=== PATIENT | female | born 1955 | race Hispanic/Latino ===

== ENCOUNTER 2018-02-06 03:59 | Inpatient (IN) | payer BC ==
[2018-02-06 04:06] VITALS: BMI 43.8
[2018-02-06] MEDS ORDERED: Cefepime IV 2 gm in NS 2 GM/100 ML BAG IVPB STA (04:41)
[2018-02-06] MEDS ORDERED: Vancomycin 1gm in NS 250ml 1 GM/250 ML BAG IVPB STA (04:41)
--- NOTE | 2018-02-06 04:41 | ED PDOC ---
Arrival/HPI - General Chief Complaint: Altered Mental Status Time Seen by Provider: 02/06/18 04:02 Historian: Patient, Shelter - History of Present Illness Narrative History of Present Illness (Text): 02/06/18 04:41 Smiley Caldera is a 62 year old female, whose past medical history includes hypertension, degenerative arthritis, kidney stones, and uterine cancer, who presents to the Emergency department transferred from [facility] for fever. Relative reports patient was recently transferred to [facility] for rehabilitation following treatment for sepsis at [facility]. As per [facility] documentation, patient developed a fever tonight, max temperature at 103F, with associated confusion. Patient received Tylenol at [facility] earlier tonight. Patient denies any abdominal pain, chest pain, back pain, nausea, vomiting, diarrhea, or any other complaints. Symptom Onset: Gradual Symptom Course: Unchanged Activities at Onset: Light Context: Home (custodial) Past Medical History - Provider Review Nursing Documentation Reviewed: Yes - Cardiac Hx Hypertension: Yes - Hematological/Oncological Hx Cancer: Yes - Musculoskeletal/Rheumatological Hx Falls: No - Genitourinary/Gynecological Hx Uterine Cancer: Yes - Psychiatric Hx Depression: No Hx Emotional Abuse: No Hx Physical Abuse: No Hx Substance Use: No - Surgical History Hx Hysterectomy: Yes - Suicidal Assessment Feels Threatened In Home Enviroment: No Family/Social History - Physician Review Nursing Documentation Reviewed: Yes Family/Social History: Unknown Family HX Smoking Status: Never Smoked Hx Alcohol Use: No Hx Substance Use: No Hx Substance Use Treatment: No Allergies/Home Meds Allergies/Adverse Reactions: Allergies No Known Allergies Allergy (Verified 02/06/18 11:59) Home Medications: Home Meds Medication Instructions Recorded Confirmed Acetaminophen [Tylenol] 650 mg PO PRN PRN 02/06/18 02/06/18 Albuterol HFA [Ventolin HFA 90 2 puff IH [id number] PRN 02/06/18 02/06/18 mcg/actuation (8 g)] Apixaban [Eliquis] 5 mg PO BID 02/06/18 02/06/18 Ascorbic Acid [Vitamin C] 500 mg PO DAILY 02/06/18 02/06/18 Atropine/Diphenoxylate [Lonox 1 tab PO Q6 PRN 02/06/18 02/06/18 0.025 MG-2.5 MG] Doxazosin [Cardura] 4 mg PO DAILY 02/06/18 02/06/18 Ferrous Sulfate 325 mg PO DAILY 02/06/18 02/06/18 Metoprolol Tartrate [Lopressor] 200 mg PO Q12 02/06/18 02/06/18 Multivitamin [Multi-Vitamin Daily] 1 each PO DAILY 02/06/18 02/06/18 NIFEdipine ER [Procardia XL] 90 mg PO DAILY 02/06/18 02/06/18 Ondansetron [Zuplenz] 4 mg PO Q6 PRN 02/06/18 02/06/18 Ranitidine HCl [Sunmark Acid 150 mg PO Q12 02/06/18 02/06/18 Aircraft Ordnance Technician] Silver Sulfadiazine 1% [Silvadene 1 appl TD DAILY 02/06/18 02/06/18 1%] Simvastatin [Zocor] 20 mg PO DAILY 02/06/18 02/06/18 Zinc Sulfate [Zinc Sulfate] 220 mg PO DAILY 02/06/18 02/06/18 cloNIDine [clonidine HCl] 0.1 mg PO DAILY 02/06/18 02/06/18 hydrALAZINE [hydralazine 10 mg PO Q8 02/06/18 02/06/18 Hydrochloride] Review of Systems - Physician Review All systems were reviewed & negative as marked: Yes - Review of Systems Constitutional: Fevers Eyes: Normal ENT: Normal Respiratory: Normal Cardiovascular: absent: Chest Pain Gastrointestinal: absent: Abdominal Pain, Diarrhea, Nausea, Vomiting Musculoskeletal: absent: Back Pain Physical Exam Vital Signs Reviewed: Yes Vital Signs Temp Pulse Resp BP Pulse Ox 02/06/18 10:00 101.7 F H 76 18 161/77 H 99 02/06/18 09:08 146/70 02/06/18 09:05 102.1 F H 02/06/18 08:53 102.1 F H 95 H 18 96 02/06/18 07:35 102.7 F H 02/06/18 06:03 103.9 F H 91 H 20 165/69 H 95 02/06/18 05:00 130/82 02/06/18 04:41 80 18 158/76 H 95 02/06/18 04:18 103.5 F H 110 H 20 98 Temperature: Febrile Pulse: Tachycardic Respiratory Rate: Normal Appearance: Positive for: Non-Toxic Pain Distress: None Mental Status: Positive for: Lethargic - Systems Exam Head: Present: Atraumatic, Normocephalic Pupils: Present: PERRL Extroacular Muscles: Present: EOMI Conjunctiva: Present: Normal Mouth: Present: Moist Mucous Membranes Neck: Present: Normal Range of Motion Respiratory/Chest: Present: Clear to Auscultation, Good Air Exchange. No: Respiratory Distress, Accessory Muscle Use Cardiovascular: Present: Regular Rate and Rhythm, Normal S1, S2. No: Murmurs Abdomen: No: Tenderness, Distention, Peritoneal Signs Upper Extremity: Present: Normal Inspection. No: Cyanosis, Edema Lower Extremity: Present: Normal Inspection. No: Edema Neurological: Present: GCS=15, CN II-XII Intact Skin: Present: Warm, Dry, Normal Color. No: Rashes Psychiatric: Present: Lethargic Medical Decision Making ED Course and Treatment: 02/06/18 04:41 Impression: 62 year old female brought in from [facility] for fever and confusion. Plan: -- EKG -- Chest X-ray -- Labs, VBG, troponin, blood cultures -- Urinalysis, urine cultures -- IV fluids -- Vancomycin -- Cefepime -- Reassess and disposition Progress Notes: 02/06/18 05:06 Reviewed EKG, sinus rhythm at 98 bpm. RBBB. LAFB. Non-specific ST/T wave changes. 02/06/18 05:34 Chest X-ray reviewed, shows no acute processes. case d/w dr woods will admit - Lab Interpretations Microbiology Results: Microbiology Results 02/06/18 04:40 Blood Blood Culture - Preliminary NO GROWTH AFTER 48 HOURS 02/06/18 04:20 Blood Blood Culture - Preliminary NO GROWTH AFTER 48 HOURS Lab Results: 02/06/18 04:20 02/06/18 04:20 Lab Results 02/06/18 04:20: Blood Type A POSITIVE, Antibody Screen Negative, Crossmatch See Detail, BBK History Checked No verified bt 02/06/18 04:20: Sodium 135, Chloride 101, Potassium 4.4, Carbon Dioxide 19 L, Anion Gap 19, BUN 32 H, Creatinine 2.7 H, Est GFR ( Amer) 21, Est GFR ( Non-Af Amer) 18, Random Glucose 135 H, Calcium 8.7, Phosphorus 3.3, Magnesium 2.1, Total Bilirubin 0.6, AST 70 H, ALT 83 H, Alkaline Phosphatase 130 H, Troponin I 0.02, Total Protein 8.4 H, Albumin 3.6, Globulin 4.8, Albumin/ Globulin Ratio 0.8 L 02/06/18 04:20: pO2 16 L, VBG pH 7.36, VBG pCO2 38.0 L, VBG HCO3 21.5, VBG Total CO2 22.7, VBG O2 Sat (Calc) 31.2 L, VBG Base Excess -3.6 L, VBG Potassium 4.5, Sodium 132.0, Chloride 103.0, Glucose 140 H, Lactate 1.2, FiO2 21.0, Venous Blood Potassium 4.5 02/06/18 04:20: PT 19.6 H, INR 1.70 H, APTT 33.0 02/06/18 04:20: WBC 9.7, RBC 3.17 L, Hgb 9.7 L, Hct 30.6 L, MCV 96.5, MCH 30.6, MCHC 31.7, RDW 17.3 H, Plt Count 368, MPV 8.7, Gran % 77.1 H, Lymph % (Auto) 13.3 L, [place] % (Auto) 9.1 H, Eos % (Auto) 0.4 L, Baso % (Auto) 0.1, Gran # 7.45 H, Lymph # (Auto) 1.3, [place] # (Auto) 0.9 H, Eos # (Auto) 0.0, Baso # (Auto) 0.01 - RAD Interpretation Radiology Orders: 02/06/18 04:41 CHEST PORTABLE [RAD] Stat 02/06/18 04:55 HEAD W/O CONTRAST [CT] Stat [employer] Car Cleaner: ED Physician - EKG Interpretation Interpreted by ED Physician: Yes Type: 12 lead EKG - Medication Orders Current Medication Orders: Acetaminophen (Tylenol 325mg Tab) 650 mg PO Q4H PRN PRN Reason: Fever >100.5 F Last Admin: 02/08/18 18:05 Dose: 650 mg MAR Pain/Vitals Document 02/08/18 18:05 AE (Rec: 02/08/18 18:06 AE [id number]) Pain Reassessment Is This A Pain ReAssessment? Yes Sleep Is patient sleeping during reassessment? No Presence of Pain Presence of Pain Yes Pain Scale Used Pain Scale Used Numeric Location Left, Right or Bilateral Bilateral Pain Location Body Site Ankle Description Constant Intensity 8 Pain Behavior Guarding Re-Assess: MAR Pain/Vitals Document 02/08/18 19:05 FDE (Rec: 02/08/18 19:50 FDE [id number]) Pain Reassessment Is This A Pain ReAssessment? Yes Sleep Is patient sleeping during reassessment? No Presence of Pain Presence of Pain No Apixaban (Eliquis) 5 mg PO BID [facility] PRN Reason: Protocol Last Admin: 02/08/18 19:42 Dose: Atorvastatin Calcium (Lipitor) 10 mg PO DIN [facility] Last Admin: 02/08/18 18:00 Dose: 10 mg Clonidine HCl (Catapres) 0.1 mg PO DAILY [facility] Last Admin: 02/08/18 10:14 Dose: 0.1 mg MAR Pulse and Blood Pressure Document 02/08/18 10:14 AE (Rec: 02/08/18 10:14 AE [id number]) Pulse Pulse Rate (60-90) 80 Blood Pressure Blood Pressure (100/60-150/90) 152/76 Doxazosin Mesylate (Cardura) 4 mg PO HS [facility] Last Admin: 02/08/18 21:31 Dose: 4 mg Famotidine (Pepcid) 20 mg PO 2200 [facility] Last Admin: 02/08/18 21:32 Dose: 20 mg Ferrous Sulfate (Feosol) 324 mg PO DAILY [facility] Last Admin: 02/08/18 10:15 Dose: 324 mg Hydralazine HCl (Apresoline) 10 mg PO TID [facility] Last Admin: 02/08/18 18:00 Dose: 10 mg MAR Pulse and Blood Pressure Document 02/08/18 18:00 AE (Rec: 02/08/18 18:00 AE [id number]) Pulse Pulse Rate (60-90) 82 Blood Pressure Blood Pressure (100/60-150/90) 126/64 Sodium Chloride (Sodium Chloride 0.9%) 1,000 mls @ 50 mls/hr IV .Q20H [facility] Last Admin: 02/08/18 18:06 Dose: 50 mls/hr eMAR Start Stop Document 02/08/18 18:06 AE (Rec: 02/08/18 18:06 AE [id number]) Intravenous Solution Start Date 02/08/18 Start Time 18:06 End Date 02/09/18 End time 18:00 Total Infusion Time 1434 Ceftriaxone Sodium (Rocephin 1 Gram Ivpb) 1 gm in 100 mls @ 100 mls/hr IVPB DAILY [facility]I PRN Reason: Protocol Stop: 02/16/18 11:01 Last Admin: 02/08/18 11:00 Dose: 100 mls/hr eMAR Start Stop Document 02/08/18 11:00 AE (Rec: 02/08/18 14:33 AE [id number]) Intravenous Solution Start Date 02/08/18 Start Time 11:00 End Date 02/08/18 End time 11:30 Total Infusion Time 30 Levalbuterol HCl (Xopenex) 0.63 mg IH [id number] PRN PRN Reason: Shortness of Breath Metoprolol Tartrate (Lopressor) 200 mg PO BID [facility] Last Admin: 02/08/18 18:00 Dose: 200 mg MAR Pulse and Blood Pressure Document 02/08/18 18:00 AE (Rec: 02/08/18 18:01 AE [id number]) Pulse Pulse Rate (60-90) 80 Blood Pressure Blood Pressure (100/60-150/90) 126/64 Multivitamins/Minerals (Therapeutic-M Tab) 1 tab PO 0800 [facility] Last Admin: 02/08/18 10:19 Dose: 1 tab Nifedipine (Procardia Xl) 90 mg PO DAILY [facility] Last Admin: 02/08/18 10:14 Dose: 90 mg Ondansetron HCl (Zofran Inj) 4 mg IVP Q6H PRN PRN Reason: Nausea/Vomiting Silver Sulfadiazine (Silvadene 1% 25 Gm) 0 gm TP DAILY [facility] Last Admin: 02/08/18 10:19 Dose: 25 gm Discontinued Medications Acetaminophen (Tylenol 325mg Tab) 650 mg PO STAT STA Stop: 02/06/18 06:14 Last Admin: 02/06/18 06:41 Dose: 650 mg MAR Pain/Vitals Document 02/06/18 06:41 SH (Rec: 02/06/18 06:41 [id number]) Pain Reassessment Is This A Pain ReAssessment? No Sleep Is patient sleeping during reassessment? No Presence of Pain Presence of Pain No Furosemide (Lasix) 20 mg IVP STAT STA Stop: 02/07/18 09:00 Last Admin: 02/07/18 09:47 Dose: 20 mg MAR Blood Pressure Document 02/07/18 09:47 SG (Rec: 02/07/18 09:47 SG [id number]) Blood Pressure Blood Pressure (100/60-150/90) 127/52 IVP Administration Document 02/07/18 09:47 SG (Rec: 02/07/18 09:47 SG [id number]) Charges for Administration # of IVP Administrations 1 Cefepime HCl (Maxipime 2gm) 2 gm in 100 mls @ 100 mls/hr IVPB STAT STA PRN Reason: Protocol Stop: 02/06/18 05:40 Last Admin: 02/06/18 05:09 Dose: 100 mls/hr eMAR Start Stop Document 02/06/18 05:09 SH (Rec: 02/06/18 05:09 SH [id number]) Intravenous Solution Start Date 02/06/18 Start Time 05:09 Sodium Chloride (Sodium Chloride 0.9%) 1,000 mls @ 1,000 mls/hr IV .Q1H [facility] Last Admin: 02/06/18 06:43 Dose: 1,000 mls/hr eMAR Start Stop Document 02/06/18 06:43 SH (Rec: 02/06/18 06:44 SH [id number]) Intravenous Solution Start Date 02/06/18 Start Time 06:43 Vancomycin HCl (Vancomycin 1gm) 1 gm in 250 mls @ 167 mls/hr IVPB STAT STA PRN Reason: Protocol Stop: 02/06/18 06:10 Last Admin: 02/06/18 05:09 Dose: 167 mls/hr eMAR Start Stop Document 02/06/18 05:09 (Rec: 02/06/18 05:10 [id number]) Intravenous Solution Start Date 02/06/18 Start Time 06:10 Cefepime HCl (Maxipime 2gm) 2 gm in 100 mls @ 100 mls/hr IVPB Q12 [facility]I PRN Reason: Protocol Stop: 02/11/18 10:01 Last Admin: 02/06/18 12:22 Dose: Dextrose (Dextrose 5% In Water 1000 Ml) 1,000 mls @ 125 mls/hr IV .Q8H [facility] Last Admin: 02/07/18 07:50 Dose: 125 mls/hr eMAR Start Stop Document 02/07/18 07:50 SG (Rec: 02/07/18 07:50 SG [id number]) Intravenous Solution Start Date 02/07/18 Start Time 07:50 Vancomycin HCl (Vancomycin 500mg In Ns) 500 mg in 100 mls @ 200 mls/hr IVPB Q12H [facility] Last Admin: 02/07/18 10:57 Dose: 200 mls/hr eMAR Start Stop Document 02/07/18 10:57 SG (Rec: 02/07/18 10:58 SG [id number]) Intravenous Solution Start Date 02/07/18 Start Time 10:57 End Date 02/07/18 End time 11:27 Total Infusion Time 30 Meropenem 500 mg/ Sodium (Chloride) 50 mls @ 100 mls/hr IVPB Q12 [facility] PRN Reason: Protocol Last Admin: 02/08/18 10:15 Dose: 100 mls/hr eMAR Start Stop Document 02/08/18 10:15 AE (Rec: 02/08/18 10:15 AE [id number]) Intravenous Solution Start Date 02/08/18 Start Time 10:15 End Date 02/08/18 End time 11:15 Total Infusion Time 60 Pneumococcal Polyvalent Vaccine (Pneumovax 23 Vaccine) 0.5 ml IM .ONCE ONE Stop: 02/06/18 15:02 Last Admin: 02/06/18 22:38 Dose: Immunization Registry Document 02/06/18 22:38 CDE (Rec: 02/06/18 22:39 CDE [id number]) Immunization Registry Consent Date 02/06/18 Potassium Chloride (K-Dur 20 Meq Er Tab) 20 meq PO ONCE ONE Stop: 02/07/18 09:00 Last Admin: 02/07/18 09:48 Dose: 20 meq - Scribe Statement The provider has reviewed the documentation as recorded by the Arian Reyes Provider Scribe Attestation: All medical record entries made by the Scribe were at my direction and personally dictated by me. I have reviewed the chart and agree that the record accurately reflects my personal performance of the history, physical exam, medical decision making, and the department course for this patient. I have also personally directed, reviewed, and agree with the discharge instructions and disposition. Disposition/Present on Arrival - Present on Arrival Any Indicators Present on Arrival: No History of DVT/PE: No History of Uncontrolled Diabetes: No Urinary Catheter: No History of Decub. Ulcer: No History Surgical Site Infection Following: None - Disposition Have Diagnosis and Disposition been Completed?: Yes Diagnosis: Sepsis Disposition: HOSPITALIZED Disposition Time: 06:40 Condition: FAIR
[2018-02-06 05:05] LABS: ALB/GLOB RATIO 0.8 (1.1-1.8); ALBUMIN 3.6 g/dL (3.0-4.8); CALCIUM 8.7 mg/dL (8.4-10.5)
[2018-02-06 05:06] LABS: VENOUS BLOOD GAS BASE EXCESS -3.6 mmol/L (0.0-2.0); VENOUS BLOOD GAS PO2 16 mm/Hg (30-55); VENOUS BLOOD PH 7.36 (7.32-7.43)
[2018-02-06 05:16] LABS: INR 1.7 (0.93-1.08); PROTHROMBIN TIME 19.6 SECONDS (9.4-12.5); TROPONIN I 0.02 ng/mL
[2018-02-06 05:19] LABS: EOS % 0.4 % (1.5-5.0); GRAN % 77.1 % (50.0-68.0); HEMOGLOBIN 9.7 g/dL (12.0-16.0); LYMPH % 13.3 % (22.0-35.0); MEAN CELL VOLUME 96.5 fl (80.0-105.0); MEAN CORPUSCULAR HEMOGLOBIN 30.6 pg (25.0-35.0); MEAN CORPUSCULAR HGB CONC 31.7 g/dl (31.0-37.0); MEAN PLATELET VOLUME 8.7 fl (7.0-11.0); MONO % 9.1 % (1.0-6.0); RBC 3.17 10^6/uL (3.5-6.1); RED CELL DISTRIBUTION WIDTH 17.3 % (11.5-14.5); WHITE BLOOD COUNT 9.7 10^3/ul (4.5-11.0)
[2018-02-06 05:20] LABS: BASO # 0.01 K/mm3 (0.0-2.0); BASO % 0.1 % (0.0-3.0); GRAN # 7.45 (1.4-6.5); LYMPH # 1.3 (1.2-3.4); MONO # 0.9 (0.1-0.6)
[2018-02-06] MEDS: Sodium Chloride 0.9% 1,000 ML IV SCH ×2 (05:46→06:43)
[2018-02-06] MEDS ORDERED: Sodium Chloride 0.9% 1,000 ML IV STA (06:42)
[2018-02-06 09:22] LABS: PH,URINE 6.5 (4.7-8.0); URINE BILIRUBIN SMALL (NEGATIVE); URINE BLOOD LARGE (NEGATIVE); URINE GLUCOSE (UA) NEGATIVE (NEGATIVE); URINE LEUKOCYTE ESTERASE LARGE Leu/uL (NEGATIVE); URINE PROTEIN >=300 mg/dL (<30 mg/dL); URINE UROBILINOGEN 0.2 E.U./dL (<1 E.U./dL)
[2018-02-06 09:25] LABS: URINE APPEARANCE TURBID (CLEAR); URINE COLOR LIGHT BROWN (YELLOW)
[2018-02-06 09:34] LABS: URINE BACTERIA MOD (NEG); URINE EPITHELIAL CELLS 0 - 2 /hpf (0-5); URINE RBC TNTC /hpf (0-2); URINE WBC TNTC /hpf (0-6)
[2018-02-06] MEDS ORDERED: Cefepime IV 2 gm in NS 2 GM/100 ML BAG IVPB SCH (10:00)
--- NOTE | 2018-02-06 10:00 | CT ---
PROCEDURE: CT HEAD WITHOUT CONTRAST. HISTORY: ams COMPARISON: None available. TECHNIQUE: Axial computed tomography images were obtained through the head/brain without intravenous contrast. Radiation dose: Total exam DLP = mGy-cm. This CT exam was performed using one or more of the following dose reduction techniques: Automated exposure control, adjustment of the mA and/or kV according to patient size, and/or use of iterative reconstruction technique. FINDINGS: HEMORRHAGE: No intracranial hemorrhage. BRAIN: No mass effect or edema. Oblique coned in the left periventricular white matter. VENTRICLES: Unremarkable. No hydrocephalus. CALVARIUM: Unremarkable. PARANASAL SINUSES: Unremarkable as visualized. No significant inflammatory changes. MASTOID AIR CELLS: Unremarkable as visualized. No inflammatory changes. OTHER FINDINGS: None. IMPRESSION: No acute hemorrhage.
--- NOTE | 2018-02-06 10:26 | RAD ---
HISTORY: Sepsis Patient COMPARISON: 01/26/2012. FINDINGS: LUNGS: The lungs are well inflated. There is mild pulmonary venous congestion. No focal consolidation. PLEURA: No significant pleural effusion identified, no pneumothorax apparent. CARDIOVASCULAR: Normal. OSSEOUS STRUCTURES: No significant abnormalities. VISUALIZED UPPER ABDOMEN: Normal. OTHER FINDINGS: None. IMPRESSION: No active pulmonary disease.
[2018-02-06] MEDS ORDERED: Levalbuterol 0.63 MG/3 ML Inhal Soln UD IH PRN (10:49)
[2018-02-06] MEDS ORDERED: Barium Sulfate Susp 2.1% w/v, 2.0% w/w 450 mL Bottle PO ONE (10:59)
[2018-02-06] MEDS ORDERED: Vancomycin 1 g Inj IVPB SCH (11:00)
[2018-02-06] MEDS: NIFEdipine 90 mg ER Tab PO SCH (12:16)
[2018-02-06] MEDS: Vancomycin 500mg in NS 500 MG/100 ML BAG IVPB SCH ×2 (12:22→22:37)
[2018-02-06] MEDS: Silver Sulfadiazine 1% Cream (25 gm) TP SCH (13:37)
[2018-02-06] MEDS: Meropenem 500 MG in Sodium Chloride 0.9% 50 ML IVPB SCH ×2 (13:37→22:38)
[2018-02-06] MEDS ORDERED: Pneumococcal 23-Valent Vaccine IM ONE (15:01)
--- NOTE | 2018-02-06 15:01 | CT ---
PROCEDURE: CT Abdomen and Pelvis without intravenous contrast HISTORY: fuo COMPARISON: None. TECHNIQUE: Technique. Contrast dose: Radiation dose: Total exam DLP = mGy-cm. This CT exam was performed using one or more of the following dose reduction techniques: Automated exposure control, adjustment of the mA and/or kV according to patient size, and/or use of iterative reconstruction technique. FINDINGS: LOWER THORAX: Unremarkable. LIVER: Unremarkable. No gross lesion or ductal dilatation. GALLBLADDER AND BILE DUCTS: Unremarkable. PANCREAS: Unremarkable. No gross lesion or ductal dilatation. SPLEEN: Unremarkable. ADRENALS: Unremarkable. No mass. KIDNEYS AND URETERS: Bilateral ureteral stents in place with bilateral renal pelvic dilatation and proximal ureteral distention. VASCULATURE: Unremarkable. No aortic aneurysm. BOWEL: Unremarkable. No obstruction. No gross mural thickening. APPENDIX: Unremarkable. Normal appendix. PERITONEUM: Unremarkable. No free fluid. No free air. LYMPH NODES: Unremarkable. No enlarged lymph nodes. BLADDER: Minimal air within the urinary bladder. Correlate for previous instrumentation. REPRODUCTIVE: Status post prostatectomy. BONES: No acute fracture. OTHER FINDINGS: None. IMPRESSION: Bilateral ureteral stents in place with bilateral renal pelvic dilatation and proximal ureteral distention. Status post prostatectomy.
--- NOTE | 2018-02-06 15:53 | HP ---
DATE OF EXAM: 02/06/2018 HISTORY OF PRESENT ILLNESS: This 62-year-old female was examined at her bedside in the presence of her daughter and . She was admitted to [facility] with a fever in excess of 102 for the past 12 hours. She was recently admitted to the [facility] rehabilitation center for reconditioning and gait training and has a significant past medical history of recurrent uterine cancer, most recently with bilateral hydronephrosis and renal failure that required bilateral ureteral stents and the patient now has acute on chronic renal failure stage III to IV. The patient also was receiving outpatient chemotherapy and radiation; however, that is on hold now that the patient is deconditioned and was admitted for rehabilitation for ambulation and reconditioning. PAST MEDICAL HISTORY: Also significant for anemia of chronic disease, chronic hypertension, morbid obesity, history of blood clot in her upper extremity status post placement of a Port-A-Cath, for which she is now receiving Eliquis; also with history of degenerative arthritis and hyperlipidemia. REVIEW OF SYSTEMS: HEAD: There were no headache or seizures. EYES: No change in visual acuity. EARS: No hearing loss. THROAT: No swallowing difficulty. NECK: No stiffness. CARDIAC: No chest pain, no palpitation. PULMONARY: Denies cough. No hemoptysis. GI: Denied vomiting or diarrhea. : Has bilateral ureteral stents and a chronic St catheter for history of obstructive uropathy and chronic renal failure stage IV. HEMATOLOGICAL: Anemia of chronic disease. VASCULAR: No claudication. ENDOCRINOLOGICAL: Hyperlipidemia. MUSCULOSKELETAL: Degenerative arthritis. SKIN: She has a healed sacral ulcer. FAMILY HISTORY: Noncontributory. SOCIAL HISTORY: She is nondrinker, nonsmoker, non IV drug misuser. She is a retired homemaker. PHYSICAL EXAMINATION VITAL SIGNS: At present shows temperature of 102.1, respiratory rate 18, pulse 95 and blood pressure 146/70 with a pulse ox of 96% on room air. HEENT: Head was normocephalic, atraumatic. Eyes: No icterus. Ears: Clear. Throat: Noninjected. NECK: Supple. HEART: Regular S1, S2. No pathological rubs, murmurs or gallops. LUNGS: Clear to auscultation. ABDOMEN: Obese, nontender. No palpable organomegaly. EXTREMITIES: Show no clubbing, no cyanosis, no edema. SKIN: Showed a healed sacral ulcer with a small skin tear near her buttocks. VASCULAR: Legs warm to touch. PSYCHOLOGICAL: Alert and oriented x3. NEUROLOGICAL: Markedly deconditioned. IMAGING: Chest x-ray was reviewed. It showed no focal consolidation, no pleural effusions, no active pulmonary disease. EKG showed sinus rhythm with nonspecific ST-T wave changes. Head CT was reviewed, it showed no acute hemorrhage, no stroke, no hydrocephalous. LABORATORY DATA: Influenza A and B negative. White count 9700, hemoglobin 9.7, hematocrit 30.6, platelets 368,000. PT/INR 1.7, PTT 33. Sodium 135, K 4.4, chloride 101, bicarb 19, BUN 32, creatinine 2.7. Estimated GFR 18 mL per minute, glucose 135, calcium 8.7, phosphorous 3.3, bilirubin 0.6, AST 70, ALT 83, alkaline phosphatase 130. Troponin 0.02. Urinalysis showed moderate bacteria. IMPRESSION: A 62-year-old female with history of recurrent uterine cancer, status post hysterectomy and history of obstructive uropathy, for which the patient has bilateral ureteral stents and a St catheter chronically, also with deconditioning, anemia of chronic disease, elevated LFTs, chronic hypertension, morbid obesity and history of upper extremity deep venous thrombosis status post Port-A-Cath placement, as well as hyperlipidemia and degenerative arthritis, now with fever and probable sepsis. PLAN: My plans are to continue medication including Maxipime 2 g IV every 12 hours and vancomycin 500 mg IV every 12 hours. Pending is Infectious Disease consultation. She is scheduled for hepatitis panel, comprehensive metabolic panel. Repeat CBC in a.m. and blood and urine cultures have been requested. St catheter will be changed. She will continue on hydralazine 10 mg p.o. t.i.d., Cardura 4 mg p.o. at bedtime, clonidine 0.1 mg p.o. daily, D5W at 125 mL per hour, Eliquis 5 mg p.o. b.i.d., Feosol 324 mg p.o. daily, Lopressor 200 mg p.o. b.i.d., holding for any pulse less than 50; Maxipime 2 g IV every 12 hours, Pepcid 20 mg p.o. b.i.d., Procardia XL 90 mg p.o. daily, Silvadene to her sacral wound topically daily while rotating the patient frequently to prevent further skin breakdown, multivitamin 1 tablet daily, Tylenol 650 p.o. every 4 hours p.r.n. temperature greater than 101, Xopenex 0.63 mg inhalational every 6 hours p.r.n. shortness of breath. I have requested an abdominopelvic CT with p.o. contrast only for fever of unknown origin. She is ordered to have a moderate carbohydrate diet. She remains at bedrest and additional workup and adjustment of medication will be based on clinical progress. Greater than 75 minutes was spent in the care management, review of labs, orders, x-rays and outlining of orders and medications for the patient and discussion with the patient and family at bedside as well as with nursing. All questions were answered. Luisa Pa MD MTDD
--- NOTE | 2018-02-06 16:48 | CP.PCM.CON ---
History of Present Illness - History of Present Illness History of Present Illness: 62 year old female with PMH of HTN, degenerative arthritis, history of nephrolithiasis S/P ureteral stent placement, uterine cancer was brought in to [facility] from the [facility] because of fevers with rigors and shaking chills. The patient has some nausea but denies vomiting, no abdominal pain, no headache, no cough, no chest pain, does not know if she has hematuria. She also has an indwelling St catheter and as per the family, the catheter has not been changed for about 6 weeks now. When I saw the patient, she was having fevers with teeth-chattering. Infectious Diseases consult is requested to further evaluate and manage. Review of Systems - Review of Systems All systems: reviewed and no additional remarkable complaints except (as per HPI ) Past Patient History - Past Social History Smoking Status: Never Smoked - CARDIAC Hx Hypertension: Yes - HEMATOLOGICAL/ONCOLOGICAL Hx Cancer: Yes - MUSCULOSKELETAL/RHEUMATOLOGICAL Hx Falls: No - GENITOURINARY/GYNECOLOGICAL Hx Uterine Cancer: Yes - PSYCHIATRIC Hx Depression: No Hx Emotional Abuse: No Hx Physical Abuse: No Hx Substance Use: No - SURGICAL HISTORY Hx Hysterectomy: Yes Meds Allergies/Adverse Reactions: Allergies Allergy/AdvReac Type Severity Reaction Status Date / Time No Known Allergies Allergy Verified 02/06/18 11:59 - Medications Medications: Current Medications Acetaminophen (Tylenol 325mg Tab) 650 mg PO Q4H PRN PRN Reason: Fever >100.5 F Sodium Chloride (Sodium Chloride 0.9%) 1,000 mls @ 1,000 mls/hr IV .Q1H JAMARI Last Admin: 02/06/18 06:43 Dose: 1,000 mls/hr Sodium Chloride (Sodium Chloride 0.9%) 1,000 mls @ 100 mls/hr IV .Q10H STA Stop: 02/06/18 16:41 Physical Exam - Constitutional Appears: Chronically Ill, Other (rigors present and teeth-chattering) - Head Exam Head Exam: NORMAL INSPECTION - ENT Exam ENT Exam: Mucous Membranes Moist - Neck Exam Neck exam: Negative for: Meningismus - Respiratory Exam Respiratory Exam: Decreased Breath Sounds - Cardiovascular Exam Cardiovascular Exam: +S1, +S2 - GI/Abdominal Exam GI & Abdominal Exam: Soft. absent: Tenderness Results - Vital Signs Recent Vital Signs: Last Vital Signs Temp 103.9 F H 02/06/18 06:03 Pulse 91 H 02/06/18 06:03 Resp 20 02/06/18 06:03 BP 165/69 H 02/06/18 06:03 Pulse Ox 95 02/06/18 06:03 - Labs Result Diagrams: 02/06/18 04:20 02/06/18 04:20 Assessment & Plan - Assessment and Plan (Free Text) Plan: Assessment Severe sepsis with acute on chronic renal failure due to probable pyelonephritis in this patient with history of nephrolithiasis S/P ureteral stent placement bilaterally and indwelling St catheter HTN degenerative arthritis history of nephrolithiasis S/P ureteral stent placement uterine cancer morbid obesity with BMI 44 Plan Patient was started on Cefepime but we have started Merrem instead and will follow up blood cx, urine cx; reviewed CT A/P - recommend to change St catheter would recommend Urology evaluation will monitor clinically
[2018-02-06 16:52] LABS: HEPATITIS B SURFACE AG Negative (NEGATIVE)
[2018-02-06 16:58] LABS: HEPATITIS A IGM NEGATIVE (NEGATIVE); HEPATITIS B CORE AB NEGATIVE (NEGATIVE)
[2018-02-06 17:09] LABS: HEPATITIS C ANTIBODY NEGATIVE (NEGATIVE)
--- NOTE | 2018-02-06 22:46 | CARD ---
APPROVED REPORT EKG Measurement Heart [id number] <Conclusion> Sinus rhythm Right bundle branch block Left anterior fascicular block Bifascicular block Abnormal ECG
[2018-02-07 06:25] LABS: HEMOGLOBIN 7.9 g/dL (12.0-16.0); MEAN CORPUSCULAR HEMOGLOBIN 29.7 pg (25.0-35.0); MEAN CORPUSCULAR HGB CONC 32.5 g/dl (31.0-37.0); MEAN PLATELET VOLUME 8.3 fl (7.0-11.0); RBC 2.66 10^6/uL (3.5-6.1); RED CELL DISTRIBUTION WIDTH 16.6 % (11.5-14.5); WHITE BLOOD COUNT 7.9 10^3/ul (4.5-11.0)
[2018-02-07 06:49] LABS: ALB/GLOB RATIO 0.7 (1.1-1.8); ALBUMIN 2.9 g/dL (3.0-4.8)
[2018-02-07 06:53] LABS: MEAN CELL VOLUME 91.4 fl (80.0-105.0)
[2018-02-07] MEDS ORDERED: Potassium Chloride 20 mEq ER Tab PO ONE (08:59)
[2018-02-07] MEDS: Multivitamin With Minerals Tab PO SCH (09:48)
[2018-02-07] MEDS: NIFEdipine 90 mg ER Tab PO SCH (09:49)
[2018-02-07] MEDS: Meropenem 500 MG in Sodium Chloride 0.9% 50 ML IVPB SCH ×2 (09:50→21:25)
[2018-02-07] MEDS: Sodium Chloride 0.9% 1,000 ML IV SCH (09:53)
[2018-02-07] MEDS: Silver Sulfadiazine 1% Cream (25 gm) TP SCH (10:14)
[2018-02-07] MEDS: Vancomycin 500mg in NS 500 MG/100 ML BAG IVPB SCH (10:57)
--- NOTE | 2018-02-07 19:00 | CON ---
DATE: 02/07/2018 GENITOURINARY CONSULTATION CHIEF COMPLAINT: Fever. HISTORY OF PRESENT ILLNESS: This is a 62-year-old female who is seen in [facility]. The patient was admitted with a fever yesterday in excess of 102 degrees. She has a significant medical history of recurrent uterine cancer. The patient's reports that she recently had bilateral hydronephrosis and renal failure. She had cystoscopy with insertion of bilateral ureteral stents and has been receiving radiation and chemotherapy for her uterine cancer. Yesterday, when the patient was admitted, a St catheter change was ordered. Initially, nurses were unable to place the St catheter. House physician was called who was able to successfully place the St catheter and reportedly about 300 mL of urine were drained. consultation is requested regarding the above. PAST MEDICAL HISTORY: Significant for recurrent uterine cancer, hydronephrosis, chronic kidney disease, anemia, obesity, DVT, arthritis and hyperlipidemia. MEDICATIONS: Currently include hydralazine, Cardura, Catapres, Eliquis, Feosol, Lipitor, Lopressor, meropenem, Pepcid, Procardia, Silvadene ointment, vitamins, Tylenol, vancomycin, Xopenex and Zofran. ALLERGIES: NO KNOWN DRUG ALLERGIES. FAMILY HISTORY: Noncontributory for this admission. SOCIAL HISTORY: Denies any current smoking or EtOH use. REVIEW OF SYSTEMS: A 12-point review of systems was obtained. They are positives for fever and chills, positives for weakness and lethargy, positives for vague abdominal pain and low back pain, positive for difficulty ambulating, positives for urinary retention, unable to void. Other systems are negative. PHYSICAL EXAMINATION GENERAL: The patient is awake, alert, in no acute distress. She is answering questions, although she is a poor historian. Most of the history is provided by her who was at bedside. VITAL SIGNS: She is currently at a low grade fever of 100.4, pulse of 74, BP 134/64, respirations are 20. NECK: Supple. There is no obvious mass or adenopathy noted. CHEST: Revealed slightly decreased inspiratory effort. CARDIAC: Shows positive S1, S2. There is [id number] peripheral edema noted. ABDOMEN: Obese, soft, nontender, nondistended. There is no CVA tenderness noted. There is no obvious mass noted. GENITOURINARY: There is a St catheter in place draining clear colored urine. EXTREMITY: There is no cyanosis. There is [id number] peripheral edema noted. LABORATORY DATA: WBC count normal at 7.9. GFR 24. Urinalysis: Too numerous to count rbc's, too numerous to count wbc's, positive nitrites. Blood cultures preliminarily no growth after 24 hours. On radiologic exam, the patient had a CT scan of the abdomen and pelvis done yesterday, which showed bilateral ureteral stents were in place. There is dilated renal pelvis, bilateral renal pelvic dilatation and proximal ureteral distention. There is minimal air within the bladder. IMPRESSION AND PLAN: This is a 62-year-old female admitted with a fever, possible urinary origin; chronic kidney disease. Urologically, St catheter has been changed. I would continue her on IV antibiotics until the source of her fever is known. As for the indwelling ureteral stents, I discussed with her that these should be changed every 6 months. He reports they were placed about 2 months ago, so it is not time for this to occur. Obviously, the patient should continue to follow up with her oncologist for further treatment of the recurrent uterine carcinoma. As for the St catheter, this should be changed monthly at this point as it appears she has had chronic urinary retention. If the patient's condition improves and she is able to get out of bed and ambulate, we can consider a voiding trial, but I would recommend the patient to follow up with her prior urologists who placed the stents to see if they have any further information regarding her bladder function. If the patient is going to be following up here, I would plan on a cystoscopy and stent change in about 4 months and we can change her St monthly as needed. Thank you for allowing me to participate in the care of this patient. Jaiden Trinidad MD
--- NOTE | 2018-02-07 22:44 | PN ---
DATE: 02/07/2018 SUBJECTIVE: Patient was seen in bed, in no acute distress, nontoxic. Patient was seen earlier this morning in 266. PHYSICAL EXAMINATION: VITAL SIGNS: Temperature of 100.9, T max is 101.5, respiratory rate 19, heart rate of 88. HEENT: Unremarkable. NECK: Supple. LUNGS: Decreased breath sounds. HEART: Normal S1, S2. ABDOMEN: Soft, nontender. LABORATORY DATA: Laboratory examination reveals the patient's white count is 7.9, hemoglobin of 7.9, platelet of 263. Chemistry reveals BUN of 26, creatinine of 2.1, procalcitonin 0.26. Urinalysis is noted, too numerous to count wbc's. Stool occult blood is positive. Serology: Influenza is negative. Hepatitis serology is negative. Microbiology: Blood cultures are negative. Urine cultures have two different gram-negative rods. ALLERGIES: PATIENT HAS NO KNOWN ALLERGIES. MEDICATIONS: Reveals the patient to be on meropenem and vancomycin. LFTs are elevated. Patient had a CAT scan of the abdomen and pelvis; bilateral ureteral stents with bilateral renal pelvic dilatation and ureteral distention. Dr. Jaiden Trinidad's consultation is reviewed. His impression is a 62-year-old female with fever of urinary origin, kidney disease, catheter. Review of orders reveals the patient 's meropenem is active. Patient also had a chest x-ray which was negative. Dr. Pa's history and physical examination is reviewed. ASSESSMENT AND PLAN: This is a 62-year-old with severe sepsis, with acute on chronic renal failure and gram-negative nick with possible stent infection and distention. identified a gram-negative nick in the urine with negative blood cultures. We discontinue the vancomycin. Continue the meropenem and we will follow closely with you. Km Tavera MD
[2018-02-08 06:53] LABS: HEMOGLOBIN 8.4 g/dL (12.0-16.0); MEAN CORPUSCULAR HEMOGLOBIN 29.7 pg (25.0-35.0); MEAN CORPUSCULAR HGB CONC 33.3 g/dl (31.0-37.0); MEAN PLATELET VOLUME 8.4 fl (7.0-11.0); RBC 2.83 10^6/uL (3.5-6.1); RED CELL DISTRIBUTION WIDTH 17.3 % (11.5-14.5); WHITE BLOOD COUNT 5.1 10^3/ul (4.5-11.0)
[2018-02-08 09:27] LABS: ALB/GLOB RATIO 0.7 (1.1-1.8); ALBUMIN 2.4 g/dL (3.0-4.8); BILIRUBIN,DIRECT 0.2 mg/dL (0.0-0.4)
[2018-02-08] MEDS: NIFEdipine 90 mg ER Tab PO SCH (10:14)
[2018-02-08] MEDS: Meropenem 500 MG in Sodium Chloride 0.9% 50 ML IVPB SCH (10:15)
[2018-02-08] MEDS: Multivitamin With Minerals Tab PO SCH (10:19)
[2018-02-08] MEDS: Silver Sulfadiazine 1% Cream (25 gm) TP SCH (10:19)
[2018-02-08 10:21] LABS: IRON 26 ug/dL (45-180)
--- NOTE | 2018-02-08 10:28 | CP.PCM.CON ---
<Domenica Haines - Last Filed: 02/08/18 18:32> History of Present Illness - History of Present Illness History of Present Illness: Seen and examined at this morning at bedside, chart reviewed. Patient present. Request for GI consult is for anemia. HPI: This is a 62-year-old male with a past medical history recurrent uterine cancer, chronic kidney disease came to [facility] emergency department, patient's temperature reported 102. The patient was recently admitted to [facility]. According to the patient patient found to have a blood clot from , no melena or bright red blood per rectum. Her hemoglobin was 7.9 yesterday and found to be guaiac positive. She does admit heartburn and takes Zantac prn and not on a regular basis. No complaints of weight loss or loss of appetite or dysphagia. Patient did have a formed BM today no report of melena. Patient reported feeling weak yesterday as per patient , she appears more awake alert, she is status post 1 unit of PRBC. Denies ever having EGD or colonoscopy. Yesterday patient had CT scan with oral contrast no acute findings in bowel. She has a ureteral stents in place w/ bilateral renal pelvic dilation and proximal ureteral distension, (+) UTI. Patient has H/O Uterine cancer s/p radiation and had last chemo a few months ago, as per it is on hold till patient is stronger. PMH: CKD, stage II/IV, HTN, Uterine cancer, blood clot upper ext s/p Port-A- Cath placement on Eliquis, HLD, Degenerative arthitits PSH: chelecystectomy,bilateral ureteral stents, Family HX: mother: Lung cancer (non-smoker) Allergies: NKDA MEDS: reviewed was per OCT Social HX: no etoh,smoking, or illicit drugs ROS: systems reviewed w/ positive findings, see HPI. Past Patient History - Past Social History Smoking Status: Never Smoked - CARDIAC Hx Hypertension: Yes - RENAL Hx Chronic Kidney Disease: Yes (had kidney stents as per ?) Hx Kidney Stones: Yes - HEMATOLOGICAL/ONCOLOGICAL Hx Cancer: Yes - INTEGUMENTARY Hx Dermatological Problems: Yes Other/Comment: 02-06-18 SACRAL PRESSURE ULCER STAGE 2 measures 1 x 0.5 cm. gluteal cleft with darkened skin discoloration. moist .has a mild serous skin discoloration.Silvadene cream applied at the senior living. healed scarred area to right hip. - MUSCULOSKELETAL/RHEUMATOLOGICAL Hx Arthritis: Yes - GASTROINTESTINAL Hx Gastrointestinal Disorders: Yes Hx Gall Bladder Disease: Yes (choleycstectomy) - GENITOURINARY/GYNECOLOGICAL Hx Uterine Cancer: Yes - PSYCHIATRIC Hx Depression: No Hx Emotional Abuse: No Hx Physical Abuse: No Hx Substance Use: No - SURGICAL HISTORY Hx Hysterectomy: Yes Meds Allergies/Adverse Reactions: Allergies Allergy/AdvReac Type Severity Reaction Status Date / Time No Known Allergies Allergy Verified 02/06/18 11:59 - Medications Medications: Current Medications Acetaminophen (Tylenol 325mg Tab) 650 mg PO Q4H PRN PRN Reason: Fever >100.5 F Last Admin: 02/08/18 02:12 Dose: 650 mg Apixaban (Eliquis) 5 mg PO BID [facility] PRN Reason: Protocol Last Admin: 02/07/18 17:53 Dose: 5 mg Atorvastatin Calcium (Lipitor) 10 mg PO DIN [facility] Last Admin: 02/07/18 17:52 Dose: 10 mg Clonidine HCl (Catapres) 0.1 mg PO DAILY [facility] Last Admin: 02/07/18 13:27 Dose: 0.1 mg Doxazosin Mesylate (Cardura) 4 mg PO HS [facility] Last Admin: 02/07/18 22:40 Dose: 4 mg Famotidine (Pepcid) 20 mg PO 2200 [facility] Last Admin: 02/07/18 22:40 Dose: 20 mg Ferrous Sulfate (Feosol) 324 mg PO DAILY [facility] Last Admin: 02/07/18 09:48 Dose: 324 mg Hydralazine HCl (Apresoline) 10 mg PO TID [facility] Last Admin: 02/07/18 17:55 Dose: 10 mg Meropenem 500 mg/ Sodium (Chloride) 50 mls @ 100 mls/hr IVPB Q12 JAMARI PRN Reason: Protocol Last Admin: 02/07/18 21:25 Dose: 100 mls/hr Sodium Chloride (Sodium Chloride 0.9%) 1,000 mls @ 50 mls/hr IV .Q20H [facility] Last Admin: 02/07/18 09:53 Dose: 50 mls/hr Levalbuterol HCl (Xopenex) 0.63 mg IH [id number] PRN PRN Reason: Shortness of Breath Metoprolol Tartrate (Lopressor) 200 mg PO BID [facility] Last Admin: 02/07/18 17:52 Dose: 200 mg Multivitamins/Minerals (Therapeutic-M Tab) 1 tab PO 0800 [facility] Last Admin: 02/07/18 09:48 Dose: 1 tab Nifedipine (Procardia Xl) 90 mg PO DAILY [facility] Last Admin: 02/07/18 09:49 Dose: 90 mg Ondansetron HCl (Zofran Inj) 4 mg IVP Q6H PRN PRN Reason: Nausea/Vomiting Silver Sulfadiazine (Silvadene 1% 25 Gm) 0 gm TP DAILY [facility] Last Admin: 02/07/18 10:14 Dose: 25 gm Physical Exam - Constitutional Appears: No Acute Distress - Head Exam Head Exam: NORMOCEPHALIC - Eye Exam Eye Exam: Normal appearance. absent: Scleral icterus - ENT Exam ENT Exam: Mucous Membranes Moist - Neck Exam Neck exam: Positive for: Normal Inspection - Respiratory Exam Respiratory Exam: NORMAL BREATHING PATTERN. absent: Rales, Wheezes, Respiratory Distress - Cardiovascular Exam Cardiovascular Exam: +S1, +S2 - GI/Abdominal Exam GI & Abdominal Exam: Normal Bowel Sounds, Soft. absent: Distended, Organomegaly , Rebound, Tenderness Additional comments: castellanos, slight cloudy and mild pink tinge - Extremities Exam Extremities exam: Positive for: pedal pulses present. Negative for: calf tenderness, pedal edema - Neurological Exam Neurological exam: Alert, Oriented x3 - Skin Skin Exam: Dry, Warm Results - Vital Signs Recent Vital Signs: Last Vital Signs Temp 98.0 F 02/08/18 06:00 Pulse 64 02/08/18 06:00 Resp 19 02/08/18 06:00 BP 107/46 L 02/08/18 06:00 Pulse Ox 94 L 02/08/18 06:00 - Labs Result Diagrams: 02/08/18 06:30 02/08/18 06:30 Labs: Laboratory Results - last 24 hr 02/07/18 02/08/18 02/08/18 12:00 06:30 06:30 WBC 5.1 D RBC 2.83 L Hgb 8.4 L Hct 25.2 L MCV 89.0 MCH 29.7 MCHC 33.3 RDW 17.3 H Plt Count 253 MPV 8.4 Sodium 135 Potassium 3.8 Chloride 105 Carbon Dioxide 20 L Anion Gap 15 BUN 27 H Creatinine 2.1 H Est GFR ( Amer) 29 Est GFR (Non-Af Amer) 24 Random Glucose 103 Calcium 8.0 L Total Bilirubin Direct Bilirubin AST ALT Alkaline Phosphatase Total Protein Albumin Globulin Albumin/Globulin Ratio Stool Occult Blood Positive H 02/08/18 06:30 WBC RBC Hgb Hct MCV MCH MCHC RDW Plt Count MPV Sodium Potassium Chloride Carbon Dioxide Anion Gap BUN Creatinine Est GFR ( Amer) Est GFR (Non-Af Amer) Random Glucose Calcium Total Bilirubin 0.4 Direct Bilirubin 0.2 AST 110 H D ALT 94 H Alkaline Phosphatase 94 Total Protein 6.0 Albumin 2.4 L Globulin 3.6 Albumin/Globulin Ratio 0.7 L Stool Occult Blood Assessment & Plan - Assessment and Plan (Free Text) Assessment: ASSESSMENT: Fever , maybe secondary to UTI, ureteral stents Anemia, (+) occult , r/o PUD, angiodysplasia, Upper ARM DVT,on Eliquis UTI Elevated LFT, hepatitis panel negative, differential to consider is medication induced, hepatic congestion H/O cholecystectomy Uterine cancer, s/p radiation, last chemo a few months ago CKD PLAN: will check iron studies, Vit B12, Folate trend H/H and monitor for overt GI bleeding diet as tolerated on Eliquis on IV antibiotics as per ID Continue Pepcid on Iron supplements Consider EGD when optimal, discussed with patient and at bedside. Thank you for this consult and for allowing us to participate in your patient care, further recommendation based upon clinical course. Seen and discussed w/ Dr. Jo. <Silvino Jo V - Last Filed: 02/08/18 23:11> Meds - Medications Medications: Current Medications Acetaminophen (Tylenol 325mg Tab) 650 mg PO Q4H PRN PRN Reason: Fever >100.5 F Last Admin: 02/08/18 18:05 Dose: 650 mg Apixaban (Eliquis) 5 mg PO BID [facility] PRN Reason: Protocol Last Admin: 02/08/18 19:42 Dose: Not Given Atorvastatin Calcium (Lipitor) 10 mg PO DIN [facility] Last Admin: 02/08/18 18:00 Dose: 10 mg Clonidine HCl (Catapres) 0.1 mg PO DAILY [facility] Last Admin: 02/08/18 10:14 Dose: 0.1 mg Doxazosin Mesylate (Cardura) 4 mg PO HS [facility] Last Admin: 02/08/18 21:31 Dose: 4 mg Famotidine (Pepcid) 20 mg PO 2200 [facility] Last Admin: 02/08/18 21:32 Dose: 20 mg Ferrous Sulfate (Feosol) 324 mg PO DAILY [facility] Last Admin: 02/08/18 10:15 Dose: 324 mg Hydralazine HCl (Apresoline) 10 mg PO TID [facility] Last Admin: 02/08/18 18:00 Dose: 10 mg Sodium Chloride (Sodium Chloride 0.9%) 1,000 mls @ 50 mls/hr IV .Q20H [facility] Last Admin: 02/08/18 18:06 Dose: 50 mls/hr Ceftriaxone Sodium (Rocephin 1 Gram Ivpb) 1 gm in 100 mls @ 100 mls/hr IVPB DAILY [facility] PRN Reason: Protocol Stop: 02/16/18 11:01 Last Admin: 02/08/18 11:00 Dose: 100 mls/hr Levalbuterol HCl (Xopenex) 0.63 mg IH [id number] PRN PRN Reason: Shortness of Breath Metoprolol Tartrate (Lopressor) 200 mg PO BID [facility] Last Admin: 02/08/18 18:00 Dose: 200 mg Multivitamins/Minerals (Therapeutic-M Tab) 1 tab PO 0800 [facility] Last Admin: 02/08/18 10:19 Dose: 1 tab Nifedipine (Procardia Xl) 90 mg PO DAILY [facility] Last Admin: 02/08/18 10:14 Dose: 90 mg Ondansetron HCl (Zofran Inj) 4 mg IVP Q6H PRN PRN Reason: Nausea/Vomiting Silver Sulfadiazine (Silvadene 1% 25 Gm) 0 gm TP DAILY [facility] Last Admin: 02/08/18 10:19 Dose: 25 gm Results - Vital Signs Recent Vital Signs: Last Vital Signs Temp 99.2 F 02/08/18 17:50 Pulse 51 L 02/08/18 21:46 Resp 18 02/08/18 17:50 BP 126/64 02/08/18 18:00 Pulse Ox 94 L 02/08/18 06:00 - Labs Result Diagrams: 02/08/18 18:40 02/08/18 06:30 Labs: Laboratory Results - last 24 hr 02/08/18 02/08/18 02/08/18 06:30 06:30 06:30 WBC 5.1 D RBC 2.83 L Hgb 8.4 L Hct 25.2 L MCV 89.0 MCH 29.7 MCHC 33.3 RDW 17.3 H Plt Count 253 MPV 8.4 Sodium 135 Potassium 3.8 Chloride 105 Carbon Dioxide 20 L Anion Gap 15 BUN 27 H Creatinine 2.1 H Est GFR ( Amer) 29 Est GFR (Non-Af Amer) 24 Random Glucose 103 Calcium 8.0 L Iron TIBC % Saturation Ferritin Total Bilirubin 0.4 Direct Bilirubin 0.2 AST 110 H D ALT 94 H Alkaline Phosphatase 94 Total Protein 6.0 Albumin 2.4 L Globulin 3.6 Albumin/Globulin Ratio 0.7 L Vitamin B12 Folate 02/08/18 02/08/18 02/08/18 06:30 06:30 18:40 WBC 4.9 RBC 3.07 L Hgb 9.3 L Hct 27.3 L MCV 88.9 MCH 30.3 MCHC 34.1 RDW 17.5 H Plt Count 282 MPV 8.5 Sodium Potassium Chloride Carbon Dioxide Anion Gap BUN Creatinine Est GFR ( Amer) Est GFR (Non-Af Amer) Random Glucose Calcium Iron 26 L TIBC 157 L % Saturation 17 L Ferritin 1130.0 Total Bilirubin Direct Bilirubin AST ALT Alkaline Phosphatase Total Protein Albumin Globulin Albumin/Globulin Ratio Vitamin B12 385 Folate 13.9 Attending/Attestation - Attestation I have personally seen and examined this patient.: Yes I have fully participated in the care of the patient.: Yes I have reviewed all pertinent clinical information: Yes Notes (Text): This is an addendum to GI consult report dictated by Domenica Haines NP. .The patient was seen and examined earlier. Medical records, lab studies, imagings were reviewed. Last 24 hours events reviewed. Agreed with the above treatment plan as outlined in Domenica Haines' notes the with the addition of the following 02/08/18 23:08
[2018-02-08 10:31] LABS: % IRON SATURATION 17 % (20-55); TOTAL IRON BINDING CAPACITY 157 ug/dL (265-497)
--- NOTE | 2018-02-08 10:48 | PN ---
DATE OF EXAM: 02/07/2018 SUBJECTIVE: This 62-year-old female was examined at her bedside in the presence of her , Joe and nurse, Bina Lyles, registered nurse. The patient remains bedridden, weak and deconditioned. She is still running low-grade fevers and is treated being treated for probable urosepsis with parenteral antibiotics. The patient appears markedly deconditioned and was transferred from a local long-term to the [facility] for acute onset of fever and dehydration. At present, she is receiving IV fluids, IV meropenem and is also receiving treatment for chronic hypertension, anemia of chronic disease, hyperlipidemia and chronic renal failure stage IV. She denies any chills, chest pain or shortness of breath and is in a normal sinus rhythm on the rn cardiac rehab. PHYSICAL EXAMINATION: VITAL SIGNS: At the time of her physical exam, she had a temperature of 99.8, respirations 20, pulse 74 and blood pressure 145/70. HEENT: Head: Normocephalic, atraumatic. Eyes: No icterus. Ears: Clear. Throat: Noninjected. NECK: Supple. HEART: With regular S1, S2. LUNGS: With no wheezing, no rhonchi. ABDOMEN: Obese, nontender, no palpable organomegaly. EXTREMITIES: No clubbing, no cyanosis, no edema. SKIN: No rash. Her buttock sacral skin tear unchanged. VASCULAR: Legs warm to touch. PSYCHOLOGICAL: Alert and oriented x3. NEURO: Grossly intact, but markedly deconditioned. LABORATORY DATA: Her labs showed a white count is 7900, hemoglobin 7.9, hematocrit 24.3, platelets 263,000. Sodium 131, K 3.7, chloride 101, bicarb 20, BUN 26, creatinine 2.1. Estimated GFR 24 mL/minute. Random blood sugar 153. Bilirubin 0.4, AST 52, ALT 60 and alk phos 97. Albumin 2.9. Procalcitonin level 2.6. Urinalysis showed moderate bacteria. Stool for occult blood positive. Serology for hepatitis A, B and C serology negative. Influenza A and B serologies are negative. Abdominopelvic CT was reviewed. Gallbladder and common bile ducts were unremarkable. Her liver was unremarkable. There were no gross lesions or ductal dilatation. On review of her kidney and ureters, there were bilateral ureteral stents in place, bilateral renal pelvic dilatation and proximal ureteral dilatation. The patient is status post hysterectomy. IMPRESSION: A 62-year-old female with jnkjn-jq-oortrhl renal failure stage 4, chronic hypertension, morbid obesity, history of recurrent uterine cancer, status post a Port-A-Cath removal and history of an upper extremity deep venous thrombosis, for which she is currently taking Eliquis, now with guaiac-positive stools. Ozank-tq-cjvtllr anemia, anemia of gastrointestinal bleeding, anemia of chronic disease, hyperlipidemia, chronic hypertension, sacral skin tear, degenerative arthritis and marked deconditioning, now with probable urosepsis. PLAN: The plan as outlined with the patient's at bedside and nurse, Bina Lyles will be to transfuse this patient 2 units of packed red blood cells and I have placed a consultation with Dr. Silvino Jo from . Also, the patient is awaiting consultation by Dr. Jaiden Trinidad regarding her chronic urological issues including bilateral renal stents, probable urosepsis, need for chronic indwelling St, all in the setting of chronic renal failure stage 4. She is being followed by Infectious Disease, who are recommending meropenem 500 mg IV every 12 while awaiting the identification and sensitivity studies of her urine and blood culture. She will continue on hydralazine 10 mg p.o. t.i.d., Cardura 4 mg p.o. at bedtime, clonidine 0.1 mg p.o. daily, Eliquis 5 mg p.o. b.i.d., Feosol 324 mg p.o. daily, Lipitor 10 mg p.o. at dinner time, Lopressor 200 mg p.o. b.i.d., meropenem 500 mg IV every 12. Her IV fluids have been changed to 0.9 saline at 50 mL/hour. She will be given one dose of Lasix 20 mg IV, K-Dur 20 mEq p.o. x1 dose, Pepcid 20 mg p.o. at bedtime, Procardia-XL 90 mg p.o. daily. Her buttock wound is being treated with Silvadene and a dry sterile dressing daily and the patient was encouraged to be out of bed to chair with physical therapy for ambulation as able. She will continue on multivitamin 1 tablet daily, Xopenex inhalational therapy 0.63 mg inhalational every 6 hours p.r.n. shortness of breath, Tylenol 650 p.o. every 4 hours p.r.n. pain or temperature greater than 101 and Zofran 4 mg IV every 6 hours p.r.n. nausea and vomiting. She is ordered to have basic metabolic panel, CBC for a.m., physical therapy for ambulation safety. Diet will be adjusted by GI in probable anticipation of endoscopy. Incentive spirometry is encouraged to every 1 hour and she remains on fall precautions. Greater than sixty minutes were spent in the care and management, review of labs, orders, x-rays and discussion of this patient's care with nursing, family and herself, family members at bedside. All questions were answered. Luisa Pa MD MTDD
[2018-02-08] MEDS: cefTRIAXone 1 gm 1 GM/100 ML BAG IVPB SCH (11:00)
--- NOTE | 2018-02-08 11:37 | PN ---
DATE OF EXAM: 02/08/2018 SUBJECTIVE: This 62-year-old female was examined at bedside in the presence of her daughter April and case was reviewed in detail with nurse, Sung. The patient is being readied for endoscopy testing for guaiac-positive stools by Dr. Silvino Jo this morning. She was downgraded to clear liquid diet and is n.p.o. at present. She denies any fever, chills, chest pain or shortness of breath and is a normal sinus rhythm on the equipment monitor phototypesetting. PHYSICAL EXAMINATION: VITAL SIGNS: Physical exam shows temperature 98, respirations 19, pulse 80, blood pressure 152/76 and pulse ox 94% on room air. HEENT: Head is normocephalic, atraumatic. Eyes: No icterus. Ears: Clear. Throat: Noninjected. NECK: Supple. HEART: Regular S1, S2. LUNGS: Clear. ABDOMEN: Soft, obese. No rebound. No guarding. No tenderness. EXTREMITIES: No clubbing, no cyanosis, no edema. SKIN: Without rash, sacral skin tear, clean and dry. VASCULAR: Legs warm to touch. PSYCHOLOGICAL: Alert and oriented x3. NEURO: Grossly intact. Marked deconditioning. LABORATORY DATA: White count 5100, hemoglobin 8.4, hematocrit 25.2, platelets 253,000. Sodium 135, K 3.8, chloride 105, bicarb 20, BUN 27, creatinine 2.1. Estimated GFR 24 mL per minute. Calcium 8; iron 26; TIBC 157; percent saturation 17%, low. Bilirubin 0.4, direct bilirubin 0.2, AST 110, ALT 94, alk phos 94. Urinalysis showed moderate bacteria. Stool for occult blood positive. Hepatitis A, B, C serology negative. Influenza A and B serology negative. IMPRESSION: A 62-year-old female, now with Escherichia coli urosepsis on microbiology reporting with sensitivities showing Escherichia coli sensitive to ampicillin, Ancef, Maxipime and meropenem. Blood cultures are showing no growth at 48 hours. She has comorbidities of chronic hypertension; history of right upper extremity deep venous thrombosis, on Eliquis; status post Port-A-Cath removal; history of anemia of chronic disease; seqyq-ew-apgmivu anemia; anemia of gastrointestinal bleeding; hyperlipidemia; chronic hypertension; obesity; sacral skin tear; degenerative arthritis and deconditioning. PLAN: Plan as discussed with the patient, family, nursing and co-consultants from Infectious Disease, Gastroenterology will be to continue hydralazine 10 mg p.o. t.i.d., Cardura 4 mg p.o. at bedtime, Catapres 0.1 mg p.o. daily, Eliquis 5 mg p.o. b.i.d., Feosol 324 mg p.o. daily, Lipitor 10 mg p.o. daily, Lopressor 200 mg p.o. b.i.d., Pepcid 20 mg p.o. at bedtime, Procardia XL 90 mg p.o. daily. Infectious Diseases has adjusted antibiotics to Rocephin 1 g IV every 24, Silvadene topical to sacral skin tear daily with dry sterile dressing, 0.9 saline at 50 mL/hour, multivitamin 1 tablet daily, Tylenol 650 p.o. every 4 hours p.r.n. pain or temperature greater than 101, Xopenex inhalational therapy 0.63 mg every 6 hours p.r.n. shortness of breath and Zofran 4 mg IV every 6 hours p.r.n. nausea and vomiting. The patient is due for 1 unit of packed red blood cells today. She will have a repeat hemoglobin and hematocrit in the a.m. as well as a basic metabolic panel, ferritin, folic acid and B12 levels have been requested. She will be ordered to have physical and occupational therapy for reconditioning and gait training. She is ordered to have fall precautions and incentive spirometry and to be out of bed to chair as able. She will have diet readjusted from clear liquids to full diet as per Dr. Jo from GI and ultimate plan will be for the patient to be return to [facility] and family is making appointments with oncologists and oncologists at the [facility] for further management of her metastatic uterine recurrent carcinoma. I did discuss with the patient, Dr. Jaiden Trinidad, Urology's recommendation that St catheter be changed monthly and that her ureteral stents will need to be replaced in approximately four more months. Greater than 60 minutes was spent in the care and management, review of labs, orders, x-rays and outlining of treatment plan for this patient with nursing and family at bedside. All questions were answered. Luisa Pa MD [facility] # [id number] KEO
[2018-02-08 16:47] LABS: FOLATE 13.9 ng/mL
[2018-02-08] MEDS: Sodium Chloride 0.9% 1,000 ML IV SCH (18:06)
[2018-02-08 19:19] LABS: HEMOGLOBIN 9.3 g/dL (12.0-16.0); MEAN CELL VOLUME 88.9 fl (80.0-105.0); MEAN CORPUSCULAR HEMOGLOBIN 30.3 pg (25.0-35.0); MEAN CORPUSCULAR HGB CONC 34.1 g/dl (31.0-37.0); MEAN PLATELET VOLUME 8.5 fl (7.0-11.0); RBC 3.07 10^6/uL (3.5-6.1); RED CELL DISTRIBUTION WIDTH 17.5 % (11.5-14.5); WHITE BLOOD COUNT 4.9 10^3/ul (4.5-11.0)
[2018-02-09] MEDS: Sodium Chloride 0.9% 1,000 ML IV SCH ×3 (02:25→21:33)
--- NOTE | 2018-02-09 06:23 | PN ---
DATE: 02/08/2018 SUBJECTIVE: Patient is in bed, in no acute distress, nontoxic. The patient was seen earlier this morning in room 266, bed 1 and the patient did have a low-grade fever earlier she states. PHYSICAL EXAMINATION: VITAL SIGNS: Temperature is 102, blood pressure is 150/70, respiratory rate of 18, heart rate of 61. HEENT: Examination is unremarkable. NECK: Supple. LUNGS: Have decreased breath sounds. HEART: Normal S1 and S2. ABDOMEN: Soft and nontender. No rebound. No guarding. LABORATORY EXAMINATION: Reveals the urine culture is positive for E. coli. The E. coli is sensitive to ampicillin, sensitive to ertapenem, sensitive to cefazolin. It is resistant to Bactrim and Cipro. Otherwise, sensitive to E. coli and the blood cultures are reported to be with no growth at 48 hours. Review of the white count reveals the patient's white count to be 5.1, hemoglobin of 8.4. Chemistries reveal the BUN of 27, creatinine is down to 2.1 and procalcitonin 0.26. Urinalysis is noted. CAT scan of the abdomen and pelvis is reviewed. consultation is also noted. Dr. Jaiden Trinidad's consultation is reviewed. ASSESSMENT AND PLAN: This is a 62-year-old female seen earlier today in 266, bed 1 with vsoex-iu-zaskxej renal failure with Escherichia coli with sepsis with Escherichia coli. Urine is the source for severe sepsis with roalx-ck-xbhlzgl renal failure with Escherichia coli as source in genitourinary tract with stents in. Recommend reconsulting the urologist, Dr. Jaiden Trinidad, regarding reviewing the CAT scan and the stent with persistence of fever, it is not an antibiotic issue, the Escherichia coli is pansensitive, may be able to discontinue the meropenem and new ceftriaxone. Pending Urology reevaluation regarding persistent fevers in a patient with stent and Escherichia coli in the urine. Again, this is not an antibiotic issue, the Escherichia coli is pansensitive. The patient needs urological intervention. We will discontinue meropenem, need ceftriaxone 1 g one daily adjusted for renal disease. Km Tavera MD
[2018-02-09 06:34] LABS: HEMOGLOBIN 9.2 g/dL (12.0-16.0)
[2018-02-09 07:08] LABS: CALCIUM 8.3 mg/dL (8.4-10.5)
--- NOTE | 2018-02-09 08:16 | PN ---
DATE: 02/09/2018 SUBJECTIVE: The patient was seen earlier this morning. She states she is doing well. She is awake and alert. Nursing staff caring for the patient states over night, no issues. She has not had any fevers and she has been afebrile, doing well. PHYSICAL EXAMINATION: VITAL SIGNS: Temperature is 97, blood pressure is 128/57. HEENT: Unremarkable. NECK: Supple. LUNGS: Have decreased breath sounds. HEART: Normal S1, S2. ABDOMEN: Soft, nontender. LABORATORY DATA: Reveals a white count of 4.9, hemoglobin of 9, platelets of 283. BUN of 27, creatinine of 2.1. AST is 110, ALT is 94, procalcitonin of 0.26. Urinalysis is noted. Microbiology reveals E. coli. It is sensitive to ampicillin. The urine and blood cultures are negative. Dr. Pa's note is reviewed. ASSESSMENT AND PLAN: This is a 62-year-old female with severe sepsis with xbbxj-lb-[id number] renal failure with Escherichia coli in the urine with a possible stent infection and Escherichia coli is identified as sensitive to ceftriaxone. Upon discharge, may change the ceftriaxone to p.o. ampicillin to complete a total of 10-14 days of antibiotics. Microbiology reveals the blood cultures are negative. Maybe able to switch to p.o. ampicillin to complete a total of 10-14 days of antibiotics. Km Tavera MD
--- NOTE | 2018-02-09 09:24 | US ---
PROCEDURE: Right upper extremity venous US CLINICAL HISTORY: Arm pain and swelling Evaluate for deep venous thrombosis. PHYSICIAN(S): Harsh Washburn M.D FINDINGS: The visualized rightinternal jugular vein is small and patent. This may be a collateral The visualized segments of the right subclavian vein are patent with normal waveforms. No sonographic evidence of obstruction or thrombosis is seen. The visualized deep venous system of the proximal right upper extremity is sonographically normal and compressible. IMPRESSION: 1. No sonographic evidence for acute deep venous thrombosis in the visualized segments of the right upper extremity.
[2018-02-09] MEDS: Silver Sulfadiazine 1% Cream (25 gm) TP SCH (09:42)
[2018-02-09] MEDS: cefTRIAXone 1 gm 1 GM/100 ML BAG IVPB SCH (09:42)
[2018-02-09] MEDS: NIFEdipine 90 mg ER Tab PO SCH (09:42)
[2018-02-09] MEDS: Multivitamin With Minerals Tab PO SCH (09:42)
[2018-02-09] MEDS ORDERED: TraMADol/Apap 37.5/325 mg Tab PO ONE (10:29)
[2018-02-09] MEDS ORDERED: TraMADol/Apap 37.5/325 mg Tab PO PRN (11:34)
--- NOTE | 2018-02-09 11:41 | CP.PCM.PN ---
<Domenica Haines - Last Filed: 02/09/18 11:39> Subjective - Date & Time of Evaluation Date of Evaluation: 02/09/18 Time of Evaluation: 09:45 - Subjective Subjective: S&E at bedside, chart reviewed, no N/V or abdominal pain, castellanos with gross hematuria, Eliquis on hold, had fomed Bm, no melena or BRBPR. Had doppler of RUE no DVT noted. No c/o SOB or chest pain. No acute overnight event as per nursing staff. Objective - Vital Signs/Intake and Output Vital Signs (last 24 hours): Temp Pulse Resp BP Pulse Ox 98.8 F 68 20 141/72 99 02/09/18 06:00 02/09/18 09:42 02/09/18 06:00 02/09/18 09:42 02/09/18 06:00 Intake and Output: 02/09/18 02/09/18 06:59 18:59 Intake Total 240 Output Total 1700 Balance -1460 - Medications Medications: Current Medications Acetaminophen (Tylenol 325mg Tab) 650 mg PO Q4H PRN PRN Reason: Fever >100.5 F Last Admin: 02/08/18 18:05 Dose: 650 mg Apixaban (Eliquis) 5 mg PO BID [facility] PRN Reason: Protocol Last Admin: 02/09/18 09:43 Dose: Not Given Atorvastatin Calcium (Lipitor) 10 mg PO DIN [facility] Last Admin: 02/08/18 18:00 Dose: 10 mg Clonidine HCl (Catapres) 0.1 mg PO DAILY [facility] Last Admin: 02/09/18 09:42 Dose: 0.1 mg Doxazosin Mesylate (Cardura) 4 mg PO HS [facility] Last Admin: 02/08/18 21:31 Dose: 4 mg Famotidine (Pepcid) 20 mg PO 2200 [facility] Last Admin: 02/08/18 21:32 Dose: 20 mg Ferrous Sulfate (Feosol) 324 mg PO DAILY [facility] Last Admin: 02/09/18 09:41 Dose: 324 mg Hydralazine HCl (Apresoline) 10 mg PO TID [facility] Last Admin: 02/09/18 09:42 Dose: 10 mg Sodium Chloride (Sodium Chloride 0.9%) 1,000 mls @ 50 mls/hr IV .Q20H [facility] Last Admin: 02/09/18 02:25 Dose: Not Given Ceftriaxone Sodium (Rocephin 1 Gram Ivpb) 1 gm in 100 mls @ 100 mls/hr IVPB DAILY [facility] PRN Reason: Protocol Stop: 02/16/18 11:01 Last Admin: 02/09/18 09:42 Dose: 100 mls/hr Levalbuterol HCl (Xopenex) 0.63 mg IH [id number] PRN PRN Reason: Shortness of Breath Metoprolol Tartrate (Lopressor) 200 mg PO BID [facility] Last Admin: 02/09/18 09:41 Dose: 200 mg Multivitamins/Minerals (Therapeutic-M Tab) 1 tab PO 0800 [facility] Last Admin: 02/09/18 09:42 Dose: 1 tab Nifedipine (Procardia Xl) 90 mg PO DAILY [facility] Last Admin: 02/09/18 09:42 Dose: 90 mg Ondansetron HCl (Zofran Inj) 4 mg IVP Q6H PRN PRN Reason: Nausea/Vomiting Silver Sulfadiazine (Silvadene 1% 25 Gm) 0 gm TP DAILY [facility] Last Admin: 02/09/18 09:42 Dose: 25 gm - Labs Labs: 02/09/18 06:00 02/09/18 06:00 PT 19.6 SECONDS (9.4-12.5) H 02/06/18 04:20 INR 1.70 (0.93-1.08) H 02/06/18 04:20 APTT 33.0 Seconds (25.1-36.5) 02/06/18 04:20 - Constitutional Appears: No Acute Distress - Head Exam Head Exam: NORMOCEPHALIC - Eye Exam Eye Exam: Normal appearance. absent: Scleral icterus - ENT Exam ENT Exam: Mucous Membranes Moist - Neck Exam Neck Exam: Normal Inspection - Respiratory Exam Respiratory Exam: NORMAL BREATHING PATTERN. absent: Respiratory Distress - Cardiovascular Exam Cardiovascular Exam: +S1, +S2 - GI/Abdominal Exam GI & Abdominal Exam: Soft, Normal Bowel Sounds. absent: Guarding, Tenderness, Rebound - Extremities Exam Extremities Exam: absent: Calf Tenderness, Pedal Edema - Neurological Exam Neurological Exam: Alert, Awake, Oriented x3 - Skin Skin Exam: Dry, Warm Assessment and Plan - Assessment and Plan (Free Text) Assessment: ASSESSMENT: Fever , maybe secondary to UTI, ureteral stents Anemia, (+) occult , r/o PUD, angiodysplasia, hematuria Iron def Anemia Upper ARM DVT,on Eliquis UTI Elevated LFT, hepatitis panel negative, differential to consider is medication induced, hepatic congestion H/O cholecystectomy Uterine cancer, s/p radiation, last chemo a few months ago CKD PLAN: trend H/H and monitor for overt GI bleeding diet as tolerated Eliquis on hold on IV antibiotics as per ID Continue Pepcid on Iron supplements plan for EGD 02/10/18, discuss w/ Dr. Salgado and spoke to patient NPO 12 midnight can have clear liquid breakfast Seen and discussed w/ Dr. Jo. <Silvino Jo V - Last Filed: 02/09/18 22:59> Objective - Vital Signs/Intake and Output Vital Signs (last 24 hours): Temp Pulse Resp BP Pulse Ox 97.3 F L 54 L 18 142/70 99 02/09/18 17:52 02/09/18 22:00 02/09/18 17:52 02/09/18 18:45 02/09/18 06:00 Intake and Output: 02/09/18 02/10/18 18:59 06:59 Intake Total 600 1010 Output Total 1000 300 Balance -400 710 - Medications Medications: Current Medications Acetaminophen (Tylenol 325mg Tab) 650 mg PO Q4H PRN PRN Reason: Fever >100.4 F Apixaban (Eliquis) 5 mg PO BID [facility] PRN Reason: Protocol Last Admin: 02/09/18 09:43 Dose: Not Given Atorvastatin Calcium (Lipitor) 10 mg PO DIN [facility] Last Admin: 02/09/18 18:45 Dose: 10 mg Clonidine HCl (Catapres) 0.1 mg PO DAILY [facility] Last Admin: 02/09/18 09:42 Dose: 0.1 mg Doxazosin Mesylate (Cardura) 4 mg PO HS [facility] Last Admin: 02/09/18 21:31 Dose: Not Given Famotidine (Pepcid) 20 mg PO 2200 [facility] Last Admin: 02/09/18 21:32 Dose: 20 mg Ferrous Sulfate (Feosol) 324 mg PO DAILY [facility] Last Admin: 02/09/18 09:41 Dose: 324 mg Hydralazine HCl (Apresoline) 10 mg PO TID [facility] Last Admin: 02/09/18 18:45 Dose: 10 mg Sodium Chloride (Sodium Chloride 0.9%) 1,000 mls @ 50 mls/hr IV .Q20H [facility] Last Admin: 02/09/18 21:33 Dose: 50 mls/hr Ceftriaxone Sodium (Rocephin 1 Gram Ivpb) 1 gm in 100 mls @ 100 mls/hr IVPB DAILY [facility] PRN Reason: Protocol Stop: 02/16/18 11:01 Last Admin: 02/09/18 09:42 Dose: 100 mls/hr Levalbuterol HCl (Xopenex) 0.63 mg IH [id number] PRN PRN Reason: Shortness of Breath Metoprolol Tartrate (Lopressor) 200 mg PO BID [facility] Last Admin: 02/09/18 18:45 Dose: Not Given Multivitamins/Minerals (Therapeutic-M Tab) 1 tab PO 0800 [facility] Last Admin: 02/09/18 09:42 Dose: 1 tab Nifedipine (Procardia Xl) 90 mg PO DAILY [facility] Last Admin: 02/09/18 09:42 Dose: 90 mg Ondansetron HCl (Zofran Inj) 4 mg IVP Q6H PRN PRN Reason: Nausea/Vomiting Silver Sulfadiazine (Silvadene 1% 25 Gm) 0 gm TP DAILY [facility] Last Admin: 02/09/18 09:42 Dose: 25 gm Tramadol/Acetaminophen (Ultracet 37.5/325 Mg) 1 tab PO Q12 PRN PRN Reason: Pain, moderate (4-7) - Labs Labs: 02/09/18 06:00 02/09/18 06:00 PT 19.6 SECONDS (9.4-12.5) H 02/06/18 04:20 INR 1.70 (0.93-1.08) H 02/06/18 04:20 APTT 33.0 Seconds (25.1-36.5) 02/06/18 04:20 Attending/Attestation - Attestation I have personally seen and examined this patient.: Yes I have fully participated in the care of the patient.: Yes I have reviewed all pertinent clinical information, including history, physical exam and plan: Yes Notes (Text): p 02/09/18 22:59
[2018-02-10] MEDS: cefTRIAXone 1 gm 1 GM/100 ML BAG IVPB SCH (09:04)
[2018-02-10] MEDS: Multivitamin With Minerals Tab PO SCH (09:04)
[2018-02-10] MEDS: NIFEdipine 90 mg ER Tab PO SCH (09:04)
[2018-02-10] MEDS: Silver Sulfadiazine 1% Cream (25 gm) TP SCH (09:28)
[2018-02-10] MEDS: Sodium Chloride 0.9% 1,000 ML IV SCH ×2 (10:09→17:33)
--- NOTE | 2018-02-10 13:55 | PN ---
DATE OF EXAM: 02/09/2018 SUBJECTIVE: This 62-year-old female was examined at the bedside in the presence of her nurse, Isabelle Melgar, registered nurse. The patient remains weak and deconditioned. She is being treated for urosepsis. She is receiving parenteral antibiotics and gentle IV fluids for multiple medical problems including qsfzx-yv-cjyxbzq renal failure, dehydration and urosepsis. At present, she denies any fever, chills, chest pain or shortness of breath and is awaiting GI evaluation by Dr. Silvino Jo. She was recently found to have guaiac-positive stools in the setting of dmkmf-ev-wiascne anemia. At present, she remains in a normal sinus rhythm on the cardiac nurse. She denies any active fever, chills, chest pain or shortness of breath and is cooperating with the nursing staff. PHYSICAL EXAMINATION: VITAL SIGNS: Temperature was 97.9, respirations 18, pulse 63, blood pressure 136/61. HEENT: Head: Normocephalic, atraumatic. Eyes: No icterus. Ears: Clear. Throat: Noninjected. NECK: Supple. HEART: Regular S1, S2. LUNGS: Clear. ABDOMEN: Obese, nontender. No palpable organomegaly. No rebound, no guarding. No tenderness. EXTREMITIES: No edema. SKIN: Without rash. NEUROLOGIC: Intact. PSYCHOLOGICAL: Alert. VASCULAR: Legs, warm to touch. Sacral wound is clean and dry. LABORATORY DATA: Urine culture shows E-coli sensitive to Ancef. Blood culture show no growth at 4 days. White count 4900, hemoglobin 9.2, hematocrit 27.8, platelets 282,000. Sodium 140, K 3.9, chloride 108, bicarb 21, BUN 22, creatinine 1.6. Estimated GFR 32 mL per minute. Iron 26, TIBC 157, percent saturation 17. Bilirubin 0.4, AST 110, ALT 94, alkaline phosphatase 94. Vitamin B12 level 385. Folic acid 13.9. Stool for occult blood positive. Hepatitis A, B, C serology negative. Influenza A and B serology negative. IMPRESSION: A 62-year-old female admitted with urosepsis; comorbidities of GI bleeding; emlpw-on-jcazdrv anemia; kqhir-rv-uclotdm renal insufficiency, improving; chronic hypertension; morbid obesity; history of recurrent uterine cancer, history of obstructive uropathy with internal ureteral stents in place and neurogenic bladder with urinary retention requiring chronic indwelling St, also with history of a right upper extremity deep venous thrombosis that is now resolved on current venous Doppler studies prompting the discontinuation of Eliquis given GI bleeding and worsening anemia requiring blood cell transfusion, also with iron-deficiency anemia, hyperlipidemia, sacral ulcer and recent dehydration, now improved. The plan as discussed with patient with Nursing present will be to continue hydralazine 10 mg p.o. t.i.d., Cardura 4 mg p.o. at bedtime, clonidine 0.1 mg p.o. daily. Discontinue Eliquis. She continues on Feosol 324 mg p.o. daily, Lipitor 10 mg p.o. daily, Lopressor 200 mg p.o. b.i.d., Pepcid 20 mg p.o. daily, Procardia XL 90 mg p.o. daily, Rocephin 1 g IV every 24 hours as outlined by Infectious Disease, Silvadene to her sacral skin tear daily with dry sterile dressings, 0.9 saline at 50 mL/hour, multivitamin 1 tablet daily, Tylenol 650 p.o. every 6 hours p.r.n. puwn-ov-eggqujiv pain or fever, Ultracet 1 tablet p.o. every 12 hours p.r.n. severe pain, Xopenex inhalational therapy 0.63 mg every 6 hours p.r.n. shortness of breath and Zofran 4 mg IV every 6 hours p.r.n. nausea and vomiting. The patient is ordered out of bed to chair and to ambulate with physical therapy as able. She is being readied for endoscopy. She is encouraged to do incentive spirometry every 1 hour and physical therapy with ambulation as able. Ultimate plan will be to return this patient to subacute rehab for reconditioning, gait training and family is in the process of scheduling oncological evaluation for this patient at the [facility] as per her family request. Greater than 1 hour were spent in the care management, review of labs, orders, x-rays, outlining of medication and dosaging and discussion of her case with Infectious Disease, Gastroenterology and Nursing as well as Urology. All questions were answered. Luisa Pa MD [facility] # [id number] MTDAlex
[2018-02-10] MEDS ORDERED: Propofol 10 mg/ml Inj (20 ML) ONE (14:37)
[2018-02-10] MEDS ORDERED: Sodium Chloride 0.9% 1,000 ML IV SCH (15:00)
--- NOTE | 2018-02-10 18:25 | PN ---
DATE: 02/10/2018 SUBJECTIVE: The patient is in bed, in no acute distress, was seen earlier today in 266, bed 1, nontoxic. PHYSICAL EXAMINATION: VITAL SIGNS: Temperature is 97, blood pressure is 130/50, respiratory rate of 16. HEENT: Unremarkable. NECK: Supple. LUNGS: Have decreased breath sounds. HEART: Normal S1, S2. ABDOMEN: Soft, nontender. LABORATORY DATA: Reveals the patient's white count of 4.9, hemoglobin of 9. Chemistries are noted. Creatinine is 1.6. Microbiology reveals E. coli in the urine. The blood cultures are no growth at 4 days and E. coli in the urine culture is relatively sensitive to ampicillin, ertapenem, cefazolin, cefepime. ASSESSMENT AND PLAN: This is a 62-year-old with severe sepsis with iyzri-yq-unbtnkm renal failure with Escherichia coli in the urine with possible stent infection and Escherichia coli is sensitive and may be able to use p.o. ampicillin upon discharge, total of 10 to 14 days of antibiotics with ampicillin upon discharge. Km Tavera MD
--- NOTE | 2018-02-11 08:05 | PN ---
DATE: 02/11/2018 SUBJECTIVE: The patient is in bed, seen earlier this morning, doing well. Awake and alert. No nausea, no vomiting. No fevers. OBJECTIVE: VITAL SIGNS: On exam, temperature is 98, blood pressure is 160/70, respiratory rate of 18, heart rate of 56. HEENT: Examination is unremarkable. NECK: Supple. LUNGS: Have decreased breath sounds. HEART: Normal S1, S2. ABDOMEN: Soft, nontender. DATA: Laboratory examination reveals the patient's urine cultures, the E. coli that is pansensitive, sensitive to ampicillin and the blood cultures are negative. White count is 4.9, BUN is 22, creatinine of 1.6. Urinalysis is noted and stool for occult blood is positive. Serology for influenza and hepatitis profile is negative. Review of orders reveal the patient to be on ceftriaxone.. Dr. Pa's note is reviewed. ASSESSMENT AND PLAN: This is a 62-year-old female seen earlier this morning in room 266, bed 1 who was admitted with severe sepsis with pbdsq-ks-xdbgegl renal failure with Escherichia coli in the urine as the source with stent, currently on ceftriaxone, may be able to switch to p.o. ampicillin upon discharge to complete 10-14 days of total therapy. The patient was given antibiotics in the Emergency Room on 02/06/2018, today is day #6 of 10-14 days and may switch to p.o. ampicillin to complete therapy upon discharge. Km Tavera MD
--- NOTE | 2018-02-11 08:12 | PN ---
DATE OF EXAM: 02/11/2018 SUBJECTIVE: This 62-year-old female was examined at her bedside and this case was reviewed in detail with herself, her 2 daughters at the bedside and nurse, Summer Slater, registered nurse. The patient is being prepped for endoscopy. She was found to have guaiac-positive stools, khssh-uf-zsvxgso anemia that required blood cell transfusion and has multiple comorbidities as previously listed. At present, she remains on parenteral antibiotics for E. coli urosepsis. The patient is cooperating with nursing staff. Denies any fever, chills, chest pain or shortness of breath. 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 PHYSICAL EXAMINATION: VITAL SIGNS: Her temperature was 97.7, respirations 18, pulse 50 and blood pressure 144/71. Pulse ox is 99% on room air. HEENT: Head normocephalic, atraumatic. Eyes: No icterus. Ears: Clear. Throat: Noninjected. NECK: Supple. HEART: Regular S1, S2. LUNGS: Clear. ABDOMEN: Obese, nontender. No palpable organomegaly. No rebound. No tenderness. No CVA discomfort. VASCULAR: Legs warm to touch. SKIN: Without rash. NEUROLOGICAL: Deconditioned. VASCULAR: Legs warm to touch. SKIN: Healing sacral skin tear. PSYCHOLOGICAL: Calm and cooperative. NEURO: Deconditioned. LABORATORY DATA: Labs show hemoglobin 9.2, hematocrit 27.8. Pretransfusion,7.9 with hematocrit 24.3. PT/INR 1.7, PTT 33. Sodium 140, K 3.9, chloride 108, bicarb 21, BUN 22, creatinine 1.6. Estimated GFR 32 mL per minute. Stool for occult blood positive. Hepatitis A, B, C serologies were negative and influenza A and B serology was negative as well. IMPRESSION: A 62-year-old female, admitted with Escherichia coli urosepsis and comorbidities of acute on chronic anemia in the setting of recently noted gastrointestinal bleeding with history of chronic hypertension, morbid obesity, recurrent uterine cancer, resolved right upper extremity deep venous thrombosis, previously treated with Eliquis, now discontinued given advanced anemia and guaiac-positive stools, hyperlipidemia, sacral skin tear, degenerative arthritis and deconditioning. The plan as discussed with the patient, daughters, nursing and GI and Infectious Disease consultants will be the following. #1 is we will continue hydralazine 10 mg p.o. t.i.d., Cardura 4 mg p.o. at bedtime, clonidine 0.1 mg p.o. daily and Eliquis has been discontinued, Feosol 324 mg p.o. daily, Lipitor 10 mg p.o. daily, Lopressor has been decreased to 150 mg p.o. b.i.d. while monitoring blood pressure and pulse rate. The patient and family were informed of this adjustment, Pepcid 20 mg p.o. at bedtime, Procardia XL 90 mg p.o. daily, Rocephin 1 g IV every 24, Silvadene topically to the sacral skin tear daily with a dry sterile dressing, 0.9 saline at 50 mL/hour, multivitamin 1 tablet daily, Tylenol 650 p.o. every 6 hours p.r.n. pain or temperature greater than 101 and Ultracet 1 tablet p.o. every 12 hours p.r.n. for severe pain, Xopenex inhalational therapy every 6 hours p.r.n. shortness of breath and Zofran 4 mg IV every 6 hours p.r.n. nausea and vomiting. The patient remains on wound care, out of bed to chair with ambulation as able. Nasal O2, heart healthy soft bland diet. She is encouraged to perform incentive spirometry every 1 hour. She is ordered to have physical therapy for reconditioning and gait training. Will complete a 14-day course of antibiotics for her Escherichia coli urinary tract sepsis and is undergoing gastrointestinal workup for gastrointestinal bleeding. She will continue to have electrolytes and CBC monitored. I did discuss with the family to pursue, they are scheduling of an oncological evaluation at the [facility] as per their request, which can be completed upon discharge from the [facility]. Greater than 45 minutes was spent in the care and management, review of labs, orders, x-rays, discussion of this patient's case with herself, family, nursing and co-consultants. All questions were answered. Luisa Pa MD [facility] # [id number] MTDD
[2018-02-11] MEDS: NIFEdipine 90 mg ER Tab PO SCH (09:00)
[2018-02-11] MEDS: cefTRIAXone 1 gm 1 GM/100 ML BAG IVPB SCH (09:00)
[2018-02-11] MEDS: Sodium Chloride 0.9% 1,000 ML IV SCH (09:01)
[2018-02-11] MEDS: Multivitamin With Minerals Tab PO SCH (09:07)
[2018-02-11] MEDS: Silver Sulfadiazine 1% Cream (25 gm) TP SCH (09:21)
--- NOTE | 2018-02-11 13:36 | PN ---
DATE: 02/11/2018 SUBJECTIVE: This 62-year-old female was examined at the bedside in the presence of her daughter, April and this case was reviewed in detail with herself, daughter and nurse, Alicja Aguilar. The patient remains hospitalized with multiple medical problems and is currently receiving IV antibiotics for E. coli urinary tract sepsis. She underwent an endoscopy yesterday that was positive for hiatal hernia, gastritis and Vinson's esophagus. She is in need of a colonoscopy because of guaiac positive stools and severe anemia that required blood cell transfusion. 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 According to her, she is ambulating with family and physical therapy. PHYSICAL EXAMINATION: VITAL SIGNS: Temperature was 97.8, respirations 19, pulse 84 and blood pressure 124/78. Pulse ox 99% on room air. HEENT: Head: Normocephalic, atraumatic. Eyes: No icterus. Ears: Clear. Throat: Noninjected. NECK: Supple. HEART: Regular S1, S2. LUNGS: Clear. ABDOMEN: Soft. EXTREMITIES: No edema. SKIN: Without rash. NEUROLOGICAL: Intact. Deconditioned. PSYCHOLOGICAL: Alert. VASCULAR: Legs warm to touch. LABORATORY DATA: Hemoglobin 9.2, hematocrit 27.8. Sodium 140, K 3.9, chloride 108, bicarb 21, BUN 22, creatinine 1.6. Estimated GFR 32 mL per minute. Iron 26, TIBC 157, percent saturation 17, ferritin 1130. B12 of 385. Folic acid 13.9. Hepatitis A, B, C serology negative. Influenza A and B serology negative. Stool for occult blood positive. IMPRESSION: A 62-year-old female admitted with urosepsis and comorbidities of metastatic recurrent uterine cancer, chronic hypertension, resolved right upper extremity deep venous thrombosis with Eliquis discontinued in the setting of gastrointestinal bleeding requiring blood cell transfusion, also iron-deficiency anemia component with hyperlipidemia, peptic ulcer disease with gastroesophageal reflux disease, degenerative arthritis and chronic obstructive pulmonary disease. PLAN: The plan as outlined will be to continue hydralazine, Cardura, Catapres, Feosol, Lipitor, Lopressor, Pepcid, Procardia-XL, IV Rocephin, Silvadene to sacral wound, 0.9 saline will be discontinued now that the patient is drinking adequately. She continues on multivitamin, Tylenol, Ultracet, Xopenex and Zofran. She is ordered out of bed to chair to ambulate for physical therapy and will be scheduled for colonoscopy as per Dr. Jo from GI. Wound care will be continued with ultimate plan for return to subacute rehab for reconditioning, gait training and the patient will be following up with oncologist at [facility] on 02/24/2018. Greater than 35 minutes was spent in the care and management, review of labs, orders, x-rays and discussion of this patient's care with herself, daughter and nursing. All questions were answered. Luisa Pa MD MTDD
[2018-02-12 07:12] LABS: CALCIUM 8.5 mg/dL (8.4-10.5)
[2018-02-12 07:25] LABS: HEMOGLOBIN 9.4 g/dL (12.0-16.0)
[2018-02-12] MEDS: cefTRIAXone 1 gm 1 GM/100 ML BAG IVPB SCH (10:11)
[2018-02-12] MEDS: Multivitamin With Minerals Tab PO SCH (10:17)
[2018-02-12] MEDS: Silver Sulfadiazine 1% Cream (25 gm) TP SCH (10:20)
[2018-02-12] MEDS: NIFEdipine 90 mg ER Tab PO SCH (10:24)
--- NOTE | 2018-02-12 11:53 | PN ---
DATE: 02/12/2018 SUBJECTIVE: Patient is in bed, in no acute distress. Nontoxic. PHYSICAL EXAMINATION: VITAL SIGNS: Temperature is 98, blood pressure is 160/60, respiratory rate of 20, heart rate of 64. HEENT: Examination is unremarkable. NECK: Supple. LUNGS: Have decreased breath sounds. HEART: Normal S1 and S2. ABDOMEN: Soft. DATA: Laboratory examination reveals a white count of 4.9. Chemistries reveals a BUN of 15, creatinine of 1.4. Procalcitonin 0.26. Urinalysis is noted and Microbiology reveals urine culture with E. coli. The blood cultures are negative. Dr. Pa's note from yesterday is reviewed. ASSESSMENT AND PLAN: This is a 62-year-old female who was seen earlier this morning in room 266, bed 1, was initially admitted with severe sepsis and awmbh-ru-qysxeku renal failure with Escherichia coli in the urine as a source and with stent placement and currently on ceftriaxone, may be able to switch to p.o. ampicillin upon discharge to complete 10 to 14 days. Today is day #7 of antibiotics and may switch at this point upon discharge to p.o. ampicillin. We will follow closely. Km Tavera MD
--- NOTE | 2018-02-12 16:12 | PN ---
DATE: 02/12/2018 SUBJECTIVE: This 62-year-old female remains hospitalized with multiple problems including E-coli urinary tract sepsis and gastrointestinal bleeding of unclear etiology. The patient is awaiting the scheduling of colonoscopy by Dr. Silvino Jo from . This is important to accomplish because the anemia required blood cell transfusion and the patient is to be readied for chemo and radiation therapy for her recurrent uterine cancer that is metastatic. The patient and family are aware of this issue and in agreement with colonoscopy at this time. She is tolerating IV antibiotics, oral medication and is ambulating with physical therapy. She denies any active chest pain, fever, chills or shortness of breath. PHYSICAL EXAMINATION: VITAL SIGNS: Today, temperature was 98.5, respirations 17, pulse 76 and blood pressure 137/74. Pulse ox 97%. HEENT: Head is normocephalic, atraumatic. Eyes: No icterus. Ears: Clear. Throat: Noninjected. NECK: Supple. HEART: Regular S1, S2. LUNGS: Clear. ABDOMEN: Obese. EXTREMITIES: No edema. SKIN: Without rash. NEUROLOGIC: Intact. PSYCHOLOGIC: Alert. VASCULAR: Legs warm to touch. LABORATORY DATA: Hemoglobin 9.4, hematocrit 29.3, status post blood cell transfusion. Sodium 142, K 4.2, chloride 109, bicarb 23, BUN 15, creatinine 1.4. Estimated GFR 38 mL per minute. Random blood sugar 113. Stool for occult blood positive. Hepatitis A, B, C serology negative. Influenza A and B antibodies negative as well. IMPRESSION: A 62-year-old female with urosepsis, on parenteral antibiotics with comorbidities of metastatic uterine cancer, chronic hypertension, morbid obesity, resolved right upper extremity blood clot, now with Port-A-Cath removed, anemia of chronic disease, anemia of iron deficiency, hyperlipidemia, peptic ulcer disease with gastroesophageal reflux disease, sacral skin tear healing, degenerative arthritis and chronic obstructive pulmonary disease. PLAN: The patient will continue on the cardiac gibson and she does continue on hydralazine 10 mg p.o. t.i.d., Cardura 4 mg p.o. at bedtime, clonidine 0.1 mg p.o. daily, Feosol 324 mg p.o. daily, Lipitor 10 mg p.o. daily, Lopressor 150 mg p.o. b.i.d., Pepcid 20 mg p.o. at bedtime, Procardia XL 90 mg p.o. daily, Rocephin 1 g IV every 24 hours, Silvadene topically to her sacral skin tear with a dry sterile dressing daily, multivitamin 1 tablet daily, Tylenol 650 p.o. every 6 hours p.r.n. pain or yzlj-nn-kmnrveri pain and also fever, Ultracet 1 tablet p.o. every 12 hours p.r.n. severe pain, Xopenex inhalational therapy every 6 hours p.r.n. shortness of breath and Zofran 4 mg IV every 6 hours p.r.n. nausea and vomiting. The patient is encouraged to be out of bed to chair. She is encouraged to drink fluids. She continues on nasal O2 p.r.n., heart healthy soft bland renal diabetic diet. She is encouraged to do incentive spirometry. She is receiving physical and occupational therapy and once she completes her colonoscopy, she will be readied for return to subacute rehab and she does have a appointment with a cancer specialist at the [facility] on 02/24/2018. Greater than 35 minutes was spent in the care management, review of labs, orders, x-rays and discussion of this patient with herself, family and nursing. All questions were answered. Luisa Pa MD MTDAlex
--- NOTE | 2018-02-13 05:57 | PN ---
DATE: 02/12/2018 SUBJECTIVE: This patient was seen and evaluated earlier today. The patient is tolerating the diet. No episodes of bleeding. PHYSICAL EXAMINATION: VITAL SIGNS: Temperature is 98.3, pulse 52, blood pressure is 115/76. HEENT: Atraumatic, anicteric. NECK: Supple. HEART: S1 and S2 heard. LUNGS: Bilateral air entry present, reduced at the base. ABDOMEN: Soft. LABORATORY DATA: Hemoglobin 9.4, hematocrit 29.3. Chemistry: Transferrin saturation 17%, low. BUN 15, creatinine 1.4. IMPRESSION AND PLAN: This 62-year-old patient with recurrence of the uterine cancer, had a urosepsis. The patient also has iron-deficiency anemia with stool for occult blood positive. The patient had an endoscopy done, which showed to consider colonoscopic evaluation of severe iron-deficiency anemia, status post transfusion and occult blood positive and negative upper gastrointestinal endoscopy for active bleeding source. We will discuss with the patient also. We will discuss with Dr. Pa regarding the time of the colonoscopic evaluation. Thank you very much for allowing us to participate in the care of the patient. Silvino Jo MD
[2018-02-13] MEDS: NIFEdipine 90 mg ER Tab PO SCH (09:30)
[2018-02-13] MEDS: Multivitamin With Minerals Tab PO SCH (09:30)
[2018-02-13] MEDS: Silver Sulfadiazine 1% Cream (25 gm) TP SCH (09:31)
[2018-02-13] MEDS: cefTRIAXone 1 gm 1 GM/100 ML BAG IVPB SCH ×2 (09:31→18:06)
[2018-02-13] MEDS ORDERED: Peg-Electrolyte Oral Soln 4L (Golytely) PO ONE (11:17)
--- NOTE | 2018-02-13 11:26 | CP.PCM.PN ---
<LienloryParulclint - Last Filed: 02/13/18 11:36> Subjective - Date & Time of Evaluation Date of Evaluation: 02/13/18 Time of Evaluation: 09:00 - Subjective Subjective: PGY-4 GI Fellow Progress Note Pt seen and examined this AM. States she feels a little better than day prior as far as strength goes. Denies any hematemesis, melena, hematochezia. 12 system ROS completed other than stated above Objective - Vital Signs/Intake and Output Vital Signs (last 24 hours): Temp Pulse Resp BP Pulse Ox 98 F 74 20 145/74 99 02/13/18 07:35 02/13/18 09:28 02/13/18 07:35 02/13/18 09:28 02/13/18 07:35 Intake and Output: 02/13/18 02/13/18 06:59 18:59 Intake Total 620 Output Total 950 Balance -330 - Medications Medications: Current Medications Acetaminophen (Tylenol 325mg Tab) 650 mg PO Q4H PRN PRN Reason: Fever >100.4 F Last Admin: 02/12/18 17:10 Dose: 650 mg Apixaban (Eliquis) 5 mg PO BID [facility] PRN Reason: Protocol Last Admin: 02/09/18 09:43 Dose: Not Given Atorvastatin Calcium (Lipitor) 10 mg PO DIN [facility] Last Admin: 02/12/18 17:09 Dose: 10 mg Bisacodyl (Dulcolax) 10 mg PO ONCE ONE Stop: 02/13/18 12:01 Clonidine HCl (Catapres) 0.1 mg PO DAILY [facility] Last Admin: 02/13/18 09:29 Dose: 0.1 mg Doxazosin Mesylate (Cardura) 4 mg PO HS [facility] Last Admin: 02/12/18 22:39 Dose: Not Given Famotidine (Pepcid) 20 mg PO 2200 [facility] Last Admin: 02/12/18 21:56 Dose: 20 mg Ferrous Sulfate (Feosol) 324 mg PO DAILY [facility] Last Admin: 02/13/18 09:28 Dose: 324 mg Hydralazine HCl (Apresoline) 10 mg PO TID [facility] Last Admin: 02/13/18 09:28 Dose: 10 mg Levalbuterol HCl (Xopenex) 0.63 mg IH [id number] PRN PRN Reason: Shortness of Breath Metoprolol Tartrate (Lopressor) 150 mg PO BID [facility] Last Admin: 02/13/18 09:29 Dose: 150 mg Multivitamins/Minerals (Therapeutic-M Tab) 1 tab PO 0800 [facility] Last Admin: 02/13/18 09:30 Dose: 1 tab Nifedipine (Procardia Xl) 90 mg PO DAILY [facility] Last Admin: 02/13/18 09:30 Dose: 90 mg Ondansetron HCl (Zofran Inj) 4 mg IVP Q6H PRN PRN Reason: Nausea/Vomiting Silver Sulfadiazine (Silvadene 1% 25 Gm) 0 gm TP DAILY [facility] Last Admin: 02/13/18 09:31 Dose: 25 gm Tramadol/Acetaminophen (Ultracet 37.5/325 Mg) 1 tab PO Q12 PRN PRN Reason: Pain, moderate (4-7) - Labs Labs: 02/12/18 06:00 02/12/18 06:00 PT 19.6 SECONDS (9.4-12.5) H 02/06/18 04:20 INR 1.70 (0.93-1.08) H 02/06/18 04:20 APTT 33.0 Seconds (25.1-36.5) 02/06/18 04:20 - Constitutional Appears: Well, No Acute Distress - Eye Exam Eye Exam: absent: Conjunctival injection, Scleral icterus Pupil Exam: absent: Irregular, Unequal - Respiratory Exam Respiratory Exam: Clear to Ausculation Bilateral. absent: Accessory Muscle Use - Cardiovascular Exam Cardiovascular Exam: absent: Bradycardia, Tachycardia - GI/Abdominal Exam GI & Abdominal Exam: Soft. absent: Guarding, Tenderness - Rectal Exam Rectal Exam: Deferred Assessment and Plan - Assessment and Plan (Free Text) Assessment: ASSESSMENT: Anemia, (+) occult (no obvious signs of bleeding per pt), EGD w/o source of GI bleed Iron def Anemia Upper ARM DVT,on Eliquis UTI, with fever, with ureteral stents Elevated LFTs, hepatitis panel negative, DDx medication induced, hepatic congestion H/O cholecystectomy Uterine cancer, s/p radiation, last chemo a few months ago CKD Plan: PLAN: Cont to trend H/H CLD today GOlytely Prep tonight for CSPY tomorrow NPO except meds after MN Eliquis on hold IV antibiotics as per ID Cont Pepcid Cont Iron supplements Seen and discussed w/ Dr. Jo. <Silvino Jo V - Last Filed: 02/13/18 23:29> Objective - Vital Signs/Intake and Output Vital Signs (last 24 hours): Temp Pulse Resp BP Pulse Ox 98.1 F 65 16 171/67 H 98 02/13/18 22:15 02/13/18 22:15 02/13/18 22:15 02/13/18 22:15 02/13/18 22:15 Intake and Output: 02/13/18 02/14/18 18:59 06:59 Intake Total 360 725 Output Total 700 Balance -340 725 - Medications Medications: Current Medications Acetaminophen (Tylenol 325mg Tab) 650 mg PO Q4H PRN PRN Reason: Fever >100.4 F Last Admin: 02/13/18 20:04 Dose: 650 mg Apixaban (Eliquis) 5 mg PO BID [facility] PRN Reason: Protocol Last Admin: 02/09/18 09:43 Dose: Not Given Atorvastatin Calcium (Lipitor) 10 mg PO DIN [facility] Last Admin: 02/13/18 18:05 Dose: 10 mg Clonidine HCl (Catapres) 0.1 mg PO DAILY [facility] Last Admin: 02/13/18 09:29 Dose: 0.1 mg Doxazosin Mesylate (Cardura) 4 mg PO HS [facility] Last Admin: 02/13/18 21:26 Dose: 4 mg Famotidine (Pepcid) 20 mg PO 2200 [facility] Last Admin: 02/13/18 21:26 Dose: 20 mg Ferrous Sulfate (Feosol) 324 mg PO DAILY [facility] Last Admin: 02/13/18 09:28 Dose: 324 mg Hydralazine HCl (Apresoline) 10 mg PO TID [facility] Last Admin: 02/13/18 18:05 Dose: 10 mg Ceftriaxone Sodium (Rocephin 1 Gram Ivpb) 1 gm in 100 mls @ 100 mls/hr IVPB DAILY [facility] PRN Reason: Protocol Last Admin: 02/13/18 18:06 Dose: Not Given Levalbuterol HCl (Xopenex) 0.63 mg IH [id number] PRN PRN Reason: Shortness of Breath Metoprolol Tartrate (Lopressor) 150 mg PO BID [facility] Last Admin: 07/02/18 18:03 Dose: 150 mg Multivitamins/Minerals (Therapeutic-M Tab) 1 tab PO 0800 [facility] Last Admin: 02/13/18 09:30 Dose: 1 tab Nifedipine (Procardia Xl) 90 mg PO DAILY [facility] Last Admin: 02/13/18 09:30 Dose: 90 mg Ondansetron HCl (Zofran Inj) 4 mg IVP Q6H PRN PRN Reason: Nausea/Vomiting Silver Sulfadiazine (Silvadene 1% 25 Gm) 0 gm TP DAILY [facility] Last Admin: 02/13/18 09:31 Dose: 25 gm Tramadol/Acetaminophen (Ultracet 37.5/325 Mg) 1 tab PO Q12 PRN PRN Reason: Pain, moderate (4-7) - Labs Labs: 02/12/18 06:00 02/12/18 06:00 PT 19.6 SECONDS (9.4-12.5) H 02/06/18 04:20 INR 1.70 (0.93-1.08) H 02/06/18 04:20 APTT 33.0 Seconds (25.1-36.5) 02/06/18 04:20 Attending/Attestation - Attestation I have personally seen and examined this patient.: Yes I have fully participated in the care of the patient.: Yes I have reviewed all pertinent clinical information, including history, physical exam and plan: Yes Notes (Text): This is an addendum to GI progress report dictated by the GI fellow The patient was seen and examined earlier. Medical records, lab studies, imagings were reviewed. Last 24 hours events reviewed. Agreed with the above treatment plan as outlined in GI fellow 's notes the with the addition of the following no melena or bleeding per rectum History of anemia and stool for occult blood positive status post transfusion on examination abdomen soft no tenderness EGD negative Scheduled for colonoscopy in am 02/13/18 23:26
[2018-02-13] MEDS ORDERED: Bisacodyl 5mg EC Tab PO ONE (12:00)
--- NOTE | 2018-02-13 17:44 | PN ---
DATE: 02/13/2018 SUBJECTIVE: The patient is in bed. She was seen early this morning in room 569, bed 1. No fevers and no chills. PHYSICAL EXAMINATION: VITAL SIGNS: Temperature is 98, blood pressure is 145/70, respiratory rate 20. HEENT: Unremarkable. NECK: Supple. LUNGS: Have decreased breath sounds. HEART: Normal S1, S2. ABDOMEN: Soft, nontender. LABORATORY EXAMINATION: Reveals a white count of 4.9, hemoglobin of 9, platelets of 283. Coagulation is noted. Chemistries reveals BUN of 15, creatinine of 1.4. Urinalysis is noted and serology is negative. Microbiology reveals E. coli in urine. The sensitivity is noted and the blood cultures are no growth. E. coli is sensitive to ampicillin. ASSESSMENT AND PLAN: A 62-year-old female. She was seen early this morning. She was initially admitted with severe sepsis with ceymx-gy-xsiyplh renal failure with E. coli in the urine as the source of the sepsis with stent placement. Currently on ceftriaxone. Today is day #8 of antibiotics. May switch to p.o. ampicillin to complete a total of 10-[address] Pa's note from yesterday is reviewed. Km Tavera MD
--- NOTE | 2018-02-13 18:09 | PN ---
DATE: 02/13/2018 SUBJECTIVE: This 62-year-old female was examined at the bedside in the presence of nurse Kisha Paredes and her daughter April. The patient is awaiting followup by Dr. Jo regarding diet and bowel prep for colonoscopy, hopefully tomorrow afternoon. At present, she denies any fever, chills, chest pain or shortness of breath and continues to do well on IV antibiotics for E-coli urinary tract sepsis. PHYSICAL EXAMINATION: VITAL SIGNS: Temperature is 98, respirations 20, pulse 60, blood pressure 150/82 with a pulse ox of 99% room air. HEENT: Head normocephalic, atraumatic. Eyes: No icterus. Ears: Clear. Throat: Noninjected. NECK: Supple. HEART: Irregular, S1, S2. LUNGS: Clear. ABDOMEN: Soft. extremities: No edema. SKIN: Without rash. Sacral skin tear is clean and dry. VASCULAR: Legs warm to touch. PSYCHOLOGIC: Alert and oriented x3. LABORATORY DATA: Current labs show hemoglobin 9.4, hematocrit 29.3. Sodium 142, K 4.3, chloride 109, bicarb 23, BUN 15, creatinine 1.4, random blood sugar 113. Stool for occult blood was positive. Hepatitis A, B, C serologies were negative and influenza A and B serologies were negative as well. IMPRESSION: This is a 62-year-old female with Escherichia coli urinary tract infection. Comorbidities of obesity, metastatic uterine cancer, hypertension, resolved right upper extremity deep venous thrombosis, now with guaiac-positive stools and anemia of chronic disease and iron-deficiency anemia with upper endoscopy revealing gastritis and hiatal hernia and patient in need of colonoscopy, also with hyperlipidemia, sacral skin tear and degenerative arthritis and to Escherichia coli urinary tract sepsis. PLAN: At present is to continue hydralazine 10 mg p.o. t.i.d., Cardura 4 mg p.o. at bedtime, clonidine 0.1 mg p.o. daily, Feosol 324 mg p.o. daily, Lipitor 10 mg p.o. daily, Lopressor 150 mg p.o. b.i.d., Pepcid 20 mg p.o. daily, Procardia XL 90 mg p.o. daily, Silvadene to her sacral skin tear daily with dry sterile dressing, multivitamin 1 tablet daily, Tylenol 650 p.o. every 4 hours p.r.n. temperature or pain that is mild to moderate, Ultracet 1 tablet p.o. every 12 hours p.r.n. severe pain, Xopenex inhalational therapy 0.63 mg inhalational every 6 hours p.r.n. shortness of breath and Zofran 4 mg IV every 6 hours p.r.n. nausea, vomiting. The patient will have her diet adjusted by Dr. Jo in preparation of her colonoscopy to clear liquids. She remains on nasal O2 p.r.n. She is encouraged to do incentive spirometry and is also encouraged to ambulate with family and physical therapy. Ultimate plan will be to return this patient to subacute rehab when medically stable and she will be following up with Oncology on 02/24/2018 for further recommendations for treatment of her metastatic recurrent uterine cancer. Greater than 35 minutes was spent in the care management, review of labs, orders, x-rays and outlining of medication, diet and colonoscopy prep plans with this patient today with family at bedside and nursing present. All questions were answered. Luisa Pa MD MTDAlex
[2018-02-14] MEDS ORDERED: Bisacodyl 5mg EC Tab PO ONE (06:49)
[2018-02-14] MEDS: Multivitamin With Minerals Tab PO SCH (08:00)
[2018-02-14] MEDS: cefTRIAXone 1 gm 1 GM/100 ML BAG IVPB SCH (09:46)
[2018-02-14] MEDS: NIFEdipine 90 mg ER Tab PO SCH (09:46)
--- NOTE | 2018-02-14 13:12 | PN ---
DATE: 02/14/2018 SUBJECTIVE: This 62-year-old female was examined at her bedside in the presence of her , Joe and this case was reviewed in detail with her nurse, Sera Child, registered nurse. The patient is continuing to drink GoLYTELY for a preparation for colonoscopy, hopefully this afternoon. The patient according to the nurse is still not having clear bowel movement evacuations and was encouraged to finish her bowel prep by myself at bedside. The patient was also given Dulcolax 2 tablets slightly earlier and had a tap water enema as well. She denies any fever, chills, chest pain or shortness of breath. PHYSICAL EXAMINATION: VITAL SIGNS: Temperature was 99, respirations 20, pulse 77 and blood pressure 166/83 with a pulse ox of 98% on room air. HEENT: Head normocephalic, atraumatic. Eyes: No icterus. Ears: Clear. Throat: Noninjected. NECK: Supple. HEART: Regular S1, S2. LUNGS: Clear. ABDOMEN: Soft. EXTREMITIES: No edema. SKIN: Without rash. NEUROLOGICAL: Intact. PSYCHOLOGICAL: Alert and oriented x3. VASCULAR: Legs warm to touch. Sacral skin tear reportedly clean and dry. LABORATORY DATA: Initial urine culture growing E. coli, now on repeat dated 02/12/2018 shows no growth. IMPRESSION: A 62-year-old female admitted with Escherichia coli urosepsis and comorbidities of metastatic uterine cancer; chronic hypertension; morbid obesity; history of right upper extremity deep venous thrombosis, now resolved; status post removal of Port-A-Cath with anemia of chronic disease; iron-deficiency anemia; guaiac-positive stools; hyperlipidemia; peptic ulcer disease with gastroesophageal reflux disease; degenerative arthritis and the patient being prepped for colonoscopy for completeness sake. At present, she remains n.p.o., but is continuing bowel prep. She will continue on medication including hydralazine 10 mg p.o. t.i.d., Cardura 4 mg p.o. at bedtime, clonidine 0.1 mg p.o. daily, Feosol 324 mg p.o. daily, Lipitor 10 mg p.o. daily, Lopressor 150 mg p.o. b.i.d., Pepcid 20 mg p.o. at bedtime, Procardia-XL 90 mg p.o. daily, Rocephin 1 g IV every 24, Silvadene to her sacral skin tear daily with a dry sterile dressing, multivitamin 1 tablet daily, Tylenol 650 p.o. every 4 hours p.r.n. pain or temperature greater than 101 and Ultracet 1 tablet p.o. every 12 hours p.r.n. severe pain, Xopenex inhalational therapy 0.63 mg every 6 hours p.r.n. shortness of breath and Zofran 4 mg IV every 6 hours p.r.n. nausea and vomiting. She will be scheduled for a repeat hemoglobin and hematocrit in a.m., basic metabolic panel in a.m. and pending the results of colonoscopy, she will be readied for return to subacute [facility] care and then ultimate discharge to home with followup with Oncology at [facility] for her ongoing treatment of metastatic uterine cancer. All of the above was discussed in detail with the patient, nursing, at bedside. Greater than 35 minutes was spent in the care and management, review of labs, orders, x-rays and outlining of treatment plan for this patient today. All questions were answered. Luisa Pa MD MTDD
[2018-02-14] MEDS ORDERED: Propofol 10 mg/ml Inj (20 ML) ONE (14:54)
[2018-02-14] MEDS ORDERED: Sodium Chloride 0.9% 1,000 ML IV SCH (15:45)
--- NOTE | 2018-02-14 23:55 | PN ---
DATE: 02/14/2018 LOCATION: The patient is seen early this morning in room 569, bed 1. SUBJECTIVE: No fevers, no chills. No nausea, no vomiting. PHYSICAL EXAMINATION VITAL SIGNS: Temperature is 98, blood pressure is 140/50 and respiratory rate of 20. HEENT: Examination of HEENT is unremarkable. NECK: Supple. LUNGS: Have decreased breath sounds. HEART: Normal S1, S2. ABDOMEN: Soft, nontender. LABORATORY DATA: Reveals the patient's white count is 4.9, hemoglobin is 9, BUN of 15, creatinine of 1.4. Review of patient's procalcitonin is 0.26. Urinalysis is noted. Serology is reviewed. Microbiology is reviewed. The patient is scheduled for a colonoscopy today and was diagnosed with hemorrhoid and colitis. ASSESSMENT AND PLAN: This is a 62-year-old female who was admitted with severe sepsis, tmnne-[id number]-ayrcpij renal failure with Escherichia coli in the urine, is the source for sepsis, and stent placement. Today is day #9 of therapy of ceftriaxone, may switch to p.o. ampicillin to complete 10-[address] Pa's note from today is reviewed. The patient is status post colonoscopy. Km Tavera MD
[2018-02-15 07:08] LABS: HEMOGLOBIN 9.6 g/dL (12.0-16.0); MEAN CELL VOLUME 91.6 fl (80.0-105.0); MEAN CORPUSCULAR HEMOGLOBIN 29.9 pg (25.0-35.0); MEAN CORPUSCULAR HGB CONC 32.7 g/dl (31.0-37.0); MEAN PLATELET VOLUME 7.9 fl (7.0-11.0); RBC 3.21 10^6/uL (3.5-6.1); RED CELL DISTRIBUTION WIDTH 16.4 % (11.5-14.5); WHITE BLOOD COUNT 6.3 10^3/ul (4.5-11.0)
[2018-02-15 07:41] LABS: BLOOD UREA NITROGEN 10 mg/dL (7-21); CALCIUM 8.6 mg/dL (8.4-10.5); GFR AFRICAN-AMERICAN > 60; GFR NON-AFRICAN AMERICAN 50
[2018-02-15] MEDS: Silver Sulfadiazine 1% Cream (25 gm) TP SCH (09:59)
[2018-02-15] MEDS: Multivitamin With Minerals Tab PO SCH (10:02)
[2018-02-15] MEDS: NIFEdipine 90 mg ER Tab PO SCH (10:02)
[2018-02-15] MEDS: cefTRIAXone 1 gm 1 GM/100 ML BAG IVPB SCH (10:04)
--- NOTE | 2018-02-15 14:28 | RAD ---
PROCEDURE: Left Ankle Radiographs. HISTORY: left ankle swollen COMPARISON: None FINDINGS: BONES: Plantar and Achilles Tendon insertion calcaneal spurs. JOINTS: Normal. No osteoarthritis. Ankle mortise maintained. Talar dome intact SOFT TISSUES: Circumferential soft tissue swelling about the ankle OTHER FINDINGS: None. IMPRESSION: Soft tissue swelling without acute articular or osseous abnormality.
--- NOTE | 2018-02-15 15:31 | PN ---
DATE: 02/15/2018 SUBJECTIVE: The patient is in bed, in no acute distress, nontoxic, was seen early this morning. PHYSICAL EXAMINATION VITAL SIGNS: Temperature is 99, blood pressure is 150/70, respiratory rate of 20, heart rate of 63. HEENT: Unremarkable. NECK: Supple. LUNGS: Have decreased breath sounds. HEART: Normal S1 and S2. ABDOMEN: Soft, nontender. LABORATORY DATA: Reveals a white count of 6.3, hemoglobin of 9, platelets of 323. Chemistries reveals a BUN of 10, creatinine of 1.1 and urinalysis is noted. Serology is negative. Microbiology reveals E. coli in the urine and a repeat urine culture from 02/12 is no growth. Review of orders reveals the patients is on ceftriaxone. ASSESSMENT AND PLAN: A 62-year-old female admitted with severe sepsis, vczcn-ja-tclslnn renal failure and Escherichia coli in the urinesource with sepsis with stent placement. Today is day #10 of antibiotics and the patient has already received this morning's antibiotics and repeat cultures are no growth. We will discontinue the antibiotics after today's dose, no further antibiotics necessary. Km Tavera MD
--- NOTE | 2018-02-15 17:28 | PN ---
DATE: 02/15/2018 SUBJECTIVE: This 62-year-old female was examined at her bedside. This case was reviewed in detail with herself, her nurse, Sera Walker, registered nurse and Dr. Silvino Jo from GI. The patient completed colonoscopy yesterday that was remarkable for diverticulosis, but no evidence of any diverticulitis or colonic lesions. Today, the patient complains of left ankle pain. She denies any trauma to the left ankle, but noticed that it is acutely swollen. The patient does have a previous history of gouty arthritis as well as degenerative arthritis and was recently hydrated for luxgz-rv-[id number] renal failure stage III in the setting of obstructive uropathy and urinary retention. The patient is out of bed to chair, denying any fever, chills, chest pain or shortness of breath. PHYSICAL EXAMINATION: VITAL SIGNS: Temperature was 99.9, respirations 20, pulse 68 and blood pressure 138/63 with a pulse ox of 96% on room air. HEENT: Head: Normocephalic, atraumatic. Eyes: No icterus. Ears: Clear. Throat: Noninjected. NECK: Supple. HEART: Regular S1, S2. LUNGS: Clear. ABDOMEN: Soft. EXTREMITIES: 1+ edema of both lower extremities from her feet to her pretibial [place] surfaces. There was no open skin noted on her legs. No cellulitis and she has full range of motion of both ankles. VASCULAR: Legs warm to touch. PSYCHOLOGIC: Alert and oriented x3. NEUROLOGIC: Grossly intact. LABORATORY DATA: Sodium 142, K 3.8, chloride 108, bicarb 24, BUN 10, creatinine 1.1, random blood sugar 108, calcium 8.6. White count 6300, hemoglobin 9.6, hematocrit 29.4, platelets 323,000. IMPRESSION: A 62-year-old female now with left ankle discomfort, rule out gout, rule out degenerative arthritis, rule out fracture with comorbidities of recent gastrointestinal bleeding with gastritis and gastroesophageal reflux and hiatal hernia noted on upper endoscopy and diverticulosis on colonoscopy with comorbidities of recent gross hematuria in the setting of Eliquis anticoagulation, now discontinued and history of Escherichia coli urinary tract sepsis, chronic hypertension, obesity, metastatic uterine cancer, anemia of chronic disease, iron-deficiency anemia, hyperlipidemia, chronic obstructive pulmonary disease, stable. PLAN: As discussed with the patient will be to obtain a left ankle x-ray, uric acid level and I have asked her nurse, Sera Walker to administer Lasix 40 mg IV x1 dose. She will continue on medication including Apresoline, Cardura, Catapres, Feosol, Lipitor, Lopressor, Pepcid, Procardia, IV Rocephin, Silvadene to sacral skin tear, multivitamin, Tylenol, Xopenex and p.r.n. Zofran. Her IV fluids ordered post colonoscopy will be discontinued. Based on her x-ray and lab results of today, additional testing and workup will be entertained as needed. Her diet will be advanced. She will continue on physical therapy and if the patient is clinically stable, will be readied for transfer to subacute rehab in the a.m. All of the above was discussed in detail with the patient and nursing at bedside. Greater than 35 minutes was spent in the care management, review of labs, orders and x-rays for this patient. All questions were answered. Luisa Pa MD
[2018-02-16 08:19] VITALS: PULSE 73; RESP 18; TEMP 98.8; O2SAT 95
[2018-02-16] MEDS: Multivitamin With Minerals Tab PO SCH (08:57)
[2018-02-16] MEDS: NIFEdipine 90 mg ER Tab PO SCH (08:59)
[2018-02-16] MEDS: cefTRIAXone 1 gm 1 GM/100 ML BAG IVPB SCH (08:59)
[2018-02-16 16:17] VITALS: BP 99/51
--- NOTE | 2018-02-16 23:24 | PN ---
DATE: 02/16/2018 SUBJECTIVE: Patient is in bed, in no acute distress. Patient was seen early this morning in room 569, bed 1. She is doing well. PHYSICAL EXAMINATION: VITAL SIGNS: Temperature 98, blood pressure is 150/80, respiratory rate 20. HEENT: Unremarkable. NECK: Supple. LUNGS: Have decreased breath sounds. HEART: Normal S1 and S2. ABDOMEN: Soft, nontender. LABORATORY EXAMINATION: Reviewed. ASSESSMENT AND PLAN: This is a 62-year-old female, who was seen earlier this morning in 569, bed 1; awake and alert, doing well, tolerated her procedures well, with severe sepsis, [id number]-[id number] renal failure, and Escherichia coli with urine as the source of sepsis with stent placement. Has completed 10 days of antibiotics and off of antibiotics. Patient is for discharge today. Km Tavera MD
--- NOTE | 2018-02-17 07:44 | DS ---
\ DATE OF EXAM: , 02/16/2018 FINAL DIAGNOSES: Escherichia coli urinary tract infection, resolved; metastatic uterine cancer; chronic obesity; chronic hypertension; anemia of chronic disease; iron-deficiency anemia; hyperlipidemia; gastritis; peptic ulcer disease with gastroesophageal reflux disease; diverticulosis; degenerative arthritis; deconditioning. DISPOSITION: [facility]. Dr. Alex Hudson will monitor the patient [facility]. The patient will follow up with her oncologist at the [facility] on 02/24/2018. DISCHARGE DIET: 2 g sodium, heart-healthy. DISCHARGE MEDICATIONS: Hydralazine 10 mg p.o. t.i.d., Cardura 4 mg p.o. at bedtime, clonidine 0.1 mg p.o. daily, Feosol 324 mg p.o. daily, Lipitor 10 mg p.o. at dinner time, Lopressor 150 mg p.o. b.i.d., Pepcid 20 mg p.o. daily, Procardia XL 90 mg p.o. daily, Silvadene to her sacral skin tear daily with dry sterile dressing until heal, multivitamin 1 tablet daily, Tylenol 650 p.o. every 4 hours p.r.n. pain or temperature greater than 101 with Ultracet 1 tablet p.o. every 12 hours p.r.n. severe pain, Xopenex 0.63 mg inhalational every 6 hours p.r.n. shortness of breath and Zofran 4 mg IV every 6 hours p.r.n. nausea and vomiting. SUMMARY: This is a 62-year-old female was admitted to [facility] with fever, chills and was noted to have E. coli urinary tract infection and urosepsis on laboratory testing and clinical exam. She was treated with parenteral antibiotics successfully under the direction of Dr. Km Tavera from Infectious Disease and a repeat urine culture prior to discharge showed no growth. Blood cultures were negative. The patient's hospital course was complicated by comorbidities as listed above that required medical treatment. At the time of discharge; temperature was 98.8, respirations 18, pulse 73, blood pressure 155/81 with a pulse ox of 96% on room air. Because of guaiac-positive stools, the patient underwent an endoscopy and colonoscopy that were remarkable for peptic ulcer disease with GERD as well as diverticulosis, for which the patient will be treated with chronic Pepcid therapy given her chronic renal failure. Of note, the patient has bilateral ureteral stents and a chronic indwelling St for obstructive hydronephrosis and urinary retention in the setting of metastatic uterine recurrent cancer. The patient was seen by Dr. Jaiden Trinidad from Urology, who advises continuing indwelling St catheter with monthly changes as well as replacement of her ureteral stents at the end of May. The patient's labs at discharge show white count 4900, hemoglobin 9.4, hematocrit 29.3 and platelets 282,000. Sodium 142, K 3.8, chloride 108, bicarb 24, BUN 10, creatinine 1.1, random blood sugar 106. Uric acid level 4.1. Iron 26, TIBC 157, percent saturation 17% low, ferritin 1130 high. B12 of 385 and folic acid 13.9, normal. Procalcitonin level 0.26, low. Hepatitis A, B, C serologies were negative as well as influenza A and B serologies were negative. The patient will continue her physical therapy for reconditioning and gait training at the [facility] and upon completion of her successful course of rehab, will be discharged to home and monitored closely as an outpatient. Greater than 35 minutes was spent in the care management, review of labs, orders, x-rays in preparation of this patient's discharge today. Her case was reviewed with herself, at bedside, and nurse, Sera Walker and Dr. Alex Hudson. Luisa Pa MD MTDD
== END 2018-02-16 15:35 | DRG 872 ==
LOC: ED 03:59 → ERH 06:37 → 2RNO 09:56 → 5RNO 02-12 14:55
PROVIDERS: ADMIT Internal Medicine; ATTEND Internal Medicine
PROC: 30233N1 Transfusion of Nonautologous Red Blood Cells into Peripheral Vein, Percutaneous Approach (ICD-10-PCS; 2018-02-07)
PROC: 0DJ08ZZ Inspection of Upper Intestinal Tract, Via Natural or Artificial Opening Endoscopic (ICD-10-PCS; 2018-02-10)
PROC: 0DJD8ZZ Inspection of Lower Intestinal Tract, Via Natural or Artificial Opening Endoscopic (ICD-10-PCS; principal; 2018-02-14 12:45)
DX: A41.9 Sepsis, unspecified organism (principal); N39.0 Urinary tract infection, site not specified; N18.4 Chronic kidney disease, stage 4 (severe); N17.9 Acute kidney failure, unspecified; Z68.41 Body mass index [BMI] 40.0-44.9, adult; K62.6 Ulcer of anus and rectum; E66.01 Morbid (severe) obesity due to excess calories; E78.5 Hyperlipidemia, unspecified; C55 Malignant neoplasm of uterus, part unspecified; R65.20 Severe sepsis without septic shock; E86.0 Dehydration; B96.20 Unspecified Escherichia coli [E. coli] as the cause of diseases classified elsewhere; I12.9 Hypertensive chronic kidney disease with stage 1 through stage 4 chronic kidney disease, or unspecified chronic kidney disease; K29.70 Gastritis, unspecified, without bleeding; K22.70 Barrett's esophagus without dysplasia; K21.9 Gastro-esophageal reflux disease without esophagitis; J44.9 Chronic obstructive pulmonary disease, unspecified; D63.8 Anemia in other chronic diseases classified elsewhere; K57.30 Diverticulosis of large intestine without perforation or abscess without bleeding; D50.9 Iron deficiency anemia, unspecified; K27.9 Peptic ulcer, site unspecified, unspecified as acute or chronic, without hemorrhage or perforation; K44.9 Diaphragmatic hernia without obstruction or gangrene; Z86.718 Personal history of other venous thrombosis and embolism; Z74.01 Bed confinement status; Z92.3 Personal history of irradiation; Z90.710 Acquired absence of both cervix and uterus

== ENCOUNTER 2018-03-27 22:00 | Inpatient (IN) | payer BC ==
--- NOTE | 2018-03-27 22:19 | ED PDOC ---
Arrival/HPI <Phan Romero - Last Filed: 03/28/18 01:49> - General Historian: Patient, Family <Jose Montalvo - Last Filed: 03/28/18 01:58> - General Time Seen by Provider: 03/27/18 22:09 - History of Present Illness Narrative History of Present Illness (Text): 03/27/18 22:11 62 y/o female, pmh including htn/hld/anemia/uterine cancer/uti with urosepsis, nkda, biba c/o fever and fatigue x 2 days. Pt. has mestatic uterine cancer, under oral chemotherapy, been having fever/fatigue x 2 days at custodial, bed bound and on diaper, history of UTI/Urosepsis, no night sweat, no numbness or tingling, no diarrhea, no recent traveling, no other medical or psychological complaints. (Jose Montalvo) Past Medical History - Provider Review Nursing Documentation Reviewed: Yes - Cardiac Hx Hypertension: Yes - Renal Hx Renal Failure: Yes - Hematological/Oncological Hx Blood Transfusions: Yes Hx Blood Transfusion Reaction: No - Integumentary Hx Dermatological Disorder: Yes Other/Comment: 02-06-18 SACRAL PRESSURE ULCER STAGE 2 measures 1 x 0.5 cm. gluteal cleft with darkened skin discoloration. moist .has a mild serous skin discoloration.Silvadene cream applied at the custodial. healed scarred area to right hip. - Musculoskeletal/Rheumatological Hx Arthritis: Yes (Degenerative Arthritis) - Gastrointestinal Hx Gastrointestinal Disorders: Yes Hx Gall Bladder Disease: Yes (choleycstectomy) - Genitourinary/Gynecological Hx Uterine Cancer: Yes - Psychiatric Hx Depression: No Hx Emotional Abuse: No Hx Physical Abuse: No Hx Substance Use: No - Surgical History Hx Hysterectomy: Yes - Anesthesia Hx Anesthesia Reactions: No Hx Malignant Hyperthermia: No - Suicidal Assessment Feels Threatened In Home Enviroment: No <Jose Montalvo - Last Filed: 03/28/18 01:58> Family/Social History - Physician Review Nursing Documentation Reviewed: Yes Family/Social History: Unknown Family HX Smoking Status: Never Smoked Hx Alcohol Use: No Hx Substance Use: No Hx Substance Use Treatment: No <Jose Montalvo - Last Filed: 03/28/18 01:58> Allergies/Home Meds <Phan Romero - Last Filed: 03/28/18 01:49> <MontalvoJose Live - Last Filed: 03/28/18 01:58> Allergies/Adverse Reactions: Allergies No Known Allergies Allergy (Verified 03/27/18 22:07) Home Medications: Home Meds Medication Instructions Recorded Confirmed Acetaminophen [Tylenol] 650 mg PO PRN PRN 02/06/18 03/27/18 Albuterol HFA [Ventolin HFA 90 2 puff IH [id number] PRN 02/06/18 03/27/18 mcg/actuation (8 g)] Apixaban [Eliquis] 5 mg PO BID 02/06/18 03/27/18 Ascorbic Acid [Vitamin C] 500 mg PO DAILY 02/06/18 03/27/18 Atropine/Diphenoxylate [Lomotil 1 tab PO Q6 PRN 02/06/18 03/27/18 0.025-2.5 mg tablet] Doxazosin [Cardura] 4 mg PO DAILY 02/06/18 03/27/18 Ferrous Sulfate 325 mg PO DAILY 02/06/18 03/27/18 Metoprolol Tartrate [Lopressor] 200 mg PO Q12 02/06/18 03/27/18 Multivitamin [Multi-Vitamin Daily] 1 each PO DAILY 02/06/18 03/27/18 NIFEdipine ER [Procardia XL] 90 mg PO DAILY 02/06/18 03/27/18 Ondansetron [Zuplenz] 4 mg PO Q6 PRN 02/06/18 03/27/18 Ranitidine HCl [Acid Sales Operations Associate] 150 mg PO Q12 02/06/18 03/27/18 Silver Sulfadiazine 1% [Silvadene 1 appl TD DAILY 02/06/18 03/27/18 1%] Simvastatin [Zocor] 20 mg PO DAILY 02/06/18 03/27/18 Zinc Sulfate 220 mg PO DAILY 02/06/18 03/27/18 cloNIDine [Catapres] 0.1 mg PO DAILY 02/06/18 03/27/18 hydrALAZINE [Apresoline] 10 mg PO Q8 02/06/18 03/27/18 Review of Systems - Review of Systems Constitutional: Fatigue, Fevers Eyes: absent: Vision Changes ENT: absent: Hearing Changes Respiratory: absent: SOB, Cough Cardiovascular: absent: Chest Pain Gastrointestinal: absent: Abdominal Pain, Nausea, Vomiting Musculoskeletal: absent: Arthralgias, Back Pain Skin: absent: Rash, Pruritis Neurological: absent: Headache, Dizziness Psychiatric: absent: Anxiety, Depression, Suicidal Ideation <Jose Montalvo Q - Last Filed: 03/28/18 01:58> Physical Exam Vital Signs Reviewed: Yes Temperature: Febrile Pulse: Regular Respiratory Rate: Normal Appearance: Positive for: Well-Appearing, Non-Toxic, Comfortable Pain Distress: None Mental Status: Positive for: Alert and Oriented X 3 - Systems Exam Head: Present: Atraumatic, Normocephalic Pupils: Present: PERRL Extroacular Muscles: Present: EOMI Conjunctiva: Present: Normal Ears: Present: NORMAL TM, Normal Canal. No: Erythema Mouth: Present: Moist Mucous Membranes Pharnyx: Present: Normal. No: ERYTHEMA, EXUDATE, TONSILS ENLARGED Nose (External): Present: Atraumatic. No: Abrasion, Contusion, Laceration Nose (Internal): Present: Normal Inspection, No Active Bleeding. No: Rhinorrhea , Septal Hematoma, Epistaxis Neck: Present: Normal Range of Motion. No: MIDLINE TENDERNESS, Paraspinal Tenderness, Lymphadenopathy, Trachea Midline Respiratory/Chest: Present: Clear to Auscultation, Good Air Exchange. No: Respiratory Distress, Accessory Muscle Use Cardiovascular: Present: Regular Rate and Rhythm, Normal S1, S2. No: Murmurs Abdomen: No: Tenderness, Distention, Peritoneal Signs, Rebound, Guarding Back: Present: Normal Inspection. No: CVA Tenderness, Midline Tenderness, Paraspinal Tenderness Upper Extremity: Present: Normal Inspection. No: Cyanosis, Edema Lower Extremity: Present: Normal Inspection, NORMAL PULSES, Neurovascularly Intact. No: Edema, Tenderness, Swelling, Deformity Neurological: Present: GCS=15, CN II-XII Intact, Speech Normal, Memory Normal Skin: Present: Warm, Dry, Rashes (1st degree debuitus ulcer noted to have aprox. [id number] noted bilateral gluteal regions), Normal Color Psychiatric: Present: Alert, Oriented x 3, Normal Insight, Normal Concentration <Jose Montalvo Q - Last Filed: 03/28/18 01:58> Vital Signs Temp Pulse Resp BP Pulse Ox 03/28/18 01:26 100.1 F H 03/28/18 00:47 75 16 162/65 H 95 03/27/18 23:03 101.8 F H 03/27/18 22:00 102.4 F H 79 16 135/51 L 96 Medical Decision Making <Phan Romero - Last Filed: 03/28/18 01:49> - RAD Interpretation Canvas Cutter: Radiologist - EKG Interpretation Interpreted by ED Physician: Yes Type: 12 lead EKG Comparison: Com.w/previous EKG <Jose Montalvo - Last Filed: 03/28/18 01:58> ED Course and Treatment: 03/27/18 22:21 Differential: Pneumonia vs. UTI vs. Sepsis -labs/ua/uc/blood culture -cxr -ekg -IVF/tylenol 650mg po -Observe and reassess 03/28/18 01:45 -EKG: NSR @ 77 BPM, RBBB, no acute ST or T waves change compared with previous ekgs. -Chest xray: No consolidation. -Labs show no acute findings except bun 25/creatine 1.6 (fluid ordered) -Lactic acid 0.7 -UA show +leukocyte and +nitrite with TNTC wbc, significant for UTI, -Pt. has history of urosepsis, fever/fatigue, under chemotherapy and weak immune system, will need IV antibiotic for close observation as she is bed bound and high risk for urosepsis. Pt. and the family prefer to be admitted to Dr. Pa. -I discussed with Dr. Pa, discussed about the case/labs/radiology result, agreed on the admission to her service. -Dr. Romero awared of the case and agreed on the admission. He will put in the admission. (Jose Montalvo) - Lab Interpretations Lab Results: 03/27/18 22:49 03/27/18 22:49 Lab Results 03/28/18 01:06: Urine Color Yellow, Urine Appearance Cloudy, Urine pH 6.5, Ur Specific [place] 1.010, Urine Protein 30 H, Urine Glucose (UA) Negative, Urine Ketones Negative, Urine Blood Large H, Urine Nitrate Positive H, Urine Bilirubin Negative, Urine Urobilinogen 0.2, Ur Leukocyte Esterase Large H, Urine RBC 2 - 5, Urine WBC Tntc, Ur Epithelial Cells 1 - 3, Urine Bacteria Many 03/27/18 22:49: Sodium 137, Chloride 102, Potassium 4.2, Carbon Dioxide 25, Anion Gap 14, BUN 25 H, Creatinine 1.6 H, Est GFR ( Amer) 39, Est GFR ( Non-Af Amer) 32, Random Glucose 120 H, Calcium 8.8, Magnesium 2.2, Total Bilirubin 0.7, AST 26, ALT 26, Alkaline Phosphatase 53, Total Protein 7.5, Albumin 3.4, Globulin 4.1, Albumin/Globulin Ratio 0.8 L 03/27/18 22:49: pO2 38, VBG pH 7.38, VBG pCO2 44.0, VBG HCO3 26.0, VBG Total CO2 27.4, VBG O2 Sat (Calc) 77.1 H, VBG Base Excess 0.5, VBG Potassium 4.3, Sodium 135.0, Chloride 105.0, Glucose 125 H, Lactate 0.7, FiO2 21.0, Venous Blood Potassium 4.3 03/27/18 22:49: WBC 6.9, RBC 3.25 L, Hgb 9.8 L, Hct 30.6 L, MCV 94.2, MCH 30.2, MCHC 32.0, RDW 15.6 H, Plt Count 285, MPV 8.1, Gran % 75.7 H, Lymph % (Auto) 12.6 L, [place] % (Auto) 11.2 H, Eos % (Auto) 0.4 L, Baso % (Auto) 0.1, Gran # 5.20 , Lymph # (Auto) 0.9 L, [place] # (Auto) 0.8 H, Eos # (Auto) 0.0, Baso # (Auto) 0.01 - RAD Interpretation Radiology Orders: 03/27/18 22:23 CHEST PORTABLE [RAD] Stat FINDINGS: Lungs: Lungs are hyperinflated. No consolidation. Pleural space: Unremarkable. No pneumothorax. Heart: Unremarkable. No cardiomegaly. Mediastinum: Unremarkable. Bones/joints: Spondylosis. IMPRESSION: No consolidation. Thank you for allowing us to participate in the care of your patient. Dictated and Authenticated by: Emma Felix MD 03/27/2018 11:36 PM Eastern Time ([place] & [place]) (Jose Montalvo) - EKG Interpretation EKG Interpretation (Text): 03/27/18 22:30 -EKG: NSR @ 77 BPM, RBBB, no acute ST or T waves change compared with previous ekgs. (Jose Montalvo) - Medication Orders Current Medication Orders: Ceftriaxone Sodium (Rocephin 1 Gram Ivpb) 1 gm in 100 mls @ 200 mls/hr IVPB STAT STA PRN Reason: Protocol Stop: 03/28/18 02:10 Sodium Chloride (Sodium Chloride 0.9%) 1,000 mls @ 100 mls/hr IV .Q10H STA Stop: 03/28/18 11:50 Discontinued Medications Acetaminophen (Tylenol 325mg Tab) 650 mg PO STAT STA Stop: 03/27/18 22:38 Last Admin: 03/27/18 23:03 Dose: 650 mg MAR Pain/Vitals Document 03/27/18 23:03 SS (Rec: 03/27/18 23:04 SS [id number]) Pain Reassessment Is This A Pain ReAssessment? No Sleep Is patient sleeping during reassessment? No Presence of Pain Presence of Pain No Vitals Temperature (97.6 F-99.6 F) 101.8 F Temperature Source Oral Sodium Chloride (Sodium Chloride 0.9%) 1,000 mls @ 999 mls/hr IV .Q1H1M STA Stop: 03/27/18 23:23 Last Admin: 03/27/18 23:04 Dose: 999 mls/hr eMAR Start Stop Document 03/27/18 23:04 SS (Rec: 03/27/18 23:04 SS [id number]) Intravenous Solution Start Date 03/27/18 Start Time 22:50 End Date 03/27/18 End time 23:50 Total Infusion Time 60 - PA / PRISON GUARD / Resident Statement ALTAGRACIA has reviewed & agrees with the documentation as recorded. ALTAGRACIA has examined the patient and agrees with the treatment plan. <Phan Romero - Last Filed: 03/28/18 01:49> - PA / PRISON GUARD / Resident Statement ALTAGRACIA has reviewed & agrees with the documentation as recorded. ALTAGRACIA has examined the patient and agrees with the treatment plan. <Jose Montalvo - Last Filed: 03/28/18 01:58> Disposition/Present on Arrival <Phan Romero - Last Filed: 03/28/18 01:49> - Present on Arrival Any Indicators Present on Arrival: No History of DVT/PE: No History of Uncontrolled Diabetes: No Urinary Catheter: No History of Decub. Ulcer: No History Surgical Site Infection Following: None - Disposition Have Diagnosis and Disposition been Completed?: Yes Disposition Time: 23:18 Patient Plan: Admission <Jose Montalvo - Last Filed: 03/28/18 01:58> - Disposition Diagnosis: Dehydration, UTI (urinary tract infection), Fever, Fatigue Disposition: HOSPITALIZED Patient Problems: Current Active Problems Problem Status Onset Dehydration Acute Fatigue Acute Fever Acute UTI (urinary tract infection) Acute Condition: STABLE
[2018-03-27 22:21] VITALS: BMI 40.5
[2018-03-27] MEDS ORDERED: Sodium Chloride 0.9% 1,000 ML IV STA (22:23)
[2018-03-27 23:00] LABS: VENOUS BLOOD GAS BASE EXCESS 0.5 mmol/L (0.0-2.0); VENOUS BLOOD GAS PO2 38 mm/Hg (30-55); VENOUS BLOOD PH 7.38 (7.32-7.43)
[2018-03-27 23:09] LABS: BASO # 0.01 K/mm3 (0.0-2.0); BASO % 0.1 % (0.0-3.0); EOS % 0.4 % (1.5-5.0); GRAN # 5.2 (1.4-6.5); GRAN % 75.7 % (50.0-68.0); HEMOGLOBIN 9.8 g/dL (12.0-16.0); LYMPH # 0.9 (1.2-3.4); LYMPH % 12.6 % (22.0-35.0); MEAN CELL VOLUME 94.2 fl (80.0-105.0); MEAN CORPUSCULAR HEMOGLOBIN 30.2 pg (25.0-35.0); MEAN PLATELET VOLUME 8.1 fl (7.0-11.0); MONO # 0.8 (0.1-0.6); MONO % 11.2 % (1.0-6.0); RBC 3.25 10^6/uL (3.5-6.1); RED CELL DISTRIBUTION WIDTH 15.6 % (11.5-14.5); WHITE BLOOD COUNT 6.9 10^3/ul (4.5-11.0)
[2018-03-27 23:11] LABS: ALB/GLOB RATIO 0.8 (1.1-1.8); ALBUMIN 3.4 g/dL (3.0-4.8); CALCIUM 8.8 mg/dL (8.4-10.5)
[2018-03-28 01:38] LABS: PH,URINE 6.5 (4.7-8.0); URINE BILIRUBIN NEGATIVE (NEGATIVE); URINE BLOOD LARGE (NEGATIVE); URINE GLUCOSE (UA) NEGATIVE (NEGATIVE); URINE LEUKOCYTE ESTERASE LARGE Leu/uL (NEGATIVE); URINE PROTEIN 30 mg/dL (<30 mg/dL); URINE UROBILINOGEN 0.2 E.U./dL (<1 E.U./dL)
[2018-03-28 01:40] LABS: URINE APPEARANCE CLOUDY (CLEAR); URINE COLOR YELLOW (YELLOW)
[2018-03-28] MEDS ORDERED: cefTRIAXone 1 gm 1 GM/100 ML BAG IVPB STA (01:41)
[2018-03-28 01:44] LABS: URINE WBC TNTC /hpf (0-6)
[2018-03-28 01:45] LABS: URINE BACTERIA MANY (NEG)
[2018-03-28] MEDS ORDERED: Sodium Chloride 0.9% 1,000 ML IV STA (01:51)
[2018-03-28] MEDS ORDERED: ACETAMINOPHEN 650 MG PO PRN (09:00)
[2018-03-28] MEDS ORDERED: Levalbuterol 0.63 MG/3 ML Inhal Soln UD IH PRN (09:09)
--- NOTE | 2018-03-28 09:12 | CARD ---
APPROVED REPORT Date of service: 03/27/2018 EKG Measurement Heart [id number] <Conclusion> Normal sinus rhythm Left axis deviation Right bundle branch block Abnormal ECG
--- NOTE | 2018-03-28 09:20 | RAD ---
Date of service: 03/27/2018 HISTORY: fever COMPARISON: 02/06/2018 FINDINGS: LUNGS: No active pulmonary disease. PLEURA: No significant pleural effusion identified, no pneumothorax apparent. CARDIOVASCULAR: Normal. OSSEOUS STRUCTURES: No significant abnormalities. VISUALIZED UPPER ABDOMEN: Normal. OTHER FINDINGS: None. IMPRESSION: No active disease.
[2018-03-28] MEDS ORDERED: MULTIVITAMIN PO SCH (10:00)
[2018-03-28] MEDS ORDERED: SILVER SULFADIAZINE 1% TD SCH (10:00)
[2018-03-28] MEDS ORDERED: METOPROLOL TARTRATE 150 MG PO SCH (10:00)
[2018-03-28] MEDS ORDERED: APPL TD SCH (10:00)
[2018-03-28] MEDS ORDERED: DOXAZOSIN 4 MG PO SCH (10:00)
[2018-03-28] MEDS ORDERED: ASCORBIC ACID 500 MG PO SCH (10:00)
[2018-03-28] MEDS ORDERED: FERROUS SULFATE 325 MG PO SCH (10:00)
[2018-03-28] MEDS: Multivitamin Therapeutic Tab PO SCH (11:17)
[2018-03-28] MEDS: NIFEdipine 90 mg ER Tab PO SCH (11:17)
[2018-03-28] MEDS: cefTRIAXone 1 gm 1 GM/100 ML BAG IVPB SCH (11:18)
[2018-03-28] MEDS: Silver Sulfadiazine 1% Cream (25 gm) TP SCH (17:20)
--- NOTE | 2018-03-29 05:32 | HP ---
Copied To: Luisa Pa MD Attending MD: Luisa Pa MD DATE OF EXAM: 03/28/2018 HISTORY OF PRESENT ILLNESS: This 62-year-old female was examined at her bedside in the presence of her , Joe and this case was reviewed in detail with Joan Harding, registered nurse. The patient presented to the [facility] ER last evening. I reviewed this case with Dr. Phan Romero from the emergency room. PAST MEDICAL HISTORY: The patient has a past medical history of metastatic uterine cancer and is under the oncological followup of Dr. Umana, oncologist at [facility]. She is weak and deconditioned and is receiving physical therapy daily at the [facility] in [place], [place]. Last evening, she experienced onset of a fever and was sent to ER for evaluation of the above. Apparently, the patient complained of fatigue and worsening fever with chills, which prompted her admission for further evaluation of the above. She does have a history of urinary tract infection and urosepsis in the past and according to the patient, had her St catheter recently removed that had been placed for urinary retention. She does have a history of ureteral stents for obstructive uropathy in the setting of metastatic recurrent uterine cancer and past medical history is also significant for chronic hypertension, hyperlipidemia, now resolved sacral sore, degenerative arthritis, history of [id number] anemia, iron-deficiency anemia and a previous deep vein thrombosis now resolved secondary to a venous access, now resolved. CURRENT MEDICATIONS: Include hydralazine, Cardura, clonidine, Femara, Feosol, Lipitor, Lopressor, Pepcid, Procardia XL, Pyridium, Rocephin, therapeutic multivitamin, vitamin C and Xopenex inhalational therapy. SOCIAL HISTORY: The patient is a nondrinker, nonsmoker, non-IV drug misuser. She is a retired homemaker. ALLERGIES: SHE HAS NO KNOWN ALLERGIES TO MEDICATION. FAMILY HISTORY: Noncontributory. REVIEW OF SYSTEMS: CONSTITUTIONAL REVIEW: She admitted to new onset fever and chills. HEAD REVIEW: No knowledge of headache or seizure. EYE REVIEW: No change in visual acuity. EAR REVIEW: No hearing loss. THROAT REVIEW: No swallowing difficulty. NECK REVIEW: No stiffness. CARDIAC REVIEW: She denies chest pain or palpitation. Has chronic hypertension. PULMONARY: No cough. No hemoptysis. GI: No hematemesis. No melena. No diarrhea. : Has history of urosepsis. VASCULAR: No claudication. PSYCHOLOGICAL: Denies depression. NEUROLOGICAL: Denies knowledge of stroke. ENDOCRINOLOGICAL: Hyperlipidemia but no knowledge of insulin-dependent diabetes mellitus. PHYSICAL EXAMINATION: VITAL SIGNS: Sinus rhythm on the cardiac specialist with temperature 98.5, respirations 20, pulse 67, blood pressure 142/61 with a pulse ox 97% on room air. HEENT: Head is normocephalic, atraumatic. Eyes: No icterus. Ears: Clear. Throat: Noninjected. NECK: Supple. HEART: Regular S1, S2. LUNGS: Clear. ABDOMEN: Obese, nontender. No palpable organomegaly. No rebound, no guarding. No tenderness. EXTREMITIES: No clubbing, no cyanosis, no edema. SKIN: No rash. VASCULAR: Legs warm to touch. PSYCHOLOGICAL: Alert and oriented x3. NEUROLOGIC: Deconditioned. LABORATORY DATA: White count 6900, hemoglobin 9.8, hematocrit 30.6, platelets 285,000. Sodium 137, K 4.2, chloride 102, bicarb 25, BUN 25, creatinine 1.6, random blood sugar 120, magnesium 2.2, calcium 8.8. Bilirubin 0.7, AST 26, ALT 26, alk phos 53. Urinalysis showed many bacteria. Chest x-ray was reviewed, it showed no active pulmonary disease, no effusion, no infiltrate, no obvious congestive heart failure. EKG was reviewed, it showed normal sinus rhythm with nonspecific ST-T wave changes. IMPRESSION: A 62-year-old female with metastatic endometrial cancer, recurrent with comorbidities of history of urosepsis, ureteral stents, urinary tract infection, renal insufficiency, now with chronic renal failure stage III, anemia of chronic disease, iron-deficiency anemia, chronic hypertension, hyperlipidemia, degenerative arthritis, sacral sore resolved. PLAN: As discussed with the patient, nursing, will be to continue hydralazine 25 mg p.o. every 8 hours, Cardura 4 mg p.o. daily, clonidine 0.1 mg p.o. daily, Femara 2.5 mg p.o. daily as directed by her oncologist, Feosol 324 mg p.o. daily, Lipitor 10 mg p.o. at bedtime, Lopressor 150 mg p.o. every 12 hours, Pepcid 20 mg p.o. at bedtime, Procardia XL 90 mg p.o. daily, Pyridium 200 mg p.o. every 12 hours, Rocephin 1 g IV every 24 hours, multivitamin 1 tablet daily, Tylenol 650 p.o. every 6 hours p.r.n. pain or temperature greater than 101, vitamin C 500 mg p.o. daily and Xopenex inhalational therapy 0.63 mg inhalational every 6 hours. The patient will have blood and urine cultures resulted with medication adjusted accordingly. She is scheduled to have a heart-healthy soft bland diet. She is ordered to have physical therapy for reconditioning and gait training and has an order for urinary straight catheterization p.r.n. for any evidence of urine retention. I will order a repeat basic metabolic panel and CBC in the a.m. and based on her clinical progress, additional diagnostic testing and workup will be entertained. All of the above was discussed in detail with the patient, nursing and family. All questions were answered. Greater than 75 minutes was spent in the care management, review of labs, orders, x-rays and discussion of this patient with her present. All questions were answered. Luisa Pa MD MTDD
[2018-03-29 06:19] LABS: HEMOGLOBIN 9.2 g/dL (12.0-16.0); MEAN CELL VOLUME 94.2 fl (80.0-105.0); MEAN CORPUSCULAR HEMOGLOBIN 29.7 pg (25.0-35.0); MEAN CORPUSCULAR HGB CONC 31.5 g/dl (31.0-37.0); MEAN PLATELET VOLUME 8.4 fl (7.0-11.0); RBC 3.1 10^6/uL (3.5-6.1); RED CELL DISTRIBUTION WIDTH 15.3 % (11.5-14.5); WHITE BLOOD COUNT 4.9 10^3/ul (4.5-11.0)
[2018-03-29 06:35] LABS: CALCIUM 8.5 mg/dL (8.4-10.5)
[2018-03-29] MEDS: Silver Sulfadiazine 1% Cream (25 gm) TP SCH (11:01)
[2018-03-29] MEDS: NIFEdipine 90 mg ER Tab PO SCH (11:02)
[2018-03-29] MEDS: Multivitamin Therapeutic Tab PO SCH (11:02)
[2018-03-29] MEDS: cefTRIAXone 1 gm 1 GM/100 ML BAG IVPB SCH (11:05)
[2018-03-30] MEDS: NIFEdipine 90 mg ER Tab PO SCH (09:22)
[2018-03-30] MEDS: Multivitamin Therapeutic Tab PO SCH (09:22)
[2018-03-30] MEDS ORDERED: Meropenem 500 MG in Sodium Chloride 0.9% 50 ML IVPB SCH (10:00)
--- NOTE | 2018-03-30 10:09 | PN ---
Copied To: Luisa Pa MD Attending MD: Luisa Pa MD DATE: 03/29/2018 SUBJECTIVE: This 62-year-old female was seen at her bedside and her sister was present for the interview. I did review this case in detail with Joan Harding, registered nurse. The patient remains in her normal sinus rhythm on the monitor technician. She is deconditioned, still in bed and had a fever of 100.3 earlier this morning. She denied any chills, chest pain or shortness of breath and is in sinus rhythm on monitor technician. OBJECTIVE: VITAL SIGNS: Her pulse is 90, her blood pressure was 150/76, respirations were 20 and pulse ox 93% on room air. HEENT: Head normocephalic, atraumatic. Eyes, no icterus. Ears, clear. Throat, noninjected. NECK: Supple. HEART: S1, S2. No pathological rubs, murmurs or gallops. LUNGS: Clear. ABDOMEN: Obese, nontender without rebound, guarding or tenderness. EXTREMITIES: No edema. SKIN: No rash. VASCULAR: Legs warm to touch. PSYCHOLOGICAL: Alert and oriented x3. NEUROLOGICAL: Consistent with deconditioning. DATA: White count 4900, hemoglobin 9.2, hematocrit 29.2, platelets 242,000. Sodium 137, K 3.9, chloride 105, bicarb 21, BUN 21, creatinine 1.5. Estimated GFR 35 mL per minute. Random blood sugar 149. All liver function testing was normal including bilirubin 0.7, AST 26, ALT 26, alkaline phosphatase 53. Urinalysis showed many bacteria. Blood cultures show no growth at 48 hours and urine culture is pending at present. IMPRESSION: This is a 62-year-old female with probable urosepsis, history of urinary tract infections in the past, history of urine retention, history of bilateral hydronephrosis requiring ureteral stent secondary to recurrent uterine cancer causing obstructive uropathy, comorbidities of obesity, hypertension, iron-deficiency anemia, hyperlipidemia, peptic ulcer disease with gastroesophageal reflux disease, anemia of chronic disease and chronic obstructive pulmonary disease, degenerative arthritis. PLAN: At present is to continue hydralazine, Cardura, clonidine, Femara, Feosol, Lipitor, Lopressor, IV Rocephin pending the results of urine culture. She continues use on Pepcid, Procardia XL, Pyridium, multivitamin, vitamin C and Xopenex inhalational therapy. I have requested the patient to receive physical and occupational therapy for reconditioning and gait training and to be encouraged to be out of bed to chair and ambulated in her room with assistance. The patient is awaiting consultation with Dr. Yadiel Weinberg from Urology regarding scheduling of repeat cystoscopy and possible ureteral stent replacement. She continues on heart-healthy, soft bland diet, fall protocol and has an order for straight catheterization of her urinary bladder, should any evidence of urine retention be noted. Greater than 35 minutes were spent in the care management, review of labs, orders, x-rays, outlining of orders and treatment plan for this patient today and discussion of her case with family, nursing and co-consultants. All questions were answered. Luisa Pa MD
[2018-03-30] MEDS: [UNRECOGNIZED DRUG - OTHER] PO SCH (11:19)
[2018-03-30] MEDS: [UNRECOGNIZED DRUG - OTHER] PO SCH (11:20)
[2018-03-30] MEDS: VIT D3 PO SCH (11:20)
[2018-03-30] MEDS: [UNRECOGNIZED DRUG - OTHER] PO SCH ×2 (11:20→17:14)
[2018-03-30] MEDS: [UNRECOGNIZED DRUG - OTHER] PO SCH (11:20)
[2018-03-30] MEDS: DHA PO SCH ×2 (11:20→17:14)
[2018-03-30] MEDS: [UNRECOGNIZED DRUG - OTHER] PO SCH (11:20)
[2018-03-30] MEDS: METHYL B12 SL SCH ×2 (11:20→17:14)
[2018-03-30] MEDS: Meropenem IV 1 gm in NS 50 ML IVPB SCH ×2 (15:50→21:39)
[2018-03-31] MEDS ORDERED: Iohexol 240 (50 ml) ONE (07:22)
[2018-03-31] MEDS ORDERED: cefTRIAXone (Rocephin) 1 gm Inj ONE (07:31)
[2018-03-31] MEDS ORDERED: Propofol 10 mg/ml Inj (20 ML) ONE (07:40)
[2018-03-31] MEDS ORDERED: Lidocaine PF 2% (5 ml) Inj (For Cardiac Arrhy) ONE (07:41)
--- NOTE | 2018-03-31 08:19 | CON ---
Copied To: Km Tavera MD Attending MD: Km Tavera MD DATE: 03/30/2018 LOCATION: The patient is in bed, in no acute distress. CHIEF COMPLAINT: Fever x2 days' duration. HISTORY OF PRESENT ILLNESS: This is a 62-year-old female with past medical history of hypertension, osteoarthritis, anemia, uterine cancer with metastases, urinary tract infection in the past in January. The patient had E. coli urinary tract infection. The E. coli was pansensitive, was given antibiotics. The patient also with nephrolithiasis, morbid obesity, BMI of 44, recent hospitalization and renal disease. The patient has ureteral stents and also a history of cholecystectomy. Admitted with a fever of 102. Infectious Disease consultation requested. The patient states that she was having frequency. She was having fevers and chills, but no dysuria. No chest pain, shortness of breath or cough. No new back pain. No headaches or blurred vision. REVIEW OF SYSTEMS: Twelve-point review of systems is performed. PAST MEDICAL HISTORY: Significant for hypertension, arthritis, osteoarthritis, anemia, uterine cancer with metastases and E. coli urinary tract infection on 02/06/2018, nephrolithiasis, morbid obesity, BMI of 44 and recent hospitalization, renal disease. PAST SURGICAL HISTORY: Significant for cholecystectomy and status post ureteral stent placement. ALLERGIES: THE PATIENT HAS NO KNOWN ALLERGIES. PHYSICAL EXAMINATION: VITAL SIGNS: On exam, the patient's temperature is 99; T-max is 102.4; blood pressure is 120/80; respiratory rate is 20; heart rate was 58, it was up to 92. HEENT: Examination of HEENT is unremarkable. NECK: Supple. LUNGS: Have decreased breath sounds. HEART: Normal S1, S2. ABDOMEN: Soft, nontender. No organomegaly. No rebound or guarding. There is no CVA tenderness. LABORATORY DATA: Laboratory examination reveals a white count of 6.9, hemoglobin of 9, platelets of 258. Coagulation is noted. Chemistries are noted. BUN of 25, creatinine of 1.6. Urinalysis shows too numerous to count wbc's and many bacteria. Urine culture reveals the Klebsiella ESBL. ASSESSMENT AND PLAN: This is a 62-year-old female with history of uterine cancer, hypertension, osteoarthritis, nephrolithiasis and morbid obesity, body mass index of 44 and renal disease. #1 is sepsis with Klebsiella extended-spectrum beta-lactamase in the urine as the source with must rule out the ureteral stent infection and I will start the patient on meropenem, place the patient on isolation for extended-spectrum beta-lactamase. Urology evaluation. We ordered for possible evaluation of the stents and we will make further recommendations. Km Tavera MD
[2018-03-31] MEDS ORDERED: Iohexol 240 (50 ml) IVP ONE (08:32)
--- NOTE | 2018-03-31 08:54 | PCM.URO ---
Urology Progress Note - Objective Lab Studies: Reviewed (dx:retention, bilateral hydro, [employer] malignancy, uti, gu plans : new stents inserted see op note no castellanos for now antibiotics continue will follow along see dictated notes today number #[id number]) Intake & Output: Intake & Output 03/30/18 03/31/18 03/31/18 18:59 06:59 18:59 Intake Total 750 1370 Output Total 700 Balance 750 670 Intake: IV 200 50 Left Antecubital 200 50 Oral 550 1320 Output: Urine 700 Urine, Voided 700 Other: # Voids Urine, Voided 3 # Bowel Movements 2 Vital Signs: Vital Signs - 24 hr 03/30/18 03/31/18 03/31/18 17:05 06:17 07:00 Temperature 97.9 F 98.1 F Pulse Rate 62 77 77 Respiratory 18 20 Rate Blood Pressure 119/65 157/72 H 136/67 O2 Sat by Pulse 98 98 Oximetry 03/31/18 08:12 Temperature 98.3 F Pulse Rate 75 Respiratory 20 Rate Blood Pressure 152/77 H O2 Sat by Pulse 93 L Oximetry
[2018-03-31] MEDS ORDERED: HYDROmorphone 0.5 mg/0.5 ml ISec IVP PRN (08:56)
[2018-03-31] MEDS ORDERED: Lactated Ringer's 1,000 ML IV SCH (09:00)
[2018-03-31] MEDS: Meropenem IV 1 gm in NS 50 ML IVPB SCH (10:26)
[2018-03-31] MEDS: NIFEdipine 90 mg ER Tab PO SCH (10:27)
[2018-03-31] MEDS: Multivitamin Therapeutic Tab PO SCH (10:27)
[2018-03-31] MEDS: [UNRECOGNIZED DRUG - OTHER] PO SCH (10:28)
[2018-03-31] MEDS: [UNRECOGNIZED DRUG - OTHER] PO SCH (10:28)
[2018-03-31] MEDS: [UNRECOGNIZED DRUG - OTHER] PO SCH (10:28)
[2018-03-31] MEDS: DHA PO SCH ×2 (10:29→17:08)
[2018-03-31] MEDS: [UNRECOGNIZED DRUG - OTHER] PO SCH ×2 (10:29→17:08)
[2018-03-31] MEDS: VIT D3 PO SCH (10:29)
[2018-03-31] MEDS: METHYL B12 SL SCH ×2 (10:29→17:08)
[2018-03-31] MEDS: [UNRECOGNIZED DRUG - OTHER] PO SCH (10:29)
--- NOTE | 2018-03-31 13:27 | PN ---
Copied To: Luisa Pa MD Attending MD: Luisa Pa MD DATE: 03/30/2018 SUBJECTIVE: This 62-year-old female was examined at her bedside. Her , Joe, was present for the interview. I did discuss this case in detail with Dr. Yadiel Weinberg from Urology and Dr. Tavera from Infectious Disease. The patient will be scheduled in the morning for cystoscopy and retrograde pyelogram for replacement of ureteral stents and of note, has a urine culture positive for Klebsiella pneumonia with extended-spectrum beta-lactamase positivity, for which she is sensitive to meropenem. Blood culture showed no growth at this time and the patient remains weak and deconditioned. PHYSICAL EXAMINATION: VITAL SIGNS: She is in a normal sinus rhythm on the laboratory monitor with temperature 98.1, respirations 20, pulse 58, blood pressure 129/58 and pulse ox of 96% on room air. HEENT: Head is normocephalic, atraumatic. Eyes, no icterus. Ears, clear. Throat, noninjected. NECK: Supple. HEART: Regular S1, S2. No pathological rubs, murmurs or gallops. LUNGS: Clear. ABDOMEN: Obese. No rebound, no guarding. No CVA tenderness. EXTREMITIES: No edema. SKIN: Without rash. NEUROLOGICAL: Deconditioned. VASCULAR: Legs warm to touch. PSYCHOLOGICAL: Alert and oriented x3. DATA: White count 4900, hemoglobin 9.2, hematocrit 29.2, platelets 249,000. Sodium 137, potassium 3.9, chloride 105, bicarb 21, BUN 21, creatinine 1.5, random blood sugar 149. IMPRESSION: This is an 82-year-old female with recurrent urinary tract infection in the setting of history of urinary retention, now improved; bilateral hydronephrosis secondary to recurrent metastatic endometrial carcinoma and comorbidities of obesity, anemia of chronic disease, iron-deficiency anemia, hyperlipidemia, chronic hypertension, peptic ulcer disease with gastroesophageal reflux disease, gastroparesis, chronic obstructive pulmonary disease, degenerative arthritis and deconditioning. PLAN: As discussed with the patient, family, nursing and co-consultants will be to continue medications including hydralazine, Cardura, clonidine, Femara, Feosol, IV fluid, lactated Ringer's at 75 mL/hour, Lipitor, Lopressor, IV meropenem 1 g IV every 12 hours, Pepcid, Procardia XL p.r.n., Reglan, multivitamin and Xopenex inhalational therapy. The patient is encouraged to be out of bed to chair with ambulation with assistance. While maintaining fall precautions, a heart-healthy soft bland diet and orders for urinary straight catheterization p.r.n., urinary retention by bladder ultrasonography. Based on the patient's clinical progress, additional diagnostic testing and workup will be entertained. The ultimate plan will be to return this patient to the [facility] for subacute rehab when medically stable. Greater than 35 minutes were spent in the care management, review of labs, orders and x-rays and discussion of this patient with herself, family, nursing and co-consultants from Infectious Disease and Urology. All questions were answered. Luisa Pa MD KEO
--- NOTE | 2018-03-31 13:37 | RAD ---
Date of service: 03/31/2018 PROCEDURE: Retrograde pyelogram HISTORY: BILATERAL HYDRONEPHROSIS COMPARISON: None TECHNIQUE: Standard protocol for this study/examination. FINDINGS: Total fluoroscopic time (continuous mode) utilized during the procedure 17.4 (seconds). Total exam DLP: 6.73 (mGy). IMPRESSION: Less than 1 hr fluoroscopic time utilized during performance of the procedure.
--- NOTE | 2018-03-31 15:47 | CP.PCM.PN ---
Subjective - Date & Time of Evaluation Date of Evaluation: 03/31/18 Time of Evaluation: 11:35 - Subjective Subjective: No fevers, not in distress, had ureteral stents replaced this morning. Objective - Vital Signs/Intake and Output Vital Signs (last 24 hours): Temp Pulse Resp BP Pulse Ox 98.3 F 68 16 144/62 98 03/31/18 09:38 03/31/18 09:38 03/31/18 09:38 03/31/18 09:38 03/31/18 09:38 Intake and Output: 03/31/18 03/31/18 06:59 18:59 Intake Total 1370 75 Output Total 700 Balance 670 75 - Medications Medications: Current Medications Acetaminophen (Tylenol 325mg Tab) 650 mg PO Q6H PRN PRN Reason: Fever >100.4 F Last Admin: 03/29/18 11:03 Dose: 650 mg Ascorbic Acid (Vitamin C 500 Mg Tab) 500 mg PO DAILY [facility] Last Admin: 03/30/18 09:22 Dose: 500 mg Atorvastatin Calcium (Lipitor) 10 mg PO [facility] Last Admin: 03/30/18 21:38 Dose: 10 mg Clonidine HCl (Catapres) 0.1 mg PO DAILY [facility] Last Admin: 03/30/18 11:25 Dose: 0.1 mg Doxazosin Mesylate (Cardura) 4 mg PO DAILY [facility] Last Admin: 03/30/18 09:22 Dose: 4 mg Famotidine (Pepcid) 20 mg PO [facility] Last Admin: 03/30/18 21:37 Dose: 20 mg Ferrous Sulfate (Feosol) 324 mg PO DAILY [facility] Last Admin: 03/30/18 09:22 Dose: 324 mg Home Med (Home Med) 1 unit PO DAILY [facility] Last Admin: 03/30/18 11:20 Dose: Not Given Home Med (Home Med) 1 unit SL BID [facility] Last Admin: 03/30/18 17:14 Dose: Not Given Home Med (Home Med) 1 unit PO DAILY [facility] Last Admin: 03/30/18 11:19 Dose: Not Given Home Med (Home Med) 1 unit PO DAILY [facility] Last Admin: 03/30/18 11:20 Dose: Not Given Home Med (Home Med) 1 unit PO DAILY [facility] Last Admin: 03/30/18 11:20 Dose: Not Given Home Med (Home Med) 1 unit PO DAILY [facility] Last Admin: 03/30/18 11:20 Dose: Not Given Home Med (Home Med) 1 unit PO BID [facility] Last Admin: 03/30/18 17:14 Dose: Not Given Hydralazine HCl (Apresoline) 25 mg PO Q8 [facility] Last Admin: 03/31/18 06:17 Dose: 25 mg Hydromorphone HCl (Dilaudid) 0.5 mg IVP Q15M PRN PRN Reason: Pain, moderate (4-7) Stop: 03/31/18 10:56 Meropenem (Merrem Iv 1 Gm Premix) 50 mls @ 100 mls/hr IVPB Q12 JAMARI PRN Reason: Protocol Stop: 04/06/18 15:13 Last Admin: 03/30/18 21:39 Dose: 100 mls/hr Lactated Ringer's (Lactated Ringer's) 1,000 mls @ 75 mls/hr IV .[id number] [facility] Stop: 03/31/18 11:01 Letrozole (Femara) 2.5 mg PO 0800 [facility] Last Admin: 03/30/18 09:21 Dose: 2.5 mg Levalbuterol HCl (Xopenex) 0.63 mg IH [id number] PRN PRN Reason: Shortness of Breath Metoclopramide HCl (Reglan) 10 mg IV ONCE PRN PRN Reason: Nausea/Vomiting Metoprolol Tartrate (Lopressor) 150 mg PO Q12H [facility] Last Admin: 03/30/18 21:43 Dose: 150 mg Multivitamins (Thera Tab) 1 tab PO DAILY [facility] Last Admin: 03/30/18 09:22 Dose: 1 tab Nifedipine (Procardia Xl) 90 mg PO DAILY [facility] Last Admin: 03/30/18 09:22 Dose: 90 mg Phenazopyridine HCl (Pyridium) 200 mg PO Q12 [facility] Last Admin: 03/30/18 21:38 Dose: 200 mg - Labs Labs: 03/29/18 06:00 03/29/18 06:00 - Constitutional Appears: Chronically Ill - Head Exam Head Exam: NORMAL INSPECTION - ENT Exam ENT Exam: Mucous Membranes Moist - Neck Exam Neck Exam: absent: Lymphadenopathy, Meningismus - Respiratory Exam Respiratory Exam: Decreased Breath Sounds - Cardiovascular Exam Cardiovascular Exam: +S1, +S2 - GI/Abdominal Exam GI & Abdominal Exam: Soft. absent: Tenderness Assessment and Plan - Assessment and Plan (Free Text) Plan: Assessment Severe sepsis with acute on chronic renal failure due to probable pyelonephritis in this patient with history of nephrolithiasis S/P ureteral stent replacement bilaterally and indwelling St catheter, growing ESBL Klebsiella HTN degenerative arthritis history of nephrolithiasis S/P ureteral stent placement uterine cancer morbid obesity with BMI 44 Plan continue Merrem and should complete 10-14 days of therapy - can replace Merrem with Ertapenem once a day will monitor clinically
[2018-03-31 16:43] VITALS: BP 127/68; PULSE 70; RESP 18; TEMP 98.6; O2SAT 94
--- NOTE | 2018-04-01 23:19 | DS ---
DATE OF EXAM: 03/31/2018 Copied To: Luisa Pa MD Attending MD: Luisa Pa MD DISPOSITION: Transitional Care Rehab. DISCHARGE DIAGNOSES: Urosepsis, Klebsiella pneumoniae isolate on urine culture, comorbidities of metastatic endometrial carcinoma with history of bilateral hydronephrosis, chronic internal bilateral ureteral stents, chronic hypertension, morbid obesity, iron-deficiency anemia, anemia of chronic disease, hyperlipidemia, chronic hypertension, peptic ulcer disease with gastroesophageal reflux disease, chronic obstructive pulmonary disease and spinal arthritis. DISCHARGE MEDICATIONS: Cardura 4 mg p.o. at bedtime, clonidine 0.1 mg p.o. daily, Femara 2.5 mg p.o. daily, Feosol 324 mg p.o. t.i.d., Lipitor 10 mg p.o. at bedtime, Lopressor 150 mg p.o. b.i.d., meropenem 1 g IV every 12, Pepcid 40 mg p.o. at bedtime, Procardia XL 90 mg p.o. daily, Pyridium 200 mg p.o. every 12, multivitamin 1 tablet daily, Tylenol 650 p.o. every 6 hours p.r.n. pain or temperature greater than 101, vitamin C 500 mg p.o. daily, Xopenex inhalational therapy every 6 hours p.r.n. SUMMARY: This 62-year-old female was admitted to the [facility] with clinical dehydration, urinary tract infection and fever with microbiology report showing no growth in blood, but Klebsiella pneumoniae with ESBL positivity and resistance to multiple antibiotics, but sensitivity to meropenem. The patient was seen in consultation by Dr. Yadiel Weinberg from Urology, who performed a cystoscopy, retrograde pyelogram and replaced bilateral ureteral stents and the patient was empirically placed on meropenem for Klebsiella pneumoniae eradication. At the time of her transfer to Transitional Care Rehab, temperature was 98.3, respirations 20, pulse 92 and blood pressure 150/76 with pulse ox 94% on room air. White count 4900, hemoglobin 9.2, hematocrit 29.2, platelets 249,000 with sodium 137, K 3.9, chloride 105, bicarb 21, BUN 21, creatinine 1.5, random blood sugar 149. The patient is desirous of physical and occupational rehab with hope to be discharged to home. Hopefully, this can be accomplished with additional time course and rehab while continuing IV antibiotics for eradication of urinary tract infection. Greater than 35 minutes was spent in the care and management, review of labs, orders, x-rays and outlining of care with this patient today. All questions were answered. Luisa Pa MD MTDD
--- NOTE | 2018-04-03 08:11 | OP ---
Copied To: Yadiel Weinberg MD Attending MD: Yadiel Weinberg MD PROCEDURE DATE: 03/31/2018 UROLOGY OPERATIVE NOTE PREOPERATIVE DIAGNOSES: Bilateral hydronephrosis secondary to gynecological malignancy, hematuria, urinary tract infection, incomplete bladder and possible urinary retention. POSTOPERATIVE DIAGNOSES: Bilateral hydronephrosis secondary to gynecological malignancy, hematuria, urinary tract infection, incomplete bladder and possible urinary retention. PROCEDURES: Exam under anesthesia, cystoscopy, removal of left double-J stent, left retrograde pyelogram, insertion of left double-J stent, removal of right double-J stent, right retrograde pyelogram, insertion of right double-J stent. COMPLICATIONS: There were no complications. INDICATIONS: See history and physical, consultation. The patient is a very pleasant 62-year-old lady who has complicated history. She initially was living at [facility] where she had bilateral stents inserted. Again, see the consult notes for further details. And now, we are here for the above. She had a recent CAT scan and we are here to do the above-listed procedure. Regarding previously, she had a St catheter, and in fact, I met the patient a while ago, where we changed the St, now we have been measuring post void residual, which is about 200 to 300 mL. She is here now to change her stent and we are now reinserting St catheter. UROLOGY OPERATIVE FINDINGS: 1. There is orange colored urine (presumably secondary to Pyridium). 2. The amount that we noted when we inserted the cystoscope was probably about 300 mL, it is an approximation. 3. We did not do it as a post void. . At the end of that, flow of urine initially was clear and orange, the end is purulent sort of urine. (See the further findings below). So the bladder mucosa is within normal limits. Ureteral orifice, stents, all that is within normal limits, a bit erythematous. There is tremendous amount of debris floating down the bladder; whether this represents sometimes a possible yeast infection, whether it represents just debris of material that is collecting remains to be determined. The other Urology operative findings, the stents are removed. They are fairly large-bore stones. The stent is removed without difficulty. They are not encrusted, but they definitely . They are in good location. At the end of the procedure, we had then replaced easily with bilateral new stents. The remainder of the procedure was uncomplicated. Blood loss is less than 10 mL. After obtaining informed consent from the patient and discussing options with the daughter and now with the and with Dr. Pa, she is here for the above listed procedure as is listed. The patient was on the table. Routine monitor was placed. Time-out was called to confirm the patient's positioning. The patient is already on meropenem. Antibiotic treatments. Cystoscope via the urethra. What we noted at that time is initially orange urine. I was interested for residual, so I guessed despite collecting in the bucket before putting it to the suction container, about 300 mL give or take. It is rather post void. We noticed orange urine, clear urine and then at the end, it is like a little purulent. Now inspecting the bladder carefully, we can identify the stents. They are removed without difficulty. I worked on the left side first, wire was passed up to the kidney. Left retrograde pyelogram confirmed the positioning. With of note, I did core cleaner films also to get in an adjustment where we are. Of note, there is a significant amount of left hydronephrosis despite presence of what looks like an indwelling stent. We removed it and put a wire up to the kidney, we confirmed about positioning, we put left double-J stent in. We then did the same thing on the right side. So, at the termination of the procedure bilateral stents in place. The bladder was emptied. Cystoscope removed and then, the remainder of the exam is otherwise as listed. We will discuss options with the patient and we will make further plans. Yadiel Weinberg MD
== END 2018-03-31 18:16 | DRG 690 ==
LOC: ED 22:00 → ERH 03-28 01:49 → 3RNO 03-28 03:31
PROVIDERS: ADMIT Internal Medicine; ATTEND Internal Medicine
PROC: 0TP98DZ Removal of Intraluminal Device from Ureter, Via Natural or Artificial Opening Endoscopic (ICD-10-PCS; 2018-03-31)
PROC: 0T788DZ Dilation of Bilateral Ureters with Intraluminal Device, Via Natural or Artificial Opening Endoscopic (ICD-10-PCS; principal; 2018-03-31 07:30)
PROC: BT141ZZ Fluoroscopy of Kidneys, Ureters and Bladder using Low Osmolar Contrast (ICD-10-PCS; 2018-03-31 07:30)
DX: N39.0 Urinary tract infection, site not specified (principal); N17.9 Acute kidney failure, unspecified; Z68.41 Body mass index [BMI] 40.0-44.9, adult; N13.30 Unspecified hydronephrosis; C54.1 Malignant neoplasm of endometrium; B96.1 Klebsiella pneumoniae [K. pneumoniae] as the cause of diseases classified elsewhere; E86.0 Dehydration; I12.9 Hypertensive chronic kidney disease with stage 1 through stage 4 chronic kidney disease, or unspecified chronic kidney disease; N18.3 Chronic kidney disease, stage 3 (moderate); D50.9 Iron deficiency anemia, unspecified; R33.9 Retention of urine, unspecified; R31.9 Hematuria, unspecified; J44.9 Chronic obstructive pulmonary disease, unspecified; D63.8 Anemia in other chronic diseases classified elsewhere; E78.5 Hyperlipidemia, unspecified; E66.01 Morbid (severe) obesity due to excess calories; I45.10 Unspecified right bundle-branch block; K21.9 Gastro-esophageal reflux disease without esophagitis; K27.9 Peptic ulcer, site unspecified, unspecified as acute or chronic, without hemorrhage or perforation; K31.84 Gastroparesis; N13.9 Obstructive and reflux uropathy, unspecified; Z16.12 Extended spectrum beta lactamase (ESBL) resistance; M46.90 Unspecified inflammatory spondylopathy, site unspecified; Z86.718 Personal history of other venous thrombosis and embolism; Z79.01 Long term (current) use of anticoagulants

== ENCOUNTER 2018-03-31 18:16 | Inpatient (IN) | payer BC ==
[2018-03-31 19:40] VITALS: BMI 36.1
[2018-03-31] MEDS ORDERED: Levalbuterol 0.63 MG/3 ML Inhal Soln UD IH PRN (19:40)
[2018-03-31] MEDS ORDERED: Meropenem IV 1 gm in NS 50 ML IVPB SCH (22:00)
[2018-04-01] MEDS: Meropenem IV 1 gm in NS 50 ML IVPB SCH ×2 (05:51→17:35)
[2018-04-01] MEDS: Multivitamin Therapeutic Tab PO SCH (09:59)
[2018-04-01] MEDS: NIFEdipine 90 mg ER Tab PO SCH (10:00)
[2018-04-01] MEDS: [UNRECOGNIZED DRUG - OTHER] PO SCH (10:01)
[2018-04-01] MEDS: [UNRECOGNIZED DRUG - OTHER] PO SCH (10:01)
[2018-04-01] MEDS: [UNRECOGNIZED DRUG - OTHER] PO SCH ×2 (10:02→17:37)
[2018-04-01] MEDS: DHA PO SCH ×2 (10:02→17:37)
[2018-04-01] MEDS: VIT D3 PO SCH (10:02)
[2018-04-01] MEDS: [UNRECOGNIZED DRUG - OTHER] PO SCH (10:02)
[2018-04-01] MEDS: [UNRECOGNIZED DRUG - OTHER] PO SCH (10:03)
[2018-04-01] MEDS: METHYL B12 SL SCH ×2 (10:03→17:38)
--- NOTE | 2018-04-01 15:39 | CON ---
Copied To: Km Tavera MD Attending MD: Km Tavera MD DATE: 04/01/2018 LOCATION: The patient seen in room 302. CHIEF COMPLAINT: Weakness times several days. HISTORY OF PRESENT ILLNESS: This is a 62-year-old female with past medical history significant for hypertension, osteoarthritis, anemia, uterine cancer with metastases, urinary tract infections with E. coli, nephrolithiasis, morbid obesity with a BMI of 44, recent hospitalization, the patient with ureteral stents and renal disease, who is admitted to the acute care and found to have urinary tract infection and replaced ureteral stents yesterday, was started on meropenem, today is day #3 of 10 to 14 days, now transferred to Transitional Care. REVIEW OV SYSTEMS: A 12-point review of systems is performed. She is doing better. No fevers and chills. No nausea or vomiting. Urinary symptoms are improving. PAST MEDICAL HISTORY: Significant for uterine cancer with metastases, hypertension, osteoarthritis, E. coli urinary tract infection, nephrolithiasis, morbid obesity, BMI of 44, and renal disease. PAST SURGICAL HISTORY: Significant for ureteral stents which was changed yesterday, and cholecystectomy. ALLERGIES: THE PATIENT HAS NO KNOWN ALLERGIES. MEDICATIONS AT HOME: Are reviewed include Zocor, multivitamins, metoprolol, Xopenex. PHYSICAL EXAMINATION: GENERAL: On exam, the patient is in bed, in no acute distress. VITAL SIGNS: Temperature of 98, blood pressure is 130/60, respiratory of 18, heart rate of 76. HEENT: Unremarkable. NECK: Supple. LUNGS: Have decreased breath sounds. HEART: Normal S1 and S2. ABDOMEN: Soft, nontender. No organomegaly. No rebound, no guarding, no masses. LABORATORY DATA: Reveals the creatinine is elevated at 1.5, and patient's white count of 4.9, hemoglobin of 9, platelets of 249. ASSESSMENT AND PLAN: This is a 62-year-old female with hypertension, osteoarthritis, anemia, uterine cancer with metastases, urinary tract infection with Escherichia coli, nephrolithiasis, morbid obesity, body mass index of 44, renal disease, admitted with severe sepsis with extended-spectrum beta-lactamase Klebsiella pneumonia, pyelonephritis and with infected ureteral stent, status post replacement. Today is day #3 of meropenem, would complete 10 to 14 days of meropenem. We will follow closely with you. Km Tavera MD [facility] # [id number]
[2018-04-01] MEDS: TraMADol/Apap 37.5/325 mg Tab PO PRN (15:49)
[2018-04-02] MEDS: Meropenem IV 1 gm in NS 50 ML IVPB SCH ×2 (05:12→17:11)
[2018-04-02] MEDS: Multivitamin Therapeutic Tab PO SCH (07:52)
[2018-04-02] MEDS: TraMADol/Apap 37.5/325 mg Tab PO PRN (09:28)
[2018-04-02] MEDS: [UNRECOGNIZED DRUG - OTHER] PO SCH (09:32)
[2018-04-02] MEDS: [UNRECOGNIZED DRUG - OTHER] PO SCH (09:33)
[2018-04-02] MEDS: [UNRECOGNIZED DRUG - OTHER] PO SCH (09:34)
[2018-04-02] MEDS: METHYL B12 SL SCH ×2 (09:34→17:13)
[2018-04-02] MEDS: [UNRECOGNIZED DRUG - OTHER] PO SCH (09:35)
[2018-04-02] MEDS: [UNRECOGNIZED DRUG - OTHER] PO SCH ×2 (09:35→17:12)
[2018-04-02] MEDS: DHA PO SCH ×2 (09:35→17:12)
[2018-04-02] MEDS: NIFEdipine 90 mg ER Tab PO SCH (09:36)
[2018-04-02] MEDS: VIT D3 PO SCH (09:36)
--- NOTE | 2018-04-02 12:48 | PN ---
Copied To: Km Tavera MD Attending MD: Km Tavera MD DATE: 04/02/2018 SUBJECTIVE: The patient is in bed, in no acute distress, nontoxic. PHYSICAL EXAMINATION: VITAL SIGNS: Temperature is 97, blood pressure is 130/60, respiratory of 18. HEENT: Unremarkable. NECKL Supple. LUNGS: Have decreased breath sounds. HEART: Normal S1, S2. ABDOMEN: Soft, nontender. LABORATORY DATA: Laboratory examination is reviewed. Reviewed medications are noted. The patient is on meropenem. ASSESSMENT AND PLAN: This is a 62-year-old female seen earlier today in room 302 with hypertension, osteoarthritis, anemia, uterine cancer with metastases, urinary tract infection with Escherichia coli and nephrolithiasis, morbid obesity with body mass index of 44, renal disease, who is admitted in acute care with severe sepsis with extended-spectrum beta-lactamase Klebsiella pneumonia, pyelonephritis, possible infected ureteral stent, status post stent removal. Today is day #4 of meropenem, would complete 10-14 days of meropenem. We will follow with you. Km Tavera MD
--- NOTE | 2018-04-02 14:35 | PN ---
Copied To: Luisa Pa MD Attending MD: Luisa Pa MD DATE: 04/02/2018 SUBJECTIVE: This 62-year-old female remains hospitalized, receiving parenteral meropenem 1 g IV every 12 hours for Klebsiella pneumoniae urosepsis. This case was reviewed in detail with the patient and her nurse, Nena Ingram, registered nurse. The patient denies any fever, chills, chest pain, or shortness of breath. PHYSICAL EXAMINATION: GENERAL: She was out of bed to chair, with no active complaints. VITAL SIGNS: Temperature 97.9, respirations 18, pulse 69, blood pressure 156/77, and pulse ox 96% room air. HEENT: Head normocephalic, atraumatic. Eyes: No icterus. Ears: Clear. Throat: Noninjected. NECK: Supple. HEART: Regular S1, S2. No pathological rubs, murmurs, or gallops. LUNGS: Clear. ABDOMEN: Obese. No rebound, no guarding. No palpable organomegaly. No CVA tenderness. EXTREMITIES: No clubbing, no cyanosis, no edema. SKIN: Without rash. NEUROLOGICAL: Intact, but deconditioned. VASCULAR: Legs warm to touch. PSYCHOLOGICAL: Alert and oriented x3. IMPRESSION: A 62-year-old female with recurrent metastatic uterine cancer under the direction of Oncology for which she is receiving Femara 2.5 mg p.o. daily, comorbidities of Klebsiella pneumoniae urosepsis, on IV meropenem, chronic hypertension, anemia of chronic disease, iron-deficiency anemia, hyperlipidemia, peptic ulcer disease with gastroesophageal reflux disease, chronic obstructive pulmonary disease, deconditioning. PLAN: To continue Cardura, clonidine, Femara, Feosol, Lipitor, Lopressor, meropenem, Pepcid, Procardia XL, Pyridium, multivitamin, Tylenol, Ultracet p.r.n. severe pain, vitamin C, and Xopenex. The patient is scheduled for reconditioning and gait training. We will ready her for staircase safety when appropriate. She continues on nasal O2 p.r.n. and soft bland diet, high fall risk protocol, and isolation for her urinary infection. She is ordered to have urinary straight catheterization p.r.n. urinary retention should this become a clinical issue and all of the above was discussed for over 35 minutes with the patient and nursing. All questions were answered. Luisa Pa MD KEO
--- NOTE | 2018-04-02 20:45 | HP ---
Copied To: Luisa Pa MD Attending MD: Luisa Pa MD DATE OF EXAM: 04/01/2018 HISTORY OF PRESENT ILLNESS: This 62-year-old female is admitted to transitional care rehab at the [facility] for reconditioning and gait training. She is now receiving IV meropenem for a newly noted Klebsiella pneumoniae urinary tract infection for which she was admitted with fever and chills. The patient has comorbidities of metastatic recurrent uterine carcinoma, obesity, chronic hypertension, anemia of chronic disease, iron-deficiency anemia, hyperlipidemia, peptic ulcer disease with GERD, history of bilateral hydronephrosis with recent replacement of bilateral ureteral stents, history of chronic renal failure stage III, degenerative arthritis, chronic obstructive pulmonary disease. ALLERGIES: NO KNOWN ALLERGIES TO MEDICATION. CURRENT MEDICATIONS: Include Cardura, clonidine, Femara, Feosol, Lipitor, Lopressor, IV meropenem, Pepcid, Procardia XL, Pyridium, therapeutic multivitamin, Tylenol, p.r.n. Ultracet, vitamin C, and Xopenex inhalational therapy. SOCIAL HISTORY: The patient is a nondrinker, nonsmoker, non IV drug misuser. She is a retired homemaker. FAMILY HISTORY: Noncontributory. REVIEW OF SYSTEMS: CONSTITUTIONAL: At present, no fever, no chills. HEAD: No headache or seizure. EYES: No change in visual acuity. EARS: No hearing loss. THROAT: No swallowing difficulty. NECK: No stiffness. CARDIAC: No knowledge of myocardial infarction, no palpitation, chronic hypertension is present. PULMONARY: Chronic obstructive pulmonary disease. No hemoptysis. GI: GERD. : As per HPI, chronic renal failure stage III. HEMATOLOGIC: Anemia of chronic disease and iron-deficiency anemia with negative GI workup in the recent past. [employer]: Recurrent metastatic endometrial carcinoma under the care of Dr. Kathy Coffman, oncologist at the [facility]. MUSCULOSKELETAL: Degenerative arthritis. ENDOCRINOLOGIC: Hyperlipidemia. PHYSICAL EXAMINATION: GENERAL: The patient is out of bed to chair. VITAL SIGNS: Temperature 98.1, respirations 20, pulse 65, and blood pressure 140/70 with a pulse ox of 94% on room air. HEENT: Head: Normocephalic, atraumatic. Eyes: No icterus. Ears: Clear. Throat: Noninjected. NECK: Supple. HEART: Regular, S1 and S2. No pathological rubs, murmurs, or gallops. LUNGS: Clear. ABDOMEN: Obese, nontender. No palpable organomegaly. EXTREMITIES: No clubbing, no cyanosis, no edema. SKIN: Without rash. NEUROLOGIC: Intact, but deconditioned. VASCULAR: Legs warm to touch. PSYCHOLOGIC: Alert and oriented x3. LABORATORY DATA: White count 4900, hemoglobin 9.2, hematocrit 29.2, and platelets 242,000. Sodium 137, K 3.9, chloride 105, bicarb 21. BUN 21, creatinine 1.5. Estimated GFR 35 mL per minute. All liver function testing was normal including bilirubin 0.7, AST 26, ALT 26, alk phos 53. Urine cultures dated 03/28, of reveal Klebsiella pneumoniae sensitive to meropenem. IMPRESSION: A 62-year-old female with Klebsiella pneumoniae urosepsis, chronic renal failure stage III, bilateral hydronephrosis with recent replacement of ureteral stents under the direction of Dr. Yadiel Weinberg from Urology with comorbidities of hypertension, anemia of chronic disease, iron-deficiency anemia, deconditioning, hyperlipidemia, peptic ulcer disease with gastroesophageal reflux disease, degenerative arthritis, and chronic obstructive pulmonary disease. As discussed with the patient and Nursing, the patient will continue on Xopenex, vitamin C, Ultracet p.r.n., Tylenol, multivitamin, Pyridium, Procardia, Pepcid, IV meropenem a full 10-day parenteral course, Lopressor, Lipitor, Femara, clonidine, and Cardura. The patient is anxious for discharge to home as opposed to return to subacute rehab as discussed with her in detail at bedside. If she can accomplish the rehab protocol here in the transitional care unit, she will be readied for discharge to home. She seems encouraged by this discussion and hopefully will be able to achieve this process. Greater than 35 minutes was spent in the care management, review of labs, orders, x-rays, and discussion of this patient with her nurse, Sera Walker, registered nurse. All questions were answered. Luisa Pa MD [facility] # [id number]
[2018-04-03] MEDS: Meropenem IV 1 gm in NS 50 ML IVPB SCH (06:16)
[2018-04-03 06:30] LABS: HEMOGLOBIN 9.9 g/dL (12.0-16.0); MEAN CELL VOLUME 95.8 fl (80.0-105.0); MEAN CORPUSCULAR HEMOGLOBIN 29.6 pg (25.0-35.0); MEAN CORPUSCULAR HGB CONC 30.9 g/dl (31.0-37.0); RBC 3.34 10^6/uL (3.5-6.1); RED CELL DISTRIBUTION WIDTH 15.3 % (11.5-14.5)
[2018-04-03 06:52] LABS: WHITE BLOOD COUNT 6.6 10^3/ul (4.5-11.0)
[2018-04-03] MEDS: Multivitamin Therapeutic Tab PO SCH (08:03)
[2018-04-03] MEDS: TraMADol/Apap 37.5/325 mg Tab PO PRN (08:44)
[2018-04-03] MEDS: [UNRECOGNIZED DRUG - OTHER] PO SCH (11:22)
[2018-04-03] MEDS: [UNRECOGNIZED DRUG - OTHER] PO SCH (11:22)
[2018-04-03] MEDS: [UNRECOGNIZED DRUG - OTHER] PO SCH (11:22)
[2018-04-03] MEDS: [UNRECOGNIZED DRUG - OTHER] PO SCH (11:22)
[2018-04-03] MEDS: [UNRECOGNIZED DRUG - OTHER] PO SCH ×2 (11:22→17:28)
[2018-04-03] MEDS: DHA PO SCH ×2 (11:22→17:28)
[2018-04-03] MEDS: VIT D3 PO SCH (11:23)
[2018-04-03] MEDS: METHYL B12 SL SCH ×2 (11:27→17:28)
[2018-04-03] MEDS: NIFEdipine 90 mg ER Tab PO SCH (11:28)
--- NOTE | 2018-04-03 18:53 | CP.PCM.PN ---
Subjective - Date & Time of Evaluation Date of Evaluation: 04/03/18 Time of Evaluation: 11:50 - Subjective Subjective: Comfortable on a chair, no fevers, not in distress. Objective - Vital Signs/Intake and Output Vital Signs (last 24 hours): Temp Pulse Resp BP Pulse Ox 98.3 F 72 18 143/74 95 04/02/18 10:00 04/02/18 21:27 04/02/18 10:00 04/02/18 21:27 04/02/18 10:00 - Medications Medications: Current Medications Acetaminophen (Tylenol 325mg Tab) 650 mg PO Q6H PRN; Protocol PRN Reason: Fever >100.4 F Last Admin: 04/02/18 05:19 Dose: 650 mg Ascorbic Acid (Vitamin C 500 Mg Tab) 500 mg PO DAILY JAMARI PRN Reason: Protocol Last Admin: 04/02/18 09:36 Dose: 500 mg Atorvastatin Calcium (Lipitor) 10 mg PO HS JAMARI PRN Reason: Protocol Last Admin: 04/02/18 21:27 Dose: 10 mg Clonidine HCl (Catapres) 0.1 mg PO DAILY JAMARI PRN Reason: Protocol Last Admin: 04/02/18 09:31 Dose: 0.1 mg Doxazosin Mesylate (Cardura) 4 mg PO 2200 JAMARI PRN Reason: Protocol Last Admin: 04/02/18 21:27 Dose: 4 mg Famotidine (Pepcid) 40 mg PO HS JAMARI PRN Reason: Protocol Last Admin: 04/02/18 21:27 Dose: 40 mg Ferrous Sulfate (Feosol) 324 mg PO TID JAMARI PRN Reason: Protocol Last Admin: 04/02/18 17:12 Dose: 324 mg Home Med (Home Med) 1 unit PO DAILY JAMARI PRN Reason: Protocol Last Admin: 04/02/18 09:34 Dose: 1 unit Home Med (Home Med) 0 unit PO BID JAMARI PRN Reason: Protocol Last Admin: 04/02/18 17:12 Dose: 1 unit Home Med (Home Med) 1 unit PO DAILY JAMARI PRN Reason: Protocol Last Admin: 04/02/18 09:32 Dose: 1 unit Home Med (Home Med) 1 unit PO DAILY JAMARI PRN Reason: Protocol Last Admin: 04/02/18 09:33 Dose: 1 unit Home Med (Home Med) 1 unit SL BID JAMARI PRN Reason: Protocol Last Admin: 04/02/18 17:13 Dose: 1 unit Home Med (Home Med) 1 unit PO DAILY JAMARI PRN Reason: Protocol Last Admin: 04/02/18 09:36 Dose: 1 unit Home Med (Home Med) 1 unit PO DAILY JAMARI PRN Reason: Protocol Last Admin: 04/02/18 09:35 Dose: 1 unit Letrozole (Femara) 2.5 mg PO 0800 JAMARI PRN Reason: Protocol Last Admin: 04/03/18 08:03 Dose: 2.5 mg Levalbuterol HCl (Xopenex) 0.63 mg IH [id number] PRN; Protocol PRN Reason: Shortness of Breath Metoprolol Tartrate (Lopressor) 150 mg PO 1000,2200 JAMARI PRN Reason: Protocol Last Admin: 04/02/18 21:27 Dose: 150 mg Multivitamins (Thera Tab) 1 tab PO 0800 JAMARI PRN Reason: Protocol Last Admin: 04/03/18 08:03 Dose: 1 tab Nifedipine (Procardia Xl) 90 mg PO DAILY JAMARI PRN Reason: Protocol Last Admin: 04/02/18 09:36 Dose: 90 mg Phenazopyridine HCl (Pyridium) 200 mg PO Q12 JAMARI PRN Reason: Protocol Last Admin: 04/02/18 21:27 Dose: 200 mg Tramadol/Acetaminophen (Ultracet 37.5/325 Mg) 1 tab PO Q8H PRN PRN Reason: Pain, moderate (4-7) Last Admin: 04/03/18 08:44 Dose: 1 tab - Labs Labs: 04/03/18 06:00 04/03/18 06:00 - Constitutional Appears: Chronically Ill - Head Exam Head Exam: NORMAL INSPECTION - Respiratory Exam Respiratory Exam: Decreased Breath Sounds - Cardiovascular Exam Cardiovascular Exam: +S1, +S2 - GI/Abdominal Exam GI & Abdominal Exam: Soft. absent: Tenderness Assessment and Plan - Assessment and Plan (Free Text) Plan: Assessment Severe sepsis with acute on chronic renal failure due to probable pyelonephritis in this patient with history of nephrolithiasis S/P ureteral stent replacement bilaterally and indwelling St catheter, growing ESBL Klebsiella HTN degenerative arthritis history of nephrolithiasis S/P ureteral stent placement uterine cancer morbid obesity with BMI 44 Plan continue Merrem day 5 to complete 10-14 days of therapy follow up further recommendations of Urology will continue to monitor clinically
--- NOTE | 2018-04-03 22:48 | PN ---
Copied To: Luisa Pa MD Attending MD: Luisa Pa MD DATE: 04/03/2018 SUBJECTIVE: This 62-year-old female was examined in the presence of nurse, Nena Ingram and her physical therapist William Rangel. The patient is cooperating with physical therapy and reportedly is becoming more independent and able to ambulate greater than 50 feet with contact guard and rolling walker. She does have a slow silvino with her gait, leaning forward with mild right knee flexion; however, according to physical therapy she is improving daily she was able to walk up the staircase at the rehabilitation laboratory with slow steps and was practiced on transfer from sitting to standing and chair transfers with proper hand and feet placement. PHYSICAL EXAMINATION GENERAL: She denies any fever, chills, chest pain or shortness of breath VITAL SIGNS: Her temperature was 97 with a respiratory rate of 20, pulse 60 and blood pressure 121/69 and pulse ox 97%. HEENT: Head: Normocephalic, atraumatic. Eyes: No icterus. Ears: Clear. Throat: Noninjected. NECK: Supple. HEART: Regular S1, S2. LUNGS: Clear. ABDOMEN: Obese. EXTREMITIES: No edema. SKIN: No rash. VASCULAR: No claudication. PSYCHOLOGICAL: Alert and oriented x3. NEURO: Deconditioned. LABORATORY DATA: White count 6600, hemoglobin 9.9, hematocrit 32.0, platelets 391,000. Sodium 145, K 4.2, chloride 109, bicarb 22, BUN 23, creatinine 1.9, random blood sugar 113. Estimated GFR 27 mL per minute. IMPRESSION: A 62-year-old female receiving IV meropenem for Klebsiella pneumoniae urosepsis with comorbidities of obesity, hypertension, anemia of chronic disease, iron-deficiency anemia, recurrent metastatic uterine cancer, hyperlipidemia, hypertension, chronic renal failure stage III, peptic ulcer disease with gastroesophageal reflux disease, degenerative arthritis and chronic obstructive pulmonary disease. PLAN: The patient will continue Cardura, clonidine, Feosol, Lipitor, Lopressor, IV meropenem for full 10-14 days course, Pepcid, Procardia, peridium, therapeutic multivitamin p.r.n., Tylenol p.r.n., Ultracet, vitamin C and Xopenex. She continues on nasal O2 p.r.n., a soft regular diet, high fall risk protocol, bacterial isolation and has an order for urinary straight catheterization p.r.n. urinary retention. Hopefully this patient will be readied for discharge to home at the end of this hospital stay and all of the above was reviewed for over 35 minutes with herself, physical therapy, nursing and social service. All questions were answered. Luisa Pa MD MTDD
[2018-04-04] MEDS: LETROZOLE 2.5 MG PO SCH (08:19)
[2018-04-04] MEDS: Multivitamin Therapeutic Tab PO SCH (08:19)
[2018-04-04] MEDS: TraMADol/Apap 37.5/325 mg Tab PO PRN (08:27)
[2018-04-04] MEDS: [UNRECOGNIZED DRUG - OTHER] PO SCH (09:43)
[2018-04-04] MEDS: [UNRECOGNIZED DRUG - OTHER] PO SCH (09:44)
[2018-04-04] MEDS: [UNRECOGNIZED DRUG - OTHER] PO SCH (09:45)
[2018-04-04] MEDS: DHA PO SCH ×2 (09:45→17:27)
[2018-04-04] MEDS: [UNRECOGNIZED DRUG - OTHER] PO SCH ×2 (09:45→17:27)
[2018-04-04] MEDS: METHYL B12 SL SCH ×2 (09:45→17:28)
[2018-04-04] MEDS: [UNRECOGNIZED DRUG - OTHER] PO SCH (09:46)
[2018-04-04] MEDS: VIT D3 PO SCH (09:47)
[2018-04-04] MEDS: NIFEdipine 90 mg ER Tab PO SCH (09:52)
--- NOTE | 2018-04-04 14:58 | CP.PCM.PN ---
Subjective - Date & Time of Evaluation Date of Evaluation: 04/04/18 Time of Evaluation: 11:00 - Subjective Subjective: Afebrile, no fevers, not in distress. Objective - Vital Signs/Intake and Output Vital Signs (last 24 hours): Temp Pulse Resp BP Pulse Ox 97 F L 63 20 169/64 H 97 04/03/18 16:00 04/03/18 21:09 04/03/18 16:00 04/03/18 21:09 04/03/18 16:00 - Medications Medications: Current Medications Acetaminophen (Tylenol 325mg Tab) 650 mg PO Q6H PRN; Protocol PRN Reason: Fever >100.4 F Last Admin: 04/03/18 13:29 Dose: 650 mg Ascorbic Acid (Vitamin C 500 Mg Tab) 500 mg PO DAILY JAMARI PRN Reason: Protocol Last Admin: 04/03/18 11:23 Dose: 500 mg Atorvastatin Calcium (Lipitor) 10 mg PO HS JAMARI PRN Reason: Protocol Last Admin: 04/03/18 21:09 Dose: 10 mg Clonidine HCl (Catapres) 0.1 mg PO DAILY JAMARI PRN Reason: Protocol Last Admin: 04/03/18 11:28 Dose: 0.1 mg Doxazosin Mesylate (Cardura) 4 mg PO 2200 JAMARI PRN Reason: Protocol Last Admin: 04/03/18 21:09 Dose: 4 mg Famotidine (Pepcid) 40 mg PO HS JAMARI PRN Reason: Protocol Last Admin: 04/03/18 21:09 Dose: 40 mg Ferrous Sulfate (Feosol) 324 mg PO TID JAMARI PRN Reason: Protocol Last Admin: 04/03/18 17:27 Dose: 324 mg Home Med (Home Med) 1 unit PO DAILY JAMARI PRN Reason: Protocol Last Admin: 04/03/18 11:22 Dose: 1 unit Home Med (Home Med) 0 unit PO BID JAMARI PRN Reason: Protocol Last Admin: 04/03/18 17:28 Dose: 1 unit Home Med (Home Med) 1 unit PO DAILY JAMARI PRN Reason: Protocol Last Admin: 04/03/18 11:22 Dose: 1 unit Home Med (Home Med) 1 unit PO DAILY JAMARI PRN Reason: Protocol Last Admin: 04/03/18 11:22 Dose: 1 unit Home Med (Home Med) 1 unit SL BID JAMARI PRN Reason: Protocol Last Admin: 04/03/18 17:28 Dose: 1 unit Home Med (Home Med) 1 unit PO DAILY JAMARI PRN Reason: Protocol Last Admin: 04/03/18 11:23 Dose: 1 unit Home Med (Home Med) 1 unit PO DAILY JAMARI PRN Reason: Protocol Last Admin: 04/03/18 11:22 Dose: 1 unit Home Med (Home Med) 1 unit PO 0900 JAMARI Meropenem 1,000 mg/ Sodium (Chloride) 50 mls @ 100 mls/hr IVPB 0600,1800 JAMARI PRN Reason: Protocol Stop: 04/07/18 06:29 Last Admin: 04/04/18 06:01 Dose: 100 mls/hr Levalbuterol HCl (Xopenex) 0.63 mg IH [id number] PRN; Protocol PRN Reason: Shortness of Breath Metoprolol Tartrate (Lopressor) 150 mg PO 1000,2200 JAMARI PRN Reason: Protocol Last Admin: 04/03/18 21:09 Dose: 150 mg Multivitamins (Thera Tab) 1 tab PO 0800 JAMARI PRN Reason: Protocol Last Admin: 04/03/18 08:03 Dose: 1 tab Nifedipine (Procardia Xl) 90 mg PO DAILY [facility] PRN Reason: Protocol Last Admin: 04/03/18 11:28 Dose: 90 mg Phenazopyridine HCl (Pyridium) 200 mg PO Q12 JAMARI PRN Reason: Protocol Last Admin: 04/03/18 21:09 Dose: 200 mg Tramadol/Acetaminophen (Ultracet 37.5/325 Mg) 1 tab PO Q8H PRN PRN Reason: Pain, moderate (4-7) Last Admin: 04/03/18 08:44 Dose: 1 tab - Labs Labs: 04/03/18 06:00 04/03/18 06:00 - Constitutional Appears: Chronically Ill - Head Exam Head Exam: NORMAL INSPECTION - Respiratory Exam Respiratory Exam: Decreased Breath Sounds - Cardiovascular Exam Cardiovascular Exam: +S1, +S2 - GI/Abdominal Exam GI & Abdominal Exam: Soft. absent: Tenderness Assessment and Plan - Assessment and Plan (Free Text) Plan: Assessment Severe sepsis with acute on chronic renal failure due to probable pyelonephritis in this patient with history of nephrolithiasis S/P ureteral stent replacement bilaterally and indwelling St catheter, growing ESBL Klebsiella, clinically improving HTN degenerative arthritis history of nephrolithiasis S/P ureteral stent placement uterine cancer morbid obesity with BMI 44 Plan continue Merrem day 6 to complete 10-14 days of therapy follow up further recommendations of Urology will continue to monitor clinically
--- NOTE | 2018-04-05 07:44 | PN ---
Copied To: Luisa Pa MD Attending MD: Luisa Pa MD DATE: 04/04/2018 SUBJECTIVE: This 62-year-old female was examined in the presence of her physical therapist and in the physical therapy exercise unit. The patient is currently receiving parenteral IV meropenem for Klebsiella urinary tract infection as well as urosepsis. She continues to improve daily and is starting to ambulate with minimal assistance and is regaining muscular strength. She denies any fever, chills, chest pain or shortness of breath and on physical exam, was out of bed to wheelchair. She denies any somatic complaints. OBJECTIVE: VITAL SIGNS: Her temperature was 98, respirations 18, pulse 68 and blood pressure 138/78 with a pulse ox of 100% on room air. HEENT: Head: Normocephalic, atraumatic. Eyes: No icterus. Ears: Clear. Throat: Noninjected. NECK: Supple. HEART: Regular S1, S2. No pathological rubs, murmurs or gallops. LUNGS: Clear. ABDOMEN: Obese. No rebound, no guarding. EXTREMITIES: No edema. SKIN: No rash. VASCULAR: Legs warm to touch. PSYCHOLOGICAL: Alert and oriented x3. NEUROLOGICAL: Deconditioned. DATA: White count 6600, hemoglobin 9.9, hematocrit 32, platelets 391,000. Sodium 145, K 4.2, chloride 109, bicarb 22, BUN 23, creatinine 1.9. Estimated GFR 27 mL per minute with a random blood sugar of 113. IMPRESSION: This is a 62-year-old female on IV meropenem for recent Klebsiella urosepsis with comorbidities of chronic renal failure stage III; history of obstructive uropathy with newly replaced bilateral renal stents and history of anemia of chronic disease; metastatic recurrent uterine cancer, under current therapy with Femara directed by Oncology with comorbidities of obesity, hypertension, anemia of chronic disease, iron-deficiency anemia, hyperlipidemia, peptic ulcer disease with gastroesophageal reflux disease, degenerative arthritis and chronic obstructive pulmonary disease. PLAN: Will be to continue aggressive physical therapy to regain motor strength conditioning and ambulation safety. She continues on Cardura, clonidine, Feosol, Lipitor, Femara, Lopressor, IV meropenem, Pepcid, Procardia, Pyridium, multivitamin, Tylenol p.r.n., Ultracet p.r.n. severe pain, vitamin C and Xopenex. As discussed with the patient and at bedside, she will continue with a heart-healthy soft bland diet, nasal O2 p.r.n. She continues on a high fall risk protocol daily. She remains on isolation for her Klebsiella pneumoniae urinary infection and is ordered to have daily occupational as well as physical therapy. The plan is if the patient is stable for discharge to home where she will continue with home PT as I discussed with her visiting nurse brand coordinator and greater than 35 minutes was spent in the care management, review of labs, orders, x-rays and discussion of this patient with herself, , Social Service, Physical Therapy and nursing. All questions were answered. Luisa Pa MD MTDAlex
[2018-04-05] MEDS: Multivitamin Therapeutic Tab PO SCH (08:14)
[2018-04-05] MEDS: LETROZOLE 2.5 MG PO SCH (08:15)
[2018-04-05] MEDS: TraMADol/Apap 37.5/325 mg Tab PO PRN (09:28)
[2018-04-05] MEDS: NIFEdipine 90 mg ER Tab PO SCH (10:06)
[2018-04-05] MEDS: [UNRECOGNIZED DRUG - OTHER] PO SCH (10:07)
[2018-04-05] MEDS: [UNRECOGNIZED DRUG - OTHER] PO SCH (10:08)
[2018-04-05] MEDS: DHA PO SCH ×2 (10:08→17:42)
[2018-04-05] MEDS: [UNRECOGNIZED DRUG - OTHER] PO SCH ×2 (10:08→17:42)
[2018-04-05] MEDS: [UNRECOGNIZED DRUG - OTHER] PO SCH (10:08)
[2018-04-05] MEDS: VIT D3 PO SCH (10:09)
[2018-04-05] MEDS: [UNRECOGNIZED DRUG - OTHER] PO SCH (10:09)
[2018-04-05] MEDS: METHYL B12 SL SCH ×2 (10:09→17:42)
--- NOTE | 2018-04-05 11:49 | CP.PCM.PN ---
Subjective - Date & Time of Evaluation Date of Evaluation: 04/05/18 Time of Evaluation: 10:40 - Subjective Subjective: Will be undergoing physical therapy this morning, no fevers, no nausea, no diarrhea. Objective - Vital Signs/Intake and Output Vital Signs (last 24 hours): Temp Pulse Resp BP Pulse Ox 97.7 F 60 18 145/66 98 04/04/18 16:00 04/04/18 21:52 04/04/18 16:00 04/04/18 21:52 04/04/18 16:00 Intake and Output: 04/05/18 04/05/18 06:59 18:59 Intake Total 540 Balance 540 - Medications Medications: Current Medications Acetaminophen (Tylenol 325mg Tab) 650 mg PO Q6H PRN; Protocol PRN Reason: Fever >100.4 F Last Admin: 04/04/18 15:59 Dose: 650 mg Ascorbic Acid (Vitamin C 500 Mg Tab) 500 mg PO DAILY JAMARI PRN Reason: Protocol Last Admin: 04/04/18 09:48 Dose: 500 mg Atorvastatin Calcium (Lipitor) 10 mg PO HS JAMARI PRN Reason: Protocol Last Admin: 04/04/18 21:49 Dose: 10 mg Clonidine HCl (Catapres) 0.1 mg PO BID JAMARI PRN Reason: Protocol Last Admin: 04/04/18 17:07 Dose: Not Given Doxazosin Mesylate (Cardura) 4 mg PO 2200 JAMRAI PRN Reason: Protocol Last Admin: 04/04/18 21:49 Dose: 4 mg Famotidine (Pepcid) 40 mg PO HS JAMARI PRN Reason: Protocol Last Admin: 04/04/18 21:49 Dose: 40 mg Ferrous Sulfate (Feosol) 324 mg PO TID JAMARI PRN Reason: Protocol Last Admin: 04/04/18 17:27 Dose: 324 mg Home Med (Home Med) 1 unit PO DAILY JAMARI PRN Reason: Protocol Last Admin: 04/04/18 09:45 Dose: 1 unit Home Med (Home Med) 0 unit PO BID JAMARI PRN Reason: Protocol Last Admin: 04/04/18 17:27 Dose: 1 unit Home Med (Home Med) 1 unit PO DAILY JAMARI PRN Reason: Protocol Last Admin: 04/04/18 09:44 Dose: 1 unit Home Med (Home Med) 1 unit PO DAILY JAMARI PRN Reason: Protocol Last Admin: 04/04/18 09:46 Dose: 1 unit Home Med (Home Med) 1 unit SL BID JAMARI PRN Reason: Protocol Last Admin: 04/04/18 17:28 Dose: 1 unit Home Med (Home Med) 1 unit PO DAILY JAMARI PRN Reason: Protocol Last Admin: 04/04/18 09:47 Dose: 1 unit Home Med (Home Med) 1 unit PO DAILY JAMARI PRN Reason: Protocol Last Admin: 04/04/18 09:43 Dose: 1 unit Home Med (Home Med) 1 unit PO 0900 [facility] Last Admin: 04/05/18 08:15 Dose: 1 unit Meropenem 1,000 mg/ Sodium (Chloride) 50 mls @ 100 mls/hr IVPB 0600,1800 JAMARI PRN Reason: Protocol Stop: 04/07/18 06:29 Last Admin: 04/05/18 05:12 Dose: 100 mls/hr Levalbuterol HCl (Xopenex) 0.63 mg IH [id number] PRN; Protocol PRN Reason: Shortness of Breath Metoprolol Tartrate (Lopressor) 150 mg PO 1000,2200 JAMARI PRN Reason: Protocol Last Admin: 04/04/18 21:52 Dose: 150 mg Multivitamins (Thera Tab) 1 tab PO 0800 JAMARI PRN Reason: Protocol Last Admin: 04/05/18 08:14 Dose: 1 tab Nifedipine (Procardia Xl) 90 mg PO DAILY JAMARI PRN Reason: Protocol Last Admin: 04/04/18 09:52 Dose: 90 mg Phenazopyridine HCl (Pyridium) 200 mg PO Q12 JAMARI PRN Reason: Protocol Last Admin: 04/04/18 21:49 Dose: 200 mg Tramadol/Acetaminophen (Ultracet 37.5/325 Mg) 1 tab PO Q8H PRN PRN Reason: Pain, moderate (4-7) Last Admin: 04/04/18 08:27 Dose: 1 tab - Labs Labs: 04/03/18 06:00 04/03/18 06:00 - Constitutional Appears: Non-toxic, Chronically Ill - Head Exam Head Exam: NORMAL INSPECTION - Respiratory Exam Respiratory Exam: Decreased Breath Sounds - Cardiovascular Exam Cardiovascular Exam: +S1, +S2 - GI/Abdominal Exam GI & Abdominal Exam: Soft. absent: Tenderness Assessment and Plan - Assessment and Plan (Free Text) Plan: Assessment Severe sepsis with acute on chronic renal failure due to probable pyelonephritis in this patient with history of nephrolithiasis S/P ureteral stent replacement bilaterally and indwelling St catheter, growing ESBL Klebsiella, clinically improving HTN degenerative arthritis history of nephrolithiasis S/P ureteral stent placement uterine cancer morbid obesity with BMI 44 Plan continue Merrem day 7 to complete 10-14 days of therapy follow up further recommendations of Urology will continue to follow clinically
--- NOTE | 2018-04-05 12:00 | PN ---
Copied To: Luisa Pa MD Attending MD: Luisa Pa MD DATE: 04/05/2018 SUBJECTIVE: This 62-year-old female was examined at her bedside. This case was reviewed in detail with herself, her present for the interview, her nurse, Nena Ingram, and physical therapist, Nilesh Chung. The patient was out of bed to chair. She is getting stronger every day. She is cooperating with physical and occupational therapy and is becoming more independent in ambulation and staircase safety. According to the patient, she was able to navigate seven stairs up and down yesterday in physical therapy without incident. She is desirous of being conditioned to handle 14 so that she will be able to get to her upstairs bedroom once discharged to home. She is denying any fever, chills, chest pain, or shortness of breath and is receiving IV meropenem for Klebsiella pneumoniae urinary tract urosepsis. PHYSICAL EXAMINATION: VITAL SIGNS: Temperature is 97.7, respirations 18, pulse 65, and blood pressure 190/78, previously 145/66 with pulse ox 98% on room air. HEENT: Head: Normocephalic, atraumatic. Eyes: No icterus. Ears: Clear. Throat: Noninjected. NECK: Supple. HEART: Regular S1, S2. LUNGS: Clear. ABDOMEN: Obese. No rebound, no guarding, no tenderness. EXTREMITIES: No edema. SKIN: Without rash. NEUROLOGICAL: Intact, but deconditioned. PSYCHOLOGICAL: Alert and oriented x3. VASCULAR: Legs warm to touch. LABORATORY DATA: White count 6600, hemoglobin 9.9, hematocrit 32, platelets 391,000. Sodium 145, K 4.2, chloride 109, bicarb 22, BUN 23, creatinine 1.9, random blood sugar 113, calcium 9. IMPRESSION: A 62-year-old female with Klebsiella urosepsis, comorbidities of chronic renal failure stage 3, status post obstructive uropathy with bilateral ureteral stents replaced within the past week and history of recurrent metastatic uterine cancer, chronic hypertension, obesity, anemia of chronic disease, iron-deficiency anemia, hyperlipidemia, chronic hypertension, peptic ulcer disease with gastroesophageal reflux disease, deconditioning, chronic obstructive pulmonary disease. PLAN: To continue medication including Cardura, clonidine, Feosol, Lipitor, Lopressor, IV meropenem, Pepcid, Procardia XL, Pyridium, multivitamin, Tylenol and Ultracet p.r.n., vitamin C, and Xopenex inhalational therapy. As discussed with nurse, Nena Ingram, the patient will require IV meropenem through 04/08/2018. I will ask Social Service to ensure that this is authorized through her insurance coverage. She will continue with nasal O2, soft bland diet, isolation protocol, and high-risk fall protocol. She is cooperating with physical and occupational therapy and desirous of discharge to home. Based on her clinical progress, hopefully this can be accomplished and all of the above was discussed with herself, her , nursing, physical therapy, social service, and case management. All questions were answered. Luisa Pa MD MTDAlex
--- NOTE | 2018-04-05 17:55 | PCM.URO ---
Urology Progress Note - Objective Lab Studies: Reviewed (no gu changes) Intake & Output: Intake & Output 04/04/18 04/05/18 04/05/18 18:59 06:59 18:59 Intake Total 300 540 Balance 300 540 Intake: Oral 300 540 Other: # Voids Urine, Voided 2 2 # Bowel Movements 1 Vital Signs: Vital Signs - 24 hr 04/04/18 04/05/18 04/05/18 21:52 10:00 10:05 Temperature 98.7 F Pulse Rate 60 65 65 Respiratory 20 Rate Blood Pressure 145/66 190/78 H 190/78 H O2 Sat by Pulse 98 Oximetry 04/05/18 04/05/18 04/05/18 10:06 16:00 17:41 Temperature 97.8 F Pulse Rate 65 60 60 Respiratory 20 Rate Blood Pressure 190/78 H 164/74 H 164/74 H O2 Sat by Pulse 97 Oximetry
[2018-04-06] MEDS: TraMADol/Apap 37.5/325 mg Tab PO PRN (08:59)
[2018-04-06] MEDS: Multivitamin Therapeutic Tab PO SCH (09:00)
[2018-04-06] MEDS: DHA PO SCH ×2 (09:01→17:56)
[2018-04-06] MEDS: [UNRECOGNIZED DRUG - OTHER] PO SCH ×2 (09:01→17:56)
[2018-04-06] MEDS: [UNRECOGNIZED DRUG - OTHER] PO SCH (09:01)
[2018-04-06] MEDS: [UNRECOGNIZED DRUG - OTHER] PO SCH (09:01)
[2018-04-06] MEDS: [UNRECOGNIZED DRUG - OTHER] PO SCH (09:02)
[2018-04-06] MEDS: METHYL B12 SL SCH ×2 (09:02→17:56)
[2018-04-06] MEDS: VIT D3 PO SCH (09:03)
[2018-04-06] MEDS: LETROZOLE 2.5 MG PO SCH (09:03)
[2018-04-06] MEDS: [UNRECOGNIZED DRUG - OTHER] PO SCH (09:04)
[2018-04-06] MEDS: NIFEdipine 90 mg ER Tab PO SCH (09:05)
--- NOTE | 2018-04-06 13:03 | PN ---
Copied To: Luisa Pa MD Attending MD: Luisa Pa MD DATE: 04/06/2018 SUBJECTIVE: This 62-year-old female was examined in the Physical Therapy Unit attempting to ambulate with her therapist and present. This case was reviewed in detail with her nurse, Denise Retana, registered nurse. The patient denies fever, chills, chest pain or shortness of breath and is receiving IV meropenem daily for Klebsiella pneumoniae urosepsis. VITAL SIGNS: Temperature 97.8, respirations 18, pulse 61 and blood pressure 135/81. Pulse ox 96% room air. Physical exam is stable. DATA: White count 6600, hemoglobin 9.9, hematocrit 32, platelets 391,000. Sodium 145, K 4.2, chloride 109, bicarb 22, BUN 23, creatinine 1.9 and random blood sugar 113 with calcium of 9. IMPRESSION AND PLAN: This is a 62-year-old female with recurrent metastatic uterine cancer, anemia of chronic disease, iron-deficiency anemia, deconditioning, chronic hypertension, obesity, anemia of chronic disease, iron-deficiency anemia, hyperlipidemia, chronic hypertension, chronic renal failure stage III, urosepsis, history of bilateral hydronephrosis with chronic ureteral stent recently changed, degenerative arthritis and chronic obstructive pulmonary disease. The patient will continue on Cardura, clonidine, Feosol, Lipitor, Lopressor, meropenem, Pepcid, Procardia, Pyridium, multivitamin, Tylenol, Ultracet, vitamin C, Xopenex. She is to receive physical and occupational therapy for reconditioning, gait training. She is receiving staircase safety training. She is wearing nasal O2 p.r.n. on a soft bland diet, high fall risk protocol and infection isolation. Ultimate plan will be for discharge to home when completion of IV antibiotics with home PT and medical followup as an outpatient in my office. Greater than 35 minutes were spent in the care management, review of labs, orders, x-rays and discussion of this patient with herself, her , Physical Therapy and Nursing. All questions were answered. Luisa Pa MD [facility] # [id number] MTDD
--- NOTE | 2018-04-06 15:26 | CP.PCM.PN ---
Subjective - Date & Time of Evaluation Date of Evaluation: 04/06/18 Time of Evaluation: 11:15 - Subjective Subjective: Comfortable, no fevers, no flank pain, no nausea, not in distress. Objective - Vital Signs/Intake and Output Vital Signs (last 24 hours): Temp Pulse Resp BP Pulse Ox 97.8 F 71 20 140/75 97 04/05/18 16:00 04/06/18 09:04 04/05/18 16:00 04/06/18 09:04 04/05/18 16:00 - Medications Medications: Current Medications Acetaminophen (Tylenol 325mg Tab) 650 mg PO Q6H PRN; Protocol PRN Reason: Fever >100.4 F Last Admin: 04/05/18 17:44 Dose: 650 mg Ascorbic Acid (Vitamin C 500 Mg Tab) 500 mg PO DAILY JAMARI PRN Reason: Protocol Last Admin: 04/06/18 09:05 Dose: 500 mg Atorvastatin Calcium (Lipitor) 10 mg PO HS JAMARI PRN Reason: Protocol Last Admin: 04/05/18 21:40 Dose: 10 mg Clonidine HCl (Catapres) 0.1 mg PO BID JAMARI PRN Reason: Protocol Last Admin: 04/06/18 09:00 Dose: 0.1 mg Doxazosin Mesylate (Cardura) 4 mg PO 2200 JAMARI PRN Reason: Protocol Last Admin: 04/05/18 21:40 Dose: 4 mg Famotidine (Pepcid) 40 mg PO HS JAMARI PRN Reason: Protocol Last Admin: 04/05/18 21:40 Dose: 40 mg Ferrous Sulfate (Feosol) 324 mg PO TID JAMARI PRN Reason: Protocol Last Admin: 04/06/18 09:00 Dose: 324 mg Home Med (Home Med) 1 unit PO DAILY JAMARI PRN Reason: Protocol Last Admin: 04/06/18 09:04 Dose: 1 unit Home Med (Home Med) 0 unit PO BID JAMARI PRN Reason: Protocol Last Admin: 04/06/18 09:01 Dose: 1 unit Home Med (Home Med) 1 unit PO DAILY JAMARI PRN Reason: Protocol Last Admin: 04/06/18 09:01 Dose: 1 unit Home Med (Home Med) 1 unit PO DAILY JAMARI PRN Reason: Protocol Last Admin: 04/06/18 09:02 Dose: 1 unit Home Med (Home Med) 1 unit SL BID JAMARI PRN Reason: Protocol Last Admin: 04/06/18 09:02 Dose: 1 unit Home Med (Home Med) 1 unit PO DAILY JAMARI PRN Reason: Protocol Last Admin: 04/06/18 09:03 Dose: 1 unit Home Med (Home Med) 1 unit PO DAILY JAMARI PRN Reason: Protocol Last Admin: 04/06/18 09:01 Dose: 1 unit Home Med (Home Med) 1 unit PO 0900 [facility] Last Admin: 04/06/18 09:03 Dose: 1 unit Meropenem 250 mg/ Sodium (Chloride) 100 mls @ 100 mls/hr IVPB Q12H JAMARI PRN Reason: Protocol Stop: 04/12/18 10:01 Levalbuterol HCl (Xopenex) 0.63 mg IH [id number] PRN; Protocol PRN Reason: Shortness of Breath Metoprolol Tartrate (Lopressor) 150 mg PO 1000,2200 JAMARI PRN Reason: Protocol Last Admin: 04/06/18 09:04 Dose: 150 mg Multivitamins (Thera Tab) 1 tab PO 0800 JAMARI PRN Reason: Protocol Last Admin: 04/06/18 09:00 Dose: 1 tab Nifedipine (Procardia Xl) 90 mg PO DAILY JAMARI PRN Reason: Protocol Last Admin: 04/06/18 09:05 Dose: 90 mg Phenazopyridine HCl (Pyridium) 200 mg PO Q12 JAMARI PRN Reason: Protocol Last Admin: 04/06/18 09:05 Dose: 200 mg Tramadol/Acetaminophen (Ultracet 37.5/325 Mg) 1 tab PO Q8H PRN PRN Reason: Pain, moderate (4-7) Last Admin: 04/06/18 08:59 Dose: 1 tab - Labs Labs: 04/03/18 06:00 04/03/18 06:00 - Constitutional Appears: Chronically Ill - Head Exam Head Exam: NORMAL INSPECTION - ENT Exam ENT Exam: Mucous Membranes Moist - Neck Exam Neck Exam: absent: Meningismus - Respiratory Exam Respiratory Exam: Decreased Breath Sounds - Cardiovascular Exam Cardiovascular Exam: +S1, +S2 - GI/Abdominal Exam GI & Abdominal Exam: Soft. absent: Tenderness Assessment and Plan - Assessment and Plan (Free Text) Plan: Assessment Severe sepsis with acute on chronic renal failure due to probable pyelonephritis in this patient with history of nephrolithiasis S/P ureteral stent replacement bilaterally and indwelling St catheter, growing ESBL Klebsiella, clinically improving HTN degenerative arthritis history of nephrolithiasis S/P ureteral stent placement uterine cancer morbid obesity with BMI 44 Plan continue Merrem day 9 to complete 10-14 days of therapy follow up further recommendations of Urology will continue to follow clinically
[2018-04-06 16:12] VITALS: RESP 20
[2018-04-07] MEDS: Multivitamin Therapeutic Tab PO SCH (08:18)
[2018-04-07] MEDS: LETROZOLE 2.5 MG PO SCH (08:19)
[2018-04-07] MEDS: TraMADol/Apap 37.5/325 mg Tab PO PRN (08:26)
[2018-04-07] MEDS: [UNRECOGNIZED DRUG - OTHER] PO SCH (11:39)
[2018-04-07] MEDS: [UNRECOGNIZED DRUG - OTHER] PO SCH (11:39)
[2018-04-07] MEDS: [UNRECOGNIZED DRUG - OTHER] PO SCH (11:40)
[2018-04-07] MEDS: [UNRECOGNIZED DRUG - OTHER] PO SCH ×2 (11:41→18:15)
[2018-04-07] MEDS: DHA PO SCH ×2 (11:41→18:15)
[2018-04-07] MEDS: [UNRECOGNIZED DRUG - OTHER] PO SCH (11:42)
[2018-04-07] MEDS: METHYL B12 SL SCH ×2 (11:42→18:16)
[2018-04-07] MEDS: VIT D3 PO SCH (11:44)
[2018-04-07] MEDS: NIFEdipine 90 mg ER Tab PO SCH (11:46)
[2018-04-07 16:36] VITALS: O2SAT 95
--- NOTE | 2018-04-07 21:55 | CP.PCM.PN ---
Subjective - Date & Time of Evaluation Date of Evaluation: 04/06/18 Time of Evaluation: 12:55 - Subjective Subjective: Comfortable on a chair, no fevers, no flank pain, no nausea, no diarrhea. Objective - Vital Signs/Intake and Output Vital Signs (last 24 hours): Temp Pulse Resp BP Pulse Ox 97.8 F 61 18 135/81 96 04/06/18 10:00 04/06/18 10:00 04/06/18 10:00 04/06/18 10:00 04/06/18 10:00 - Medications Medications: Current Medications Acetaminophen (Tylenol 325mg Tab) 650 mg PO Q6H PRN; Protocol PRN Reason: Fever >100.4 F Last Admin: 04/05/18 17:44 Dose: 650 mg Ascorbic Acid (Vitamin C 500 Mg Tab) 500 mg PO DAILY JAMARI PRN Reason: Protocol Last Admin: 04/06/18 09:05 Dose: 500 mg Atorvastatin Calcium (Lipitor) 10 mg PO HS JAMARI PRN Reason: Protocol Last Admin: 04/05/18 21:40 Dose: 10 mg Clonidine HCl (Catapres) 0.1 mg PO BID JAMARI PRN Reason: Protocol Last Admin: 04/06/18 09:00 Dose: 0.1 mg Doxazosin Mesylate (Cardura) 4 mg PO 2200 JAMARI PRN Reason: Protocol Last Admin: 04/05/18 21:40 Dose: 4 mg Famotidine (Pepcid) 40 mg PO HS JAMARI PRN Reason: Protocol Last Admin: 04/05/18 21:40 Dose: 40 mg Ferrous Sulfate (Feosol) 324 mg PO TID JAMARI PRN Reason: Protocol Last Admin: 04/06/18 14:00 Dose: 324 mg Home Med (Home Med) 1 unit PO DAILY JAMARI PRN Reason: Protocol Last Admin: 04/06/18 09:04 Dose: 1 unit Home Med (Home Med) 0 unit PO BID JAMARI PRN Reason: Protocol Last Admin: 04/06/18 09:01 Dose: 1 unit Home Med (Home Med) 1 unit PO DAILY JAMARI PRN Reason: Protocol Last Admin: 04/06/18 09:01 Dose: 1 unit Home Med (Home Med) 1 unit PO DAILY JAMARI PRN Reason: Protocol Last Admin: 04/06/18 09:02 Dose: 1 unit Home Med (Home Med) 1 unit SL BID JAMARI PRN Reason: Protocol Last Admin: 04/06/18 09:02 Dose: 1 unit Home Med (Home Med) 1 unit PO DAILY JAMARI PRN Reason: Protocol Last Admin: 04/06/18 09:03 Dose: 1 unit Home Med (Home Med) 1 unit PO DAILY JAMARI PRN Reason: Protocol Last Admin: 04/06/18 09:01 Dose: 1 unit Home Med (Home Med) 1 unit PO 0900 [facility] Last Admin: 04/06/18 09:03 Dose: 1 unit Meropenem 250 mg/ Sodium (Chloride) 100 mls @ 100 mls/hr IVPB Q12H JAMARI PRN Reason: Protocol Stop: 04/12/18 10:01 Last Admin: 04/06/18 11:05 Dose: 100 mls/hr Levalbuterol HCl (Xopenex) 0.63 mg IH [id number] PRN; Protocol PRN Reason: Shortness of Breath Metoprolol Tartrate (Lopressor) 150 mg PO 1000,2200 JAMARI PRN Reason: Protocol Last Admin: 04/06/18 09:04 Dose: 150 mg Multivitamins (Thera Tab) 1 tab PO 0800 JAMARI PRN Reason: Protocol Last Admin: 04/06/18 09:00 Dose: 1 tab Nifedipine (Procardia Xl) 90 mg PO DAILY JAMARI PRN Reason: Protocol Last Admin: 04/06/18 09:05 Dose: 90 mg Phenazopyridine HCl (Pyridium) 200 mg PO Q12 JAMARI PRN Reason: Protocol Last Admin: 04/06/18 09:05 Dose: 200 mg Tramadol/Acetaminophen (Ultracet 37.5/325 Mg) 1 tab PO Q8H PRN PRN Reason: Pain, moderate (4-7) Last Admin: 04/06/18 08:59 Dose: 1 tab - Labs Labs: 04/03/18 06:00 04/03/18 06:00 - Constitutional Appears: Non-toxic, Chronically Ill - Head Exam Head Exam: NORMAL INSPECTION - ENT Exam ENT Exam: Mucous Membranes Moist - Respiratory Exam Respiratory Exam: Decreased Breath Sounds. absent: Rales - Cardiovascular Exam Cardiovascular Exam: +S1, +S2 - GI/Abdominal Exam GI & Abdominal Exam: Soft. absent: Tenderness Assessment and Plan - Assessment and Plan (Free Text) Plan: Assessment Severe sepsis with acute on chronic renal failure due to probable pyelonephritis in this patient with history of nephrolithiasis S/P ureteral stent replacement bilaterally and indwelling St catheter, growing ESBL Klebsiella, clinically improving HTN degenerative arthritis history of nephrolithiasis S/P ureteral stent placement uterine cancer morbid obesity with BMI 44 Plan continue Merrem day 10 to complete 10-14 days of therapy follow up further recommendations of Urology will continue to follow clinically
[2018-04-08] MEDS: Multivitamin Therapeutic Tab PO SCH (09:00)
[2018-04-08] MEDS: NIFEdipine 90 mg ER Tab PO SCH (09:11)
[2018-04-08] MEDS: [UNRECOGNIZED DRUG - OTHER] PO SCH (09:12)
[2018-04-08] MEDS: LETROZOLE 2.5 MG PO SCH (09:12)
[2018-04-08] MEDS: [UNRECOGNIZED DRUG - OTHER] PO SCH ×2 (09:13→17:18)
[2018-04-08] MEDS: DHA PO SCH ×2 (09:13→17:18)
[2018-04-08] MEDS: [UNRECOGNIZED DRUG - OTHER] PO SCH (09:14)
[2018-04-08] MEDS: METHYL B12 SL SCH ×2 (09:14→17:18)
[2018-04-08] MEDS: [UNRECOGNIZED DRUG - OTHER] PO SCH (09:15)
[2018-04-08] MEDS: [UNRECOGNIZED DRUG - OTHER] PO SCH (09:15)
[2018-04-08] MEDS: VIT D3 PO SCH (09:16)
[2018-04-08] MEDS: TraMADol/Apap 37.5/325 mg Tab PO PRN (09:19)
--- NOTE | 2018-04-08 13:11 | PN ---
Copied To: Km Tavera MD Attending MD: Km Tavera MD DATE: 04/08/2018 SUBJECTIVE: The patient is in bed, in no acute distress, nontoxic. PHYSICAL EXAMINATION: VITAL SIGNS: On exam, temperature is 98, blood pressure is 160/80, respiratory rate of 18. HEENT: Examination of HEENT is unremarkable. NECK: Supple. LUNGS: Have decreased breath sounds. HEART: Normal S1, S2. ABDOMEN: Soft, nontender. LABORATORY DATA: Laboratory examination reveals a white count of 6, hemoglobin of 9, BUN of 23, creatinine of 1.9. ASSESSMENT AND PLAN: A 62-year-old with severe sepsis with [id number] renal failure due to probable pyelonephritis. This patient with a history of nephrolithiasis, status post ureteral stent placement, bilateral indwelling catheter, growing extended-spectrum beta-lactamase Klebsiella. Today is day #11, would complete 10-14 days of therapy. The patient is scheduled for discharge tomorrow and meropenem is active on the orders. Km Tavera MD
--- NOTE | 2018-04-08 13:35 | PN ---
Copied To: Luisa Pa MD Attending MD: Luisa Pa MD DATE: 04/08/2018 SUBJECTIVE: This patient is completing her final day of IV meropenem for Klebsiella urosepsis. She is ambulating with physical therapy and has been cleared for discharge to home by the physical therapy section. PHYSICAL EXAMINATION: VITAL SIGNS: Her temperature is 98, respirations 20, pulse 62 and blood pressure 120/69. Pulse ox 95% on room air. Physical exam unchanged. IMPRESSION: A 62-year-old female with Klebsiella urosepsis, completing IV meropenem today with comorbidities of obesity, chronic hypertension, anemia of chronic disease, iron-deficiency anemia, hyperlipidemia, peptic ulcer disease with gastroesophageal reflux disease, degenerative arthritis and metastatic recurrent uterine cancer. PLAN: Continue Cardura, clonidine, Feosol, Lipitor, Lopressor, IV meropenem, Pepcid, Procardia, Pyridium, multivitamin, vitamin C and Xopenex. She will complete physical therapy, be ready for discharge to home with outpatient physical therapy to be arranged by Social Service. All of the above was discussed in detail with the patient and nursing. All questions were answered. Luisa Pa MD MTDD
--- NOTE | 2018-04-08 13:56 | PN ---
Copied To: Luisa Pa MD Attending MD: Luisa Pa MD DATE: 04/07/2018 SUBJECTIVE: This 62-year-old female was examined at bedside. Case was reviewed in detail with nurse, Gabriella Moody. The patient is cooperating and receiving IV meropenem for Klebsiella pneumoniae urosepsis and is tolerating physical therapy for reconditioning and gait training. PHYSICAL EXAMINATION: VITAL SIGNS: Temperature 98, respirations 20, pulse 59, blood pressure 121/69, pulse ox 95% on room air. Physical exam unchanged. LABORATORY DATA: White count 6600, hemoglobin 9.9, hematocrit 32, platelets 391,000. Sodium 145, K 4.2, chloride 109, bicarb 22, BUN 23, creatinine 1.9. Estimated GFR 27 mL per minute. Calcium 9, glucose 113. IMPRESSION: A 62-year-old female with anemia of chronic disease, chronic renal failure stage 3, diet-controlled type 2 diabetes mellitus, obesity, chronic hypertension, anemia of chronic disease, iron-deficiency anemia, metastatic recurrent uterine cancer, hyperlipidemia, Klebsiella pneumoniae urinary tract sepsis, peptic ulcer disease with gastroesophageal reflux disease, degenerative arthritis, chronic obstructive pulmonary disease. PLAN: To continue Cardura, clonidine, Feosol, Lipitor, Lopressor, IV meropenem, Pepcid, Procardia, Pyridium, multivitamin, vitamin C, and Xopenex. Physical therapy for reconditioning, gait training, staircase safety and plan will be for discharge to home this 04/09/2018, upon completion of IV antibiotics. All of the above was discussed in detail with the patient at bedside. All questions were answered. Luisa Pa MD [facility]
[2018-04-08 16:12] VITALS: TEMP 97.4
[2018-04-09] MEDS: Multivitamin Therapeutic Tab PO SCH (09:00)
[2018-04-09] MEDS: TraMADol/Apap 37.5/325 mg Tab PO PRN (09:02)
[2018-04-09] MEDS: NIFEdipine 90 mg ER Tab PO SCH (09:02)
[2018-04-09] MEDS: LETROZOLE 2.5 MG PO SCH (09:03)
[2018-04-09] MEDS: METHYL B12 SL SCH (09:04)
[2018-04-09] MEDS: [UNRECOGNIZED DRUG - OTHER] PO SCH (09:04)
[2018-04-09] MEDS: [UNRECOGNIZED DRUG - OTHER] PO SCH (09:04)
[2018-04-09] MEDS: [UNRECOGNIZED DRUG - OTHER] PO SCH (09:04)
[2018-04-09] MEDS: DHA PO SCH (09:04)
[2018-04-09] MEDS: [UNRECOGNIZED DRUG - OTHER] PO SCH (09:05)
[2018-04-09] MEDS: [UNRECOGNIZED DRUG - OTHER] PO SCH (09:06)
[2018-04-09] MEDS: VIT D3 PO SCH (09:07)
[2018-04-09 09:11] VITALS: BP 172/80; PULSE 65
--- NOTE | 2018-04-09 12:40 | PN ---
Copied To: Km Tavera MD Attending MD: Km Tavera MD DATE: 04/09/2018 SUBJECTIVE: The patient is seen earlier this morning. No fevers, no chills. No nausea. PHYSICAL EXAMINATION: VITAL SIGNS: On exam, temperature is 98, blood pressure is 120/70, respiratory rate of 20. HEENT: Examination of HEENT is unremarkable. NECK: Supple. LUNGS: Have decreased breath sounds. HEART: Normal S1, S2. ABDOMEN: Soft, nontender. LABORATORY DATA: Laboratory examination reviewed. ASSESSMENT AND PLAN: A 62-year-old female, who was seen earlier today in room 302 with the patient's at the bedside who is eager to be discharged today with severe sepsis, acute on chronic renal failure and probable pyelonephritis in a patient with a history of nephrolithiasis, ureteral stent placement, bilateral indwelling catheter, an extended-spectrum beta-lactamase Klebsiella, today is day #12. Dr. Pa's note is reviewed. No further antibiotics upon discharge. Km Tavera MD
--- NOTE | 2018-04-10 10:15 | DS ---
Copied To: Luisa Pa MD Attending MD: Luisa Pa MD DATE OF EXAM: 04/10/2018 FINAL DIAGNOSES: Klebsiella pneumoniae; urosepsis, resolved; obesity; hypertension; metastatic recurrent uterine cancer; anemia of chronic disease; iron-deficiency anemia; hyperlipidemia; degenerative arthritis; gastroesophageal reflux disease; chronic obstructive pulmonary disease; deconditioning, improved. DISPOSITION: Home with 24 hours supervision by family. Visiting nurse association and home therapy to be set up. The patient will follow with her oncologist regarding her oncological issues. DISCHARGE MEDICATIONS: Include Feosol 324 mg p.o. daily, Cardura 4 mg daily, Lipitor 10 mg p.o. at bedtime, vitamin C 500 mg p.o. daily; Ventolin 2 puffs inhalational every 6 hours p.r.n. shortness of breath, hydralazine 10 mg p.o. every 8 hours, ranitidine 150 mg p.o. every 12 hours, Lopressor 200 mg p.o. every 12 hours, Xopenex inhalational therapy every 6 hours p.r.n., Femara 2.5 mg p.o. daily, clonidine 0.1 mg p.o. daily, Procardia XL 90 mg p.o. daily. SUMMARY: This 62-year-old female was admitted for reconditioning, gait training, physical therapy and IV antibiotics with meropenem for Klebsiella urosepsis. She was cooperative with physical therapy, nursing staff and at the time of discharge was independent in ambulation with a temperature of 97.4, respirations 18, pulse 65 and blood pressure of 172/80. Laboratory showed white count 6600, hemoglobin 9.9, hematocrit 32, platelets 391,000. Sodium of 145, K 4.2. chloride 109, bicarb 22. BUN 23, creatinine 1.9. Estimated GFR 27 mL per minute, blood sugar 113, calcium 9. The patient is discharged to home, will be monitored as an outpatient. All of the above was reviewed in detail with the patient, Nursing and family. All questions were answered. Luisa Pa MD
== END 2018-04-09 11:52 | disposition home or self-care (01) | DRG 690 ==
LOC: TRCU 18:16
PROVIDERS: ADMIT Internal Medicine; ATTEND Internal Medicine
PROC: F07Z9FZ Gait Training/Functional Ambulation Treatment using Assistive, Adaptive, Supportive or Protective Equipment (ICD-10-PCS; principal; 2018-04-01)
PROC: F08Z4ZZ Home Management Treatment (ICD-10-PCS; 2018-04-01)
DX: N39.0 Urinary tract infection, site not specified (principal); Z68.41 Body mass index [BMI] 40.0-44.9, adult; B96.1 Klebsiella pneumoniae [K. pneumoniae] as the cause of diseases classified elsewhere; Z79.2 Long term (current) use of antibiotics; N18.3 Chronic kidney disease, stage 3 (moderate); I12.9 Hypertensive chronic kidney disease with stage 1 through stage 4 chronic kidney disease, or unspecified chronic kidney disease; C55 Malignant neoplasm of uterus, part unspecified; E11.22 Type 2 diabetes mellitus with diabetic chronic kidney disease; E66.01 Morbid (severe) obesity due to excess calories; D50.9 Iron deficiency anemia, unspecified; D63.8 Anemia in other chronic diseases classified elsewhere; J44.9 Chronic obstructive pulmonary disease, unspecified; K21.9 Gastro-esophageal reflux disease without esophagitis; E78.5 Hyperlipidemia, unspecified; K27.9 Peptic ulcer, site unspecified, unspecified as acute or chronic, without hemorrhage or perforation; M19.90 Unspecified osteoarthritis, unspecified site; Z87.442 Personal history of urinary calculi

== ENCOUNTER 2018-04-20 00:42 | Inpatient (IN) | payer BC ==
[2018-04-20 00:58] VITALS: BMI 39.0
--- NOTE | 2018-04-20 01:34 | ED PDOC ---
Arrival/HPI - General Chief Complaint: Fever Time Seen by Provider: 04/20/18 01:08 Historian: Patient, Family - History of Present Illness Narrative History of Present Illness (Text): 04/20/18 01:34 Smiley Caldera is a 62 year old female, whose past medical history includes metastatic recurrent uterine carcinoma on oral chemotherapy, chronic hypertension, anemia, hyperlipidemia, pepcid ulcer disease, GERD, bilateral hydronephrosis with bilateral ureteral stents, chronic stage III renal failure, degenerative arthritis, and COPD, who presents to the emergency department brought in by family complaining of fever. Daughter states patient has been experiencing intermittent low-grade fevers since yesterday, max temperature of 100.8. Per the patient's daughter, the patient is at baseline mental status and denies any other complaints. She notes patient was recently discharged from the hospital on 04/10/2018 following treatment of urosepsis and Klebsiella PNA. Patient denies any nausea, vomiting, chest pain, shortness of breath, abdominal pain, nausea, vomiting, or any other complaints. PMD: Dr. Pa Oncologist: Dr. Kadeem Umana Urologist: Dr. Georgia Weinberg 04/20/18 05:42 Symptom Onset: Gradual Symptom Course: Unchanged Activities at Onset: Light Context: Home Past Medical History - Provider Review Nursing Documentation Reviewed: Yes - Cardiac Hx Hypertension: Yes - Renal Hx Renal Failure: Yes - Hematological/Oncological Hx Blood Transfusions: Yes Hx Blood Transfusion Reaction: No - Integumentary Hx Dermatological Disorder: Yes Other/Comment: 02-06-18 SACRAL PRESSURE ULCER STAGE 2 measures 1 x 0.5 cm. gluteal cleft with darkened skin discoloration. moist .has a mild serous skin discoloration.Silvadene cream applied at the long-term. healed scarred area to right hip. - Musculoskeletal/Rheumatological Hx Falls: Yes - Gastrointestinal Hx Gastrointestinal Disorders: Yes - Genitourinary/Gynecological Hx Genitourinary Disorders: Yes (c section x1) Hx Uterine Cancer: Yes (mets to liver) Hx Urinary Tract Infection: Yes Other/Comment: Hx sepsis - Psychiatric Hx Depression: No Hx Emotional Abuse: No Hx Physical Abuse: No Hx Substance Use: No - Surgical History Other/Comment: kidney stent - Anesthesia Hx Anesthesia: Yes Hx Anesthesia Reactions: No Hx Malignant Hyperthermia: No - Suicidal Assessment Feels Threatened In Home Enviroment: No Family/Social History - Physician Review Nursing Documentation Reviewed: Yes Family/Social History: Unknown Family HX Smoking Status: Never Smoked Hx Alcohol Use: No Hx Substance Use: No Hx Substance Use Treatment: No Allergies/Home Meds Allergies/Adverse Reactions: Allergies No Known Allergies Allergy (Verified 04/05/18 06:13) Home Medications: Home Meds Medication Instructions Recorded Confirmed Acetaminophen [Tylenol] 650 mg PO PRN PRN 02/06/18 04/20/18 Albuterol HFA [Ventolin HFA 90 2 puff IH [id number] PRN 02/06/18 04/20/18 mcg/actuation (8 g)] Ascorbic Acid [Vitamin C] 500 mg PO DAILY 02/06/18 04/20/18 Doxazosin [Cardura] 4 mg PO DAILY 02/06/18 04/20/18 Metoprolol Tartrate [Lopressor] 200 mg PO Q12 02/06/18 04/20/18 Ranitidine HCl [Acid Erp Consultant] 150 mg PO Q12 02/06/18 04/20/18 Silver Sulfadiazine 1% [Silvadene 1 appl TD DAILY 02/06/18 04/20/18 1%] Simvastatin [Zocor] 20 mg PO DAILY 02/06/18 04/20/18 Review of Systems - Physician Review All systems were reviewed & negative as marked: Yes - Review of Systems Constitutional: Fevers Eyes: Normal ENT: Normal Respiratory: Normal. absent: SOB, Cough Cardiovascular: Normal. absent: Chest Pain Gastrointestinal: Normal. absent: Abdominal Pain, Diarrhea, Nausea, Vomiting Genitourinary Female: Normal. absent: Dysuria, Frequency, Hematuria, Urine Output Changes Musculoskeletal: Normal. absent: Back Pain, Neck Pain Skin: Normal. absent: Rash Neurological: Normal. absent: Headache, Dizziness Endocrine: Normal Hemo/Lymphatic: Normal Psychiatric: Normal Physical Exam Vital Signs Reviewed: Yes Vital Signs Temp Pulse Resp BP Pulse Ox 04/20/18 05:17 98.7 F 55 L 18 112/68 100 04/20/18 03:42 100.2 F H 04/20/18 03:28 100.2 F H 04/20/18 02:28 100.9 F H 04/20/18 01:52 100.9 F H 04/20/18 00:56 98.6 F 60 18 132/67 98 Temperature: Afebrile Blood Pressure: Normal Pulse: Regular Respiratory Rate: Normal Appearance: Positive for: Well-Appearing, Non-Toxic, Comfortable, Other ( Pleasant elderly female) Pain Distress: None Mental Status: Positive for: Alert and Oriented X 3 - Systems Exam Head: Present: Atraumatic, Normocephalic Pupils: Present: PERRL Extroacular Muscles: Present: EOMI Conjunctiva: Present: Normal Mouth: Present: Moist Mucous Membranes Neck: Present: Normal Range of Motion Respiratory/Chest: Present: Clear to Auscultation, Good Air Exchange. No: Respiratory Distress, Accessory Muscle Use Cardiovascular: Present: Regular Rate and Rhythm, Normal S1, S2. No: Murmurs Abdomen: No: Tenderness, Distention, Peritoneal Signs Back: Present: Normal Inspection Upper Extremity: Present: Normal Inspection. No: Cyanosis, Edema Lower Extremity: Present: Normal Inspection. No: Edema Neurological: Present: GCS=15, CN II-XII Intact, Speech Normal Skin: Present: Warm, Dry, Normal Color. No: Rashes Psychiatric: Present: Alert, Oriented x 3, Normal Insight, Normal Concentration Medical Decision Making ED Course and Treatment: 04/20/18 01:34 Impression: 62 year old female brought in for fever tonight. Differential Diagnosis included but are not limited to: neutropenic fever vs. sepsis vs. pneumonia vs. UTI Plan: -- Labs, VBG -- UA -- CXR -- Reassess and disposition Prior Visits: Notes and results from previous visits were reviewed. Progress Notes: CXR reviewed, shows: patchy infiltrate near left lower lobe, pulmonary congestion, no cardiomegaly. 04/20/18 03:56 UA positive for many bacteria & leukocyte esterase most consistent with UTI. Patient informed of results and denies any symptoms at this time. Case discussed with Dr. Pa regarding patient's clinical status, who is aware and agrees with plan. Accepts patient onto her service. Requests Dr. Lloyd(infectious disease) on consult. Of note, the patient was recently hospitalized with +klebsiella pneumonia during last admission to the hospital, sensitive to Meropenem, and would like the pt started on that medication to be initiated in the emergency department. - Lab Interpretations Lab Results: 04/20/18 02:00 04/20/18 02:00 Lab Results 04/20/18 02:00: Sodium 142, Chloride 108 H, Potassium 4.2, Carbon Dioxide 23, Anion Gap 16, BUN 26 H, Creatinine 2.1 H, Est GFR ( Amer) 29, Est GFR ( Non-Af Amer) 24, Random Glucose 138 H, Calcium 10.8 H, Phosphorus 5.1 H, Magnesium 2.3 H, Total Bilirubin 0.3, AST 30, ALT 16, Alkaline Phosphatase 56, Total Protein 7.2, Albumin 3.3, Globulin 3.9, Albumin/Globulin Ratio 0.9 L 04/20/18 02:00: pO2 30, VBG pH 7.38, VBG pCO2 40.0, VBG HCO3 23.7, VBG Total CO2 24.9, VBG O2 Sat (Calc) 54.0, VBG Base Excess -1.3 L, VBG Potassium 4.1, Sodium 139.0, Chloride 109.0 H, Glucose 143 H, Lactate 1.1, FiO2 21.0, Venous Blood Potassium 4.1 04/20/18 02:00: Urine Color Yellow, Urine Appearance Cloudy, Urine pH 6.5, Ur Specific [place] 1.020, Urine Protein 100 H, Urine Glucose (UA) Negative, Urine Ketones Negative, Urine Blood Large H, Urine Nitrate Positive H, Urine Bilirubin Negative, Urine Urobilinogen 0.2, Ur Leukocyte Esterase Large H, Urine RBC 1 - 3, Urine WBC Tntc, Ur Epithelial Cells 0 - 2, Urine Bacteria Small 04/20/18 02:00: PT 13.0 H, INR 1.14, APTT 28.2 04/20/18 02:00: WBC 4.9 D, RBC 2.90 L, Hgb 8.9 L, Hct 27.5 L, MCV 94.8, MCH 30.7, MCHC 32.4, RDW 15.7 H, Plt Count 269, MPV 8.5, Gran % 62.8, Lymph % (Auto ) 21.8 L, [place] % (Auto) 10.3 H, Eos % (Auto) 4.9, Baso % (Auto) 0.2, Gran # 3.05 , Lymph # (Auto) 1.1 L, [place] # (Auto) 0.5, Eos # (Auto) 0.2, Baso # (Auto) 0.01 I have reviewed the lab results: Yes - RAD Interpretation Radiology Orders: 04/20/18 01:41 CHEST PORTABLE [RAD] Stat Local Announcer: ED Physician - Medication Orders Current Medication Orders: Discontinued Medications Acetaminophen (Tylenol 325mg Tab) 650 mg PO STAT STA Stop: 04/20/18 01:53 Last Admin: 04/20/18 02:28 Dose: 650 mg MAR Pain/Vitals Document 04/20/18 02:28 AD (Rec: 04/20/18 02:30 AD [id number]) Pain Reassessment Is This A Pain ReAssessment? No Presence of Pain Presence of Pain No Vitals Temperature (97.6 F-99.6 F) 100.9 F Temperature Source Rectal Ceftriaxone Sodium (Rocephin 1 Gram Ivpb) 1 gm in 100 mls @ 100 mls/hr IVPB STAT STA PRN Reason: Protocol Stop: 04/20/18 04:05 Last Admin: 04/20/18 03:16 Dose: 100 mls/hr eMAR Start Stop Document 04/20/18 03:16 AD (Rec: 04/20/18 03:18 AD [id number]) Intravenous Solution Start Date 04/20/18 Start Time 03:17 Meropenem 500 mg/ Sodium (Chloride) 50 mls @ 100 mls/hr IVPB Q12 STA PRN Reason: Protocol Stop: 04/20/18 04:31 Last Admin: 04/20/18 05:17 Dose: 100 mls/hr eMAR Start Stop Document 04/20/18 05:17 AD (Rec: 04/20/18 05:17 AD [id number]) Intravenous Solution Start Date 04/20/18 Start Time 05:17 Ibuprofen (Motrin Tab) 600 mg PO STAT STA Stop: 04/20/18 03:29 Last Admin: 04/20/18 03:42 Dose: 600 mg MAR Pain/Vitals Document 04/20/18 03:42 AD (Rec: 04/20/18 03:42 AD [id number]) Vitals Temperature (97.6 F-99.6 F) 100.2 F Temperature Source Rectal - Scribe Statement The provider has reviewed the documentation as recorded by the Scribpepper Reyes Provider Scribe Attestation: All medical record entries made by the Scribe were at my direction and personally dictated by me. I have reviewed the chart and agree that the record accurately reflects my personal performance of the history, physical exam, medical decision making, and the department course for this patient. I have also personally directed, reviewed, and agree with the discharge instructions and disposition. Disposition/Present on Arrival - Present on Arrival Any Indicators Present on Arrival: No History of DVT/PE: No History of Uncontrolled Diabetes: No Urinary Catheter: No History of Decub. Ulcer: No History Surgical Site Infection Following: None - Disposition Have Diagnosis and Disposition been Completed?: Yes Diagnosis: UTI (urinary tract infection) Disposition: HOSPITALIZED Disposition Time: 17:00 Patient Plan: Admission Condition: STABLE
[2018-04-20 02:34] LABS: BASO # 0.01 K/mm3 (0.0-2.0); BASO % 0.2 % (0.0-3.0); EOS # 0.2 (0.0-0.7); EOS % 4.9 % (1.5-5.0); GRAN # 3.05 (1.4-6.5); GRAN % 62.8 % (50.0-68.0); HEMOGLOBIN 8.9 g/dL (12.0-16.0); LYMPH # 1.1 (1.2-3.4); LYMPH % 21.8 % (22.0-35.0); MEAN CELL VOLUME 94.8 fl (80.0-105.0); MEAN CORPUSCULAR HEMOGLOBIN 30.7 pg (25.0-35.0); MEAN CORPUSCULAR HGB CONC 32.4 g/dl (31.0-37.0); MEAN PLATELET VOLUME 8.5 fl (7.0-11.0); MONO # 0.5 (0.1-0.6); MONO % 10.3 % (1.0-6.0); RBC 2.9 10^6/uL (3.5-6.1); RED CELL DISTRIBUTION WIDTH 15.7 % (11.5-14.5); WHITE BLOOD COUNT 4.9 10^3/ul (4.5-11.0)
[2018-04-20 02:35] LABS: PH,URINE 6.5 (4.7-8.0); URINE BILIRUBIN NEGATIVE (NEGATIVE); URINE BLOOD LARGE (NEGATIVE); URINE GLUCOSE (UA) NEGATIVE (NEGATIVE); URINE LEUKOCYTE ESTERASE LARGE Leu/uL (NEGATIVE); URINE PROTEIN 100 mg/dL (<30 mg/dL); URINE UROBILINOGEN 0.2 E.U./dL (<1 E.U./dL)
[2018-04-20 02:36] LABS: URINE APPEARANCE CLOUDY (CLEAR); URINE COLOR YELLOW (YELLOW)
[2018-04-20 02:41] LABS: VENOUS BLOOD GAS BASE EXCESS -1.3 mmol/L (0.0-2.0); VENOUS BLOOD GAS PO2 30 mm/Hg (30-55); VENOUS BLOOD PH 7.38 (7.32-7.43)
[2018-04-20 02:43] LABS: ALB/GLOB RATIO 0.9 (1.1-1.8); ALBUMIN 3.3 g/dL (3.0-4.8); CALCIUM 10.8 mg/dL (8.4-10.5)
[2018-04-20 02:45] LABS: INR 1.14; PARTIAL THROMBOPLASTIN TIME 28.2 Seconds (25.1-36.5)
[2018-04-20 02:51] LABS: URINE BACTERIA SMALL (NEG); URINE EPITHELIAL CELLS 0 - 2 /hpf (0-5); URINE WBC TNTC /hpf (0-6)
[2018-04-20] MEDS ORDERED: cefTRIAXone 1 gm 1 GM/100 ML BAG IVPB STA (03:06)
[2018-04-20] MEDS ORDERED: Meropenem 500 MG in Sodium Chloride 0.9% 50 ML IVPB STA (04:02)
--- NOTE | 2018-04-20 09:27 | RAD ---
Date of service: 04/20/2018 HISTORY: fever COMPARISON: 03/27/2018 FINDINGS: LUNGS: No active pulmonary disease. PLEURA: No significant pleural effusion identified, no pneumothorax apparent. CARDIOVASCULAR: Normal. OSSEOUS STRUCTURES: No significant abnormalities. VISUALIZED UPPER ABDOMEN: Normal. OTHER FINDINGS: None. IMPRESSION: No active disease.
[2018-04-20] MEDS: Sodium Chloride 0.45% 1,000 ML IV SCH ×2 (12:28→23:35)
--- NOTE | 2018-04-20 12:56 | HP ---
DATE OF EXAM: 04/20/2018 HISTORY OF PRESENT ILLNESS: This 62-year-old female was examined at bedside. This case was reviewed in detail with herself, her family present for the interview, emergency room physicians and Dr. Nilesh Lloyd from Infectious Disease. She is 62 years old. She has a significant past medical history of recurrent metastatic uterine carcinoma. At present, she presented to the [facility] ER earlier this morning with a chief complaint of fever and chills for the past 48 hours. She was recently hospitalized with Klebsiella pneumoniae urosepsis and has had her bilateral ureteral stents for obstructive uropathy recently replaced by Dr. Yadiel Weinberg during her last hospital stay. She was treated with a full course of IV meropenem, dose reduced for her chronic renal failure and at present is being readmitted for further evaluation of the above. Past medical history is also significant for obesity, chronic hypertension, anemia, hyperlipidemia, peptic ulcer disease with GERD, bilateral hydronephrosis with replaced bilateral ureteral stents, chronic renal failure stage 3, degenerative arthritis, chronic obstructive pulmonary disease and anemia of chronic disease. The patient's oncologist is Dr. Kathy Oquendo, medical doctor at the [facility]. She follows with Dr. Yadiel Weinberg, Urology and myself. OUTPATIENT MEDICATIONS: Include p.r.n. Ultracet, hydralazine, clonidine, Zocor, Pepcid, Procardia, multivitamin, Lopressor, Xopenex, Femara, Feosol, Cardura, Lipitor and vitamin C. ALLERGIES: THE PATIENT HAS NO KNOWN ALLERGIES TO MEDICATION. SOCIAL HISTORY: She is a nondrinker, nonsmoker, non IV drug misuser. She is a retired homemaker. FAMILY HISTORY: Noncontributory. REVIEW OF SYSTEMS: Constitutional review: She had intermittent fever and chills for the past 48 hours. Head review: No headache or seizure. Eye review: No change in visual acuity. Ear review: No hearing loss. Throat review: No swallowing difficulty. Neck review: No stiffness. Cardiac review: She has a history of chronic hypertension. Pulmonary: Chronic obstructive pulmonary disease. GI: Peptic ulcer disease with GERD. : As per HPI. Vascular: No claudication. Psychological: No anxiety. No depression. Neurological: No knowledge of seizure or stroke. Endocrinological: She has hyperlipidemia. No knowledge of insulin-dependent diabetes mellitus. PHYSICAL EXAMINATION: VITAL SIGNS: Earlier temperature 100.2, presently 98.7; respirations 20; pulse 54 and blood pressure 120/54 with a pulse ox of 100%. HEENT: Head: Normocephalic, atraumatic. Eyes: No icterus. Ears: Clear. Throat: Noninjected. NECK: Supple. HEART: Regular S1, S2. No pathological rubs, murmurs or gallops. LUNGS: Without wheezing. ABDOMEN: Obese, nontender. No palpable organomegaly. No rebound. No guarding. No tenderness. No CVA tenderness elicited. EXTREMITIES: No clubbing, no cyanosis, no edema. SKIN: No rash. VASCULAR: Legs warm to touch. PSYCHOLOGICAL: Alert and oriented x3. NEURO: Intact with deconditioning. LABORATORY DATA: White count 4900, hemoglobin 8.9, hematocrit 27.5, MCV 94.8, platelets 269. PT/INR 1.14, PTT 28.2. Sodium 142, K 4.2, chloride 108, bicarb 23, BUN 26, creatinine 2.1, estimated GFR 24 mL per minute, random blood sugar 138, calcium 10.8, phosphorous 5.1, magnesium 2.3, bilirubin 0.3, AST 30, ALT 16, alk phos 56. Urinalysis showed large leukocyte esterase, positive urine bacteria, 1-3 rbc's, too numerous to count wbc's. Chest x-ray was reviewed. It shows no active pulmonary disease. No significant pleural effusions. No pneumothorax. No obvious infiltrate. No CHF. IMPRESSION: A 62-year-old female with history as listed above, now with sepsis, rule out recurrent urosepsis with blood and urine cultures received by lab. The patient did receive one dose of Rocephin in the emergency room and as discussed with the emergency room physicians will be placed on meropenem 500 mg IV every 12, pending ID approval and adjustment by Dr. Nilesh Lloyd from Infectious Disease. The patient will be started on a heart-healthy renal diet. I will order IV fluids. She will have serial CBCs, electrolytes and a procalcitonin level ordered and based on clinical progress, additional diagnostic workup and testing and intervention will be entertained. Greater than 75 minutes was spent in the care and management, review of labs, orders and x-rays for this patient. All questions were answered. This was discussed with nursing and family. Luisa Pa MD KEO
--- NOTE | 2018-04-20 15:12 | CARD ---
APPROVED REPORT Date of service: 04/20/2018 EKG Measurement Heart [id number] <Conclusion> Sinus bradycardia Right bundle branch block Abnormal ECG
--- NOTE | 2018-04-20 20:13 | CP.PCM.CON ---
History of Present Illness - History of Present Illness History of Present Illness: Infectious Disease Consultation: April 20, 2018 62 yo female with known history of metastatic uterine carcinoma. [place] [facility] [place] with ESBL Klebsiella. The patient is complaining of fevers and chills for the past 48 hours. Extensive past medical history of Obesity, hypertension, anemia, hyperlipidemia, GERDs, bilateral hydronephrosis with replaced bilateral urethral stents, chronic renal disease stage III, degenerative arthritis, and COPD. PMHx: Obesity, hypertension, anemia, hyperlipidemia, GERDs, bilateral hydronephrosis with replaced bilateral urethral stents, chronic renal disease stage III, degenerative arthritis, and COPD PSHx: Bilateral urethral stents Allergies: NKDA Social Hx: No tobacco, no EtOH, or illicit drug use Active Medications Acetaminophen (Tylenol 325mg Tab) 650 mg PO Q6H PRN PRN Reason: Fever >100.4 F Atorvastatin Calcium (Lipitor) 10 mg PO DIN [facility] Last Admin: 04/20/18 18:02 Dose: 10 mg Calcium Acetate (Phoslo) 667 mg PO WM [facility] Last Admin: 04/20/18 18:00 Dose: 667 mg Clonidine HCl (Catapres) 0.1 mg PO DAILY [facility] Doxazosin Mesylate (Cardura) 1 mg PO DAILY [facility] Ferrous Sulfate (Feosol) 324 mg PO DAILY [facility] Hydralazine HCl (Apresoline) 10 mg PO Q8 [facility] Sodium Chloride (Sodium Chloride 0.45%) 1,000 mls @ 100 mls/hr IV .Q10H [facility] Stop: 04/22/18 10:00 Last Admin: 04/20/18 12:28 Dose: 100 mls/hr Letrozole (Femara) 2.5 mg PO DAILY [facility] Metoprolol Tartrate (Lopressor) 150 mg PO BID [facility] Last Admin: 04/20/18 18:01 Dose: 150 mg Miconazole Nitrate (Miconazole 2% Cream) 1 ea TOP BID [facility] Family Hx: None given ROS: Patient stating fever and chills for the past 2 days. No headaches, dizziness, chest pain, abdominal pain, melena, hematuria, hematemesis, hematochezia, depression, anxiety Past Patient History - Past Social History Smoking Status: Never Smoked - CARDIAC Hx Cardiac Disorders: Yes Hx Hypercholesterolemia: Yes Hx Hypertension: Yes - PULMONARY Hx Respiratory Disorders: Yes Hx Chronic Obstructive Pulmonary Disease (COPD): Yes - NEUROLOGICAL Hx Neurological Disorder: No - HEENT Hx HEENT Problems: No - RENAL Hx Chronic Kidney Disease: Yes Hx Kidney Stones: Yes Hx Renal Failure: Yes - ENDOCRINE/METABOLIC Hx Endocrine Disorders: No - HEMATOLOGICAL/ONCOLOGICAL Hx Blood Disorders: Yes Hx Cancer: Yes Hx Chemotherapy: Yes (uterine) - INTEGUMENTARY Other/Comment: skin break down in fold of skin groin, breasts, thigh, - MUSCULOSKELETAL/RHEUMATOLOGICAL Hx Falls: Yes - GASTROINTESTINAL Hx Gastrointestinal Disorders: Yes - GENITOURINARY/GYNECOLOGICAL Hx Genitourinary Disorders: No Hx Urinary Tract Infection: Yes - PSYCHIATRIC Hx Depression: No Hx Emotional Abuse: No Hx Physical Abuse: No Hx Substance Use: No - SURGICAL HISTORY Other/Comment: kidney stent - ANESTHESIA Hx Anesthesia: Yes Hx Anesthesia Reactions: No Hx Malignant Hyperthermia: No Meds Allergies/Adverse Reactions: Allergies Allergy/AdvReac Type Severity Reaction Status Date / Time No Known Allergies Allergy Verified 04/05/18 06:13 - Medications Medications: Current Medications Acetaminophen (Tylenol 325mg Tab) 650 mg PO Q6H PRN PRN Reason: Fever >100.4 F Atorvastatin Calcium (Lipitor) 10 mg PO DIN [facility] Last Admin: 04/20/18 18:02 Dose: 10 mg Calcium Acetate (Phoslo) 667 mg PO WM [facility] Last Admin: 04/20/18 18:00 Dose: 667 mg Clonidine HCl (Catapres) 0.1 mg PO DAILY [facility] Doxazosin Mesylate (Cardura) 1 mg PO DAILY [facility] Ferrous Sulfate (Feosol) 324 mg PO DAILY [facility] Hydralazine HCl (Apresoline) 10 mg PO Q8 [facility] Sodium Chloride (Sodium Chloride 0.45%) 1,000 mls @ 100 mls/hr IV .Q10H [facility] Stop: 04/22/18 10:00 Last Admin: 04/20/18 12:28 Dose: 100 mls/hr Letrozole (Femara) 2.5 mg PO DAILY [facility] Metoprolol Tartrate (Lopressor) 150 mg PO BID [facility] Last Admin: 04/20/18 18:01 Dose: 150 mg Physical Exam - Constitutional Appears: Non-toxic, No Acute Distress, Chronically Ill Additional comments: Obese - Head Exam Head Exam: ATRAUMATIC, NORMOCEPHALIC - Eye Exam Eye Exam: EOMI, PERRL Pupil Exam: NORMAL ACCOMODATION, PERRL - ENT Exam ENT Exam: Mucous Membranes Moist, Normal External Ear Exam, TM's Normal Bilaterally - Neck Exam Neck exam: Positive for: Full Rom, Normal Inspection - Respiratory Exam Respiratory Exam: Clear to Auscultation Bilateral, NORMAL BREATHING PATTERN. absent: Rales, Rhonchi, Wheezes - Cardiovascular Exam Cardiovascular Exam: REGULAR RHYTHM, RRR, +S1, +S2 - GI/Abdominal Exam GI & Abdominal Exam: Normal Bowel Sounds, Soft. absent: Distended, Tenderness - Extremities Exam Extremities exam: Positive for: full ROM, normal inspection. Negative for: joint swelling, pedal edema - Neurological Exam Neurological exam: Alert, CN II-XII Intact, Oriented x3 - Psychiatric Exam Psychiatric exam: Normal Affect, Normal Mood - Skin Skin Exam: Intact, Normal Color Results - Vital Signs Recent Vital Signs: Last Vital Signs Temp 97.4 F L 04/20/18 18:32 Pulse 62 04/20/18 18:49 Resp 18 04/20/18 18:32 BP 165/70 H 04/20/18 18:32 Pulse Ox 98 04/20/18 18:32 - Labs Result Diagrams: 04/20/18 02:00 04/20/18 02:00 Labs: Laboratory Results - last 24 hr 04/20/18 12:00 Procalcitonin 0.07 L Assessment & Plan - Assessment and Plan (Free Text) Assessment: 62 yo female with fevers and chills who was in [facility] about 3-4 weeks ago for UTI with ESBL+ Klebsiella. Again presenting with fevers and chills. Patient with multiple medical issues including recurrent metastatic uterine carcinoma. Will start Meropenem until cultures return. Supportive care. Thank you for allowing me to participate in the care of the patient, we will follow with you.
[2018-04-20] MEDS: Meropenem 500 MG in Sodium Chloride 0.9% 50 ML IVPB SCH (21:31)
[2018-04-20] MEDS: Miconazole 2% Cream(30 gm) TOP SCH (21:32)
[2018-04-21] MEDS ORDERED: Levalbuterol 1.25 MG/3 ML Inhal Soln UD IH PRN (06:59)
[2018-04-21] MEDS ORDERED: Nitroglycerin 2% Ointment Foilpak UD TOP PRN (07:00)
[2018-04-21 07:10] LABS: HEMOGLOBIN 9.6 g/dL (12.0-16.0); MEAN CELL VOLUME 95.5 fl (80.0-105.0); MEAN CORPUSCULAR HEMOGLOBIN 30.7 pg (25.0-35.0); MEAN CORPUSCULAR HGB CONC 32.1 g/dl (31.0-37.0); MEAN PLATELET VOLUME 8.7 fl (7.0-11.0); RBC 3.13 10^6/uL (3.5-6.1); RED CELL DISTRIBUTION WIDTH 15.3 % (11.5-14.5); WHITE BLOOD COUNT 5.8 10^3/ul (4.5-11.0)
[2018-04-21 07:41] LABS: ALB/GLOB RATIO 0.8 (1.1-1.8); ALBUMIN 3.2 g/dL (3.0-4.8); CALCIUM 8.8 mg/dL (8.4-10.5)
[2018-04-21] MEDS: Meropenem 500 MG in Sodium Chloride 0.9% 50 ML IVPB SCH ×2 (09:25→21:58)
[2018-04-21] MEDS: NIFEdipine 90 mg ER Tab PO SCH (09:27)
[2018-04-21] MEDS: Miconazole 2% Cream(30 gm) TOP SCH ×2 (09:29→17:13)
[2018-04-21] MEDS: Sodium Chloride 0.45% 1,000 ML IV SCH ×2 (09:29→17:15)
--- NOTE | 2018-04-21 15:53 | CP.PCM.PN ---
Subjective - Date & Time of Evaluation Date of Evaluation: 04/21/18 Time of Evaluation: 14:40 - Subjective Subjective: Infectious Disease Follow Up: April 21, 2018 62 yo female with known history of metastatic uterine carcinoma. [place] [facility] [place] with ESBL Klebsiella. The patient is complaining of fevers and chills for the past 48 hours. Extensive past medical history of Obesity, hypertension, anemia, hyperlipidemia, GERDs, bilateral hydronephrosis with replaced bilateral urethral stents, chronic renal disease stage III, degenerative arthritis, and COPD. The patient is growing gram negative rods of 50,000-100,000 CFU/ml. Maintaining meropenem until culture results return. Objective - Vital Signs/Intake and Output Vital Signs (last 24 hours): Temp Pulse Resp BP Pulse Ox 98.6 F 62 20 110/60 95 04/21/18 06:00 04/21/18 13:13 04/21/18 06:00 04/21/18 13:13 04/21/18 06:00 Intake and Output: 04/21/18 04/21/18 06:59 18:59 Intake Total 1460 Output Total 1400 Balance 60 - Medications Medications: Current Medications Acetaminophen (Tylenol 325mg Tab) 650 mg PO Q6H PRN PRN Reason: Fever >100.4 F Atorvastatin Calcium (Lipitor) 10 mg PO DIN [facility] Last Admin: 04/20/18 18:02 Dose: 10 mg Calcium Acetate (Phoslo) 667 mg PO WM [facility] Last Admin: 04/21/18 12:17 Dose: 667 mg Clonidine HCl (Catapres) 0.1 mg PO DAILY [facility] Last Admin: 04/21/18 09:27 Dose: 0.1 mg Doxazosin Mesylate (Cardura) 2 mg PO DAILY [facility] Last Admin: 04/21/18 09:29 Dose: 2 mg Ferrous Sulfate (Feosol) 324 mg PO DAILY [facility] Last Admin: 04/21/18 09:27 Dose: 324 mg Hydralazine HCl (Apresoline) 10 mg PO Q8 [facility] Last Admin: 04/21/18 13:13 Dose: 10 mg Sodium Chloride (Sodium Chloride 0.45%) 1,000 mls @ 100 mls/hr IV .Q10H [facility] Stop: 04/22/18 10:00 Last Admin: 04/21/18 09:29 Dose: 100 mls/hr Meropenem 500 mg/ Sodium (Chloride) 50 mls @ 100 mls/hr IVPB Q12 [facility]I PRN Reason: Protocol Last Admin: 04/21/18 09:25 Dose: 100 mls/hr Letrozole (Femara) 2.5 mg PO DAILY [facility] Last Admin: 04/21/18 09:26 Dose: 2.5 mg Levalbuterol HCl (Xopenex) 1.25 mg IH [id number] PRN PRN Reason: Shortness of Breath Metoprolol Tartrate (Lopressor) 150 mg PO BID [facility] Last Admin: 04/21/18 09:28 Dose: 150 mg Miconazole Nitrate (Miconazole 2% Cream) 1 ea TOP BID [facility] Last Admin: 04/21/18 09:29 Dose: 1 applic Nifedipine (Procardia Xl) 90 mg PO DAILY [facility] Last Admin: 04/21/18 09:27 Dose: 90 mg Nitroglycerin (Nitro-Bid 2% Oint) 1 ea TOP Q4H PRN PRN Reason: accelerated hypertension Tramadol/Acetaminophen (Ultracet 37.5/325 Mg) 1 tab PO Q6H PRN PRN Reason: severe pain - Labs Labs: 04/21/18 06:30 04/21/18 06:30 PT 13.0 SECONDS (9.4-12.5) H 04/20/18 02:00 INR 1.14 04/20/18 02:00 APTT 28.2 Seconds (25.1-36.5) 04/20/18 02:00 - Constitutional Appears: Non-toxic, No Acute Distress, Chronically Ill - Head Exam Head Exam: ATRAUMATIC, NORMOCEPHALIC - Eye Exam Eye Exam: EOMI, PERRL Pupil Exam: NORMAL ACCOMODATION, PERRL - ENT Exam ENT Exam: Mucous Membranes Moist, Normal External Ear Exam, TM's Normal Bilaterally - Neck Exam Neck Exam: Full ROM, Normal Inspection - Respiratory Exam Respiratory Exam: Clear to Ausculation Bilateral, NORMAL BREATHING PATTERN. absent: Rales, Rhonchi, Wheezes - Cardiovascular Exam Cardiovascular Exam: REGULAR RHYTHM, RRR, +S1, +S2 - GI/Abdominal Exam GI & Abdominal Exam: Soft, Normal Bowel Sounds. absent: Distended, Tenderness - Extremities Exam Extremities Exam: Full ROM, Normal Inspection - Neurological Exam Neurological Exam: Alert, Awake, CN II-XII Intact, Oriented x3 - Psychiatric Exam Psychiatric exam: Normal Affect, Normal Mood - Skin Skin Exam: Intact, Normal Color Assessment and Plan - Assessment and Plan (Free Text) Assessment: 62 yo female with fevers and chills who was in [facility] about 3-4 weeks ago for UTI with ESBL+ Klebsiella. Again presenting with fevers and chills. Patient with multiple medical issues including recurrent metastatic uterine carcinoma. Will start Meropenem until cultures return. Supportive care. Urine cultures showing gram negative rods 50,000-100,000 CFU/ml. Awaiting identification and sensitivities. Thank you for allowing me to participate in the care of the patient, we will follow with you.
[2018-04-22] MEDS: TraMADol/Apap 37.5/325 mg Tab PO PRN ×2 (03:02→10:24)
[2018-04-22] MEDS: Sodium Chloride 0.45% 1,000 ML IV SCH (05:05)
[2018-04-22 06:45] LABS: ALB/GLOB RATIO 0.9 (1.1-1.8); ALBUMIN 3.2 g/dL (3.0-4.8); CALCIUM 8.8 mg/dL (8.4-10.5)
[2018-04-22] MEDS: Meropenem 500 MG in Sodium Chloride 0.9% 50 ML IVPB SCH ×2 (09:24→21:52)
[2018-04-22] MEDS: NIFEdipine 90 mg ER Tab PO SCH (09:27)
[2018-04-22] MEDS: Miconazole 2% Cream(30 gm) TOP SCH ×2 (14:19→17:32)
--- NOTE | 2018-04-22 16:43 | CP.PCM.PN ---
Subjective - Date & Time of Evaluation Date of Evaluation: 04/22/18 Time of Evaluation: 15:30 - Subjective Subjective: Infectious Disease Follow Up: April 22, 2018 62 yo female with known history of metastatic uterine carcinoma. [place] [facility] [place] ESBL Klebsiella. The patient is complaining of fevers and chills for the past 48 hours. Extensive past medical history of Obesity, hypertension, anemia, hyperlipidemia, GERDs, bilateral hydronephrosis with replaced bilateral urethral stents, chronic renal disease stage III, degenerative arthritis, and COPD. The patient is growing gram negative rods of 50,000-100,000 CFU/ml. Maintaining meropenem until culture results return. Patient feeling better. Objective - Vital Signs/Intake and Output Vital Signs (last 24 hours): Temp Pulse Resp BP Pulse Ox 98.2 F 65 18 168/70 H 96 04/22/18 08:13 04/22/18 08:13 04/22/18 08:13 04/22/18 08:13 04/22/18 08:13 Intake and Output: 04/22/18 04/22/18 06:59 18:59 Intake Total 2740 Balance 2740 - Medications Medications: Current Medications Acetaminophen (Tylenol 325mg Tab) 650 mg PO Q6H PRN PRN Reason: Fever >100.4 F Atorvastatin Calcium (Lipitor) 10 mg PO DIN [facility] Last Admin: 04/21/18 17:11 Dose: 10 mg Calcium Acetate (Phoslo) 667 mg PO WM [facility] Last Admin: 04/22/18 14:23 Dose: Not Given Clonidine HCl (Catapres) 0.1 mg PO DAILY [facility] Last Admin: 04/22/18 09:26 Dose: 0.1 mg Doxazosin Mesylate (Cardura) 2 mg PO DAILY [facility] Last Admin: 04/22/18 09:24 Dose: 2 mg Ferrous Sulfate (Feosol) 324 mg PO DAILY [facility] Last Admin: 04/22/18 09:26 Dose: 324 mg Hydralazine HCl (Apresoline) 10 mg PO Q8 [facility] Last Admin: 04/22/18 05:06 Dose: 10 mg Meropenem 500 mg/ Sodium (Chloride) 50 mls @ 100 mls/hr IVPB Q12 [facility] PRN Reason: Protocol Last Admin: 04/22/18 09:24 Dose: 100 mls/hr Letrozole (Femara) 2.5 mg PO DAILY [facility] Last Admin: 04/22/18 09:26 Dose: 2.5 mg Levalbuterol HCl (Xopenex) 1.25 mg IH [id number] PRN PRN Reason: Shortness of Breath Metoprolol Tartrate (Lopressor) 150 mg PO BID [facility] Last Admin: 04/22/18 09:26 Dose: 150 mg Miconazole Nitrate (Miconazole 2% Cream) 1 ea TOP BID [facility] Last Admin: 04/22/18 14:19 Dose: Not Given Nifedipine (Procardia Xl) 90 mg PO DAILY [facility] Last Admin: 04/22/18 09:27 Dose: 90 mg Nitroglycerin (Nitro-Bid 2% Oint) 1 ea TOP Q4H PRN PRN Reason: accelerated hypertension Tramadol/Acetaminophen (Ultracet 37.5/325 Mg) 1 tab PO Q6H PRN PRN Reason: severe pain Last Admin: 04/22/18 10:24 Dose: 1 tab Zolpidem Tartrate (Ambien) 5 mg PO HS PRN; Protocol PRN Reason: Insomnia - Labs Labs: 04/21/18 06:30 04/22/18 05:00 PT 13.0 SECONDS (9.4-12.5) H 04/20/18 02:00 INR 1.14 04/20/18 02:00 APTT 28.2 Seconds (25.1-36.5) 04/20/18 02:00 - Constitutional Appears: Non-toxic, No Acute Distress, Chronically Ill - Head Exam Head Exam: ATRAUMATIC, NORMOCEPHALIC - Eye Exam Eye Exam: EOMI, PERRL Pupil Exam: NORMAL ACCOMODATION, PERRL - ENT Exam ENT Exam: Mucous Membranes Moist, Normal External Ear Exam, TM's Normal Bilaterally - Neck Exam Neck Exam: Full ROM, Normal Inspection - Respiratory Exam Respiratory Exam: Clear to Ausculation Bilateral, NORMAL BREATHING PATTERN. absent: Rales, Rhonchi, Wheezes - Cardiovascular Exam Cardiovascular Exam: REGULAR RHYTHM, RRR, +S1, +S2 - GI/Abdominal Exam GI & Abdominal Exam: Soft, Normal Bowel Sounds. absent: Distended, Tenderness - Extremities Exam Extremities Exam: Full ROM, Normal Inspection - Neurological Exam Neurological Exam: Alert, Awake, Oriented x3. absent: CN II-XII Intact - Psychiatric Exam Psychiatric exam: Normal Affect, Normal Mood - Skin Skin Exam: Intact, Normal Color Assessment and Plan - Assessment and Plan (Free Text) Assessment: 62 yo female with fevers and chills who [place] [facility] [place] for U[place] with ESBL+ Klebsiella. Again presenting with fevers and chills. Patient with multiple medical issues including recurrent metastatic uterine carcinoma. Will start Meropenem until cultures return. Supportive care. Urine cultures showing gram negative rods 50,000-100,000 CFU/ml. Awaiting identification and sensitivities. Patient feeling better. Fungal rash in intertriginous areas. Topical treatment. Thank you for allowing me to participate in the care of the patient, we will follow with you.
[2018-04-22 16:57] VITALS: RESP 20
[2018-04-23 06:55] LABS: ALB/GLOB RATIO 0.9 (1.1-1.8); ALBUMIN 3.3 g/dL (3.0-4.8); CALCIUM 8.9 mg/dL (8.4-10.5)
[2018-04-23] MEDS: Meropenem 500 MG in Sodium Chloride 0.9% 50 ML IVPB SCH ×2 (09:17→21:31)
[2018-04-23] MEDS: NIFEdipine 90 mg ER Tab PO SCH (09:18)
[2018-04-23] MEDS: Miconazole 2% Cream(30 gm) TOP SCH ×2 (09:19→18:35)
[2018-04-23] MEDS: TraMADol/Apap 37.5/325 mg Tab PO PRN (09:26)
--- NOTE | 2018-04-23 19:05 | CP.PCM.PN ---
Subjective - Date & Time of Evaluation Date of Evaluation: 04/23/18 Time of Evaluation: 16:30 - Subjective Subjective: Infectious Disease Follow Up: April 23, 2018 62 yo female with known history of metastatic uterine carcinoma. [place] [facility] [place] ESBL Klebsiella. The patient is complaining of fevers and chills for the past 48 hours. Extensive past medical history of Obesity, hypertension, anemia, hyperlipidemia, GERDs, bilateral hydronephrosis with replaced bilateral urethral stents, chronic renal disease stage III, degenerative arthritis, and COPD. The patient is growing gram negative rods of 50,000-100,000 CFU/ml. Maintaining meropenem until culture results return. Patient feeling better. Culture results showing ESBL+ Pseudomonas. The patient is showing sensitivity to Meropenem and Cipro. ON Meropenem currently. Objective - Vital Signs/Intake and Output Vital Signs (last 24 hours): Temp Pulse Resp BP Pulse Ox 97.5 F L 61 20 109/58 L 99 04/23/18 18:04 04/23/18 18:04 04/23/18 18:04 04/23/18 18:04 04/23/18 18:04 - Medications Medications: Current Medications Acetaminophen (Tylenol 325mg Tab) 650 mg PO Q6H PRN PRN Reason: Fever >100.4 F Atorvastatin Calcium (Lipitor) 10 mg PO DIN [facility] Last Admin: 04/23/18 18:35 Dose: 10 mg Calcium Acetate (Phoslo) 667 mg PO WM [facility] Last Admin: 04/23/18 18:35 Dose: 667 mg Clonidine HCl (Catapres) 0.1 mg PO DAILY [facility] Last Admin: 04/23/18 09:18 Dose: 0.1 mg Doxazosin Mesylate (Cardura) 2 mg PO DAILY [facility] Last Admin: 04/23/18 09:18 Dose: 2 mg Ferrous Sulfate (Feosol) 324 mg PO DAILY [facility] Last Admin: 04/23/18 09:18 Dose: 324 mg Home Med (Home Med) 1 unit PO DAILY [facility] Home Med (Home Med) 1 unit PO DAILY [facility] Home Med (Home Med) 2 unit PO 1000 [facility] Home Med (Home Med) 1 unit PO 1800 [facility] Home Med (Home Med) 1 unit PO DAILY [facility] Hydralazine HCl (Apresoline) 10 mg PO Q8 [facility] Last Admin: 04/23/18 14:31 Dose: 10 mg Meropenem 500 mg/ Sodium (Chloride) 50 mls @ 100 mls/hr IVPB Q12 [facility] PRN Reason: Protocol Last Admin: 04/23/18 09:17 Dose: 100 mls/hr Letrozole (Femara) 2.5 mg PO DAILY [facility] Last Admin: 04/23/18 09:19 Dose: 2.5 mg Levalbuterol HCl (Xopenex) 1.25 mg IH [id number] PRN PRN Reason: Shortness of Breath Metoprolol Tartrate (Lopressor) 150 mg PO BID [facility] Last Admin: 04/23/18 18:35 Dose: 150 mg Miconazole Nitrate (Miconazole 2% Cream) 1 ea TOP BID [facility] Last Admin: 04/23/18 18:35 Dose: Not Given Nifedipine (Procardia Xl) 90 mg PO DAILY [facility] Last Admin: 04/23/18 09:18 Dose: 90 mg Nitroglycerin (Nitro-Bid 2% Oint) 1 ea TOP Q4H PRN PRN Reason: accelerated hypertension Tramadol/Acetaminophen (Ultracet 37.5/325 Mg) 1 tab PO Q6H PRN PRN Reason: severe pain Last Admin: 04/23/18 09:26 Dose: 1 tab Zolpidem Tartrate (Ambien) 5 mg PO HS PRN; Protocol PRN Reason: Insomnia Last Admin: 04/22/18 21:51 Dose: 5 mg - Labs Labs: 04/21/18 06:30 04/23/18 05:00 PT 13.0 SECONDS (9.4-12.5) H 04/20/18 02:00 INR 1.14 04/20/18 02:00 APTT 28.2 Seconds (25.1-36.5) 04/20/18 02:00 - Constitutional Appears: Non-toxic, No Acute Distress, Chronically Ill - Head Exam Head Exam: ATRAUMATIC, NORMOCEPHALIC - Eye Exam Eye Exam: EOMI, PERRL Pupil Exam: NORMAL ACCOMODATION, PERRL - ENT Exam ENT Exam: Mucous Membranes Moist, Normal External Ear Exam, TM's Normal Bilaterally - Neck Exam Neck Exam: Full ROM, Normal Inspection - Respiratory Exam Respiratory Exam: Clear to Ausculation Bilateral, NORMAL BREATHING PATTERN. absent: Decreased Breath Sounds, Rhonchi, Wheezes - Cardiovascular Exam Cardiovascular Exam: REGULAR RHYTHM, RRR, +S1, +S2 - GI/Abdominal Exam GI & Abdominal Exam: Soft, Tenderness, Normal Bowel Sounds. absent: Distended - Extremities Exam Extremities Exam: Full ROM, Normal Inspection - Neurological Exam Neurological Exam: Alert, Awake, CN II-XII Intact, Oriented x3 - Psychiatric Exam Psychiatric exam: Normal Affect, Normal Mood - Skin Skin Exam: Intact, Normal Color Assessment and Plan - Assessment and Plan (Free Text) Assessment: 62 yo female with fevers and chills who was in [facility] about 3-4 weeks ago for UTI with ESBL+ Klebsiella. Again presenting with fevers and chills. Patient with multiple medical issues including recurrent metastatic uterine carcinoma. Will start Meropenem until cultures return. Supportive care. Urine cultures showing gram negative rods 50,000-100,000 CFU/ml. Awaiting identification and sensitivities. Patient feeling better. ESBL+ Pseudomonas growth with sensitivities to Meropenem and Cipro. Fungal rash in intertriginous areas. Topical treatment. Thank you for allowing me to participate in the care of the patient, we will follow with you.
[2018-04-24] MEDS: TraMADol/Apap 37.5/325 mg Tab PO PRN (05:06)
--- NOTE | 2018-04-24 08:23 | PN ---
DATE: 04/23/2018 SUBJECTIVE: This 62-year-old female remains hospitalized for recurrent urosepsis. I reviewed her Microbiology studies and her urine culture is growing Pseudomonas aeruginosa, sensitive to ciprofloxacin, gentamicin and meropenem. I am awaiting reevaluation by Dr. Nilesh Lloyd to define duration and choice of antibiotic for this recurrent urinary tract infection. PHYSICAL EXAMINATION: VITAL SIGNS: Her temperature is 99, respirations 20, pulse 84 and blood pressure 161/77 with pulse ox 98% on room air. HEENT: Head normocephalic, atraumatic. Eyes: No icterus. Ears: Clear. Throat noninjected. NECK: Supple. HEART: Regular S1, S2. LUNGS: Clear. ABDOMEN: Obese. No CVA tenderness. No suprapubic tenderness. EXTREMITIES: No edema. SKIN: Without rash. NEUROLOGICAL: Deconditioned. VASCULAR: Legs are warm to touch. PSYCHOLOGICAL: Alert. LABORATORY DATA: Sodium 138, K 4.6, chloride 106, bicarb 23, BUN 27, creatinine 2.2. Estimated GFR 22 mL/minute. All liver function testing is normal including bilirubin 0.4, AST 22, ALT 17, alkaline phosphatase 63. White count 5800, hemoglobin 9.6, hematocrit 29.9, platelets 308,000. IMPRESSION: A 62-year-old female with urosepsis, now with urinary tract infection with Pseudomonas aeruginosa, sensitive to meropenem, previous history of Klebsiella pneumoniae, urosepsis with comorbidities of obesity, recurrent uterine metastatic cancer, chronic insomnia, hypertension, anemia of chronic disease, iron-deficiency anemia, hyperlipidemia, hyperphosphatemia, chronic obstructive pulmonary disease. PLAN: At present is to continue Ambien, hydralazine, Cardura, clonidine, Femara, Feosol, Lipitor, Lopressor, IV meropenem. with further evaluation by Dr. Nilesh Lloyd, with whom I will discuss duration of therapy and choice of antibiotic, Miconazole topical cream, Nitro-Bid topical ointment for accelerated hypertension, PhosLo, Procardia, Tylenol, Ultracet and Xopenex. The patient remains on heart-healthy diet, isolation. Dietary supplement with Nepro 1 can daily and I have instructed the patient and Nursing to allow food from home. She continues on physical therapy for ambulation safety. She requires cardiac monitoring due to her deconditioned and debilitated status and greater than 35 minutes was spent in the care management, review of labs, orders, x-rays and discussion of this patient's case with herself, family and Nursing. All questions were answered. Luisa Pa MD MTDAlex
--- NOTE | 2018-04-24 08:23 | PN ---
DATE: 04/22/2018 SUBJECTIVE: This 62-year-old female was examined at the bedside and this case was reviewed in detail with her nurse. The patient remains weak and deconditioned. She remains on respiratory and contact precautions and is receiving parenteral meropenem in the setting of urosepsis. To date, Microbiology studies are showing gram-negative nick, but no ID and sensitivity is yet available. The patient is receiving IV fluids to ensure adequate urinary output and remains weak and deconditioned, but cooperating with physical therapy. PHYSICAL EXAMINATION: VITAL SIGNS: She is in a normal sinus rhythm on the monitoring and evaluation advisor and her temperature was 98.2, respirations 18, pulse 65 and blood pressure 168/70 with a pulse ox of 96% on room air. HEENT: Head: Normocephalic, atraumatic. Eyes: No icterus. Ears: Clear. Throat: Noninjected. NECK: Supple. HEART: Regular S1, S2. LUNGS: Clear. ABDOMEN: Obese. EXTREMITIES: No edema. SKIN: Without rash. NEUROLOGICAL: Deconditioned. VASCULAR: Legs warm to touch. PSYCHOLOGICAL: Alert and oriented x3. DATA: White count 5800, hemoglobin 9.6, hematocrit 29.9, platelets 308,000. Sodium 140, K 4.6, chloride 106, bicarb 23, BUN 22, creatinine 2, random blood sugar 114. Bilirubin 0.3, AST 19, ALT 20 and alk phos 56. Urine culture showing gram-negative nick, ID and sensitivity pending with blood culture showing no growth at two days. IMPRESSION: A 62-year-old female with recurrent urinary tract infection, urosepsis, history of chronic renal failure stage III in the setting of obstructive hydronephrosis with chronic bilateral ureteral stent, recently change by Dr. Yadiel Weinberg from Urology with comorbidities of recurrent metastatic uterine cancer, morbid obesity, chronic insomnia, chronic hypertension, anemia of chronic disease, iron-deficiency anemia, hyperlipidemia, degenerative arthritis and chronic obstructive pulmonary disease. As discussed with Nursing, the patient will be scheduled for Ambien 5 mg p.o. at bedtime p.r.n. insomnia and continues on hydralazine, Cardura, clonidine, Femara, Feosol, Lipitor, Lopressor and meropenem 500 mg IV every 12 hours, dose reduced for chronic renal failure. She continues on Miconazole antifungal cream, nitroglycerin ointment to chest wall p.r.n. accelerated hypertension, PhosLo, Procardia, Tylenol, Ultracet and Xopenex. She remains on contact precautions, heart-healthy diet and is receiving physical therapy for reconditioning and gait training. Pending results of urinary cultures. Antibiotics will be adjusted and disposition will be decided. The patient has requested that I call her oncologist, Dr. Kathy Oquendo regarding her current hospitalization and status and the patient was advised based on Oncology's recommendation, she will be readied for flu and pneumonia vaccines. Greater than 35 minutes was spent in the care management, review of labs, orders and x-rays and discussion of this patient's case with herself, family and Nursing. All questions were answered. Luisa Pa MD MTDD
--- NOTE | 2018-04-24 08:25 | PN ---
DATE: 04/21/2018 SUBJECTIVE: This 62-year-old female was examined on the cardiac gibson at the [facility]. This case was reviewed in detail with nurse, Paris Tejeda, registered nurse. The patient remains weak and deconditioned, but is out of bed to chair. She remains in contact isolation and is tolerating parenteral antibiotic therapy. I have ordered physical therapy for reconditioning and gait training and the patient has requested food from home. She denies any fever, chills, chest pain or shortness of breath and review of her EMR shows low-grade temperature since admission. OBJECTIVE: VITAL SIGNS: At present, she is in a normal sinus rhythm on the sommelier with a temperature of 98, respirations 20, pulse 80 and blood pressure 150/70 and pulse ox 95% room air. HEENT: Head: Normocephalic, atraumatic. Eyes: No icterus. Ears: Clear. Throat noninjected. NECK: Supple. HEART: Regular S1, S2. No pathological rubs, murmurs or gallops. LUNGS: Had occasional rhonchi that cleared with coughing. ABDOMEN: Obese, nontender. No palpable organomegaly. No rebound, no guarding, no tenderness. EXTREMITIES: No edema. SKIN: No rash. VASCULAR: Legs warm to touch. PSYCHOLOGICAL: Alert. NEUROLOGICAL: Deconditioned. DATA: White count 5800, hemoglobin 9.6, hematocrit 29.9, platelets 308,000. PT/INR 1.14, PTT 28.2. Sodium 140, K 4.5, chloride 107, bicarb 22, BUN 23, creatinine 1.9. Estimated GFR 27 mL per minute. Random blood sugar 121, calcium 8.8. Bilirubin 0.3, AST 20, ALT 15, alk phos 55. Procalcitonin level 0.07. Urinalysis showed large leukocyte esterase and bacteruria. Blood cultures show no growth at present and there is a gram-negative nick noted in her urine culture, ID and sensitivity pending. IMPRESSION: This is a 62-year-old female with history of recurrent urosepsis, most recently Klebsiella pneumoniae, for which she was treated with meropenem parenterally and comorbidities of recurrent metastatic uterine cancer, obesity, chronic hypertension, anemia of chronic disease, iron-deficiency anemia, hyperlipidemia, degenerative arthritis, hyperphosphatemia and chronic obstructive pulmonary disease. As discussed with the patient and nurse, Paris Tejeda, the patient will be treated with hydralazine 10 mg p.o. every 8 hours, Cardura 2 mg p.o. daily, clonidine 0.1 mg p.o. daily, Femara 2.5 mg p.o. daily, Feosol 324 mg p.o. daily, Lipitor 10 mg p.o. at dinner time, Lopressor 150 mg p.o. b.i.d. and meropenem 500 mg IV every 12 hours under the ID approval of Dr. Nilesh Lloyd from Infectious Disease. She continues on nystatin to affected skin areas b.i.d., nitroglycerin 1 inch to chest wall every 4 hours for accelerated hypertension if systolic blood pressure is greater than 160 or diastolic blood pressure is greater than 100, PhosLo 667 mg p.o. after meals t.i.d., Procardia XL 90 mg p.o. daily, 0.9 saline at 100 mL/hour, Tylenol 650 p.o. every 6 hours p.r.n. temperature or [id number] pain, Ultracet 1 tablet p.o. every 6 hours p.r.n. severe pain and Xopenex 1.25 mg inhalational therapy every 6 hours p.r.n. shortness of breath. The patient is scheduled for comprehensive metabolic panel in the morning and I will check the results of her urine culture when available. She continues on a heart-healthy, soft bland, renal restricted diet; will remain in contact isolation and is ordered to have physical therapy for reconditioning and gait training. Based on her clinical progress, additional diagnostic testing and workup will be entertained. It is this patient's desire to be discharged to home when medically cleared and this will be discussed with Dr. Nilesh Lloyd from Infectious Disease. Greater than 35 minutes were spent in the care management, review of labs, orders and x-rays and discussion of this patient with herself, family, co-consultants and nursing. All questions were answered. Luisa Pa MD KEO
[2018-04-24] MEDS: Meropenem 500 MG in Sodium Chloride 0.9% 50 ML IVPB SCH ×2 (10:06→21:51)
[2018-04-24] MEDS: Miconazole 2% Cream(30 gm) TOP SCH ×2 (10:07→17:24)
[2018-04-24] MEDS: NIFEdipine 90 mg ER Tab PO SCH (10:07)
[2018-04-24] MEDS: [UNRECOGNIZED DRUG - OTHER] PO SCH (10:08)
[2018-04-24] MEDS: [UNRECOGNIZED DRUG - OTHER] PO SCH (10:09)
[2018-04-24] MEDS: DHA PO SCH ×2 (10:09→17:23)
[2018-04-24] MEDS: [UNRECOGNIZED DRUG - OTHER] PO SCH (10:10)
[2018-04-24] MEDS: METHYL B12 SL SCH ×2 (10:10→17:23)
--- NOTE | 2018-04-24 16:15 | PN ---
DATE: 04/24/2018 SUBJECTIVE: This 62-year-old female remains hospitalized with Pseudomonas urosepsis and low-grade fever was noted earlier this morning. She remains weak and deconditioned and is being evaluated for Transitional Care Rehab for reconditioning, gait training, physical therapy, occupational therapy as well as parenteral antibiotics. At present, she is out of bed to chair. She denies any chest pain or shortness of breath. PHYSICAL EXAMINATION VITAL SIGNS: Her temperature is 99.4, respirations 20, pulse 79 and pulse ox 97% with a blood pressure of 143/75 and a normal sinus rhythm on the geotechnical field technician. HEENT: Head: Normocephalic, atraumatic. Eyes: No icterus. Ears: Clear. Throat: Noninjected. NECK: Supple. HEART: Regular S1 and S2. LUNGS: Clear. ABDOMEN: Obese. EXTREMITIES: No edema. SKIN: No rash. VASCULAR: Legs warm to touch. PSYCHOLOGICAL: Alert. NEUROLOGICAL: Deconditioned. LABORATORY DATA: White count 5800, hemoglobin 9.6, hematocrit 29.9, platelets 308,000. Sodium 138, K 4.6, chloride 106, bicarb 23, BUN 27, creatinine 2.2. Estimated GFR 22 mL per minute. Random blood sugar of 114. Phosphorous 8.9. Bilirubin 0.4, AST 22, ALT 17 and alkaline phosphatase 63. Urine culture showing Pseudomonas aeruginosa, sensitive to meropenem and Cipro. IMPRESSION: A 62-year-old female with Pseudomonas aeruginosa urosepsis and comorbidities of metastatic recurrent uterine cancer, obesity, chronic insomnia, anxiety neurosis, hypertension, iron-deficiency anemia, anemia of chronic disease, hyperlipidemia, fungal skin infection, hyperphosphatemia, degenerative arthritis and chronic obstructive pulmonary disease. PLAN: The plan at present is to continue Xopenex, Ultracet, Tylenol, Procardia, PhosLo, nitroglycerin ointment p.r.n. accelerated hypertension and miconazole topical skin cream. She continues on meropenem, dose reduced for renal failure at 500 mg IV every 12 hours; Lopressor, Lipitor, Feosol, Femara, Catapres, Cardura, Apresoline and Ambien p.r.n. insomnia. She remains on a heart-healthy renal restricted diet. She remains on contact and isolation precaution. She is ordered to have Nepro supplementation and physical therapy for reconditioning and gait training. Based on her clinical progress, she will be readied for discharge to home upon completion of parenteral antibiotics for recurrent urosepsis. Greater than 35 minutes was spent in the care management, review of labs, orders, x-rays and discussion of this patient with her nurse, Dinorah Ramirez and social media marketing specialist, Ravinder Li. Luisa Pa MD MTDD
[2018-04-24] MEDS: [UNRECOGNIZED DRUG - OTHER] PO SCH (17:23)
--- NOTE | 2018-04-24 19:23 | CP.PCM.PN ---
Subjective - Date & Time of Evaluation Date of Evaluation: 04/24/18 Time of Evaluation: 18:00 - Subjective Subjective: Infectious Disease Follow Up: April 24, 2018 62 yo female with known history of metastatic uterine carcinoma. Recent [place] [facility] [place] with ESBL Klebsiella. The patient is complaining of fevers and chills for the past 48 hours. Extensive past medical history of Obesity, hypertension, anemia, hyperlipidemia, GERDs, bilateral hydronephrosis with replaced bilateral urethral stents, chronic renal disease stage III, degenerative arthritis, and COPD. The patient is growing gram negative rods of 50,000-100,000 CFU/ml. Maintaining meropenem until culture results return. Patient feeling better. Culture results showing ESBL+ Pseudomonas. The patient is showing sensitivity to Meropenem and Cipro. ON Meropenem currently. Objective - Vital Signs/Intake and Output Vital Signs (last 24 hours): Temp Pulse Resp BP Pulse Ox 98.5 F 74 20 124/66 100 04/24/18 16:37 04/24/18 18:00 04/24/18 16:37 04/24/18 17:24 04/24/18 16:37 Intake and Output: 04/24/18 04/25/18 18:59 06:59 Intake Total 950 Output Total 700 Balance 250 - Medications Medications: Current Medications Acetaminophen (Tylenol 325mg Tab) 650 mg PO Q6H PRN PRN Reason: Fever >100.4 F Atorvastatin Calcium (Lipitor) 10 mg PO DIN [facility] Last Admin: 04/24/18 17:23 Dose: 10 mg Calcium Acetate (Phoslo) 667 mg PO WM [facility] Last Admin: 04/24/18 17:24 Dose: 667 mg Clonidine HCl (Catapres) 0.1 mg PO DAILY [facility] Last Admin: 04/24/18 10:04 Dose: 0.1 mg Doxazosin Mesylate (Cardura) 2 mg PO DAILY [facility] Last Admin: 04/24/18 10:03 Dose: 2 mg Ferrous Sulfate (Feosol) 324 mg PO DAILY [facility] Last Admin: 04/24/18 10:05 Dose: 324 mg Home Med (Home Med) 1 unit PO DAILY [facility] Last Admin: 04/24/18 10:08 Dose: 1 unit Home Med (Home Med) 1 unit PO DAILY [facility] Last Admin: 04/24/18 10:10 Dose: 1 unit Home Med (Home Med) 2 unit PO 1000 [facility] Last Admin: 04/24/18 10:09 Dose: 2 unit Home Med (Home Med) 1 unit PO 1800 [facility] Last Admin: 04/24/18 17:23 Dose: 1 unit Home Med (Home Med) 1 unit PO DAILY [facility] Last Admin: 04/24/18 10:08 Dose: 1 unit Home Med (Home Med) 0 unit SL BID [facility] Last Admin: 04/24/18 17:23 Dose: 1 unit Hydralazine HCl (Apresoline) 10 mg PO Q8 [facility] Last Admin: 04/24/18 13:26 Dose: Not Given Meropenem 500 mg/ Sodium (Chloride) 50 mls @ 100 mls/hr IVPB Q12 [facility] PRN Reason: Protocol Last Admin: 04/24/18 10:06 Dose: 100 mls/hr Letrozole (Femara) 2.5 mg PO DAILY [facility] Last Admin: 04/24/18 10:04 Dose: 2.5 mg Levalbuterol HCl (Xopenex) 1.25 mg I[facility] [id number] PRN PRN Reason: Shortness of Breath Metoprolol Tartrate (Lopressor) 150 mg PO BID [facility] Last Admin: 04/24/18 17:24 Dose: 150 mg Miconazole Nitrate (Miconazole 2% Cream) 1 ea TOP BID [facility] Last Admin: 04/24/18 17:24 Dose: Not Given Nifedipine (Procardia Xl) 90 mg PO DAILY [facility] Last Admin: 04/24/18 10:07 Dose: 90 mg Nitroglycerin (Nitro-Bid 2% Oint) 1 ea TOP Q4H PRN PRN Reason: accelerated hypertension Tramadol/Acetaminophen (Ultracet 37.5/325 Mg) 1 tab PO Q6H PRN PRN Reason: severe pain Last Admin: 04/24/18 05:06 Dose: 1 tab Zolpidem Tartrate (Ambien) 5 mg PO HS PRN; Protocol PRN Reason: Insomnia Last Admin: 04/23/18 21:30 Dose: 5 mg - Labs Labs: 04/21/18 06:30 04/23/18 05:00 PT 13.0 SECONDS (9.4-12.5) H 04/20/18 02:00 INR 1.14 04/20/18 02:00 APTT 28.2 Seconds (25.1-36.5) 04/20/18 02:00 - Constitutional Appears: Non-toxic, No Acute Distress, Chronically Ill - Head Exam Head Exam: ATRAUMATIC, NORMOCEPHALIC - Eye Exam Eye Exam: EOMI, PERRL Pupil Exam: NORMAL ACCOMODATION, PERRL - ENT Exam ENT Exam: Mucous Membranes Moist, Normal External Ear Exam, TM's Normal Bilaterally - Neck Exam Neck Exam: Full ROM, Normal Inspection - Respiratory Exam Respiratory Exam: Clear to Ausculation Bilateral, NORMAL BREATHING PATTERN. absent: Rales, Rhonchi, Wheezes - Cardiovascular Exam Cardiovascular Exam: REGULAR RHYTHM, RRR, +S1, +S2 - GI/Abdominal Exam GI & Abdominal Exam: Soft, Normal Bowel Sounds. absent: Distended, Tenderness - Extremities Exam Extremities Exam: Full ROM, Normal Inspection - Neurological Exam Neurological Exam: Alert, Awake, CN II-XII Intact, Oriented x3 - Psychiatric Exam Psychiatric exam: Normal Affect, Normal Mood - Skin Skin Exam: Intact, Normal Color Assessment and Plan - Assessment and Plan (Free Text) Assessment: 62 yo female with fevers and chills who was in [facility] about 3-4 weeks ago for UTI with ESBL+ Klebsiella. Again presenting with fevers and chills. Patient with multiple medical issues including recurrent metastatic uterine carcinoma. Will start Meropenem until cultures return. Supportive care. Urine cultures showing gram negative rods 50,000-100,000 CFU/ml. Awaiting identification and sensitivities. Patient feeling better. ESBL+ Pseudomonas growth with sensitivities to Meropenem and Cipro. Consider up to 5-7 days of Meropenem then switch to oral Cipro for additional 10 days of therapy. Cipro for 500mg PO BID. Fungal rash in intertriginous areas. Topical treatment. Thank you for allowing me to participate in the care of the patient, we will follow with you.
[2018-04-25] MEDS: TraMADol/Apap 37.5/325 mg Tab PO PRN (08:24)
[2018-04-25] MEDS: Miconazole 2% Cream(30 gm) TOP SCH ×2 (09:02→17:42)
[2018-04-25] MEDS: Meropenem 500 MG in Sodium Chloride 0.9% 50 ML IVPB SCH ×2 (09:02→21:39)
[2018-04-25] MEDS: NIFEdipine 90 mg ER Tab PO SCH (09:03)
[2018-04-25] MEDS: DHA PO SCH ×2 (09:04→17:34)
[2018-04-25] MEDS: [UNRECOGNIZED DRUG - OTHER] PO SCH (09:04)
[2018-04-25] MEDS: [UNRECOGNIZED DRUG - OTHER] PO SCH (09:04)
[2018-04-25] MEDS: [UNRECOGNIZED DRUG - OTHER] PO SCH (09:05)
[2018-04-25] MEDS: METHYL B12 SL SCH ×2 (09:05→17:33)
[2018-04-25] MEDS: [UNRECOGNIZED DRUG - OTHER] PO SCH (17:34)
--- NOTE | 2018-04-25 17:45 | CP.PCM.PN ---
Subjective - Date & Time of Evaluation Date of Evaluation: 04/25/18 Time of Evaluation: 16:30 - Subjective Subjective: Infectious Disease Follow Up: April 25, 2018 62 yo female with known history of metastatic uterine carcinoma. [place] [facility] [place] with ESBL Klebsiella. The patient is complaining of fevers and chills for the past 48 hours. Extensive past medical history of Obesity, hypertension, anemia, hyperlipidemia, GERDs, bilateral hydronephrosis with replaced bilateral urethral stents, chronic renal disease stage III, degenerative arthritis, and COPD. The patient is growing gram negative rods of 50,000-100,000 CFU/ml. Maintaining meropenem until culture results return. Patient feeling better. Culture results showing ESBL+ Pseudomonas. The patient is showing sensitivity to Meropenem and Cipro. ON Meropenem currently. Day 6 of meropenem. Objective - Vital Signs/Intake and Output Vital Signs (last 24 hours): Temp Pulse Resp BP Pulse Ox 98.5 F 66 20 122/64 96 04/25/18 08:29 04/25/18 14:00 04/25/18 08:29 04/25/18 13:41 04/25/18 08:29 Intake and Output: 04/25/18 04/25/18 06:59 18:59 Intake Total 490 Output Total 600 Balance -110 - Medications Medications: Current Medications Acetaminophen (Tylenol 325mg Tab) 650 mg PO Q6H PRN PRN Reason: Fever >100.4 F Atorvastatin Calcium (Lipitor) 10 mg PO DIN [facility] Last Admin: 04/24/18 17:23 Dose: 10 mg Calcium Acetate (Phoslo) 667 mg PO WM [facility] Last Admin: 04/25/18 12:01 Dose: 667 mg Clonidine HCl (Catapres) 0.1 mg PO DAILY [facility] Last Admin: 04/25/18 09:04 Dose: 0.1 mg Doxazosin Mesylate (Cardura) 2 mg PO DAILY [facility] Last Admin: 04/25/18 09:03 Dose: 2 mg Ferrous Sulfate (Feosol) 324 mg PO DAILY [facility] Last Admin: 04/25/18 09:04 Dose: 324 mg Home Med (Home Med) 1 unit PO DAILY [facility] Last Admin: 04/25/18 09:04 Dose: 1 unit Home Med (Home Med) 1 unit PO DAILY [facility] Last Admin: 04/25/18 09:05 Dose: 1 unit Home Med (Home Med) 2 unit PO 1000 [facility] Last Admin: 04/25/18 09:04 Dose: 2 unit Home Med (Home Med) 1 unit PO 1800 [facility] Last Admin: 04/24/18 17:23 Dose: 1 unit Home Med (Home Med) 1 unit PO DAILY [facility] Last Admin: 04/25/18 09:04 Dose: 1 unit Home Med (Home Med) 0 unit SL BID [facility] Last Admin: 04/25/18 09:05 Dose: 1 unit Hydralazine HCl (Apresoline) 10 mg PO Q8 [facility] Last Admin: 04/25/18 13:41 Dose: 10 mg Meropenem 500 mg/ Sodium (Chloride) 50 mls @ 100 mls/hr IVPB Q12 [facility] PRN Reason: Protocol Last Admin: 04/25/18 09:02 Dose: 100 mls/hr Letrozole (Femara) 2.5 mg PO DAILY [facility] Last Admin: 04/25/18 09:03 Dose: 2.5 mg Levalbuterol HCl (Xopenex) 1.25 mg IH [id number] PRN PRN Reason: Shortness of Breath Metoprolol Tartrate (Lopressor) 150 mg PO BID [facility] Last Admin: 04/25/18 09:03 Dose: 150 mg Miconazole Nitrate (Miconazole 2% Cream) 1 ea TOP BID [facility] Last Admin: 04/25/18 09:02 Dose: Not Given Nifedipine (Procardia Xl) 90 mg PO DAILY [facility] Last Admin: 04/25/18 09:03 Dose: 90 mg Nitroglycerin (Nitro-Bid 2% Oint) 1 ea TOP Q4H PRN PRN Reason: accelerated hypertension Tramadol/Acetaminophen (Ultracet 37.5/325 Mg) 1 tab PO Q6H PRN PRN Reason: severe pain Last Admin: 04/25/18 08:24 Dose: 1 tab Zolpidem Tartrate (Ambien) 5 mg PO HS PRN; Protocol PRN Reason: Insomnia Last Admin: 04/23/18 21:30 Dose: 5 mg - Labs Labs: 04/21/18 06:30 04/23/18 05:00 PT 13.0 SECONDS (9.4-12.5) H 04/20/18 02:00 INR 1.14 04/20/18 02:00 APTT 28.2 Seconds (25.1-36.5) 04/20/18 02:00 - Constitutional Appears: Non-toxic, No Acute Distress, Chronically Ill - Head Exam Head Exam: ATRAUMATIC, NORMOCEPHALIC - Eye Exam Eye Exam: EOMI, PERRL Pupil Exam: NORMAL ACCOMODATION, PERRL - ENT Exam ENT Exam: Mucous Membranes Moist, Normal External Ear Exam, TM's Normal Bilaterally - Neck Exam Neck Exam: Full ROM, Normal Inspection - Respiratory Exam Respiratory Exam: Clear to Ausculation Bilateral, NORMAL BREATHING PATTERN. absent: Rales, Rhonchi, Wheezes - Cardiovascular Exam Cardiovascular Exam: REGULAR RHYTHM, RRR, +S1, +S2 - GI/Abdominal Exam GI & Abdominal Exam: Soft, Normal Bowel Sounds. absent: Distended, Tenderness - Extremities Exam Extremities Exam: Full ROM, Normal Inspection - Neurological Exam Neurological Exam: Alert, Awake, CN II-XII Intact, Oriented x3 - Psychiatric Exam Psychiatric exam: Normal Affect, Normal Mood - Skin Skin Exam: Intact, Normal Color Assessment and Plan - Assessment and Plan (Free Text) Assessment: 62 yo female with fevers and chills who was [place] [facility] [place] ago for UTI with ESBL+ Klebsiella. Again presenting with fevers and chills. Patient with multiple medical issues including recurrent metastatic uterine carcinoma. Will start Meropenem until cultures return. Supportive care. Urine cultures showing gram negative rods 50,000-100,000 CFU/ml. Awaiting identification and sensitivities. Patient feeling better. ESBL+ Pseudomonas growth with sensitivities to Meropenem and Cipro. Consider up to 5-7 days of Meropenem then switch to oral Cipro for additional 10 days of therapy. Cipro for 500mg PO BID. On day 6 of meropenem therapy. Can complete doses tomorrow and discharge with Cipro PO. Fungal rash in intertriginous areas. Topical treatment. Thank you for allowing me to participate in the care of the patient, we will follow with you.
--- NOTE | 2018-04-26 07:38 | PN ---
DATE OF EXAM: 04/25/2018 SUBJECTIVE: This 62-year-old female was examined at her bedside. This case was reviewed in detail with nurse, Sejal Daniels, registered nurse; social media manager, Ravinder Li and Dr. Nilesh Lloyd from Infectious Disease. The patient's is now admitted with recurrent urosepsis with newly identified Pseudomonas aeruginosa in urine culture sensitive to meropenem and ciprofloxacin. As discussed with Dr. Nilesh Lloyd, the patient will complete a minimum of 5 days of parenteral meropenem, then be switched to oral ciprofloxacin 500 mg p.o. b.i.d. to complete an additional 10-day course. As discussed with Ravinder Li, social media manager, the patient did not qualify for transitional care rehab at this point in time and the patient is desirous of discharge to home. She declines any consideration of subacute rehab. She is out of bed to chair. She denies fever, chills, chest pain or shortness of breath. PHYSICAL EXAMINATION: VITAL SIGNS: Temperature was 98.5, respirations 16, pulse 63 and blood pressure 122/64. Pulse ox 96% on room air. HEENT: Head normocephalic, atraumatic. Eyes: No icterus. Ears: Clear. Throat: Noninjected. NECK: Supple. HEART: Regular S1, S2. LUNGS: Clear. ABDOMEN: Obese. No CVA tenderness. No suprapubic tenderness. EXTREMITIES: No clubbing, no cyanosis, no edema. SKIN: No rash. VASCULAR: Legs warm to touch. PSYCHOLOGICAL: Alert. NEURO: Deconditioned, but intact. LABORATORY DATA: White count 5800, hemoglobin 9.6, hematocrit 29.9, platelets 308,000. PT/INR 1.14, PTT 28.2. Sodium 138, K 4.6, chloride 106, bicarb 23, BUN 27, creatinine 2.2, estimated GFR 22 mL per minute, random blood sugar 114, calcium 8.9, bilirubin 0.4, AST 22, ALT 17, alk phos 63. Blood culture: No growth. Urine culture: Pseudomonas aeruginosa sensitive to meropenem and oral ciprofloxacin. IMPRESSION: A 62-year-old female with recurrent urosepsis, now with urinary tract infection showing Pseudomonas aeruginosa and comorbidities of chronic renal failure stage IV, history of obstructive uropathy with recently changed bilateral ureteral stents in the setting of recurrent metastatic uterine cancer and comorbidities of obesity, insomnia, chronic hypertension, anemia of chronic disease, iron-deficiency anemia, hyperlipidemia, hyperphosphatemia, degenerative arthritis and chronic obstructive pulmonary disease. PLAN: The plan is discussed with the patient, nursing, social media manager and case management will be to complete 5 days of parenteral IV meropenem and then ready the patient for discharge to home to complete her 10-day course of oral ciprofloxacin. At present, she continues on p.r.n. Ambien, oral hydralazine, Cardura, clonidine, Femara, Feosol, Lipitor, Lopressor, nitro paste p.r.n. accelerated hypertension, miconazole topical cream for fungal dermatitis, oral PhosLo, Procardia XL, Tylenol, Ultracet and Xopenex inhalational therapy. She continues on a heart-healthy renal bland diet. She is ordered to have physical therapy for ambulation safety. All of the above was discussed with the patient and staff for greater than 35 minutes. All questions were answered. Luisa Pa MD MTDD
[2018-04-26] MEDS: TraMADol/Apap 37.5/325 mg Tab PO PRN (08:58)
[2018-04-26] MEDS: [UNRECOGNIZED DRUG - OTHER] PO SCH (09:03)
[2018-04-26] MEDS: [UNRECOGNIZED DRUG - OTHER] PO SCH (09:04)
[2018-04-26] MEDS: DHA PO SCH (09:04)
[2018-04-26] MEDS: [UNRECOGNIZED DRUG - OTHER] PO SCH (09:05)
[2018-04-26] MEDS: NIFEdipine 90 mg ER Tab PO SCH (09:06)
[2018-04-26] MEDS: Meropenem 500 MG in Sodium Chloride 0.9% 50 ML IVPB SCH (09:06)
[2018-04-26] MEDS: METHYL B12 SL SCH (09:08)
[2018-04-26] MEDS: Miconazole 2% Cream(30 gm) TOP SCH (09:08)
[2018-04-26 09:17] VITALS: BP 148/68
[2018-04-26 09:34] VITALS: TEMP 98.3; O2SAT 97
[2018-04-26 12:21] VITALS: PULSE 68
--- NOTE | 2018-04-26 15:07 | CP.PCM.PN ---
Subjective - Date & Time of Evaluation Date of Evaluation: 04/26/18 Time of Evaluation: 12:00 - Subjective Subjective: Infectious Disease Follow Up: April 26, 2018 62 yo female with known history of metastatic uterine carcinoma. [place] [facility] [place] with ESBL Klebsiella. The patient is complaining of fevers and chills for the past 48 hours. Extensive past medical history of Obesity, hypertension, anemia, hyperlipidemia, GERDs, bilateral hydronephrosis with replaced bilateral urethral stents, chronic renal disease stage III, degenerative arthritis, and COPD. The patient is growing gram negative rods of 50,000-100,000 CFU/ml. Maintaining meropenem until culture results return. Patient feeling better. Culture results showing ESBL+ Pseudomonas. The patient is showing sensitivity to Meropenem and Cipro. On Meropenem currently. Day 7 of meropenem. Objective - Vital Signs/Intake and Output Vital Signs (last 24 hours): Temp Pulse Resp BP Pulse Ox 98.3 F 68 20 148/68 97 04/26/18 06:00 04/26/18 10:00 04/26/18 06:00 04/26/18 09:07 04/26/18 06:00 Intake and Output: 04/26/18 04/26/18 06:59 18:59 Intake Total 300 Output Total 400 Balance -100 - Labs Labs: 04/21/18 06:30 04/23/18 05:00 PT 13.0 SECONDS (9.4-12.5) H 04/20/18 02:00 INR 1.14 04/20/18 02:00 APTT 28.2 Seconds (25.1-36.5) 04/20/18 02:00 - Constitutional Appears: Non-toxic, No Acute Distress, Chronically Ill - Head Exam Head Exam: ATRAUMATIC, NORMOCEPHALIC - Eye Exam Eye Exam: EOMI, PERRL Pupil Exam: NORMAL ACCOMODATION, PERRL - ENT Exam ENT Exam: Mucous Membranes Moist, Normal External Ear Exam, TM's Normal Bilaterally - Neck Exam Neck Exam: Full ROM, Normal Inspection - Respiratory Exam Respiratory Exam: Clear to Ausculation Bilateral, NORMAL BREATHING PATTERN. absent: Rales, Rhonchi, Wheezes - Cardiovascular Exam Cardiovascular Exam: REGULAR RHYTHM, RRR, +S1, +S2 - GI/Abdominal Exam GI & Abdominal Exam: Soft, Normal Bowel Sounds. absent: Distended, Tenderness - Extremities Exam Extremities Exam: Full ROM, Normal Inspection - Neurological Exam Neurological Exam: Alert, Awake, CN II-XII Intact, Oriented x3 - Psychiatric Exam Psychiatric exam: Normal Affect, Normal Mood - Skin Skin Exam: Intact, Normal Color Assessment and Plan - Assessment and Plan (Free Text) Assessment: 62 yo female with fevers and chills who was in [facility] about 3-4 weeks ago for UTI with ESBL+ Klebsiella. Again presenting with fevers and chills. Patient with multiple medical issues including recurrent metastatic uterine carcinoma. Will start Meropenem until cultures return. Supportive care. Urine cultures showing gram negative rods 50,000-100,000 CFU/ml. Awaiting identification and sensitivities. Patient feeling better. ESBL+ Pseudomonas growth with sensitivities to Meropenem and Cipro. Consider up to 5-7 days of Meropenem then switch to oral Cipro for additional 10 days of therapy. Cipro for 500mg PO BID. On day 7 of meropenem therapy. Can complete doses today and discharge with Cipro PO. Fungal rash in intertriginous areas. Topical treatment. Thank you for allowing me to participate in the care of the patient, we will follow with you.
--- NOTE | 2018-04-27 00:39 | DS ---
DATE OF EXAM; 04/26/2018 FINAL DIAGNOSES: Pseudomonas aeruginosa urinary tract infection with urosepsis, history of metastatic recurrent uterine cancer, history of chronic renal failure stage 3, bilateral ureteral stents, anemia of chronic disease, chronic hypertension, obesity, hyperlipidemia, peptic ulcer disease with gastroesophageal reflux disease, degenerative arthritis, chronic obstructive pulmonary disease. DISPOSITION: Home. The patient is discharged on a 2 g sodium, heart-healthy diet. I have made contact with her oncologist, Dr. Kathy Coffman, oncologist at [facility] in [place], [place]. The patient will have a followup with this clinician within the next 7-10 days. CONSULTANTS: Dr. Nilesh Lloyd from Infectious Disease. DISCHARGE MEDICATIONS: Hydralazine 10 mg p.o. every 8 hours, clonidine 0.1 mg p.o. daily, Zocor 20 mg p.o. daily, Zantac 150 mg p.o. every 12 hours p.r.n. dyspepsia, Procardia XL 90 mg p.o. daily, multivitamin 1 tablet daily, Lopressor 200 mg p.o. every 12 hours, Xopenex inhalational therapy every 6 hours, Femara 2.5 mg p.o. daily, Feosol 324 mg p.o. daily, Cardura 4 mg p.o. at bedtime, ProAir 2 puffs every 6 hours p.r.n. shortness of breath, and ciprofloxacin 500 mg p.o. b.i.d. #20, no refills. SUMMARY: This 62-year-old female was admitted to [facility] with fever, chills, was found to have Pseudomonas aeruginosa urosepsis, which was treated with six full days of IV meropenem, dose reduced for renal failure and then the patient was switched to oral ciprofloxacin to complete an additional 10-day course of 500 mg p.o. b.i.d. At the time of discharge, the patient was out of bed to chair, able to ambulate with assistance and denying any fever, chills, chest pain, or shortness of breath. Temperature was 98.3, respirations 20, pulse 67, and blood pressure 148/68 with a pulse ox of 97% on room air. White count 5800, hemoglobin 9.6, hematocrit 29.9, platelets 308,000. PT/INR 1.14, PTT 28.2. Sodium 138, K 4.6, chloride 106, bicarb 23, BUN 27, creatinine 2.2. Estimated GFR 22 mL per minute, sugar 114, calcium 8.9. Bilirubin 0.4, AST 22, ALT 17, alk phos 63. Microbiology studies showed blood culture with no growth but urine with Pseudomonas aeruginosa, sensitive to meropenem and ciprofloxacin. The patient will have visiting nurse and home physical therapy and be monitored by her oncologist as an outpatient. Greater than 35 minutes was spent in the care management, review of labs, orders, x-rays, and discussion of this patient with herself, nursing, her at bedside, Dr. Nilesh Lloyd, and Dr. Kathy Coffman. All questions were answered. Luisa Pa MD MTDD
== END 2018-04-26 13:48 | disposition home health service (06) | DRG 690 ==
LOC: ED 00:42 → ERH 03:59 → OBSVTOIN 11:03 → ERH 12:20 → 3RSO 13:25
PROVIDERS: ADMIT Internal Medicine; ATTEND Internal Medicine
DX: N39.0 Urinary tract infection, site not specified (principal); N18.4 Chronic kidney disease, stage 4 (severe); C78.7 Secondary malignant neoplasm of liver and intrahepatic bile duct; C55 Malignant neoplasm of uterus, part unspecified; B96.5 Pseudomonas (aeruginosa) (mallei) (pseudomallei) as the cause of diseases classified elsewhere; I12.9 Hypertensive chronic kidney disease with stage 1 through stage 4 chronic kidney disease, or unspecified chronic kidney disease; K21.9 Gastro-esophageal reflux disease without esophagitis; J44.9 Chronic obstructive pulmonary disease, unspecified; M19.90 Unspecified osteoarthritis, unspecified site; B36.9 Superficial mycosis, unspecified; D63.8 Anemia in other chronic diseases classified elsewhere; D50.9 Iron deficiency anemia, unspecified; E78.00 Pure hypercholesterolemia, unspecified; E78.5 Hyperlipidemia, unspecified; F41.1 Generalized anxiety disorder; E83.39 Other disorders of phosphorus metabolism; F51.04 Psychophysiologic insomnia; E66.9 Obesity, unspecified; Z68.39 Body mass index [BMI] 39.0-39.9, adult; Z87.442 Personal history of urinary calculi; Z87.11 Personal history of peptic ulcer disease

== ENCOUNTER 2018-05-13 21:37 | Inpatient (IN) | payer BC ==
[2018-05-13 21:57] VITALS: BMI 39.9
--- NOTE | 2018-05-13 21:57 | ED PDOC ---
Arrival/HPI - General Historian: Patient - History of Present Illness Narrative History of Present Illness (Text): 05/13/18 21:49 62 y/o female, pmh including htn/hld/anemia with CKD3/copd/metastatic uterine carcinoma under chemotherapy/PUD/urosepsis, nkda, biba c/o fever and chills x 1 day. Pt. has been having chills/fever/fatigue at home started today, Tmax 101F, no runny nose/cough or URI symptoms, no abdominal pain, no rash, no dizziness, no recent traveling, no palpitation, recently completed the course of the cipro 500mg po bid x 10 days today, no other medical or psychological complaints. <Jose Montalvo - Last Filed: 05/14/18 01:36> <Emmanuel Steele - Last Filed: 05/14/18 19:40> - General Time Seen by Provider: 05/13/18 21:45 Past Medical History - Provider Review Nursing Documentation Reviewed: Yes - Cardiac Hx Cardiac Disorders: Yes Hx Hypertension: Yes - Pulmonary Hx Chronic Obstructive Pulmonary Disease (COPD): Yes - Neurological Hx Neurological Disorder: No - HEENT Hx HEENT Disorder: No - Renal Hx Renal Failure: Yes - Endocrine/Metabolic Hx Endocrine Disorders: No - Hematological/Oncological Hx Blood Disorders: Yes Hx Cancer: Yes Hx Chemotherapy: Yes (uterine) - Integumentary Other/Comment: skin break down in fold of skin groin, breasts, thigh, - Musculoskeletal/Rheumatological Hx Arthritis: Yes - Gastrointestinal Hx Gastrointestinal Disorders: Yes - Genitourinary/Gynecological Hx Genitourinary Disorders: No Hx Urinary Tract Infection: Yes - Psychiatric Hx Depression: No Hx Emotional Abuse: No Hx Physical Abuse: No Hx Substance Use: No - Surgical History Other/Comment: kidney stent - Anesthesia Hx Anesthesia: Yes Hx Anesthesia Reactions: No Hx Malignant Hyperthermia: No - Suicidal Assessment Feels Threatened In Home Enviroment: No <Jose Montalvo - Last Filed: 05/14/18 01:36> Family/Social History - Physician Review Nursing Documentation Reviewed: Yes Family/Social History: Unknown Family HX Smoking Status: Never Smoked Hx Alcohol Use: No Hx Substance Use: No Hx Substance Use Treatment: No <Jose Montalvo - Last Filed: 05/14/18 01:36> Allergies/Home Meds <Jose Montalvo - Last Filed: 05/14/18 01:36> <Abimael Steeleont - Last Filed: 05/14/18 19:40> Allergies/Adverse Reactions: Allergies No Known Allergies Allergy (Verified 05/13/18 21:57) Home Medications: Home Meds Medication Instructions Recorded Confirmed NIFEdipine ER [Procardia XL] 90 mg PO DAILY 05/13/18 05/13/18 RX: Atorvastatin [Lipitor] 10 mg PO DAILY 05/13/18 05/13/18 RX: Metoprolol Tartrate [Lopressor] 150 mg PO BID 05/13/18 05/13/18 RX: Letrozole [Fem[place]] 2[place] [address]/14/18 05/13/18 Review of Systems - Review of Systems Constitutional: Fatigue, Fevers Eyes: absent: Vision Changes ENT: absent: Hearing Changes Respiratory: absent: SOB, Cough Cardiovascular: absent: Chest Pain Gastrointestinal: absent: Abdominal Pain, Nausea, Vomiting Musculoskeletal: absent: Arthralgias, Back Pain, Neck Pain, Joint Swelling, Myalgias Skin: absent: Rash, Pruritis Psychiatric: absent: Anxiety, Depression, Suicidal Ideation <Jose Montalvo - Last Filed: 05/14/18 01:36> Physical Exam - Systems Exam Head: Present: Atraumatic, Normocephalic Pupils: Present: PERRL Extroacular Muscles: Present: EOMI Conjunctiva: Present: Normal Ears: Present: NORMAL TM, Normal Canal. No: Erythema Mouth: Present: Moist Mucous Membranes Pharnyx: No: ERYTHEMA, EXUDATE, TONSILS ENLARGED Nose (External): Present: Atraumatic. No: Abrasion, Contusion, Laceration Nose (Internal): Present: Normal Inspection, No Active Bleeding. No: Rhinorrhea, Septal Hematoma, Epistaxis Neck: Present: Normal Range of Motion, Trachea Midline. No: Meningeal Signs, MIDLINE TENDERNESS, Paraspinal Tenderness, Lymphadenopathy Respiratory/Chest: Present: Clear to Auscultation, Good Air Exchange. No: Respiratory Distress, Accessory Muscle Use, Wheezes, Decreased Breath Sounds, Rales, Retracting, Rhonchi, Tachypneic Cardiovascular: Present: Regular Rate and Rhythm, Normal S1, S2. No: Murmurs Abdomen: No: Tenderness, Distention, Peritoneal Signs, Rebound, Guarding Back: Present: Normal Inspection Upper Extremity: Present: Normal Inspection, Neurovascularly Intact. No: Cyanosis, Edema, Tenderness, Swelling Lower Extremity: Present: Normal Inspection, Neurovascularly Intact. No: Edema, Tenderness, Swelling Neurological: Present: GCS=15, CN II-XII Intact, Speech Normal, Motor Func Grossly Intact, Gait Normal, Memory Normal Skin: Present: Warm, Dry, Normal Color. No: Rashes Psychiatric: Present: Alert, Oriented x 3, Normal Insight, Normal Concentration <Jose Montalvo - Last Filed: 05/14/18 01:36> Vital Signs Temp Pulse Resp BP Pulse Ox 05/14/18 01:15 100.1 F H 60 18 132/76 100 05/14/18 00:14 100.0 F H 05/14/18 00:00 59 L 18 110/57 L 96 05/13/18 22:10 100.7 F H 05/13/18 22:04 100.7 F H 71 18 150/60 96 <Emmanuel Steele - Last Filed: 05/14/18 19:40> Medical Decision Making ED Course and Treatment: 05/13/18 21:58 -Labs/vbg/ua/rapid flu/blood and urine culture -CXR -IVF/tylenol 650mg po -Observe and reassess 05/13/18 23:40 -Chest xray show no active disease or acute changes compared with previous chest xray. -Labs show no acute findings with chronic anemia hgb 9.3 from 9.6, Bun 32 from 27, Creatinine 3.0 from 2.2, GFR 16 from 22 -VBG lactic acid is within normal limit -Rapid flu is negative -UA show +leukocyte/nitrite and wbc, IV meropenem renal dose ordered (last urine culture show +pseudomonas aeroginosa and sensitive to meropenem) -All labs/radiology results discussed with the patient and daughter, agreed to be admitted -Pt. is dehydrated with acute on chronic renal injury, worsening anemia but no black stool or GI discomfort, failure of outpatient UTI. -Paging Dr. aP for admission. 05/13/18 23:51 -I spoke to DR. Pa, discussed about the case/labs/radiology result and vital signs, agreed on the renal dose IV meropenem 500mg IV and keep the fluid at 100cc/hr and tylenol 650mg po qid prn (ordered), request Go on the routine consult which I ordered. She would follow up on the any pending labs/radiology result and the consult. 05/14/18 01:36 -EKG: NSR @ 63 BPM, RBBB, no ST elevation or depression, T wave inversion on the lead III (no cardiopulmonary complaints). - Lab Interpretations I have reviewed the lab results: Yes - RAD Interpretation Radiology Orders: Chest xray: Wallpaper Scraper: Radiologist - EKG Interpretation EKG Interpretation (Text): 05/14/18 01:36 NSR @ 63 BPM, RBBB, no ST elevation or depression, T wave inversion on the lead III. Interpreted by ED Physician: Yes Type: 12 lead EKG <Jose Montalvo - Last Filed: 05/14/18 01:36> - Lab Interpretations Lab Results: 05/13/18 22:15 05/13/18 22:15 Lab Results 05/14/18 07:00: Blood Type A POSITIVE, Antibody Screen Negative, BBK History Checked Patient has bt 05/13/18 23:12: Urine Color Yellow, Urine Appearance Cloudy, Urine pH 6.0, Ur Specific [place] 1.020, Urine Protein 100 H, Urine Glucose (UA) Negative, Urine Ketones Negative, Urine Blood Large H, Urine Nitrate Positive H, Urine Bilirubin Negative, Urine Urobilinogen 0.2, Ur Leukocyte Esterase Large H, Urine RBC 25 - 30, Urine WBC 20 - 25, Ur Epithelial Cells Many, Amorphous Sediment Moderate 05/13/18 22:21: Influenza Typ A,B (EIA) Negative for flu a/b 05/13/18 22:15: PT 13.8 H, INR 1.21, APTT 30.1 05/13/18 22:15: WBC 6.5, RBC 3.11 L, Hgb 9.3 L, Hct 29.0 L, MCV 93.2, MCH 29.9, MCHC 32.1, RDW 14.2, Plt Count 381, MPV 8.3, Gran % 73.8 H, Lymph % (Auto) 14.0 L, [place] % (Auto) 8.4 H, Eos % (Auto) 3.5, Baso % (Auto) 0.3, Gran # 4.81, Lymph # (Auto) 0.9 L, [place] # (Auto) 0.6, Eos # (Auto) 0.2, Baso # (Auto) 0.02 05/13/18 22:15: Sodium 137, Chloride 105, Potassium 4.4, Carbon Dioxide 22, Anion Gap 14, BUN 32 H, Creatinine 3.0 H, Est GFR ( Amer) 19, Est GFR (Non-Af Amer) 16, Random Glucose 154 H, Calcium 8.5, Total Bilirubin 0.3, AST 25, ALT 27, Alkaline Phosphatase 71, Total Protein 7.9, Albumin 3.6, Globulin 4.3, Albumin/Globulin Ratio 0.8 L 05/13/18 22:15: pO2 28 L, VBG pH 7.34, VBG pCO2 44.0, VBG HCO3 23.7, VBG Total CO2 25.1, VBG O2 Sat (Calc) 50.1, VBG Base Excess -2.2 L, VBG Potassium 4.3, Sodium 138.0, Chloride 108.0 H, Glucose 158 H, Lactate 1.3, FiO2 21.0, Venous Blood Potassium 4.3 - RAD Interpretation Radiology Orders: 05/13/18 22:05 CHEST PORTABLE [RAD] Stat - Medication Orders Current Medication Orders: Acetaminophen (Tylenol 325mg Tab) 650 mg PO Q6H PRN PRN Reason: Fever >100.4 F Atorvastatin Calcium (Lipitor) 10 mg PO DIN [facility] Last Admin: 05/14/18 17:55 Dose: 10 mg Clonidine HCl (Catapres) 0.1 mg PO BID [facility] Last Admin: 05/14/18 17:55 Dose: 0.1 mg Doxazosin Mesylate (Cardura) 4 mg PO HS [facility] Famotidine (Pepcid) 40 mg PO HS [facility] Ferrous Gluconate (Fergon) 324 mg PO TID [facility] Last Admin: 05/14/18 17:56 Dose: 324 mg Sodium Chloride (Sodium Chloride 0.9%) 1,000 mls @ 100 mls/hr IV .Q10H [facility] Last Admin: 05/14/18 19:31 Dose: Not Given Non-Admin Reason: previous running Comments: previous bag still running Meropenem 500 mg/ Sodium (Chloride) 50 mls @ 100 mls/hr IVPB Q12 [facility]; Protocol Stop: 05/24/18 22:01 Letrozole (Femara) 2.5 mg PO DAILY [facility] Last Admin: 05/14/18 10:39 Dose: 2.5 mg Metoprolol Tartrate (Lopressor) 150 mg PO BRKDIN [facility] Last Admin: 05/14/18 17:56 Dose: 150 mg Nifedipine (Procardia Xl) 90 mg PO DAILY [facility] Last Admin: 05/14/18 10:47 Dose: 90 mg Nitroglycerin (Nitro-Bid 2% Oint) 1 ea TOP Q4H PRN PRN Reason: hypertension Ondansetron HCl (Zofran Inj) 4 mg IVP Q6H PRN PRN Reason: Nausea/Vomiting Discontinued Medications Acetaminophen (Tylenol 325mg Tab) 650 mg PO STAT STA Stop: 05/13/18 22:06 Last Admin: 05/13/18 22:10 Dose: 650 mg MAR Pain/Vitals Document 05/13/18 22:10 (Rec: 05/13/18 23:05 [id number] Vitals Temperature (97.6 F-99.6 F) 100.7 F Temperature Source Rectal Re-Assess: MAR Pain/Vitals Document 05/13/18 23:10 FDE (Rec: 05/14/18 04:48 FDE [id number]) Pain Reassessment Is This A Pain ReAssessment? Yes Sleep Is patient sleeping during reassessment? Yes Meropenem 500 mg/ Sodium (Chloride) 50 mls @ 100 mls/hr IVPB STAT STA; Protocol Stop: 05/14/18 00:09 Last Admin: 05/13/18 23:50 Dose: 100 mls/hr eMAR Start Stop Document 05/13/18 23:50 (Rec: 05/14/18 00:30 [id number]) Intravenous Solution Start Date 05/14/18 Start Time 00:27 <Emmanuel Steele - Last Filed: 05/14/18 19:40> - PA / [employer] / Resident Statement /DO has reviewed & agrees with the documentation as recorded. <Jose Montalvo - Last Filed: 05/14/18 01:36> Disposition/Present on Arrival - Present on Arrival Any Indicators Present on Arrival: No History of DVT/PE: No History of Uncontrolled Diabetes: No Urinary Catheter: No History of Decub. Ulcer: No History Surgical Site Infection Following: None - Disposition Disposition Time: 23:46 Patient Plan: Admission, Telemetry <Jose Montalvo - Last Filed: 05/14/18 01:36> - Disposition Have Diagnosis and Disposition been Completed?: Yes <Emmanuel Steele - Last Filed: 05/14/18 19:40> - Disposition Diagnosis: Acute kidney injury superimposed on CKD, Anemia, Fever, UTI (urinary tract infection), Failure of outpatient treatment Disposition: HOSPITALIZED Patient Problems: Current Active Problems Problem Status Onset Acute kidney injury superimposed on CKD Acute Anemia Acute Failure of outpatient treatment Acute Fever Acute UTI (urinary tract infection) Acute Condition: STABLE
[2018-05-13] MEDS: Sodium Chloride 0.9% 1,000 ML IV SCH (22:20)
[2018-05-13 22:35] LABS: BASO # 0.02 K/mm3 (0.0-2.0); BASO % 0.3 % (0.0-3.0); EOS # 0.2 (0.0-0.7); EOS % 3.5 % (1.5-5.0); GRAN # 4.81 (1.4-6.5); GRAN % 73.8 % (50.0-68.0); HEMOGLOBIN 9.3 g/dL (12.0-16.0); LYMPH # 0.9 (1.2-3.4); MEAN CELL VOLUME 93.2 fl (80.0-105.0); MEAN CORPUSCULAR HEMOGLOBIN 29.9 pg (25.0-35.0); MEAN CORPUSCULAR HGB CONC 32.1 g/dl (31.0-37.0); MEAN PLATELET VOLUME 8.3 fl (7.0-11.0); MONO # 0.6 (0.1-0.6); MONO % 8.4 % (1.0-6.0); RBC 3.11 10^6/uL (3.5-6.1); RED CELL DISTRIBUTION WIDTH 14.2 % (11.5-14.5); WHITE BLOOD COUNT 6.5 10^3/ul (4.5-11.0)
[2018-05-13 22:39] LABS: VENOUS BLOOD GAS BASE EXCESS -2.2 mmol/L (0.0-2.0); VENOUS BLOOD GAS PO2 28 mm/Hg (30-55); VENOUS BLOOD PH 7.34 (7.32-7.43)
[2018-05-13 22:47] LABS: INR 1.21; PARTIAL THROMBOPLASTIN TIME 30.1 Seconds (25.1-36.5); PROTHROMBIN TIME 13.8 SECONDS (9.4-12.5)
[2018-05-13 22:58] LABS: ALB/GLOB RATIO 0.8 (1.1-1.8); ALBUMIN 3.6 g/dL (3.0-4.8); CALCIUM 8.5 mg/dL (8.4-10.5)
[2018-05-13 23:33] LABS: URINE BILIRUBIN NEGATIVE (NEGATIVE); URINE BLOOD LARGE (NEGATIVE); URINE GLUCOSE (UA) NEGATIVE (NEGATIVE); URINE LEUKOCYTE ESTERASE LARGE Leu/uL (NEGATIVE); URINE PROTEIN 100 mg/dL (<30 mg/dL); URINE UROBILINOGEN 0.2 E.U./dL (<1 E.U./dL)
[2018-05-13 23:39] LABS: URINE APPEARANCE CLOUDY (CLEAR); URINE COLOR YELLOW (YELLOW)
[2018-05-13 23:40] LABS: URINE AMORPHOUS SEDIMENT MODERATE; URINE EPITHELIAL CELLS MANY /hpf (0-5); URINE RBC 25 - 30 /hpf (0-2); URINE WBC 20 - 25 /hpf (0-6)
[2018-05-13] MEDS ORDERED: Meropenem 500 MG in Sodium Chloride 0.9% 50 ML IVPB STA (23:40)
--- NOTE | 2018-05-14 09:31 | CARD ---
APPROVED REPORT Date of service: 05/14/2018 EKG Measurement Heart [id number] <Conclusion> Normal sinus rhythm Right bundle branch block LAD NSSTW changes
[2018-05-14] MEDS ORDERED: Nitroglycerin 2% Ointment Foilpak UD TOP PRN (10:13)
[2018-05-14] MEDS ORDERED: NIFEdipine 30 mg ER Tab PO SCH (10:15)
--- NOTE | 2018-05-14 10:15 | RAD ---
Date of service: 05/13/2018 HISTORY: Fever. COMPARISON: 04/20/2018. FINDINGS: LUNGS: No active pulmonary disease. PLEURA: No significant pleural effusion identified, no pneumothorax apparent. CARDIOVASCULAR: No radiographic findings to suggest acute or significant cardiovascular disease. OSSEOUS STRUCTURES: No significant abnormalities. VISUALIZED UPPER ABDOMEN: Normal. OTHER FINDINGS: None. IMPRESSION: No active disease. No significant interval change compared to the prior examination(s).
[2018-05-14] MEDS: NIFEdipine 90 mg ER Tab PO SCH (10:47)
[2018-05-14] MEDS: Sodium Chloride 0.9% 1,000 ML IV SCH ×2 (15:10→19:31)
--- NOTE | 2018-05-14 16:19 | CP.PCM.CON ---
History of Present Illness - History of Present Illness History of Present Illness: Infectious Disease Consultation: May 14, 2018 62 yo female with known history of metastatic uterine carcinoma. The patient is complaining of fevers and chills for the past 24 hours prior to admission. Extensive past medical history of Obesity, hypertension, anemia, hyperlipidemia, GERDs, bilateral hydronephrosis with replaced bilateral urethral stents, chronic renal disease stage III, degenerative arthritis, and COPD. The patient had ESBL+ Pseudomonas with 7 days of IV meropenem then 10 days of oral Cipro on discharge from her last hospitalization earlier this month (discharged 04/26/2018). Patient with history of recurrent UTIs. Patient with fevers up to 100.7 F. PMHx: Uterine Carcinoma with metastatic disease, Obesity, hypertension, anemia, hyperlipidemia, GERDs, bilateral hydronephrosis with replaced bilateral urethral stents, chronic renal disease stage III, degenerative arthritis, and COPD PSHx: Bilateral urethral stents Allergies: NKDA Social Hx: No tobacco, no EtOH, or illicit drug use Active Medications Acetaminophen (Tylenol 325mg Tab) 650 mg PO Q6H PRN PRN Reason: Fever >100.4 F Atorvastatin Calcium (Lipitor) 10 mg PO DIN [facility] Clonidine HCl (Catapres) 0.1 mg PO BID [facility] Last Admin: 05/14/18 10:38 Dose: 0.1 mg Doxazosin Mesylate (Cardura) 4 mg PO HS [facility] Famotidine (Pepcid) 40 mg PO HS [facility] Ferrous Gluconate (Fergon) 324 mg PO TID [facility] Last Admin: 05/14/18 15:23 Dose: 324 mg Sodium Chloride (Sodium Chloride 0.9%) 1,000 mls @ 100 mls/hr IV .Q10H [facility] Last Admin: 05/13/18 22:20 Dose: 100 mls/hr Letrozole (Femara) 2.5 mg PO DAILY [facility] Last Admin: 05/14/18 10:39 Dose: 2.5 mg Metoprolol Tartrate (Lopressor) 150 mg PO BRKDIN [facility] Nifedipine (Procardia Xl) 90 mg PO DAILY [facility] Last Admin: 05/14/18 10:47 Dose: 90 mg Nitroglycerin (Nitro-Bid 2% Oint) 1 ea TOP Q4H PRN PRN Reason: hypertension Ondansetron HCl (Zofran Inj) 4 mg IVP Q6H PRN PRN Reason: Nausea/Vomiting Family Hx: None given ROS: Patient stating fever and chills for the past 2 days. No headaches, dizziness, chest pain, abdominal pain, melena, hematuria, hematemesis, hematochezia, depression, anxiety Past Patient History - Past Social History Smoking Status: Never Smoked - CARDIAC Hx Cardiac Disorders: Yes Hx Hypercholesterolemia: Yes Hx Hypertension: Yes - PULMONARY Hx Respiratory Disorders: Yes Hx Chronic Obstructive Pulmonary Disease (COPD): Yes - NEUROLOGICAL Hx Neurological Disorder: No - HEENT Hx HEENT Problems: Yes (uses reading glasses) - RENAL Hx Chronic Kidney Disease: Yes (ureteral stent) Hx Kidney Stones: Yes Hx Renal Failure: Yes - ENDOCRINE/METABOLIC Hx Endocrine Disorders: No - HEMATOLOGICAL/ONCOLOGICAL Hx Blood Disorders: Yes Hx Cancer: Yes Hx Chemotherapy: Yes (uterine) - INTEGUMENTARY Hx Dermatological Problems: No - MUSCULOSKELETAL/RHEUMATOLOGICAL Hx Falls: Yes - GASTROINTESTINAL Hx Gastrointestinal Disorders: Yes Hx Gastroesophageal Reflux: Yes - GENITOURINARY/GYNECOLOGICAL Hx Genitourinary Disorders: Yes Hx Urinary Tract Infection: Yes - PSYCHIATRIC Hx Substance Use: No - SURGICAL HISTORY Hx Surgeries: Yes (ureteral stent) Hx Cholecystectomy: Yes - ANESTHESIA Hx Anesthesia: Yes Hx Anesthesia Reactions: No Hx Malignant Hyperthermia: No Meds Allergies/Adverse Reactions: Allergies Allergy/AdvReac Type Severity Reaction Status Date / Time No Known Allergies Allergy Verified 05/13/18 21:57 - Medications Medications: Current Medications Acetaminophen (Tylenol 325mg Tab) 650 mg PO Q6H PRN PRN Reason: Fever >100.4 F Atorvastatin Calcium (Lipitor) 10 mg PO DIN [facility] Clonidine HCl (Catapres) 0.1 mg PO BID [facility] Last Admin: 05/14/18 10:38 Dose: 0.1 mg Doxazosin Mesylate (Cardura) 4 mg PO HS [facility] Famotidine (Pepcid) 40 mg PO HS [facility] Ferrous Gluconate (Fergon) 324 mg PO TID [facility] Last Admin: 05/14/18 15:23 Dose: 324 mg Sodium Chloride (Sodium Chloride 0.9%) 1,000 mls @ 100 mls/hr IV .Q10H [facility] Last Admin: 05/13/18 22:20 Dose: 100 mls/hr Letrozole (Femara) 2.5 mg PO DAILY [facility] Last Admin: 05/14/18 10:39 Dose: 2.5 mg Metoprolol Tartrate (Lopressor) 150 mg PO BRKDIN [facility] Nifedipine (Procardia Xl) 90 mg PO DAILY [facility] Last Admin: 05/14/18 10:47 Dose: 90 mg Nitroglycerin (Nitro-Bid 2% Oint) 1 ea TOP Q4H PRN PRN Reason: hypertension Ondansetron HCl (Zofran Inj) 4 mg IVP Q6H PRN PRN Reason: Nausea/Vomiting Physical Exam - Constitutional Appears: Non-toxic, No Acute Distress, Chronically Ill - Head Exam Head Exam: ATRAUMATIC, NORMOCEPHALIC - Eye Exam Eye Exam: EOMI, PERRL Pupil Exam: NORMAL ACCOMODATION, PERRL - ENT Exam ENT Exam: Mucous Membranes Moist, Normal External Ear Exam, TM's Normal Bilaterally - Neck Exam Neck exam: Positive for: Full Rom, Normal Inspection - Respiratory Exam Respiratory Exam: Clear to Auscultation Bilateral, NORMAL BREATHING PATTERN. absent: Rales, Rhonchi, Wheezes - Cardiovascular Exam Cardiovascular Exam: REGULAR RHYTHM, RRR, +S1, +S2 - GI/Abdominal Exam GI & Abdominal Exam: Normal Bowel Sounds, Soft. absent: Distended, Tenderness - Extremities Exam Extremities exam: Positive for: full ROM, normal inspection - Neurological Exam Neurological exam: Alert, CN II-XII Intact, Oriented x3 - Psychiatric Exam Psychiatric exam: Normal Affect, Normal Mood - Skin Skin Exam: Intact, Normal Color Results - Vital Signs Recent Vital Signs: Last Vital Signs Temp 99.9 F H 05/14/18 12:00 Pulse 80 05/14/18 12:00 Resp 18 05/14/18 12:00 BP 169/88 H 05/14/18 12:00 Pulse Ox 99 05/14/18 05:15 - Labs Result Diagrams: 05/13/18 22:15 05/13/18 22:15 Labs: Laboratory Results - last 24 hr 05/13/18 05/13/18 05/13/18 22:15 22:15 22:15 WBC 6.5 RBC 3.11 L Hgb 9.3 L Hct 29.0 L MCV 93.2 MCH 29.9 MCHC 32.1 RDW 14.2 Plt Count 381 MPV 8.3 Gran % 73.8 H Lymph % (Auto) 14.0 L [place] % (Auto) 8.4 H Eos % (Auto) 3.5 Baso % (Auto) 0.3 Gran # 4.81 Lymph # (Auto) 0.9 L [place] # (Auto) 0.6 Eos # (Auto) 0.2 Baso # (Auto) 0.02 PT INR APTT pO2 28 L VBG pH 7.34 VBG pCO2 44.0 VBG HCO3 23.7 VBG Total CO2 25.1 VBG O2 Sat (Calc) 50.1 VBG Base Excess -2.2 L VBG Potassium 4.3 Sodium 138.0 137 Chloride 108.0 H 105 Glucose 158 H Lactate 1.3 FiO2 21.0 Potassium 4.4 Carbon Dioxide 22 Anion Gap 14 BUN 32 H Creatinine 3.0 H Est GFR ( Amer) 19 Est GFR (Non-Af Amer) 16 Random Glucose 154 H Calcium 8.5 Total Bilirubin 0.3 AST 25 ALT 27 Alkaline Phosphatase 71 Total Protein 7.9 Albumin 3.6 Globulin 4.3 Albumin/Globulin Ratio 0.8 L Venous Blood Potassium 4.3 Urine Color Urine Appearance Urine pH Ur Specific [place] Urine Protein Urine Glucose (UA) Urine Ketones Urine Blood Urine Nitrate Urine Bilirubin Urine Urobilinogen Ur Leukocyte Esterase Urine RBC Urine WBC Ur Epithelial Cells Amorphous Sediment Influenza Typ A,B (EIA) Blood Type Antibody Screen BBK History Checked 05/13/18 05/13/18 05/13/18 22:15 22:21 23:12 WBC RBC Hgb Hct MCV MCH MCHC RDW Plt Count MPV Gran % Lymph % (Auto) [place] % (Auto) Eos % (Auto) Baso % (Auto) Gran # Lymph # (Auto) Glenn # (Auto) Eos # (Auto) Baso # (Auto) PT 13.8 H INR 1.21 APTT 30.1 pO2 VBG pH VBG pCO2 VBG HCO3 VBG Total CO2 VBG O2 Sat (Calc) VBG Base Excess VBG Potassium Sodium Chloride Glucose Lactate FiO2 Potassium Carbon Dioxide Anion Gap BUN Creatinine Est GFR ( Amer) Est GFR (Non-Af Amer) Random Glucose Calcium Total Bilirubin AST ALT Alkaline Phosphatase Total Protein Albumin Globulin Albumin/Globulin Ratio Venous Blood Potassium Urine Color Yellow Urine Appearance Cloudy Urine pH 6.0 Ur Specific [place] 1.020 Urine Protein 100 H Urine Glucose (UA) Negative Urine Ketones Negative Urine Blood Large H Urine Nitrate Positive H Urine Bilirubin Negative Urine Urobilinogen 0.2 Ur Leukocyte Esterase Large H Urine RBC 25 - 30 Urine WBC 20 - 25 Ur Epithelial Cells Many Amorphous Sediment Moderate Influenza Typ A,B (EIA) Negative for flu a/b Blood Type Antibody Screen BBK History Checked 05/14/18 07:00 WBC RBC Hgb Hct MCV MCH MCHC RDW Plt Count MPV Gran % Lymph % (Auto) [place] % (Auto) Eos % (Auto) Baso % (Auto) Gran # Lymph # (Auto) Glenn # (Auto) Eos # (Auto) Baso # (Auto) PT INR APTT pO2 VBG pH VBG pCO2 VBG HCO3 VBG Total CO2 VBG O2 Sat (Calc) VBG Base Excess VBG Potassium Sodium Chloride Glucose Lactate FiO2 Potassium Carbon Dioxide Anion Gap BUN Creatinine Est GFR ( Amer) Est GFR (Non-Af Amer) Random Glucose Calcium Total Bilirubin AST ALT Alkaline Phosphatase Total Protein Albumin Globulin Albumin/Globulin Ratio Venous Blood Potassium Urine Color Urine Appearance Urine pH Ur Specific [place] Urine Protein Urine Glucose (UA) Urine Ketones Urine Blood Urine Nitrate Urine Bilirubin Urine Urobilinogen Ur Leukocyte Esterase Urine RBC Urine WBC Ur Epithelial Cells Amorphous Sediment Influenza Typ A,B (EIA) Blood Type A POSITIVE Antibody Screen Negative BBK History Checked Patient has bt Assessment & Plan - Assessment and Plan (Free Text) Assessment: 62 yo female with fevers and chills for 1 day who was [facility] [place] for UTI with ESBL+ Pseudomonas. Patient with multiple medical issues including recurrent metastatic uterine carcinoma. Will start Meropenem until c ultures return. Supportive care. Fungal rash in intertriginous areas. Topical treatment. Thank you for allowing me to participate in the care of the patient, we will follow with you.
[2018-05-14] MEDS: Meropenem 500 MG in Sodium Chloride 0.9% 50 ML IVPB SCH (21:05)
[2018-05-15] MEDS: Sodium Chloride 0.9% 1,000 ML IV SCH ×4 (00:46→23:52)
[2018-05-15] MEDS: Meropenem 500 MG in Sodium Chloride 0.9% 50 ML IVPB SCH ×2 (09:10→21:46)
[2018-05-15] MEDS: NIFEdipine 90 mg ER Tab PO SCH (09:11)
[2018-05-15] MEDS ORDERED: Vancomycin 1gm in NS 250ml 1 GM/250 ML BAG IVPB STA (16:40)
--- NOTE | 2018-05-15 18:36 | CP.PCM.PN ---
Subjective - Date & Time of Evaluation Date of Evaluation: 05/15/18 Time of Evaluation: 17:15 - Subjective Subjective: Infectious Disease Follow Up: May 15, 2018 62 yo female with known history of metastatic uterine carcinoma. The patient is complaining of fevers and chills for the past 24 hours prior to admission. Extensive past medical history of Obesity, hypertension, anemia, hyperlipidemia, GERDs, bilateral hydronephrosis with replaced bilateral urethral stents, chronic renal disease stage III, degenerative arthritis, and COPD. The patient had ESBL+ Pseudomonas with 7 days of IV meropenem then 10 days of oral Cipro on discharge from her last hospitalization earlier this month (discharged 04/26/2018). Patient with history of recurrent UTIs. Patient with fevers up to 100.7 F. Afebrile so far today. Noted temperature down to 97.1 F. Objective - Vital Signs/Intake and Output Vital Signs (last 24 hours): Temp Pulse Resp BP Pulse Ox 97.1 F L 76 19 156/80 H 96 05/15/18 18:00 05/15/18 18:00 05/15/18 18:00 05/15/18 18:00 05/15/18 06:00 Intake and Output: 05/15/18 05/15/18 06:59 18:59 Intake Total 3200 1200 Output Total 1450 Balance 1750 1200 - Medications Medications: Current Medications Acetaminophen (Tylenol 325mg Tab) 650 mg PO Q6H PRN PRN Reason: Fever >100.4 F Last Admin: 05/14/18 21:06 Dose: 650 mg Atorvastatin Calcium (Lipitor) 10 mg PO DIN [facility] Last Admin: 05/15/18 17:23 Dose: 10 mg Clonidine HCl (Catapres) 0.1 mg PO BID [facility] Last Admin: 05/15/18 17:23 Dose: 0.1 mg Doxazosin Mesylate (Cardura) 4 mg PO HS [facility] Last Admin: 05/14/18 21:06 Dose: 4 mg Famotidine (Pepcid) 40 mg PO HS [facility] Last Admin: 05/14/18 21:06 Dose: 40 mg Ferrous Gluconate (Fergon) 324 mg PO TID [facility] Last Admin: 05/15/18 17:23 Dose: 324 mg Sodium Chloride (Sodium Chloride 0.9%) 1,000 mls @ 100 mls/hr IV .Q10H [facility] Last Admin: 05/15/18 09:18 Dose: 100 mls/hr Meropenem 500 mg/ Sodium (Chloride) 50 mls @ 100 mls/hr IVPB Q12 [facility]; Protocol Stop: 05/24/18 22:01 Last Admin: 05/15/18 09:10 Dose: 100 mls/hr Vancomycin HCl (Vancomycin 1gm) 1 gm in 250 mls @ 167 mls/hr IVPB Q12H [facility]; Protocol Letrozole (Femara) 2.5 mg PO DAILY [facility] Last Admin: 05/15/18 09:42 Dose: 2.5 mg Metoprolol Tartrate (Lopressor) 150 mg PO BRKDIN [facility] Last Admin: 05/15/18 17:23 Dose: 150 mg Nifedipine (Procardia Xl) 90 mg PO DAILY [facility] Last Admin: 05/15/18 09:11 Dose: 90 mg Nitroglycerin (Nitro-Bid 2% Oint) 1 ea TOP Q4H PRN PRN Reason: hypertension Ondansetron HCl (Zofran Inj) 4 mg IVP Q6H PRN PRN Reason: Nausea/Vomiting - Labs Labs: 05/13/18 22:15 05/13/18 22:15 PT 13.8 SECONDS (9.4-12.5) H 05/13/18 22:15 INR 1.21 05/13/18 22:15 APTT 30.1 Seconds (25.1-36.5) 05/13/18 22:15 - Constitutional Appears: Non-toxic, No Acute Distress, Chronically Ill - Head Exam Head Exam: ATRAUMATIC, NORMOCEPHALIC - Eye Exam Eye Exam: EOMI, PERRL Pupil Exam: NORMAL ACCOMODATION, PERRL - ENT Exam ENT Exam: Mucous Membranes Moist, Normal External Ear Exam, TM's Normal Bilaterally - Neck Exam Neck Exam: Full ROM, Normal Inspection - Respiratory Exam Respiratory Exam: Clear to Ausculation Bilateral, NORMAL BREATHING PATTERN. absent: Rales, Rhonchi, Wheezes - Cardiovascular Exam Cardiovascular Exam: REGULAR RHYTHM, RRR, +S1, +S2 - GI/Abdominal Exam GI & Abdominal Exam: Soft, Normal Bowel Sounds. absent: Distended, Tenderness - Extremities Exam Extremities Exam: Full ROM, Normal Inspection - Neurological Exam Neurological Exam: Alert, Awake, CN II-XII Intact, Oriented x3 - Psychiatric Exam Psychiatric exam: Normal Affect, Normal Mood - Skin Skin Exam: Intact, Normal Color Assessment and Plan - Assessment and Plan (Free Text) Assessment: 62 yo female with fevers and chills for 1 day who was [place] [facility] [place] for UTI with ESBL+ Pseudomonas. Patient with multiple medical issues including recurrent metastatic uterine carcinoma. Will start Meropenem until cultures return. Supportive care. Fungal rash in intertriginous areas. Topical treatment. UTI with gram negative rods. Thank you for allowing me to participate in the care of the patient, we will follow with you.
[2018-05-15] MEDS ORDERED: Morphine 2 mg/ml ISec IVP STA (20:39)
[2018-05-16] MEDS: Meropenem 500 MG in Sodium Chloride 0.9% 50 ML IVPB SCH ×2 (09:54→23:31)
--- NOTE | 2018-05-16 10:13 | PN ---
DATE: 05/16/2018 SUBJECTIVE: This 62-year-old female was examined at her bedside on 05/15/2018. She remains on the Cardiac Unit. There have been no reports of fever, chills, chest pain or shortness of breath and she is markedly deconditioned and remains on contact precautions. Of note, her blood culture is growing gram-positive cocci and a urine culture is growing E. coli. The patient is being treated at present with IV meropenem and IV vancomycin pending her ID and sensitivity reports and she remains markedly weak and deconditioned. She is in a normal sinus rhythm on the personnel monitor. PHYSICAL EXAMINATION: VITAL SIGNS: On physical exam was noted to have a temperature of 97.1, respirations 19, pulse 54 and blood pressure 160/65, previously 143/68. Pulse ox 98% on room air. HEENT: Head normocephalic, atraumatic. Eyes: No icterus. Ears: Clear. Throat: Noninjected. NECK: Supple. HEART: Regular S1, S2. No pathological rubs, murmurs or gallops. LUNGS: Clear to auscultation. ABDOMEN: Soft. EXTREMITIES: No edema. SKIN: Without rash. NEUROLOGICAL: Intact. PSYCHOLOGICAL: Alert. VASCULAR: Legs warm to touch. NEURO: Deconditioned. LABORATORY DATA: Her microbiology report show urine culture with E. coli. Sensitive to ampicillin, resistant to ciprofloxacin and sensitive to IV meropenem. Her blood culture is showing gram-positive cocci. Identification and sensitivity to follow. IMPRESSION: A 62-year-old female, admitted with urosepsis, history of chronic renal failure stage 3, history of obstructive uropathy with bilateral ureteral stent secondary to metastatic recurrent uterine cancer and comorbidities of obesity, hypertension, iron-deficiency anemia, anemia of chronic disease, hyperlipidemia, peptic ulcer disease with gastroesophageal reflux disease and deconditioning. At present, she continues on IV meropenem, IV vancomycin, Cardura, clonidine, Femara, Fergon, Lipitor, Lopressor, nitroglycerin ointment p.r.n. accelerated hypertension, Pepcid, Procardia XL, gentle IV fluids, Tylenol and Zofran. The patient will be monitored daily. She will have her antibiotics adjusted by Dr. Nilesh Lloyd from Infectious Disease and once all of her microbiology reports are finalized, I will discuss with him the next step regarding her bilateral ureteral stents. Of note, this is her third urinary tract infection, but each time was a different organism including Proteus, Pseudomonas and now Escherichia coli in the urinary tract. Bladder hygeine was discussed with the patient at bedside. Greater than 35 minutes was spent in the care and management, review of labs, orders and x-rays and counseling of this patient today. I did review all of the above in detail with her nurse, Lizbeth Smiley, registered nurse. Luisa Pa MD MTDD
[2018-05-16] MEDS: NIFEdipine 90 mg ER Tab PO SCH (10:58)
[2018-05-16] MEDS: Nystatin 100,000 Units/gm Cream(15 gm) TOP SCH ×2 (10:59→18:01)
[2018-05-16] MEDS: Sodium Chloride 0.9% 1,000 ML IV SCH (11:02)
--- NOTE | 2018-05-16 11:16 | HP ---
DATE OF EXAM: 05/14/2018 HISTORY OF PRESENT ILLNESS: This 62-year-old female was examined at her bedside on the cardiac gibson at [facility] on the morning of 05/14/2018. This case was reviewed in detail with her nurse, Gisele Kwon, registered nurse. The patient was admitted earlier this morning via the [facility] ER. She presented with a fever, chills and significant past medical history of metastatic uterine cancer, recurrent urinary tract infection, history of urosepsis, history of chronic renal failure stage 3, bilateral ureteral stents secondary to obstructive uropathy from her metastatic uterine cancer with history of obesity, hypertension, iron-deficiency anemia, anemia of chronic disease, hyperlipidemia, degenerative arthritis, peptic ulcer disease with GERD and anemia of chronic illness. The patient on the day of admission was experiencing fevers as an outpatient and given her past medical history was advised to come to the [facility] for further evaluation of the above. She follows with oncologist, Dr. Kathy Oquendo, integrated marketing intern oncologist at [facility]. MEDICATIONS: Her outpatient medications include Lipitor, Procardia XL, Femara, ferrous sulfate, Pepcid, Cardura, clonidine and Lopressor. ALLERGIES: SHE HAS NO KNOWN ALLERGIES TO MEDICATION. SOCIAL HISTORY: She is a retired homemaker. She is a nondrinker, nonsmoker, non IV drug misuser. FAMILY HISTORY: Noncontributory. REVIEW OF SYSTEMS: Constitutional review: She had fever and chills for the past 24 hours. On head review, no headache or seizure. Eyes review, no change in visual acuity. Ears review, no hearing loss. Throat review, no swallowing difficulty. Neck review, no stiffness. Cardiac review has chronic hypertension. Pulmonary: No cough. No hemoptysis. GI: No hematemesis. No melena. : No dysuria. Skin: No rash. Vascular: No claudication. Psychological: No knowledge of depression. Endocrinological: She has hyperlipidemia. PHYSICAL EXAMINATION: VITAL SIGNS: She was in a normal sinus rhythm with a temperature of 99.9, respirations 18, pulse 80 and blood pressure 169/88. Her pulse ox was 99% on room air. In the emergency room, she was noted to have a fever of 100.1. HEENT: Head normocephalic, atraumatic. Eyes: No icterus. Ears: Clear. Throat: Noninjected. NECK: Supple. HEART: Regular S1, S2. No pathological rubs, murmurs or gallops. LUNGS: Clear. ABDOMEN: Obese. No palpable organomegaly. No rebound. No guarding. No tenderness. No CVA tenderness. EXTREMITIES: No edema. SKIN: Without rash. NEUROLOGICAL: Deconditioned. VASCULAR: Legs warm to touch. PSYCHOLOGICAL: Alert. SKIN: No active ulcers. LABORATORY DATA: White count 6500, hemoglobin 9.3, hematocrit 29, platelets 381,000. PT/INR 1.21, PTT 30.1. Sodium 137, K 4.4, chloride 105, bicarb 22, BUN 32, creatinine 3, random blood sugar 154, calcium 8.5, bilirubin 0.3, AST 25, ALT 27, alk phos 71. Urinalysis showed 20-25 white blood cells per high-power field, positive nitrites. Influenza A and B serologies were negative. Chest x-ray was reviewed, it showed no pulmonary infiltrates, no congestive heart failure, no pleural effusions, no pneumothorax. EKG was reviewed. It shows a normal sinus rhythm with nonspecific ST-T wave changes. IMPRESSION: A 62-year-old female with recurrent fever, rule out urosepsis, history of metastatic uterine cancer with comorbidities of obesity, hypertension, hyperlipidemia, anemia of chronic disease, iron-deficiency anemia, peptic ulcer disease with gastroesophageal reflux disease, degenerative arthritis and history of chronic renal failure stage 3, bilateral hydronephrosis, chronic urinary ureteral stents that were recently changed by Dr. Yadiel Weinberg from Urology. PLAN: The plan at present is to admit this patient to the cardiac unit. She will be continued on Cardura, Clonidine, Femara, Fergon, Lipitor, Lopressor, nitroglycerin p.r.n. accelerated hypertension, Pepcid, Procardia XL, IV fluid, Tylenol, IV meropenem, Zofran p.r.n. nausea and vomiting. She is ordered to have blood and urine cultures, a consultation with Dr. Nilesh Lloyd, a renal heart-healthy diet and physical therapy for ambulation safety. Greater than 75 minutes was spent in the care and management, review of labs, orders and x-rays and discussion of this patient with herself, family, nursing and co-consultants and emergency room physician, Dr. Cedric Benitez. All questions were answered. Luisa Pa MD KEO
[2018-05-16] MEDS: Vancomycin 1gm in NS 250ml 1 GM/250 ML BAG IVPB SCH ×2 (12:00→21:44)
[2018-05-16] MEDS: TraMADol/Apap 37.5/325 mg Tab PO PRN ×2 (14:33→23:31)
--- NOTE | 2018-05-16 17:16 | CP.PCM.PN ---
Subjective - Date & Time of Evaluation Date of Evaluation: 05/16/18 Time of Evaluation: 16:15 - Subjective Subjective: Infectious Disease Follow Up: May 16, 2018 62 yo female with known history of metastatic uterine carcinoma. The patient is complaining of fevers and chills for the past 24 hours prior to admission. Extensive past medical history of Obesity, hypertension, anemia, hyperlipidemia, GERDs, bilateral hydronephrosis with replaced bilateral urethral stents, chronic renal disease stage III, degenerative arthritis, and COPD. The patient had ESBL+ Pseudomonas with 7 days of IV meropenem then 10 days of oral Cipro on discharge from her last hospitalization earlier this month (discharged 04/26/2018). Patient with history of recurrent UTIs. Patient with fevers up to 100.7 F. Afebrile so far today. E. coli that was highly sensitive to antibiotics noted in cultures. Objective - Vital Signs/Intake and Output Vital Signs (last 24 hours): Temp Pulse Resp BP Pulse Ox 98 F 65 18 148/71 96 05/16/18 12:00 05/16/18 14:00 05/16/18 12:00 05/16/18 12:00 05/15/18 06:00 Intake and Output: 05/16/18 05/16/18 06:59 18:59 Intake Total 300 Output Total 1600 Balance -1300 - Medications Medications: Current Medications Acetaminophen (Tylenol 325mg Tab) 650 mg PO Q6H PRN PRN Reason: Fever >100.4 F Last Admin: 05/14/18 21:06 Dose: 650 mg Atorvastatin Calcium (Lipitor) 10 mg PO DIN [facility] Last Admin: 05/15/18 17:23 Dose: 10 mg Clonidine HCl (Catapres) 0.1 mg PO BID [facility] Last Admin: 05/16/18 10:52 Dose: 0.1 mg Docusate Sodium (Colace) 100 mg PO BID [facility] Doxazosin Mesylate (Cardura) 4 mg PO HS [facility] Last Admin: 05/15/18 21:28 Dose: 4 mg Famotidine (Pepcid) 40 mg PO HS [facility] Last Admin: 05/15/18 21:29 Dose: 40 mg Ferrous Gluconate (Fergon) 324 mg PO TID [facility] Last Admin: 05/16/18 14:00 Dose: 324 mg Sodium Chloride (Sodium Chloride 0.9%) 1,000 mls @ 100 mls/hr IV .Q10H [facility] Last Admin: 05/16/18 11:02 Dose: 100 mls/hr Meropenem 500 mg/ Sodium (Chloride) 50 mls @ 100 mls/hr IVPB Q12 [facility]; Protocol Stop: 05/24/18 22:01 Last Admin: 05/16/18 09:54 Dose: 100 mls/hr Vancomycin HCl (Vancomycin 1gm) 1 gm in 250 mls @ 167 mls/hr IVPB Q12H [facility]; Protocol Last Admin: 05/16/18 12:00 Dose: 167 mls/hr Letrozole (Femara) 2.5 mg PO DAILY [facility] Last Admin: 05/16/18 10:53 Dose: 2.5 mg Metoprolol Tartrate (Lopressor) 150 mg PO BRKDIN [facility] Last Admin: 05/16/18 07:52 Dose: 150 mg Nifedipine (Procardia Xl) 90 mg PO DAILY [facility] Last Admin: 05/16/18 10:58 Dose: 90 mg Nitroglycerin (Nitro-Bid 2% Oint) 1 ea TOP Q4H PRN PRN Reason: hypertension Nystatin (Mycostatin Cream) 0 ea TOP BID [facility] Last Admin: 05/16/18 10:59 Dose: 1 applic Ondansetron HCl (Zofran Inj) 4 mg IVP Q6H PRN PRN Reason: Nausea/Vomiting Tramadol/Acetaminophen (Ultracet 37.5/325 Mg) 1 tab PO Q8 PRN PRN Reason: Pain, severe (8-10) Last Admin: 05/16/18 14:33 Dose: 1 tab - Labs Labs: 05/13/18 22:15 05/13/18 22:15 PT 13.8 SECONDS (9.4-12.5) H 05/13/18 22:15 INR 1.21 05/13/18 22:15 APTT 30.1 Seconds (25.1-36.5) 05/13/18 22:15 - Constitutional Appears: Non-toxic, No Acute Distress, Chronically Ill - Head Exam Head Exam: ATRAUMATIC, NORMOCEPHALIC - Eye Exam Eye Exam: EOMI, PERRL Pupil Exam: NORMAL ACCOMODATION, PERRL - ENT Exam ENT Exam: Mucous Membranes Moist, Normal External Ear Exam, TM's Normal Bilaterally - Neck Exam Neck Exam: Full ROM, Normal Inspection - Respiratory Exam Respiratory Exam: Clear to Ausculation Bilateral, NORMAL BREATHING PATTERN. absent: Rales, Rhonchi, Wheezes - Cardiovascular Exam Cardiovascular Exam: REGULAR RHYTHM, RRR, +S1, +S2 - GI/Abdominal Exam GI & Abdominal Exam: Soft, Normal Bowel Sounds. absent: Distended, Tenderness - Extremities Exam Extremities Exam: Full ROM, Normal Inspection - Neurological Exam Neurological Exam: Alert, Awake, CN II-XII Intact, Oriented x3 - Psychiatric Exam Psychiatric exam: Normal Affect, Normal Mood - Skin Skin Exam: Intact, Normal Color Assessment and Plan - Assessment and Plan (Free Text) Assessment: 62 yo female with fevers and chills for 1 day who was [place] [facility] [place] for UTI with ESBL+ Pseudomonas. Patient with multiple medical issues including recurrent metastatic uterine carcinoma. Will start Meropenem until cultures return. Supportive care. Fungal rash in intertriginous areas. Topical treatment. UTI with gram negative rods. Growth of sensitive E. coli. Can consider deescalation of antibiotics to Ancef or Rocephin. Thank you for allowing me to participate in the care of the patient, we will follow with you.
[2018-05-17 07:17] LABS: MEAN CELL VOLUME 93.2 fl (80.0-105.0); MEAN CORPUSCULAR HEMOGLOBIN 29.3 pg (25.0-35.0); MEAN CORPUSCULAR HGB CONC 31.5 g/dl (31.0-37.0); MEAN PLATELET VOLUME 8.4 fl (7.0-11.0); RBC 3.07 10^6/uL (3.5-6.1); RED CELL DISTRIBUTION WIDTH 13.8 % (11.5-14.5)
[2018-05-17 07:32] LABS: CALCIUM 8.6 mg/dL (8.4-10.5)
--- NOTE | 2018-05-17 07:50 | PN ---
DATE: 05/16/2018 SUBJECTIVE: This 82-year-old female was examined at her bedside on the morning of 05/16/2018. She remains on the cardiac gibson. She is weak and deconditioned. However, she denies any fever, chills, chest pain or shortness of breath. Her urine culture is growing E. coli sensitive to meropenem. A blood culture is showing gram-positive cocci. Identification and sensitivity to follow. She remains on IV meropenem and IV vancomycin pending final culture results and at present is receiving IV fluids and tolerating diet and medication without incident. She remains weak and deconditioned and remains on contact precautions. PHYSICAL EXAMINATION: VITAL SIGNS: Her temperature was 98.9, respirations 16, pulse 70 and blood pressure 156/74. She is in a normal sinus rhythm on the marketing operations manager, pulse ox is 96% on room air. HEENT: Head: Normocephalic, atraumatic. Eyes: No icterus. Ears: Clear. Throat: Noninjected. NECK: Supple. HEART: Regular S1, S2. No pathological rubs, murmurs or gallops. LUNGS: Clear to auscultation. ABDOMEN: Obese, nontender. No palpable organomegaly. No rebound. No guarding. No tenderness. EXTREMITIES: Showed no clubbing, no cyanosis, no edema. SKIN: Without rash. NEUROLOGICAL: Deconditioned, but moves all 4 extremities. PSYCHOLOGICAL: Alert and oriented x3. VASCULAR: Legs warm to touch. ASSESSMENT: Blood culture showing gram-positive cocci. ID and sensitivity pending. Urine culture showing E. coli sensitive to meropenem and oral amoxicillin. With comorbidities of obesity, hypertension, metastatic recurrent uterine cancer causing obstructive uropathy and requiring the patient to maintain bilateral ureteral stents in the setting of chronic renal failure stage 3, anemia of chronic disease, hyperlipidemia, degenerative arthritis and deconditioning. PLAN: The plan as discussed with the patient and nursing will be to continue Cardura 4 mg p.o. at bedtime, clonidine 0.1 mg p.o. b.i.d. She will be started on Colace 100 mg p.o. b.i.d. for obstipation, Femara 2.5 mg p.o. daily, Fergon or ferrous gluconate 324 mg p.o. t.i.d., Lipitor 10 mg p.o. daily, Lopressor 150 mg p.o. b.i.d., meropenem 500 mg IV every 12, nystatin cream to intertriginous fungal rash b.i.d. till healed, nitroglycerin 1 inch to chest wall every 4 hours p.r.n. accelerated hypertension if systolic blood pressure greater than 160 or diastolic blood pressure greater than 100, Pepcid 40 mg p.o. at bedtime, Procardia XL 90 mg p.o. daily, 0.9 saline at 100 mL/hour, Tylenol 650 p.o. every 6 hours p.r.n. mild pain or temperature greater than 101, Ultracet 1 tablet p.o. every 8 hours p.r.n. severe pain, vancomycin 1 g IV every 12 and Zofran 4 mg IV every 6 hours p.r.n. nausea and vomiting. She is ordered to have a basic metabolic panel and CBC in the a.m. I did request that the patient continue on a renal heart-healthy diabetic diet and she is ordered to have physical therapy for ambulation safety. Once all of her cultures are identified and sensitivities are reported, I will discuss the timing of oral antibiotics with Dr. Nilesh Lloyd from infectious disease duration at home, The patient will continue with home physical therapy and oncology followup with her oncologist, Dr. Kathy Oquendo at the [facility]. Greater than 35 minutes was spent in the care and management, review of labs, orders and x-rays and discussion of this patient with her nurse, Bina Lyles, registered nurse. Luisa Pa MD KEO
[2018-05-17] MEDS: Nystatin 100,000 Units/gm Cream(15 gm) TOP SCH ×2 (10:03→18:08)
[2018-05-17] MEDS: Meropenem 500 MG in Sodium Chloride 0.9% 50 ML IVPB SCH (10:03)
[2018-05-17] MEDS: NIFEdipine 90 mg ER Tab PO SCH (10:03)
[2018-05-17] MEDS: Sodium Chloride 0.9% 1,000 ML IV SCH ×3 (10:04→18:06)
[2018-05-17] MEDS: Vancomycin 1gm in NS 250ml 1 GM/250 ML BAG IVPB SCH (10:04)
--- NOTE | 2018-05-17 14:45 | CP.PCM.PN ---
Subjective - Date & Time of Evaluation Date of Evaluation: 05/17/18 Time of Evaluation: 13:00 - Subjective Subjective: Infectious Disease Follow Up: May 17, 2018 62 yo female with known history of metastatic uterine carcinoma. The patient is complaining of fevers and chills for the past 24 hours prior to admission. Extensive past medical history of Obesity, hypertension, anemia, hyperlipidemia, GERDs, bilateral hydronephrosis with replaced bilateral urethral stents, chronic renal disease stage III, degenerative arthritis, and COPD. The patient had ESBL+ Pseudomonas with 7 days of IV meropenem then 10 days of oral Cipro on discharge from her last hospitalization earlier this month (discharged 04/26/20). Patient with history of recurrent UTIs. Patient with fevers up to 100.7 F. Afebrile so far today. E. coli that was highly sensitive to antibiotics noted in cultures. The patient is still having multiple UTI in a short period of time. Objective - Vital Signs/Intake and Output Vital Signs (last 24 hours): Temp Pulse Resp BP Pulse Ox 97.1 F L 67 19 133/57 L 97 05/17/18 12:00 05/17/18 12:10 05/17/18 12:00 05/17/18 12:00 05/17/18 06:00 Intake and Output: 05/17/18 05/17/18 06:59 18:59 Intake Total 2400 Output Total 1200 Balance 1200 - Medications Medications: Current Medications Acetaminophen (Tylenol 325mg Tab) 650 mg PO Q6H PRN PRN Reason: Fever >100.4 F Last Admin: 05/14/18 21:06 Dose: 650 mg Atorvastatin Calcium (Lipitor) 10 mg PO DIN [facility] Last Admin: 05/16/18 17:55 Dose: 10 mg Clonidine HCl (Catapres) 0.1 mg PO BID [facility] Last Admin: 05/17/18 10:02 Dose: 0.1 mg Docusate Sodium (Colace) 100 mg PO BID [facility] Last Admin: 05/17/18 10:02 Dose: 100 mg Doxazosin Mesylate (Cardura) 4 mg PO HS [facility] Last Admin: 05/16/18 21:44 Dose: 4 mg Famotidine (Pepcid) 40 mg PO HS [facility] Last Admin: 05/16/18 21:44 Dose: 40 mg Ferrous Gluconate (Fergon) 324 mg PO TID [facility] Last Admin: 05/17/18 13:31 Dose: 324 mg Sodium Chloride (Sodium Chloride 0.9%) 1,000 mls @ 100 mls/hr IV .Q10H [facility] Last Admin: 05/17/18 10:08 Dose: 100 mls/hr Meropenem 500 mg/ Sodium (Chloride) 50 mls @ 100 mls/hr IVPB Q12 [facility]; Protocol Stop: 05/24/18 22:01 Last Admin: 05/17/18 10:03 Dose: 100 mls/hr Vancomycin HCl (Vancomycin 1gm) 1 gm in 250 mls @ 167 mls/hr IVPB Q12H [facility]; Protocol Last Admin: 05/17/18 10:04 Dose: 167 mls/hr Letrozole (Femara) 2.5 mg PO DAILY [facility] Last Admin: 05/17/18 10:06 Dose: 2.5 mg Metoprolol Tartrate (Lopressor) 150 mg PO BRKDIN [facility] Last Admin: 05/17/18 08:00 Dose: 150 mg Nifedipine (Procardia Xl) 90 mg PO DAILY [facility] Last Admin: 05/17/18 10:03 Dose: 90 mg Nitroglycerin (Nitro-Bid 2% Oint) 1 ea TOP Q4H PRN PRN Reason: hypertension Nystatin (Mycostatin Cream) 0 ea TOP BID [facility] Last Admin: 05/17/18 10:03 Dose: 1 applic Ondansetron HCl (Zofran Inj) 4 mg IVP Q6H PRN PRN Reason: Nausea/Vomiting Tramadol/Acetaminophen (Ultracet 37.5/325 Mg) 1 tab PO Q8 PRN PRN Reason: Pain, severe (8-10) Last Admin: 05/16/18 23:31 Dose: 1 tab - Labs Labs: 05/17/18 06:30 05/17/18 06:30 PT 13.8 SECONDS (9.4-12.5) H 05/13/18 22:15 INR 1.21 05/13/18 22:15 APTT 30.1 Seconds (25.1-36.5) 05/13/18 22:15 - Constitutional Appears: Non-toxic, No Acute Distress, Chronically Ill - Head Exam Head Exam: ATRAUMATIC, NORMOCEPHALIC - Eye Exam Eye Exam: EOMI, PERRL Pupil Exam: NORMAL ACCOMODATION, PERRL - ENT Exam ENT Exam: Mucous Membranes Moist, Normal External Ear Exam, TM's Normal Bilaterally - Respiratory Exam Respiratory Exam: Clear to Ausculation Bilateral, NORMAL BREATHING PATTERN. absent: Rales, Rhonchi, Wheezes - Cardiovascular Exam Cardiovascular Exam: REGULAR RHYTHM, RRR, +S1, +S2 - GI/Abdominal Exam GI & Abdominal Exam: Soft, Normal Bowel Sounds. absent: Distended, Tenderness - Extremities Exam Extremities Exam: Full ROM, Normal Inspection - Neurological Exam Neurological Exam: Alert, Awake, CN II-XII Intact, Oriented x3 - Psychiatric Exam Psychiatric exam: Normal Affect, Normal Mood - Skin Skin Exam: Intact, Normal Color Assessment and Plan - Assessment and Plan (Free Text) Assessment: 62 yo female with fevers and chills for 1 day who was discharged from [facility] [place] for UTI with ESBL+ Pseudomonas. Patient with multiple medical issues including recurrent metastatic uterine carcinoma. Will start Meropenem until cultures return. Supportive care. Fungal rash in intertriginous areas. Topical treatment. UTI with gram negative rods. Growth of sensitive E. coli. Complete 7 days of IV antibiotic therapy with continuation of 14 days more of oral antibiotics with cephalosporin base. Thank you for allowing me to participate in the care of the patient, we will follow with you.
[2018-05-17 18:06] VITALS: RESP 20
[2018-05-18 00:06] VITALS: O2SAT 98
[2018-05-18 05:58] VITALS: TEMP 98.7
--- NOTE | 2018-05-18 08:06 | PN ---
DATE: 05/17/2018 SUBJECTIVE: This 62-year-old female was examined at her bedside on 05/17/2018. Her case was reviewed in detail with herself; nurse, Mayi Coronel, registered nurse and Dr. Nilesh Lloyd from Infectious Disease. The patient's blood culture is growing coagulation negative staph. Her urine culture is growing E-coli sensitive to Ancef. As discussed with Dr. Nilesh Lloyd antibiotics will be changed to oral Keflex, dose reduced for renal insufficiency and I have discussed with this patient that he feels it is in her best interest to take these antibiotics for approximately 3 weeks. At present, she is alert, oriented, cooperating with nursing staff. She has ambulated with physical therapy and denies any fever, chills, chest pain or shortness of breath PHYSICAL EXAMINATION: GENERAL: She was in a normal sinus rhythm on the monitoring tech. VITAL SIGNS: Her temperature was 98, respirations 18, pulse 65 and blood pressure 148/71. HEENT: Head, normocephalic, atraumatic. Eyes: No icterus. Ears: Clear. Throat: Noninjected. NECK: Supple. HEART: S1, S2 regular. LUNGS: Clear. ABDOMEN: Obese, nontender. No rebound, no guarding. No tenderness. EXTREMITES: No edema. SKIN: Without rash. NEUROLOGIC: Intact, but deconditioned. VASCULAR: Legs warm to touch. PSYCHOLOGICAL: Alert and oriented x3. LABORATORY DATA: White count 4000, hemoglobin 9, hematocrit 28.6, platelets 340,000. Sodium 139, K 4.1, chloride 112, bicarb 18, BUN 26, creatinine 2.1. Estimated GFR 24 mL per minute. Calcium 8.6. Influenza A and B serologies were negative. Urine culture showed E-coli. Blood culture showed coagulation negative staph aureus. IMPRESSION: A 62-year-old female with recurrent urosepsis, now with Escherichia coli urinary tract infection and comorbidities of obesity, metastatic recurrent uterine cancer, chronic hypertension, anemia of iron deficiency, hyperlipidemia, degenerative arthritis, peptic ulcer disease with gastroesophageal reflux disease with plans to continue Keflex 500 mg p.o. every 12 hours for a 21-day course, Cardura 4 mg p.o. at bedtime, clonidine 0.1 mg p.o. b.i.d., Colace 100 mg p.o. b.i.d., Femara 2.5 mg p.o. daily, Lipitor 10 mg p.o. daily, Lopressor 150 mg p.o. b.i.d., nystatin cream to affected intertriginous fungal skin areas b.i.d., Pepcid 40 mg p.o. at bedtime, Procardia XL 90 mg p.o. daily, Ultracet one p.o. every 8 hour p.r.n. severe pain, Tylenol 650 p.o. every 6 hours p.r.n. fever or mild pain and Zofran 4 mg IV every 6 hours p.r.n. nausea, vomiting. Based on the patient's clinical progress, we will attempt to discharge her in the a.m. She continues on a renal heart-healthy diet. She remains on isolation precautions and was counseled regarding all of the above and need for close outpatient compliance and followup regarding her recurrent urinary tract infections, bladder hygiene was once again reviewed and as per Dr. Lloyd, who did discuss this case with Dr. Yadiel Weinberg, there are no plans for changing her bilateral ureteral stents at this time. Luisa Pa MD MTDD
[2018-05-18] MEDS: NIFEdipine 90 mg ER Tab PO SCH (09:39)
[2018-05-18] MEDS: Nystatin 100,000 Units/gm Cream(15 gm) TOP SCH ×2 (09:41→16:06)
[2018-05-18 09:46] VITALS: BP 151/75
[2018-05-18] MEDS ORDERED: Influenza Vaccine 60 mcg/0.5 mL SYR (4YR UP) IM ONE (15:02)
[2018-05-18] MEDS ORDERED: Pneumococcal 23-Valent Vaccine IM ONE (15:02)
[2018-05-18 15:21] VITALS: PULSE 57
--- NOTE | 2018-05-18 17:14 | CP.PCM.PN ---
Subjective - Date & Time of Evaluation Date of Evaluation: 05/18/18 Time of Evaluation: 16:00 - Subjective Subjective: Infectious Disease Follow Up: May 18, 2018 62 yo female with known history of metastatic uterine carcinoma. The patient is complaining of fevers and chills for the past 24 hours prior to admission. Extensive past medical history of Obesity, hypertension, anemia, hyperlipidemia, GERDs, bilateral hydronephrosis with replaced bilateral urethral stents, chronic renal disease stage III, degenerative arthritis, and COPD. The patient had ESBL+ Pseudomonas with 7 days of IV meropenem then 10 days of oral Cipro on discharge from her last hospitalization earlier this month (discharged 04/26/2018). Patient with history of recurrent UTIs. Patient with fevers up to 100.7 F. Afebrile so far today. E. coli that was highly sensitive to antibiotics noted in cultures. The patient is still having multiple UTI in a short period of time. Switched to oral Keflex for treatment. Objective - Vital Signs/Intake and Output Vital Signs (last 24 hours): Temp Pulse Resp BP Pulse Ox 98.7 F 57 L 20 151/75 H 98 05/18/18 05:57 05/18/18 14:00 05/18/18 05:57 05/18/18 09:39 05/18/18 05:57 Intake and Output: 05/18/18 05/18/18 06:59 18:59 Intake Total 180 Output Total 700 Balance -520 - Medications Medications: Current Medications Acetaminophen (Tylenol 325mg Tab) 650 mg PO Q6H PRN PRN Reason: Fever >100.4 F Last Admin: 05/14/18 21:06 Dose: 650 mg Atorvastatin Calcium (Lipitor) 10 mg PO DIN [facility] Last Admin: 05/17/18 18:05 Dose: 10 mg Cephalexin Monohydrate (Keflex) 500 mg PO Q12 [facility]; Protocol Last Admin: 05/18/18 09:39 Dose: 500 mg Clonidine HCl (Catapres) 0.1 mg PO BID [facility] Last Admin: 05/18/18 09:39 Dose: 0.1 mg Docusate Sodium (Colace) 100 mg PO BID [facility] Last Admin: 05/18/18 09:38 Dose: 100 mg Doxazosin Mesylate (Cardura) 4 mg PO HS [facility] Last Admin: 05/17/18 21:57 Dose: 4 mg Famotidine (Pepcid) 40 mg PO HS [facility] Last Admin: 05/17/18 21:57 Dose: 40 mg Ferrous Gluconate (Fergon) 324 mg PO TID [facility] Last Admin: 05/18/18 14:23 Dose: 324 mg Letrozole (Femara) 2.5 mg PO DAILY [facility] Last Admin: 05/18/18 09:52 Dose: 2.5 mg Metoprolol Tartrate (Lopressor) 150 mg PO BRKDIN [facility] Last Admin: 05/18/18 09:38 Dose: 150 mg Nifedipine (Procardia Xl) 90 mg PO DAILY [facility] Last Admin: 05/18/18 09:39 Dose: 90 mg Nitroglycerin (Nitro-Bid 2% Oint) 1 ea TOP Q4H PRN PRN Reason: hypertension Nystatin (Mycostatin Cream) 0 ea TOP BID [facility] Last Admin: 05/18/18 16:06 Dose: Not Given Ondansetron HCl (Zofran Inj) 4 mg IVP Q6H PRN PRN Reason: Nausea/Vomiting Tramadol/Acetaminophen (Ultracet 37.5/325 Mg) 1 tab PO Q8 PRN PRN Reason: Pain, severe (8-10) Last Admin: 05/16/18 23:31 Dose: 1 tab - Labs Labs: 05/17/18 06:30 05/17/18 06:30 PT 13.8 SECONDS (9.4-12.5) H 05/13/18 22:15 INR 1.21 05/13/18 22:15 APTT 30.1 Seconds (25.1-36.5) 05/13/18 22:15 - Constitutional Appears: Non-toxic, No Acute Distress, Chronically Ill - Head Exam Head Exam: ATRAUMATIC, NORMOCEPHALIC - Eye Exam Eye Exam: EOMI, PERRL Pupil Exam: NORMAL ACCOMODATION, PERRL - ENT Exam ENT Exam: Mucous Membranes Moist, Normal External Ear Exam, TM's Normal Bilaterally - Neck Exam Neck Exam: Full ROM, Normal Inspection - Respiratory Exam Respiratory Exam: Clear to Ausculation Bilateral, NORMAL BREATHING PATTERN. absent: Rales, Rhonchi, Wheezes - Cardiovascular Exam Cardiovascular Exam: REGULAR RHYTHM, RRR, +S1, +S2 - GI/Abdominal Exam GI & Abdominal Exam: Soft, Normal Bowel Sounds. absent: Distended, Tenderness - Extremities Exam Extremities Exam: Full ROM, Normal Inspection - Neurological Exam Neurological Exam: Alert, Awake, CN II-XII Intact, Oriented x3 - Psychiatric Exam Psychiatric exam: Normal Affect, Normal Mood - Skin Skin Exam: Intact, Normal Color Assessment and Plan - Assessment and Plan (Free Text) Assessment: 62 yo female with fevers and chills for 1 day who was discharged from [facility] [place] on 04/26/2018 for UTI with ESBL+ Pseudomonas. Patient with multiple medical issues including recurrent metastatic uterine carcinoma. Will start Meropenem until cultures return. Supportive care. Fungal rash in intertriginous areas. Topical treatment. UTI with gram negative rods. Growth of sensitive E. coli. Switched to oral Keflex 500mg PO BID for additional 21 day course. Patient currently comfortable. Thank you for allowing me to participate in the care of the patient, we will follow with you.
== END 2018-05-18 17:05 | disposition home or self-care (01) | DRG 690 ==
LOC: ED 21:37 → ERH 23:52 → 2RNO 05-14 02:43 → OBSVTOIN 05-14 10:12
PROVIDERS: ADMIT Internal Medicine; ATTEND Internal Medicine
PROC: 3E02340 Introduction of Influenza Vaccine into Muscle, Percutaneous Approach (ICD-10-PCS; principal; 2018-05-18)
PROC: 3E0234Z Introduction of Serum, Toxoid and Vaccine into Muscle, Percutaneous Approach (ICD-10-PCS; 2018-05-18)
DX: N39.0 Urinary tract infection, site not specified (principal); N17.9 Acute kidney failure, unspecified; C79.9 Secondary malignant neoplasm of unspecified site; C55 Malignant neoplasm of uterus, part unspecified; B96.20 Unspecified Escherichia coli [E. coli] as the cause of diseases classified elsewhere; I12.9 Hypertensive chronic kidney disease with stage 1 through stage 4 chronic kidney disease, or unspecified chronic kidney disease; N18.3 Chronic kidney disease, stage 3 (moderate); B36.9 Superficial mycosis, unspecified; D50.9 Iron deficiency anemia, unspecified; D63.8 Anemia in other chronic diseases classified elsewhere; J44.9 Chronic obstructive pulmonary disease, unspecified; K21.9 Gastro-esophageal reflux disease without esophagitis; N13.9 Obstructive and reflux uropathy, unspecified; M19.90 Unspecified osteoarthritis, unspecified site; K27.9 Peptic ulcer, site unspecified, unspecified as acute or chronic, without hemorrhage or perforation; E78.00 Pure hypercholesterolemia, unspecified; E66.9 Obesity, unspecified; E78.5 Hyperlipidemia, unspecified; Z68.37 Body mass index [BMI] 37.0-37.9, adult; Z23 Encounter for immunization

== ENCOUNTER 2018-05-29 23:34 | Inpatient (IN) | payer BC ==
--- NOTE | 2018-05-30 00:32 | ED PDOC ---
Arrival/HPI - General Chief Complaint: Fever Time Seen by Provider: 05/29/18 23:57 Historian: Patient - History of Present Illness Narrative History of Present Illness (Text): 05/30/18 00:29 62 year old female, whose past medical history includes metastatic recurrent uterine carcinoma on oral chemotherapy, chronic hypertension, anemia, hyperlipidemia, pepcid ulcer disease, GERD, bilateral hydronephrosis with bilateral ureteral stents, chronic stage III renal failure, degenerative arthritis, and COPD, presents to the emergency department by EMS with a fever since 6 hours ago. Patient states she was told by PMD if the fever goes over 100 degrees, to come to the emergency department. Patient informs this is because she was septic during her last visit. Patient states her fever was 100.2. Patient also informs of left ankle pain. Patient informs she has gout, but has not had any recent flareups. Patient denies any headache, dizziness, chest pain, shortness of breath, cough, sore throat, runny nose, abdominal pain, nausea, vomiting, diarrhea, back pain, neck pain, urinary/bowel changes, or any other complaint. Time/Duration: 4-6 hours Symptom Onset: Gradual Symptom Course: Unchanged Activities at Onset: Light Past Medical History - Provider Review Nursing Documentation Reviewed: Yes - Infectious Disease Hx of Infectious Diseases: None - Cardiac Hx Cardiac Disorders: Yes Hx Hypertension: Yes - Pulmonary Hx Chronic Obstructive Pulmonary Disease (COPD): Yes - Neurological Hx Neurological Disorder: No - HEENT Hx HEENT Disorder: Yes (uses reading glasses) - Renal Hx Renal Failure: Yes - Endocrine/Metabolic Hx Endocrine Disorders: No - Hematological/Oncological Hx Blood Disorders: Yes Hx Cancer: Yes Hx Chemotherapy: Yes (uterine) - Integumentary Hx Dermatological Disorder: No - Musculoskeletal/Rheumatological Hx Falls: Yes - Gastrointestinal Hx Gastrointestinal Disorders: Yes Hx Gastroesophageal Reflux: Yes - Genitourinary/Gynecological Hx Genitourinary Disorders: Yes Hx Urinary Tract Infection: Yes - Psychiatric Hx Psychophysiologic Disorder: No Hx Substance Use: No - Surgical History Hx Cholecystectomy: Yes - Anesthesia Hx Anesthesia: Yes Hx Anesthesia Reactions: No Hx Malignant Hyperthermia: No - Suicidal Assessment Feels Threatened In Home Enviroment: No Family/Social History - Physician Review Nursing Documentation Reviewed: Yes Family/Social History: No Known Family HX Smoking Status: Never Smoked Hx Alcohol Use: No Hx Substance Use: No Hx Substance Use Treatment: No Allergies/Home Meds Allergies/Adverse Reactions: Allergies No Known Allergies Allergy (Verified 05/13/18 21:57) Home Medications: Home Meds Medication Instructions Recorded Confirmed Atorvastatin [Lipitor] 10 mg PO DAILY 05/13/18 05/29/18 Metoprolol Tartrate [Lopressor] 150 mg PO BID 05/13/18 05/29/18 NIFEdipine ER [Procardia XL] 90 mg PO DAILY 05/13/18 05/29/18 Letrozole [Femara] 2.5 mg PO 0905/14/18 05/29/18 Review of Systems - Physician Review All systems were reviewed & negative as marked: Yes - Review of Systems Constitutional: Fevers ENT: absent: Sore Throat, Rhinorrhea Respiratory: absent: SOB, Cough Cardiovascular: absent: Chest Pain Gastrointestinal: absent: Abdominal Pain, Diarrhea, Nausea, Vomiting Genitourinary Female: absent: Urine Output Changes Musculoskeletal: absent: Back Pain, Neck Pain Neurological: absent: Headache, Dizziness Physical Exam - Physical Exam Narrative Physical Exam (Text): 05/30/18 00:33 Gen: VS reviewed, alert, well developed, well nourished, nontoxic, mild distress. ENT: normal pharynx. Eye: EOMI, PERRL. Neck: no JVD, supple, no adenopathy. CV: regular rate, regular rhythm, no rubs, no murmur, no gallops, S1, S2, pulses equal and strong. Pulm: no distress, clear to auscultation, no wheeze, no rhonchi, breath sounds equal, no rales. Abd: soft, nontender, no guarding, no rebound, no rigidity, normal bowel sounds. Ext: Limited ROM of left ankle. Skin: good color, no rash, no cyanosis. Psych: responds appropriately to questions, normal affect. Neuro: oriented x 3, CN2-12 intact grossly, motor intact, sensation intact. Vital Signs Reviewed: Yes Vital Signs Temp Pulse Resp BP Pulse Ox 05/30/18 00:04 98.8 F 60 18 106/64 98 Temperature: Afebrile Blood Pressure: Normal Pulse: Regular Respiratory Rate: Normal Appearance: Positive for: Well-Appearing, Non-Toxic, Comfortable Pain Distress: None Mental Status: Positive for: Alert and Oriented X 3 Medical Decision Making ED Course and Treatment: 05/30/18 00:34 Impression: 62 year old female presents with fever Plan: -- Labs -- Chest X-ray -- X-ray of left ankle -- Urinalysis -- Reassess and disposition Prior Visits: Notes and results from previous visits were reviewed. Progress Notes: 05/30/18 06:[address] woods, patient to be admitted for complicated uti. patient will require empiric broad spectrum antibiotics and meropenem in the ED as per dr. woods. consults to dr. zhang and emanuel. patient remained stable throughout ED course. 05/30/18 06:59 - RAD Interpretation Radiology Orders: 05/30/18 00:25 CXR [CHEST TWO VIEWS (PA/LAT)] [RAD] Stat 05/30/18 00:27 ANKLE LEFT 3 VIEWS ROUTINE [RAD] Stat - Scribe Statement The provider has reviewed the documentation as recorded by the Scribe [place] Provider Scribe Attestation: All medical record entries made by the Scribe were at my direction and personally dictated by me. I have reviewed the chart and agree that the record accurately reflects my personal performance of the history, physical exam, medical decision making, and the department course for this patient. I have also personally directed, reviewed, and agree with the discharge instructions and disposition. Disposition/Present on Arrival - Present on Arrival Any Indicators Present on Arrival: No History of DVT/PE: No History of Uncontrolled Diabetes: No Urinary Catheter: No History of Decub. Ulcer: No History Surgical Site Infection Following: None - Disposition Have Diagnosis and Disposition been Completed?: Yes Diagnosis: UTI (urinary tract infection) Disposition: HOSPITALIZED Disposition Time: 06:35 Patient Plan: Admission Patient Problems: Current Active Problems Problem Status Onset UTI (urinary tract infection) Acute Condition: STABLE
[2018-05-30 01:39] LABS: BASO # 0.01 K/mm3 (0.0-2.0); BASO % 0.2 % (0.0-3.0); EOS # 0.2 (0.0-0.7); EOS % 3.7 % (1.5-5.0); GRAN # 4.2 (1.4-6.5); GRAN % 64.9 % (50.0-68.0); HEMOGLOBIN 9.1 g/dL (12.0-16.0); LYMPH # 1.3 (1.2-3.4); LYMPH % 19.3 % (22.0-35.0); MEAN CELL VOLUME 93.7 fl (80.0-105.0); MEAN CORPUSCULAR HEMOGLOBIN 30.3 pg (25.0-35.0); MEAN CORPUSCULAR HGB CONC 32.4 g/dl (31.0-37.0); MEAN PLATELET VOLUME 8.7 fl (7.0-11.0); MONO # 0.8 (0.1-0.6); MONO % 11.9 % (1.0-6.0); RED CELL DISTRIBUTION WIDTH 14.7 % (11.5-14.5); WHITE BLOOD COUNT 6.5 10^3/ul (4.5-11.0)
[2018-05-30 02:03] LABS: VENOUS BLOOD GAS BASE EXCESS -4.8 mmol/L (0.0-2.0); VENOUS BLOOD GAS PO2 41 mm/Hg (30-55)
[2018-05-30 02:26] LABS: ALB/GLOB RATIO 0.8 (1.1-1.8); ALBUMIN 3.3 g/dL (3.0-4.8); CALCIUM 8.8 mg/dL (8.4-10.5); URIC ACID 7.9 mg/dL (2.5-6.2)
[2018-05-30 04:39] LABS: URINE BILIRUBIN NEGATIVE (NEGATIVE); URINE BLOOD LARGE (NEGATIVE); URINE GLUCOSE (UA) NEGATIVE (NEGATIVE); URINE LEUKOCYTE ESTERASE LARGE Leu/uL (NEGATIVE); URINE PROTEIN 100 mg/dL (<30 mg/dL); URINE UROBILINOGEN 0.2 E.U./dL (<1 E.U./dL)
[2018-05-30 04:42] LABS: URINE APPEARANCE CLOUDY (CLEAR); URINE COLOR YELLOW (YELLOW)
[2018-05-30] MEDS ORDERED: Piperacillin/Tazobact 3.375 gm 100 ML IVPB STA (04:57)
[2018-05-30 05:02] LABS: URINE EPITHELIAL CELLS 0 - 2 /hpf (0-5); URINE WBC TNTC /hpf (0-6)
[2018-05-30 05:03] LABS: URINE BACTERIA SMALL (NEG)
[2018-05-30] MEDS: MEROPENEM 500 MG in NS 500 MG/50 ML BAG IVPB SCH ×2 (07:46→19:10)
[2018-05-30] MEDS ORDERED: TraMADol/Apap 37.5/325 mg Tab PO PRN (08:30)
--- NOTE | 2018-05-30 09:01 | RAD ---
HISTORY: Fever COMPARISON: 05/13/2018. TECHNIQUE: Chest PA and lateral FINDINGS: LINES AND TUBES: None. LUNG AND PLEURA: The lungs are well inflated and clear. No pleural effusion or pneumothorax. HEART AND MEDIASTINUM: The heart is not enlarged. The hilar and mediastinal contours are within normal limits. SKELETAL STRUCTURES: The bony structures are within normal limits for the patient's age. VISUALIZED UPPER ABDOMEN: Normal. OTHER FINDINGS: None. IMPRESSION: No active pulmonary disease.
--- NOTE | 2018-05-30 09:37 | RAD ---
Date of service: 05/30/2018 PROCEDURE: Left Ankle Radiographs. HISTORY: Pain COMPARISON: None FINDINGS: BONES: There is diffuse bone demineralization. There is no acute fracture or bone destruction. Bone alignment is normal. There is an os trigonum. JOINTS: There is mild degenerative osteoarthrosis in the tibiotalar and talocalcaneal joints. Ankle mortise maintained. Talar dome intact SOFT TISSUES: There is moderate periarticular soft tissue swelling. OTHER FINDINGS: None. IMPRESSION: No acute displaced fracture or dislocation. Moderate periarticular soft tissue swelling. Mild degenerative osteoarthrosis in the tibiotalar and talocalcaneal joints.
[2018-05-30] MEDS: NIFEdipine 90 mg ER Tab PO SCH (10:29)
[2018-05-30 16:57] VITALS: BMI 46.0
[2018-05-30] MEDS ORDERED: Pneumococcal 23-Valent Vaccine IM ONE (16:58)
[2018-05-30] MEDS ORDERED: Influenza Vaccine 60 mcg/0.5 mL SYR (4YR UP) IM ONE (16:58)
--- NOTE | 2018-05-30 18:05 | CP.PCM.CON ---
History of Present Illness - History of Present Illness History of Present Illness: Infectious Disease Consultation: May 30, 2018 62 yo female with known history of metastatic uterine carcinoma. The patient is complaining of fevers over 100.0 F for the past 24 hours prior to admission. Extensive past medical history of Obesity, hypertension, anemia, hyperlipidemia, GERDs, bilateral hydronephrosis with replaced bilateral urethral stents, chronic renal disease stage III, degenerative arthritis, and COPD. The patient has required Meropenem treatment on her last two hospitalizations. PMHx: Uterine Carcinoma with metastatic disease, Obesity, hypertension, anemia, hyperlipidemia, GERDs, bilateral hydronephrosis with replaced bilateral urethral stents, chronic renal disease stage III, degenerative arthritis, and COPD PSHx: Bilateral urethral stents Allergies: NKDA Social Hx: No tobacco, no EtOH, or illicit drug use Active Medications Acetaminophen (Tylenol 325mg Tab) 650 mg PO Q6H PRN PRN Reason: Fever >100.4 F Atorvastatin Calcium (Lipitor) 10 mg PO DIN [facility] Last Admin: 05/30/18 17:28 Dose: 10 mg Clonidine HCl (Catapres) 0.1 mg PO DAILY [facility] Last Admin: 05/30/18 10:30 Dose: 0.1 mg Docusate Sodium (Colace) 100 mg PO DAILY [facility] Last Admin: 05/30/18 10:29 Dose: 100 mg Doxazosin Mesylate (Cardura) 4 mg PO HS JAMARI Famotidine (Pepcid) 20 mg PO HS [facility] Ferrous Gluconate (Fergon) 324 mg PO TID [facility] Last Admin: 05/30/18 17:28 Dose: 324 mg Meropenem/Sodium Chloride (Merrem Iv 500 Mg/Ns 50 Ml) 500 mg in 50 mls @ 100 mls/hr IVPB Q12H [facility]; Protocol Last Admin: 05/30/18 07:46 Dose: 100 mls/hr Indomethacin (Indocin) 25 mg PO TID [facility] Stop: 06/01/18 10:00 Letrozole (Femara) 2.5 mg PO DAILY [facility] Last Admin: 05/30/18 10:25 Dose: 2.5 mg Metoprolol Tartrate (Lopressor) 150 mg PO BID [facility] Last Admin: 05/30/18 17:28 Dose: 150 mg Nifedipine (Procardia Xl) 90 mg PO DAILY [facility] Last Admin: 05/30/18 10:29 Dose: 90 mg Ondansetron HCl (Zofran Inj) 4 mg IVP Q6H PRN PRN Reason: Nausea/Vomiting Tramadol/Acetaminophen (Ultracet 37.5/325 Mg) 1 tab PO TID PRN PRN Reason: severe pain Family Hx: None given ROS: Patient stating fever. No headaches, dizziness, chest pain, abdominal pain, melena, hematuria, hematemesis, hematochezia, depression, anxiety Past Patient History - Infectious Disease Hx of Infectious Diseases: None - Past Social History Smoking Status: Never Smoked - CARDIAC Hx Cardiac Disorders: Yes Hx Hypercholesterolemia: Yes Hx Hypertension: Yes Hx Peripheral Edema: Yes (rle +1 lle +2) Other/Comment: r ankle +1 edema left ankle +2 edema, malignant htn - PULMONARY Hx Respiratory Disorders: Yes Hx Chronic Obstructive Pulmonary Disease (COPD): Yes - NEUROLOGICAL Hx Neurological Disorder: No - HEENT Hx HEENT Problems: Yes (uses reading glasses) - RENAL Hx Chronic Kidney Disease: Yes Hx Kidney Stones: Yes Hx Renal Failure: Yes (chronic stg 3) Other/Comment: ureteral stent b/l, obstruction uropathy from metastatic ca - ENDOCRINE/METABOLIC Hx Endocrine Disorders: No - HEMATOLOGICAL/ONCOLOGICAL Hx Blood Disorders: Yes (sepsis from uti, hx of code sepsis) Hx Anemia: Yes (iron deficiency) Hx Cancer: Yes (uterine) Hx Chemotherapy: Yes Hx Metastesis: Yes (liver) Other/Comment: dx 2010 had chemo and radiation, dr elise butler [facility] floor tiling professional, oncologist - INTEGUMENTARY Hx Dermatological Problems: Yes - MUSCULOSKELETAL/RHEUMATOLOGICAL Hx Falls: Yes (past) - GASTROINTESTINAL Hx Gastrointestinal Disorders: Yes (obese) Hx Gastroesophageal Reflux: Yes Hx Ulcer: Yes (peptic) - GENITOURINARY/GYNECOLOGICAL Hx Genitourinary Disorders: Yes Hx Hematuria: Yes Hx Incontinence: Yes (started yesterday 05/29/18 as per pt) Hx Urinary Tract Infection: Yes [place] [facility] [place] Other/Comment: hx vre ad esbl as per past records but when pt asked she is not sure, pubic/suprapubic swelling and redness, red raised rash right buttock, redness to left buttock, redness travels from buttocks, perianal, b/l groin pubic, suprapubic, abd fold, right thigh 2cm x 1.5 cm pink pigmented slin, thick toenails - PSYCHIATRIC Hx Substance Use: No - SURGICAL HISTORY Hx Surgeries: Yes Hx Cholecystectomy: Yes Hx Hysterectomy: Yes Other/Comment: cysto with stent 03/31/18 - ANESTHESIA Hx Anesthesia: Yes Hx Anesthesia Reactions: No Hx Malignant Hyperthermia: No Meds Allergies/Adverse Reactions: Allergies Allergy/AdvReac Type Severity Reaction Status Date / Time No Known Allergies Allergy Verified 05/13/18 21:57 - Medications Medications: Current Medications Acetaminophen (Tylenol 325mg Tab) 650 mg PO Q6H PRN PRN Reason: Fever >100.4 F Atorvastatin Calcium (Lipitor) 10 mg PO DIN [facility] Last Admin: 05/30/18 17:28 Dose: 10 mg Clonidine HCl (Catapres) 0.1 mg PO DAILY [facility] Last Admin: 05/30/18 10:30 Dose: 0.1 mg Docusate Sodium (Colace) 100 mg PO DAILY [facility] Last Admin: 05/30/18 10:29 Dose: 100 mg Doxazosin Mesylate (Cardura) 4 mg PO HS J[facility]I Famotidine (Pepcid) 20 mg PO HS [facility] Ferrous Gluconate (Fergon) 324 mg PO TID [facility] Last Admin: 05/30/18 17:28 Dose: 324 mg Meropenem/Sodium Chloride (Merrem Iv 500 Mg/Ns 50 Ml) 500 mg in 50 mls @ 100 mls/hr IVPB Q12H [facility]; Protocol Last Admin: 05/30/18 07:46 Dose: 100 mls/hr Indomethacin (Indocin) 25 mg PO TID [facility] Stop: 06/01/18 10:00 Letrozole (Femara) 2.5 mg PO DAILY [facility] Last Admin: 05/30/18 10:25 Dose: 2.5 mg Metoprolol Tartrate (Lopressor) 150 mg PO BID [facility] Last Admin: 05/30/18 17:28 Dose: 150 mg Nifedipine (Procardia Xl) 90 mg PO DAILY [facility] Last Admin: 05/30/18 10:29 Dose: 90 mg Ondansetron HCl (Zofran Inj) 4 mg IVP Q6H PRN PRN Reason: Nausea/Vomiting Tramadol/Acetaminophen (Ultracet 37.5/325 Mg) 1 tab PO TID PRN PRN Reason: severe pain Physical Exam - Constitutional Appears: Non-toxic, No Acute Distress, Chronically Ill - Head Exam Head Exam: ATRAUMATIC, NORMOCEPHALIC - Eye Exam Eye Exam: EOMI, PERRL Pupil Exam: NORMAL ACCOMODATION, PERRL - ENT Exam ENT Exam: Mucous Membranes Moist, Normal External Ear Exam, TM's Normal Bilaterally - Neck Exam Neck exam: Positive for: Full Rom, Normal Inspection - Respiratory Exam Respiratory Exam: Clear to Auscultation Bilateral, NORMAL BREATHING PATTERN. absent: Rales, Rhonchi, Wheezes - Cardiovascular Exam Cardiovascular Exam: REGULAR RHYTHM, RRR, +S1, +S2 - GI/Abdominal Exam GI & Abdominal Exam: Normal Bowel Sounds, Soft. absent: Distended, Tenderness - Extremities Exam Extremities exam: Positive for: full ROM, normal inspection - Neurological Exam Neurological exam: Alert, CN II-XII Intact, Oriented x3 - Psychiatric Exam Psychiatric exam: Normal Affect, Normal Mood - Skin Skin Exam: Intact, Normal Color Results - Vital Signs Recent Vital Signs: Last Vital Signs Temp 99.0 F 05/30/18 09:50 Pulse 78 05/30/18 17:28 Resp 19 05/30/18 16:26 BP 134/64 05/30/18 17:28 Pulse Ox 98 05/30/18 09:50 - Labs Result Diagrams: 05/30/18 01:12 05/30/18 01:12 Labs: Laboratory Results - last 24 hr 05/30/18 05/30/18 05/30/18 01:12 01:12 01:12 WBC 6.5 D RBC 3.00 L Hgb 9.1 L Hct 28.1 L MCV 93.7 MCH 30.3 MCHC 32.4 RDW 14.7 H Plt Count 305 MPV 8.7 Gran % 64.9 Lymph % (Auto) 19.3 L Wilkinson % (Auto) 11.9 H Eos % (Auto) 3.7 Baso % (Auto) 0.2 Gran # 4.20 Lymph # (Auto) 1.3 Wilkinson # (Auto) 0.8 H Eos # (Auto) 0.2 Baso # (Auto) 0.01 ESR 130 H pO2 41 VBG pH 7.30 L VBG pCO2 44.0 VBG HCO3 21.6 VBG Total CO2 23.0 VBG O2 Sat (Calc) 73.6 H VBG Base Excess -4.8 L VBG Potassium 4.7 Sodium 138.0 140 Chloride 111.0 H 109 H Glucose 138 H Lactate 0.8 FiO2 21.0 Potassium 4.4 Carbon Dioxide 23 Anion Gap 13 BUN 41 H Creatinine 2.4 H Est GFR ( Amer) 25 Est GFR (Non-Af Amer) 20 POC Glucose (mg/dL) Random Glucose 134 H Uric Acid 7.9 H Calcium 8.8 Total Bilirubin 0.3 AST 36 D ALT 27 Alkaline Phosphatase 63 Total Protein 7.6 Albumin 3.3 Globulin 4.2 Albumin/Globulin Ratio 0.8 L Venous Blood Potassium 4.7 Urine Color Urine Appearance Urine pH Ur Specific [place] Urine Protein Urine Glucose (UA) Urine Ketones Urine Blood Urine Nitrate Urine Bilirubin Urine Urobilinogen Ur Leukocyte Esterase Urine RBC Urine WBC Ur Epithelial Cells Urine Bacteria 05/30/18 05/30/18 04:25 16:04 WBC RBC Hgb Hct MCV MCH MCHC RDW Plt Count MPV Gran % Lymph % (Auto) Wilkinson % (Auto) Eos % (Auto) Baso % (Auto) Gran # Lymph # (Auto) Wilkinson # (Auto) Eos # (Auto) Baso # (Auto) ESR pO2 VBG pH VBG pCO2 VBG HCO3 VBG Total CO2 VBG O2 Sat (Calc) VBG Base Excess VBG Potassium Sodium Chloride Glucose Lactate FiO2 Potassium Carbon Dioxide Anion Gap BUN Creatinine Est GFR ( Amer) Est GFR (Non-Af Amer) POC Glucose (mg/dL) 162 H Random Glucose Uric Acid Calcium Total Bilirubin AST ALT Alkaline Phosphatase Total Protein Albumin Globulin Albumin/Globulin Ratio Venous Blood Potassium Urine Color Yellow Urine Appearance Cloudy Urine pH 6.0 Ur Specific [place] 1.020 Urine Protein 100 H Urine Glucose (UA) Negative Urine Ketones Negative Urine Blood Large H Urine Nitrate Negative Urine Bilirubin Negative Urine Urobilinogen 0.2 Ur Leukocyte Esterase Large H Urine RBC 1 - 3 Urine WBC Tntc Ur Epithelial Cells 0 - 2 Urine Bacteria Small Assessment & Plan - Assessment and Plan (Free Text) Assessment: 62 yo female with fevers for 1 day who has had several hospitalization to [facility] [place] with UTI with ESBL+ Pseudomonas and E. coli. Patient with multiple medical issues including recurrent metastatic uterine carcinoma. Will start Meropenem until cultures return based on the previous recent hospitalizations. Supportive care. Slowly resolving Fungal rash in intertriginous areas. Topical treatment. Thank you for allowing me to participate in the care of the patient, we will follow with you.
--- NOTE | 2018-05-30 22:51 | HP ---
DATE OF EXAM: 05/30/2018 HISTORY OF PRESENT ILLNESS: This 62-year-old female was examined at her bedside in the presence of her and nurse, Torin Elliott, registered nurse. The patient was admitted earlier today with concerns of urosepsis. This will be her fourth episode of recurrent urosepsis. The past three times each with a different organism including Proteus, Pseudomonas, and E. coli. When the patient was discharged on 05/18/2018, she was given a 3-week prescription of Keflex which she said she is still in the process of taking. It is now approximately 2 weeks since her discharge and she started to experience recurrent low-grade fevers. Given her previous history, she is admitted to [facility] to rule out urosepsis. PAST MEDICAL HISTORY: Also, significant for recurrent metastatic uterine cancer, which has caused obstructive uropathy requiring ureteral stents. She also has chronic renal failure stage 3, hypertension, obesity, iron-deficiency anemia, hyperlipidemia, degenerative arthritis, and history of gout. OUTPATIENT MEDICATIONS: Included clonidine, Procardia XL, Lopressor, Femara, ferrous sulfate, Pepcid, Cardura, Keflex, and Lipitor. ALLERGIES: SHE HAS NO KNOWN ALLERGIES TO MEDICATION. SOCIAL HISTORY: She is a nondrinker, nonsmoker. Retired homemaker. FAMILY HISTORY: Noncontributory. The patient was also complaining of mild new-onset left ankle lateral malleolar swelling and pain which occurred this morning. REVIEW OF SYSTEMS: CONSTITUTIONAL: Recurrent fever. HEAD: No headache or seizure. EYES: No change in visual acuity. EARS: No hearing loss. THROAT: No swallowing difficulty. NECK: No stiffness. CARDIAC: Chronic hypertension. PULMONARY: No hemoptysis. GASTROINTESTINAL: GERD. GENITOURINARY: As per HPI. VASCULAR: No claudication. PSYCHOLOGIC: Denied anxiety. NEUROLOGIC: No stroke. ENDOCRINOLOGIC: She has hyperlipidemia. MUSCULOSKELETAL: History of DJD and gout. PHYSICAL EXAMINATION: VITAL SIGNS: Showed a temperature of 99, respirations 19, pulse 71, and blood pressure 154/68 with a pulse ox of 98% on room air. HEENT: Head normocephalic, atraumatic. Eyes: No icterus. Ears: Clear. Throat: Noninjected. NECK: Supple. HEART: Regular S1, S2. No pathological rubs, murmurs, or gallops. LUNGS: Clear. ABDOMEN: Obese, nontender. No palpable organomegaly. No rebound, no guarding. No CVA tenderness. No suprapubic tenderness. EXTREMITIES: She had mild left ankle lateral swelling. No erythema, no warmth. VASCULAR: Legs warm to touch. PSYCHOLOGIC: Alert and oriented x3. NEUROLOGIC: Mild deconditioning. LABORATORY DATA: Sodium 140, K 4.4, chloride 109, bicarb 23, BUN 41, creatinine 2.4, estimated GFR 20 mL per minute, sugar 134. Uric acid 7.9, calcium 8.8. Bilirubin 0.3, AST 36, ALT 27, alk phos 63. White count 6500, hemoglobin 9.1, hematocrit 28.1, MCV 93.7, platelets 305,000. Urinalysis showed large leukocyte esterase, positive bacteria, 100 mg/dL of protein. Chest x-ray was reviewed and it shows well expanded lungs that are clear of infiltrate. There was no pleural effusion, no pneumothorax, cardiac silhouette was normal, no congestive heart failure, no active pulmonary disease was noted. A left ankle x-ray was reviewed and it showed diffuse bony demineralization, no acute fracture or bone destruction, mild degenerate to osteoarthritis was noted in her tibiotalar and talocalcaneal joints. Her ankle mortise was maintained. Her talar dome was intact. There was some periarticular soft swelling noted in the ankle region on x-ray, no evidence of osteomyelitis was noted. IMPRESSION: A 62-year-old female with recurrent urosepsis and comorbidities of metastatic recurrent uterine cancer causing obstructive uropathy requiring bilateral ureteral stents in a patient with stage 3 chronic renal failure as well as hypertensive nephrosclerosis, anemia of chronic disease, hyperlipidemia, peptic ulcer disease with gastroesophageal reflux disease, degenerative arthritis, acute gouty arthritis, obesity, and deconditioning. PLAN: As discussed with the patient, nursing, and family at bedside will be to continue Cardura 4 mg p.o. at bedtime, clonidine 0.1 mg p.o. daily, Colace 100 mg p.o. daily, Femara 2.5 mg p.o. daily, ferrous gluconate 324 mg p.o. t.i.d., Lipitor 10 mg p.o. at dinner time, Lopressor 150 mg p.o. b.i.d., meropenem 500 mg IV every 12 hours, Pepcid 20 mg p.o. at bedtime, Procardia XL 90 mg p.o. daily, Tylenol 650 p.o. every 6 hours p.r.n. pain or temperature greater than 101 and Ultracet 1 tablet p.o. t.i.d. p.r.n. severe pain and Zofran 4 mg IV every 6 hours p.r.n. nausea and vomiting. I have placed a consultation with Dr. Yadiel Weinberg from Urology and Dr. Nilesh Lloyd from Infectious Disease. Blood and urine cultures have been sent. She is ordered to have a heart-healthy diabetic diet and she will have physical and occupational therapy for reconditioning and gait training. I will order Indocin for her newly noted hyperuricemia and acute gout and a surgical shoe has been recommended as well. All of the above was discussed in detail with the patient, , nursing, and co-consultants. Greater than 75 minutes was spent in the care management, review of labs, orders, x-rays, and outlining of orders and treatment plan for this patient today. All questions were answered. Luisa Pa MD MTDD
[2018-05-31] MEDS: MEROPENEM 500 MG in NS 500 MG/50 ML BAG IVPB SCH ×2 (06:10→18:07)
[2018-05-31] MEDS: NIFEdipine 90 mg ER Tab PO SCH (10:35)
[2018-05-31] MEDS: Nystatin 100,000 Units/gm Topical Pow(15 gm) TOP SCH (10:44)
--- NOTE | 2018-05-31 16:28 | CP.PCM.PN ---
Subjective - Date & Time of Evaluation Date of Evaluation: 05/31/18 Time of Evaluation: 15:30 - Subjective Subjective: Infectious Disease Follow Up: May 31, 2018 62 yo female with known history of metastatic uterine carcinoma. The patient is complaining of fevers over 100.0 F for the past 24 hours prior to admission. Ex tensive past medical history of Obesity, hypertension, anemia, hyperlipidemia, GERDs, bilateral hydronephrosis with replaced bilateral urethral stents, chronic renal disease stage III, degenerative arthritis, and COPD. The patient has required Meropenem treatment on her last two hospitalizations. Gram negative rods in urine again. ESR of 130. Noted creatinine up to 2.4 at this time. Patient did have a normal creatinine on 02/15/2018. Objective - Vital Signs/Intake and Output Vital Signs (last 24 hours): Temp Pulse Resp BP Pulse Ox 98.3 F 56 L 20 124/54 L 96 05/31/18 14:00 05/31/18 14:00 05/31/18 14:00 05/31/18 14:00 05/31/18 14:00 Intake and Output: 05/31/18 05/31/18 06:59 18:59 Intake Total 540 480 Output Total 600 600 Balance -60 -120 - Medications Medications: Current Medications Acetaminophen (Tylenol 325mg Tab) 650 mg PO Q6H PRN PRN Reason: Fever >100.4 F Last Admin: 05/30/18 21:24 Dose: 650 mg Atorvastatin Calcium (Lipitor) 10 mg PO DIN [facility] Last Admin: 05/30/18 17:28 Dose: 10 mg Clonidine HCl (Catapres) 0.1 mg PO DAILY [facility] Last Admin: 05/31/18 10:35 Dose: 0.1 mg Docusate Sodium (Colace) 100 mg PO DAILY [facility] Last Admin: 05/31/18 10:35 Dose: 100 mg Doxazosin Mesylate (Cardura) 4 mg PO HS [facility] Last Admin: 05/30/18 21:24 Dose: 4 mg Famotidine (Pepcid) 20 mg PO HS [facility] Last Admin: 05/30/18 21:24 Dose: 20 mg Ferrous Gluconate (Fergon) 324 mg PO TID [facility] Last Admin: 05/31/18 13:26 Dose: 324 mg Meropenem/Sodium Chloride (Merrem Iv 500 Mg/Ns 50 Ml) 500 mg in 50 mls @ 100 mls/hr IVPB Q12H [facility]; Protocol Last Admin: 05/31/18 06:10 Dose: 100 mls/hr Indomethacin (Indocin) 25 mg PO TID [facility] Stop: 06/01/18 10:00 Last Admin: 05/31/18 13:26 Dose: 25 mg Letrozole (Femara) 2.5 mg PO DAILY [facility] Last Admin: 05/31/18 10:34 Dose: 2.5 mg Metoprolol Tartrate (Lopressor) 150 mg PO BID [facility] Last Admin: 05/31/18 10:40 Dose: 150 mg Nifedipine (Procardia Xl) 90 mg PO DAILY [facility] Last Admin: 05/31/18 10:35 Dose: 90 mg Nystatin (Nystop Topical Powder) 0 gm TOP DAILY [facility] Last Admin: 05/31/18 10:44 Dose: 1 appl Ondansetron HCl (Zofran Inj) 4 mg IVP Q6H PRN PRN Reason: Nausea/Vomiting Tramadol/Acetaminophen (Ultracet 37.5/325 Mg) 1 tab PO TID PRN PRN Reason: severe pain - Labs Labs: 05/30/18 01:12 05/30/18 01:12 - Constitutional Appears: Non-toxic, No Acute Distress, Chronically Ill - Head Exam Head Exam: ATRAUMATIC, NORMOCEPHALIC - Eye Exam Eye Exam: EOMI, PERRL Pupil Exam: NORMAL ACCOMODATION, PERRL - ENT Exam ENT Exam: Mucous Membranes Moist, Normal External Ear Exam, TM's Normal Bilaterally - Neck Exam Neck Exam: Full ROM, Normal Inspection - Respiratory Exam Respiratory Exam: Clear to Ausculation Bilateral, NORMAL BREATHING PATTERN. absent: Rales, Rhonchi, Wheezes - Cardiovascular Exam Cardiovascular Exam: REGULAR RHYTHM, RRR, +S1, +S2 - GI/Abdominal Exam GI & Abdominal Exam: Soft, Normal Bowel Sounds. absent: Distended, Tenderness - Extremities Exam Extremities Exam: Full ROM, Normal Inspection - Neurological Exam Neurological Exam: Alert, Awake, CN II-XII Intact, Oriented x3 - Psychiatric Exam Psychiatric exam: Normal Affect, Normal Mood - Skin Skin Exam: Intact, Normal Color Assessment and Plan - Assessment and Plan (Free Text) Assessment: 62 yo female with fevers for 1 day who has had several hospitalization to [facility] [place] with UTI with ESBL+ Pseudomonas and E. coli. Patient with multiple medical issues including recurrent metastatic uterine carcinoma. Will start Meropenem until cultures return based on the previous recent hospitalizations. Supportive care. Gram negative rods on urine culture. Concerns that the patient's creatinine has remained high for the last few weeks even though the creatinine was normal on 02/15/2018. Slowly resolving Fungal rash in intertriginous areas. Topical treatment. Thank you for allowing me to participate in the care of the patient, we will follow with you.
[2018-06-01] MEDS: MEROPENEM 500 MG in NS 500 MG/50 ML BAG IVPB SCH (06:22)
--- NOTE | 2018-06-01 07:08 | PN ---
DATE: 05/31/2018 SUBJECTIVE: This 62-year-old female was examined at her bedside on the morning of 05/31/2018 in the presence of her daughter, Corinna and with nurse, Torin Elliott present. The patient was admitted with urosepsis. She is having low-grade fevers. She denies any chest pain and complains yesterday of left lateral malleolar ankle pain that was reviewed on x-ray showed no fractures, soft tissue swelling was noted as well as an elevated uric acid level. Given her history of intermittent gout, she was giving dosing of oral Indocin and is having marked improvement in ankle pain symptomatology. Her temperature last night was 100, at present is 97.3 and she denies any shaking chills or cough. PHYSICAL EXAMINATION: VITAL SIGNS: Temperature 97.3, respirations 18, pulse 53 and blood pressure 147/67 with a pulse ox of 98% on room air. HEAD: Normocephalic, atraumatic. EYES: No icterus. EARS: Clear. THROAT: Noninjected. NECK: Supple. HEART: Regular S1, S2. LUNGS: Clear. ABDOMEN: Obese. EXTREMITIES: No edema. SKIN: Without rash. NEUROLOGICAL: Intact, but deconditioned. VASCULAR: Legs warm to touch. PSYCHOLOGICAL: Alert and oriented. NEUROLOGIC: Deconditioned. LABORATORY DATA: White count 6500, hemoglobin 9.1, hematocrit 28.1, MCV 93.7, platelets 305,000. Sodium 140, K 4.4, chloride 109, bicarb 23, BUN 41, creatinine 2.4, random blood sugar was 134, uric acid 7.9, calcium 8.8, bilirubin 0.3, AST 36, ALT 27, alk phos 63. Urinalysis showed bacteria. Microbiology; blood culture show no growth at 48 hours and her urine is growing a gram-negative nick, ID and sensitivity to follow. IMPRESSION: A 62-year-old female with recurrent urosepsis and comorbidities of recurrent metastatic uterine cancer, obesity, hypertension, iron-deficiency anemia, hyperlipidemia, fungal perineal rash, peptic ulcer disease with gastroesophageal reflux disease, degenerative arthritis and deconditioning. PLAN: Discussed with the patient, family, nursing at bedside will be to continue Cardura, clonidine, Colace, Femara, Fergon, Indocin for an additional 24 hours and then discontinue this medication. She will continue on Lipitor, Lopressor, IV meropenem 500 mg IV every 12 under the direction of Dr. Nilesh Lloyd from Infectious Disease. She is receiving nystatin topical powder to her fungal dermatitis, oral Pepcid, Procardia, Tylenol, p.r.n. Ultracet and IV Zofran p.r.n. nausea and vomiting. She continues to await the sensitivity and identification of her urine culture. She continues on a heart-healthy renal diabetic diet. She is ordered to have physical therapy for reconditioning and gait training and once cleared by and Infectious Disease, will be discharged to home to the care of her family. It should be noted I have had repeated discussions with the patient's oncologist, Dr. Kathy Coffman, oncologist from [facility] regarding this patient as well. All of the above was discussed with the patient and family at bedside as well as nurse, Earl. All questions were answered. Greater than 35 minutes was spent in the care management, review of labs, orders and outlining of treatment plan and adjustment of medication for this patient today. Luisa Pa MD
[2018-06-01 07:46] LABS: HEMOGLOBIN 8.9 g/dL (12.0-16.0); MEAN CORPUSCULAR HEMOGLOBIN 29.8 pg (25.0-35.0); MEAN CORPUSCULAR HGB CONC 31.7 g/dl (31.0-37.0); MEAN PLATELET VOLUME 8.5 fl (7.0-11.0); RBC 2.99 10^6/uL (3.5-6.1); RED CELL DISTRIBUTION WIDTH 14.3 % (11.5-14.5); WHITE BLOOD COUNT 5.4 10^3/ul (4.5-11.0)
[2018-06-01 08:09] LABS: CALCIUM 8.8 mg/dL (8.4-10.5)
[2018-06-01] MEDS: Nystatin 100,000 Units/gm Topical Pow(15 gm) TOP SCH (10:19)
[2018-06-01] MEDS: NIFEdipine 90 mg ER Tab PO SCH (10:30)
[2018-06-01 14:55] VITALS: BP 133/64; PULSE 61; RESP 20; TEMP 97.6; O2SAT 100
--- NOTE | 2018-06-01 17:47 | CP.PCM.PN ---
Subjective - Date & Time of Evaluation Date of Evaluation: 06/01/18 Time of Evaluation: 15:00 - Subjective Subjective: Infectious Disease Follow Up: June 01, 2018 62 yo female with known history of metastatic uterine carcinoma. The patient is complaining of fevers over 100.0 F for the past 24 hours prior to admission. Ex tensive past medical history of Obesity, hypertension, anemia, hyperlipidemia, GERDs, bilateral hydronephrosis with replaced bilateral urethral stents, chronic renal disease stage III, degenerative arthritis, and COPD. The patient has required Meropenem treatment on her last two hospitalizations. Gram negative rods in urine again. ESR of 130. Noted creatinine up to 2.4 at this time. Patient did have a normal creatinine on 02/15/2018 but the rest of the creatinines taken at [facility] [place] in the past 4 months have been elevated. UTI with Pseudomonas growth. Sensitive to Cipro. Objective - Vital Signs/Intake and Output Vital Signs (last 24 hours): Temp Pulse Resp BP Pulse Ox 97.6 F 61 20 133/64 100 06/01/18 14:00 06/01/18 14:00 06/01/18 14:00 06/01/18 14:00 06/01/18 14:00 Intake and Output: 06/01/18 06/01/18 06:59 18:59 Intake Total 480 480 Output Total 1000 Balance -520 480 - Labs Labs: 06/01/18 07:20 06/01/18 07:20 - Constitutional Appears: Non-toxic, No Acute Distress, Chronically Ill - Head Exam Head Exam: ATRAUMATIC, NORMOCEPHALIC - Eye Exam Eye Exam: EOMI, PERRL Pupil Exam: NORMAL ACCOMODATION, PERRL - ENT Exam ENT Exam: Mucous Membranes Moist, Normal External Ear Exam, TM's Normal Bilaterally - Neck Exam Neck Exam: Full ROM, Normal Inspection - Respiratory Exam Respiratory Exam: Clear to Ausculation Bilateral, NORMAL BREATHING PATTERN. absent: Rales, Rhonchi, Wheezes - Cardiovascular Exam Cardiovascular Exam: REGULAR RHYTHM, RRR, +S1, +S2 - GI/Abdominal Exam GI & Abdominal Exam: Soft, Normal Bowel Sounds. absent: Distended, Tenderness - Extremities Exam Extremities Exam: Full ROM, Normal Inspection - Neurological Exam Neurological Exam: Alert, Awake, CN II-XII Intact, Oriented x3 - Psychiatric Exam Psychiatric exam: Normal Affect, Normal Mood - Skin Skin Exam: Intact, Normal Color Assessment and Plan - Assessment and Plan (Free Text) Assessment: 62 yo female with fevers for 1 day who has had several hospitalization to [facility] [facility] with UTI with ESBL+ Pseudomonas and E. coli. Patient with multiple medical issues including recurrent metastatic uterine carcinoma. Will start Meropenem until cultures return based on the previous recent hospitalizations. Supportive care. Gram negative rods on urine culture. Identification of Pseudomonas. Sensitive to Cipro. Can give Cipro 500mg PO BID for treatment for 14 days as outpatient. I am concerned on whether the concentration of antibiotics reaching the bladder via oral administration has been enough to eradicate the Pseudomonas that has grown in several hospitalizations. Concerns that the patient's creatinine has remained high for the last few weeks even though the creatinine was normal on 02/15/2018. Slowly resolving Fungal rash in intertriginous areas. Topical treatment. Thank you for allowing me to participate in the care of the patient, we will follow with you.
--- NOTE | 2018-06-02 22:48 | DS ---
HISTORY OF PRESENT ILLNESS: This 62-year-old female was examined at her bedside on the afternoon of , 06/01/2018. She is discharged with diagnosis of urinary tract infection, Pseudomonas aeruginosa, and after discussion with Dr. Nilesh Lloyd, will be discharged on a prescription of Cipro 500 mg p.o. b.i.d. #28 tablets or treatment for 14 days. FINAL DIAGNOSES: Urinary tract infection; Pseudomonas aeruginosa; chronic hypertension; obesity; recurrent uterine cancer, metastatic; iron-deficiency anemia; chronic hypertension; chronic renal failure, stage III; hyperlipidemia; peptic ulcer disease with gastroesophageal reflux disease. DISPOSITION: Home. Follow up with her oncologist, Dr. Kathy Oquendo, medical doctor at [facility]. Laboratory Phlebotomist is Dr. Nilesh Lloyd. DISCHARGE DIET: 2 g sodium, heart-healthy, no added sweets. DISCHARGE MEDICATIONS: Cardura 4 mg at bedtime, clonidine 0.1 mg p.o. daily, Colace 100 mg p.o. daily, Femara 2.5 mg p.o. daily, ferrous gluconate 324 mg p.o. t.i.d., Lipitor 10 mg p.o. daily, Lopressor 150 mg b.i.d., Pepcid 20 mg p.o. at bedtime, Procardia XL 90 mg daily and Cipro 500 mg p.o. b.i.d. #28, no refill. SUMMARY: This 62-year-old female was admitted to [facility] with dysuria and fever and found to have a Pseudomonas aeruginosa urinary tract infection with blood cultures no growth at 48 hours and sensitivity to ciprofloxacin. This was discussed with Dr. Nilesh Lloyd who concurred with the need for ciprofloxacin 500 mg p.o. b.i.d. #28 tablets. At the time of discharge, temperature was 98.4, respirations 18, pulse 62 and blood pressure 138/54. Pulse ox 99% on room air. White count 5400, hemoglobin 8.9, hematocrit 28.1, MCV 94, and platelets 296. Sodium 141, K 4.3, chloride 112, bicarb is 21, BUN 38, creatinine 2.6, random blood sugar of 114. Calcium 8.8. Bilirubin 0.3, AST 36, ALT 27, alk phos 63. The patient is discharged to home to the care of her family. She knows to follow up with Dr. Oquendo, medical doctor oncology as per her recommendation. She was given Dr. Yadiel Weinberg's phone number for urological followup in his office regarding the timing of changing her ureteral stents and greater than 35 minutes was spent in the discharge management of this patient today, questions were reviewed with herself and her nurse at bedside. All questions were answered. Luisa Pa MD [facility]
== END 2018-06-01 17:20 | disposition home health service (06) | DRG 690 ==
LOC: ED 23:34 → ERH 05-30 06:32 → 5RSO 05-30 09:59
PROVIDERS: ADMIT Internal Medicine; ATTEND Internal Medicine
DX: N39.0 Urinary tract infection, site not specified (principal); B96.5 Pseudomonas (aeruginosa) (mallei) (pseudomallei) as the cause of diseases classified elsewhere; I12.9 Hypertensive chronic kidney disease with stage 1 through stage 4 chronic kidney disease, or unspecified chronic kidney disease; N18.3 Chronic kidney disease, stage 3 (moderate); D50.9 Iron deficiency anemia, unspecified; D63.8 Anemia in other chronic diseases classified elsewhere; J44.9 Chronic obstructive pulmonary disease, unspecified; B36.9 Superficial mycosis, unspecified; K21.9 Gastro-esophageal reflux disease without esophagitis; C55 Malignant neoplasm of uterus, part unspecified; E78.00 Pure hypercholesterolemia, unspecified; E78.5 Hyperlipidemia, unspecified; M10.9 Gout, unspecified; K27.9 Peptic ulcer, site unspecified, unspecified as acute or chronic, without hemorrhage or perforation; N13.9 Obstructive and reflux uropathy, unspecified; M19.90 Unspecified osteoarthritis, unspecified site

== ENCOUNTER 2018-06-04 20:58 | Inpatient (IN) | payer BC ==
[2018-06-04 21:08] VITALS: BMI 36.3
[2018-06-04] MEDS ORDERED: Sodium Chloride 0.9% 1,000 ML IV ONE (21:12)
--- NOTE | 2018-06-04 21:28 | ED PDOC ---
Arrival/HPI - General Chief Complaint: Fever Time Seen by Provider: 06/04/18 21:05 Historian: Patient, Spouse - History of Present Illness Narrative History of Present Illness (Text): 06/04/18 21:16 Temi Caldera is a 62 year old female, whose past medical history includes recurrent metastatic uterine cancer, obstructive uropathy s/p ureteral stents, chronic renal failure, hypertension, hyperlipidemia, anemia, and COPD, who pr esents to the Emergency department brought in by EMS accompanied by complaining of fever. Patient states she developed a fever at home on 06/01/2018 following discharge from the hospital. Patient took Tylenol at home with relief but the fever returned tonight, max temperature of 101.5. Patient denies any chest pain, shortness of breath, nausea, vomiting, neck pain, headache, dizziness, or any other complaints. PMD: Dr. Pa Infectious Disease: Dr. Lloyd Symptom Onset: Gradual Symptom Course: Unchanged Activities at Onset: Light Context: Home Past Medical History - Provider Review Nursing Documentation Reviewed: Yes - Infectious Disease Hx of Infectious Diseases: None - Cardiac Hx Cardiac Disorders: Yes Hx Hypertension: Yes - Pulmonary Hx Chronic Obstructive Pulmonary Disease (COPD): Yes - Neurological Hx Neurological Disorder: No - HEENT Hx HEENT Disorder: Yes (uses reading glasses) - Renal Hx Renal Failure: Yes (chronic stg 3) - Endocrine/Metabolic Hx Endocrine Disorders: No - Hematological/Oncological Hx Blood Disorders: Yes (sepsis from uti, hx of code sepsis) Hx Anemia: Yes (iron deficiency) Hx Cancer: Yes (uterine) Hx Chemotherapy: Yes Hx Metastasis: Yes (liver) Other/Comment: dx 2010 had chemo and radiation, dr elise butler [facility] tie carrier, oncologist - Integumentary Hx Dermatological Disorder: Yes - Musculoskeletal/Rheumatological Hx Falls: Yes (past) - Gastrointestinal Hx Gastrointestinal Disorders: Yes (obese) Hx Gastroesophageal Reflux: Yes - Genitourinary/Gynecological Hx Genitourinary Disorders: Yes Hx Hematuria: Yes Hx Incontinence: Yes (started yesterday 05/29/18 as per pt) Hx Urinary Tract Infection: Yes (mutiple tx at [place] and [facility] [place]) Other/Comment: hx vre ad esbl as per past records but when pt asked she is not sure, pubic/suprapubic swelling and redness, red raised rash right buttock, redness to left buttock, redness travels from buttocks, perianal, b/l groin pubic, suprapubic, abd fold, right thigh 2cm x 1.5 cm pink pigmented slin, thick toenails - Psychiatric Hx Psychophysiologic Disorder: No Hx Substance Use: No - Surgical History Hx Cholecystectomy: Yes Hx Hysterectomy: Yes Other/Comment: cysto with stent 03/31/18 - Anesthesia Hx Anesthesia: Yes Hx Anesthesia Reactions: No Hx Malignant Hyperthermia: No - Suicidal Assessment Feels Threatened In Home Enviroment: No Family/Social History - Physician Review Nursing Documentation Reviewed: Yes Family/Social History: Unknown Family HX Smoking Status: Never Smoked Hx Alcohol Use: No Hx Substance Use: No Hx Substance Use Treatment: No Allergies/Home Meds Allergies/Adverse Reactions: Allergies No Known Allergies Allergy (Verified 06/04/18 22:34) Home Medications: Home Meds Medication Instructions Recorded Confirmed Atorvastatin [Lipitor] 10 mg PO DAILY 05/13/18 06/04/18 Metoprolol Tartrate [Lopressor] 150 mg PO BID 05/13/18 06/04/18 NIFEdipine ER [Procardia XL] 90 mg PO DAILY 05/13/18 06/04/18 Letrozole [Femara] 2.5 mg PO 0900 05/14/18 06/04/18 Review of Systems - Physician Review All systems were reviewed & negative as marked: Yes - Review of Systems Constitutional: Fevers Eyes: Normal ENT: Normal Respiratory: Normal. absent: SOB, Cough Cardiovascular: Normal. absent: Chest Pain Gastrointestinal: Normal. absent: Abdominal Pain, Diarrhea, Nausea, Vomiting Musculoskeletal: Normal. absent: Back Pain, Neck Pain Skin: Normal. absent: Rash Neurological: Normal. absent: Headache, Dizziness Endocrine: Normal Hemo/Lymphatic: Normal Psychiatric: Normal Physical Exam Vital Signs Reviewed: Yes Vital Signs Temp Pulse Resp BP Pulse Ox 06/04/18 21:14 98.9 F 63 18 155/68 H 96 Temperature: Afebrile Blood Pressure: Hypertensive Pulse: Regular Respiratory Rate: Normal Appearance: Positive for: Well-Appearing, Non-Toxic, Comfortable Pain Distress: None Mental Status: Positive for: Alert and Oriented X 3 - Systems Exam Head: Present: Atraumatic, Normocephalic Pupils: Present: PERRL Extroacular Muscles: Present: EOMI Conjunctiva: Present: Normal Mouth: Present: Moist Mucous Membranes Neck: Present: Normal Range of Motion. No: Meningeal Signs, MIDLINE TENDERNESS, Paraspinal Tenderness Respiratory/Chest: Present: Clear to Auscultation, Good Air Exchange. No: Respiratory Distress, Accessory Muscle Use Cardiovascular: Present: Regular Rate and Rhythm, Normal S1, S2. No: Murmurs Abdomen: No: Tenderness, Distention, Peritoneal Signs Back: Present: Normal Inspection. No: CVA Tenderness, Midline Tenderness, Paraspinal Tenderness Upper Extremity: Present: Normal Inspection. No: Cyanosis, Edema Lower Extremity: Present: Normal Inspection. No: Edema Neurological: Present: GCS=15, CN II-XII Intact, Speech Normal Skin: Present: Warm, Dry, Normal Color. No: Rashes Psychiatric: Present: Alert, Oriented x 3, Normal Insight, Normal Concentration Medical Decision Making ED Course and Treatment: 06/04/18 21:16 Impression: 62 year old female complaining of fever tonight. Plan: -- EKG -- Chest X-ray -- Labs, VBG, blood cultures -- Urinalysis, urine cultures -- IV fluids -- Reassess and disposition Prior Visits: Notes and results from previous visits were reviewed. On 05/30/2018, patient was seen in the Emergency department for fever. Pt was admitted to the hospital for further evaluation. Progress Notes: Reviewed EKG, NSR at 67 bpm. LAD. RBBB. Inferior infarct. 06/04/18 21:58 Chest X-ray reviewed, shows no acute processes. 06/04/18 23:[address] Pa, who is aware and agrees with plan. Accepts pt in to her service. Pt will go to [facility] for fever of unknown origin. Requests Go on consult. - Lab Interpretations I have reviewed the lab results: Yes - RAD Interpretation Radiology Orders: 06/04/18 21:12 CHEST PORTABLE [RAD] Stat Social Work Supervisor: ED Physician - EKG Interpretation Interpreted by ED Physician: Yes Type: 12 lead EKG - Medication Orders Current Medication Orders: Sodium Chloride (Sodium Chloride 0.9%) 1,000 mls @ 2,000 mls/hr IV .Q30M ONE Stop: 06/04/18 21:41 - Scribe Statement The provider has reviewed the documentation as recorded by the Scribe Kenzie Amy Provider Scribe Attestation: All medical record entries made by the Scribe were at my direction and personally dictated by me. I have reviewed the chart and agree that the record accurately reflects my personal performance of the history, physical exam, medical decision making, and the department course for this patient. I have also personally directed, reviewed, and agree with the discharge instructions and d isposition. Disposition/Present on Arrival - Present on Arrival Any Indicators Present on Arrival: No History of DVT/PE: No History of Uncontrolled Diabetes: No Urinary Catheter: No History of Decub. Ulcer: No History Surgical Site Infection Following: None - Disposition Have Diagnosis and Disposition been Completed?: Yes Diagnosis: Fever of unknown origin (FUO) Disposition: HOSPITALIZED Disposition Time: 23:22 Condition: STABLE Referrals: Luisa Pa MD [Primary Care Provider] - Follow up with primary Forms: [email or web address] (Kazakh)
[2018-06-04 22:02] LABS: VENOUS BLOOD GAS PO2 34 mm/Hg (30-55); VENOUS BLOOD PH 7.29 (7.32-7.43)
[2018-06-04 22:04] LABS: BASO # 0.01 K/mm3 (0.0-2.0); BASO % 0.1 % (0.0-3.0); EOS # 0.2 (0.0-0.7); EOS % 2.2 % (1.5-5.0); GRAN # 6.86 (1.4-6.5); HEMOGLOBIN 9.5 g/dL (12.0-16.0); LYMPH # 0.7 (1.2-3.4); LYMPH % 8.3 % (22.0-35.0); MEAN CELL VOLUME 94.6 fl (80.0-105.0); MEAN CORPUSCULAR HEMOGLOBIN 30.2 pg (25.0-35.0); MEAN CORPUSCULAR HGB CONC 31.9 g/dl (31.0-37.0); MEAN PLATELET VOLUME 8.4 fl (7.0-11.0); MONO # 0.7 (0.1-0.6); MONO % 8.4 % (1.0-6.0); RBC 3.15 10^6/uL (3.5-6.1); RED CELL DISTRIBUTION WIDTH 14.6 % (11.5-14.5); WHITE BLOOD COUNT 8.5 10^3/ul (4.5-11.0)
[2018-06-04 22:12] LABS: INR 1.27; PARTIAL THROMBOPLASTIN TIME 31.2 Seconds (25.1-36.5); PROTHROMBIN TIME 14.5 SECONDS (9.4-12.5)
[2018-06-04 22:32] LABS: ALB/GLOB RATIO 0.8 (1.1-1.8); ALBUMIN 3.5 g/dL (3.0-4.8); CALCIUM 8.8 mg/dL (8.4-10.5)
[2018-06-04] MEDS ORDERED: Sodium Chloride 0.9% 1,000 ML IV STA (23:27)
[2018-06-04] MEDS ORDERED: MEROPENEM 500 MG in NS 500 MG/50 ML BAG IVPB ONE (23:29)
[2018-06-05 00:23] LABS: URINE BILIRUBIN NEGATIVE (NEGATIVE); URINE BLOOD LARGE (NEGATIVE); URINE GLUCOSE (UA) NEGATIVE (NEGATIVE); URINE LEUKOCYTE ESTERASE LARGE Leu/uL (NEGATIVE); URINE PROTEIN >=300 mg/dL (<30 mg/dL); URINE UROBILINOGEN 0.2 E.U./dL (<1 E.U./dL)
[2018-06-05 00:24] LABS: URINE APPEARANCE CLOUDY (CLEAR); URINE COLOR LIGHT RED (YELLOW)
[2018-06-05 00:36] LABS: URINE BACTERIA MOD (NEG); URINE EPITHELIAL CELLS 0 - 2 /hpf (0-5); URINE RBC 15 - 20 /hpf (0-2); URINE WBC 15 - 20 /hpf (0-6)
--- NOTE | 2018-06-05 09:32 | RAD ---
Date of service: 06/04/2018 HISTORY: Sepsis Patient COMPARISON: 05/30/2018 FINDINGS: LUNGS: No active pulmonary disease. PLEURA: No significant pleural effusion identified, no pneumothorax apparent. CARDIOVASCULAR: No atherosclerotic calcification present No radiographic findings to suggest acute or significant cardiovascular disease. OSSEOUS STRUCTURES: No significant abnormalities. VISUALIZED UPPER ABDOMEN: Normal. OTHER FINDINGS: None. IMPRESSION: No active disease. No significant interval change compared to the prior examination(s).
[2018-06-05] MEDS: NIFEdipine 90 mg ER Tab PO SCH (15:34)
--- NOTE | 2018-06-05 16:36 | CARD ---
APPROVED REPORT Date of service: 06/04/2018 EKG Measurement Heart [id number] P14 [id number] <Conclusion> Normal sinus rhythm Left axis deviation Right bundle branch block Abnormal ECG
[2018-06-05] MEDS: Silver Sulfadiazine 1% Cream (25 gm) TP SCH (17:46)
[2018-06-05] MEDS: Sodium Chloride 0.9% 1,000 ML IV SCH (17:48)
--- NOTE | 2018-06-05 17:50 | CP.PCM.CON ---
History of Present Illness - History of Present Illness History of Present Illness: Infectious Disease Consultation: June 05, 2018 62 yo female with known history of metastatic uterine carcinoma. The patient is complaining of fevers up to 101.6 F for the past 24 hours prior to admission. The patient developed borderline fevers within a day from discharge from [facility] even while on Cipro PO BID. Spoke with the patient and her daughter over the phone and suggested initially to continue Cipro and utilize Tylenol. Patient was afebrile the next day but then developed fevers up to 101.6 F last night. Spoke with family over the phone again and suggested that they return to [facility] for IV antibiotic care. Extensive past medical history of Obesity, hypertension, anemia, hyperlipidemia, GERDs, bilateral hydronephrosis with replaced bilateral urethral stents, chronic renal disease stage III, degenerative arthritis, and COPD. The patient has required Meropenem treatment on her last three hospitalizations. PMHx: Uterine Carcinoma with metastatic disease, Obesity, hypertension, anemia, hyperlipidemia, GERDs, bilateral hydronephrosis with replaced bilateral urethral stents, chronic renal disease stage III, degenerative arthritis, and COPD PSHx: Bilateral urethral stents Allergies: NKDA Social Hx: No tobacco, no EtOH, or illicit drug use Active Medications Acetaminophen (Tylenol 325mg Tab) 650 mg PO Q6H PRN PRN Reason: Fever >100.4 F Last Admin: 06/05/18 15:34 Dose: 650 mg Atorvastatin Calcium (Lipitor) 10 mg PO DIN [facility] Clonidine HCl (Catapres) 0.1 mg PO DAILY [facility] Last Admin: 06/05/18 15:30 Dose: 0.1 mg Docusate Sodium (Colace) 100 mg PO DAILY [facility] Doxazosin Mesylate (Cardura) 4 mg PO HS [facility] Famotidine (Pepcid) 20 mg PO HS [facility] Ferrous Gluconate (Fergon) 324 mg PO TID [facility] Sodium Chloride (Sodium Chloride 0.9%) 1,000 mls @ 100 mls/hr IV .Q10H [facility] Stop: 06/08/18 10:00 Letrozole (Femara) 2.5 mg PO DAILY [facility] Metoprolol Tartrate (Lopressor) 150 mg PO BID [facility] Nifedipine (Procardia Xl) 90 mg PO DAILY [facility] Last Admin: 06/05/18 15:34 Dose: 90 mg Ondansetron HCl (Zofran Inj) 4 mg IVP Q6H PRN PRN Reason: Nausea/Vomiting Silver Sulfadiazine (Silvadene 1% 25 Gm) 0 gm TP TID [facility] Tramadol/Acetaminophen (Ultracet 37.5/325 Mg) 1 tab PO Q6H PRN PRN Reason: severe pain Family Hx: None given ROS: Patient stating fever. No headaches, dizziness, chest pain, abdominal pain, melena, hematuria, hematemesis, hematochezia, depression, anxiety Past Patient History - Infectious Disease Hx of Infectious Diseases: None - Past Social History Smoking Status: Never Smoked - CARDIAC Hx Cardiac Disorders: Yes Hx Hypercholesterolemia: Yes Hx Hypertension: Yes Hx Peripheral Edema: Yes - PULMONARY Hx Chronic Obstructive Pulmonary Disease (COPD): Yes - NEUROLOGICAL Hx Neurological Disorder: No - HEENT Hx HEENT Problems: Yes (uses reading glasses) - RENAL Hx Renal Failure: Yes (chronic stg 3) - ENDOCRINE/METABOLIC Hx Endocrine Disorders: No - HEMATOLOGICAL/ONCOLOGICAL Hx Blood Disorders: Yes (sepsis from uti, hx of code sepsis) Hx Anemia: Yes (iron deficiency) Hx Cancer: Yes (uterine) Hx Chemotherapy: Yes Hx Metastesis: Yes (liver) Other/Comment: dx 2010 had chemo and radiation, dr elise butler [facility] [place], oncologist - INTEGUMENTARY Hx Dermatological Problems: Yes - MUSCULOSKELETAL/RHEUMATOLOGICAL Hx Musculoskeletal Disorders: Yes Hx Falls: Yes (past) - GASTROINTESTINAL Hx Gastrointestinal Disorders: Yes (obese) Hx Gastroesophageal Reflux: Yes - GENITOURINARY/GYNECOLOGICAL Hx Genitourinary Disorders: Yes Hx Hematuria: Yes Hx Incontinence: Yes Hx Urinary Tract Infection: Yes ([place] [facility] [place] Other/Comment: hx VRE and ESBL as per past records but when pt asked she is not sure, pubic/suprapubic swelling and redness, red raised rash right buttock, redness to left buttock, redness travels from buttocks, perianal, b/l groin pubic, suprapubic, abd fold, right thigh 2cm x 1.5 cm pink pigmented slin, thick toenails - PSYCHIATRIC Hx Psychophysiologic Disorder: No - SURGICAL HISTORY Hx Surgeries: Yes Hx Cholecystectomy: Yes Hx Hysterectomy: Yes Other/Comment: cysto with stent 03/31/18 - ANESTHESIA Hx Anesthesia: Yes Hx Anesthesia Reactions: No Hx Malignant Hyperthermia: No Meds Allergies/Adverse Reactions: Allergies Allergy/AdvReac Type Severity Reaction Status Date / Time No Known Allergies Allergy Verified 06/04/18 22:34 - Medications Medications: Current Medications Acetaminophen (Tylenol 325mg Tab) 650 mg PO Q6H PRN PRN Reason: Fever >100.4 F Last Admin: 06/05/18 15:34 Dose: 650 mg Atorvastatin Calcium (Lipitor) 10 mg PO DIN [facility] Clonidine HCl (Catapres) 0.1 mg PO DAILY [facility] Last Admin: 06/05/18 15:30 Dose: 0.1 mg Docusate Sodium (Colace) 100 mg PO DAILY [facility] Doxazosin Mesylate (Cardura) 4 mg PO HS [facility] Famotidine (Pepcid) 20 mg PO HS [facility] Ferrous Gluconate (Fergon) 324 mg PO TID [facility] Sodium Chloride (Sodium Chloride 0.9%) 1,000 mls @ 100 mls/hr IV .Q10H [facility] Stop: 06/08/18 10:00 Letrozole (Femara) 2.5 mg PO DAILY [facility] Metoprolol Tartrate (Lopressor) 150 mg PO BID [facility] Nifedipine (Procardia Xl) 90 mg PO DAILY [facility] Last Admin: 06/05/18 15:34 Dose: 90 mg Ondansetron HCl (Zofran Inj) 4 mg IVP Q6H PRN PRN Reason: Nausea/Vomiting Silver Sulfadiazine (Silvadene 1% 25 Gm) 0 gm TP TID [facility] Tramadol/Acetaminophen (Ultracet 37.5/325 Mg) 1 tab PO Q6H PRN PRN Reason: severe pain Physical Exam - Constitutional Appears: Non-toxic, No Acute Distress, Chronically Ill - Head Exam Head Exam: ATRAUMATIC, NORMOCEPHALIC - Eye Exam Eye Exam: EOMI, PERRL Pupil Exam: NORMAL ACCOMODATION, PERRL - ENT Exam ENT Exam: Mucous Membranes Moist, Normal External Ear Exam, TM's Normal Bilaterally - Neck Exam Neck exam: Positive for: Full Rom, Normal Inspection - Respiratory Exam Respiratory Exam: Clear to Auscultation Bilateral, NORMAL BREATHING PATTERN. absent: Rales, Rhonchi, Wheezes - Cardiovascular Exam Cardiovascular Exam: REGULAR RHYTHM, RRR, +S1, +S2 - GI/Abdominal Exam GI & Abdominal Exam: Normal Bowel Sounds, Soft. absent: Distended, Tenderness - Extremities Exam Extremities exam: Positive for: full ROM, normal inspection - Neurological Exam Neurological exam: Alert, CN II-XII Intact, Oriented x3 - Psychiatric Exam Psychiatric exam: Normal Affect, Normal Mood - Skin Skin Exam: Intact, Normal Color Results - Vital Signs Recent Vital Signs: Last Vital Signs Temp 101.1 F H 06/05/18 16:19 Pulse 90 06/05/18 16:19 Resp 20 06/05/18 16:19 BP 177/75 H 06/05/18 16:19 Pulse Ox 97 06/05/18 16:19 - Labs Result Diagrams: 06/04/18 21:40 06/04/18 21:40 Labs: Laboratory Results - last 24 hr 06/04/18 06/04/18 06/04/18 21:40 21:40 21:40 WBC 8.5 D RBC 3.15 L Hgb 9.5 L Hct 29.8 L MCV 94.6 MCH 30.2 MCHC 31.9 RDW 14.6 H Plt Count 334 MPV 8.4 Gran % 81.0 H Lymph % (Auto) 8.3 L [place] % (Auto) 8.4 H Eos % (Auto) 2.2 Baso % (Auto) 0.1 Gran # 6.86 H Lymph # (Auto) 0.7 L [place] # (Auto) 0.7 H Eos # (Auto) 0.2 Baso # (Auto) 0.01 PT 14.5 H INR 1.27 APTT 31.2 pO2 34 VBG pH 7.29 L VBG pCO2 40.0 VBG HCO3 19.2 L VBG Total CO2 20.4 L VBG O2 Sat (Calc) 60.1 VBG Base Excess -7.0 L VBG Potassium 5.0 Sodium 139.0 Chloride 107.0 Glucose 165 H Lactate 1.1 FiO2 21.0 Potassium Carbon Dioxide Anion Gap BUN Creatinine Est GFR ( Amer) Est GFR (Non-Af Amer) Random Glucose Calcium Phosphorus Magnesium Total Bilirubin AST ALT Alkaline Phosphatase Total Protein Albumin Globulin Albumin/Globulin Ratio Venous Blood Potassium 5.0 Urine Color Urine Appearance Urine pH Ur Specific Wilson Urine Protein Urine Glucose (UA) Urine Ketones Urine Blood Urine Nitrate Urine Bilirubin Urine Urobilinogen Ur Leukocyte Esterase Urine RBC Urine WBC Ur Epithelial Cells Urine Bacteria 06/04/18 06/05/18 21:40 00:15 WBC RBC Hgb Hct MCV MCH MCHC RDW Plt Count MPV Gran % Lymph % (Auto) [place] % (Auto) Eos % (Auto) Baso % (Auto) Gran # Lymph # (Auto) [place] # (Auto) Eos # (Auto) Baso # (Auto) PT INR APTT pO2 VBG pH VBG pCO2 VBG HCO3 VBG Total CO2 VBG O2 Sat (Calc) VBG Base Excess VBG Potassium Sodium 138 Chloride 109 H Glucose Lactate FiO2 Potassium 5.1 H Carbon Dioxide 19 L Anion Gap 15 BUN 47 H Creatinine 3.2 H Est GFR ( Amer) 18 Est GFR (Non-Af Amer) 15 Random Glucose 162 H Calcium 8.8 Phosphorus 5.7 H Magnesium 2.1 Total Bilirubin 0.4 AST 32 ALT 33 Alkaline Phosphatase 74 Total Protein 8.0 Albumin 3.5 Globulin 4.4 Albumin/Globulin Ratio 0.8 L Venous Blood Potassium Urine Color Light red Urine Appearance Cloudy Urine pH 6.0 Ur Specific Wilson 1.020 Urine Protein >=300 H Urine Glucose (UA) Negative Urine Ketones Negative Urine Blood Large H Urine Nitrate Positive H Urine Bilirubin Negative Urine Urobilinogen 0.2 Ur Leukocyte Esterase Large H Urine RBC 15 - 20 Urine WBC 15 - 20 Ur Epithelial Cells 0 - 2 Urine Bacteria Mod Assessment & Plan - Assessment and Plan (Free Text) Assessment: 62 yo female with fevers for 1 day who has had several hospitalization to [facility] with UTI with ESBL+ Pseudomonas and E. coli. Patient with multiple medical issu es including recurrent metastatic uterine carcinoma. Was on Cipro PO but developed fevers within three days of her last discharge from [facility]. Will start Meropenem until cultures return based on the previous recent hospitalizations. Supportive care. The patient will need at least 10 days of IV meropenem especially if the cultures return with the same organism as in the past hospitalizations. Med ications can be given in hospital or via home IV infusion. Thank you for allowing me to participate in the care of the patient, we will follow with you.
[2018-06-05] MEDS: MEROPENEM 500 MG in NS 500 MG/50 ML BAG IVPB SCH (22:26)
[2018-06-06 07:15] LABS: HEMOGLOBIN 8.9 g/dL (12.0-16.0); MEAN CELL VOLUME 92.6 fl (80.0-105.0); MEAN CORPUSCULAR HEMOGLOBIN 29.8 pg (25.0-35.0); MEAN CORPUSCULAR HGB CONC 32.1 g/dl (31.0-37.0); MEAN PLATELET VOLUME 8.5 fl (7.0-11.0); RBC 2.99 10^6/uL (3.5-6.1); RED CELL DISTRIBUTION WIDTH 14.5 % (11.5-14.5); WHITE BLOOD COUNT 6.6 10^3/ul (4.5-11.0)
[2018-06-06 07:24] LABS: CALCIUM 8.4 mg/dL (8.4-10.5)
--- NOTE | 2018-06-06 08:42 | HP ---
DATE OF EXAM: 06/05/2018 HISTORY OF PRESENT ILLNESS: This 62-year-old female was examined at her bedside on the cardiac unit of the [facility] on the afternoon of 06/05/2018. She presented to the [facility] ER late last evening with fever, chills and was noted to have a T-max of 100.9 on admission. The patient has a significant past medical history of recurrent metastatic uterine cancer with complications including bilateral ureteral obstruction with chronic renal failure stage III and comorbidities of obesity, chronic hypertension, iron-deficiency anemia, anemia of chronic disease, hyperlipidemia, recurrent urinary tract infections, peptic ulcer disease with gastroesophageal reflux disease and degenerative arthritis. It should be noted that the patient has been admitted numerous times for recurrent urinary tract infections and has had isolates including E-coli, Pseudomonas, Proteus and most recently was discharged with a urinary tract infection consistent with Pseudomonas aeruginosa for which she was sent home on ciprofloxacin 500 mg b.i.d. She states she was taking her Cipro, however, did experience fever and chills and came to the [facility] for further evaluation of the above. At present, she is in a normal sinus rhythm on the site monitor and denies any chest pain but did have a temperature of 100.4 earlier today. PHYSICAL EXAMINATION: GENERAL: Patient is alert and oriented x3. HEAD: Normocephalic, atraumatic. EYES: No icterus. EARS: Clear. THROAT: Noninjected. NECK: Supple. HEART: Was regular S1, S2. LUNGS: Clear. ABDOMEN: Obese, nontender. No palpable organomegaly. EXTREMITIES: No edema. SKIN: Without rash. NEUROLOGICAL: Deconditioned but intact. VASCULAR: Legs warm to touch. PSYCHOLOGICAL: Alert and oriented x3. VITAL SIGNS: Showed temperature 101.1, respirations 20, pulse 90, blood pressure 170/75. LABORATORY DATA: Labs show white count 8500, hemoglobin 9.5, hematocrit 29.8, platelets 334,000. PT/INR 1.27, PTT 31.2. Sodium 138, K 5.1, chloride 109, bicarb 19, BUN 47, creatinine 3.2. Estimated GFR 15 mL per minute, glucose 162, calcium 8.8, phosphorous 5.7, magnesium 2.1, bilirubin 0.4, AST 32, ALT 33, alk phos 74. Urinalysis showed moderate bacteria with large leukocyte esterase. Chest x-ray was reviewed. It showed no active pulmonary disease, no pleural effusions, no pneumothorax, no obvious infiltrates. EKG was reviewed. It showed normal sinus rhythm with nonspecific ST-T wave changes. IMPRESSION: A 62-year-old female with sepsis, rule out recurrent urosepsis and comorbidities of recurrent metastatic uterine cancer, obesity, hypertension, anemia of chronic disease, iron-deficiency anemia, hyperlipidemia, degenerative arthritis, deconditioning. PLAN: To continue Cardura, clonidine, Colace, Femara, Fergon, Lipitor, Lopressor, IV meropenem, Pepcid, Procardia XL, Silvadene to skin sores, 0.9 saline at 100 mL/hour, Tylenol, Ultracet p.r.n. and Zofran. She is ordered to have a renal heart-healthy diet. T4 has been requested. Blood and urine cultures have been sent. She will have fall precautions, out of bed to chair ordered with assistance and physical therapy for ambulation safety while continuing cardiac monitoring. A consultation with Dr. Nilesh Lloyd from Infectious Disease has been ordered and greater than 75 minutes was spent in the care, review of labs, x-rays, EKGs, outlining of orders, treatment plans and discussion of this patient with herself and nurse, Leticia Maynard, registered nurse. All questions were answered. Luisa Pa MD MTDD
[2018-06-06] MEDS: MEROPENEM 500 MG in NS 500 MG/50 ML BAG IVPB SCH ×2 (09:51→21:36)
[2018-06-06] MEDS: NIFEdipine 90 mg ER Tab PO SCH (09:52)
--- NOTE | 2018-06-06 20:16 | CP.PCM.PN ---
Subjective - Date & Time of Evaluation Date of Evaluation: 06/06/18 Time of Evaluation: 19:00 - Subjective Subjective: Infectious Disease Follow Up: June 06, 2018 62 yo female with known history of metastatic uterine carcinoma. The patient is complaining of fevers up to 101.6 F for the past 24 hours prior to admission. T he patient developed borderline fevers within a day from discharge from [facility] even while on Cipro PO BID. Spoke with the patient and her daughter over the phone and suggested initially to continue Cipro and utilize Tylenol. Patient was afebrile the next day but then developed fevers up to 101.6 F last night. Spoke with family over the phone again and suggested that they return to [facility] for IV antibiotic care. Extensive past medical history of Obesity, hypertension, anemia, hyperlipidemia, GERDs, bilateral hydronephrosis with replaced bilateral urethral stents, chronic renal disease stage III, degenerative arthritis, and COPD. The patient has required Meropenem treatment on her last three h ospitalizations. Awaiting repeat urine cultures. Cannot rule out whether fever episodes are secondary to the metastatic uterine carcinoma. Objective - Vital Signs/Intake and Output Vital Signs (last 24 hours): Temp Pulse Resp BP Pulse Ox 99.2 F 70 18 121/62 98 06/06/18 17:43 06/06/18 17:43 06/06/18 17:43 06/06/18 17:43 06/06/18 17:43 Intake and Output: 06/06/18 06/07/18 18:59 06:59 Intake Total 120 Output Total 0 Balance 120 - Medications Medications: Current Medications Acetaminophen (Tylenol 325mg Tab) 650 mg PO Q6H PRN PRN Reason: Fever >100.4 F Last Admin: 06/05/18 15:34 Dose: 650 mg Atorvastatin Calcium (Lipitor) 10 mg PO DIN [facility] Last Admin: 06/06/18 17:44 Dose: 10 mg Clonidine HCl (Catapres) 0.1 mg PO DAILY [facility] Last Admin: 06/06/18 09:50 Dose: 0.1 mg Docusate Sodium (Colace) 100 mg PO DAILY [facility] Last Admin: 06/06/18 09:51 Dose: 100 mg Doxazosin Mesylate (Cardura) 4 mg PO HS [facility] Last Admin: 06/05/18 21:07 Dose: 4 mg Famotidine (Pepcid) 20 mg PO HS [facility] Last Admin: 06/05/18 21:07 Dose: 20 mg Ferrous Gluconate (Fergon) 324 mg PO TID [facility] Last Admin: 06/06/18 17:45 Dose: 324 mg Sodium Chloride (Sodium Chloride 0.9%) 1,000 mls @ 100 mls/hr IV .Q10H [facility] Stop: 06/08/18 10:00 Last Admin: 06/05/18 17:48 Dose: 100 mls/hr Meropenem/Sodium Chloride (Merrem Iv 500 Mg/Ns 50 Ml) 500 mg in 50 mls @ 100 mls/hr IVPB Q12 [facility]; Protocol Last Admin: 06/06/18 09:51 Dose: 100 mls/hr Letrozole (Femara) 2.5 mg PO DAILY [facility] Last Admin: 06/06/18 10:03 Dose: 2.5 mg Metoprolol Tartrate (Lopressor) 150 mg PO BID [facility] Last Admin: 06/06/18 17:43 Dose: 150 mg Nifedipine (Procardia Xl) 90 mg PO DAILY [facility] Last Admin: 06/06/18 09:52 Dose: 90 mg Ondansetron HCl (Zofran Inj) 4 mg IVP Q6H PRN PRN Reason: Nausea/Vomiting Silver Sulfadiazine (Silvadene 1% 25 Gm) 0 gm TP TID [facility] Last Admin: 06/05/18 17:46 Dose: 1 gm Tramadol/Acetaminophen (Ultracet 37.5/325 Mg) 1 tab PO Q6H PRN PRN Reason: severe pain - Labs Labs: 06/06/18 06:50 06/06/18 06:50 PT 14.5 SECONDS (9.4-12.5) H 06/04/18 21:40 INR 1.27 06/04/18 21:40 APTT 31.2 Seconds (25.1-36.5) 06/04/18 21:40 - Constitutional Appears: Non-toxic, No Acute Distress, Chronically Ill - Head Exam Head Exam: ATRAUMATIC, NORMOCEPHALIC - Eye Exam Eye Exam: EOMI, PERRL Pupil Exam: NORMAL ACCOMODATION, PERRL - ENT Exam ENT Exam: Mucous Membranes Moist, Normal External Ear Exam, TM's Normal Bilaterally - Neck Exam Neck Exam: Full ROM, Normal Inspection - Respiratory Exam Respiratory Exam: Clear to Ausculation Bilateral, NORMAL BREATHING PATTERN. absent: Rales, Rhonchi, Wheezes - Cardiovascular Exam Cardiovascular Exam: REGULAR RHYTHM, RRR, +S1, +S2 - GI/Abdominal Exam GI & Abdominal Exam: Soft, Normal Bowel Sounds. absent: Distended, Tenderness - Extremities Exam Extremities Exam: Full ROM, Normal Inspection - Neurological Exam Neurological Exam: Alert, Awake, CN II-XII Intact, Oriented x3 - Psychiatric Exam Psychiatric exam: Normal Affect, Normal Mood - Skin Skin Exam: Intact, Normal Color Assessment and Plan - Assessment and Plan (Free Text) Assessment: 62 yo female with fevers for 1 day who has had several hospitalization to [facility] with UTI with ESBL+ Pseudomonas and E. coli. Patient with multiple medical issues including recurrent metastatic uterine carcinoma. Was on Cipro PO but developed fevers within three days of her last discharge from [facility]. Will start Meropenem until cultures return based on the previous recent hospitalizations. Supportive care. The patient will need at least 10 days of IV meropenem especially if the cultures return with the same organism as in the past hospitalizations. Medications can be given in hospital or via home IV infusion. At this point, cannot rule out UTI as source of fevers versus her metastatic uterine cancer. The patient may have fevers secondary to the metastatic uterine cancer. Thank you for allowing me to participate in the care of the patient, we will bret gordillo with you.
[2018-06-07] MEDS: Sodium Chloride 0.9% 1,000 ML IV SCH (00:45)
[2018-06-07] MEDS: MEROPENEM 500 MG in NS 500 MG/50 ML BAG IVPB SCH ×2 (10:45→21:35)
[2018-06-07] MEDS: NIFEdipine 90 mg ER Tab PO SCH (10:46)
[2018-06-07] MEDS: Silver Sulfadiazine 1% Cream (25 gm) TP SCH (10:49)
[2018-06-07] MEDS: TraMADol/Apap 37.5/325 mg Tab PO PRN (15:48)
--- NOTE | 2018-06-07 15:55 | CP.PCM.PN ---
Subjective - Date & Time of Evaluation Date of Evaluation: 06/07/18 Time of Evaluation: 14:15 - Subjective Subjective: Infectious Disease Follow Up: June 07, 2018 62 yo female with known history of metastatic uterine carcinoma. The patient is complaining of fevers up to 101.6 F for the past 24 hours prior to admission. T he patient developed borderline fevers within a day from discharge from [facility] even while on Cipro PO BID. Spoke with the patient and her daughter over the phone and suggested initially to continue Cipro and utilize Tylenol. Patient was afebrile the next day but then developed fevers up to 101.6 F last night. Spoke with family over the phone again and suggested that they return to [facility] for IV antibiotic care. Extensive past medical history of Obesity, hypertension, anemia, hyperlipidemia, GERDs, bilateral hydronephrosis with replaced bilateral urethral stents, chronic renal disease stage III, degenerative arthritis, and COPD. The patient has required Meropenem treatment on her last three h ospitalizations. Awaiting repeat urine cultures. Cannot rule out whether fever episodes are secondary to the metastatic uterine carcinoma. Initial urine cultures have grown multiple organisms of unknown significance. Currently the patient has been afebrile just over 24 hours at this point. Objective - Vital Signs/Intake and Output Vital Signs (last 24 hours): Temp Pulse Resp BP Pulse Ox 99.5 F 81 19 154/79 H 95 06/07/18 06:00 06/07/18 10:46 06/07/18 06:00 06/07/18 10:46 06/07/18 06:00 Intake and Output: 06/07/18 06/07/18 06:59 18:59 Intake Total 1200 Balance 1200 - Medications Medications: Current Medications Acetaminophen (Tylenol 325mg Tab) 650 mg PO Q6H PRN PRN Reason: Fever >100.4 F Last Admin: 06/05/18 15:34 Dose: 650 mg Atorvastatin Calcium (Lipitor) 10 mg PO DIN [facility] Last Admin: 06/06/18 17:44 Dose: 10 mg Clonidine HCl (Catapres) 0.1 mg PO DAILY [facility] Last Admin: 06/07/18 10:46 Dose: 0.1 mg Docusate Sodium (Colace) 100 mg PO DAILY [facility] Last Admin: 06/07/18 10:46 Dose: 100 mg Doxazosin Mesylate (Cardura) 4 mg PO HS [facility] Last Admin: 10/23/18 21:37 Dose: 4 mg Famotidine (Pepcid) 20 mg PO HS [facility] Last Admin: 06/06/18 21:37 Dose: 20 mg Ferrous Gluconate (Fergon) 324 mg PO TID [facility] Last Admin: 06/07/18 10:47 Dose: 324 mg Furosemide (Lasix) 80 mg IVP DAILY [facility] Furosemide (Lasix) 40 mg IVP ONCE ONE Stop: 06/07/18 22:01 Meropenem/Sodium Chloride (Merrem Iv 500 Mg/Ns 50 Ml) 500 mg in 50 mls @ 100 mls/hr IVPB Q12 [facility]; Protocol Last Admin: 06/07/18 10:45 Dose: 100 mls/hr Letrozole (Femara) 2.5 mg PO DAILY [facility] Last Admin: 06/07/18 11:16 Dose: 2.5 mg Metoprolol Tartrate (Lopressor) 150 mg PO BID [facility] Last Admin: 06/07/18 10:46 Dose: 150 mg Nifedipine (Procardia Xl) 90 mg PO DAILY [facility] Last Admin: 06/07/18 10:46 Dose: 90 mg Nystatin (Mycostatin Cream) 1 ea TOP TID [facility] Ondansetron HCl (Zofran Inj) 4 mg IVP Q6H PRN PRN Reason: Nausea/Vomiting Tramadol/Acetaminophen (Ultracet 37.5/325 Mg) 1 tab PO Q6H PRN PRN Reason: severe pain - Labs Labs: 06/06/18 06:50 06/06/18 06:50 PT 14.5 SECONDS (9.4-12.5) H 06/04/18 21:40 INR 1.27 06/04/18 21:40 APTT 31.2 Seconds (25.1-36.5) 06/04/18 21:40 - Constitutional Appears: Non-toxic, No Acute Distress, Chronically Ill - Head Exam Head Exam: ATRAUMATIC, NORMOCEPHALIC - Eye Exam Eye Exam: EOMI, PERRL Pupil Exam: NORMAL ACCOMODATION, PERRL - ENT Exam ENT Exam: Mucous Membranes Moist, Normal External Ear Exam, TM's Normal Bilaterally - Neck Exam Neck Exam: Full ROM, Normal Inspection - Respiratory Exam Respiratory Exam: Clear to Ausculation Bilateral, NORMAL BREATHING PATTERN. absent: Rales, Rhonchi, Wheezes - Cardiovascular Exam Cardiovascular Exam: REGULAR RHYTHM, RRR, +S1, +S2 - GI/Abdominal Exam GI & Abdominal Exam: Soft, Normal Bowel Sounds. absent: Distended, Tenderness - Extremities Exam Extremities Exam: Full ROM, Normal Inspection - Neurological Exam Neurological Exam: Alert, Awake, CN II-XII Intact, Oriented x3 - Psychiatric Exam Psychiatric exam: Normal Affect, Normal Mood - Skin Skin Exam: Intact, Normal Color Assessment and Plan - Assessment and Plan (Free Text) Assessment: 62 yo female with fevers for 1 day who has had several hospitalization to [facility] with UTI with ESBL+ Pseudomonas and E. coli. Patient with multiple medical issues including recurrent metastatic uterine carcinoma. Was on Cipro PO but developed fevers within three days of her last discharge from [facility]. Will start Meropenem until cultures return based on the previous recent hospitalizations. Supportive care. The patient will need at least 10 days of IV meropenem especially if the cultures return with the same organism as in the past hospitalizations. Medications can be given in hospital or via home IV infusion. At this point, cannot rule out UTI as source of fevers versus her metastatic uterine cancer. The patient may have fevers secondary to the metastatic uterine cancer. She has been afebrile just over 24 hours now. Urine cultures showing multiple organisms of unknown significance. Repeat urine culture. Thank you for allowing me to participate in the care of the patient, we will follow with you.
[2018-06-07] MEDS ORDERED: Potassium Chloride 20 mEq ER Tab PO ONE (16:31)
[2018-06-07] MEDS: Nystatin 100,000 Units/gm Cream(15 gm) TOP SCH (18:19)
--- NOTE | 2018-06-08 02:55 | PN ---
DATE: 06/06/2018 SUBJECTIVE: This 62-year-old female was examined on the cardiac gibson in the presence of her , Joe. She was lying in bed. She remains weak and deconditioned and is also running fevers with vital signs showing temperature of 101.1. The patient denied any shortness of breath and remains weak and deconditioned and complains of chills. PHYSICAL EXAMINATION: VITAL SIGNS: On physical exam, she was noted to have a blood pressure of 158/73, a pulse of 94 and respirations of 20 with pulse ox 97% room air. HEENT: Head is normocephalic and atraumatic. Eyes, no icterus. Ears, clear. Throat, noninjected. NECK: Supple. HEART: Regular S1, S2. No pathological rubs, murmurs or gallops. LUNGS: Clear to auscultation. ABDOMEN: Soft. EXTREMITIES: No edema. SKIN: No rash. VASCULAR: Legs warm to touch. PSYCHOLOGICAL: Alert and oriented x3. NEUROLOGIC: Deconditioned. LABORATORY DATA: White count 6600, hemoglobin 8.9, hematocrit 27.7 and platelets 274,000. Sodium 140, potassium 4.2, chloride 114, bicarb 16, BUN 44, creatinine 3.3, random blood sugar 118. All liver function testing was normal including bilirubin 0.4, AST 32, ALT 33, alk phos 74 and magnesium 2.1. Urinalysis showed moderate bacteria. T4 was normal at 5.5 and blood culture showed no growth, but urine culture showed 50,000 units consistent with multiple species and probably consistent with a contaminated collected specimen. IMPRESSION: A 62-year-old female with history of recurrent urosepsis and comorbidities of metastatic recurrent uterine cancer, chronic renal failure stage IV, history of bilateral hydronephrosis with recently replaced bilateral ureteral stents, obesity, hypertension, obstipation, iron-deficiency anemia, hyperlipidemia, accelerated hypertension, peptic ulcer disease with gastroesophageal reflux disease, fungal dermatitis and degenerative arthritis. PLAN: At present is to continue Cardura, clonidine, Colace, Femara, Fergon, Lipitor, Lopressor, IV meropenem, Pepcid, Procardia XL, Silvadene to affected skin area, 0.9 saline at 100 mL per hour, Tylenol, Ultracet, Zofran p.r.n. She is being followed by Dr. Nilesh Lloyd from infectious disease, who has requested a transitional care rehab evaluation for continued IV antibiotics. She will continue on a heart-healthy renal diabetic diet. She has been ordered to have isolation, out of bed to chair, fall precautions and physical therapy for ambulation. Greater than 35 minutes was spent in the care management, review of labs, orders, x-rays and discussion of this patient's case with her and nursing as well as Dr. Nilesh Lloyd. All questions were answered. Luisa Pa MD MTDD
[2018-06-08 08:01] LABS: HEMOGLOBIN 9.1 g/dL (12.0-16.0); MEAN CELL VOLUME 93.8 fl (80.0-105.0); MEAN CORPUSCULAR HEMOGLOBIN 29.8 pg (25.0-35.0); MEAN CORPUSCULAR HGB CONC 31.8 g/dl (31.0-37.0); MEAN PLATELET VOLUME 8.1 fl (7.0-11.0); RBC 3.05 10^6/uL (3.5-6.1); RED CELL DISTRIBUTION WIDTH 14.2 % (11.5-14.5); WHITE BLOOD COUNT 6.5 10^3/ul (4.5-11.0)
[2018-06-08 08:10] LABS: CALCIUM 8.9 mg/dL (8.4-10.5)
[2018-06-08] MEDS: MEROPENEM 500 MG in NS 500 MG/50 ML BAG IVPB SCH ×2 (09:47→21:12)
[2018-06-08] MEDS: NIFEdipine 90 mg ER Tab PO SCH (09:48)
[2018-06-08] MEDS: Nystatin 100,000 Units/gm Cream(15 gm) TOP SCH ×3 (10:04→18:37)
--- NOTE | 2018-06-08 16:54 | PN ---
DATE: 06/07/2018 SUBJECTIVE: This 62-year-old female was examined at her bedside on the morning of 06/07/2018. Present for the interview was her physical therapist, Dain, and this case was reviewed in detail with her nurse, Lisa Degroot, and her daughter, April. The patient is now beginning to ambulate. She was admitted with fevers, felt to be secondary to probable urosepsis versus recurrent uterine metastatic cancer. She is being followed daily by Dr. Nilesh Lloyd from Infectious Disease who has recommended a full 10-day course of IV meropenem. At present from my interview, PHYSICAL EXAMINATION VITAL SIGNS: Her temperature was 99.5, respirations 19, pulse 81 and blood pressure 154/79 with a pulse ox of 95%. HEENT: Head: Normocephalic, atraumatic. Eyes: No icterus. Ears: Clear. Throat: Non-injected. NECK: Supple. CARDIOPULMONARY: Heart: Regular S1, S2. LUNGS: Clear. ABDOMEN: Obese. EXTREMITIES: No edema. SKIN: Without rash except for fungal dermatitis in her groin. VASCULAR: Legs warm to touch. PSYCHOLOGIC: Alert and oriented x3. NEUROLOGIC: Deconditioned but ambulating with assistance. LABORATORY DATA: White count 6600, hemoglobin 8.9, hematocrit 27.7, and platelets 274,000. Sodium 140, K 4.2, chloride 114, bicarb 16, BUN 44, creatinine 3.3, random blood sugar was 118. T4 normal 5.5. Urine culture showed 10,000 to 50,000 colony-forming units per millimeter consistent with probable contamination, and blood culture showed no growth. Chest x-ray was reviewed which showed no infiltrate, no effusion, no congestive heart failure, no pneumothorax. IMPRESSION: A 62-year-old female with recurrent fevers, probable urosepsis, rule out fever of malignancy with comorbidities of obesity, hypertension, anemia of chronic disease, iron-deficiency anemia, hyperlipidemia; chronic renal failure, stage III to IV; fungal dermatitis, peptic ulcer disease with gastroesophageal reflux disease, degenerative arthritis and history of gout. As discussed with the patient, Physical Therapy, Nursing and family, she will continue on Cardura, clonidine, Colace, Femara, Fergon, Lasix, Lipitor, Lopressor, IV meropenem, nystatin cream to fungal dermatitis, Pepcid, Procardia XL, Tylenol, Ultracet and Zofran. I have stopped IV fluids. She will receive two doses of parenteral Lasix. She will have repeat laboratories in the a.m. A repeat chest x-ray will be ordered in the a.m., and she is being readied for a med line with the need for parenteral IV antibiotics which hopefully can be accomplished while in the hospital if not approved by her insurance at home. Greater than 35 minutes was spent in the care management, review of labs, orders, x-rays and discussion of this patient with herself, family, Physical Therapy, Nursing and co-senior recruitment consultant, Dr. Lloyd. All questions were answered. Luisa Pa MD MTDD
--- NOTE | 2018-06-08 17:52 | CP.PCM.PN ---
Subjective - Date & Time of Evaluation Date of Evaluation: 06/08/18 Time of Evaluation: 16:30 - Subjective Subjective: Infectious Disease Follow Up: June 08, 2018 62 yo female with known history of metastatic uterine carcinoma. The patient is complaining of fevers up to 101.6 F for the past 24 hours prior to admission. T he patient developed borderline fevers within a day from [place] [facility] [place] on Cipro PO BID. Spoke with the patient and her daughter over the phone and suggested initially to continue Cipro and utilize Tylenol. Patient was afebrile the next day but then developed fevers up to 101.6 F last night. Spoke with family over the phone again and suggested that they return [place] [facility] [place] care. Extensive past medical history of Obesity, hypertension, anemia, hyperlipidemia, GERDs, bilateral hydronephrosis with replaced bilateral urethral stents, chronic renal disease stage III, degenerative arthritis, and COPD. The patient has required Meropenem treatment on her last three h ospitalizations. Awaiting repeat urine cultures. Cannot rule out whether fever episodes are secondary to the metastatic uterine carcinoma. Initial urine cultures have grown multiple organisms of unknown significance. Febrile overnight to 101.6 F. Objective - Vital Signs/Intake and Output Vital Signs (last 24 hours): Temp Pulse Resp BP Pulse Ox 98.3 F 79 19 119/70 100 06/08/18 17:06 06/08/18 17:43 06/08/18 17:06 06/08/18 17:43 06/08/18 17:06 Intake and Output: 06/08/18 06/08/18 06:59 18:59 Intake Total 2080 Output Total 300 Balance 1780 - Medications Medications: Current Medications Acetaminophen (Tylenol 325mg Tab) 650 mg PO Q6H PRN PRN Reason: Fever >100.4 F Last Admin: 06/08/18 00:02 Dose: 650 mg Atorvastatin Calcium (Lipitor) 10 mg PO DIN [facility] Last Admin: 06/08/18 17:43 Dose: 10 mg Clonidine HCl (Catapres) 0.1 mg PO DAILY [facility] Last Admin: 06/08/18 09:47 Dose: 0.1 mg Docusate Sodium (Colace) 100 mg PO DAILY [facility] Last Admin: 06/08/18 09:48 Dose: 100 mg Doxazosin Mesylate (Cardura) 4 mg PO HS [facility] Last Admin: 06/07/18 21:31 Dose: 4 mg Famotidine (Pepcid) 20 mg PO HS [facility] Last Admin: 06/07/18 22:19 Dose: 20 mg Ferrous Gluconate (Fergon) 324 mg PO TID [facility] Last Admin: 06/08/18 17:43 Dose: 324 mg Meropenem/Sodium Chloride (Merrem Iv 500 Mg/Ns 50 Ml) 500 mg in 50 mls @ 100 mls/hr IVPB Q12 [facility]; Protocol Last Admin: 06/08/18 09:47 Dose: 100 mls/hr Letrozole (Femara) 2.5 mg PO DAILY [facility] Last Admin: 06/08/18 10:00 Dose: 2.5 mg Metoprolol Tartrate (Lopressor) 150 mg PO BID [facility] Last Admin: 06/08/18 17:43 Dose: 150 mg Nifedipine (Procardia Xl) 90 mg PO DAILY [facility] Last Admin: 06/08/18 09:48 Dose: 90 mg Nystatin (Mycostatin Cream) 1 ea TOP TID [facility] Last Admin: 06/08/18 14:24 Dose: 1 applic Ondansetron HCl (Zofran Inj) 4 mg IVP Q6H PRN PRN Reason: Nausea/Vomiting Tramadol/Acetaminophen (Ultracet 37.5/325 Mg) 1 tab PO Q6H PRN PRN Reason: severe pain Last Admin: 06/07/18 15:48 Dose: 1 tab - Labs Labs: 06/08/18 07:50 06/08/18 07:50 PT 14.5 SECONDS (9.4-12.5) H 06/04/18 21:40 INR 1.27 06/04/18 21:40 APTT 31.2 Seconds (25.1-36.5) 06/04/18 21:40 - Constitutional Appears: Non-toxic, No Acute Distress, Chronically Ill - Head Exam Head Exam: ATRAUMATIC, NORMOCEPHALIC - Eye Exam Eye Exam: EOMI, PERRL Pupil Exam: NORMAL ACCOMODATION, PERRL - ENT Exam ENT Exam: Mucous Membranes Moist, Normal External Ear Exam, TM's Normal Bilaterally - Neck Exam Neck Exam: Full ROM, Normal Inspection - Respiratory Exam Respiratory Exam: Clear to Ausculation Bilateral, NORMAL BREATHING PATTERN. absent: Rales, Rhonchi, Wheezes - Cardiovascular Exam Cardiovascular Exam: REGULAR RHYTHM, RRR, +S1, +S2 - GI/Abdominal Exam GI & Abdominal Exam: Soft, Normal Bowel Sounds. absent: Distended, Tenderness - Extremities Exam Extremities Exam: Full ROM, Normal Inspection - Neurological Exam Neurological Exam: Alert, Awake, CN II-XII Intact, Oriented x3 - Psychiatric Exam Psychiatric exam: Normal Affect, Normal Mood - Skin Skin Exam: Intact, Normal Color Assessment and Plan - Assessment and Plan (Free Text) Assessment: 62 yo female with fevers for 1 day who has had several hospitalization [place] [facility] [place] [place]TI with ESBL+ Pseudomonas and E. coli. Patient with multiple medical is sues including recurrent metastatic uterine carcinoma. Was on Cipro PO but developed fevers within three days of her last discharge [place] [facility] Will start Meropenem until cultures return based on the previous recent hospitalizations. Supportive care. The patient will need at least 10 days of IV meropenem especially if the cultures return with the same organism as in the past hospitalizations. M edications can be given in hospital or via home IV infusion. At this point, cannot rule out UTI as source of fevers versus her metastatic uterine cancer. The patient may have fevers secondary to the metastatic uterine cancer. She is febrile overnight to 101.6 F. Urine cultures showing multiple organisms of unknown significance. Repeat urine culture. If repeat urine is negative and patient is still febrile, have to consider that fevers may be secondary to malignancy. Thank you for allowing me to participate in the care of the patient, we will follow with you.
[2018-06-08] MEDS: TraMADol/Apap 37.5/325 mg Tab PO PRN (18:36)
[2018-06-09] MEDS: NIFEdipine 90 mg ER Tab PO SCH (09:22)
[2018-06-09] MEDS: MEROPENEM 500 MG in NS 500 MG/50 ML BAG IVPB SCH ×2 (09:25→21:32)
[2018-06-09] MEDS: Nystatin 100,000 Units/gm Cream(15 gm) TOP SCH ×3 (09:27→17:05)
--- NOTE | 2018-06-09 14:31 | CP.PCM.PN ---
Subjective - Date & Time of Evaluation Date of Evaluation: 06/09/18 Time of Evaluation: 12:30 - Subjective Subjective: Infectious Disease Follow Up: June 09, 2018 62 yo female with known history of metastatic uterine carcinoma. The patient is complaining of fevers up to 101.6 F for the past 24 hours prior to admission. T he patient developed borderline fevers within a day from discharge from [facility] even while on Cipro PO BID. Spoke with the patient and her daughter over the phone and suggested initially to continue Cipro and utilize Tylenol. Patient was afebrile the next day but then developed fevers up to 101.6 F last night. Spoke with family over the phone again and suggested that they return to [facility] for IV antibiotic care. Extensive past medical history of Obesity, hypertension, anemia, hyperlipidemia, GERDs, bilateral hydronephrosis with replaced bilateral urethral stents, chronic renal disease stage III, degenerative arthritis, and COPD. The patient has required Meropenem treatment on her last three h ospitalizations. Awaiting repeat urine cultures. Cannot rule out whether fever episodes are secondary to the metastatic uterine carcinoma. Initial urine cultures have grown multiple organisms of unknown significance. Febrile two nights ago to 101.6 F. Objective - Vital Signs/Intake and Output Vital Signs (last 24 hours): Temp Pulse Resp BP Pulse Ox 98.4 F 81 20 149/82 96 06/09/18 06:00 06/09/18 09:25 06/09/18 06:00 06/09/18 09:25 06/09/18 06:00 Intake and Output: 06/09/18 06/09/18 06:59 18:59 Intake Total 290 Balance 290 - Medications Medications: Current Medications Acetaminophen (Tylenol 325mg Tab) 650 mg PO Q6H PRN PRN Reason: Fever >100.4 F Last Admin: 06/08/18 00:02 Dose: 650 mg Atorvastatin Calcium (Lipitor) [address] [facility] Last Admin: 06/08/18 17:43 Dose: 10 mg Clonidine HCl (Catapres) 0.[address] [facility] Last Admin: 06/09/18 09:25 Dose: 0.1 mg Docusate Sodium (Colace) [address] [facility] Last Admin: 06/09/18 09:23 Dose: 100 mg Doxazosin Mesylate (Cardura) [address] [facility] Last Admin: 06/08/18 21:12 Dose: 4 mg Famotidine (Pepcid) [address] [facility] Last Admin: 06/08/18 21:12 Dose: 20 mg Ferrous Gluconate (Fergon) [address] [facility] Last Admin: 06/09/18 09:23 Dose: 324 mg Meropenem/Sodium Chloride (Merrem Iv 500 Mg/Ns 50 Ml) 500 mg in 50 mls @ 100 mls/hr IVPB Q12 [facility]; Protocol Last Admin: 06/09/18 09:25 Dose: 100 mls/hr Letrozole (Femara) 2.[address] [facility] Last Admin: 06/09/18 09:48 Dose: 2.5 mg Metoprolol Tartrate (Lopressor) [address] [facility] Last Admin: 06/09/18 09:22 Dose: 150 mg Nifedipine (Procardia Xl) [address] [facility] Last Admin: 06/09/18 09:22 Dose: 90 mg Nystatin (Mycostatin Cream) [address] [facility] Last Admin: 06/09/18 09:27 Dose: 1 applic Ondansetron HCl (Zofran Inj) 4 mg IVP Q6H PRN PRN Reason: Nausea/Vomiting Tramadol/Acetaminophen (Ultracet 37.5/325 Mg) 1 tab PO Q6H PRN PRN Reason: severe pain Last Admin: 06/08/18 18:36 Dose: 1 tab - Labs Labs: 06/08/18 07:50 06/08/18 07:50 PT 14.5 SECONDS (9.4-12.5) H 06/04/18 21:40 INR 1.27 06/04/18 21:40 APTT 31.2 Seconds (25.1-36.5) 06/04/18 21:40 - Constitutional Appears: Non-toxic, No Acute Distress, Chronically Ill - Head Exam Head Exam: ATRAUMATIC, NORMOCEPHALIC - Eye Exam Eye Exam: EOMI, PERRL Pupil Exam: NORMAL ACCOMODATION, PERRL - ENT Exam ENT Exam: Mucous Membranes Moist, Normal External Ear Exam, TM's Normal Bilaterally - Neck Exam Neck Exam: Full ROM, Normal Inspection - Respiratory Exam Respiratory Exam: Clear to Ausculation Bilateral, NORMAL BREATHING PATTERN. absent: Rales, Rhonchi, Wheezes - Cardiovascular Exam Cardiovascular Exam: REGULAR RHYTHM, RRR, +S1, +S2 - GI/Abdominal Exam GI & Abdominal Exam: Soft, Normal Bowel Sounds. absent: Distended, Tenderness - Extremities Exam Extremities Exam: Full ROM, Normal Inspection - Neurological Exam Neurological Exam: Alert, Awake, CN II-XII Intact, Oriented x3 - Psychiatric Exam Psychiatric exam: Normal Affect, Normal Mood - Skin Skin Exam: Intact, Normal Color Assessment and Plan - Assessment and Plan (Free Text) Assessment: 62 yo female with fevers for 1 day who has had several hospitalization to [facility] with UTI with ESBL+ Pseudomonas and E. coli. Patient with multiple medical issues including recurrent metastatic uterine carcinoma. Was on Cipro PO but developed fevers within three days of her last discharge from [facility]. Will start Meropenem until cultures return based on the previous recent hospitalizations. Supportive care. The patient will need at least 10 days of IV meropenem especially if the cultures return with the same organism as in the past hospitalizations. Medications can be given in hospital or via home IV infusion. At this point, cannot rule out UTI as source of fevers versus her metastatic uterine cancer. The patient may have fevers secondary to the metastatic uterine cancer. She is febrile two nights ago to 101.6 F. Urine cultures showing multiple organisms of unknown significance. Repeat urine culture... small amount of yeast noted. Afebrile the past 24 hours. If repeat urine is negative and patient is still febrile, have to consider that fevers may be secondary to malignancy. Heme/Onc evaluation may be helpful. Thank you for allowing me to participate in the care of the patient, we will follow with you.
[2018-06-09] MEDS: TraMADol/Apap 37.5/325 mg Tab PO PRN (16:46)
[2018-06-10] MEDS: NIFEdipine 90 mg ER Tab PO SCH (10:15)
[2018-06-10] MEDS: MEROPENEM 500 MG in NS 500 MG/50 ML BAG IVPB SCH ×2 (10:16→21:54)
[2018-06-10] MEDS: Nystatin 100,000 Units/gm Cream(15 gm) TOP SCH ×3 (10:17→18:24)
--- NOTE | 2018-06-10 16:54 | CP.PCM.PN ---
Subjective - Date & Time of Evaluation Date of Evaluation: 06/10/18 Time of Evaluation: 15:00 - Subjective Subjective: Infectious Disease Follow Up: June 10, 2018 62 yo female with known history of metastatic uterine carcinoma. The patient is complaining of fevers up to 101.6 F for the past 24 hours prior to admission. T he patient developed borderline fevers within a day from discharge from [facility] even while on Cipro PO BID. Spoke with the patient and her daughter over the phone and suggested initially to continue Cipro and utilize Tylenol. Patient was afebrile the next day but then developed fevers up to 101.6 F last night. Spoke with family over the phone again and suggested that they return to [facility] for IV antibiotic care. Extensive past medical history of Obesity, hypertension, anemia, hyperlipidemia, GERDs, bilateral hydronephrosis with replaced bilateral urethral stents, chronic renal disease stage III, degenerative arthritis, and COPD. The patient has required Meropenem treatment on her last three h ospitalizations. Awaiting repeat urine cultures. Cannot rule out whether fever episodes are secondary to the metastatic uterine carcinoma. Initial urine cultures have grown multiple organisms of unknown significance. Febrile three nights ago to 101.6 F. Creatinine remain significantly elevated past 3. The creatinine has been worse than her previous hospitalizations. Objective - Vital Signs/Intake and Output Vital Signs (last 24 hours): Temp Pulse Resp BP Pulse Ox 98.3 F 77 20 164/84 H 95 06/10/18 10:38 06/10/18 10:16 06/10/18 06:00 06/10/18 10:16 06/10/18 06:00 Intake and Output: 06/10/18 06/10/18 06:59 18:59 Intake Total 50 Balance 50 - Medications Medications: Current Medications Acetaminophen (Tylenol 325mg Tab) 650 mg PO Q6H PRN PRN Reason: Fever >100.4 F Last Admin: 06/08/18 00:02 Dose: 650 mg Atorvastatin Calcium (Lipitor) 10 mg PO DIN [facility] Last Admin: 06/09/18 17:05 Dose: 10 mg Clonidine HCl (Catapres) 0.2 mg PO BID [facility] Docusate Sodium (Colace) 100 mg PO DAILY [facility] Last Admin: 06/10/18 10:16 Dose: 100 mg Doxazosin Mesylate (Cardura) 4 mg PO HS [facility] Last Admin: 06/09/18 21:32 Dose: 4 mg Famotidine (Pepcid) 20 mg PO HS [facility] Last Admin: 06/09/18 21:33 Dose: 20 mg Ferrous Gluconate (Fergon) 324 mg PO TID [facility] Last Admin: 06/10/18 14:15 Dose: 324 mg Meropenem/Sodium Chloride (Merrem Iv 500 Mg/Ns 50 Ml) 500 mg in 50 mls @ 100 mls/hr IVPB Q12 [facility]; Protocol Last Admin: 06/10/18 10:16 Dose: 100 mls/hr Letrozole (Femara) 2.5 mg PO DAILY [facility] Last Admin: 06/10/18 10:21 Dose: 2.5 mg Metoprolol Tartrate (Lopressor) 150 mg PO BID [facility] Last Admin: 06/10/18 10:15 Dose: 150 mg Nifedipine (Procardia Xl) 90 mg PO DAILY [facility] Last Admin: 06/10/18 10:15 Dose: 90 mg Nystatin (Mycostatin Cream) 1 ea TOP TID [facility] Last Admin: 06/10/18 14:15 Dose: 1 applic Ondansetron HCl (Zofran Inj) 4 mg IVP Q6H PRN PRN Reason: Nausea/Vomiting Tramadol/Acetaminophen (Ultracet 37.5/325 Mg) 1 tab PO Q6H PRN PRN Reason: severe pain Last Admin: 06/09/18 16:46 Dose: 1 tab Zolpidem Tartrate (Ambien) 5 mg PO HS PRN; Protocol PRN Reason: Sleep Last Admin: 06/09/18 21:33 Dose: 5 mg - Labs Labs: 06/08/18 07:50 06/08/18 07:50 PT 14.5 SECONDS (9.4-12.5) H 06/04/18 21:40 INR 1.27 06/04/18 21:40 APTT 31.2 Seconds (25.1-36.5) 06/04/18 21:40 - Constitutional Appears: Non-toxic, No Acute Distress, Chronically Ill - Head Exam Head Exam: ATRAUMATIC, NORMOCEPHALIC - Eye Exam Eye Exam: EOMI, PERRL Pupil Exam: NORMAL ACCOMODATION, PERRL - ENT Exam ENT Exam: Mucous Membranes Moist, Normal External Ear Exam, TM's Normal Bilaterally - Neck Exam Neck Exam: Full ROM, Normal Inspection - Respiratory Exam Respiratory Exam: Clear to Ausculation Bilateral, NORMAL BREATHING PATTERN. absent: Rales, Rhonchi, Wheezes - Cardiovascular Exam Cardiovascular Exam: REGULAR RHYTHM, RRR, +S1, +S2 - GI/Abdominal Exam GI & Abdominal Exam: Soft, Normal Bowel Sounds. absent: Distended, Tenderness - Extremities Exam Extremities Exam: Full ROM, Normal Inspection - Neurological Exam Neurological Exam: Alert, Awake, CN II-XII Intact, Oriented x3 - Psychiatric Exam Psychiatric exam: Normal Affect, Normal Mood - Skin Skin Exam: Intact, Normal Color Assessment and Plan - Assessment and Plan (Free Text) Assessment: 62 yo female with fevers for 1 day who has had several hospitalization to [facility] with UTI with ESBL+ Pseudomonas and E. coli. Patient with multiple medical issues including recurrent metastatic uterine carcinoma. Was on Cipro PO but developed fevers within three days of her last discharge from [facility]. Will start Meropenem until cultures return based on the previous recent hospitalizations. Supportive care. The patient will need at least 10 days of IV meropenem especially if the cultur es return with the same organism as in the past hospitalizations. Medications can be given in hospital or via home IV infusion. At this point, cannot rule out UTI as source of fevers versus her metastatic uterine cancer. The patient may have fevers secondary to the metastatic uterine cancer. She is febrile three nights ago to 101.6 F. Urine cultures showing multiple organisms of unknown significance. Repeat urine culture... small amount of yeast noted. Afebrile the past 24 hours. If repeat urine is negative and patient is still febrile, have to consider that fevers may be secondary to malignancy. Heme/Onc evaluation may be helpful. Thank you for allowing me to participate in the care of the patient, we will follow with you.
[2018-06-10] MEDS: TraMADol/Apap 37.5/325 mg Tab PO PRN (18:29)
[2018-06-11] MEDS: NIFEdipine 90 mg ER Tab PO SCH (09:12)
[2018-06-11] MEDS: Nystatin 100,000 Units/gm Cream(15 gm) TOP SCH ×3 (09:45→17:50)
--- NOTE | 2018-06-11 13:03 | PN ---
DATE: 06/11/2018 SUBJECTIVE: This 62-year-old female was examined on the cardiac gibson on the evening of 06/09/2018. Present for this interview was her , Joe. The patient is improving slowly. She remains weak and deconditioned and needs assistance with all activities of daily living. She is cooperating with physical therapy and is starting to ambulate with minimal assistance. PHYSICAL EXAMINATION: VITAL SIGNS: On physical exam, she had a temperature of 98.4, respiration 20, pulse 81 and blood pressure 137/75. HEENT: Head: Normocephalic, atraumatic. Eyes: No icterus. Ears: Clear. Throat: Noninjected. NECK: Supple. HEART: Regular S1, S2. LUNGS: Clear. ABDOMEN: Soft. EXTREMITIES: No edema. SKIN: Without rash. NEUROLOGICAL: Intact. PSYCHOLOGICAL: Alert. VASCULAR: Legs warm to touch. Left upper arm midline site clean, dry. No erythema, no warmth, no evidence of infection or DVT. LABORATORY DATA: White count 6500, hemoglobin 9.1, hematocrit 28.6, platelets 290,000. Sodium 142, K 4.5, chloride 113, bicarb 20, BUN 40, creatinine 3.4, random blood sugar 115, T4 of 5.5. IMPRESSION: A 62-year-old female with recurrent urosepsis and comorbidities of insomnia, hypertension, obesity, anemia of chronic disease, iron-deficiency anemia, hyperlipidemia, fungal dermatitis, peptic ulcer disease with gastroesophageal reflux disease, degenerative arthritis and deconditioning. PLAN: The plan at present is to continue IV meropenem under the direction of Dr. Nilesh Lloyd from Infectious Disease via her midline in her left upper arm. She continues on Ambien, Cardura, clonidine, Colace, Femara, Fergon, Lipitor, Lopressor, nystatin cream to affected skin areas, Pepcid, Procardia XL, p.r.n. Tylenol, p.r.n. Ultracet and p.r.n. Zofran. She is ordered to have physical therapy for reconditioning and gait training, nasal O2 p.r.n., a heart-healthy soft bland diet, fall precautions and wound care isolation. The patient will have social service arranged for home care IV antibiotic infusion under the direction of Dr. Nilesh Lloyd from Infectious Disease and all of the above was discussed with the patient and her at bedside. All questions were answered. Luisa Pa MD KEO
--- NOTE | 2018-06-11 13:10 | PN ---
DATE: 06/10/2018 SUBJECTIVE: This 62-year-old female was examined at her bedside on the cardiac unit at the [facility]. She was seen on the afternoon of 06/10/2018. I have requested a consultation with Dr. Junior Sewell from Hematology/Oncology. This is because she has persistent fever in the setting of negative blood and urine cultures and concerns are being raised of fever of malignancy. This patient has stage IV recurrent metastatic uterine cancer and has been admitted to [facility] on previous occasions with recurrent urosepsis. She now has a midline in place for IV meropenem therapy for recurrent urinary tract infections under the direction of Dr. Nilesh Lloyd. PHYSICAL EXAMINATION: GENERAL: On physical exam today, the patient was sitting in her bed, alert, denying any fever, chills, chest pain or shortness of breath. VITAL SIGNS: Review of her vital signs showed no fever in the past 24 hours. Temperature was 98.3, respirations 20, pulse 77 and blood pressure 164/84 with a pulse ox of 97% on room air. HEENT: Head normocephalic, atraumatic. Eyes: No icterus. Ears: Clear. Throat: Noninjected. NECK: Supple. HEART: S1, S2. LUNGS: Clear. ABDOMEN: Obese. EXTREMITIES: No edema. SKIN: Without rash. NEUROLOGICAL: Intact. PSYCHOLOGICAL: Alert. VASCULAR: Legs warm to touch. Left upper extremity IV access site was examined. No erythema, no warmth, no swelling. IMPRESSION: A 62-year-old female with uncontrolled hypertension and comorbidities of recurrent metastatic uterine cancer, recurrent urinary tract infections and urosepsis, insomnia, anxiety, iron-deficiency anemia, hyperlipidemia, fungal dermatitis, peptic ulcer disease with gastroesophageal reflux disease, degenerative arthritis and history of gout. PLAN: Plan at present is to continue Sofia Tavarez. Clonidine has been increased to 0.2 mg p.o. b.i.d. while monitoring her pulse rate and blood pressure response. She will continue on Colace, Femara, Fergon, Lipitor, Lopressor, nystatin cream to affected skin areas, Pepcid, Procardia, Tylenol, Ultracet p.r.n. and Zofran. A consultation with Dr. Junior Sewell has been called for advice regarding possible fever of malignancy. She continues on nasal O2, heart healthy diet, fall precautions, out of bed to chair, physical therapy with plans to be discharged to home when medically cleared by Oncology and Infectious Disease with home IV infusion under the direction of Dr. Nilesh Lloyd. All of the above was discussed in detail with the patient and nurse, Flaquita Floyd. All questions were answered. Luisa Pa MD MTDD
[2018-06-11] MEDS: MEROPENEM 500 MG in NS 500 MG/50 ML BAG IVPB SCH ×2 (13:36→21:30)
--- NOTE | 2018-06-11 13:51 | PN ---
DATE: 06/08/2018 SUBJECTIVE: This 62-year-old female was examined at her bedside on the cardiac unit at the [facility] on the afternoon of , 06/08/2018. Present for the interview was nurse, Lisa Degroot, and this case was also reviewed in detail with her daughter, April Caldera. The patient is status post a left upper arm PICC line placement. There are no reports of fever, chills, arm swelling or erythema. The patient was admitted with fever of unknown origin and at present two urine cultures are showing multiple species, probable contamination. It has been recommended by Dr. Nilesh Lloyd that the patient complete a 10-day course of IV meropenem, renally reduced for her chronic renal insufficiency, and that is the reason a midline was placed. At present, she is alert, oriented, denying any fever, chills, chest pain or shortness of breath. PHYSICAL EXAMINATION: VITAL SIGNS: Her temperature was 98.7, respirations 18, pulse 74, and blood pressure 174/87. HEAD: Normocephalic, atraumatic. EYES: No icterus. EARS: Clear. THROAT: Non-injected. NECK: Supple. HEART: S1, S2. LUNGS: Clear. ABDOMEN: Obese. EXTREMITIES: No edema. SKIN: Without rash. NEUROLOGICAL: Intact. PSYCHOLOGICAL: Alert. VASCULAR: Legs warm to touch. LABORATORY DATA: White count 6500, hemoglobin 9.1, hematocrit 28.6, platelets 290,000. Sodium 142, K 4.5, chloride 113, bicarb 20, BUN 40, creatinine 3.4. Estimated GFR 14 mL per minute with a calcium of 8.9. T4 normal at 5.5. Blood culture showed no growth. Urine culture showed contamination and repeat culture showed yeast, probably a contaminant. IMPRESSION: This is a 62-year-old female with history of recurrent urosepsis in the setting of metastatic recurrent uterine cancer and comorbidities of obesity, insomnia, hypertension, anemia of chronic disease, iron-deficiency anemia, hyperlipidemia, improving fungal perineal dermatitis, peptic ulcer disease with gastroesophageal reflux disease, degenerative arthritis and deconditioning. PLAN: My plans are to continue p.r.n. Ambien for sleep as requested by the patient, Cardura, clonidine, Colace, Femara, Fergon, Lipitor, Lopressor, nystatin cream, Pepcid, Procardia XL, Tylenol, Ultracet and Zofran. She will have her midline IV access line examined frequently to allay concerns of family regarding history of infection and DVT in the past with the midline placement in her right arm. She will continue on nasal O2 p.r.n., heart-healthy diet, wound isolation, and is receiving physical therapy for reconditioning and gait training. Based on social service intervention, the patient will be admitted to transitional care versus home with IV antibiotic infusion and all of the above was discussed in detail with the patient, family, nursing for greater than 35 minutes. All questions were answered. Luisa Pa MD
--- NOTE | 2018-06-11 18:16 | CP.PCM.PN ---
Subjective - Date & Time of Evaluation Date of Evaluation: 06/11/18 Time of Evaluation: 16:15 - Subjective Subjective: Infectious Disease Follow Up: June 11, 2018 62 yo female with known history of metastatic uterine carcinoma. The patient is complaining of fevers up to 101.6 F for the past 24 hours prior to admission. T he patient developed borderline fevers within a day from discharge from [facility] even while on Cipro PO BID. Spoke with the patient and her daughter over the phone and suggested initially to continue Cipro and utilize Tylenol. Patient was afebrile the next day but then developed fevers up to 101.6 F last night. Spoke with family over the phone again and suggested that they return to [facility] for IV antibiotic care. Extensive past medical history of Obesity, hypertension, anemia, hyperlipidemia, GERDs, bilateral hydronephrosis with replaced bilateral urethral stents, chronic renal disease stage III, degenerative arthritis, and COPD. The patient has required Meropenem treatment on her last three h ospitalizations. Awaiting repeat urine cultures. Cannot rule out whether fever episodes are secondary to the metastatic uterine carcinoma. Initial urine cultures have grown multiple organisms of unknown significance. Febrile four nights ago to 101.6 F. Creatinine remain significantly elevated past 3. The creatinine has been worse than her previous hospitalizations. Objective - Vital Signs/Intake and Output Vital Signs (last 24 hours): Temp Pulse Resp BP Pulse Ox 97.4 F L 62 20 116/59 L 99 06/11/18 16:42 06/11/18 17:50 06/11/18 16:42 06/11/18 17:50 06/11/18 16:42 Intake and Output: 06/11/18 06/11/18 06:59 18:59 Intake Total 160 Balance 160 - Medications Medications: Current Medications Acetaminophen (Tylenol 325mg Tab) 650 mg PO Q6H PRN PRN Reason: Fever >100.4 F Last Admin: 06/08/18 00:02 Dose: 650 mg Atorvastatin Calcium (Lipitor) 10 mg PO DIN [facility] Last Admin: 06/11/18 17:49 Dose: 10 mg Clonidine HCl (Catapres) 0.2 mg PO BID [facility] Last Admin: 06/11/18 17:50 Dose: 0.2 mg Docusate Sodium (Colace) 100 mg PO DAILY [facility] Last Admin: 06/11/18 09:12 Dose: 100 mg Doxazosin Mesylate (Cardura) 4 mg PO HS [facility] Last Admin: 06/10/18 21:31 Dose: 4 mg Famotidine (Pepcid) 20 mg PO HS [facility] Last Admin: 06/10/18 21:31 Dose: 20 mg Ferrous Gluconate (Fergon) 324 mg PO TID [facility] Last Admin: 06/11/18 17:49 Dose: 324 mg Meropenem/Sodium Chloride (Merrem Iv 500 Mg/Ns 50 Ml) 500 mg in 50 mls @ 100 mls/hr IVPB Q12 [facility]; Protocol Last Admin: 06/11/18 13:36 Dose: 100 mls/hr Letrozole (Femara) 2.5 mg PO DAILY [facility] Last Admin: 06/11/18 09:41 Dose: 2.5 mg Metoprolol Tartrate (Lopressor) 150 mg PO BID [facility] Last Admin: 06/11/18 17:49 Dose: 150 mg Nifedipine (Procardia Xl) 90 mg PO DAILY [facility] Last Admin: 06/11/18 09:12 Dose: 90 mg Nystatin (Mycostatin Cream) 1 ea TOP TID [facility] Last Admin: 06/11/18 17:50 Dose: 1 applic Ondansetron HCl (Zofran Inj) 4 mg IVP Q6H PRN PRN Reason: Nausea/Vomiting Tramadol/Acetaminophen (Ultracet 37.5/325 Mg) 1 tab PO Q6H PRN PRN Reason: severe pain Last Admin: 06/10/18 18:29 Dose: 1 tab Zolpidem Tartrate (Ambien) 5 mg PO HS PRN; Protocol PRN Reason: Sleep Last Admin: 06/09/18 21:33 Dose: 5 mg - Labs Labs: 06/08/18 07:50 06/08/18 07:50 PT 14.5 SECONDS (9.4-12.5) H 06/04/18 21:40 INR 1.27 06/04/18 21:40 APTT 31.2 Seconds (25.1-36.5) 06/04/18 21:40 - Constitutional Appears: Non-toxic, No Acute Distress, Chronically Ill - Head Exam Head Exam: ATRAUMATIC, NORMOCEPHALIC - Eye Exam Eye Exam: EOMI, PERRL Pupil Exam: NORMAL ACCOMODATION, PERRL - ENT Exam ENT Exam: Mucous Membranes Moist, Normal External Ear Exam, TM's Normal Fred aterally - Neck Exam Neck Exam: Full ROM, Normal Inspection - Respiratory Exam Respiratory Exam: Clear to Ausculation Bilateral, NORMAL BREATHING PATTERN. absent: Rales, Rhonchi, Wheezes - Cardiovascular Exam Cardiovascular Exam: REGULAR RHYTHM, RRR, +S1, +S2 - GI/Abdominal Exam GI & Abdominal Exam: Soft, Normal Bowel Sounds. absent: Distended, Tenderness - Extremities Exam Extremities Exam: Full ROM, Normal Inspection - Neurological Exam Neurological Exam: Alert, Awake, CN II-XII Intact, Oriented x3 - Psychiatric Exam Psychiatric exam: Normal Affect, Normal Mood - Skin Skin Exam: Intact, Normal Color Assessment and Plan - Assessment and Plan (Free Text) Assessment: 62 yo female with fevers for 1 day who has had several hospitalization to [facility] with UTI with ESBL+ Pseudomonas and E. coli. Patient with multiple medical issues including recurrent metastatic uterine carcinoma. Was on Cipro PO but developed fevers within three days of her last discharge from [facility]. Will start Meropenem until cultures return based on the previous recent hospitalizations. Supportive care. The patient will need at least 10 days of IV meropenem especially if the cultures return with the same organism as in the past hospitalizations. Medications can be given in hospital or via home IV infusion. At this point, cannot rule out UTI as source of fevers versus her metastatic uterine cancer. The patient may have fevers secondary to the metastatic uterine cancer. She was febrile about four nights ago to 101.6 F. Urine cultures showing multiple organisms of unknown significance. Repeat urine culture... small amount of yeast noted. Afebrile the past 72 hours. If repeat urine is negative and patient is still febrile, have to consider that fevers may be secondary to malignancy. Heme/Onc evaluation may be helpful. Thank you for allowing me to participate in the care of the patient, we will follow with you.
--- NOTE | 2018-06-12 08:23 | CON ---
DATE: 06/10/2018 HISTORY OF PRESENT ILLNESS: She is a 62-year-old woman. The history is from the patient and from the 2 daughters. Basically, in 2010, she had an endometrial carcinoma, uterine carcinoma that was resected. She did very well, but several months ago, she started developing spotting from her vaginal region. She had a repeat biopsy, which showed recurrent endometrial carcinoma and on x-ray is metastatic to the liver. She went for radiation therapy at [facility] and while she had her 6 weeks of radiation therapy to the pelvis, she also had Taxotere and carboplatin chemotherapy weekly; however, she was not able to tolerate the doses to where the white counts were not tolerating this, so she skipped several of those weeks. In any event, she was finished with the radiation therapy and the chemo and she was then transferred over to over at [facility], who started her on Femara (letrozole) pills one tablet 2.5 mg p.o. o.d. on the assumption that the uterine carcinoma is an estrogen receptor positive and progesterone receptor positive tumor, which it seems to be because the CEA evidently went down from 1200 to 300 according to the patient. She has been feeling okay and she says that she is due for another CAT scan or PET scan to reevaluate the liver in June. In any event, she also has been having recurrent fevers from the stents in both of her kidneys. These were put in by Dr. Yadiel Weinberg around October when she discovered the cancer and she was due to have them replaced end of May, early June, but she now comes in with fevers. PHYSICAL EXAMINATION SKIN: No petechiae. No bruises. HEENT: Anicteric. NODES: None palpable in the axillary, cervical, supraclavicular or inguinal regions. LUNGS: Clear at present. She is able to lie flat in bed. HEART: S1 and S2. No rubs, gallops or murmur. ABDOMEN: Shows no liver, no spleen, no tenderness, no rebound, no ascites. EXTREMITIES: No edema. MASTER GLAZIER: No focal finding. ASSESSMENT: She is afebrile now. She is feeling much better. I think at this point, we should call Dr. Yadiel Weinberg to evaluate to see if he wants to change these tubes while she is on the antibiotics as she is doing better, but I think the fevers are due to the urinary situation and she will be followed by within the next 2 weeks for followup at the cancer care. Junior MD Melodie
[2018-06-12] MEDS: NIFEdipine 90 mg ER Tab PO SCH (10:19)
[2018-06-12] MEDS: Nystatin 100,000 Units/gm Cream(15 gm) TOP SCH ×3 (10:26→17:50)
[2018-06-12] MEDS: MEROPENEM 500 MG in NS 500 MG/50 ML BAG IVPB SCH ×2 (10:26→21:04)
--- NOTE | 2018-06-12 12:07 | PN ---
DATE: 06/11/2018 SUBJECTIVE: This 62-year-old female was examined at her bedside on the afternoon of 06/11/2018. This case was reviewed in detail with nurse, Sejal Daniels. The patient reports that she was seen by Dr. Sewell from Hematology/Oncology yesterday. The consultation was called for concerns of fever of malignancy. He does not feel the fevers are related to malignancy and has requested a reevaluation with Dr. Yadiel Weinberg from Urology for consideration of replacement of bilateral ureteral stents. The patient is out of bed to chair for this interview. She denied any fever, chills, chest pain or shortness of breath in the past 24 hours. PHYSICAL EXAMINATION: VITAL SIGNS: Had a temperature of 97.4, respirations 20, pulse 62, blood pressure 116/59 with a pulse ox of 99% on room air and is in a normal sinus rhythm on the panel monitor. Head: Normocephalic and atraumatic. Eyes: No icterus. Ears: Clear. Throat: Noninjected. NECK: Supple. HEART: Regular S1, S2. LUNGS: Clear. ABDOMEN: Obese. EXTREMITIES: No edema. SKIN: Without rash. NEUROLOGICAL: Deconditioned. VASCULAR: Legs warm to touch. PSYCHOLOGICAL: Alert. NEUROLOGIC: Intact. LABORATORY DATA: Urine culture dated 06/10/2018 shows no growth. Additional labs show white count 6500, hemoglobin 9.1, hematocrit 28.6, platelets 290,000. Sodium 142, K 4.5, chloride 113, bicarb 20, BUN 40, creatinine 3.4. Estimated GFR 14 mL per minute. Blood sugar 115, calcium 8.9. T4 normal at 5.5. IMPRESSION: A 62-year-old female admitted with recurrent fever, history of multiple urosepsis episodes with comorbidities of metastatic recurrent uterine cancer, insomnia, chronic hypertension, obesity, iron-deficiency anemia, hyperlipidemia, fungal rash, peptic ulcer disease with gastroesophageal reflux disease, CRF stage 4, degenerative arthritis and gout. At present, the patient continues on Ambien, Cardura, clonidine adjusted to 0.2 mg p.o. b.i.d. with improvement in current blood pressure control. She continues on Colace, Femara, Fergon, Lipitor, Lopressor, IV meropenem, Mycostatin, Pepcid, Procardia XL, Tylenol, Ultracet and Zofran. I will place a consultation with Dr. Yadiel Weinberg for consideration of adjustment and change of current ureteral stents. She continues on IV meropenem as directed by Dr. Nilesh Lloyd and ultimate plan will be for discharge to home when medically stable. Greater than 35 minutes was spent in the care management, review of labs, orders, x-rays and review of consultation of Dr. Junior Sewell. All questions were answered. Luisa Pa MD MTDAlex
--- NOTE | 2018-06-12 12:20 | PN ---
DATE: 06/12/2018 SUBJECTIVE: This 62-year-old female remains hospitalized. She will need evaluation by Dr. Yadiel Weinberg. She was seen by Dr. Junior Sewell from Hematology/Oncology, who does not feel fevers are consistent with recurrent metastatic uterine cancer, but more likely on a urinary tract basis. Of note, the patient remains afebrile this morning on IV meropenem. PHYSICAL EXAMINATION: VITAL SIGNS: Her temperature is 98.1, respirations 20, pulse 57 and blood pressure 164/78. Pulse ox 96% on room air. Physical exam is unchanged. LABORATORY DATA: Sodium 142, K 4.5, chloride 113, bicarb 20, BUN 40, creatinine 3.4, random blood sugar 115. White count 6500, hemoglobin 9.1, hematocrit 28.6, platelets 290,000. IMPRESSION: A 62-year-old female with recurrent urosepsis, comorbidities of metastatic uterine cancer, insomnia, obesity, hypertension, iron-deficiency anemia, hyperlipidemia, peptic ulcer disease with gastroesophageal reflux disease, degenerative arthritis, history of gout and fungal, perineal infection. PLAN: To continue Ambien, Cardura, adjusted clonidine 0.2 mg p.o. b.i.d., Colace, Femara, Fergon, Lipitor, Lopressor, IV meropenem, Mycostatin cream to perineal area, Pepcid, Procardia XL, Ultracet p.r.n. severe pain, Tylenol and Zofran. I will place a call to Dr. Yadiel Weinberg to discuss replacement of ureteral tubes. She continues on IV meropenem via her left midline IV which will be removed at the end of treatment and all of the above was discussed with the patient at bedside. All questions were answered. Luisa Pa MD MTDD
[2018-06-12] MEDS: TraMADol/Apap 37.5/325 mg Tab PO PRN (17:00)
--- NOTE | 2018-06-12 19:10 | CP.PCM.PN ---
Subjective - Date & Time of Evaluation Date of Evaluation: 06/12/18 Time of Evaluation: 16:30 - Subjective Subjective: Infectious Disease Follow Up: June 12, 2018 62 yo female with known history of metastatic uterine carcinoma. The patient is complaining of fevers up to 101.6 F for the past 24 hours prior to admission. T he patient developed borderline fevers within a day from discharge from [facility] even while on Cipro PO BID. Spoke with the patient and her daughter over the phone and suggested initially to continue Cipro and utilize Tylenol. Patient was afebrile the next day but then developed fevers up to 101.6 F last night. Spoke with family over the phone again and suggested that they return to [facility] for IV antibiotic care. Extensive past medical history of Obesity, hypertension, anemia, hyperlipidemia, GERDs, bilateral hydronephrosis with replaced bilateral urethral stents, chronic renal disease stage III, degenerative arthritis, and COPD. The patient has required Meropenem treatment on her last three h ospitalizations. Awaiting repeat urine cultures. Cannot rule out whether fever episodes are secondary to the metastatic uterine carcinoma. Initial urine cultures have grown multiple organisms of unknown significance. Febrile five nights ago to 101.6 F. Creatinine remain significantly elevated past 3. The creatinine has been worse than her previous hospitalizations. Objective - Vital Signs/Intake and Output Vital Signs (last 24 hours): Temp Pulse Resp BP Pulse Ox 98.3 F 65 18 125/85 99 06/12/18 16:30 06/12/18 17:48 06/12/18 16:30 06/12/18 17:48 06/12/18 16:30 - Medications Medications: Current Medications Acetaminophen (Tylenol 325mg Tab) 650 mg PO Q6H PRN PRN Reason: Fever >100.4 F Last Admin: 06/08/18 00:02 Dose: 650 mg Atorvastatin Calcium (Lipitor) 10 mg PO DIN [facility] Last Admin: 06/12/18 17:48 Dose: 10 mg Clonidine HCl (Catapres) 0.2 mg PO BID [facility] Last Admin: 06/12/18 17:48 Dose: 0.1 mg Docusate Sodium (Colace) 100 mg PO DAILY [facility] Last Admin: 06/12/18 10:19 Dose: 100 mg Doxazosin Mesylate (Cardura) 4 mg PO HS [facility] Last Admin: 06/11/18 21:30 Dose: 4 mg Famotidine (Pepcid) 20 mg PO HS [facility] Last Admin: 06/11/18 21:33 Dose: 20 mg Ferrous Gluconate (Fergon) 324 mg PO TID [facility] Last Admin: 06/12/18 17:46 Dose: 324 mg Meropenem/Sodium Chloride (Merrem Iv 500 Mg/Ns 50 Ml) 500 mg in 50 mls @ 100 mls/hr IVPB Q12 [facility]; Protocol Last Admin: 06/12/18 10:26 Dose: 100 mls/hr Letrozole (Femara) 2.5 mg PO DAILY [facility] Last Admin: 06/12/18 10:22 Dose: 2.5 mg Metoprolol Tartrate (Lopressor) 150 mg PO BID [facility] Last Admin: 06/12/18 17:46 Dose: 50 mg Nifedipine (Procardia Xl) 90 mg PO DAILY [facility] Last Admin: 06/12/18 10:19 Dose: 90 mg Nystatin (Mycostatin Cream) 1 ea TOP TID [facility] Last Admin: 06/12/18 17:50 Dose: 1 applic Ondansetron HCl (Zofran Inj) 4 mg IVP Q6H PRN PRN Reason: Nausea/Vomiting Tramadol/Acetaminophen (Ultracet 37.5/325 Mg) 1 tab PO Q6H PRN PRN Reason: severe pain Last Admin: 06/12/18 17:00 Dose: 1 tab Zolpidem Tartrate (Ambien) 5 mg PO HS PRN; Protocol PRN Reason: Sleep Last Admin: 06/09/18 21:33 Dose: 5 mg - Labs Labs: 06/08/18 07:50 06/08/18 07:50 PT 14.5 SECONDS (9.4-12.5) H 06/04/18 21:40 INR 1.27 06/04/18 21:40 APTT 31.2 Seconds (25.1-36.5) 06/04/18 21:40 - Constitutional Appears: Non-toxic, No Acute Distress, Chronically Ill - Head Exam Head Exam: ATRAUMATIC, NORMOCEPHALIC - Eye Exam Eye Exam: EOMI, PERRL Pupil Exam: NORMAL ACCOMODATION, PERRL - ENT Exam ENT Exam: Mucous Membranes Moist, Normal External Ear Exam, TM's Normal Bilaterally - Neck Exam Neck Exam: Full ROM, Normal Inspection - Respiratory Exam Respiratory Exam: Clear to Ausculation Bilateral, NORMAL BREATHING PATTERN. absent: Rales, Rhonchi, Wheezes - Cardiovascular Exam Cardiovascular Exam: REGULAR RHYTHM, RRR, +S1, +S2 - GI/Abdominal Exam GI & Abdominal Exam: Soft, Normal Bowel Sounds. absent: Distended, Tenderness - Extremities Exam Extremities Exam: Full ROM, Normal Inspection - Neurological Exam Neurological Exam: Alert, Awake, CN II-XII Intact, Oriented x3 - Psychiatric Exam Psychiatric exam: Normal Affect, Normal Mood - Skin Skin Exam: Intact, Normal Color Assessment and Plan - Assessment and Plan (Free Text) Assessment: 62 yo female with fevers for 1 day who has had several hospitalization to [facility] with UTI with ESBL+ Pseudomonas and E. coli. Patient with multiple medical issues including recurrent metastatic uterine carcinoma. Was on Cipro PO but developed fevers within three days of her last discharge from [facility]. Will start Meropenem until cultures return based on the previous recent hospitalizations. Supportive care. The patient will need at least 10 days of IV meropenem especially if the cultures return with the same organism as in the past hospitalizations. Medications can be given in hospital or via home IV infusion. At this point, cannot rule out UTI as source of fevers versus her metastatic uterine cancer. The patient may have fevers secondary to the metastatic uterine cancer. She was febrile about five nights ago to 101.6 F. Urine cultures showing multiple organisms of unknown significance. Repeat urine culture... small amount of yeast noted. Afebrile the past 96 hours. If repeat urine is negative and patient is still febrile, have to consider that fevers may be secondary to malignancy. Heme/Onc evaluation may be helpful. Dr. Weinberg called to reevaluate prior stent placements for possible replacement or removal. Thank you for allowing me to participate in the care of the patient, we will follow with you.
[2018-06-13] MEDS: Nystatin 100,000 Units/gm Cream(15 gm) TOP SCH ×3 (09:20→17:41)
[2018-06-13] MEDS: MEROPENEM 500 MG in NS 500 MG/50 ML BAG IVPB SCH ×2 (09:23→21:40)
[2018-06-13] MEDS: NIFEdipine 90 mg ER Tab PO SCH (09:24)
--- NOTE | 2018-06-13 13:45 | PN ---
DATE: 06/13/2018 SUBJECTIVE: This 62-year-old female was examined at the [facility] on the cardiac unit on the morning of 06/13/2018. Present for this interview was her , Joe and the case was also reviewed in detail with her nurse, Sejal Daniels, registered nurse. The patient is out of bed to chair. She remains weak and deconditioned, but reportedly is able to ambulate with assistance with a rolling walker. She denies any fever, chills, chest pain or shortness of breath and is receiving IV meropenem via a left upper extremity midline IV successfully placed last week. PHYSICAL EXAMINATION: VITAL SIGNS: Temperature is 98.3, respirations 20, pulse 68, blood pressure 165/66 with pulse ox 96% on room air. HEENT: Head: Normocephalic, atraumatic. Eyes: No icterus. Ears: Clear. Throat: Noninjected. NECK: Supple. HEART: Regular S1, S2. LUNGS: Clear. ABDOMEN: Obese. EXTREMITIES: No edema. SKIN: Without rash. NEUROLOGICAL: Intact. PSYCHOLOGICAL: Alert. VASCULAR: Legs warm to touch. LABORATORY DATA: White count 6500, hemoglobin 9.1, hematocrit 28.6, platelets 290,000. Sodium 142, K 4.5, chloride 113, bicarb 20, BUN 40, creatinine 3.4, random blood sugar 115. IMPRESSION: A 62-year-old female with recurrent urosepsis and comorbidities of metastatic recurrent uterine cancer stage IV with chronic insomnia, hypertension, obesity, iron-deficiency anemia, hyperlipidemia, chronic renal failure stage 4, peptic ulcer disease with gastroesophageal reflux disease, degenerative arthritis, deconditioning and history of intermittent gout. PLAN: Plan is to continue p.r.n. Ambien, Cardura, clonidine, Colace, Femara, Fergon, Lipitor, Lopressor, IV meropenem, nystatin fungal cream to perineum, Pepcid, Procardia, Tylenol, p.r.n. Ultracet and Zofran. A consultation is pending with Dr. Yadiel Weinberg regarding the timing of bilateral ureteral stent to be replaced and also the patient is receiving daily physical and occupational therapy for reconditioning and gait training. She continues on IV meropenem 500 mg IV every 12 under the direction of Dr. Nilesh Lloyd and will be scheduled for discharge to home once cleared by Infectious Disease and Dr. Weinberg from Urology. All of the above was discussed with nurse, Jeremiah, the patient and as well as Physical Therapy. All questions were answered. Luisa Pa MD MTDAlex
--- NOTE | 2018-06-13 20:00 | CP.PCM.PN ---
Subjective - Date & Time of Evaluation Date of Evaluation: 06/13/18 Time of Evaluation: 18:15 - Subjective Subjective: Infectious Disease Follow Up: June 13, 2018 62 yo female with known history of metastatic uterine carcinoma. The patient is complaining of fevers up to 101.6 F for the past 24 hours prior to admission. T he patient developed borderline fevers within a day from discharge from [facility] even while on Cipro PO BID. Spoke with the patient and her daughter over the phone and suggested initially to continue Cipro and utilize Tylenol. Patient was afebrile the next day but then developed fevers up to 101.6 F last night. Spoke with family over the phone again and suggested that they return to [facility] for IV antibiotic care. Extensive past medical history of Obesity, hypertension, anemia, hyperlipidemia, GERDs, bilateral hydronephrosis with replaced bilateral urethral stents, chronic renal disease stage III, degenerative arthritis, and COPD. The patient has required Meropenem treatment on her last three h ospitalizations. Awaiting repeat urine cultures. Cannot rule out whether fever episodes are secondary to the metastatic uterine carcinoma. Initial urine cultures have grown multiple organisms of unknown significance. Febrile 6 nights ago to 101.6 F. Creatinine remain significantly elevated past 3. The creatinine has been worse than her previous hospitalizations. Objective - Vital Signs/Intake and Output Vital Signs (last 24 hours): Temp Pulse Resp BP Pulse Ox 98.3 F 62 20 112/55 L 96 06/13/18 07:57 06/13/18 17:41 06/13/18 07:57 06/13/18 17:41 06/13/18 07:57 Intake and Output: 06/13/18 06/14/18 18:59 06:59 Intake Total 1010 Output Total 550 Balance 460 - Medications Medications: Current Medications Acetaminophen (Tylenol 325mg Tab) 650 mg PO Q6H PRN PRN Reason: Fever >100.4 F Last Admin: 06/08/18 00:02 Dose: 650 mg Atorvastatin Calcium (Lipitor) 10 mg PO DIN [facility] Last Admin: 06/13/18 17:38 Dose: 10 mg Clonidine HCl (Catapres) 0.2 mg PO BID [facility] Last Admin: 06/13/18 17:41 Dose: Not Given Docusate Sodium (Colace) 100 mg PO DAILY [facility] Last Admin: 06/13/18 09:24 Dose: 100 mg Doxazosin Mesylate (Cardura) 4 mg PO HS [facility] Last Admin: 06/12/18 21:09 Dose: 4 mg Famotidine (Pepcid) 20 mg PO HS [facility] Last Admin: 06/12/18 21:09 Dose: 20 mg Ferrous Gluconate (Fergon) 324 mg PO TID [facility] Last Admin: 06/13/18 17:38 Dose: 324 mg Meropenem/Sodium Chloride (Merrem Iv 500 Mg/Ns 50 Ml) 500 mg in 50 mls @ 100 mls/hr IVPB Q12 [facility]; Protocol Last Admin: 06/13/18 09:23 Dose: 100 mls/hr Letrozole (Femara) 2.5 mg PO DAILY [facility] Last Admin: 06/13/18 09:27 Dose: 2.5 mg Metoprolol Tartrate (Lopressor) 150 mg PO BID [facility] Last Admin: 06/13/18 17:41 Dose: Not Given Nifedipine (Procardia Xl) 90 mg PO DAILY [facility] Last Admin: 06/13/18 09:24 Dose: 90 mg Nystatin (Mycostatin Cream) 1 ea TOP TID [facility] Last Admin: 06/13/18 17:41 Dose: 1 applic Ondansetron HCl (Zofran Inj) 4 mg IVP Q6H PRN PRN Reason: Nausea/Vomiting Tramadol/Acetaminophen (Ultracet 37.5/325 Mg) 1 tab PO Q6H PRN PRN Reason: severe pain Last Admin: 06/12/18 17:00 Dose: 1 tab Zolpidem Tartrate (Ambien) 5 mg PO HS PRN; Protocol PRN Reason: Sleep Last Admin: 06/12/18 22:02 Dose: 5 mg - Labs Labs: 06/08/18 07:50 06/08/18 07:50 PT 14.5 SECONDS (9.4-12.5) H 06/04/18 21:40 INR 1.27 06/04/18 21:40 APTT 31.2 Seconds (25.1-36.5) 06/04/18 21:40 - Constitutional Appears: Non-toxic, No Acute Distress, Chronically Ill - Head Exam Head Exam: ATRAUMATIC, NORMOCEPHALIC - Eye Exam Eye Exam: EOMI, PERRL Pupil Exam: NORMAL ACCOMODATION, PERRL - ENT Exam ENT Exam: Mucous Membranes Moist, Normal External Ear Exam, TM's Normal Bilaterally - Neck Exam Neck Exam: Full ROM, Normal Inspection - Respiratory Exam Respiratory Exam: Clear to Ausculation Bilateral, NORMAL BREATHING PATTERN. absent: Rales, Rhonchi, Wheezes - Cardiovascular Exam Cardiovascular Exam: REGULAR RHYTHM, RRR, +S1, +S2 - GI/Abdominal Exam GI & Abdominal Exam: Soft, Normal Bowel Sounds. absent: Distended, Tenderness - Extremities Exam Extremities Exam: Full ROM, Normal Inspection - Neurological Exam Neurological Exam: Alert, Awake, CN II-XII Intact, Oriented x3 - Psychiatric Exam Psychiatric exam: Normal Affect, Normal Mood - Skin Skin Exam: Intact, Normal Color Assessment and Plan - Assessment and Plan (Free Text) Assessment: 62 yo female with fevers for 1 day who has had several hospitalization to [facility] with UTI with ESBL+ Pseudomonas and E. coli. Patient with multiple medical issues including recurrent metastatic uterine carcinoma. Was on Cipro PO but developed fevers within three days of her last discharge from [facility]. Will start Meropenem until cultures return based on the previous recent hospitalizations. Supportive care. The patient will need at least 10 days of IV meropenem especially if the cultures return with the same organism as in the past hospitalizations. Medications can be given in hospital or via home IV infusion. At this point, cannot rule out UTI as source of fevers versus her metastatic uterine cancer. The patient may have fevers secondary to the metastatic uterine cancer. She was febrile about five nights ago to 101.6 F. Urine cultures showing multiple organisms of unknown significance. Repeat urine culture... small amount of yeast noted. Afebrile the past few days. Awaiting Urology evaluation. On day 9 of 10 of Meropenem. If repeat urine is negative and patient is still febrile, have to consider that fevers may be secondary to malignancy. Dr. Weinberg called to reevaluate prior stent placements for possible replacement or removal. Thank you for allowing me to participate in the care of the patient, we will follow with you.
[2018-06-14] MEDS ORDERED: Nitroglycerin 2% Ointment Foilpak UD TOP PRN (07:22)
[2018-06-14 08:25] LABS: HEMOGLOBIN 8.8 g/dL (12.0-16.0); MEAN CELL VOLUME 93.6 fl (80.0-105.0); MEAN CORPUSCULAR HEMOGLOBIN 29.4 pg (25.0-35.0); MEAN CORPUSCULAR HGB CONC 31.4 g/dl (31.0-37.0); MEAN PLATELET VOLUME 8.2 fl (7.0-11.0); RBC 2.99 10^6/uL (3.5-6.1); RED CELL DISTRIBUTION WIDTH 13.9 % (11.5-14.5); WHITE BLOOD COUNT 6.4 10^3/uL (4.5-11.0)
[2018-06-14] MEDS: NIFEdipine 90 mg ER Tab PO SCH (08:39)
[2018-06-14] MEDS: MEROPENEM 500 MG in NS 500 MG/50 ML BAG IVPB SCH ×2 (08:39→22:09)
[2018-06-14] MEDS: Nystatin 100,000 Units/gm Cream(15 gm) TOP SCH ×3 (11:07→17:30)
--- NOTE | 2018-06-14 15:52 | CP.PCM.PN ---
Subjective - Date & Time of Evaluation Date of Evaluation: 06/14/18 Time of Evaluation: 15:30 - Subjective Subjective: Infectious Disease Follow Up: June 14, 2018 62 yo female with known history of metastatic uterine carcinoma. The patient is complaining of fevers up to 101.6 F for the past 24 hours prior to admission. T he patient developed borderline fevers within a day from discharge from [facility] even while on Cipro PO BID. Spoke with the patient and her daughter over the phone and suggested initially to continue Cipro and utilize Tylenol. Patient was afebrile the next day but then developed fevers up to 101.6 F last night. Spoke with family over the phone again and suggested that they return to [facility] for IV antibiotic care. Extensive past medical history of Obesity, hypertension, anemia, hyperlipidemia, GERDs, bilateral hydronephrosis with replaced bilateral urethral stents, chronic renal disease stage III, degenerative arthritis, and COPD. The patient has required Meropenem treatment on her last three h ospitalizations. Awaiting repeat urine cultures. Cannot rule out whether fever episodes are secondary to the metastatic uterine carcinoma. Initial urine cultures have grown multiple organisms of unknown significance. Febrile 7 nights ago to 101.6 F. Creatinine remain significantly elevated past 3. The creatinine has been worse than her previous hospitalizations. For stent exchange with Dr. Weinberg today. Objective - Vital Signs/Intake and Output Vital Signs (last 24 hours): Temp Pulse Resp BP Pulse Ox 98.5 F 57 L 18 137/64 100 06/14/18 11:16 06/14/18 11:16 06/14/18 11:16 06/14/18 11:16 06/14/18 11:16 - Medications Medications: Current Medications Acetaminophen (Tylenol 325mg Tab) 650 mg PO Q6H PRN PRN Reason: Fever >100.4 F Last Admin: 06/13/18 21:51 Dose: 650 mg Atorvastatin Calcium (Lipitor) 10 mg PO DIN [facility] Last Admin: 06/13/18 17:38 Dose: 10 mg Clonidine HCl (Catapres) 0.2 mg PO BID [facility] Last Admin: 06/14/18 08:36 Dose: 0.2 mg Docusate Sodium (Colace) 100 mg PO DAILY [facility] Last Admin: 06/14/18 11:04 Dose: Not Given Doxazosin Mesylate (Cardura) 4 mg PO HS [facility] Last Admin: 06/13/18 21:39 Dose: 4 mg Famotidine (Pepcid) 20 mg PO HS [facility] Last Admin: 06/13/18 21:39 Dose: 20 mg Ferrous Gluconate (Fergon) 324 mg PO TID [facility] Last Admin: 06/14/18 11:06 Dose: Not Given Letrozole (Femara) 2.5 mg PO DAILY [facility] Last Admin: 06/14/18 08:36 Dose: 2.5 mg Metoprolol Tartrate (Lopressor) 150 mg PO BID [facility] Last Admin: 06/14/18 08:38 Dose: 150 mg Nifedipine (Procardia Xl) 90 mg PO DAILY [facility] Last Admin: 06/14/18 08:39 Dose: 90 mg Nitroglycerin (Nitro-Bid 2% Oint) 1 ea TOP Q4H PRN PRN Reason: accelerated hypertension Nystatin (Mycostatin Cream) 1 ea TOP TID [facility] Last Admin: 06/14/18 11:07 Dose: 1 applic Ondansetron HCl (Zofran Inj) 4 mg IVP Q6H PRN PRN Reason: Nausea/Vomiting Tramadol/Acetaminophen (Ultracet 37.5/325 Mg) 1 tab PO Q6H PRN PRN Reason: severe pain Last Admin: 06/12/18 17:00 Dose: 1 tab Zolpidem Tartrate (Ambien) 5 mg PO HS PRN; Protocol PRN Reason: Sleep Last Admin: 06/12/18 22:02 Dose: 5 mg - Labs Labs: 06/14/18 08:10 06/14/18 08:10 PT 14.5 SECONDS (9.4-12.5) H 06/04/18 21:40 INR 1.27 06/04/18 21:40 APTT 31.2 Seconds (25.1-36.5) 06/04/18 21:40 - Constitutional Appears: Non-toxic, No Acute Distress, Chronically Ill - Head Exam Head Exam: ATRAUMATIC, NORMOCEPHALIC - Eye Exam Eye Exam: EOMI, PERRL Pupil Exam: NORMAL ACCOMODATION, PERRL - ENT Exam ENT Exam: Mucous Membranes Moist, Normal External Ear Exam, TM's Normal Bilaterally - Neck Exam Neck Exam: Full ROM, Normal Inspection - Respiratory Exam Respiratory Exam: Clear to Ausculation Bilateral, NORMAL BREATHING PATTERN. absent: Rales, Rhonchi, Wheezes - Cardiovascular Exam Cardiovascular Exam: REGULAR RHYTHM, RRR, +S1, +S2 - GI/Abdominal Exam GI & Abdominal Exam: Soft, Normal Bowel Sounds. absent: Distended, Tenderness - Extremities Exam Extremities Exam: Full ROM, Normal Inspection - Neurological Exam Neurological Exam: Alert, Awake, CN II-XII Intact, Oriented x3 - Psychiatric Exam Psychiatric exam: Normal Affect, Normal Mood - Skin Skin Exam: Intact, Normal Color Assessment and Plan - Assessment and Plan (Free Text) Assessment: 62 yo female with fevers for 1 day who has had several hospitalization to [facility] with UTI with ESBL+ Pseudomonas and E. coli. Patient with multiple medical issues including recurrent metastatic uterine carcinoma. Was on Cipro PO but developed fevers within three days of her last discharge from [facility]. Will start Meropenem until cultures return based on the previous recent hospitalizations. Supportive care. The patient will need at least 10 days of IV meropenem especially if the c ultures return with the same organism as in the past hospitalizations. Medications can be given in hospital or via home IV infusion. At this point, cannot rule out UTI as source of fevers versus her metastatic uterine cancer. The patient may have fevers secondary to the metastatic uterine cancer. She was febrile about five nights ago to 101.6 F. Urine cultures showing multiple organisms of unknown significance. Repeat urine culture... small amount of yeast noted. Afebrile the past few days. Awaiting Urology evaluation. On day 10 of 10 of Meropenem. If repeat urine is negative and pat ient is still febrile, have to consider that fevers may be secondary to malignancy. Dr. Weinberg called to reevaluate prior stent placements for possible replacement or removal. Going to OR today for stent exchange. Would give Meropenem for 3 days more post procedure. Thank you for allowing me to participate in the care of the patient, we will follow with you.
[2018-06-14] MEDS ORDERED: cefTRIAXone (Rocephin) 1 gm Inj ONE (19:06)
[2018-06-14] MEDS ORDERED: Iohexol 240 (50 ml) ONE (19:06)
[2018-06-14] MEDS ORDERED: Propofol 10 mg/ml Inj (20 ML) ONE (19:07)
[2018-06-14] MEDS ORDERED: HYDROmorphone 0.5 mg/0.5 ml ISec IVP PRN (19:54)
--- NOTE | 2018-06-15 04:20 | CP.PCM.PN ---
Subjective - Date & Time of Evaluation Date of Evaluation: 06/15/18 Time of Evaluation: 04:19 - Subjective Subjective: I was asked to cosign order for [facility]ann[facility]. As per nurse Soco, order fell off [facility], Dr. Lloyd wanted to continue. Objective - Vital Signs/Intake and Output Vital Signs (last 24 hours): Temp Pulse Resp BP Pulse Ox 98.1 F 68 20 138/73 98 06/15/18 00:00 06/15/18 00:00 06/15/18 00:00 06/15/18 00:00 06/15/18 00:00 Intake and Output: 06/14/18 06/15/18 18:59 06:59 Intake Total 100 Balance 100 - Medications Medications: Current Medications Acetaminophen (Tylenol 325mg Tab) 650 mg PO Q6H PRN PRN Reason: Fever >100.4 F Last Admin: 06/13/18 21:51 Dose: 650 mg Atorvastatin Calcium (Lipitor) 10 mg PO DIN [facility] Last Admin: 06/14/18 17:29 Dose: Not Given Clonidine HCl (Catapres) 0.2 mg PO BID [facility] Last Admin: 06/14/18 17:28 Dose: 0.2 mg Docusate Sodium (Colace) 100 mg PO DAILY [facility] Last Admin: 06/14/18 11:04 Dose: Not Given Doxazosin Mesylate (Cardura) 4 mg PO HS [facility] Last Admin: 06/14/18 22:02 Dose: Not Given Famotidine (Pepcid) 20 mg PO HS [facility] Last Admin: 06/14/18 22:03 Dose: 20 mg Ferrous Gluconate (Fergon) 324 mg PO TID [facility] Last Admin: 06/14/18 17:30 Dose: Not Given Meropenem/Sodium Chloride (Merrem Iv 500 Mg/Ns 50 Ml) 500 mg in 50 mls @ 100 mls/hr IVPB Q12 [facility]; Protocol Last Admin: 06/14/18 22:09 Dose: 100 mls/hr Letrozole (Femara) 2.5 mg PO DAILY [facility] Last Admin: 06/14/18 08:36 Dose: 2.5 mg Metoclopramide HCl (Reglan) 10 mg IV ONCE PRN PRN Reason: Nausea/Vomiting Metoprolol Tartrate (Lopressor) 150 mg PO BID [facility] Last Admin: 06/14/18 17:29 Dose: 150 mg Nifedipine (Procardia Xl) 90 mg PO DAILY [facility] Last Admin: 06/14/18 08:39 Dose: 90 mg Nitroglycerin (Nitro-Bid 2% Oint) 1 ea TOP Q4H PRN PRN Reason: accelerated hypertension Nystatin (Mycostatin Cream) 1 ea TOP TID [facility] Last Admin: 06/14/18 17:30 Dose: 1 applic Ondansetron HCl (Zofran Inj) 4 mg IVP Q6H PRN PRN Reason: Nausea/Vomiting Tramadol/Acetaminophen (Ultracet 37.5/325 Mg) 1 tab PO Q6H PRN PRN Reason: severe pain Last Admin: 06/12/18 17:00 Dose: 1 tab Zolpidem Tartrate (Ambien) 5 mg PO HS PRN; Protocol PRN Reason: Sleep Last Admin: 06/12/18 22:02 Dose: 5 mg - Labs Labs: 06/14/18 08:10 06/14/18 08:10 PT 14.5 SECONDS (9.4-12.5) H 06/04/18 21:40 INR 1.27 06/04/18 21:40 APTT 31.2 Seconds (25.1-36.5) 06/04/18 21:40
[2018-06-15] MEDS: MEROPENEM 500 MG in NS 500 MG/50 ML BAG IVPB SCH (09:34)
[2018-06-15] MEDS: TraMADol/Apap 37.5/325 mg Tab PO PRN (09:35)
[2018-06-15] MEDS: NIFEdipine 90 mg ER Tab PO SCH (09:36)
[2018-06-15] MEDS: Nystatin 100,000 Units/gm Cream(15 gm) TOP SCH ×2 (09:44→14:04)
[2018-06-15 11:00] VITALS: RESP 18
--- NOTE | 2018-06-15 11:46 | PN ---
DATE: 06/14/2018 SUBJECTIVE: This 62-year-old female was examined at her bedside on the morning of 06/14/2018. Her , Joe was present for the interview and this case was reviewed in detail with nurse, Ingrid Orozco, registered nurse. The patient is being prepped for OR for bilateral ureteral stent removal and replacement later today. She is continuing on IV meropenem for recurrent urinary tract infections under the direction of Dr. Nilesh Lloyd from Infectious Disease. PHYSICAL EXAMINATION: GENERAL: She was out of bed to chair. VITAL SIGNS: Temperature of 98.5, respirations 18, pulse 57 and blood pressure 137/64 with a pulse ox of 100% on room air. HEENT: Head: Normocephalic, atraumatic. Eyes: No icterus. Ears: Clear. Throat: Noninjected. NECK: Supple. HEART: Regular S1, S2. LUNGS: Clear. ABDOMEN: Obese. EXTREMITIES: No edema. SKIN: Without rash. NEUROLOGICAL: Intact. PSYCHOLOGICAL: Alert. VASCULAR: Legs warm to touch. LABORATORY DATA: White count 6400, hemoglobin 8.8, hematocrit 28, platelets 367,000. Sodium 141, K 4.9, chloride 110, bicarb 21, BUN 49, creatinine 3.2. Estimated GFR 15 mL per minute, glucose 105 and calcium 9. IMPRESSION: A 62-year-old female with recurrent urinary tract urosepsis, now receiving IV meropenem and on schedule for bilateral ureteral stent replacement today by Dr. Yadiel Weinberg from Urology with comorbidities of recurrent metastatic uterine cancer, chronic insomnia, hypertension, obesity, iron-deficiency anemia, hyperlipidemia, peptic ulcer disease with gastroesophageal reflux disease and degenerative arthritis and intermittent gout. She will be continued on IV meropenem 500 mg IV every 12 hours for an additional 7 days as discussed with Dr. Nilesh Lloyd from Infectious Disease once the patient is discharged to home. She continues on p.r.n. Ambien, Cardura, clonidine, Colace, Femara, Fergon, Lipitor, Lopressor, Pepcid, Procardia XL, Tylenol, p.r.n. Ultracet and p.r.n. Zofran. Based on clinical progress, she will be readied for discharge to home tomorrow with home IV infusion company and midline IV to be removed once the antibiotics are completed. All of the above was discussed with the patient, nursing, Case Management and nurse practitioner. Greater than 35 minutes was spent in the care and management, review of labs, orders, x-rays and discussion of this patient with co-consultants. All questions were answered. Luisa Pa MD [facility]
--- NOTE | 2018-06-15 14:00 | RAD ---
Date of service: 06/14/2018 PROCEDURE: Fluoroscopy up to 1 hr HISTORY: STENT CHANGE (BILATERAL) COMPARISON: TECHNIQUE: 37.7 sec of fluoro time. 18.33 mGy. 15 images were submitted FINDINGS: The study shows bilateral hydronephrosis with placement of bilateral ureteral stents. IMPRESSION: As above
[2018-06-15 16:26] VITALS: BP 119/70; PULSE 61; TEMP 98.4; O2SAT 97
--- NOTE | 2018-06-15 18:31 | CP.PCM.PN ---
Subjective - Date & Time of Evaluation Date of Evaluation: 06/15/18 Time of Evaluation: 15:00 - Subjective Subjective: Infectious Disease Follow Up: June 15, 2018 62 yo female with known history of metastatic uterine carcinoma. The patient is complaining of fevers up to 101.6 F for the past 24 hours prior to admission. T he patient developed borderline fevers within a day from discharge from [facility] even while on Cipro PO BID. Spoke with the patient and her daughter over the phone and suggested initially to continue Cipro and utilize Tylenol. Patient was afebrile the next day but then developed fevers up to 101.6 F last night. Spoke with family over the phone again and suggested that they return to [facility] for IV antibiotic care. Extensive past medical history of Obesity, hypertension, anemia, hyperlipidemia, GERDs, bilateral hydronephrosis with replaced bilateral urethral stents, chronic renal disease stage III, degenerative arthritis, and COPD. The patient has required Meropenem treatment on her last three h ospitalizations. Awaiting repeat urine cultures. Cannot rule out whether fever episodes are secondary to the metastatic uterine carcinoma. Initial urine cultures have grown multiple organisms of unknown significance. Febrile 7 nights ago to 101.6 F. Creatinine remain significantly elevated past 3. The creatinine has been worse than her previous hospitalizations. For stent exchange with Dr. Weinberg yesterday. Objective - Vital Signs/Intake and Output Vital Signs (last 24 hours): Temp Pulse Resp BP Pulse Ox 98.4 F 61 18 119/70 97 06/15/18 16:25 06/15/18 16:25 06/15/18 16:25 06/15/18 16:25 06/15/18 16:25 Intake and Output: 06/15/18 06/15/18 06:59 18:59 Intake Total 460 Output Total 600 Balance -140 - Labs Labs: 06/14/18 08:10 06/14/18 08:10 PT 14.5 SECONDS (9.4-12.5) H 06/04/18 21:40 INR 1.27 06/04/18 21:40 APTT 31.2 Seconds (25.1-36.5) 06/04/18 21:40 - Constitutional Appears: Non-toxic, No Acute Distress, Chronically Ill - Head Exam Head Exam: ATRAUMATIC, NORMOCEPHALIC - Eye Exam Eye Exam: EOMI, PERRL Pupil Exam: NORMAL ACCOMODATION, PERRL - ENT Exam ENT Exam: Mucous Membranes Moist, Normal External Ear Exam, TM's Normal Bilaterally - Neck Exam Neck Exam: Full ROM, Normal Inspection - Respiratory Exam Respiratory Exam: Clear to Ausculation Bilateral, NORMAL BREATHING PATTERN. absent: Rales, Rhonchi, Wheezes - Cardiovascular Exam Cardiovascular Exam: REGULAR RHYTHM, RRR, +S1, +S2 - GI/Abdominal Exam GI & Abdominal Exam: Soft, Normal Bowel Sounds. absent: Distended, Tenderness - Extremities Exam Extremities Exam: Full ROM, Normal Inspection - Neurological Exam Neurological Exam: Alert, Awake, CN II-XII Intact, Oriented x3 - Psychiatric Exam Psychiatric exam: Normal Affect, Normal Mood - Skin Skin Exam: Intact, Normal Color Assessment and Plan - Assessment and Plan (Free Text) Assessment: 62 yo female with fevers for 1 day who has had several hospitalization to [facility] with UTI with ESBL+ Pseudomonas and E. coli. Patient with multiple medical issues including recurrent metastatic uterine carcinoma. Was on Cipro PO but de veloped fevers within three days of her last discharge from [facility]. Will start Meropenem until cultures return based on the previous recent hospitalizations. Supportive care. The patient will need at least 10 days of IV meropenem especially if the cultures return with the same organism as in the past hospitalizations. Medications can be given in hospital or via home IV infusion. At this point, c annot rule out UTI as source of fevers versus her metastatic uterine cancer. The patient may have fevers secondary to the metastatic uterine cancer. She was febrile about five nights ago to 101.6 F. Urine cultures showing multiple organisms of unknown significance. Repeat urine culture... small amount of yeast noted. Afebrile the past few days. Awaiting Urology evaluation. On day 10 of 10 of Meropenem. If repeat urine is negative and patient is still febrile, have to consider that fevers may be secondary to malignancy. Dr. Weinberg called to reevaluate prior stent placements for possible replacement or removal. Went to OR yesterday for stent exchange. Would give Meropenem for at least 3 days more post procedure and preferably 7. Thank you for allowing me to participate in the care of the patient, we will follow with you.
--- NOTE | 2018-06-16 17:59 | DS ---
HISTORY OF PRESENT ILLNESS: This 62-year-old female was examined at her bedside on the cardiac gibson at the [facility] on the afternoon of , 06/15/2018. Present for this interview was nurse, Ingrid Stevenson, registered nurse. The patient is being readied for discharge and is status post bilateral ureteral stent replacement by Dr. Yadiel Weinberg from Urology on the afternoon of 06/14/2018. I did discuss this case in detail with Dr. Nilesh Lloyd from Infectious Disease. She will continue on IV meropenem 500 mg every 12 hours with home infusion company for the next seven days. Dr. Lloyd will have the parenteral antibiotic infusion company call him for further orders regarding laboratories during this treatment at home. At the time of discharge, the patient's temperature was 98.4, respirations 18, pulse 61, and blood pressure 119/70 with a pulse ox of 97% on room air. White count was 6400, hemoglobin 8.8, hematocrit 28.0, platelets 367,000 and sodium is 141, K 4.9, chloride 110, bicarb 21, BUN 49, creatinine 3.2 and estimated GFR is 15 mL per minute. Random blood sugar was 105. FINAL DIAGNOSES: Recurrent urosepsis, improved; bilateral ureteral stents replaced for history of bilateral hydronephrosis, now improved in the setting of metastatic recurrent uterine cancer stage IV; obesity; chronic hypertension; iron deficiency anemia; peptic ulcer disease with gastroesophageal reflux disease; degenerative arthritis; history of gout; and hyperlipidemia. DISCHARGE MEDICATIONS: The patient is discharged to home on clonidine 0.2 mg p.o. b.i.d., Procardia XL 90 mg daily, Lopressor 150 mg p.o. b.i.d., meropenem 500 mg IV every 12 hours via left arm midline for the next seven days at which point the IV access should be removed. She will continue on Femara 2.5 mg p.o. daily, Fergon 324 mg p.o. t.i.d., Pepcid 20 mg p.o. at bedtime, Cardura 4 mg p.o. at bedtime, and Lipitor 10 mg p.o. at dinnertime. DISPOSITION: The patient will follow up with my office, Dr. Nilesh Lloyd, and Dr. Yadiel Weinberg who has advised the patient to have elective replacement of her ureteral stents mid July 2018 and also the patient will need to follow up with her oncologist, Dr. Kathy Coffman, medical doctor oncologist at [facility]. Greater than 35 minutes was spent in the care, management, review of labs, orders, x-rays and discussion of discharge management with this patient, her nurse, Dr. Nilesh Lloyd, Dr. Yadiel Weinberg and nurse case manager, Bushra Jacob. All questions were answered. Luisa Pa MD [facility]
--- NOTE | 2018-07-24 16:47 | OP ---
PROCEDURE DATE: 06/14/2018 PREOPERATIVE DIAGNOSIS: Hematuria, voiding dysfunction. POSTOPERATIVE DIAGNOSIS: Hematuria, voiding dysfunction. PROCEDURES: Cystoscopy, removal of left and right ureteral stents, bilateral retrograde pyelogram, and insertion of left and right ureteral stents. COMPLICATIONS: There were no complications. BLOOD LOSS: Less than 10 mL. INDICATIONS: See history and physical for the details. A very pleasant lady here for the above procedure, we were exchanging her stents. Further plan will follow. The urology operative findings are not specific. We were able to remove both stents and insert new stents bilaterally without complications. DESCRIPTION OF PROCEDURE: After obtaining informed consent, the patient was placed on the table. Routine monitor placed. Time-outs were called to confirm the patient and positioning. We removed the left double-J stent, wires passed up to the kidney and retrograde pyelogram was performed, open-ended catheter was inserted, a left retrograde pyelogram was performed and a left double-J stent wires were back in and the left double-J we did the same thing on the right side where the stent was removed, the wire over the wire, retrograde pyelogram performed and we then inserted the right double-J stent. The patient tolerated the procedure without complications. Yadiel Weinberg MD
== END 2018-06-15 17:41 | disposition home or self-care (01) | DRG 660 ==
LOC: ED 20:58 → ERH 23:12 → 3RNO 06-05 00:30 → OBSVTOIN 06-05 15:10 → 3RSO 06-14 17:33
PROVIDERS: ADMIT Internal Medicine; ATTEND Internal Medicine
PROC: 05HC33Z Insertion of Infusion Device into Left Basilic Vein, Percutaneous Approach (ICD-10-PCS; 2018-06-07)
PROC: B54NZZA Ultrasonography of Left Upper Extremity Veins, Guidance (ICD-10-PCS; 2018-06-07)
PROC: 0TP98DZ Removal of Intraluminal Device from Ureter, Via Natural or Artificial Opening Endoscopic (ICD-10-PCS; 2018-06-14)
PROC: BT141ZZ Fluoroscopy of Kidneys, Ureters and Bladder using Low Osmolar Contrast (ICD-10-PCS; 2018-06-14)
PROC: 0T788DZ Dilation of Bilateral Ureters with Intraluminal Device, Via Natural or Artificial Opening Endoscopic (ICD-10-PCS; principal; 2018-06-14 12:00)
DX: N39.0 Urinary tract infection, site not specified (principal); C78.7 Secondary malignant neoplasm of liver and intrahepatic bile duct; N18.4 Chronic kidney disease, stage 4 (severe); C54.1 Malignant neoplasm of endometrium; R50.81 Fever presenting with conditions classified elsewhere; I12.9 Hypertensive chronic kidney disease with stage 1 through stage 4 chronic kidney disease, or unspecified chronic kidney disease; D50.9 Iron deficiency anemia, unspecified; J44.9 Chronic obstructive pulmonary disease, unspecified; I48.2 Chronic atrial fibrillation; E78.00 Pure hypercholesterolemia, unspecified; F41.9 Anxiety disorder, unspecified; E78.5 Hyperlipidemia, unspecified; K21.9 Gastro-esophageal reflux disease without esophagitis; K27.9 Peptic ulcer, site unspecified, unspecified as acute or chronic, without hemorrhage or perforation; B36.9 Superficial mycosis, unspecified; M19.90 Unspecified osteoarthritis, unspecified site; D63.8 Anemia in other chronic diseases classified elsewhere; M10.9 Gout, unspecified; F51.04 Psychophysiologic insomnia; E66.9 Obesity, unspecified; Z68.36 Body mass index [BMI] 36.0-36.9, adult; Z85.42 Personal history of malignant neoplasm of other parts of uterus; Z79.811 Long term (current) use of aromatase inhibitors

== ENCOUNTER 2018-08-15 22:51 | Emergency (ER) | payer MEDICARE, BC ==
[2018-08-15 22:51] VITALS: BMI 46.0
[2018-08-15 23:00] VITALS: BP 139/68; PULSE 73; RESP 18; TEMP 98.8
--- NOTE | 2018-08-15 23:43 | ED PDOC ---
Arrival/HPI <Phan Romero - Last Filed: 08/16/18 02:09> - General Historian: Patient - History of Present Illness Narrative History of Present Illness (Text): 08/15/18 23:29 63 yo F w/ PMH of HTN, reports developing fever tonight of 101.6 with no other symptoms. Otherwise: (-) cough, (-) sore throat, (-) URI symptoms, (-) SOB, (-) chest pain, (-) N/V/D, (-) abdominal pain, (-) flank pain, (-) urinary symptoms, (-) recent travel, (-) rash, (+) sick contacts - grandchildren and has been sick. 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, VRE - Reproductive Menopause: Yes - Cardiac Hx Pacemaker: No - Pulmonary Hx Chronic Obstructive Pulmonary Disease (COPD): Yes - Neurological Hx Neurological Disorder: No - HEENT Hx HEENT Disorder: Yes (uses reading glasses) - Renal Hx Renal Failure: Yes (chronic stg 3) - Endocrine/Metabolic Hx Endocrine Disorders: No - Hematological/Oncological Hx Blood Transfusions: Yes Hx Blood Transfusion Reaction: No - Integumentary Hx Dermatological Disorder: Yes - Musculoskeletal/Rheumatological Hx Musculoskeletal Disorders: Yes Hx Falls: Yes (past) - Gastrointestinal Hx Gastrointestinal Disorders: Yes (obese) Hx Gastroesophageal Reflux: Yes - Genitourinary/Gynecological Hx Genitourinary Disorders: Yes Hx Hematuria: Yes Hx Incontinence: Yes Hx Urinary Tract Infection: Yes (mutiple tx at 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 but when pt asked she is not sure, pubic/suprapubic swelling and redness, red raised rash right buttock, redness to left buttock, redness travels from buttocks, perianal, b/l groin pubic, suprapubic, abd fold, right thigh 2cm x 1.5 cm pink pigmented slin, thick toenails - Psychiatric Hx Psychophysiologic Disorder: No Hx Substance Use: No - Surgical History Hx Mastectomy: No - Anesthesia Hx Anesthesia: Yes Hx Anesthesia Reactions: No Hx Malignant Hyperthermia: No - Suicidal Assessment Feels Threatened In Home Enviroment: No <Rosalina Arreaga PA-C - Last Filed: 08/16/18 02:13> Family/Social History Family/Social History: No Known Family HX Smoking Status: Never Smoked Hx Alcohol Use: No Hx Substance Use: No Hx Substance Use Treatment: No <Rosalina Arreaga PA-C - Last Filed: 08/16/18 02:13> Allergies/Home Meds <Phan Romero - Last Filed: 08/16/18 02:09> <Rosalina Arreaga PA-C - Last Filed: 08/16/18 02:13> Allergies/Adverse Reactions: Allergies No Known Allergies Allergy (Verified 08/15/18 23:00) Review of Systems - Review of Systems Constitutional: Fevers. absent: Fatigue ENT: absent: Sore Throat, Rhinorrhea Respiratory: absent: SOB, Cough Cardiovascular: absent: Chest Pain, Palpitations Gastrointestinal: absent: Abdominal Pain, Diarrhea, Vomiting Genitourinary Female: absent: Dysuria, Frequency Musculoskeletal: absent: Arthralgias, Neck Pain Skin: absent: Rash, Pruritis, Skin Lesions <Rosalina Arreaga PA-C - Last Filed: 08/16/18 02:13> Physical Exam Vital Signs Temp Pulse Resp BP Pulse Ox 08/15/18 22:53 98.8 F 73 18 139/68 99 <Phan Romero - Last Filed: 08/16/18 02:09> Vital Signs Temp Pulse Resp BP Pulse Ox 08/15/18 22:53 98.8 F 73 18 139/68 99 Temperature: Afebrile Blood Pressure: Normal Pulse: Regular Respiratory Rate: Normal Appearance: Positive for: Well-Appearing, Non-Toxic, Comfortable Pain Distress: None Mental Status: Positive for: Alert and Oriented X 3 - Systems Exam Head: Present: Atraumatic, Normocephalic Pupils: Present: PERRL Extroacular Muscles: Present: EOMI Conjunctiva: Present: Normal Ears: Present: Normal, NORMAL TM Mouth: Present: Moist Mucous Membranes Pharnyx: Present: Normal. No: ERYTHEMA, EXUDATE Neck: Present: Normal Range of Motion. No: Meningeal Signs, Lymphadenopathy Respiratory/Chest: Present: Clear to Auscultation, Good Air Exchange. No: Respiratory Distress, Accessory Muscle Use Cardiovascular: Present: Regular Rate and Rhythm, Normal S1, S2. No: Murmurs Abdomen: No: Tenderness, Distention, Peritoneal Signs Back: Present: Normal Inspection Upper Extremity: Present: Normal Inspection. No: Cyanosis, Edema Lower Extremity: Present: Normal Inspection. No: Edema Neurological: Present: GCS=15, CN II-XII Intact, Speech Normal, Motor Func Jessie sly Intact, Normal Sensory Function Skin: Present: Warm, Dry, Normal Color. No: Rashes Psychiatric: Present: Alert, Oriented x 3, Normal Insight, Normal Concentration <Rosalina Arreaga PA-C - Last Filed: 08/16/18 02:13> Medical Decision Making - Lab Interpretations Lab Results: 08/15/18 23:43 08/15/18 23:42 Lab Results 08/16/18 01:05: Urine Color Yellow, Urine Appearance Cloudy, Urine pH 6.0, Ur Specific [place] 1.020, Urine Protein 100 H, Urine Glucose (UA) Negative, Urine Ketones Negative, Urine Blood Large H, Urine Nitrate Negative, Urine Bilirubin Negative, Urine Urobilinogen 0.2, Ur Leukocyte Esterase Moderate H, Urine RBC 2 - 5 H, Urine WBC Tntc H, Ur Epithelial Cells 0 - 2, Urine Bacteria Many 08/15/18 23:43: pO2 44, VBG pH 7.33, VBG pCO2 35.0 L, VBG HCO3 18.5 L, VBG Total CO2 19.6 L, VBG O2 Sat (Calc) 81.3 H, VBG Base Excess -6.6 L, VBG Potassium 3.7, Glucose 140 H, Lactate 1.0, FiO2 21.0, Sodium 136.0, Chloride 107.0, Venous Blood Potassium 3.7 08/15/18 23:43: Influenza Typ A,B (EIA) Negative for flu a/b 08/15/18 23:43: WBC 5.7, RBC 3.23 L, Hgb 9.7 L, Hct 30.7 L, MCV 95.0, MCH 30.0, MCHC 31.6, RDW 14.2, Plt Count 291, MPV 8.7, Gran % 76.8 H, Lymph % (Auto) 10.1 L, Sherman % (Auto) 11.7 H, Eos % (Auto) 1.2 L, Baso % (Auto) 0.2, Gran # 4.39, Lymph # (Auto) 0.6 L, Sherman # (Auto) 0.7 H, Eos # (Auto) 0.1, Baso # (Auto) 0.01 08/15/18 23:42: Sodium 137, Potassium 3.9, Chloride 109 H, Carbon Dioxide 18 L, Anion Gap 14, BUN 27 H, Creatinine 2.3 H, Est GFR ( Amer) 26, Est GFR (Non-Af Amer) 21, Random Glucose 140 H, Calcium 9.0, Total Bilirubin 0.5, AST 19, ALT 28, Alkaline Phosphatase 72, Total Protein 8.1, Albumin 3.6, Globulin 4.5, Albumin/Globulin Ratio 0.8 L - RAD Interpretation Radiology Orders: 08/15/18 23:18 CHEST TWO VIEWS (PA/LAT) [RAD] Stat <Phan Romero - Last Filed: 08/16/18 02:09> ED Course and Treatment: 08/15/18 23:44 Plan: -- Labs -- IV fluids -- Urinalysis -- CXR -- Influenza -- Reassess and disposition Labs : wbc 5.7, lactate 1, Rapid flu : (-) CXR : NAD. UA : +moderate leuks On reevaluation, patient patient remains awake alert and oriented 3 in no acute distress. Results d/w the patient. Diagnosis of UTI d/w the patient. Given keflex po. Advised to follow up with primary care physician in 1-2 days without fail. Advised to take medication as prescribed. Return to the emergency room at any time for any new or worsening symptoms. Patient states she fully agrees with and understands discharge instructions. States that she agrees with the plan and disposition. Verbalized and repeated discharge instructions and plan. I have given the patient opportunity to ask any additional questions. - RAD Interpretation Radiology Orders: 08/15/18 23:18 CHEST TWO VIEWS (PA/LAT) [RAD] Stat <Rosalina Arreaga PA-C - Last Filed: 08/16/18 02:13> - PA / SMALL BRAKE FORM OPERATOR / Resident Statement / has reviewed & agrees with the documentation as recorded. <HeatherPhan - Last Filed: 08/16/18 02:09> - PA / SMALL BRAKE FORM OPERATOR / Resident Statement / has reviewed & agrees with the documentation as recorded. <Rosalina Arreaga PA-C - Last Filed: 08/16/18 02:13> Disposition/Present on Arrival <Heather,Phan - Last Filed: 08/16/18 02:09> - Present on Arrival Any Indicators Present on Arrival: No History of DVT/PE: No History of Uncontrolled Diabetes: No Urinary Catheter: No History of Decub. Ulcer: No History Surgical Site Infection Following: None - Disposition Have Diagnosis and Disposition been Completed?: Yes Disposition Time: 02:00 Patient Plan: Discharge <Rosalina Arreaga PA-C - Last Filed: 08/16/18 02:13> - Disposition Diagnosis: Fever, UTI (urinary tract infection) Disposition: HOME/ ROUTINE Patient Problems: Current Active Problems Problem Status Onset UTI (urinary tract infection) Acute Fever Acute Condition: STABLE Discharge Instructions (ExitCare): Urinary Tract Infections in Adults, Fever, Adult (DC) Additional Instructions: Thank you for letting us take care of you today. You were treated for fever, UTI. The emergency medical care you received today was directed at your acute symptoms. If you were prescribed any medication, please fill it and take as directed. It may take several days for your symptoms to resolve. Return to the Emergency Department if your symptoms worsen, do not improve, or if you have any other problems. Please contact your doctor in 2 days for re-evaluation and follow up. Bring any paperwork you were given at discharge with you along with any medications you are taking to your follow up visit. Our treatment cannot replace ongoing medical care by a primary care provider (PCP) outside of the emergency department. Thank you for allowing the [facility] team to be part of your care today. If you had an X-Ray : A Radiologist will review the ED reading if any change in treatment is needed we will contact you. If you had a blood, urine culture: It will take several days for the results, if any change in treatment is needed we will contact you. Prescriptions: Cephalexin [Keflex] 500 mg PO BID #14 capsule Referrals: Luisa Pa MD [Primary Care Provider] - Follow up with primary Forms: [employer] (Taiwanese)
[2018-08-16 00:04] LABS: BASO # 0.01 K/mm3 (0.0-2.0); BASO % 0.2 % (0.0-3.0); EOS # 0.1 (0.0-0.7); EOS % 1.2 % (1.5-5.0); GRAN # 4.39 (1.4-6.5); GRAN % 76.8 % (50.0-68.0); HEMOGLOBIN 9.7 g/dL (12.0-16.0); LYMPH # 0.6 (1.2-3.4); LYMPH % 10.1 % (22.0-35.0); MEAN CORPUSCULAR HGB CONC 31.6 g/dl (31.0-37.0); MEAN PLATELET VOLUME 8.7 fl (7.0-11.0); MONO # 0.7 (0.1-0.6); MONO % 11.7 % (1.0-6.0); RBC 3.23 10^6/uL (3.5-6.1); RED CELL DISTRIBUTION WIDTH 14.2 % (11.5-14.5); WHITE BLOOD COUNT 5.7 10^3/uL (4.5-11.0)
[2018-08-16 00:07] LABS: VENOUS BLOOD GAS BASE EXCESS -6.6 mmol/L (0.0-2.0); VENOUS BLOOD GAS PO2 44 mm/Hg (30-55); VENOUS BLOOD PH 7.33 (7.32-7.43)
[2018-08-16 01:55] LABS: URINE BILIRUBIN NEGATIVE (NEGATIVE); URINE BLOOD LARGE (NEGATIVE); URINE GLUCOSE (UA) NEGATIVE (NEGATIVE); URINE LEUKOCYTE ESTERASE MODERATE Leu/uL (NEGATIVE); URINE PROTEIN 100 mg/dL (<30 mg/dL); URINE UROBILINOGEN 0.2 E.U./dL (<1 E.U./dL)
[2018-08-16 01:56] LABS: URINE APPEARANCE CLOUDY (CLEAR); URINE COLOR YELLOW (YELLOW)
[2018-08-16 01:59] LABS: ALB/GLOB RATIO 0.8 (1.1-1.8); ALBUMIN 3.6 g/dL (3.0-4.8)
[2018-08-16 02:07] LABS: URINE BACTERIA MANY /hpf; URINE EPITHELIAL CELLS 0 - 2 /hpf (0-5); URINE WBC TNTC /hpf (0-6)
[2018-08-16 02:32] VITALS: O2SAT 98
--- NOTE | 2018-08-16 09:02 | RAD ---
Date of service: 08/15/2018 HISTORY: fever COMPARISON: 06/04/2018 TECHNIQUE: Chest PA and lateral FINDINGS: LUNGS: No active pulmonary disease. PLEURA: No significant pleural effusion identified. No pneumothorax apparent. CARDIOVASCULAR: Aortic calcification Normal cardiac size. No pulmonary vascular congestion. OSSEOUS STRUCTURES: No significant abnormalities. VISUALIZED UPPER ABDOMEN: Normal. OTHER FINDINGS: None. IMPRESSION: No active disease.
== END 2018-08-16 02:31 | disposition home or self-care (01) ==
LOC: ED 22:51
DX: N39.0 Urinary tract infection, site not specified (principal); R50.9 Fever, unspecified; I10 Essential (primary) hypertension

== ENCOUNTER 2018-08-30 06:06 | Inpatient (IN) | payer MEDICARE, BC ==
[2018-08-24 08:04] VITALS: BMI 37.9
[2018-08-30] MEDS ORDERED: Iohexol 240 (50 ml) ONE (07:34)
[2018-08-30] MEDS ORDERED: Midazolam 2 MG/2 ML VIAL ONE (10:40)
[2018-08-30] MEDS ORDERED: Propofol 10 mg/ml Inj (20 ML) ONE (10:40)
[2018-08-30] MEDS ORDERED: cefTRIAXone (Rocephin) 1 gm Inj ONE (10:47)
[2018-08-30] MEDS ORDERED: cefTRIAXone 1 GM in NS 100 ML BAG IVPB ONE (11:00)
[2018-08-30] MEDS ORDERED: Oxycodone/Acetaminophen 5/325 mg Tab PO PRN (11:29)
[2018-08-30] MEDS ORDERED: Sodium Chloride 0.9% 1,000 ML IV SCH (11:30)
[2018-08-30] MEDS ORDERED: Ciprofloxacin 400mg/200ml D5W 400 MG/200 ML BAG IVPB STA (11:30)
[2018-08-30] MEDS ORDERED: Ciprofloxacin 400mg/200ml D5W 400 MG/200 ML BAG IVPB ONE (12:38)
[2018-08-30] MEDS ORDERED: Ciprofloxacin 400mg/200ml D5W IVPB ONE (12:46)
--- NOTE | 2018-08-30 14:16 | HP ---
DATE OF EXAM: 08/30/2018 UROLOGY ADMISSION REASON FOR ADMISSION: To change a stent. HISTORY OF PRESENT ILLNESS: A very pleasant lady, she has a stage 4 uterine cancer. She is under the care of a Dr. , her medical doctor, Dr. Pa. She is at somewhat a high risk for this procedure, but she has bilateral bilateral hydronephrosis. At this point, she is stable. From urology standpoint, we had to change her catheter. PAST MEDICAL AND SURGICAL HISTORY: As listed on the chart, otherwise no history of [place], CVA. SOCIAL HISTORY: She is here with her , otherwise unremarkable. REVIEW OF SYSTEMS: As listed above, otherwise noncontributory. PHYSICAL EXAMINATION GENERAL: A well-nourished female, in no apparent distress. VITAL SIGNS: Within normal limits. The diagnosis then is hydronephrosis and stage 4 uterine cancer. ASSESSMENT AND PLAN: In summary, this is very pleasant 63-year-old lady who is now stable. From our standpoint, we are going to change her stents today. Risks and benefits discussed at length. We are going to plan to proceed. We are going to provide antibiotic prophylaxis, and we will change the stents and involved. Yadiel Weinberg MD
--- NOTE | 2018-08-30 15:52 | CON ---
DATE: 08/30/2018 MEDICAL NEPHROLOGY CONSULTATION HISTORY OF PRESENT ILLNESS: This 63-year-old female was admitted to the [facility] on the morning of 08/30/2018. She has bilateral chronic hydronephrosis and requires a bilateral ureteral stent replacement under the direction of Dr. Yadiel Weinberg from Urology to prevent urosepsis. PAST MEDICAL HISTORY: Her past medical history is complicated and includes stage IV metastatic uterine cancer, chronic renal failure stage 4 with bilateral hydronephrosis requiring bilateral stent on a chronic basis. She has a history of peptic ulcer disease, morbid obesity, chronic hypertension, hyperlipidemia, iron-deficiency anemia, degenerative arthritis. MEDICATIONS: At present is taking medication including Femara, Pepcid, Cardura, clonidine, Procardia, Lopressor, Lipitor, and Feosol. The patient follows with her oncologist at [facility] in [place], [place] and Dr. Yadiel Weinberg from Urology. ALLERGIES: SHE HAS NO KNOWN ALLERGIES TO MEDICATION. SOCIAL HISTORY: She is a current nondrinker, nonsmoker, non IV drug misuser. FAMILY HISTORY: Noncontributory. REVIEW OF SYSTEMS: CONSTITUTIONAL REVIEW: She was noted this morning to have a low-grade temperature of 99.1 and was premedicated with Rocephin 1 g IV stat. She denied any chills or rigors. HEAD REVIEW: No headache or seizure. EYE REVIEW: No change in visual acuity. EAR REVIEW: No hearing loss. THROAT REVIEW: No swallowing difficulty. NECK REVIEW: No stiffness. CARDIAC REVIEW: No chest pain. PULMONARY: No cough. GI: No hematemesis. No melena. : No dysuria. SKIN: No rash. VASCULAR: No claudication. PSYCHOLOGICAL: No depression. NEUROLOGICAL: No knowledge of stroke. PHYSICAL EXAMINATION: VITAL SIGNS: Temperature was 99.1, respirations 16, pulse 62, blood pressure 130/55, and pulse ox 99%, 2 liters nasal O2. HEENT: Head: Normocephalic, atraumatic. Eyes: No icterus. Ears: Clear. Throat: Non-injected. NECK: Supple. HEART: S1, S2. LUNGS: Clear. ABDOMEN: Obese, nontender. No palpable organomegaly. No rebound, no guarding, no tenderness. VASCULAR: Legs warm to touch. PSYCHOLOGICAL: Alert. NEURO: Intact. LABORATORY DATA: White count 5700, hemoglobin 9.7, hematocrit 30.7, and platelets 291,000. Sodium 137, potassium 3.9, chloride 109, bicarb 18, BUN 27, creatinine 2.3. Estimated GFR 21 cc per minute. Sugar 140, calcium 9. Bilirubin 0.5, AST 19, ALT 28, and alk phos 72 with an albumin of 3.6. Influenza A, B serologies were negative and urine cultures dated 08/16/2018 showed no growth and blood culture showing no growth from 08/15/2018 as well. Chest x-ray was reviewed dated 08/15/2018, It showed no active pulmonary disease, no pneumothorax, no infiltrate, no effusions. IMPRESSION: This is a 63-year-old female with medical history as listed above. This case was reviewed in detail with her , Joe and Dr. Yadiel Weinberg. The patient will be scheduled for bilateral ureteral stent replacement. Urine cultures will be sent. She was given 1 g of IV Rocephin and will be sent home if stable postprocedure on Levaquin 500 mg p.o. daily for 3 days and has been given a prescription for Tylenol p.r.n. pain or temperature greater than 101. As always the patient and family were advised for any change in signs and symptoms to present directly to the [facility] ER. Greater than 45 minutes was spent in the care management, review of labs, orders and x-rays, and discussion of this patient's case with Dr. Weinberg, her , and nursing. All questions were answered Luisa Pa MD
--- NOTE | 2018-08-30 20:50 | CP.PCM.CON ---
History of Present Illness - History of Present Illness History of Present Illness: Infectious Disease Consultation: August 30, 2018 63 yo female with known history of metastatic uterine carcinoma. The patient was brought into [facility] [place] for bilateral urethral stent replacements for her chronic bilateral hydronephrosis. She developed borderline fevers and hypotension while in recovery. She was admitted for evaluation and overnight monitoring. PMHx: Uterine Carcinoma with metastatic disease, Obesity, hypertension, anemia, hyperlipidemia, GERDs, bilateral hydronephrosis with replaced bilateral urethral stents, chronic renal disease stage III, degenerative arthritis, and COPD PSHx: Bilateral urethral stents Allergies: NKDA Social Hx: No tobacco, no EtOH, or illicit drug use Active Medications Acetaminophen (Tylenol 325mg Tab) 650 mg PO Q4H PRN PRN Reason: for temp 101 or above Last Admin: 08/30/18 15:54 Dose: 650 mg Oxycodone/Acetaminophen (Percocet 5/325 Mg Tab) 1 tab PO Q6H PRN PRN Reason: Bladder Spasm Stop: 09/02/18 11:30 Family Hx: None given ROS: Patient stating fever. No headaches, dizziness, chest pain, abdominal pain, melena, hematuria, hematemesis, hematochezia, depression, anxiety Past Patient History - Infectious Disease Hx of Infectious Diseases: ESL, VRE - Past Social History Smoking Status: Never Smoked - CARDIAC Hx Pacemaker: No - PULMONARY Hx Chronic Obstructive Pulmonary Disease (COPD): Yes - NEUROLOGICAL Hx Neurological Disorder: No - HEENT Hx HEENT Problems: Yes (uses reading glasses) - RENAL Hx Renal Failure: Yes (chronic stg 3) - ENDOCRINE/METABOLIC Hx Endocrine Disorders: No - HEMATOLOGICAL/ONCOLOGICAL Hx Blood Transfusions: Yes Hx Blood Transfusion Reaction: No - INTEGUMENTARY Hx Dermatological Problems: Yes - MUSCULOSKELETAL/RHEUMATOLOGICAL Hx Musculoskeletal Disorders: Yes - GASTROINTESTINAL Hx Gastrointestinal Disorders: Yes (obese) Hx Gastroesophageal Reflux: Yes - GENITOURINARY/GYNECOLOGICAL Hx Genitourinary Disorders: Yes Hx Hematuria: Yes Hx Incontinence: Yes Hx Urinary Tract Infection: Yes (mutiple tx at [facility] and 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 but when pt asked she is not sure, pubic/suprapubic swelling and redness, red raised rash right buttock, redness to left buttock, redness travels from buttocks, perianal, b/l groin pubic, suprapubic, abd fold, right thigh 2cm x 1.5 cm pink pigmented slin, thick toenails - PSYCHIATRIC Hx Emotional Abuse: No Hx Physical Abuse: No Hx Substance Use: No - SURGICAL HISTORY Hx Surgeries: Yes - ANESTHESIA Hx Anesthesia Reactions: No Hx Malignant Hyperthermia: No Meds Allergies/Adverse Reactions: Allergies Allergy/AdvReac Type Severity Reaction Status Date / Time No Known Allergies Allergy Verified 08/15/18 23:00 - Medications Medications: Current Medications Acetaminophen (Tylenol 325mg Tab) 650 mg PO Q4H PRN PRN Reason: for temp 101 or above Last Admin: 08/30/18 15:54 Dose: 650 mg Oxycodone/Acetaminophen (Percocet 5/325 Mg Tab) 1 tab PO Q6H PRN PRN Reason: Bladder Spasm Stop: 09/02/18 11:30 Physical Exam - Constitutional Appears: Non-toxic, No Acute Distress, Chronically Ill - Head Exam Head Exam: ATRAUMATIC, NORMOCEPHALIC - Eye Exam Eye Exam: EOMI, PERRL Pupil Exam: NORMAL ACCOMODATION, PERRL - ENT Exam ENT Exam: Mucous Membranes Moist, Normal External Ear Exam, TM's Normal Bilaterally - Neck Exam Neck exam: Positive for: Full Rom, Normal Inspection - Respiratory Exam Respiratory Exam: Clear to Auscultation Bilateral, NORMAL BREATHING PATTERN. absent: Rales, Rhonchi, Wheezes - Cardiovascular Exam Cardiovascular Exam: REGULAR RHYTHM, RRR, +S1, +S2 - GI/Abdominal Exam GI & Abdominal Exam: Normal Bowel Sounds, Soft. absent: Distended, Tenderness - Extremities Exam Extremities exam: Positive for: full ROM, normal inspection - Neurological Exam Neurological exam: Alert, CN II-XII Intact, Oriented x3 - Psychiatric Exam Psychiatric exam: Normal Affect, Normal Mood - Skin Skin Exam: Intact, Normal Color Results - Vital Signs Recent Vital Signs: Last Vital Signs Temp 98.9 F 08/30/18 15:55 Pulse 100 H 08/30/18 15:55 Resp 20 08/30/18 15:55 BP 156/86 H 08/30/18 15:55 Pulse Ox 98 08/30/18 15:55 Assessment & Plan - Assessment and Plan (Free Text) Assessment: 63 yo female well known to me presenting for bilateral urethral stent exchange. She developed hypotension and borderline fevers in recovery room Hu cultures sent. Prior history of ESBL+ Pseudomonas and E.coli. Will start Meropenem IV for now. R/O sepsis. R/O UTI given patient's history. Supportive care. Thank you for allowing me to participate in the care of the patient, we will bret gordillo with you.
[2018-08-30] MEDS: MEROPENEM 500 MG in NS 500 MG/50 ML BAG IVPB SCH (21:59)
[2018-08-31] MEDS ORDERED: Influenza Vaccine 60 mcg/0.5 mL SYR (4YR UP) IM ONE (02:43)
[2018-08-31] MEDS ORDERED: Pneumococcal 23-Valent Vaccine IM ONE (02:43)
--- NOTE | 2018-08-31 08:33 | OP ---
PROCEDURE DATE: 08/30/2018 UROLOGY OPERATIVE NOTE PREOPERATIVE DIAGNOSES: Bilateral hydronephrosis in a patient with advanced stage uterine cancer. POSTOPERATIVE DIAGNOSES: Bilateral hydronephrosis in a patient with advanced stage uterine cancer. PROCEDURE: . SURGEON: Yadiel Weinberg MD COMPLICATIONS: There were no complications. INDICATION FOR THE PROCEDURE: Please see the history and physical for further details. Briefly, a pleasant lady with advanced cancer, but it has been stable, has not been progressing and so we have discussed option for the patient, and she is here now for the above procedure. There is no progression, it is just a stable advanced cancer. See results. UROLOGY OPERATIVE FINDINGS: Blood loss today is less than 10 mL. There were no complications. FINDINGS: 1. The bladder mucosa is somewhat erythematous. and there is debris, but there is no specific abnormality, no lesion. There is more right hydro than left, but at the termination of the procedure, there is in good location. See results. DESCRIPTION OF PROCEDURE: After obtaining informed consent, the patient was placed on the table. Routine monitor was placed. Time-out was called to confirm the patient and positioning. We introduced cysto via the urethra. We noted some cloudy urine, sent it off for culture. We removed the left stent first to do a left retrograde pyelogram, open-ended standard technique. We have a new stent in location. We now turned our attention to the right side. In this case, I sent both stents down just for confirmation. The patient had 2D stent that has been working well, bladder was emptied, this was removed. Exam of the revealed no major other changes. PLAN: The patient will be discharged home. We will see the culture results. Yadiel Weinberg MD
[2018-08-31 11:56] LABS: HEMOGLOBIN 9.8 g/dL (12.0-16.0); MEAN CELL VOLUME 98.1 fl (80.0-105.0); MEAN CORPUSCULAR HEMOGLOBIN 30.5 pg (25.0-35.0); MEAN CORPUSCULAR HGB CONC 31.1 g/dl (31.0-37.0); MEAN PLATELET VOLUME 8.6 fl (7.0-11.0); RBC 3.21 10^6/uL (3.5-6.1)
[2018-08-31 12:13] LABS: ALB/GLOB RATIO 0.8 (1.1-1.8); ALBUMIN 3.5 g/dL (3.0-4.8); CALCIUM 9.1 mg/dL (8.4-10.5)
--- NOTE | 2018-08-31 12:23 | CP.PCM.APN ---
Subjective - Date & Time of Evaluation Date of Evaluation: 08/31/18 Time of Evaluation: 10:15 - Subjective Subjective: Pt seen and examined at bedside. She is in no acute distress. Denies dysuria, urinary frequency/urgency. Objective - Vital Signs/Intake and Output Vital Signs (last 24 hours): Temp Pulse Resp BP Pulse Ox 99.1 F 81 21 136/58 L 99 08/31/18 06:00 08/31/18 12:02 08/31/18 06:00 08/31/18 12:02 08/31/18 06:00 - Medications Medications: Current Medications Acetaminophen (Tylenol 325mg Tab) 650 mg PO Q6H PRN PRN Reason: for temp 101 or above Atorvastatin Calcium (Lipitor) 10 mg PO DIN [facility] Clonidine HCl (Catapres) 0.1 mg PO BID [facility] Last Admin: 08/31/18 12:02 Dose: 0.1 mg Doxazosin Mesylate (Cardura) 4 mg PO HS [facility] Famotidine (Pepcid) 20 mg PO HS [facility] Ferrous Gluconate (Fergon) 324 mg PO DAILY [facility] Meropenem/Sodium Chloride (Merrem Iv 500 Mg/Ns 50 Ml) 500 mg in 50 mls @ 100 mls/hr IVPB Q24H [facility]; Protocol Last Admin: 08/30/18 21:59 Dose: 100 mls/hr Letrozole (Femara) 2.5 mg PO DAILY [facility] Last Admin: 08/31/18 11:52 Dose: 2.5 mg Metoprolol Tartrate (Lopressor) 50 mg PO BID [facility] Nifedipine (Procardia Xl) 90 mg PO DAILY [facility] Ondansetron HCl (Zofran Inj) 4 mg IVP Q6H PRN PRN Reason: Nausea/Vomiting Oxycodone/Acetaminophen (Percocet 5/325 Mg Tab) 1 tab PO Q6H PRN PRN Reason: Bladder Spasm Stop: 09/02/18 11:30 - Labs Labs: 08/31/18 11:50 08/31/18 11:50 - Constitutional Appears: Well, No Acute Distress - Head Exam Head Exam: ATRAUMATIC - Eye Exam Eye Exam: Normal appearance - Neck Exam Neck Exam: Full ROM - Respiratory Exam Respiratory Exam: Clear to Ausculation Bilateral, NORMAL BREATHING PATTERN - Cardiovascular Exam Cardiovascular Exam: REGULAR RHYTHM, +S1, +S2 - GI/Abdominal Exam GI & Abdominal Exam: Soft, Normal Bowel Sounds - Rectal Exam Rectal Exam: Deferred - Neurological Exam Neurological Exam: Alert, Awake, Oriented x3 Assessment and Plan - Assessment and Plan (Free Text) Assessment: Pt is a 63 y.o. female w/ pmhx of uterine carcinoma with metastatic disease, Obesity, hypertension, anemia, hyperlipidemia, GERDs, bilateral hydronephrosis with replaced bilateral urethral stents, chronic renal disease stage III, degenerative arthritis, and COPD who was admitted s/p cysto w/ rey ureteral JJ stent exchange due to post op fever (tmax 101.0). Plan: UA, UCX pending D/W PMD, will need at least one week of Merrem IV TCU Eval pending per MD request Meds per MAR Will continue to follow
--- NOTE | 2018-08-31 14:45 | PCM.URO ---
Urology Progress Note - Objective Lab Studies: Reviewed (plans for discharge for when clear from dr zhang and dr woods) Lab Results Last 24 Hours: Laboratory Results - last 24 hr 08/31/18 08/31/18 11:50 11:50 WBC 5.0 RBC 3.21 L Hgb 9.8 L Hct 31.5 L MCV 98.1 D MCH 30.5 MCHC 31.1 RDW 14.0 Plt Count 248 MPV 8.6 Sodium 140 Potassium 4.6 Chloride 108 H Carbon Dioxide 24 Anion Gap 12 BUN 30 H Creatinine 2.6 H Est GFR ( Amer) 22 Est GFR (Non-Af Amer) 18 Random Glucose 151 H Calcium 9.1 Total Bilirubin 0.2 AST 29 ALT 34 Alkaline Phosphatase 77 Total Protein 7.8 Albumin 3.5 Globulin 4.3 Albumin/Globulin Ratio 0.8 L Intake & Output: Intake & Output 08/30/18 08/31/18 08/31/18 18:59 06:59 18:59 Intake Total 100 Balance 100 Weight 235 lb Intake: IV 100 Vital Signs: Vital Signs - 24 hr 08/30/18 08/30/18 08/31/18 15:55 22:00 01:12 Temperature 98.9 F 100.2 F H 101.0 F H Pulse Rate 100 H 70 Respiratory 20 18 Rate Blood Pressure 156/86 H 144/76 O2 Sat by Pulse 98 96 Oximetry 08/31/18 08/31/18 08/31/18 02:31 06:00 12:02 Temperature 99.1 F Pulse Rate 66 81 Respiratory 20 21 Rate Blood Pressure 129/58 L 136/58 L O2 Sat by Pulse 99 Oximetry
--- NOTE | 2018-08-31 20:08 | CP.PCM.PN ---
Subjective - Date & Time of Evaluation Date of Evaluation: 08/31/18 Time of Evaluation: 18:00 - Subjective Subjective: Infectious Disease Follow Up: August 31, 2018 63 yo female with known history of metastatic uterine carcinoma. The patient was brought into [facility] for bilateral urethral stent replacements for her chronic bilateral hydronephrosis. She developed borderline fevers and hypotension while in recovery. She was admitted for evaluation and overnight monitoring. Objective - Vital Signs/Intake and Output Vital Signs (last 24 hours): Temp Pulse Resp BP Pulse Ox 99.2 F 116 H 20 156/77 H 100 08/31/18 14:00 08/31/18 17:59 08/31/18 14:00 08/31/18 17:59 08/31/18 14:00 - Medications Medications: Current Medications Acetaminophen (Tylenol 325mg Tab) 650 mg PO Q6H PRN PRN Reason: for temp 101 or above Atorvastatin Calcium (Lipitor) 10 mg PO DIN [facility] Last Admin: 08/31/18 18:00 Dose: 10 mg Clonidine HCl (Catapres) 0.1 mg PO BID [facility] Last Admin: 08/31/18 17:59 Dose: 0.1 mg Doxazosin Mesylate (Cardura) 4 mg PO HS [facility] Famotidine (Pepcid) 20 mg PO HS [facility] Ferrous Gluconate (Fergon) 324 mg PO DAILY [facility] Meropenem/Sodium Chloride (Merrem Iv 500 Mg/Ns 50 Ml) 500 mg in 50 mls @ 100 mls/hr IVPB Q24H [facility]; Protocol Last Admin: 08/30/18 21:59 Dose: 100 mls/hr Letrozole (Femara) 2.5 mg PO DAILY [facility] Last Admin: 08/31/18 11:52 Dose: 2.5 mg Metoprolol Tartrate (Lopressor) 50 mg PO BID [facility] Nifedipine (Procardia Xl) 90 mg PO DAILY [facility] Ondansetron HCl (Zofran Inj) 4 mg IVP Q6H PRN PRN Reason: Nausea/Vomiting Oxycodone/Acetaminophen (Percocet 5/325 Mg Tab) 1 tab PO Q6H PRN PRN Reason: Bladder Spasm Stop: 09/02/18 11:30 - Labs Labs: 08/31/18 11:50 08/31/18 11:50 - Constitutional Appears: Non-toxic, No Acute Distress, Chronically Ill - Head Exam Head Exam: ATRAUMATIC, NORMOCEPHALIC - Eye Exam Eye Exam: EOMI, PERRL Pupil Exam: NORMAL ACCOMODATION, PERRL - ENT Exam ENT Exam: Mucous Membranes Moist, Normal External Ear Exam, TM's Normal Bilaterally - Neck Exam Neck Exam: Full ROM, Normal Inspection - Respiratory Exam Respiratory Exam: Clear to Ausculation Bilateral, NORMAL BREATHING PATTERN. absent: Rales, Rhonchi, Wheezes - Cardiovascular Exam Cardiovascular Exam: REGULAR RHYTHM, RRR, +S1, +S2 - GI/Abdominal Exam GI & Abdominal Exam: Soft, Normal Bowel Sounds. absent: Distended, Tenderness - Extremities Exam Extremities Exam: Full ROM, Normal Inspection - Neurological Exam Neurological Exam: Alert, Awake, CN II-XII Intact, Oriented x3 - Psychiatric Exam Psychiatric exam: Normal Affect, Normal Mood - Skin Skin Exam: Intact, Normal Color Assessment and Plan - Assessment and Plan (Free Text) Assessment: 63 yo female well known to me presenting for bilateral urethral stent exchange. She developed hypotension and borderline fevers in recovery room Hu cultures sent. Prior history of ESBL+ Pseudomonas and E.coli. Continue with Meropenem IV for now. R/O sepsis. R/O UTI given patient's history. No urine cultures from time of procedure. Supportive care. Thank you for allowing me to participate in the care of the patient, we will follow with you.
[2018-08-31] MEDS: MEROPENEM 500 MG in NS 500 MG/50 ML BAG IVPB SCH (20:42)
[2018-09-01 07:57] VITALS: RESP 18
[2018-09-01] MEDS: NIFEdipine 90 mg ER Tab PO SCH (10:46)
--- NOTE | 2018-09-01 11:40 | PCM.URO ---
Urology Progress Note - Subjective Abdominal Pain: Yes (will discharge hoem when cleared by dr zhang and dr woods) - Objective Lab Results Last 24 Hours: Laboratory Results - last 24 hr 08/31/18 08/31/18 08/31/18 11:50 11:50 11:50 WBC 5.0 RBC 3.21 L Hgb 9.8 L Hct 31.5 L MCV 98.1 D MCH 30.5 MCHC 31.1 RDW 14.0 Plt Count 248 MPV 8.6 Sodium 140 Potassium 4.6 Chloride 108 H Carbon Dioxide 24 Anion Gap 12 BUN 30 H Creatinine 2.6 H Est GFR ( Amer) 22 Est GFR (Non-Af Amer) 18 Random Glucose 151 H Calcium 9.1 Total Bilirubin 0.2 AST 29 ALT 34 Alkaline Phosphatase 77 Total Protein 7.8 Albumin 3.5 Globulin 4.3 Albumin/Globulin Ratio 0.8 L Procalcitonin 0.33 Intake & Output: Intake & Output 08/31/18 09/01/18 09/01/18 18:59 06:59 18:59 Intake Total 240 Output Total 600 Balance -360 Intake: Oral 240 Output: Urine 600 Urine, Voided 600 Vital Signs: Vital Signs - 24 hr 08/31/18 08/31/18 08/31/18 12:02 14:00 14:35 Temperature 99.2 F Pulse Rate 81 74 74 Respiratory 20 Rate Blood Pressure 136/58 L 176/77 H 176/77 H O2 Sat by Pulse 100 Oximetry 08/31/18 09/01/18 09/01/18 17:59 06:00 10:46 Temperature 98.8 F Pulse Rate 116 H 70 77 Respiratory 18 Rate Blood Pressure 156/77 H 148/77 142/80 O2 Sat by Pulse 97 Oximetry
--- NOTE | 2018-09-01 14:12 | PN ---
DATE: 09/01/2018 SUBJECTIVE: This 63-year-old female was seen at bedside in the presence of her , Joe. Case was reviewed with social sciences lecturer, Cat Ames and nurse, Lary Browning, registered nurse. The patient is out of bed to chair. She has a low-grade temperature and is receiving IV meropenem, dose reduced for her chronic renal failure. PHYSICAL EXAMINATION: VITAL SIGNS: Temperature 98.8, previously 99.2; respirations 18; pulse 70 and blood pressure 142/80 with a pulse ox of 97% room air. HEAD: Normocephalic, atraumatic. EYES: No icterus. EARS: Clear. THROAT: Noninjected. NECK: Supple. HEART: S1, S2. LUNGS: Clear. ABDOMEN: Obese. EXTREMITIES: No edema. SKIN: Without rash. NEUROLOGIC: Intact. PSYCHOLOGIC: Alert. VASCULAR: Legs warm to touch. IMPRESSION: This is a 63-year-old female with urosepsis, history of bilateral ureteral stents in the setting of obstructive uropathy, chronic renal failure stage IV, metastatic uterine cancer stage IV, comorbidities of obesity, hypertension, anemia of chronic disease, iron deficiency anemia, hyperlipidemia, degenerative arthritis and peptic ulcer disease with gastroesophageal reflux disease. PLAN: To continue Cardura; clonidine; Femara; Fergon; Lipitor; Lopressor; IV meropenem, dose reduced for renal failure; Pepcid; Procardia; Tylenol and Zofran. She continues on heart-healthy renal diabetic diet, physical therapy, IV antibiotics and is being scheduled for transitional care rehab transfer when medically stable. All of the above was reviewed with the patient, nursing, case management and social sciences lecturer as well as and Dr. Lloyd. All questions were answered. Luisa Pa MD [facility]
--- NOTE | 2018-09-01 14:30 | CP.PCM.PCO ---
Physician Communication Note - Physician Communication Note Physician Communication Note: Per MD, pt medically cleared for dc to TCU tomorrow 09/02
--- NOTE | 2018-09-01 16:13 | PN ---
DATE: 08/31/2018 SUBJECTIVE: This 63-year-old female was examined at her bedside on the morning of , 08/31/2018, in the presence of her , Joe, and this was reviewed with nurse, Ketty Bill, registered nurse. The patient was admitted with fever and chills and probable urosepsis. Previous hospital stays have shown the patient to have positive ESBL as with the well as Proteus mirabilis sensitive to meropenem. The patient is being followed by Dr. Nilesh Lloyd from Infectious Disease and the patient is currently being treated with IV meropenem 500 mg IV every 24 hours, dose reduced for chronic renal failure. PHYSICAL EXAMINATION: GENERAL: On physical exam, at the present time, the patient was out of bed to chair. VITAL SIGNS: Temperature 99.1, respirations 21, pulse 66, blood pressure 129/58 and pulse ox 99% on room air. HEAD: Normocephalic, atraumatic. EYES: No icterus. EARS: Clear. THROAT: Noninjected. NECK: Supple. HEART: S1, S2. LUNGS: Clear. ABDOMEN: Obese. EXTREMITIES: No edema. SKIN: Without rash. NEUROLOGIC: Intact. PSYCHOLOGIC: Alert. VASCULAR: Legs warm to touch. LABORATORY DATA: White count 5000, hemoglobin 9.8, hematocrit 31.5, platelets 248,000. Sodium 140, K 4.6, chloride 108, bicarb 24, BUN 30, creatinine 2.6. Estimated GFR 18 mL/min. Blood sugar 151, calcium 9.1. Bilirubin 0.2, AST 29, ALT 34, alk phos 77. Procalcitonin level 0.33. IMPRESSION: This is a 63-year-old female with urosepsis status post necessary bilateral ureteral stent replacement to prevent end-stage renal disease in a woman with chronic renal failure stage IV and comorbidities of metastatic uterine cancer stage IV, obesity, hypertension, anemia of chronic disease, iron-deficiency anemia, hyperlipidemia, peptic ulcer disease with gastroesophageal reflux disease and degenerative arthritis. PLAN: To continue Cardura, clonidine, Femara, Fergon, Lipitor, Lopressor, IV meropenem, Pepcid, Procardia, Tylenol and Zofran, heart-healthy renal diabetic diet. The patient is ordered to have blood and urine cultures which are pending. She is receiving nasal O2. Physical therapy with ultimate plans for transfer to transitional care rehab for additional IV antibiotic therapy given her complicated course. Greater than 35 minutes was spent in the care management; review of labs, orders, x-rays and discussion of this patient with co-consultants, Dr. Nilesh Lloyd; nurse, Fly, registered nurse and Gabby Ames from [employer] Luisa Pa MD
--- NOTE | 2018-09-01 18:01 | CP.PCM.PN ---
Subjective - Date & Time of Evaluation Date of Evaluation: 09/01/18 Time of Evaluation: 16:30 - Subjective Subjective: Infectious Disease Follow Up: September 01, 2018 63 yo female with known history of metastatic uterine carcinoma. The patient was brought into [facility] [place] for bilateral urethral stent replacements for her chronic bilateral hydronephrosis. She developed borderline fevers and hypotension while in recovery. She was admitted for evaluation and overnight monitoring. Blood cultures negative. No urine cultures available. Objective - Vital Signs/Intake and Output Vital Signs (last 24 hours): Temp Pulse Resp BP Pulse Ox 98.8 F 63 18 130/63 97 09/01/18 06:00 09/01/18 17:39 09/01/18 06:00 09/01/18 17:39 09/01/18 06:00 Intake and Output: 09/01/18 09/01/18 06:59 18:59 Intake Total 240 Output Total 600 Balance -360 - Medications Medications: Current Medications Acetaminophen (Tylenol 325mg Tab) 650 mg PO Q6H PRN PRN Reason: for temp 101 or above Atorvastatin Calcium (Lipitor) 10 mg PO DIN [facility] Last Admin: 09/01/18 17:39 Dose: 10 mg Clonidine HCl (Catapres) 0.1 mg PO BID [facility] Last Admin: 09/01/18 17:39 Dose: 0.1 mg Doxazosin Mesylate (Cardura) 4 mg PO HS [facility] Last Admin: 08/31/18 22:54 Dose: 4 mg Famotidine (Pepcid) 20 mg PO HS [facility] Last Admin: 08/31/18 22:54 Dose: 20 mg Ferrous Gluconate (Fergon) 324 mg PO DAILY [facility] Last Admin: 09/01/18 10:46 Dose: 324 mg Meropenem/Sodium Chloride (Merrem Iv 500 Mg/Ns 50 Ml) 500 mg in 50 mls @ 100 mls/hr IVPB Q24H [facility]; Protocol Last Admin: 08/31/18 20:42 Dose: 100 mls/hr Letrozole (Femara) 2.5 mg PO DAILY [facility] Last Admin: 09/01/18 11:25 Dose: 2.5 mg Metoprolol Tartrate (Lopressor) 50 mg PO BID [facility] Last Admin: 09/01/18 17:38 Dose: 50 mg Nifedipine (Procardia Xl) 90 mg PO DAILY [facility] Last Admin: 09/01/18 10:46 Dose: 90 mg Ondansetron HCl (Zofran Inj) 4 mg IVP Q6H PRN PRN Reason: Nausea/Vomiting Oxycodone/Acetaminophen (Percocet 5/325 Mg Tab) 1 tab PO Q6H PRN PRN Reason: Bladder Spasm Stop: 09/02/18 11:30 - Labs Labs: 08/31/18 11:50 08/31/18 11:50 - Constitutional Appears: Non-toxic, No Acute Distress, Chronically Ill - Head Exam Head Exam: ATRAUMATIC, NORMOCEPHALIC - Eye Exam Eye Exam: EOMI, PERRL Pupil Exam: NORMAL ACCOMODATION, PERRL - ENT Exam ENT Exam: Mucous Membranes Moist, Normal External Ear Exam, TM's Normal Bilaterally - Neck Exam Neck Exam: Full ROM, Normal Inspection - Respiratory Exam Respiratory Exam: Clear to Ausculation Bilateral, NORMAL BREATHING PATTERN. absent: Rales, Rhonchi, Wheezes - Cardiovascular Exam Cardiovascular Exam: REGULAR RHYTHM, RRR, +S1, +S2 - GI/Abdominal Exam GI & Abdominal Exam: Soft, Normal Bowel Sounds. absent: Distended, Tenderness - Extremities Exam Extremities Exam: Full ROM, Normal Inspection - Neurological Exam Neurological Exam: Alert, Awake, CN II-XII Intact, Oriented x3 - Psychiatric Exam Psychiatric exam: Normal Affect, Normal Mood - Skin Skin Exam: Intact, Normal Color Assessment and Plan - Assessment and Plan (Free Text) Assessment: 63 yo female well known to me presenting for bilateral urethral stent exchange. She developed hypotension and borderline fevers in recovery room Hu cultures sent. Prior history of ESBL+ Pseudomonas and E.coli. Continue with Meropenem IV for now. R/O sepsis. R/O UTI given patient's history. No urine cultures from time of procedure. Repeat urinalysis. Supportive care. Thank you for allowing me to participate in the care of the patient, we will follow with you.
[2018-09-01 19:02] LABS: URINE GLUCOSE (UA) NEGATIVE (NEGATIVE)
[2018-09-01 19:03] LABS: URINE APPEARANCE CLOUDY (CLEAR); URINE BILIRUBIN NEGATIVE (NEGATIVE); URINE BLOOD LARGE (NEGATIVE); URINE COLOR YELLOW (YELLOW); URINE LEUKOCYTE ESTERASE MODERATE Leu/uL (NEGATIVE); URINE PROTEIN 30 mg/dL (<30 mg/dL); URINE UROBILINOGEN 0.2 E.U./dL (<1 E.U./dL)
[2018-09-01 19:09] LABS: URINE BACTERIA LARGE /hpf; URINE WBC TNTC /hpf (0-6)
[2018-09-01] MEDS: MEROPENEM 500 MG in NS 500 MG/50 ML BAG IVPB SCH (21:13)
[2018-09-02 06:53] VITALS: BP 160/83; PULSE 65; TEMP 98.9; O2SAT 97
[2018-09-02] MEDS: NIFEdipine 90 mg ER Tab PO SCH (09:16)
[2018-09-02] MEDS ORDERED: Nitroglycerin 2% Ointment Foilpak UD TOP PRN (10:36)
--- NOTE | 2018-09-02 14:52 | CP.PCM.PN ---
Subjective - Date & Time of Evaluation Date of Evaluation: 09/02/18 Time of Evaluation: 11:45 - Subjective Subjective: Infectious Disease Follow Up: September 02, 2018 63 yo female with known history of metastatic uterine carcinoma. The patient was brought into [facility] [place] for bilateral urethral stent replacements for her chronic bilateral hydronephrosis. She developed borderline fevers and hypotension while in recovery. She was admitted for evaluation and overnight monitoring. Blood cultures negative. No urine cultures available. For transfer to [facility] today. Objective - Vital Signs/Intake and Output Vital Signs (last 24 hours): Temp Pulse Resp BP Pulse Ox 98.9 F 65 18 160/83 H 97 09/02/18 07:30 09/02/18 07:30 09/02/18 07:30 09/02/18 07:30 09/02/18 07:30 - Labs Labs: 08/31/18 11:50 08/31/18 11:50 - Constitutional Appears: Non-toxic, No Acute Distress, Chronically Ill - Head Exam Head Exam: ATRAUMATIC, NORMOCEPHALIC - Eye Exam Eye Exam: EOMI, PERRL Pupil Exam: NORMAL ACCOMODATION, PERRL - ENT Exam ENT Exam: Mucous Membranes Moist, Normal External Ear Exam, TM's Normal Bilaterally - Neck Exam Neck Exam: Full ROM, Normal Inspection - Respiratory Exam Respiratory Exam: Clear to Ausculation Bilateral, NORMAL BREATHING PATTERN. absent: Rales, Rhonchi, Wheezes - Cardiovascular Exam Cardiovascular Exam: REGULAR RHYTHM, RRR, +S1, +S2 - GI/Abdominal Exam GI & Abdominal Exam: Soft, Normal Bowel Sounds. absent: Distended, Tenderness - Extremities Exam Extremities Exam: Full ROM, Normal Inspection - Neurological Exam Neurological Exam: Alert, Awake, CN II-XII Intact, Oriented x3 - Psychiatric Exam Psychiatric exam: Normal Affect, Normal Mood - Skin Skin Exam: Intact, Normal Color Assessment and Plan - Assessment and Plan (Free Text) Assessment: 63 yo female well known to me presenting for bilateral urethral stent exchange. She developed hypotension and borderline fevers in recovery room Hu cultures sent. Prior history of ESBL+ Pseudomonas and E.coli. Continue with Meropenem IV for now. R/O sepsis. R/O UTI given patient's history. No urine cultures from time of procedure. Repeat urinalysis. Supportive care. Considering up to 10 days of Meropenem treatment. Thank you for allowing me to participate in the care of the patient, we will follow with you.
--- NOTE | 2018-09-02 15:04 | CP.PCM.PN ---
Subjective - Date & Time of Evaluation Date of Evaluation: 09/02/18 Time of Evaluation: 14:00 - Subjective Subjective: Infectious Disease Follow Up: September 02, 2018 27 yo female presenting with nausea and vomiting. PMHx includes hyperemesis gravidum, currently 9 weeks . She noted blood in her vomit on day of admission. The patient has had multiple visits to [facility] [place] and [facility] [place] for these issues. Tested for Influenza and found to be positive. Started on Tamiflu 09/01/2018. Overall the patient does NOT feel nauseous today. She still reports body aches, fatigue, fevers, and chills. The patient had fevers up to 102.3 F last night. Objective - Vital Signs/Intake and Output Vital Signs (last 24 hours): Temp Pulse Resp BP Pulse Ox 98.9 F 65 18 160/83 H 97 09/02/18 07:30 09/02/18 07:30 09/02/18 07:30 09/02/18 07:30 09/02/18 07:30 - Labs Labs: 08/31/18 11:50 08/31/18 11:50 - Constitutional Appears: Non-toxic, No Acute Distress - Head Exam Head Exam: ATRAUMATIC, NORMOCEPHALIC - Eye Exam Eye Exam: EOMI, PERRL Pupil Exam: NORMAL ACCOMODATION, PERRL - ENT Exam ENT Exam: Mucous Membranes Moist, Normal External Ear Exam, TM's Normal Bila terally - Neck Exam Neck Exam: Full ROM, Normal Inspection - Respiratory Exam Respiratory Exam: Clear to Ausculation Bilateral, NORMAL BREATHING PATTERN. absent: Rales, Rhonchi, Wheezes - Cardiovascular Exam Cardiovascular Exam: REGULAR RHYTHM, RRR, +S1, +S2 - GI/Abdominal Exam GI & Abdominal Exam: Soft, Normal Bowel Sounds. absent: Distended, Tenderness - Extremities Exam Extremities Exam: Full ROM, Normal Inspection - Neurological Exam Neurological Exam: Alert, Awake, CN II-XII Intact, Oriented x3 - Psychiatric Exam Psychiatric exam: Normal Affect, Normal Mood - Skin Skin Exam: Intact, Normal Color Assessment and Plan - Assessment and Plan (Free Text) Assessment: 27 yo female who is currently in her 9th week with known hyperemesis gravidum, epigastric pain, questionable UTI. Started on Rocephin for antibiotic care. Leukocytosis up to 19.7 but afebrile. WBC did improved to 8.9. Supportive care. Urine cultures negative. Most of the patient's symptoms are more likely due to her hyperemesis gravidum. The patient was found to have positive Influenza. Started on Tamiflu 09/01/2018. Feeling better compared to yesterday. Thank you for allowing me participate in the care of the patient, we will follow with you.
--- NOTE | 2018-09-02 16:46 | DS ---
FINAL DIAGNOSES: Urosepsis, stage IV metastatic uterine cancer, chronic hypertension, anemia of chronic disease, iron-deficiency anemia, hyperlipidemia, peptic ulcer disease with gastroesophageal reflux disease, obesity and degenerative arthritis. DISPOSITION: Transitional Care Rehab. DISCHARGE MEDICATIONS: Cardura 4 mg p.o. at bedtime, clonidine 0.1 mg p.o. b.i.d., Femara 2.5 mg p.o. daily, ferrous gluconate 324 mg p.o. daily, Lipitor 10 mg p.o. at dinner time, Lopressor 50 mg p.o. b.i.d., meropenem 500 mg IV every 24 hours, nitroglycerin 1 inch to chest wall every 4 hours p.r.n. accelerated hypertension if systolic blood pressure greater than 160 or diastolic blood pressure greater than 100, Pepcid 20 mg p.o. at bedtime, Procardia XL 90 mg p.o. daily, Tylenol 650 p.o. every 6 hours p.r.n. pain or temperature greater than 101, Zofran 4 mg IV every 6 hours p.r.n. nausea, vomiting. CONSULTANTS: Dr. Nilesh Lloyd from Infectious Disease, Dr. Yadiel Weibnerg from Urology. SUMMARY: This 63-year-old female was admitted after having bilateral ureteral stents replaced and showing signs and symptoms of urosepsis. The patient was admitted, fully cultured, started on parenteral meropenem because of a history of ESBL and Proteus mirabilis in her past. Urine cultures were not obtained and at the time of discharge, her temperature was 98.9, respirations 18, pulse 65 and blood pressure 160/83 with a pulse ox of 97% on room air. White count 5000, hemoglobin 9.8, hematocrit 31.5, platelets 248,000. Sodium 140, K 4.6, chloride 108, bicarb 24, BUN 30, creatinine 2.6, random blood sugar 151. Procalcitonin level was 0.33. The patient is discharged to Transitional Care Rehab where she will continue on IV antibiotics under the direction of Dr. Nilesh Lloyd and will continue all medication as outlined, which I did review with nursing staff in detail as well as at bedside. Greater than 35 minutes was spent in the discharge management of this patient today. All questions were answered. Luisa Pa MD [facility] # [id number]
== END 2018-09-02 14:08 | DRG 661 ==
LOC: SDS 06:06 → 5RSO 18:48
PROVIDERS: ADMIT Urology; ATTEND Urology
PROC: 0TP98DZ Removal of Intraluminal Device from Ureter, Via Natural or Artificial Opening Endoscopic (ICD-10-PCS; 2018-08-30)
PROC: 0TP98DZ Removal of Intraluminal Device from Ureter, Via Natural or Artificial Opening Endoscopic (ICD-10-PCS; 2018-08-30)
PROC: BT141ZZ Fluoroscopy of Kidneys, Ureters and Bladder using Low Osmolar Contrast (ICD-10-PCS; 2018-08-30)
PROC: 0T788DZ Dilation of Bilateral Ureters with Intraluminal Device, Via Natural or Artificial Opening Endoscopic (ICD-10-PCS; principal; 2018-08-30 07:30)
DX: N13.30 Unspecified hydronephrosis (principal); C55 Malignant neoplasm of uterus, part unspecified; N18.4 Chronic kidney disease, stage 4 (severe); R50.82 Postprocedural fever; I95.9 Hypotension, unspecified; I12.9 Hypertensive chronic kidney disease with stage 1 through stage 4 chronic kidney disease, or unspecified chronic kidney disease; D50.9 Iron deficiency anemia, unspecified; J44.9 Chronic obstructive pulmonary disease, unspecified; E66.01 Morbid (severe) obesity due to excess calories; Z68.37 Body mass index [BMI] 37.0-37.9, adult; Z87.440 Personal history of urinary (tract) infections; D63.8 Anemia in other chronic diseases classified elsewhere; E66.9 Obesity, unspecified; E78.5 Hyperlipidemia, unspecified; J11.1 Influenza due to unidentified influenza virus with other respiratory manifestations; K21.9 Gastro-esophageal reflux disease without esophagitis; Z87.11 Personal history of peptic ulcer disease; M19.90 Unspecified osteoarthritis, unspecified site; Z86.19 Personal history of other infectious and parasitic diseases

== ENCOUNTER 2018-09-02 14:15 | Inpatient (IN) | payer OTHER, BC ==
[2018-09-02 14:23] VITALS: BMI 37.1
[2018-09-02] MEDS ORDERED: Oxycodone/Acetaminophen 5/325 mg Tab PO PRN (14:34)
[2018-09-02] MEDS ORDERED: Pneumococcal 23-Valent Vaccine IM ONE (20:04)
[2018-09-02] MEDS ORDERED: Influenza Vaccine 60 mcg/0.5 mL SYR (4YR UP) IM ONE (20:04)
[2018-09-02] MEDS ORDERED: POLYETHYLENE GLYCOL 3350 17 GM/Dose PACKET PO ONE (20:32)
[2018-09-02] MEDS: MEROPENEM 500 MG in NS 500 MG/50 ML BAG IVPB SCH (21:41)
[2018-09-03] MEDS: NIFEdipine 90 mg ER Tab PO SCH (09:19)
--- NOTE | 2018-09-03 16:05 | RAD ---
Date of service: 09/03/2018 HISTORY: Urinary incontinence COMPARISON: None available. FINDINGS: BOWEL: Normal bowel gas pattern. Splenic arterial calcification noted in left upper quadrant. Bilateral ureteral stents are noted. There is a 4-5 mm rounded calcification immediately adjacent to the distal left ureteral stent. This may represent a ureteral calculus or a superimposed pelvic phlebolith. No other significant abnormal intra-abdominal calcifications are identified. BONES: Normal. OTHER FINDINGS: None. IMPRESSION: Bilateral ureteral stents. Questionable distal left ureteral calculus versus phlebolith.
--- NOTE | 2018-09-03 17:46 | CP.PCM.CON ---
History of Present Illness - History of Present Illness History of Present Illness: Infectious Disease Consultation: September 03, 2018 63 yo female with known history of metastatic uterine carcinoma. The [place] [facility] for her chronic bilateral hydronephrosis. She developed borderline fevers and hypotension while in recovery. She was admitted for evaluation and overnight monitoring. Blood cultures negative. No urine cultures available. Transferred to [facility]. On Meropenem. PMHx: Uterine Carcinoma with metastatic disease, Obesity, hypertension, anemia, hyperlipidemia, GERDs, bilateral hydronephrosis with replaced bilateral urethral stents, chronic renal disease stage III, degenerative arthritis, and COPD PSHx: Bilateral urethral stents Allergies: NKDA Social Hx: No tobacco, no EtOH, or illicit drug use Active Medications Acetaminophen (Tylenol 325mg Tab) 650 mg PO Q6H PRN PRN Reason: temp above 101 Last Admin: 09/03/18 16:30 Dose: 650 mg Atorvastatin Calcium (Lipitor) 10 mg PO 1700 [facility] Last Admin: 09/02/18 17:24 Dose: 10 mg Clonidine HCl (Catapres) 0.1 mg PO BID [facility] Last Admin: 09/03/18 16:25 Dose: Not Given Doxazosin Mesylate (Cardura) 4 mg PO HS [facility] Last Admin: 09/02/18 21:40 Dose: 4 mg Famotidine (Pepcid) 40 mg PO HS [facility] Last Admin: 09/02/18 21:41 Dose: 40 mg Ferrous Gluconate (Fergon) 324 mg PO DAILY [facility] Last Admin: 09/03/18 09:19 Dose: 324 mg Meropenem/Sodium Chloride (Merrem Iv 500 Mg/Ns 50 Ml) 500 mg in 50 mls @ 100 mls/hr IVPB Q24H [facility]; Protocol Last Admin: 09/02/18 21:41 Dose: 100 mls/hr Letrozole (Femara) 2.5 mg PO DAILY [facility] Last Admin: 09/03/18 09:24 Dose: 2.5 mg Metoprolol Tartrate (Lopressor) 50 mg PO BID [facility] Last Admin: 09/03/18 09:20 Dose: 50 mg Nifedipine (Procardia Xl) 90 mg PO DAILY [facility] Last Admin: 09/03/18 09:19 Dose: 90 mg Nitroglycerin (Nitro-Bid 2% Oint) 1 ea TOP Q4 PRN PRN Reason: high pressure above 160 Ondansetron HCl (Zofran Inj) 4 mg IVP Q6H PRN PRN Reason: Nausea/Vomiting Oxycodone/Acetaminophen (Percocet 5/325 Mg Tab) 1 tab PO Q6H PRN PRN Reason: Bladder Spasm Stop: 09/05/18 14:35 Family Hx: None given ROS: Patient stating fever. No headaches, dizziness, chest pain, abdominal pain, melena, hematuria, hematemesis, hematochezia, depression, anxiety Past Patient History - Infectious Disease Hx of Infectious Diseases: ESL, VRE - Past Social History Smoking Status: Never Smoked - CARDIAC Hx Hypertension: Yes - PULMONARY Hx Chronic Obstructive Pulmonary Disease (COPD): Yes - NEUROLOGICAL Hx Neurological Disorder: No - HEENT Hx HEENT Problems: Yes (uses reading glasses) - RENAL Hx Renal Failure: Yes (chronic stg 3) - ENDOCRINE/METABOLIC Hx Endocrine Disorders: No - HEMATOLOGICAL/ONCOLOGICAL Hx Cancer: Yes - INTEGUMENTARY Hx Dermatological Problems: Yes - MUSCULOSKELETAL/RHEUMATOLOGICAL Hx Falls: Yes (past) - GASTROINTESTINAL Hx Gastrointestinal Disorders: Yes (PUD,GERD) - GENITOURINARY/GYNECOLOGICAL Hx Genitourinary Disorders: Yes (URINARY RETENTION,BILATERAL HYDRONEPHROISIS,UTI,JORGITO.URETERAL STNET REPLACED) Hx Reproductive Disorders: No - PSYCHIATRIC Hx Emotional Abuse: No Hx Physical Abuse: No - SURGICAL HISTORY Hx Surgeries: Yes - ANESTHESIA Hx Anesthesia Reactions: No Hx Malignant Hyperthermia: No Meds Allergies/Adverse Reactions: Allergies Allergy/AdvReac Type Severity Reaction Status Date / Time No Known Allergies Allergy Verified 09/02/18 18:11 - Medications Medications: Current Medications Acetaminophen (Tylenol 325mg Tab) 650 mg PO Q6H PRN PRN Reason: temp above 101 Last Admin: 09/03/18 16:30 Dose: 650 mg Atorvastatin Calcium (Lipitor) 10 mg PO 1700 [facility] Last Admin: 09/02/18 17:24 Dose: 10 mg Clonidine HCl (Catapres) 0.1 mg PO BID [facility] Last Admin: 09/03/18 16:25 Dose: Not Given Doxazosin Mesylate (Cardura) 4 mg PO [facility] Last Admin: 09/02/18 21:40 Dose: 4 mg Famotidine (Pepcid) 40 mg PO [facility] Last Admin: 09/02/18 21:41 Dose: 40 mg Ferrous Gluconate (Fergon) 324 mg PO DAILY [facility] Last Admin: 09/03/18 09:19 Dose: 324 mg Meropenem/Sodium Chloride (Merrem Iv 500 Mg/Ns 50 Ml) 500 mg in 50 mls @ 100 mls/hr IVPB Q24H [facility]; Protocol Last Admin: 09/02/18 21:41 Dose: 100 mls/hr Letrozole (Femara) 2.5 mg PO DAILY [facility] Last Admin: 09/03/18 09:24 Dose: 2.5 mg Metoprolol Tartrate (Lopressor) 50 mg PO BID [facility] Last Admin: 09/03/18 09:20 Dose: 50 mg Nifedipine (Procardia Xl) 90 mg PO DAILY [facility] Last Admin: 09/03/18 09:19 Dose: 90 mg Nitroglycerin (Nitro-Bid 2% Oint) 1 ea TOP Q4 PRN PRN Reason: high pressure above 160 Ondansetron HCl (Zofran Inj) 4 mg IVP Q6H PRN PRN Reason: Nausea/Vomiting Oxycodone/Acetaminophen (Percocet 5/325 Mg Tab) 1 tab PO Q6H PRN PRN Reason: Bladder Spasm Stop: 09/05/18 14:35 Physical Exam - Constitutional Appears: Non-toxic, No Acute Distress, Chronically Ill - Head Exam Head Exam: ATRAUMATIC, NORMOCEPHALIC - Eye Exam Eye Exam: EOMI, PERRL Pupil Exam: NORMAL ACCOMODATION, PERRL - ENT Exam ENT Exam: Mucous Membranes Moist, Normal External Ear Exam, TM's Normal Bilaterally - Neck Exam Neck exam: Positive for: Full Rom, Normal Inspection - Respiratory Exam Respiratory Exam: Clear to Auscultation Bilateral, NORMAL BREATHING PATTERN. absent: Rales, Rhonchi, Wheezes - Cardiovascular Exam Cardiovascular Exam: REGULAR RHYTHM, RRR, +S1, +S2 - GI/Abdominal Exam GI & Abdominal Exam: Normal Bowel Sounds, Soft. absent: Distended, Tenderness - Extremities Exam Extremities exam: Positive for: full ROM, normal inspection - Neurological Exam Neurological exam: Alert, CN II-XII Intact, Oriented x3 - Psychiatric Exam Psychiatric exam: Normal Affect, Normal Mood - Skin Skin Exam: Intact, Normal Color Results - Vital Signs Recent Vital Signs: Last Vital Signs Temp 98.5 F 09/02/18 19:49 Pulse 65 09/03/18 10:00 Resp 20 09/02/18 19:49 BP 158/77 H 09/03/18 10:00 Pulse Ox Assessment & Plan - Assessment and Plan (Free Text) Assessment: 63 yo female well known to me presenting for bilateral urethral stent exchange. She developed hypotension and borderline fevers in recovery room Hu cultures sent. Prior history of ESBL+ Pseudomonas and E.coli. Will continue with Meropenem IV for now. R/O sepsis. R/O UTI given patient's history. No more than ten days of treatment. On day 4 now. Supportive care. Thank you for allowing me to participate in the care of the patient, we will follow with you.
--- NOTE | 2018-09-03 18:28 | US ---
Date of service: 09/03/2018 PROCEDURE: Ultrasound urinary bladder HISTORY: Urine incontinence COMPARISON: Not available TECHNIQUE: Transabdominal FINDINGS: The distended urinary bladder measures 268.8 cc. The bladder wall is thin and smooth. There is no intraluminal mass. Ureteral jets could not be demonstrated. A ureteral stent is identified on the left side. The postvoid residual within the urinary bladder is 58.8 cc. IMPRESSION: 58.8 cc postvoid residual. Left ureteral stent.
--- NOTE | 2018-09-03 21:08 | HP ---
DATE OF EXAM: 09/03/2018 HISTORY OF PRESENT ILLNESS: This 63-year-old female was admitted to the Transitional Care Unit at the [facility] for continued IV antibiotic therapy in the setting of urosepsis. She is status post a bilateral ureteral stent replacement at [facility] under the direction of Dr. Yadiel Weinberg. She has, chronic renal failure stage IV secondary to chronic hydronephrosis secondary to metastatic stage IV uterine cancer. The patient was admitted with fevers post bilateral ureteral stent replacement and is being treated preemptively with IV meropenem because of history of ESBL and Proteus mirabilis, urosepsis in her past on laboratory review. FAMILY HISTORY: Noncontributory. SOCIAL HISTORY: She is a nondrinker, nonsmoker, non IV drug misuser. She is retired homemaker. ALLERGIES: NO KNOWN ALLERGIES TO MEDICATION. REVIEW OF SYSTEMS: CONSTITUTIONAL REVIEW: She was admitted with fever and chills. HEAD REVIEW: No headache or seizure. EYE REVIEW: No change in visual acuity. EAR REVIEW: No hearing loss. THROAT REVIEW: No swallowing difficulty. NECK REVIEW: No stiffness. CARDIAC REVIEW: Stable, chronic hypertension. PULMONARY: No cough. No hemoptysis. GI: Peptic ulcer disease with gastroesophageal reflux disease. : As per HPI. VASCULAR: No claudication. PSYCHOLOGICAL: No depression. NEUROLOGICAL: No knowledge of stroke. ENDOCRINOLOGICAL: She has hyperlipidemia. PHYSICAL EXAMINATION: VITAL SIGNS: temperature 98.5, respirations 20, pulse 65 and blood pressure 145/72 with pulse ox of 96%. HEENT: Head is normocephalic, atraumatic. Eyes: No icterus. Ears: Clear. Throat: Noninjected. NECK: Supple. CARDIOPULMONARY: Regular S1, S2. LUNGS: Clear to auscultation. ABDOMEN: Obese, nontender. No palpable organomegaly. No rebound, no guarding. No tenderness. EXTREMITIES: No edema. SKIN: Without rash. NEUROLOGICAL: Deconditioned, but intact. VASCULAR: Legs warm to touch. PSYCHOLOGICAL: Alert and oriented x3. IMPRESSION AND PLAN: This 63-year-old female with urosepsis. Metastatic stage IV uterine cancer, history of chronic renal failure stage IV, bilateral hydronephrosis requiring chronic stent and stent changes every 3 months with comorbidities of chronic hypertension, anemia of chronic disease, iron-deficiency anemia, hyperlipidemia, obesity, peptic ulcer disease with gastroesophageal reflux disease, degenerative arthritis, now complaining of intermittent urinary incontinence. The plan was discussed with nursing will be to continue Cardura, clonidine, Femara, ferrous gluconate, Lipitor, Lopressor, IV meropenem, MiraLax, nitroglycerin p.r.n. for accelerated hypertension, Pepcid, Procardia XL, Tylenol and Zofran. She is scheduled to have bladder ultrasound because of urinary incontinence. She is wearing nasal O2. She continues on isolation precautions. She is scheduled for physical and occupational therapy and will have repeat basic metabolic panel and CBC in the a.m. Greater than 35 minutes was spent in the care management, review of labs, orders, outlining of x-rays and medication and discussion of this patient with nursing, and Dr. Yadiel Weinberg as well as her at bedside. All questions were answered. Luisa Pa MD MTDD
[2018-09-03] MEDS: MEROPENEM 500 MG in NS 500 MG/50 ML BAG IVPB SCH (21:54)
[2018-09-04 07:07] LABS: HEMOGLOBIN 9.5 g/dL (12.0-16.0); MEAN CELL VOLUME 98.4 fl (80.0-105.0); MEAN CORPUSCULAR HEMOGLOBIN 29.9 pg (25.0-35.0); MEAN CORPUSCULAR HGB CONC 30.4 g/dl (31.0-37.0); MEAN PLATELET VOLUME 8.5 fl (7.0-11.0); RBC 3.18 10^6/uL (3.5-6.1); RED CELL DISTRIBUTION WIDTH 13.7 % (11.5-14.5); WHITE BLOOD COUNT 5.3 10^3/uL (4.5-11.0)
[2018-09-04 07:24] LABS: CALCIUM 8.8 mg/dL (8.4-10.5)
[2018-09-04] MEDS: NIFEdipine 90 mg ER Tab PO SCH (10:00)
--- NOTE | 2018-09-04 16:38 | PN ---
DATE: 09/04/2018 SUBJECTIVE: This 63-year-old female was examined at her bedside in the presence of nursing and her , Joe. The patient was admitted with urosepsis, fever and chills and is recently status post bilateral ureteral stent replacement in the setting of bilateral hydronephrosis secondary to chronic stage IV metastatic uterine cancer and chronic renal failure stage IV. Today the patient denied any fever, chills, chest pain or shortness of breath, but does have persistent urinary incontinence. PHYSICAL EXAMINATION: VITAL SIGNS: Temperature is 98.5, respirations 18, pulse 71 and blood pressure 159/64 with a pulse ox of 96% on 2 liters nasal O2. HEENT: Head: Normocephalic, atraumatic. Eyes: No icterus. Ears: Clear. Throat: Noninjected. NECK: Supple. HEART: Regular S1, S2. LUNGS: Clear. ABDOMEN: Obese. EXTREMITIES: No edema. SKIN: Without rash. NEUROLOGICAL: Intact. PSYCHOLOGICAL: Alert. VASCULAR: Legs warm to touch. LABORATORY DATA: White count 5300, hemoglobin 9.5, hematocrit 31.3, platelets wnl. Sodium 141, K 5.5, chloride 111, bicarb 24, BUN 31, creatinine 2.3. Estimated GFR 21 mL per minute, glucose 107, calcium 8.8. Abdominal x-ray was reviewed, it is consistent with bilateral ureteral stents in proper positioning. Bladder ultrasound was reviewed. It showed a postvoid residual of 58.8 mL. Her bladder on ultrasound was thin and smooth. There were no intramural masses, ureteral stents were identified. IMPRESSION: This is a 63-year-old female with history of urosepsis, previous history of Proteus mirabilis and extended spectrum beta-lactamases on previous urine cultures, now receiving IV meropenem and comorbidities of obesity, metastatic uterine cancer stage IV, history of chronic bilateral ureteral stents which are replaced approximately every 3 months because of bilateral hydronephrosis and chronic renal failure stage IV, in an attempt to prevent this patient from needing hemodialysis with comorbidities of hypertension, iron-deficiency anemia, anemia of chronic disease, hyperlipidemia, peptic ulcer disease with gastroesophageal reflux disease and degenerative arthritis. PLAN: The plan at present is to continue Cardura, clonidine, Femara, Fergon, iron supplement, Lipitor, Lopressor, IV meropenem, Pepcid, Procardia, Tylenol p.r.n. and Zofran. The patient is receiving physical and occupational therapy. I will discuss with Dr. Weinberg further treatment of her urinary incontinence with considerations for Flomax or Ditropan. She continues on nasal O2, isolation precautions, physical and occupational therapy with ultimate plan for discharge to home when medically stable. This case was reviewed in detail with nurse Lisa Hunter - registered nurse, the patient, her and co-consultants from Urology and Infectious Disease as well as Physical Therapy. All questions were answered. Greater than 30 minutes was spent in the care of this patient today. Luisa Pa MD MTDD
--- NOTE | 2018-09-04 19:36 | CP.PCM.PN ---
Subjective - Date & Time of Evaluation Date of Evaluation: 09/04/18 Time of Evaluation: 17:30 - Subjective Subjective: Infectious Disease Follow Up: September 04, 2018 63 yo female with known history of metastatic uterine carcinoma. The patient was [place] [facility] [place]ral stent replacements for her chronic bilateral hydronephrosis. She developed borderline fevers and hypotension while in recovery. She was admitted for evaluation and overnight monitoring. Blood cultures negative. No urine cultures available. Transferred to [facility]. On Meropenem. Objective - Vital Signs/Intake and Output Vital Signs (last 24 hours): Temp Pulse Resp BP Pulse Ox 98.5 F 68 20 157/72 H 100 09/02/18 19:49 09/04/18 17:39 09/02/18 19:49 09/04/18 17:39 09/04/18 17:03 - Medications Medications: Current Medications Acetaminophen (Tylenol 325mg Tab) 650 mg PO Q6H PRN PRN Reason: temp above 101 Last Admin: 09/03/18 16:30 Dose: 650 mg Acetaminophen (Tylenol 325mg Tab) 650 mg PO Q6H PRN PRN Reason: Pain, Mild (1-3) Last Admin: 09/04/18 09:50 Dose: 650 mg Atorvastatin Calcium (Lipitor) 10 mg PO 1700 [facility] Last Admin: 09/04/18 17:38 Dose: 10 mg Clonidine HCl (Catapres) 0.1 mg PO BID [facility] Last Admin: 09/04/18 17:38 Dose: 0.1 mg Doxazosin Mesylate (Cardura) 4 mg PO [facility] Last Admin: 09/03/18 21:54 Dose: 4 mg Famotidine (Pepcid) 40 mg PO HS [facility] Last Admin: 09/03/18 21:54 Dose: 40 mg Ferrous Gluconate (Fergon) 324 mg PO DAILY [facility] Last Admin: 09/04/18 09:59 Dose: 324 mg Meropenem/Sodium Chloride (Merrem Iv 500 Mg/Ns 50 Ml) 500 mg in 50 mls @ 100 mls/hr IVPB Q24H [facility]; Protocol Last Admin: 09/03/18 21:54 Dose: 100 mls/hr Letrozole (Femara) 2.5 mg PO DAILY [facility] Last Admin: 09/04/18 09:58 Dose: 2.5 mg Metoprolol Tartrate (Lopressor) 50 mg PO BID [facility] Last Admin: 09/04/18 17:39 Dose: 50 mg Nifedipine (Procardia Xl) 90 mg PO DAILY [facility] Last Admin: 09/04/18 10:00 Dose: 90 mg Nitroglycerin (Nitro-Bid 2% Oint) 1 ea TOP Q4 PRN PRN Reason: high pressure above 160 Ondansetron HCl (Zofran Inj) 4 mg IVP Q6H PRN PRN Reason: Nausea/Vomiting Oxycodone/Acetaminophen (Percocet 5/325 Mg Tab) 1 tab PO Q6H PRN PRN Reason: Bladder Spasm Stop: 09/05/18 14:35 - Labs Labs: 09/04/18 06:30 09/04/18 06:30 - Constitutional Appears: Non-toxic, No Acute Distress, Chronically Ill - Head Exam Head Exam: ATRAUMATIC, NORMOCEPHALIC - Eye Exam Eye Exam: EOMI, PERRL Pupil Exam: NORMAL ACCOMODATION, PERRL - ENT Exam ENT Exam: Mucous Membranes Dry - Neck Exam Neck Exam: Full ROM, Normal Inspection - Respiratory Exam Respiratory Exam: Clear to Ausculation Bilateral, NORMAL BREATHING PATTERN. absent: Rales, Rhonchi, Wheezes - Cardiovascular Exam Cardiovascular Exam: REGULAR RHYTHM, RRR, +S1, +S2 - GI/Abdominal Exam GI & Abdominal Exam: Soft, Normal Bowel Sounds. absent: Distended, Tenderness - Extremities Exam Extremities Exam: Full ROM, Normal Inspection - Neurological Exam Neurological Exam: Alert, Awake, CN II-XII Intact, Oriented x3 - Psychiatric Exam Psychiatric exam: Normal Affect, Normal Mood - Skin Skin Exam: Intact, Normal Color Assessment and Plan - Assessment and Plan (Free Text) Assessment: 63 yo female well known to me presenting for bilateral urethral stent exchange. She developed hypotension and borderline fevers in recovery room Hu cultures sent. Prior history of ESBL+ Pseudomonas and E.coli. Will continue with Meropenem IV for now. R/O sepsis. R/O UTI given patient's history. No more than ten days of treatment. On day 5 now. Supportive care. Thank you for allowing me to participate in the care of the patient, we will follow with you.
[2018-09-04] MEDS: MEROPENEM 500 MG in NS 500 MG/50 ML BAG IVPB SCH (21:51)
[2018-09-05] MEDS: NIFEdipine 90 mg ER Tab PO SCH (10:42)
[2018-09-05 13:01] LABS: IRON 34 ug/dL (45-180)
[2018-09-05 13:10] LABS: % IRON SATURATION 17 % (20-55); TOTAL IRON BINDING CAPACITY 204 ug/dL (265-497)
--- NOTE | 2018-09-05 13:45 | PN ---
DATE: 09/05/2018 SUBJECTIVE: This 63-year-old female was examined at her bedside on the morning of 09/05/2018. Present for this interview was her , Joe, and case was reviewed in detail with nurse, Nena Ingram, registered nurse. The patient is out of bed to chair. She denied any constitutional rigors or chills. She is cooperating with physical therapy and complains of intermittent urine incontinence. PHYSICAL EXAMINATION: VITAL SIGNS: Temperature was 98.5, respirations 16, pulse 63 and blood pressure 165/85, previously 157/72. HEENT: Head: Normocephalic, atraumatic. Eyes: No icterus. Ears: Clear. Throat: Noninjected. NECK: Supple. HEART: S1, S2. LUNGS: Clear. ABDOMEN: Obese, nontender. No palpable organomegaly. No rebound, no tenderness, no guarding. There was no CVA tenderness. EXTREMITIES: No edema. SKIN: Without rash. NEUROLOGIC: Intact. PSYCHOLOGICAL: Alert. VASCULAR: Legs warm to touch. LABORATORY DATA: White count 5300, hemoglobin 9.5, hematocrit 31.3, platelets 304,000. Sodium 141, K 5.5, chloride 111, bicarb 24, BUN 31, creatinine 2.3, random blood sugar 107. IMPRESSION: This is a 63-year-old female with history of urosepsis and previous urine cultures growing extended-spectrum beta-lactamases and Proteus mirabilis, sensitive to meropenem, with comorbidities of obesity, metastatic stage IV uterine cancer, chronic hypertension, urine incontinence, iron-deficiency anemia, anemia of chronic disease, hyperlipidemia, degenerative arthritis, peptic ulcer disease with gastroesophageal reflux disease, chronic renal failure stage IV. PLAN: At present is to continue Tylenol, Procardia XL, Pepcid, nitroglycerin ointment p.r.n. accelerated hypertension, meropenem 500 mg IV every 24 hours, dose reduced for stage IV chronic renal failure, Lopressor 50 mg b.i.d., Lipitor 10 mg p.o. at bedtime. I have started Flomax 0.4 mg p.o. daily, ferrous gluconate 324 mg p.o. daily, Femara 2.5 mg p.o. daily, clonidine 0.1 mg p.o. b.i.d. and Cardura 4 mg p.o. at bedtime. The patient is wearing nasal O2, continues on heart-healthy diet. She continues on isolation, physical therapy and ultimate plan is for discharge to home when medically stable for oncological-gynecological cancer followup with Dr. Kathy Oquendo from the [facility] unit in [place]. Luisa Pa MD MTDD
--- NOTE | 2018-09-05 19:46 | CP.PCM.PN ---
Subjective - Date & Time of Evaluation Date of Evaluation: 09/05/18 Time of Evaluation: 17:45 - Subjective Subjective: Infectious Disease Follow Up: September 05, 2018 63 yo female with known history of metastatic uterine carcinoma. The patient was brought into [facility] for bilateral urethral stent replacements for her chronic bilateral hydronephrosis. She developed borderline fevers and hypotension while in recovery. She was admitted for evaluation and overnight monitoring. Blood cultures negative. No urine cultures available. Transferred to [facility]. On Meropenem given cultures in the past. Objective - Vital Signs/Intake and Output Vital Signs (last 24 hours): Temp Pulse Resp BP Pulse Ox 97.5 F L 73 18 113/70 99 09/05/18 16:00 09/05/18 17:19 09/05/18 16:00 09/05/18 17:19 09/05/18 16:00 - Medications Medications: Current Medications Acetaminophen (Tylenol 325mg Tab) 650 mg PO Q6H PRN PRN Reason: temp above 101 Last Admin: 09/03/18 16:30 Dose: 650 mg Acetaminophen (Tylenol 325mg Tab) 650 mg PO Q6H PRN PRN Reason: Pain, Mild (1-3) Last Admin: 09/05/18 10:43 Dose: 650 mg Atorvastatin Calcium (Lipitor) 10 mg PO 1700 [facility] Last Admin: 09/05/18 17:18 Dose: 10 mg Clonidine HCl (Catapres) 0.1 mg PO BID [facility] Last Admin: 09/05/18 17:19 Dose: 0.1 mg Doxazosin Mesylate (Cardura) 4 mg PO HS [facility] Last Admin: 09/04/18 21:52 Dose: 4 mg Famotidine (Pepcid) 40 mg PO HS [facility] Ferrous Gluconate (Fergon) 324 mg PO DAILY [facility] Last Admin: 09/05/18 10:45 Dose: 324 mg Meropenem/Sodium Chloride (Merrem Iv 500 Mg/Ns 50 Ml) 500 mg in 50 mls @ 100 mls/hr IVPB Q24H [facility]; Protocol Last Admin: 09/04/18 21:51 Dose: 100 mls/hr Letrozole (Femara) 2.5 mg PO DAILY [facility] Last Admin: 09/05/18 10:43 Dose: 2.5 mg Metoprolol Tartrate (Lopressor) 50 mg PO 0800,1800 [facility]; Protocol Last Admin: 09/05/18 17:19 Dose: 50 mg Nifedipine (Procardia Xl) 90 mg PO DAILY [facility] Last Admin: 09/05/18 10:42 Dose: 90 mg Nitroglycerin (Nitro-Bid 2% Oint) 1 ea TOP Q4 PRN PRN Reason: high pressure above 160 Ondansetron HCl (Zofran Inj) 4 mg IVP Q6H PRN PRN Reason: Nausea/Vomiting Tamsulosin HCl (Flomax) 0.4 mg PO 1830 [facility] Last Admin: 09/05/18 17:35 Dose: 0.4 mg - Labs Labs: 09/04/18 06:30 09/04/18 06:30 - Constitutional Appears: Non-toxic, No Acute Distress, Chronically Ill - Head Exam Head Exam: ATRAUMATIC, NORMOCEPHALIC - Eye Exam Eye Exam: EOMI, PERRL Pupil Exam: NORMAL ACCOMODATION, PERRL - ENT Exam ENT Exam: Mucous Membranes Moist - Neck Exam Neck Exam: Full ROM, Normal Inspection - Respiratory Exam Respiratory Exam: Clear to Ausculation Bilateral, NORMAL BREATHING PATTERN. absent: Rales, Rhonchi, Wheezes - Cardiovascular Exam Cardiovascular Exam: REGULAR RHYTHM, RRR, +S1, +S2 - GI/Abdominal Exam GI & Abdominal Exam: Soft, Normal Bowel Sounds. absent: Distended, Tenderness - Extremities Exam Extremities Exam: Full ROM, Normal Inspection - Neurological Exam Neurological Exam: Alert, Awake, CN II-XII Intact, Oriented x3 - Psychiatric Exam Psychiatric exam: Normal Affect, Normal Mood - Skin Skin Exam: Intact, Normal Color Assessment and Plan - Assessment and Plan (Free Text) Assessment: 63 yo female well known to me presenting for bilateral urethral stent exchange. She developed hypotension and borderline fevers in recovery room Hu cultures sent. Unfortunately, no urine cultures are available. Prior history of ESBL+ Pseudomonas and E.coli. Will continue with Meropenem IV for now. R/O sepsis. R/O UTI given patient's history. No more than ten days of treatment. On day 6 now. Supportive care. Thank you for allowing me to participate in the care of the patient, we will follow with you.
[2018-09-05] MEDS: MEROPENEM 500 MG in NS 500 MG/50 ML BAG IVPB SCH (21:16)
[2018-09-05 21:38] LABS: FOLATE 8.1 ng/mL
[2018-09-06] MEDS: Nitroglycerin 2% Ointment Foilpak UD TOP PRN (07:10)
[2018-09-06] MEDS: NIFEdipine 90 mg ER Tab PO SCH (09:55)
--- NOTE | 2018-09-06 16:13 | CP.PCM.PN ---
Subjective - Date & Time of Evaluation Date of Evaluation: 09/06/18 Time of Evaluation: 14:15 - Subjective Subjective: Infectious Disease Follow Up: September 06, 2018 63 yo female with known history of metastatic uterine carcinoma. The patient was [place] [facility] [place]ral stent replacements for her chronic bilateral hydronephrosis. She developed borderline fevers and hypotension while in recovery. She was admitted for evaluation and overnight monitoring. Blood cultures negative. No urine cultures available. Transferred to [facility]. On Meropenem given cultures in the past. No new issues. Objective - Vital Signs/Intake and Output Vital Signs (last 24 hours): Temp Pulse Resp BP Pulse Ox 97.5 F L 64 18 141/70 99 09/05/18 16:00 09/06/18 09:54 09/05/18 16:00 09/06/18 09:54 09/05/18 16:00 - Medications Medications: Current Medications Acetaminophen (Tylenol 325mg Tab) 650 mg PO Q6H PRN PRN Reason: temp above 101 Last Admin: 09/05/18 22:10 Dose: 650 mg Acetaminophen (Tylenol 325mg Tab) 650 mg PO Q6H PRN PRN Reason: Pain, Mild (1-3) Last Admin: 09/06/18 10:00 Dose: 650 mg Atorvastatin Calcium (Lipitor) 10 mg PO 1700 [facility] Last Admin: 09/05/18 17:18 Dose: 10 mg Clonidine HCl (Catapres) 0.2 mg PO BID [facility]; Protocol Doxazosin Mesylate (Cardura) 4 mg PO HS [facility] Last Admin: 09/05/18 21:16 Dose: 4 mg Famotidine (Pepcid) 20 mg PO [facility] Ferrous Gluconate (Fergon) 324 mg PO DAILY [facility] Last Admin: 09/06/18 09:56 Dose: 324 mg Meropenem/Sodium Chloride (Merrem Iv 500 Mg/Ns 50 Ml) 500 mg in 50 mls @ 100 mls/hr IVPB 2200 [facility]; Protocol Stop: 09/09/18 22:29 Letrozole (Femara) 2.5 mg PO DAILY [facility] Last Admin: 09/06/18 09:55 Dose: 2.5 mg Metoprolol Tartrate (Lopressor) 50 mg PO 0800,1800 [facility]; Protocol Last Admin: 09/06/18 07:42 Dose: 50 mg Nifedipine (Procardia Xl) 90 mg PO DAILY [facility] Last Admin: 09/06/18 09:55 Dose: 90 mg Nitroglycerin (Nitro-Bid 2% Oint) 1 ea TOP Q4 PRN PRN Reason: high pressure above 160 Last Admin: 09/06/18 07:10 Dose: 1 ea Ondansetron HCl (Zofran Inj) 4 mg IVP Q6H PRN PRN Reason: Nausea/Vomiting Tamsulosin HCl (Flomax) 0.4 mg PO 1830 [facility] Last Admin: 09/05/18 17:35 Dose: 0.4 mg - Labs Labs: 09/04/18 06:30 09/06/18 11:45 - Constitutional Appears: Non-toxic, No Acute Distress, Chronically Ill - Head Exam Head Exam: ATRAUMATIC, NORMOCEPHALIC - Eye Exam Eye Exam: EOMI, PERRL Pupil Exam: NORMAL ACCOMODATION, PERRL - ENT Exam ENT Exam: Mucous Membranes Moist, Normal External Ear Exam, TM's Normal Bilaterally - Neck Exam Neck Exam: Full ROM, Normal Inspection - Respiratory Exam Respiratory Exam: Clear to Ausculation Bilateral, NORMAL BREATHING PATTERN. absent: Rales, Rhonchi, Wheezes - Cardiovascular Exam Cardiovascular Exam: REGULAR RHYTHM, RRR, +S1, +S2 - GI/Abdominal Exam GI & Abdominal Exam: Soft, Normal Bowel Sounds. absent: Distended, Tenderness - Extremities Exam Extremities Exam: Full ROM, Normal Inspection - Neurological Exam Neurological Exam: Alert, Awake, CN II-XII Intact, Oriented x3 - Psychiatric Exam Psychiatric exam: Normal Affect, Normal Mood - Skin Skin Exam: Intact, Normal Color Assessment and Plan - Assessment and Plan (Free Text) Assessment: 63 yo female well known to me presenting for bilateral urethral stent exchange. She developed hypotension and borderline fevers in recovery room Hu cultures sent. Unfortunately, no urine cultures are available. Prior history of ESBL+ Pseudomonas and E.coli. Will continue with Meropenem IV for now. R/O sepsis. R/O UTI given patient's history. No more than ten days of treatment. On day 7 now. Supportive care. Thank you for allowing me to participate in the care of the patient, we will follow with you.
[2018-09-06] MEDS: MEROPENEM 500 MG in NS 500 MG/50 ML BAG IVPB SCH (21:33)
[2018-09-07] MEDS: Nitroglycerin 2% Ointment Foilpak UD TOP PRN (06:58)
--- NOTE | 2018-09-07 08:07 | PN ---
DATE: 09/06/2018 SUBJECTIVE: This 63-year-old female was examined at her bedside in the presence of her and nurse, Nena Ingram, registered nurse. The patient is improving slowly every day with reconditioning and physical and occupational therapy. She continues on IV meropenem for urosepsis and previous history of Proteus mirabilis and ESBL. At present, she denied any fever, chills, chest pain or shortness of breath, but had an episode of accelerated hypertension last evening where her blood pressure was noted to be 185/88 for which she received nitro paste 1 inch to chest wall additionally. As a result, I have discussed this with the patient, and nursing and medication will be adjusted. PHYSICAL EXAMINATION: VITAL SIGNS: Temperature was 97.5, respirations 18, pulse 60 and blood pressure 160/78 with a pulse ox of 99% room air. HEENT: Head normocephalic, atraumatic. Eyes no icterus. Ears: Clear. Throat: Noninjected. NECK: Supple. HEART: Regular S1, S2. No pathological rubs, murmurs or gallops. LUNGS: Clear. ABDOMEN: Obese. EXTREMITIES: No edema. SKIN: Without rash. NEUROLOGICAL: Intact, but deconditioned. VASCULAR: Legs warm to touch. PSYCHOLOGICAL: Alert and oriented x3. LABORATORY DATA: White count 5300, hemoglobin 9.5, hematocrit 31.3, platelets 030055. Sodium 141, K 5.5, chloride 111, bicarb 24, BUN 31, creatinine 2.3, random blood sugar 107. Iron 34, TIBC 204, percent saturation 17 low, ferritin 302. Vitamin B12 317 and folic acid 8.1. IMPRESSION: A 63-year-old female with urosepsis and history of Proteus mirabilis and Extended spectrum beta-lactamases in the past and urinary tract infections with comorbidities of metastatic stage IV uterine cancer with bilateral hydronephrosis requiring chronic bilateral ureteral stents and chronic renal failure stage IV, anemia of chronic disease, iron-deficiency anemia, chronic hypertension, now uncontrolled; urine incontinence; hyperlipidemia; peptic ulcer disease with gastroesophageal reflux disease; degenerative arthritis; and history of intermittent gout. PLAN: The plan at present is to continue Cardura 4 mg p.o. h.s., clonidine will be increased to 0.2 mg p.o. b.i.d. She continues on Femara 2.5 mg p.o. daily, Fergon 324 mg p.o. daily, Flomax 0.4 mg p.o. daily, Lipitor 10 mg p.o. daily, Lopressor 50 mg p.o. b.i.d., meropenem 500 mg IV every 24 hours, nitroglycerin 1 inch to chest wall every 4 hours p.r.n. accelerated hypertension if systolic blood pressure greater than 160 or diastolic blood pressure greater than 100. Pepcid 40 mg p.o. h.s., Procardia XL 90 mg p.o. daily, Zofran 4 mg IV every 6 hours p.r.n. nausea and vomiting, and Tylenol 650 p.o. every 6 hours p.r.n. pain or temperature greater than 101. The patient will have a repeat potassium level and I have discussed with nurse Ingram that if the potassium level is greater than 5.5, she will be given one dose of Kayexalate 30 mg for this finding. She continues on a renal heart-healthy diabetic diet and 2 liters nasal O2. She remains on isolation precautions and is receiving daily physical therapy for reconditioning and gait training. Greater than 30 minutes was spent in the care management, review of labs, orders and x-rays and adjustment of medication and orders for this patient today. All questions were answered. Luisa Pa MD MTDD
[2018-09-07] MEDS: NIFEdipine 90 mg ER Tab PO SCH (10:06)
--- NOTE | 2018-09-07 12:47 | PN ---
DATE: 09/07/2018 SUBJECTIVE: This is a 63-year-old female who remains hospitalized, receiving IV meropenem in the setting of urosepsis and multiple comorbidities including bilateral ureteral stents, which are necessary because of bilateral hydronephrosis, chronic renal stage IV and metastatic stage IV uterine cancer. The patient denied any fever, chills, chest pain, or shortness of breath and is cooperating with physical therapy. PHYSICAL EXAMINATION: VITAL SIGNS: Temperature was 97.6, respirations 18, pulse 63 and blood pressure 129/82 with a pulse ox of 99%. HEENT: Head is normocephalic, atraumatic. Eyes; no icterus. Ears; clear. Throat; non-injected. NECK: Supple. HEART: S1, S2. LUNGS: Clear. ABDOMEN: Obese. EXTREMITIES: No edema. SKIN: Without rash. NEUROLOGIC: Intact. PSYCHOLOGIC: Alert. VASCULAR: Legs warm to touch. LABORATORY DATA: White count 5300, hemoglobin 9.5, hematocrit 31.3, platelets 304,000. Sodium 141, K 5.5, chloride 111, bicarb 24, repeat potassium 4.3, BUN 31, creatinine 2.3. Estimated GFR 21 mL per minute. Glucose 107, calcium 8.8. Iron 34, TIBC 204, percent saturation 17, ferritin 302. B12 317 and folic acid 8.1. IMPRESSION: This is a 63-year-old female with urosepsis, history of extended spectrum beta-lactamases and Proteus mirabilis, urosepsis in the past and comorbidities of metastatic stage IV uterine cancer, hypertension, obesity, anemia of chronic disease, iron-deficiency anemia, urinary incontinence, hyperlipidemia, hypertension, peptic ulcer disease with gastroesophageal reflux disease and degenerative arthritis. PLAN: Continue Cardura, clonidine, which has been adjusted to 0.2 mg p.o. twice a day, Femara, Fergon, Flomax, Lipitor, Lopressor, meropenem 500 mg IV every 24 hours, dose reduced for chronic renal failure stage IV, nitroglycerin ointment to chest wall p.r.n. accelerated hypertension, Pepcid, Procardia, Tylenol and p.r.n. Zofran. The patient is scheduled for physical and occupational therapy. She continues on a renal diet. She remains on isolation and ultimate plan will be for discharge to home when medically cleared by Infectious Disease cisco consultant Dr. Nilesh zhang and upon completion of antibiotics. Greater than 35 minutes was spent in the care management, review of labs, orders and x-rays and discussion of this patient with herself, her , nurse Nena Ingram, registered nurse and physical therapy. All questions were answered. Luisa Pa MD
--- NOTE | 2018-09-07 15:53 | CP.PCM.PN ---
Subjective - Date & Time of Evaluation Date of Evaluation: 09/07/18 Time of Evaluation: 15:00 - Subjective Subjective: Infectious Disease Follow Up: September 07, 2018 63 yo female with known history of metastatic uterine carcinoma. The patient was brought into [facility] for bilateral urethral stent replacements for her chronic bilateral hydronephrosis. She developed borderline fevers and hypotension while in recovery. She was admitted for evaluation and overnight monitoring. Blood cultures negative. No urine cultures available. Transferred to [facility]. On Meropenem given cultures in the past. No new issues. Patient with no complaints at this time. Objective - Vital Signs/Intake and Output Vital Signs (last 24 hours): Temp Pulse Resp BP Pulse Ox 97.6 F 63 18 129/82 99 09/07/18 10:00 09/07/18 10:07 09/07/18 10:00 09/07/18 10:07 09/07/18 10:00 - Medications Medications: Current Medications Acetaminophen (Tylenol 325mg Tab) 650 mg PO Q6H PRN PRN Reason: temp above 101 Last Admin: 09/05/18 22:10 Dose: 650 mg Acetaminophen (Tylenol 325mg Tab) 650 mg PO Q6H PRN PRN Reason: Pain, Mild (1-3) Last Admin: 09/07/18 10:15 Dose: 650 mg Atorvastatin Calcium (Lipitor) 10 mg PO 1700 [facility] Last Admin: 09/06/18 17:13 Dose: 10 mg Clonidine HCl (Catapres) 0.2 mg PO BID [facility]; Protocol Last Admin: 09/07/18 10:07 Dose: 0.2 mg Doxazosin Mesylate (Cardura) 4 mg PO [facility] Last Admin: 09/06/18 21:33 Dose: 4 mg Famotidine (Pepcid) 20 mg PO [facility] Last Admin: 09/06/18 21:33 Dose: 20 mg Ferrous Gluconate (Fergon) 324 mg PO DAILY [facility] Last Admin: 09/07/18 09:19 Dose: 324 mg Meropenem/Sodium Chloride (Merrem Iv 500 Mg/Ns 50 Ml) 500 mg in 50 mls @ 100 mls/hr IVPB 2200 [facility]; Protocol Stop: 09/09/18 22:29 Last Admin: 09/06/18 21:33 Dose: 100 mls/hr Letrozole (Femara) 2.5 mg PO DAILY [facility] Last Admin: 09/07/18 10:08 Dose: 2.5 mg Metoprolol Tartrate (Lopressor) 50 mg PO 0800,1800 [facility]; Protocol Last Admin: 09/07/18 07:57 Dose: 50 mg Nifedipine (Procardia Xl) 90 mg PO DAILY [facility] Last Admin: 09/07/18 10:06 Dose: 90 mg Nitroglycerin (Nitro-Bid 2% Oint) 1 ea TOP Q4 PRN PRN Reason: high pressure above 160 Last Admin: 09/07/18 06:58 Dose: 1 ea Ondansetron HCl (Zofran Inj) 4 mg IVP Q6H PRN PRN Reason: Nausea/Vomiting Tamsulosin HCl (Flomax) 0.4 mg PO 1830 [facility] Last Admin: 09/06/18 17:30 Dose: 0.4 mg - Labs Labs: 09/04/18 06:30 09/06/18 11:45 - Constitutional Appears: Non-toxic, No Acute Distress, Chronically Ill - Head Exam Head Exam: ATRAUMATIC, NORMOCEPHALIC - Eye Exam Eye Exam: EOMI, PERRL Pupil Exam: NORMAL ACCOMODATION, PERRL - ENT Exam ENT Exam: Mucous Membranes Moist, Normal External Ear Exam, TM's Normal Bilaterally - Neck Exam Neck Exam: Full ROM, Normal Inspection - Respiratory Exam Respiratory Exam: Clear to Ausculation Bilateral, NORMAL BREATHING PATTERN. absent: Rales, Rhonchi, Wheezes - Cardiovascular Exam Cardiovascular Exam: REGULAR RHYTHM, RRR, +S1, +S2 - GI/Abdominal Exam GI & Abdominal Exam: Soft, Normal Bowel Sounds. absent: Distended, Tenderness - Extremities Exam Extremities Exam: Full ROM, Normal Inspection - Neurological Exam Neurological Exam: Alert, Awake, CN II-XII Intact, Oriented x3 - Psychiatric Exam Psychiatric exam: Normal Affect, Normal Mood - Skin Skin Exam: Intact, Normal Color Assessment and Plan - Assessment and Plan (Free Text) Assessment: 63 yo female well known to me presenting for bilateral urethral stent exchange. She developed hypotension and borderline fevers in recovery room Hu cultures sent. Unfortunately, no urine cultures are available. Prior history of ESBL+ Pseudomonas and E.coli. Will continue with Meropenem IV for now. R/O sepsis. R/O UTI given patient's history. No more than ten days of treatment. On day 8 now. Supportive care. Thank you for allowing me to participate in the care of the patient, we will follow with you.
[2018-09-07] MEDS: MEROPENEM 500 MG in NS 500 MG/50 ML BAG IVPB SCH (21:18)
[2018-09-08] MEDS: NIFEdipine 90 mg ER Tab PO SCH (10:42)
--- NOTE | 2018-09-08 13:00 | PN ---
DATE: 09/08/2018 SUBJECTIVE: This 63-year-old female was examined at her bedside on the morning of 09/08/2018 and present for interview was nurse, Alicja Garcia, registered nurse and , Joe. The patient is cooperating with physical therapy. She is ambulating with a rolling walker and denied any fever, chills, chest pain or shortness of breath. PHYSICAL EXAMINATION: VITAL SIGNS: Temperature 97.6, respirations 18, pulse 67 and blood pressure 147/76. HEAD: Normocephalic, atraumatic. EYES: No icterus. EARS: Clear. THROAT: Noninjected. NECK: Supple. HEART: S1, S2. LUNGS: Clear. ABDOMEN: Obese. EXTREMITIES: No edema. SKIN: Without rash. NEUROLOGIC: Intact. PSYCHOLOGIC: Alert. VASCULAR: Legs warm to touch. LABORATORY DATA: White count 5300, hemoglobin 9.5, hematocrit 31.3, platelets 304,000. Random blood sugar for was 107, potassium 4.3. Iron saturation percentage 17. B12 of 317. Folic acid 8.1. IMPRESSION AND PLAN: This is a 63-year-old female with urosepsis; history of extended-spectrum beta-lactamases and Proteus mirabilis in the past and comorbidities of metastatic stage IV uterine cancer; chronic hypertension; obesity; iron-deficiency anemia; urinary incontinence, improved on Flomax; history of bilateral hydronephrosis with bilateral ureteral stents and chronic renal failure stage IV; hyperlipidemia; peptic ulcer disease with gastroesophageal reflux disease; degenerative osteoarthritis. The patient will continue on Procardia; Pepcid; nitroglycerin to chest wall for accelerated hypertension, dose reduced; meropenem for chronic renal failure stage IV; Lopressor; Lipitor; Flomax; Fergon; Femara; clonidine and Cardura. She is scheduled for physical therapy for reconditioning and gait training. She is ordered to have nasal O2, heart-healthy diabetic renal diet, isolation precautions and ultimate plan will be for discharge to home and follow up in my office as an outpatient when medically stable. Greater than 35 minutes was spent in the care management, review of labs, orders and x-rays and discussion of this patient with nurse, Radha, her and her physical therapist. All questions were answered. Luisa Pa MD [facility] # [id number]
--- NOTE | 2018-09-08 16:40 | CP.PCM.PN ---
Subjective - Date & Time of Evaluation Date of Evaluation: 09/08/18 Time of Evaluation: 14:45 - Subjective Subjective: Infectious Disease Follow Up: September 08, 2018 63 yo female with known history of metastatic uterine carcinoma. The [place] [facility] replacements for her chronic bilateral hydronephrosis. She developed borderline fevers and hypotension while in recovery. She was admitted for evaluation and overnight monitoring. Blood cultures negative. No urine cultures available. Transferred to [facility] [place]. On Meropenem given cultures in the past. No new issues. Patient with no complaints at this time. Objective - Vital Signs/Intake and Output Vital Signs (last 24 hours): Temp Pulse Resp BP Pulse Ox 97.6 F 67 18 159/83 H 99 09/07/18 16:00 09/07/18 17:45 09/07/18 16:00 09/08/18 10:41 09/07/18 16:29 - Medications Medications: Current Medications Acetaminophen (Tylenol 325mg Tab) 650 mg PO Q6H PRN PRN Reason: temp above 101 Last Admin: 09/08/18 10:42 Dose: 650 mg Acetaminophen (Tylenol 325mg Tab) 650 mg PO Q6H PRN PRN Reason: Pain, Mild (1-3) Last Admin: 09/07/18 22:46 Dose: 650 mg Atorvastatin Calcium (Lipitor) 10 mg PO 1700 [facility] Last Admin: 09/07/18 17:45 Dose: 10 mg Clonidine HCl (Catapres) 0.2 mg PO BID [facility]; Protocol Last Admin: 09/08/18 10:41 Dose: 0.2 mg Doxazosin Mesylate (Cardura) 4 mg PO [facility] Last Admin: 09/07/18 21:17 Dose: 4 mg Famotidine (Pepcid) 20 mg PO HS [facility] Last Admin: 09/07/18 21:18 Dose: 20 mg Ferrous Gluconate (Fergon) 324 mg PO DAILY [facility] Last Admin: 09/08/18 10:42 Dose: 324 mg Meropenem/Sodium Chloride (Merrem Iv 500 Mg/Ns 50 Ml) 500 mg in 50 mls @ 100 mls/hr IVPB 2200 [facility]; Protocol Stop: 09/09/18 22:29 Last Admin: 09/07/18 21:18 Dose: 100 mls/hr Letrozole (Femara) 2.5 mg PO DAILY [facility] Last Admin: 09/08/18 11:02 Dose: 2.5 mg Metoprolol Tartrate (Lopressor) 50 mg PO 0800,1800 [facility]; Protocol Last Admin: 09/08/18 08:15 Dose: 50 mg Nifedipine (Procardia Xl) 90 mg PO DAILY [facility] Last Admin: 09/08/18 10:42 Dose: 90 mg Nitroglycerin (Nitro-Bid 2% Oint) 1 ea TOP Q4 PRN PRN Reason: high pressure above 160 Last Admin: 09/07/18 06:58 Dose: 1 ea Ondansetron HCl (Zofran Inj) 4 mg IVP Q6H PRN PRN Reason: Nausea/Vomiting Tamsulosin HCl (Flomax) 0.4 mg PO 1830 [facility] Last Admin: 09/07/18 17:45 Dose: 0.4 mg - Labs Labs: 09/04/18 06:30 09/06/18 11:45 - Constitutional Appears: Non-toxic, No Acute Distress, Chronically Ill - Head Exam Head Exam: ATRAUMATIC, NORMOCEPHALIC - Eye Exam Eye Exam: EOMI Pupil Exam: NORMAL ACCOMODATION, PERRL - ENT Exam ENT Exam: Mucous Membranes Moist, Normal External Ear Exam, TM's Normal Bilaterally - Neck Exam Neck Exam: Full ROM, Normal Inspection - Respiratory Exam Respiratory Exam: Clear to Ausculation Bilateral, NORMAL BREATHING PATTERN. absent: Rales, Rhonchi, Wheezes - Cardiovascular Exam Cardiovascular Exam: REGULAR RHYTHM, RRR, +S1, +S2 - GI/Abdominal Exam GI & Abdominal Exam: Soft, Normal Bowel Sounds. absent: Distended, Tenderness - Extremities Exam Extremities Exam: Full ROM, Normal Inspection - Neurological Exam Neurological Exam: Alert, Awake, CN II-XII Intact, Oriented x3 - Psychiatric Exam Psychiatric exam: Normal Affect, Normal Mood - Skin Skin Exam: Intact, Normal Color Assessment and Plan - Assessment and Plan (Free Text) Assessment: 63 yo female well known to me presenting for bilateral urethral stent exchange. She developed hypotension and borderline fevers in recovery room Hu cultures sent. Unfortunately, no urine cultures are available. Prior history of ESBL+ Pseudomonas and E.coli. Will continue with Meropenem IV for now. R/O sepsis. R/O UTI given patient's history. No more than ten days of treatment. On day 9 now. Supportive care. No complaints at this time. Thank you for allowing me to participate in the care of the patient, we will follow with you.
[2018-09-08] MEDS: MEROPENEM 500 MG in NS 500 MG/50 ML BAG IVPB SCH (21:49)
[2018-09-09] MEDS: NIFEdipine 90 mg ER Tab PO SCH (10:21)
--- NOTE | 2018-09-09 13:49 | PN ---
DATE: 09/09/2018 SUBJECTIVE: This 63-year-old female was examined at bedside in the presence of nurse, Alicja Garcia, registered nurse. , Joe, was present for interview as well. The patient denied any fever, chills, chest pain or shortness of breath and is tolerating IV meropenem for urosepsis with previous cultures growing Proteus mirabilis and ESBL. PHYSICAL EXAMINATION: VITAL SIGNS: Temperature was 97.9, respirations 18, pulse 57 and blood pressure 143/88. HEAD: Normocephalic, atraumatic. Eyes: No icterus. Ears: Clear. Throat: Noninjected. NECK: Supple. HEART: S1, S2. LUNGS: Clear. ABDOMEN: Soft. EXTREMITIES: No edema. SKIN: Without rash. NEUROLOGICAL: Intact. PSYCHOLOGICAL: Alert. VASCULAR: Legs warm to touch. LABORATORY DATA: White count 5300, hemoglobin 9.5, hematocrit 31.3, platelets 304,000. Sodium 141, K 4.3, chloride 111, bicarb 24, BUN 31, creatinine 2.3. Estimated GFR 21 mL per minute. Sugar 107, calcium 8.8. Iron 34, TIBC 204, percent saturation 17, ferritin 302. Vitamin B12 of 317. Folic acid 8.1. IMPRESSION: A 63-year-old female with obesity, metastatic uterine cancer stage IV, chronic hypertension, iron-deficiency anemia, history of chronic renal failure stage IV, bilateral hydronephrosis with chronic urinary ureteral stents, urosepsis, hyperlipidemia, hypertension, peptic ulcer disease with gastroesophageal reflux disease and degenerative arthritis. PLAN: Continue Cardura, clonidine, Femara, Fergon, Flomax, Lipitor, Lopressor and IV meropenem. She is ordered to receive Pepcid, Procardia XL, Tylenol and Zofran as well as nitroglycerin ointment to chest wall p.r.n. accelerated hypertension. She is continuing with physical and occupational therapy. She has requested home physical therapy. She remains on isolation and ultimate plan will be for discharge to home upon completion of IV antibiotic course. Greater than 35 minutes was spent in the care management, review of labs, orders and x-rays and discussion of this patient with herself, her , her nurse and [employer] and case management. All questions were answered. Luisa Pa MD [facility] # [id number]
[2018-09-09 16:21] VITALS: RESP 16; TEMP 97; O2SAT 100
--- NOTE | 2018-09-09 18:41 | CP.PCM.PN ---
Subjective - Date & Time of Evaluation Date of Evaluation: 09/09/18 Time of Evaluation: 16:15 - Subjective Subjective: Infectious Disease Follow Up: September 09, 2018 63 yo female with known history of metastatic uterine carcinoma. The patient was brought into [facility] [place] for bilateral urethral stent replacements for her chronic bilateral hydronephrosis. She developed borderline fevers and hypotension while in recovery. She was admitted for evaluation and overnight monitoring. Blood cultures negative. No urine cultures available. Transferred to [facility]. On Meropenem given cultures in the past. No new issues. Patient with no complaints at this time. Objective - Vital Signs/Intake and Output Vital Signs (last 24 hours): Temp Pulse Resp BP Pulse Ox 97 F L 62 16 117/69 100 09/09/18 16:00 09/09/18 16:00 09/09/18 16:00 09/09/18 17:56 09/09/18 16:00 - Medications Medications: Current Medications Acetaminophen (Tylenol 325mg Tab) 650 mg PO Q6H PRN PRN Reason: temp above 101 Last Admin: 09/09/18 10:20 Dose: 650 mg Acetaminophen (Tylenol 325mg Tab) 650 mg PO Q6H PRN PRN Reason: Pain, Mild (1-3) Last Admin: 09/07/18 22:46 Dose: 650 mg Atorvastatin Calcium (Lipitor) 10 mg PO 1700 [facility] Last Admin: 09/09/18 17:56 Dose: 10 mg Clonidine HCl (Catapres) 0.2 mg PO BID [facility]; Protocol Last Admin: 09/09/18 17:55 Dose: 0.2 mg Doxazosin Mesylate (Cardura) 4 mg PO [facility] Last Admin: 09/08/18 21:49 Dose: 4 mg Famotidine (Pepcid) 20 mg PO [facility] Last Admin: 09/08/18 21:50 Dose: 20 mg Ferrous Gluconate (Fergon) 324 mg PO DAILY [facility] Last Admin: 09/09/18 10:21 Dose: 324 mg Meropenem/Sodium Chloride (Merrem Iv 500 Mg/Ns 50 Ml) 500 mg in 50 mls @ 100 mls/hr IVPB 2200 [facility]; Protocol Stop: 09/09/18 22:29 Last Admin: 09/08/18 21:49 Dose: 100 mls/hr Letrozole (Femara) 2.5 mg PO DAILY [facility] Last Admin: 09/09/18 10:17 Dose: 2.5 mg Metoprolol Tartrate (Lopressor) 50 mg PO 0800,1800 [facility]; Protocol Last Admin: 09/09/18 17:56 Dose: 50 mg Nifedipine (Procardia Xl) 90 mg PO DAILY [facility] Last Admin: 09/09/18 10:21 Dose: 90 mg Nitroglycerin (Nitro-Bid 2% Oint) 1 ea TOP Q4 PRN PRN Reason: high pressure above 160 Last Admin: 09/07/18 06:58 Dose: 1 ea Ondansetron HCl (Zofran Inj) 4 mg IVP Q6H PRN PRN Reason: Nausea/Vomiting Tamsulosin HCl (Flomax) 0.4 mg PO 1830 [facility] Last Admin: 09/09/18 17:56 Dose: 0.4 mg - Labs Labs: 09/04/18 06:30 09/06/18 11:45 - Constitutional Appears: Non-toxic, No Acute Distress, Chronically Ill - Head Exam Head Exam: ATRAUMATIC, NORMOCEPHALIC - Eye Exam Eye Exam: EOMI, PERRL Pupil Exam: NORMAL ACCOMODATION, PERRL - ENT Exam ENT Exam: Mucous Membranes Moist, Normal External Ear Exam, TM's Normal Bilaterally - Neck Exam Neck Exam: Full ROM, Normal Inspection - Respiratory Exam Respiratory Exam: Clear to Ausculation Bilateral, NORMAL BREATHING PATTERN. absent: Rales, Rhonchi, Wheezes - Cardiovascular Exam Cardiovascular Exam: REGULAR RHYTHM, RRR, +S1, +S2 - GI/Abdominal Exam GI & Abdominal Exam: Soft, Normal Bowel Sounds. absent: Distended, Tenderness - Extremities Exam Extremities Exam: Full ROM, Normal Inspection - Neurological Exam Neurological Exam: Alert, Awake, CN II-XII Intact, Oriented x3 - Psychiatric Exam Psychiatric exam: Normal Affect, Normal Mood - Skin Skin Exam: Intact, Normal Color Assessment and Plan - Assessment and Plan (Free Text) Assessment: 63 yo female well known to me presenting for bilateral urethral stent exchange. She developed hypotension and borderline fevers in recovery room Hu cultures sent. Unfortunately, no urine cultures are available. Prior history of ESBL+ Pseudomonas and E.coli. Will continue with Meropenem IV for now. R/O sepsis. R/O UTI given patient's history. No more than ten days of treatment. On day 10 now. Supportive care. No complaints at this time. Patient comfortable. Thank you for allowing me to participate in the care of the patient, we will follow with you.
[2018-09-09] MEDS: MEROPENEM 500 MG in NS 500 MG/50 ML BAG IVPB SCH (21:15)
[2018-09-10] MEDS: Nitroglycerin 2% Ointment Foilpak UD TOP PRN (06:44)
[2018-09-10] MEDS: NIFEdipine 90 mg ER Tab PO SCH (10:03)
[2018-09-10 10:05] VITALS: BP 153/90; PULSE 77
--- NOTE | 2018-09-10 15:34 | CP.PCM.PN ---
Subjective - Date & Time of Evaluation Date of Evaluation: 09/10/18 Time of Evaluation: 13:30 - Subjective Subjective: Infectious Disease Follow Up: September 10, 2018 63 yo female with known history of metastatic uterine carcinoma. The patient was [place] [facility] [place] bilateral urethral stent replacements for her chronic bilateral hydronephrosis. She developed borderline fevers and hypotension while in recovery. She was admitted for evaluation and overnight monitoring. Blood cultures negative. No urine cultures available. Transferred to [facility]. On Meropenem given cultures in the past. No new issues. Patient with no complaints at this time. Objective - Vital Signs/Intake and Output Vital Signs (last 24 hours): Temp Pulse Resp BP Pulse Ox 97 F L 77 16 153/90 H 100 09/09/18 16:00 09/10/18 10:02 09/09/18 16:00 09/10/18 10:03 09/09/18 16:00 - Labs Labs: 09/04/18 06:30 09/06/18 11:45 - Constitutional Appears: Non-toxic, No Acute Distress, Chronically Ill - Head Exam Head Exam: ATRAUMATIC, NORMOCEPHALIC - Eye Exam Eye Exam: EOMI, PERRL Pupil Exam: NORMAL ACCOMODATION, PERRL - ENT Exam ENT Exam: Mucous Membranes Moist, Normal External Ear Exam, TM's Normal Bilaterally - Neck Exam Neck Exam: Full ROM, Normal Inspection - Respiratory Exam Respiratory Exam: Clear to Ausculation Bilateral, NORMAL BREATHING PATTERN. absent: Rales, Rhonchi, Wheezes - Cardiovascular Exam Cardiovascular Exam: REGULAR RHYTHM, RRR, +S1, +S2 - GI/Abdominal Exam GI & Abdominal Exam: Soft, Normal Bowel Sounds. absent: Distended, Tenderness - Extremities Exam Extremities Exam: Full ROM, Normal Inspection - Neurological Exam Neurological Exam: Alert, Awake, CN II-XII Intact, Oriented x3 - Psychiatric Exam Psychiatric exam: Normal Affect, Normal Mood - Skin Skin Exam: Intact, Normal Color Assessment and Plan - Assessment and Plan (Free Text) Assessment: 63 yo female well known to me presenting for bilateral urethral stent exchange. She developed hypotension and borderline fevers in recovery room Hu cultures sent. Unfortunately, no urine cultures are available. Prior history of ESBL+ Pseudomonas and E.coli. Will continue with Meropenem IV for now. R/O sepsis. R/O UTI given patient's history. No more than ten days of treatment. On day 11 now. Supportive care. No complaints at this time. Patient comfortable. Thank you for allowing me to participate in the care of the patient, we will follow with you.
--- NOTE | 2018-09-10 19:59 | DS ---
FINAL DIAGNOSES: Urosepsis resolved, obesity, bilateral hydronephrosis, bilateral ureteral stents, chronic renal failure stage IV, anemia of chronic disease, chronic hypertension, metastatic uterine cancer stage IV, urinary incontinence, hyperlipidemia, peptic ulcer disease with gastroesophageal reflux disease, degenerative arthritis. DISPOSITION: Home. FOLLOW-UP: In my office. Followup with Dr. Yadiel Weinberg, Urology. RECOMMENDATIONS: The patient will need ureteral stents changed in mid 09/2018. DISCHARGE MEDICATIONS: Cardura 4 mg p.o. at bedtime, clonidine 0.2 mg b.i.d., Femara 2.5 mg p.o. daily, ferrous gluconate 324 mg p.o. daily, Flomax 0.4 mg p.o. at bedtime, Lipitor 10 mg p.o. daily, Lopressor 50 mg b.i.d., Pepcid 20 mg p.o. at bedtime, Procardia XL 90 mg p.o. daily. SUMMARY: This 63-year-old female was admitted to [facility] where she received IV antibiotics including IV meropenem for urosepsis, fever and history of ESBL and Proteus mirabilis bacteremia in her past. At the time of discharge, temperature was 97, respirations 16, pulse 77 and blood pressure 153/90. LABORATORY DATA: White count 5300, hemoglobin 9.5, hematocrit 31.3, platelets 304,000. Sodium 141, K 4.3, chloride 111, bicarb 24, BUN 31, creatinine 2.3. Estimated GFR 21 mL per minute, glucose 107, calcium 8.8, percent saturation of iron 17, ferritin 302. B12 317 and folic acid 8.1. The patient is discharged to home, will follow up with myself, Dr. Oquendo oncologist at [facility] and Dr. Yadiel Weinberg urologist. The patient was advised for any change in signs and symptoms to present directly to [facility] ER. Greater than thirty five minutes was spent with the patient today. All of her discharge instructions including review of medication was done in the presence of her Joe, and nurse Alicja Garcia, registered nurse. Luisa Pa MD [facility] # [id number] MTDD
== END 2018-09-10 14:10 | disposition home or self-care (01) | DRG 694 ==
LOC: TRCU 14:15
PROVIDERS: ADMIT Internal Medicine; ATTEND Internal Medicine
PROC: F07Z9FZ Gait Training/Functional Ambulation Treatment using Assistive, Adaptive, Supportive or Protective Equipment (ICD-10-PCS; principal; 2018-09-02)
PROC: F07M6ZZ Therapeutic Exercise Treatment of Musculoskeletal System - Whole Body (ICD-10-PCS; 2018-09-02)
DX: N13.30 Unspecified hydronephrosis (principal); I12.9 Hypertensive chronic kidney disease with stage 1 through stage 4 chronic kidney disease, or unspecified chronic kidney disease; N18.4 Chronic kidney disease, stage 4 (severe); R32 Unspecified urinary incontinence; C55 Malignant neoplasm of uterus, part unspecified; D63.8 Anemia in other chronic diseases classified elsewhere; E78.5 Hyperlipidemia, unspecified; K27.9 Peptic ulcer, site unspecified, unspecified as acute or chronic, without hemorrhage or perforation; K21.9 Gastro-esophageal reflux disease without esophagitis; E66.9 Obesity, unspecified; M19.90 Unspecified osteoarthritis, unspecified site; J44.9 Chronic obstructive pulmonary disease, unspecified; D50.9 Iron deficiency anemia, unspecified; Z86.19 Personal history of other infectious and parasitic diseases; Z68.37 Body mass index [BMI] 37.0-37.9, adult

== ENCOUNTER 2018-10-03 09:55 | Outpatient (CLI) | payer MEDICARE, BC | END 2018-10-03 09:56 | disposition home or self-care (01) | LOC: RAD 09:55 ==

== ENCOUNTER 2018-10-20 21:44 | Emergency (ER) | payer MEDICARE, BC ==
[2018-10-20 21:44] VITALS: BMI 37.1
[2018-10-20] MEDS ORDERED: Sodium Chloride 0.9% 1,000 ML IV STA (22:07)
[2018-10-20 22:08] VITALS: RESP 18; O2SAT 100
--- NOTE | 2018-10-20 22:14 | ED PDOC ---
Arrival/HPI - General Chief Complaint: Fever Time Seen by Provider: 10/20/18 21:47 - History of Present Illness Narrative History of Present Illness (Text): 63 y/o F c PMHx hydronephrosis with ureteral stents, uterine cancer with mets to liver p/w fever x 1 day. Temperature 101 at home, took acetaminophen prior to arrival. Patient reports cough. Denies headache, stiff neck, vomiting, chest pain, dyspnea, abdominal pain, diarrhea, dysuria. Patient notes she has had sepsis in the past which causes her to come to the ED immediately whenever she has a fever. Past Medical History - Infectious Disease Hx of Infectious Diseases: None - Reproductive Menopause: No - Cardiac Hx Hypertension: Yes - Pulmonary Hx Chronic Obstructive Pulmonary Disease (COPD): Yes - Neurological Hx Neurological Disorder: No - HEENT Hx HEENT Disorder: Yes (uses reading glasses) - Renal Hx Renal Failure: Yes (chronic stg 3) - Endocrine/Metabolic Hx Endocrine Disorders: No - Hematological/Oncological Hx Cancer: Yes - Integumentary Hx Dermatological Disorder: Yes - Musculoskeletal/Rheumatological Hx Falls: Yes (past) - Gastrointestinal Hx Gastrointestinal Disorders: Yes (PUD,GERD) - Genitourinary/Gynecological Hx Genitourinary Disorders: Yes (URINARY RETENTION,BILATERAL HYDRONEPHROISIS,UTI,JORGITO.URETERAL STNET REPLACED) Hx Reproductive Disorders: No - Psychiatric Hx Emotional Abuse: No Hx Physical Abuse: No Hx Substance Use: No - Surgical History Hx Mastectomy: No - Anesthesia Hx Anesthesia Reactions: No Hx Malignant Hyperthermia: No - Suicidal Assessment Feels Threatened In Home Enviroment: No Family/Social History Family/Social History: No Known Family HX Smoking Status: Never Smoked Hx Alcohol Use: No Hx Substance Use: No Hx Substance Use Treatment: No Allergies/Home Meds Allergies/Adverse Reactions: Allergies No Known Allergies Allergy (Verified 09/02/18 18:11) Home Medications: Home Meds Medication Instructions Recorded Confirmed Cranberry Conc/C/Bacill Coag [Azo 1 each PO DAILY 08/24/18 10/20/18 Cranberry Tablet] Oxybutynin [Ditropan Tab] 5 mg PO Q12 10/20/18 10/20/18 Tramadol HCl/Acetaminophen 1 tab PO Q6 10/20/18 10/20/18 [Tramadol-Acetaminophn 37.5-325] Review of Systems - Physician Review All systems were reviewed & negative as marked: Yes - Review of Systems Respiratory: absent: SOB Cardiovascular: absent: Chest Pain Physical Exam - Physical Exam Narrative Physical Exam (Text): Gen: NAD Head: NC/AT Eyes: PERRL ENT: MMM Neck: Supple Chest: No tenderness CV: Regular rate Lungs: CTA b/l Abd: Soft, NT Back: No CVA tenderness Skin: No rash Extremities: No deformity Neuro: Alert Vital Signs Temp Pulse Resp BP Pulse Ox 10/20/18 21:58 98.3 F 78 18 135/74 100 Medical Decision Making ED Course and Treatment: Assess for causes of fever, supportive care, send cultures. 10/21/18 00:23 Procedure: Chest X-ray Dictator: Dr. Fidencio Wu M.D. Impression: 1. No acute cardiopulmonary pathology is evident. 2. Mild cardiomegaly. Discharged home, cultures sent, f/u PMD, return to ED for any worsening pain, dyspnea, vomiting, or any other focal symptoms. - RAD Interpretation Radiology Orders: 10/20/18 22:07 CHEST TWO VIEWS (PA/LAT) [RAD] Stat - Medication Orders Current Medication Orders: Sodium Chloride (Sodium Chloride 0.9%) 1,000 mls @ 250 mls/hr IV .Q4H STA Stop: 10/21/18 02:06 Disposition/Present on Arrival - Present on Arrival Any Indicators Present on Arrival: No History of DVT/PE: No History of Uncontrolled Diabetes: No Urinary Catheter: No History of Decub. Ulcer: No History Surgical Site Infection Following: None - Disposition Have Diagnosis and Disposition been Completed?: Yes Diagnosis: Fever Disposition: HOME/ ROUTINE Disposition Time: 00:43 Patient Plan: Discharge Condition: GOOD Discharge Instructions (ExitCare): Fever, Adult (DC) Referrals: Luisa Pa MD [Staff Provider] - Follow up with primary Forms: B-Obvious (Tajik)
[2018-10-20 22:40] LABS: BASO # 0.01 K/mm3 (0.0-2.0); BASO % 0.2 % (0.0-3.0); EOS % 0.5 % (1.5-5.0); HEMOGLOBIN 10.8 g/dL (12.0-16.0); LYMPH # 0.8 (1.2-3.4); LYMPH % 11.9 % (22.0-35.0); MEAN CELL VOLUME 93.1 fl (80.0-105.0); MEAN CORPUSCULAR HEMOGLOBIN 29.9 pg (25.0-35.0); MEAN CORPUSCULAR HGB CONC 32.1 g/dl (31.0-37.0); MEAN PLATELET VOLUME 8.7 fl (7.0-11.0); MONO # 0.7 (0.1-0.6); MONO % 11.2 % (1.0-6.0); RBC 3.61 10^6/uL (3.5-6.1); RED CELL DISTRIBUTION WIDTH 14.3 % (11.5-14.5); WHITE BLOOD COUNT 6.5 10^3/uL (4.5-11.0)
[2018-10-20 22:53] LABS: ALB/GLOB RATIO 0.8 (1.1-1.8); ALBUMIN 3.8 g/dL (3.0-4.8); AST/SGOT 23 U/L (14-36); BLOOD UREA NITROGEN 51 mg/dL (7-21); CALCIUM 9.2 mg/dL (8.4-10.5); GFR NON-AFRICAN AMERICAN 13
[2018-10-20 23:03] LABS: ALT/SGPT < 6 U/L (7-56)
[2018-10-21 01:46] VITALS: BP 128/75; PULSE 75; TEMP 98.9
--- NOTE | 2018-10-21 09:42 | RAD ---
Date of service: 10/20/2018 HISTORY: fever, cough COMPARISON: Chest radiographs 08/15/2018. TECHNIQUE: Chest PA and lateral FINDINGS: LUNGS: Inspiratory effort appears somewhat diminished. No definite infiltrates bilaterally. PLEURA: No significant pleural effusion identified. No pneumothorax apparent. CARDIOVASCULAR: No aortic atherosclerotic calcification present. Normal cardiac size. No pulmonary vascular congestion. OSSEOUS STRUCTURES: No significant abnormalities. VISUALIZED UPPER ABDOMEN: Normal. OTHER FINDINGS: None. IMPRESSION: No interval acute cardiopulmonary disease appreciated.
== END 2018-10-21 01:00 | disposition home or self-care (01) ==
LOC: ED 21:44
DX: R50.9 Fever, unspecified (principal); I10 Essential (primary) hypertension
CPT/HCPCS: 71046; 80053; 85025; 87040; 87804; 99284; J7030

== ENCOUNTER 2018-10-21 12:34 | Inpatient (IN) | payer MEDICARE, BC ==
[2018-10-21 12:45] VITALS: BMI 36.8
--- NOTE | 2018-10-21 13:21 | ED PDOC ---
Arrival/HPI - General Chief Complaint: Fever Time Seen by Provider: 10/21/18 12:56 Historian: Patient - History of Present Illness Narrative History of Present Illness (Text): 10/21/18 13:16 A 63 year old female, whose past medical history includes hydronephrosis with ureteral stents, and uterine cancer with mets to liver, presents to the emergency department complaining of fever at 102 at 11:00 today. gave patient Tylenol and waited for 30 minutes, however fever did not subside so he decided to bring patient here to the ER to be evaluated. Patient reports she was seen here yesterday, had flu swab, Chest X-Ray, labs, and all were negative. Patient was told by PMD if fever persists to arrive to ER. Patient notes also experiencing some dysuria, however denies any chest pain, neck stiffness, cough, body aches, sore throat, abdominal abarca, constipation, stool changes, hematuria, flank/back pain, weakness, or any other complaints at this time. No change in complaints since yesterday. Denies any new medications. Denies any history of IV drugs use, and no current chemotherapy. PMD: Dr. Pa Past Medical History - Provider Review Nursing Documentation Reviewed: Yes - Infectious Disease Hx of Infectious Diseases: None - Reproductive Menopause: Yes - Cardiac Hx Hypertension: Yes - Pulmonary Hx Chronic Obstructive Pulmonary Disease (COPD): Yes - Neurological Hx Neurological Disorder: No - HEENT Hx HEENT Disorder: Yes (uses reading glasses) - Renal Hx Renal Failure: Yes (chronic stg 3) - Endocrine/Metabolic Hx Endocrine Disorders: No - Hematological/Oncological Hx Cancer: Yes (uterine) - Integumentary Hx Dermatological Disorder: Yes - Musculoskeletal/Rheumatological Hx Falls: Yes (past) - Gastrointestinal Hx Gastrointestinal Disorders: Yes (PUD,GERD) - Genitourinary/Gynecological Hx Genitourinary Disorders: Yes (URINARY RETENTION,BILATERAL HYDRONEPHROISIS,UTI,JORGITO.URETERAL STNET REPLACED) - Psychiatric Hx Substance Use: No - Surgical History Hx Hysterectomy: Yes - Anesthesia Hx Anesthesia Reactions: No Hx Malignant Hyperthermia: No - Suicidal Assessment Feels Threatened In Home Enviroment: No Family/Social History - Physician Review Nursing Documentation Reviewed: Yes Family/Social History: No Known Family HX Smoking Status: Never Smoked Hx Alcohol Use: No Hx Substance Use: No Hx Substance Use Treatment: No Allergies/Home Meds Allergies/Adverse Reactions: Allergies No Known Allergies Allergy (Verified 09/02/18 18:11) Home Medications: Home Meds Medication Instructions Recorded Confirmed Cranberry Conc/C/Bacill Coag [Azo 1 each PO DAILY 08/24/18 10/21/18 Cranberry Tablet] Oxybutynin [Ditropan Tab] 5 mg PO Q12 10/20/18 10/21/18 Tramadol HCl/Acetaminophen 1 tab PO Q6 10/20/18 10/21/18 [Tramadol-Acetaminophn 37.5-325] Review of Systems - Physician Review All systems were reviewed & negative as marked: Yes - Review of Systems Constitutional: Fevers Eyes: absent: Vision Changes ENT: absent: Hearing Changes, TMJ Pain, Sore Throat, Rhinorrhea, Epistaxis, Sinus Congestion Respiratory: absent: Cough Cardiovascular: absent: Chest Pain Gastrointestinal: absent: Abdominal Pain, Stool Changes (no bloody/dark stool), Constipation Genitourinary Female: Dysuria (some dysuria). absent: Hematuria Musculoskeletal: absent: Back Pain (and no flank pain), Myalgias, Other (no neck stiffness) Neurological: absent: Other (no weakness) Physical Exam Vital Signs Reviewed: Yes Vital Signs Temp Pulse Resp BP Pulse Ox 10/21/18 12:34 99.1 F 71 18 105/54 L 95 Temperature: Afebrile Blood Pressure: Normal Pulse: Regular Respiratory Rate: Normal Appearance: Positive for: Well-Appearing, Non-Toxic, Comfortable Pain Distress: None Mental Status: Positive for: Alert and Oriented X 3 - Systems Exam Head: Present: Atraumatic, Normocephalic Pupils: Present: PERRL Extroacular Muscles: Present: EOMI Conjunctiva: Present: Normal Ears: Present: Normal, NORMAL TM Mouth: Present: Moist Mucous Membranes Pharnyx: Present: Normal, Soft Palate/Uvular Edema. No: ERYTHEMA, EXUDATE, TONSILS ENLARGED, Peritonsilar Swelling, Uvular Deviation, Muffled/Hoarse Voice, Strider Nose (Internal): Present: Normal Inspection Neck: Present: Normal Range of Motion. No: Meningeal Signs, MIDLINE TENDERNESS Respiratory/Chest: Present: Clear to Auscultation, Good Air Exchange. No: Respiratory Distress, Accessory Muscle Use Cardiovascular: Present: Regular Rate and Rhythm, Normal S1, S2. No: Murmurs Abdomen: No: Tenderness, Distention, Peritoneal Signs Back: Present: Normal Inspection. No: CVA Tenderness, Midline Tenderness, Paraspinal Tenderness Upper Extremity: Present: Normal Inspection. No: Cyanosis, Edema Lower Extremity: Present: Normal Inspection. No: Edema Neurological: Present: GCS=15, CN II-XII Intact, Speech Normal Skin: Present: Warm, Dry, Normal Color. No: Rashes Lymphatic: No: Cervical Adenopathy Psychiatric: Present: Alert, Oriented x 3, Normal Insight, Normal Concentration Medical Decision Making ED Course and Treatment: 10/21/18 13:18 Impression: 63 year old female with fever. Physical exam is unremarkable. Likely UTI, given negative XR and largely unremarkable labs the day before. No meningeal signs on exam. No rash or vertebral pain. No orophyrangeal abnls. Differential Diagnosis included but are not limited to: UTI vs. Viral URI vs. Fever of unk origin Plan: -- Urinalysis -- Rapid Strep Test -- Reassess and disposition Prior Visits: Notes and results from previous visits were reviewed. Patient was last seen here on 10/20/2018 for fever. Progress Notes: 10/21/18 13:[address] Pa, who wants patient to be admitted for blood work and likely UTI. Pt in NAD, agreeable to plan of admission - Scribe Statement The provider has reviewed the documentation as recorded by the Arian Cohn Provider Scribe Attestation: All medical record entries made by the Neenaibpepper were at my direction and personally dictated by me. I have reviewed the chart and agree that the record accurately reflects my personal performance of the history, physical exam, medical decision making, and the department course for this patient. I have also personally directed, reviewed, and agree with the discharge instructions and disposition. Disposition/Present on Arrival - Present on Arrival Any Indicators Present on Arrival: No History of DVT/PE: No History of Uncontrolled Diabetes: No Urinary Catheter: No History of Decub. Ulcer: No History Surgical Site Infection Following: None - Disposition Have Diagnosis and Disposition been Completed?: Yes Diagnosis: UTI (urinary tract infection) Disposition: HOSPITALIZED Disposition Time: 13:25 Patient Problems: Current Active Problems Problem Status Onset UTI (urinary tract infection) Acute Condition: STABLE
[2018-10-21] MEDS ORDERED: Vancomycin 1gm in NS 250ml 1 GM/250 ML BAG IVPB STA ×2 (13:25→19:34)
[2018-10-21] MEDS ORDERED: MEROPENEM 500 MG in NS 500 MG/50 ML BAG IVPB ONE (13:26)
[2018-10-21 14:05] LABS: URINE BILIRUBIN NEGATIVE (NEGATIVE); URINE BLOOD LARGE (NEGATIVE); URINE GLUCOSE (UA) NEGATIVE (NEGATIVE); URINE LEUKOCYTE ESTERASE MODERATE Leu/uL (NEGATIVE); URINE PROTEIN 100 mg/dL (<30 mg/dL); URINE UROBILINOGEN 0.2 E.U./dL (<1 E.U./dL)
[2018-10-21 14:08] LABS: URINE APPEARANCE SLIGHT-CLOUDY (CLEAR); URINE COLOR YELLOW (YELLOW)
[2018-10-21 14:14] LABS: URINE RBC TNTC /hpf (0-2)
[2018-10-21 14:15] LABS: URINE BACTERIA LARGE /hpf; URINE EPITHELIAL CELLS 0 - 2 /hpf (0-5); URINE WBC TNTC /hpf (0-6)
[2018-10-21 14:27] LABS: VENOUS BLOOD GAS BASE EXCESS -8.1 mmol/L (0.0-2.0); VENOUS BLOOD GAS PO2 51 mm/Hg (30-55); VENOUS BLOOD PH 7.37 (7.32-7.43)
[2018-10-21 14:28] LABS: ALB/GLOB RATIO 0.8 (1.1-1.8); ALBUMIN 3.4 g/dL (3.0-4.8)
[2018-10-21 14:33] LABS: BASO # 0.01 K/mm3 (0.0-2.0); BASO % 0.1 % (0.0-3.0); EOS % 0.1 % (1.5-5.0); HEMOGLOBIN 9.7 g/dL (12.0-16.0); LYMPH % 9.8 % (22.0-35.0); MEAN CELL VOLUME 92.9 fl (80.0-105.0); MEAN CORPUSCULAR HEMOGLOBIN 29.8 pg (25.0-35.0); MEAN CORPUSCULAR HGB CONC 32.1 g/dl (31.0-37.0); MEAN PLATELET VOLUME 8.7 fl (7.0-11.0); MONO # 0.5 (0.1-0.6); MONO % 4.7 % (1.0-6.0); RBC 3.25 10^6/uL (3.5-6.1); RED CELL DISTRIBUTION WIDTH 14.4 % (11.5-14.5); WHITE BLOOD COUNT 10.4 10^3/uL (4.5-11.0)
[2018-10-21] MEDS: Sodium Chloride 0.9% 1,000 ML IV SCH (14:44)
[2018-10-21] MEDS ORDERED: TraMADol/Apap 37.5/325 mg Tab PO PRN (15:43)
[2018-10-21] MEDS ORDERED: Influenza Vaccine 60 mcg/0.5 mL SYR (4YR UP) IM ONE (21:57)
--- NOTE | 2018-10-21 22:01 | CP.PCM.CON ---
History of Present Illness - History of Present Illness History of Present Illness: Infectious Disease Consultation: October 21, 2018 63 yo female with known history of metastatic uterine carcinoma. The patient was brought into [facility] for fevers of 102 F at home. Fevers up to 104 F. Came to ER yesterday and sent home when UA and influenza testing was found to be negative. Still no leukocytosis. PMHx: Uterine Carcinoma with metastatic disease, Obesity, hypertension, anemia, hyperlipidemia, GERDs, bilateral hydronephrosis with replaced bilateral urethral stents, chronic renal disease stage III, degenerative arthritis, and COPD PSHx: Bilateral urethral stents Allergies: NKDA Social Hx: No tobacco, no EtOH, or illicit drug use Active Medications Acetaminophen (Tylenol 325mg Tab) 650 mg PO Q6H PRN PRN Reason: Fever >100.4 F Last Admin: 10/21/18 17:19 Dose: 650 mg Atorvastatin Calcium (Lipitor) 10 mg PO DIN [facility] Last Admin: 10/21/18 17:19 Dose: 10 mg Clonidine HCl (Catapres) 0.2 mg PO Q12 [facility] Doxazosin Mesylate (Cardura) 4 mg PO HS [facility] Famotidine (Pepcid) 20 mg PO HS ONE Stop: 10/21/18 22:01 Ferrous Gluconate (Fergon) 324 mg PO DAILY [facility] Home Med (Home Med) 1 unit PO DAILY [facility] Sodium Chloride (Sodium Chloride 0.9%) 1,000 mls @ 100 mls/hr IV .Q10H [facility] Last Admin: 10/21/18 14:44 Dose: 100 mls/hr Meropenem/Sodium Chloride (Merrem Iv 500 Mg/Ns 50 Ml) 500 mg in 50 mls @ 100 mls/hr IVPB Q12 [facility]; Protocol Letrozole (Femara) 2.5 mg PO DAILY [facility] Metoprolol Tartrate (Lopressor) 50 mg PO BID [facility] Last Admin: 10/21/18 17:19 Dose: 50 mg Nifedipine (Procardia Xl) 90 mg PO DAILY [facility] Oxybutynin Chloride (Ditropan Tab) 5 mg PO TID [facility] Last Admin: 10/21/18 17:19 Dose: 5 mg Tramadol/Acetaminophen (Ultracet 37.5/325 Mg) 1 tab PO Q6H PRN PRN Reason: Pain, moderate (4-7) Family Hx: None given ROS: Patient stating fever. No headaches, dizziness, chest pain, abdominal pain, melena, hematuria, hematemesis, hematochezia, depression, anxiety Past Patient History - Infectious Disease Hx of Infectious Diseases: None - Past Social History Smoking Status: Never Smoked - CARDIAC Hx Hypertension: Yes - PULMONARY Hx Chronic Obstructive Pulmonary Disease (COPD): Yes - NEUROLOGICAL Hx Neurological Disorder: No - HEENT Hx HEENT Problems: Yes (uses reading glasses) - RENAL Hx Renal Failure: Yes (chronic stg 3) - ENDOCRINE/METABOLIC Hx Endocrine Disorders: No - HEMATOLOGICAL/ONCOLOGICAL Hx Cancer: Yes (uterine) - INTEGUMENTARY Hx Dermatological Problems: Yes - MUSCULOSKELETAL/RHEUMATOLOGICAL Hx Falls: Yes (past) - GASTROINTESTINAL Hx Gastrointestinal Disorders: Yes (PUD,GERD) - GENITOURINARY/GYNECOLOGICAL Hx Genitourinary Disorders: Yes (URINARY RETENTION,BILATERAL HYDRONEPHROISIS,UTI,JORGITO.URETERAL STNET REPLACED) - PSYCHIATRIC Hx Substance Use: No - SURGICAL HISTORY Hx Hysterectomy: Yes - ANESTHESIA Hx Anesthesia Reactions: No Hx Malignant Hyperthermia: No Meds Allergies/Adverse Reactions: Allergies Allergy/AdvReac Type Severity Reaction Status Date / Time No Known Allergies Allergy Verified 09/02/18 18:11 - Medications Medications: Current Medications Acetaminophen (Tylenol 325mg Tab) 650 mg PO Q6H PRN PRN Reason: Fever >100.4 F Last Admin: 10/21/18 17:19 Dose: 650 mg Atorvastatin Calcium (Lipitor) 10 mg PO DIN [facility] Last Admin: 10/21/18 17:19 Dose: 10 mg Clonidine HCl (Catapres) 0.2 mg PO Q12 [facility] Doxazosin Mesylate (Cardura) 4 mg PO HS [facility] Famotidine (Pepcid) 20 mg PO HS ONE Stop: 10/21/18 22:01 Ferrous Gluconate (Fergon) 324 mg PO DAILY [facility] Home Med (Home Med) 1 unit PO DAILY [facility] Sodium Chloride (Sodium Chloride 0.9%) 1,000 mls @ 100 mls/hr IV .Q10H [facility] Last Admin: 10/21/18 14:44 Dose: 100 mls/hr Meropenem/Sodium Chloride (Merrem Iv 500 Mg/Ns 50 Ml) 500 mg in 50 mls @ 100 mls/hr IVPB Q12 [facility]; Protocol Letrozole (Femara) 2.5 mg PO DAILY [facility] Metoprolol Tartrate (Lopressor) 50 mg PO BID [facility] Last Admin: 10/21/18 17:19 Dose: 50 mg Nifedipine (Procardia Xl) 90 mg PO DAILY [facility] Oxybutynin Chloride (Ditropan Tab) 5 mg PO TID [facility] Last Admin: 10/21/18 17:19 Dose: 5 mg Tramadol/Acetaminophen (Ultracet 37.5/325 Mg) 1 tab PO Q6H PRN PRN Reason: Pain, moderate (4-7) Physical Exam - Constitutional Appears: Non-toxic, No Acute Distress, Chronically Ill - Head Exam Head Exam: ATRAUMATIC - Eye Exam Eye Exam: EOMI, PERRL Pupil Exam: NORMAL ACCOMODATION, PERRL - ENT Exam ENT Exam: Mucous Membranes Moist, Normal External Ear Exam, TM's Normal Bilaterally - Neck Exam Neck exam: Positive for: Full Rom, Normal Inspection - Respiratory Exam Respiratory Exam: Clear to Auscultation Bilateral. absent: Rales, Rhonchi, Wheezes - Cardiovascular Exam Cardiovascular Exam: REGULAR RHYTHM, RRR, +S1, +S2 - GI/Abdominal Exam GI & Abdominal Exam: Normal Bowel Sounds, Soft. absent: Distended, Tenderness - Extremities Exam Extremities exam: Positive for: full ROM, normal inspection - Neurological Exam Neurological exam: Alert, CN II-XII Intact, Oriented x3 - Psychiatric Exam Psychiatric exam: Normal Affect, Normal Mood - Skin Skin Exam: Intact, Normal Color Results - Vital Signs Recent Vital Signs: Last Vital Signs Temp 104 F H 10/21/18 18:22 Pulse 113 H 10/21/18 17:19 Resp 18 10/21/18 15:03 BP 166/67 H 10/21/18 17:19 Pulse Ox 96 10/21/18 15:03 - Labs Result Diagrams: 10/21/18 14:00 10/21/18 14:00 Labs: Laboratory Results - last 24 hr 10/21/18 10/21/18 10/21/18 13:18 13:50 14:00 WBC 10.4 D RBC 3.25 L Hgb 9.7 L Hct 30.2 L MCV 92.9 MCH 29.8 MCHC 32.1 RDW 14.4 Plt Count 241 MPV 8.7 Neut % (Auto) 85.3 H Lymph % (Auto) 9.8 L [place] % (Auto) 4.7 Eos % (Auto) 0.1 L Baso % (Auto) 0.1 Lymph # (Auto) 1.0 L [place] # (Auto) 0.5 Eos # (Auto) 0.0 Baso # (Auto) 0.01 Absolute Neuts (auto) 8.89 H pO2 VBG pH VBG pCO2 VBG HCO3 VBG Total CO2 VBG O2 Sat (Calc) VBG Base Excess VBG Potassium Sodium Chloride Glucose Lactate FiO2 Crit Value Called To Crit Value Called By Blood Gas Notified Time Potassium Carbon Dioxide Anion Gap BUN Creatinine Est GFR ( Amer) Est GFR (Non-Af Amer) Random Glucose Calcium Magnesium Total Bilirubin AST ALT Alkaline Phosphatase Total Protein Albumin Globulin Albumin/Globulin Ratio Venous Blood Potassium Urine Color Yellow Urine Appearance Slight-cloudy Urine pH 6.0 Ur Specific [place] 1.025 Urine Protein 100 H Urine Glucose (UA) Negative Urine Ketones Negative Urine Blood Large H Urine Nitrate Negative Urine Bilirubin Negative Urine Urobilinogen 0.2 Ur Leukocyte Esterase Moderate H Urine RBC Tntc H Urine WBC Tntc H Ur Epithelial Cells 0 - 2 Urine Bacteria Large Grp A Beta Strep Ag Negative 10/21/18 10/21/18 14:00 14:00 WBC RBC Hgb Hct MCV MCH MCHC RDW Plt Count MPV Neut % (Auto) Lymph % (Auto) [place] % (Auto) Eos % (Auto) Baso % (Auto) Lymph # (Auto) [place] # (Auto) Eos # (Auto) Baso # (Auto) Absolute Neuts (auto) pO2 51 VBG pH 7.37 VBG pCO2 27.0 L VBG HCO3 15.6 L VBG Total CO2 16.4 L VBG O2 Sat (Calc) 91.0 H VBG Base Excess -8.1 L VBG Potassium 3.8 Sodium 136 136.0 Chloride 109 H 109.0 H Glucose 215 H Lactate 1.6 FiO2 21.0 Crit Value Called To Elan matta Crit Value Called By Bryon Blood Gas Notified Time 1426 Potassium 3.8 Carbon Dioxide 16 L Anion Gap 15 BUN 49 H Creatinine 3.8 H Est GFR ( Amer) 14 Est GFR (Non-Af Amer) 12 Random Glucose 213 H Calcium 9.0 Magnesium 2.1 Total Bilirubin 0.5 AST 19 ALT 10 Alkaline Phosphatase 68 Total Protein 7.6 Albumin 3.4 Globulin 4.2 Albumin/Globulin Ratio 0.8 L Venous Blood Potassium 3.8 Urine Color Urine Appearance Urine pH Ur Specific [place] Urine Protein Urine Glucose (UA) Urine Ketones Urine Blood Urine Nitrate Urine Bilirubin Urine Urobilinogen Ur Leukocyte Esterase Urine RBC Urine WBC Ur Epithelial Cells Urine Bacteria Grp A Beta Strep Ag Assessment & Plan - Assessment and Plan (Free Text) Assessment: 63 yo female well known to me presenting for fevers up to 104 F. History of frequent UTI and metastatic uterine cancer. Possible dehydration as part of fever cause? Creatinine has been better in the past. Currently at 3.5 to 3.8 for this hospitalization. No leukocytosis. Prior history of ESBL+ Pseudomonas and E.coli. Start with Meropenem IV for now. R/O sepsis. R/O UTI given patient's history. One dose of Vancomycin given. May need a dose of aminoglycoside. Supportive care. No complaints other than fevers at this time. Patient otherwise comfortable. Thank you for allowing me to participate in the care of the patient, we will follow with you.
[2018-10-21] MEDS: MEROPENEM 500 MG in NS 500 MG/50 ML BAG IVPB SCH (23:14)
[2018-10-22] MEDS: Sodium Chloride 0.9% 250 ML IV SCH ×2 (00:31→01:49)
--- NOTE | 2018-10-22 05:30 | CP.PCM.PCO ---
Addendum Addendum: 10/22/18 05:22 PGY1 House Doctor Note: Received page from Nurse Andriy at 21:22 regarding Patient's vitals. Stated she has a temperature, however he states also that the Patient's family is at bedside and would like to speak to a physician. Reviewed Patient's chart, and afterwards Patient was seen and evaluated at bedside. Physical exam was unremarkable. Patient without complaints. Patient with temperature of 105F prior to arrival. Patient was administered stat Tylenol and ice packs were placed immediately. Per Nurse, the cooling blanket was not working properly prior to my arrival, and settings were adjusted prior to my arrival. Cooling blanket appeared to be working upon my evaluation. Spoke to Patient's family. All concerns addressed and all questions were answered. Patient's PMD Dr. Pa was informed. Patient was re-evaluated an hour later, and temperature improved to 103. 500cc bolus NS was administered. Upon re-evaluation, the Patient's temperature improved to 99.1.
[2018-10-22] MEDS: Sodium Chloride 0.9% 1,000 ML IV SCH ×2 (05:32→21:40)
[2018-10-22 07:35] LABS: HEMOGLOBIN 9.8 g/dL (12.0-16.0); MEAN CELL VOLUME 93.6 fl (80.0-105.0); MEAN CORPUSCULAR HEMOGLOBIN 29.7 pg (25.0-35.0); MEAN CORPUSCULAR HGB CONC 31.7 g/dl (31.0-37.0); MEAN PLATELET VOLUME 9.3 fl (7.0-11.0); RBC 3.3 10^6/uL (3.5-6.1); RED CELL DISTRIBUTION WIDTH 14.5 % (11.5-14.5); WHITE BLOOD COUNT 11.1 10^3/uL (4.5-11.0)
[2018-10-22 07:50] LABS: CALCIUM 8.5 mg/dL (8.4-10.5)
[2018-10-22] MEDS: NIFEdipine 90 mg ER Tab PO SCH (09:26)
[2018-10-22] MEDS: MEROPENEM 500 MG in NS 500 MG/50 ML BAG IVPB SCH ×2 (09:31→21:37)
[2018-10-22] MEDS: AZO CRANBERRY PO SCH (09:36)
--- NOTE | 2018-10-22 16:13 | US ---
Date of service: 10/22/2018 PROCEDURE: Ultrasound of the Kidneys HISTORY: Hydronephrosis COMPARISON: Bilateral retrograde urography 08/30/2018. TECHNIQUE: Sonogram of the kidneys. FINDINGS: RIGHT KIDNEY: Measures: 11.9 x 6.7 x 6.5 cm. Right ureteral stent identified in renal pelvis with prominent hydronephrosis appreciable. No urolithiasis identified. No solid or cystic renal mass appreciable. Corticomedullary differentiation is limited could reflect intrinsic medical renal disease though some element of body habitus may be responsible. No perinephric fluid collection identified. LEFT KIDNEY: Measures: 11.0 x 5.6 x 5.8 cm. Left ureteral stent identified in renal pelvis with prominent hydronephrosis appreciable. No urolithiasis identified. No solid or cystic renal mass appreciable. Corticomedullary differentiation is limited could reflect intrinsic medical renal disease though some element of body habitus may be responsible. No perinephric fluid collection identified. OTHER FINDINGS: None. IMPRESSION: Persistent bilateral hydronephrosis with bilateral ureteral stents identified at the bilateral renal pelves.
--- NOTE | 2018-10-22 17:15 | CP.PCM.PN ---
Subjective - Date & Time of Evaluation Date of Evaluation: 10/22/18 Time of Evaluation: 14:00 - Subjective Subjective: Infectious Disease Follow Up: October 22, 2018 63 yo female with known history of metastatic uterine carcinoma. The patient was brought into [facility] for fevers of 102 F at home. Fevers up to 105 F in the past 24 hours. Came to ER on 10/20/2018 and sent home when UA and influenza testing was found to be negative. Mild leukocytosis now of 11.1. Fevers appear to have come down in the past 12 hours. Creatinine remains high. Objective - Vital Signs/Intake and Output Vital Signs (last 24 hours): Temp Pulse Resp BP Pulse Ox 99.6 F 73 20 98/53 L 98 10/22/18 16:00 10/22/18 14:00 10/22/18 14:00 10/22/18 14:00 10/22/18 14:00 Intake and Output: 10/22/18 10/22/18 06:59 18:59 Intake Total Output Total Balance - Medications Medications: Current Medications Acetaminophen (Tylenol 325mg Tab) 650 mg PO Q6H PRN PRN Reason: Fever >100.4 F Last Admin: 10/22/18 14:29 Dose: 650 mg Atorvastatin Calcium (Lipitor) 10 mg PO DIN [facility] Last Admin: 10/21/18 17:19 Dose: 10 mg Clonidine HCl (Catapres) 0.2 mg PO Q12 [facility] Last Admin: 10/22/18 09:26 Dose: 0.2 mg Doxazosin Mesylate (Cardura) 4 mg PO HS [facility] Last Admin: 10/21/18 23:13 Dose: 4 mg Ferrous Gluconate (Fergon) 324 mg PO DAILY [facility] Last Admin: 10/22/18 09:26 Dose: 324 mg Home Med (Home Med) 1 unit PO DAILY [facility] Last Admin: 10/22/18 09:36 Dose: Not Given Sodium Chloride (Sodium Chloride 0.9%) 1,000 mls @ 100 mls/hr IV .Q10H [facility] Last Admin: 10/22/18 05:32 Dose: 100 mls/hr Meropenem/Sodium Chloride (Merrem Iv 500 Mg/Ns 50 Ml) 500 mg in 50 mls @ 100 mls/hr IVPB Q12 [facility]; Protocol Last Admin: 10/22/18 09:31 Dose: 100 mls/hr Letrozole (Femara) 2.5 mg PO DAILY [facility] Last Admin: 10/22/18 09:48 Dose: 2.5 mg Metoprolol Tartrate (Lopressor) 50 mg PO BID [facility] Last Admin: 10/22/18 09:27 Dose: 50 mg Nifedipine (Procardia Xl) 90 mg PO DAILY [facility] Last Admin: 10/22/18 09:26 Dose: 90 mg Oxybutynin Chloride (Ditropan Tab) 5 mg PO BID [facility] Tramadol/Acetaminophen (Ultracet 37.5/325 Mg) 1 tab PO Q6H PRN PRN Reason: Pain, moderate (4-7) - Labs Labs: 10/22/18 07:00 10/22/18 07:00 - Constitutional Appears: Non-toxic, No Acute Distress, Chronically Ill - Head Exam Head Exam: ATRAUMATIC, NORMOCEPHALIC - Eye Exam Eye Exam: EOMI, PERRL Pupil Exam: NORMAL ACCOMODATION, PERRL - ENT Exam ENT Exam: Mucous Membranes Moist, Normal External Ear Exam, TM's Normal Bilaterally - Neck Exam Neck Exam: Full ROM, Normal Inspection - Respiratory Exam Respiratory Exam: Clear to Ausculation Bilateral, NORMAL BREATHING PATTERN. absent: Rales, Rhonchi, Wheezes - Cardiovascular Exam Cardiovascular Exam: REGULAR RHYTHM, RRR, +S1, +S2 - GI/Abdominal Exam GI & Abdominal Exam: Soft, Normal Bowel Sounds. absent: Distended, Tenderness - Extremities Exam Extremities Exam: Full ROM, Normal Inspection - Neurological Exam Neurological Exam: Alert, Awake, CN II-XII Intact, Oriented x3 - Psychiatric Exam Psychiatric exam: Normal Affect, Normal Mood - Skin Skin Exam: Intact, Normal Color Assessment and Plan - Assessment and Plan (Free Text) Assessment: 63 yo female well known to me presenting for fevers up to 104 F. History of frequent UTI and metastatic uterine cancer. Possible dehydration as part of fever cause? Creatinine has been better in the past. Currently at 3.5 to 3.8 for this hospitalization. Mild leukocytosis. Urine cultures with gram negative nick growth. Prior history of ESBL+ Pseudomonas and E.coli. Start with Meropenem IV for now. R/O sepsis. R/O UTI given patient's history. One dose of Vancomycin given. May need a dose of aminoglycoside. Will give one dose of Gentamicin. Monitor creatinine. Supportive care. No complaints other than fevers at this time. Patient otherwise comfortable. Thank you for allowing me to participate in the care of the patient, we will follow with you.
--- NOTE | 2018-10-22 17:47 | PN ---
DATE: 10/22/2018 SUBJECTIVE: This 63-year-old female was examined at her bedside on the afternoon of 10/22/2018. Present for this interview was her nurse, Lary as well as nurse, Keily Rahman and her , Joe. The patient was admitted with newly noted fever at home, and review of her medical records showed that she did have a spike in her temperature last evening to 105, which was treated with Tylenol, IV fluids, and a cooling blanket. At present, her temperature has improved to 99.5, and the patient is awaiting transport for renal ultrasound. The patient was out of bed to chair. She was alert and oriented, stated she had a poor p.o. appetite, but was encouraged to eat food from home and drink fluids. OBJECTIVE: At present on physical exam: VITAL SIGNS: Temperature 99.5, respirations 20, pulse 105 and blood pressure 130/63 with a pulse ox of 99% on room air. HEENT: Head, normocephalic, atraumatic. Eyes, no icterus. Ears clear. Throat, noninjected. NECK: Supple. Heart: Regular S1, S2. LUNGS: Clear. ABDOMEN: Obese, nontender. No rebound, no guarding. No tenderness. No CVA tenderness. EXTREMITIES: No edema. SKIN: Without rash. NEUROLOGICAL: Intact. PSYCHOLOGICAL: Alert. VASCULAR: Legs warm to touch. LABORATORY DATA: White count 11,100, hemoglobin 9.8, hematocrit 30.9, MCV 93.6, and platelets 250,000. Sodium 138, K 4, chloride 108, bicarb 18, BUN 51, and creatinine 3.6. Estimated GFR 13 mL per minute with a glucose of 154 and calcium of 8.5. Group A beta-hemolytic strep of her throat was negative. IMPRESSION: A 63-year-old female with urosepsis. Review of microbiology, urine sampling is showing a gram-negative nick with sensitivity and identification to follow with comorbidities of intermittent fever spikes, chronic hypertension, obesity, metastatic uterine cancer stage IV, history of bilateral hydronephrosis with chronic urinary tract stents replaced on schedule by Dr. Yadiel Weinberg from Urology; with anemia of chronic disease, iron-deficiency anemia component, hyperlipidemia, chronic hypertension, degenerative arthritis. PLAN: At present is to continue Cardura 4 mg p.o. h.s., clonidine 0.2 mg p.o. every 12 hours, Ditropan 5 mg p.o. b.i.d., Femara 2.5 mg p.o. daily, ferrous gluconate 324 mg p.o. daily, Lipitor 10 mg p.o. daily, Lopressor 50 mg b.i.d., meropenem 50 mg IV every 12 hours, Procardia XL 90 mg p.o. daily, 0.9 saline at 100 mL/hour, Tylenol 650 p.o. every 6 hours. p.r.n. pain or temperature greater than 101 and Ultracet 1 tablet p.o. every 6 hours p.r.n. severe pain. She is ordered to have a basic metabolic panel and CBC in the a.m. I am awaiting her blood and urine culture reports for identification and sensitivity. She is ordered to have a renal ultrasound, a heart-healthy diet with a 60 g protein restriction. She remains on isolation, and I have instructed the nurses to apply a cooling blanket for any temperature that persists in excess of [address] Nilesh Lloyd for further orders regarding any temperature spikes. Based on her clinical progress, additional diagnostic workup and testing will be entertained. Greater than 35 minutes was spent in today's management of the patient including discussion with her family at the bedside with nursing. All questions were answered. Luisa Pa MD [facility]
--- NOTE | 2018-10-22 21:20 | HP ---
DATE OF EXAM: 10/21/2018 HISTORY OF PRESENT ILLNESS: This 63-year-old female was examined in the [facility] ER on the afternoon of 10/21/2018. Present for the interview was her , Joe and her emergency room nurse. The patient had been in the emergency room late last evening and was sent home by emergency room physicians after evaluation of purported fever. In the emergency room last night, she was not noted to have a fever or elevated white blood cell count. Cultures were drawn and the patient was sent home, advised to take Tylenol for any low grade temperature; however, today she became more deconditioned with elevated fevers at home and family brought her back for evaluation. At the time of my interview of this patient in the emergency room, she had a temperature of 99.1 and was feeling weak and deconditioned. PAST MEDICAL HISTORY: The patient's past medical history is significant for metastatic stage IV uterine cancer with bilateral hydronephrosis, ureteral stents, and chronic renal failure stage IV. The patient is followed by Dr. Yadiel Weinberg from Urology regarding her urological issues and the patient denied any dysuria. OUTPATIENT MEDICATIONS: Included clonidine p.r.n., Ultracet for severe pain, Ditropan, Procardia XL, Lopressor, Femara, Fergon, Pepcid, Cardura, cranberry tablets, and Lipitor. ALLERGIES: THE PATIENT HAS NO KNOWN ALLERGIES TO MEDICATION. FAMILY HISTORY: Noncontributory. SOCIAL HISTORY: She is a nondrinker, nonsmoker, non IV drug misuser. She is a retired homemaker. She is followed by Kathy Coffman MD at the [facility] in [place], [place]. REVIEW OF SYSTEMS: Constitutional: The patient now has intermittent fevers at home with no reports of chills. Head: No head headache or seizures. Eyes: No change in visual acuity. Ear: No hearing loss. Throat: No swallowing difficulty. Neck: No stiffness. Cardiac: Chronic hypertension. Pulmonary: No cough. No hemoptysis. Gastrointestinal: No hematemesis. No melena. No diarrhea. No vomiting. Genitourinary: She denied dysuria. Skin: No rash. Vascular: No claudication. Psychological: Able to answer all questions appropriately. Neurological: No knowledge of stroke. PHYSICAL EXAMINATION VITAL SIGNS: At the time of my evaluation temperature was 99.1, respirations 18, pulse 71 and blood pressure 105/54 with a pulse ox of 95% room air. HEENT: Head normocephalic, atraumatic. Eyes; no icterus. Ears; clear. Throat; noninjected. NECK: Supple. CARDIOPULMONARY: Heart was regular S1, S2. LUNGS: Clear. ABDOMEN: Obese, nontender. No palpable organomegaly. No rebound. No guarding. No tenderness. EXTREMITIES: No edema. SKIN: No rash. No ulcerations. VASCULAR: Legs warm to touch. PSYCHOLOGICAL: Alert and oriented x3. NEUROLOGIC: Grossly intact. LABORATORY DATA: White count 10,400, hemoglobin 9.7, hematocrit 30.2, platelets 241,000. Sodium 136, potassium 3.8, chloride 109, bicarb 16, BUN 49, creatinine 3.8, random blood sugar 213, calcium 9.0. Magnesium 2.1. Bilirubin 0.5, AST 19, ALT 10, alk phos 68, albumin 3.4. Urinalysis showed moderate leukocyte esterase, too numerous to count rbc's and wbc's, and large bacteria. Group A beta hemolytic strep was negative. Chest x-ray from her emergency room visit on the evening of 10/20/2018 was reviewed. It showed inspiratory effort was diminished but no definite infiltrates bilaterally. There were no significant pleural effusions noted. There was no pneumothorax apparent and no interval acute cardiopulmonary disease was appreciated. IMPRESSION: A 63-year-old female with history of urosepsis in her past with resistant organisms in the past including history of including history of Pseudomonas aeruginosa sensitive to meropenem, history of chronic renal failure stage IV, metastatic stage IV uterine cancer, history of bilateral ureteral stents because of obstructive uropathy, chronic hypertension, anemia of chronic disease, hyperlipidemia, degenerative arthritis. PLAN: The plan at present is to admit this patient, fully culture her blood and urine, start her on IV fluids, check a renal ultrasound and obtain a consultation with Dr. Nilesh Lloyd from Infectious Disease. Stat doses of meropenem and vancomycin have been ordered. She will continue on medication from home as outlined. Based on clinical progress, additional diagnostic workup and testing will be entertained. Greater than 75 minutes was spent in the care management, review of labs, orders and x-rays and discussion of this patient with herself, her at the bedside, her family and nursing. All questions were answered. Luisa Pa MD KEO
[2018-10-23 07:35] LABS: HEMOGLOBIN 8.6 g/dL (12.0-16.0); MEAN CELL VOLUME 91.6 fl (80.0-105.0); MEAN CORPUSCULAR HGB CONC 31.6 g/dl (31.0-37.0); MEAN PLATELET VOLUME 8.7 fl (7.0-11.0); RBC 2.97 10^6/uL (3.5-6.1); RED CELL DISTRIBUTION WIDTH 14.4 % (11.5-14.5); WHITE BLOOD COUNT 4.4 10^3/uL (4.5-11.0)
[2018-10-23 07:51] LABS: CALCIUM 8.3 mg/dL (8.4-10.5)
[2018-10-23] MEDS: NIFEdipine 90 mg ER Tab PO SCH (10:08)
[2018-10-23] MEDS: Nystatin 100,000 Units/gm Topical Pow(15 gm) TOP SCH ×2 (10:09→19:19)
[2018-10-23] MEDS: MEROPENEM 500 MG in NS 500 MG/50 ML BAG IVPB SCH ×2 (10:09→22:32)
[2018-10-23] MEDS ORDERED: Sodium Chloride 0.9% 1,000 ML IV SCH ×2 (11:40→19:43)
--- NOTE | 2018-10-23 14:42 | CT ---
Date of service: 10/23/2018 PROCEDURE: CT Abdomen and Pelvis without intravenous contrast HISTORY: r/o abdominal infection COMPARISON: 02/06/2018 TECHNIQUE: Technique. Contrast dose: Radiation dose: Total exam DLP = 1433.32 mGy-cm. This CT exam was performed using one or more of the following dose reduction techniques: Automated exposure control, adjustment of the mA and/or kV according to patient size, and/or use of iterative reconstruction technique. FINDINGS: LOWER THORAX: Minimal pericardial effusion. Small right pleural effusion and minimal pleural thickening at the right base. LIVER: Unremarkable. No gross lesion or ductal dilatation. GALLBLADDER AND BILE DUCTS: Cholecystectomy. PANCREAS: Unremarkable. No gross lesion or ductal dilatation. SPLEEN: Unremarkable. ADRENALS: Unremarkable. No mass. KIDNEYS AND URETERS: Redemonstration of bilateral ureteral stents and hydroureteronephrosis. VASCULATURE: Unremarkable. No aortic aneurysm. No aortic atherosclerotic calcification or mural plaque present. BOWEL: Unremarkable. No obstruction. No gross mural thickening. APPENDIX: Unremarkable. Normal appendix. PERITONEUM: Unremarkable. No free fluid. No free air. LYMPH NODES: Unremarkable. No enlarged lymph nodes. BLADDER: Unremarkable. REPRODUCTIVE: Unremarkable. BONES: No acute fracture. OTHER FINDINGS: None. IMPRESSION: Redemonstration of bilateral ureteral stents and hydroureteronephrosis. Small right pleural effusion and pericardial effusion.
[2018-10-23] MEDS: AZO CRANBERRY PO SCH (17:37)
[2018-10-23] MEDS ORDERED: Sodium Chloride 0.9% 250 ML IV STA (17:55)
[2018-10-23] MEDS ORDERED: Sodium Chloride 0.9% 250 ML IV SCH (18:00)
--- NOTE | 2018-10-23 18:12 | PN ---
DATE: 10/23/2018 SUBJECTIVE: This 63-year-old female was examined at her bedside on the morning of 10/23/2018 in the presence of her , Joe and nurse Gene. The patient at present has a temperature of 100.1. She is on a cooling blanket. She received one dose of amikacin 500 mg yesterday in addition to meropenem 500 mg IV every 12 hours. Her urine cultures are growing Klebsiella pneumoniae sensitive to meropenem and blood cultures are pending at present. PHYSICAL EXAMINATION: GENERAL: The patient is alert, complaining of insomnia and weakness. VITAL SIGNS: Temperature was 100.1, respirations 20, pulse 82 and blood pressure 136/82 with pulse ox 95% on room air. HEENT: Head normocephalic, atraumatic. Eyes: No icterus. Ears: Clear. Throat: Noninjected. NECK: Supple. HEART: With S1, S2, regular. LUNGS: Clear. ABDOMEN: Soft. EXTREMITIES: No edema. SKIN: Without rash. NEUROLOGICAL: Deconditioned. VASCULAR: Legs warm to touch. PSYCHOLOGICAL: Alert and oriented x3. LABORATORY DATA: White count 4400, hemoglobin 8.6, hematocrit 27.2, platelets 209,000. Sodium 137, K 3.4, chloride 112, bicarb 16, BUN 47, creatinine 3.4, random blood sugar 116 with a calcium of 8.3. IMPRESSION: This is a 63-year-old female with urinary tract infection and urosepsis secondary to Klebsiella pneumoniae in the setting of chronic renal failure stage IV and history of metastatic uterine cancer stage IV causing bilateral obstructive uropathy. A renal ultrasound dated 10/21/2018 was reviewed which shows bilateral hydronephrosis with bilateral ureteral stents identified at her renal pelvises. I did review this finding with Dr. Yadiel Weinberg who is now on consoles and will be scheduling the patient for cystoscopy and changing of her bilateral ureteral stents. Her dknkw-hp-[id number] anemia is probably in the setting of rehydration and the patient will be treated for hypokalemia. PLAN: At present the plan is to continue, Ambien 5 mg p.o. at bedtime p.r.n. insomnia, Cardura 4 mg p.o. at bedtime, clonidine 0.2 mg p.o. b.i.d., Ditropan 5 mg p.o. b.i.d., Femara 2.5 mg p.o. daily, ferrous gluconate 324 mg p.o. daily, Lipitor with 10 mg p.o. at dinner time, Lopressor 50 mg b.i.d., meropenem 500 mg IV every 12 hours, potassium chloride 20 mEq and 100 mL of 0.9 saline at 70 mL/hour IV piggyback over 2 hours x2 doses, Procardia XL 90 mg p.o. daily, the patient will continue on Tylenol 650 p.o. every 6 hours p.r.n. temperature greater than 101, cooling blanket for any temperature that persists greater than 101. Also the patient is scheduled to have heart-healthy diet, isolation precautions and will be scheduled for physical therapy for reconditioning and gait training. I have asked the nursing staff to obtain a stool for occult blood, repeat basic metabolic panel and CBC in the a.m. and based on clinical progress, additional diagnostic workup and testing will be entertained. Greater than 35 minutes was spent in the care management, review of meds, adjustment of orders and discussion of this patient with her at the bedside and her nurse as well as with Dr. Weinberg and Dr. Lloyd. All questions were answered. Luisa Pa MD
--- NOTE | 2018-10-23 21:27 | CP.PCM.PN ---
Subjective - Date & Time of Evaluation Date of Evaluation: 10/23/18 Time of Evaluation: 19:00 - Subjective Subjective: Infectious Disease Follow Up: October 23, 2018 63 yo female with known history of metastatic uterine carcinoma. The patient was brought into [facility] for fevers of 102 F at home. Fevers up to 105 F in the past 24 hours. Came to ER on 10/20/2018 and sent home when UA and influenza testing was found to be negative. Mild leukocytosis now of 11.1. Fevers appear to have come down but the patient is still having fevers up to 100.9 F. Creatinine remains high at 3.8. CT abd/pelvis didn't show any new findings. Objective - Vital Signs/Intake and Output Vital Signs (last 24 hours): Temp Pulse Resp BP Pulse Ox 99.9 F H 71 20 93/48 L 95 10/23/18 18:32 10/23/18 17:32 10/23/18 06:00 10/23/18 17:32 10/23/18 06:00 - Medications Medications: Current Medications Acetaminophen (Tylenol 325mg Tab) 650 mg PO Q6H PRN PRN Reason: Fever >100.4 F Last Admin: 10/23/18 17:32 Dose: 650 mg Atorvastatin Calcium (Lipitor) 10 mg PO DIN [facility] Last Admin: 10/23/18 17:23 Dose: 10 mg Clonidine HCl (Catapres) 0.2 mg PO Q12 [facility] Last Admin: 10/23/18 10:08 Dose: 0.2 mg Doxazosin Mesylate (Cardura) 4 mg PO HS [facility] Last Admin: 10/22/18 21:39 Dose: 4 mg Ferrous Gluconate (Fergon) 324 mg PO DAILY [facility] Last Admin: 10/23/18 10:08 Dose: 324 mg Home Med (Home Med) 1 unit PO DAILY [facility] Last Admin: 10/23/18 17:37 Dose: Not Given Meropenem/Sodium Chloride (Merrem Iv 500 Mg/Ns 50 Ml) 500 mg in 50 mls @ 100 mls/hr IVPB Q12 [facility]; Protocol Last Admin: 10/23/18 10:09 Dose: 100 mls/hr Sodium Chloride (Sodium Chloride 0.9%) 250 mls @ 250 mls/hr IV .Q1H [facility] Last Admin: 10/23/18 19:17 Dose: 250 mls/hr Sodium Chloride (Sodium Chloride 0.9%) 1,000 mls @ 40 mls/hr IV .Q24H [facility] Letrozole (Femara) 2.5 mg PO DAILY [facility] Last Admin: 10/23/18 10:35 Dose: 2.5 mg Metoprolol Tartrate (Lopressor) 50 mg PO BID [facility] Last Admin: 10/23/18 17:32 Dose: Not Given Nifedipine (Procardia Xl) 90 mg PO DAILY [facility] Last Admin: 10/23/18 10:08 Dose: 90 mg Nystatin (Nystop Topical Powder) 1 gm TOP BID [facility] Last Admin: 10/23/18 19:19 Dose: 1 applic Oxybutynin Chloride (Ditropan Tab) 5 mg PO BID [facility] Last Admin: 10/23/18 17:23 Dose: 5 mg Tramadol/Acetaminophen (Ultracet 37.5/325 Mg) 1 tab PO Q6H PRN PRN Reason: Pain, moderate (4-7) Zolpidem Tartrate (Ambien) 5 mg PO HS PRN PRN Reason: Insomnia - Labs Labs: 10/23/18 07:00 10/23/18 07:00 - Constitutional Appears: Non-toxic, No Acute Distress, Chronically Ill - Head Exam Head Exam: ATRAUMATIC, NORMOCEPHALIC - Eye Exam Eye Exam: EOMI, PERRL Pupil Exam: NORMAL ACCOMODATION, PERRL - ENT Exam ENT Exam: Mucous Membranes Moist, Normal External Ear Exam, TM's Normal Bilaterally - Neck Exam Neck Exam: Full ROM, Normal Inspection - Respiratory Exam Respiratory Exam: Clear to Ausculation Bilateral, NORMAL BREATHING PATTERN. absent: Rales, Rhonchi, Wheezes - Cardiovascular Exam Cardiovascular Exam: REGULAR RHYTHM, RRR, +S1, +S2 - GI/Abdominal Exam GI & Abdominal Exam: Soft, Normal Bowel Sounds. absent: Distended, Tenderness - Extremities Exam Extremities Exam: Full ROM, Normal Inspection - Neurological Exam Neurological Exam: Alert, Awake, CN II-XII Intact, Oriented x3 - Psychiatric Exam Psychiatric exam: Normal Affect, Normal Mood - Skin Skin Exam: Intact, Normal Color Assessment and Plan - Assessment and Plan (Free Text) Assessment: 63 yo female well known to me presenting for fevers up to 104 F. History of frequent UTI and metastatic uterine cancer. Possible dehydration as part of fever cause? Creatinine has been better in the past. Currently at 3.5 to 3.8 for this hospitalization. Mild leukocytosis. Urine cultures with gram negative nick growth. Prior history of ESBL+ Pseudomonas and E.coli. Start with Meropenem IV for now. R/O sepsis. R/O UTI given patient's history. One dose of Vancomycin given. May need a dose of aminoglycoside. Will give one dose of Gentamicin. Monitor creatinine. Supportive care. No complaints other than fevers at this time. Patient otherwise comfortable. Limited options given the patient's renal function. Continue meropenem. Thank you for allowing me to participate in the care of the patient, we will follow with you.
[2018-10-24 07:23] LABS: HEMOGLOBIN 9.7 g/dL (12.0-16.0); MEAN CELL VOLUME 91.8 fl (80.0-105.0); MEAN CORPUSCULAR HEMOGLOBIN 29.3 pg (25.0-35.0); MEAN CORPUSCULAR HGB CONC 31.9 g/dl (31.0-37.0); MEAN PLATELET VOLUME 8.8 fl (7.0-11.0); RBC 3.31 10^6/uL (3.5-6.1); RED CELL DISTRIBUTION WIDTH 14.4 % (11.5-14.5); WHITE BLOOD COUNT 2.7 10^3/uL (4.5-11.0)
[2018-10-24 07:48] LABS: CALCIUM 8.7 mg/dL (8.4-10.5)
--- NOTE | 2018-10-24 08:18 | CT ---
Date of service: 10/23/2018 PROCEDURE: CT HEAD WITHOUT CONTRAST. HISTORY: confusion COMPARISON: Comparison is made with the previous study dated 02/06/2018 TECHNIQUE: Axial computed tomography images were obtained through the head/brain without intravenous contrast. Radiation dose: Total exam DLP = 1559.68 mGy-cm. This CT exam was performed using one or more of the following dose reduction techniques: Automated exposure control, adjustment of the mA and/or kV according to patient size, and/or use of iterative reconstruction technique. FINDINGS: HEMORRHAGE: No intracranial hemorrhage. BRAIN: No mass effect or edema. Mild atrophy and [id number] chronic microvascular white matter ischemic disease are again noted. Again noted is 5 millimeter encephalomalacia at the left basal ganglia coronal radiata likely represent old lacunar infarct VENTRICLES: Unremarkable. No hydrocephalus. CALVARIUM: Unremarkable. PARANASAL SINUSES: Mild mucosal thickening noted in the ethmoid and maxillary sinuses. MASTOID AIR CELLS: Unremarkable as visualized. No inflammatory changes. OTHER FINDINGS: None. IMPRESSION: No evidence of acute intracranial hemorrhage territorial infarction mass effect or midline shift. Mild atrophy and chronic microvascular ischemic disease. Sub centimeter encephalomalacia at the left basal ganglia/coronal radiata likely represent chronic lacunar infarct. Preliminary report was submitted by [facility] Radiology contains concordant findings.
--- NOTE | 2018-10-24 09:35 | RAD ---
Date of service: 10/23/2018 HISTORY: CHF COMPARISON: 10/20/2018. TECHNIQUE: Chest PA and lateral FINDINGS: LINES AND TUBES: None. LUNG AND PLEURA: The lungs are well inflated. There is interval development of discoid atelectasis in the right lower lobe. No pleural effusion or pneumothorax. HEART AND MEDIASTINUM: There is mild cardiomegaly. Mild aortic atherosclerotic calcifications present. The hilar and mediastinal contours are within normal limits. SKELETAL STRUCTURES: The bony structures are within normal limits for the patient's age. VISUALIZED UPPER ABDOMEN: Normal. OTHER FINDINGS: None. IMPRESSION: Interval development of discoid atelectasis in the right lower lobe. No other significant interval change.
[2018-10-24] MEDS: MEROPENEM 500 MG in NS 500 MG/50 ML BAG IVPB SCH ×2 (11:20→21:54)
[2018-10-24] MEDS: NIFEdipine 90 mg ER Tab PO SCH (11:22)
[2018-10-24] MEDS: Nystatin 100,000 Units/gm Topical Pow(15 gm) TOP SCH ×2 (11:55→17:15)
[2018-10-24] MEDS: AZO CRANBERRY PO SCH (12:06)
--- NOTE | 2018-10-24 17:10 | CARD ---
APPROVED REPORT Date of service: 10/24/2018 EKG Measurement Heart [id number] <Conclusion> Normal sinus rhythm Right bundle branch block Left anterior fascicular block Bifascicular block Abnormal ECG
--- NOTE | 2018-10-24 18:17 | CP.PCM.PN ---
Subjective - Date & Time of Evaluation Date of Evaluation: 10/24/18 Time of Evaluation: 15:30 - Subjective Subjective: Infectious Disease Follow Up: October 24, 2018 63 yo female with known history of metastatic uterine carcinoma. The patient was brought into [facility] [place] fevers of 102 F at home. Fevers up to 105 F in the past 24 hours. Came to ER on 10/20/2018 and sent home when UA and influenza testing was found to be negative. Mild leukocytosis now of 11.1. Fevers appear to have come down but the patient is still having fevers bordering around 100.2 F. Creatinine remains high at 2.9. CT abd/pelvis didn't show any new findings. CT Head showing Mild atrophy and chronic microvascular ischemic disease with sub centimeter encephalomalacia at the left basal gnglia/coronal radiata likely representing chronic lacunar infarct. Creatinine slightly improving. Objective - Vital Signs/Intake and Output Vital Signs (last 24 hours): Temp Pulse Resp BP Pulse Ox 98.7 F 63 20 138/65 96 10/24/18 16:00 10/24/18 16:00 10/24/18 16:00 10/24/18 17:15 10/24/18 16:00 Intake and Output: 10/24/18 10/24/18 06:59 18:59 Intake Total 400 Output Total 501 Balance -101 - Medications Medications: Current Medications Acetaminophen (Tylenol 325mg Tab) 650 mg PO Q6H PRN PRN Reason: Fever >100.4 F Last Admin: 10/24/18 06:12 Dose: 650 mg Atorvastatin Calcium (Lipitor) 10 mg PO DIN [facility] Last Admin: 10/24/18 17:15 Dose: 10 mg Clonidine HCl (Catapres) 0.2 mg PO Q12 [facility] Last Admin: 10/24/18 11:22 Dose: 0.2 mg Doxazosin Mesylate (Cardura) 4 mg PO HS [facility] Last Admin: 10/23/18 22:31 Dose: 4 mg Ferrous Gluconate (Fergon) 324 mg PO DAILY [facility] Last Admin: 10/24/18 11:19 Dose: 324 mg Home Med (Home Med) 1 unit PO DAILY [facility] Last Admin: 10/24/18 12:06 Dose: Not Given Meropenem/Sodium Chloride (Merrem Iv 500 Mg/Ns 50 Ml) 500 mg in 50 mls @ 100 mls/hr IVPB Q12 [facility]; Protocol Last Admin: 10/24/18 11:20 Dose: 100 mls/hr Sodium Chloride (Sodium Chloride 0.9%) 250 mls @ 250 mls/hr IV .Q1H [facility] Last Admin: 10/23/18 19:17 Dose: 250 mls/hr Sodium Chloride (Sodium Chloride 0.9%) 1,000 mls @ 40 mls/hr IV .Q24H [facility] Last Admin: 10/23/18 22:33 Dose: 40 mls/hr Letrozole (Femara) 2.5 mg PO DAILY [facility] Last Admin: 10/24/18 11:53 Dose: 2.5 mg Metoprolol Tartrate (Lopressor) 50 mg PO BID [facility] Last Admin: 10/24/18 17:15 Dose: 50 mg Nifedipine (Procardia Xl) 90 mg PO DAILY [facility] Last Admin: 10/24/18 11:22 Dose: 90 mg Nystatin (Nystop Topical Powder) 1 gm TOP BID [facility] Last Admin: 10/24/18 17:15 Dose: 1 applic Oxybutynin Chloride (Ditropan Tab) 5 mg PO BID [facility] Last Admin: 10/24/18 17:15 Dose: 5 mg Tramadol/Acetaminophen (Ultracet 37.5/325 Mg) 1 tab PO Q6H PRN PRN Reason: Pain, moderate (4-7) Zolpidem Tartrate (Ambien) 5 mg PO HS PRN PRN Reason: Insomnia - Labs Labs: 10/24/18 07:00 10/24/18 07:00 - Constitutional Appears: Non-toxic, No Acute Distress, Chronically Ill - Head Exam Head Exam: ATRAUMATIC, NORMOCEPHALIC - Eye Exam Eye Exam: EOMI, PERRL Pupil Exam: NORMAL ACCOMODATION, PERRL - ENT Exam ENT Exam: Mucous Membranes Moist, Normal External Ear Exam, TM's Normal Bilaterally - Neck Exam Neck Exam: Full ROM, Normal Inspection - Respiratory Exam Respiratory Exam: Clear to Ausculation Bilateral, NORMAL BREATHING PATTERN. absent: Rales, Rhonchi, Wheezes - Cardiovascular Exam Cardiovascular Exam: REGULAR RHYTHM, RRR, +S1, +S2 - GI/Abdominal Exam GI & Abdominal Exam: Soft, Normal Bowel Sounds. absent: Distended, Tenderness - Extremities Exam Extremities Exam: Full ROM, Normal Inspection - Neurological Exam Neurological Exam: Alert, Awake, CN II-XII Intact, Oriented x3 - Psychiatric Exam Psychiatric exam: Normal Affect, Normal Mood - Skin Skin Exam: Intact, Normal Color Assessment and Plan - Assessment and Plan (Free Text) Assessment: 63 yo female well known to me presenting for fevers up to 104 F. History of frequent UTI and metastatic uterine cancer. Possible dehydration as part of fever cause? Creatinine has been better in the past. As high as 3.5 to 3.8 for this hospitalization. Mild leukocytosis. Urine cultures with gram negative nick growth. Prior history of ESBL+ Pseudomonas and E.coli. Start with Meropenem IV for now. R/O sepsis. R/O UTI given patient's history. One dose of Vancomycin given. May need a dose of aminoglycoside. Will give one dose of Gentamicin. Monitor creatinine. Supportive care. No complaints other than fevers at this time. Patient otherwise comfortable. Limited options given the patient's renal function. Continue meropenem. Creatinine improving to 2.9. Fevers appear to be downt rending. Thank you for allowing me to participate in the care of the patient, we will follow with you.
[2018-10-25] MEDS ORDERED: Nitroglycerin 2% Ointment Foilpak UD TOP PRN (01:07)
[2018-10-25 07:39] LABS: HEMOGLOBIN 9.4 g/dL (12.0-16.0); MEAN CELL VOLUME 93.4 fl (80.0-105.0); MEAN CORPUSCULAR HEMOGLOBIN 29.5 pg (25.0-35.0); MEAN CORPUSCULAR HGB CONC 31.5 g/dl (31.0-37.0); MEAN PLATELET VOLUME 8.8 fl (7.0-11.0); RBC 3.19 10^6/uL (3.5-6.1); RED CELL DISTRIBUTION WIDTH 14.5 % (11.5-14.5); WHITE BLOOD COUNT 3.5 10^3/uL (4.5-11.0)
[2018-10-25 08:16] LABS: CALCIUM 8.5 mg/dL (8.4-10.5)
[2018-10-25 09:06] VITALS: RESP 18; TEMP 98; O2SAT 96
[2018-10-25] MEDS ORDERED: NIFEdipine 60 mg ER Tab PO SCH (09:20)
[2018-10-25] MEDS: MEROPENEM 500 MG in NS 500 MG/50 ML BAG IVPB SCH (09:54)
[2018-10-25] MEDS: AZO CRANBERRY PO SCH (09:54)
[2018-10-25] MEDS: Nystatin 100,000 Units/gm Topical Pow(15 gm) TOP SCH (09:55)
--- NOTE | 2018-10-25 10:08 | PCM.URO ---
Urology Progress Note - Objective Lab Studies: Reviewed (will change stents when medically cleared and cleared by ID?DR PEÑA) Lab Results Last 24 Hours: Laboratory Results - last 24 hr 10/25/18 10/25/18 07:10 07:10 WBC 3.5 L D RBC 3.19 L Hgb 9.4 L Hct 29.8 L MCV 93.4 MCH 29.5 MCHC 31.5 RDW 14.5 Plt Count 227 MPV 8.8 Sodium 138 Potassium 4.1 Chloride 111 H Carbon Dioxide 20 L Anion Gap 11 BUN 39 H Creatinine 2.8 H Est GFR ( Amer) 21 Est GFR (Non-Af Amer) 17 Random Glucose 101 Calcium 8.5 Intake & Output: Intake & Output 10/24/18 10/25/18 10/25/18 18:59 06:59 18:59 Intake Total 400 240 Output Total 501 2000 Balance -101 -1760 Intake: Oral 400 240 Output: Urine 500 2000 Urine, Voided 500 2000 Stool 0 Urine/Stool Mix 1 Other: # Voids Urine, Voided 1 # Bowel Movements 1 Vital Signs: Vital Signs - 24 hr 10/24/18 10/24/18 10/24/18 11:19 11:22 16:00 Temperature 98.7 F Pulse Rate 71 63 Respiratory 20 Rate Blood Pressure 135/74 135/74 128/61 O2 Sat by Pulse 96 Oximetry 10/24/18 10/24/18 10/24/18 17:15 21:52 22:42 Temperature 98.4 F Pulse Rate 68 68 Respiratory 19 Rate Blood Pressure 138/65 170/84 H 170/84 H O2 Sat by Pulse 97 Oximetry 10/25/18 06:00 Temperature 98.0 F Pulse Rate 62 Respiratory 18 Rate Blood Pressure 161/72 H O2 Sat by Pulse 96 Oximetry
[2018-10-25 10:27] VITALS: BP 139/91; PULSE 110
--- NOTE | 2018-10-25 11:27 | CP.PCM.PCO ---
Physician Communication Note - Physician Communication Note Physician Communication Note: D/W Dr. Weinberg, pt will be scheduled for stent change 10/30.
--- NOTE | 2018-10-25 12:54 | PN ---
DATE: 10/24/2018 SUBJECTIVE: This 63-year-old female was examined at her bedside on the morning of 10/24/2018. Her , Joe, was present for this interview and this case was reviewed in detail with Darline Kong, registered nurse. The patient is running low-grade fevers. She denies any chest pain, cough or shortness of breath. PHYSICAL EXAMINATION: VITAL SIGNS: Temperature 100.2, respirations 20, pulse 93 and blood pressure 140/76. Pulse ox 99%. HEAD: Normocephalic, atraumatic. EYES: No icterus. EARS: Clear. THROAT: Noninjected. NECK: Supple. HEART: S1, S2. LUNGS: Clear. ABDOMEN: Soft. EXTREMITIES: No edema. SKIN: Without rash. NEUROLOGIC: Intact, but deconditioned. VASCULAR: Legs warm to touch. LABORATORY DATA: White count 2700, hemoglobin 9.7, hematocrit 30.4, platelets 232,000. Sodium 138, K 4.1, chloride 113, bicarb 15, BUN 40, creatinine 2.9. Estimated GFR 16 mL per minute with a sugar of 114 and a calcium of 8.7. Stool for occult blood was negative. Group A beta hemolytic strep was negative. DIAGNOSTIC DATA: Chest x-ray was reviewed and showed discoid atelectasis in the right lower lobe, no pleural effusion, no infiltrate and no pneumothorax. Abdominal pelvic CT was reviewed. It showed bilateral ureteral stents with small right pleural effusion. Head CT was reviewed. It showed no evidence of acute hemorrhage or stroke, but mild atrophy and encephalomalacia of the left basal ganglia, coronal radiata secondary to chronic lacunar infarct. IMPRESSION: This is a 63-year-old female with Klebsiella pneumoniae, urinary tract infection and urosepsis with metabolic encephalopathy, history of stage IV metastatic uterine cancer, chronic insomnia, chronic deconditioning, chronic hypertension, bilateral ureteral stents. Maintaining the patient at chronic renal failure stage IV, anemia of chronic disease, iron-deficiency anemia, hyperlipidemia, degenerative arthritis. PLAN: The plan at present is to continue meropenem 500 mg IV every 12 hours, 0.9 saline at 40 mL/hour, Procardia XL 90 mg p.o. daily, nitroglycerin 1 inch to chest wall every 4 hours p.r.n. accelerated hypertension if systolic blood pressure greater than 160 or diastolic blood pressure greater than 100. She continues on Lopressor 50 mg b.i.d., Lipitor 10 mg p.o. daily, Fergon 324 mg p.o. daily, Femara 2.5 mg p.o. daily, Ditropan 5 mg p.o. b.i.d., clonidine 0.2 mg p.o. every 12 hours, Cardura 5 mg p.o. at bedtime and Ambien 5 mg p.o. at bedtime p.r.n. insomnia. The patient has been instructed as to the proper usage of incentive spirometry. She continues on a heart healthy renal diet. She remains in isolation precautions and is scheduled for physical therapy. She will need her bilateral ureteral stents changed, aggressive IV antibiotics and transitional care rehab. Greater than 35 minutes was spent in the care management, discussion of this patient at the bedside with her and nurse, Dilan as well as discussion with Dr. Lloyd and Dr. Weinberg and all questions were answered Luisa Pa MD
--- NOTE | 2018-10-25 13:07 | DS ---
DATE: 10/25/2018 SUBJECTIVE: This 63-year-old female was examined at the bedside on the morning of 10/25/2018 . Present for the interview was her , Joe, and this case was reviewed in detail with her nurse, Gisele Garcia, registered nurse. The patient is out of bed to chair. She is able to successfully perform incentive spirometry for me. Review of her vital signs shows no fever in the past 24 hours and she is currently receiving IV meropenem. I have discussed this case with Dr. Weinberg who is recommending changing of her vascular stents on the morning of 10/30/2018, after continued IV meropenem. The patient remains weak and deconditioned. PHYSICAL EXAMINATION: VITAL SIGNS: Temperature 98, respirations 18, pulse 110 and blood pressure 139/91 with a pulse ox of 96% on room air. HEAD: Normocephalic, atraumatic. EYES: No icterus. EARS: Clear. THROAT: Noninjected. NECK: Supple. HEART: Regular S1, S2. LUNGS: Clear. ABDOMEN: Obese, nontender. No rebound or guarding. No tenderness. EXTREMITIES: No edema. SKIN: Without rash. NEUROLOGIC: Intact. PSYCHOLOGIC: Alert and oriented x3. VASCULAR: Legs warm to touch. LABORATORY DATA: Sodium 138, K 4.1, chloride 111, bicarb 20, BUN 39, creatinine 2.8, random blood sugar 101. White count 3500, hemoglobin 9.4, hematocrit 29.8, platelets 227,000. Urine cultures are growing Klebsiella pneumoniae sensitive to meropenem. Blood culture show no growth to date. IMPRESSION: This is a 63-year-old female with Klebsiella pneumoniae, urinary tract infection, urosepsis and comorbidities of improved metabolic encephalopathy, history of old stroke, right lower lung discoid atelectasis, obesity, stage IV metastatic uterine cancer, insomnia, chronic hypertension, anemia of chronic disease, iron-deficiency anemia, urinary incontinence, hyperlipidemia, degenerative arthritis. PLAN: My plans are to continue Ambien, Cardura, clonidine, Ditropan, Femara, Fergon, Lipitor, Lopressor, IV meropenem, nitroglycerin, Procardia XL has been adjusted to 120 mg p.o. daily. I will stop her 0.9 saline IV fluids and encourage 1 liter of the p.o. fluids daily. was instructed to this need at bedside. As discussed with nursing staff, she will require physical therapy, incentive spirometry, isolation and scheduling of her ureteral stent replacement with Dr. Weinberg. We are planning for transitional care rehab when stable. Greater than 35 minutes was spent in the care management, adjustment of orders and discussion of this patient with nursing, co-consultants and family. All questions were answered Luisa Pa MD
--- NOTE | 2018-10-25 14:24 | CP.PCM.PN ---
Subjective - Date & Time of Evaluation Date of Evaluation: 10/25/18 Time of Evaluation: 13:00 - Subjective Subjective: Infectious Disease Follow Up: October 25, 2018 63 yo female with known history of metastatic uterine carcinoma. The patient was brought into [facility] [place] for fevers of 102 F at home. Fevers up to 105 F in the past 24 hours. Came to ER on 10/20/2018 and sent home when UA and influenza testing was found to be negative. Mild leukocytosis now of 11.1. Afebrile today. Creatinine remains high at 2.8 but improving. Patient overall feeling better. CT abd/pelvis didn't show any new findings. CT Head showing Mild atrophy and chronic microvascular ischemic disease with sub centimeter encephalomalacia at the left basal gnglia/coronal radiata likely representing chronic lacunar infarct. Creatinine slightly improving. Objective - Vital Signs/Intake and Output Vital Signs (last 24 hours): Temp Pulse Resp BP Pulse Ox 98.0 F 110 H 18 139/91 H 96 10/25/18 06:00 10/25/18 09:53 10/25/18 06:00 10/25/18 09:53 10/25/18 06:00 Intake and Output: 10/25/18 10/25/18 06:59 18:59 Intake Total 240 500 Output Total 2000 700 Balance -1760 -200 - Medications Medications: Current Medications Acetaminophen (Tylenol 325mg Tab) 650 mg PO Q6H PRN PRN Reason: Fever >100.4 F Last Admin: 10/24/18 06:12 Dose: 650 mg Atorvastatin Calcium (Lipitor) 10 mg PO DIN [facility] Last Admin: 10/24/18 17:15 Dose: 10 mg Clonidine HCl (Catapres) 0.2 mg PO Q12 [facility] Last Admin: 10/25/18 09:53 Dose: 0.2 mg Doxazosin Mesylate (Cardura) 4 mg PO HS [facility] Last Admin: 10/24/18 21:52 Dose: 4 mg Ferrous Gluconate (Fergon) 324 mg PO DAILY [facility] Last Admin: 10/25/18 09:52 Dose: 324 mg Home Med (Home Med) 1 unit PO DAILY [facility] Last Admin: 10/25/18 09:54 Dose: Not Given Meropenem/Sodium Chloride (Merrem Iv 500 Mg/Ns 50 Ml) 500 mg in 50 mls @ 100 mls/hr IVPB Q12 [facility]; Protocol Last Admin: 10/25/18 09:54 Dose: 100 mls/hr Sodium Chloride (Sodium Chloride 0.9%) 250 mls @ 250 mls/hr IV .Q1H [facility] Last Admin: 10/23/18 19:17 Dose: 250 mls/hr Letrozole (Femara) 2.5 mg PO DAILY [facility] Last Admin: 10/25/18 10:29 Dose: 2.5 mg Metoprolol Tartrate (Lopressor) 50 mg PO BID [facility] Last Admin: 10/25/18 09:53 Dose: 50 mg Nifedipine (Procardia Xl) 120 mg PO DAILY [facility] Last Admin: 10/25/18 09:53 Dose: 120 mg Nitroglycerin (Nitro-Bid 2% Oint) 1 ea TOP Q4H PRN PRN Reason: hypertension Nystatin (Nystop Topical Powder) 1 gm TOP BID [facility] Last Admin: 10/25/18 09:55 Dose: 1 applic Oxybutynin Chloride (Ditropan Tab) 5 mg PO BID [facility] Last Admin: 10/25/18 09:52 Dose: 5 mg Tramadol/Acetaminophen (Ultracet 37.5/325 Mg) 1 tab PO Q6H PRN PRN Reason: Pain, moderate (4-7) Zolpidem Tartrate (Ambien) 5 mg PO HS PRN PRN Reason: Insomnia - Labs Labs: 10/25/18 07:10 10/25/18 07:10 - Constitutional Appears: Non-toxic, No Acute Distress, Chronically Ill - Head Exam Head Exam: ATRAUMATIC, NORMOCEPHALIC - Eye Exam Eye Exam: EOMI, PERRL Pupil Exam: NORMAL ACCOMODATION, PERRL - ENT Exam ENT Exam: Mucous Membranes Moist, Normal External Ear Exam, TM's Normal Bilaterally - Neck Exam Neck Exam: Full ROM, Normal Inspection - Respiratory Exam Respiratory Exam: Clear to Ausculation Bilateral, NORMAL BREATHING PATTERN. absent: Rales, Rhonchi, Wheezes - Cardiovascular Exam Cardiovascular Exam: REGULAR RHYTHM, RRR, +S1, +S2 - GI/Abdominal Exam GI & Abdominal Exam: Soft, Normal Bowel Sounds. absent: Distended, Tenderness - Extremities Exam Extremities Exam: Full ROM, Normal Inspection - Neurological Exam Neurological Exam: Alert, Awake, CN II-XII Intact, Oriented x3 - Psychiatric Exam Psychiatric exam: Normal Affect, Normal Mood - Skin Skin Exam: Intact, Normal Color Assessment and Plan - Assessment and Plan (Free Text) Assessment: 63 yo female well known to me presenting for fevers up to 104 F. History of frequent UTI and metastatic uterine cancer. Possible dehydration as part of fever cause? Creatinine has been better in the past. As high as 3.5 to 3.8 for this hospitalization. Mild leukocytosis. Urine cultures with gram negative nick growth. Prior history of ESBL+ Pseudomonas and E.coli. Start with Meropenem IV for now. R/O sepsis. R/O UTI given patient's history. One dose of Vancomycin given. May need a dose of aminoglycoside. Will give one dose of Gentamicin. Monitor creatinine. Supportive care. No complaints other than fevers at this time. Patient otherwise comfortable. Limited options given the patient's renal function. Continue meropenem. Creatinine improving to 2.8. Fevers downtrending. Afebrile today so far. Thank you for allowing me to participate in the care of the patient, we will follow with you.
== END 2018-10-25 15:22 | DRG 689 ==
LOC: ED 12:34 → ERH 13:28 → 5RNO 15:23
PROVIDERS: ADMIT Internal Medicine; ATTEND Internal Medicine
DX: N39.0 Urinary tract infection, site not specified (principal); G93.41 Metabolic encephalopathy; C78.7 Secondary malignant neoplasm of liver and intrahepatic bile duct; N18.4 Chronic kidney disease, stage 4 (severe); I12.9 Hypertensive chronic kidney disease with stage 1 through stage 4 chronic kidney disease, or unspecified chronic kidney disease; N13.30 Unspecified hydronephrosis; E86.0 Dehydration; D63.8 Anemia in other chronic diseases classified elsewhere; B96.1 Klebsiella pneumoniae [K. pneumoniae] as the cause of diseases classified elsewhere; E87.6 Hypokalemia; D50.9 Iron deficiency anemia, unspecified; J44.9 Chronic obstructive pulmonary disease, unspecified; K21.9 Gastro-esophageal reflux disease without esophagitis; G93.89 Other specified disorders of brain; E66.9 Obesity, unspecified; E78.5 Hyperlipidemia, unspecified; F51.04 Psychophysiologic insomnia; M19.90 Unspecified osteoarthritis, unspecified site; Z85.42 Personal history of malignant neoplasm of other parts of uterus; Z68.36 Body mass index [BMI] 36.0-36.9, adult; Z86.73 Personal history of transient ischemic attack (TIA), and cerebral infarction without residual deficits; Z87.11 Personal history of peptic ulcer disease

== ENCOUNTER 2018-10-25 15:24 | Inpatient (IN) | payer OTHER, BC ==
[2018-10-25] MEDS ORDERED: TraMADol/Apap 37.5/325 mg Tab PO PRN (15:29)
[2018-10-25] MEDS ORDERED: Nitroglycerin 2% Ointment Foilpak UD TOP PRN (15:29)
[2018-10-25 15:31] VITALS: BMI 36.5
[2018-10-25] MEDS: Meropenem 500 MG in NS 0.9% 50 ML IVPB SCH (17:24)
[2018-10-25] MEDS: Nystatin 100,000 Units/gm Topical Pow(15 gm) TOP SCH (17:25)
[2018-10-25] MEDS ORDERED: MEROPENEM IV SCH (18:00)
[2018-10-25] MEDS ORDERED: NS IV SCH (18:00)
[2018-10-25] MEDS ORDERED: Influenza Vaccine 60 mcg/0.5 mL SYR (4YR UP) IM ONE (23:35)
[2018-10-25] MEDS ORDERED: Pneumococcal 23-Valent Vaccine IM ONE (23:35)
[2018-10-26] MEDS: Meropenem 500 MG in NS 0.9% 50 ML IVPB SCH ×2 (05:31→17:15)
[2018-10-26 07:35] LABS: EOS # 0.2 (0.0-0.7); EOS % 4.3 % (1.5-5.0); HEMOGLOBIN 9.2 g/dL (12.0-16.0); LYMPH # 0.7 (1.2-3.4); LYMPH % 19.9 % (22.0-35.0); MEAN CELL VOLUME 92.7 fl (80.0-105.0); MEAN CORPUSCULAR HEMOGLOBIN 29.3 pg (25.0-35.0); MEAN CORPUSCULAR HGB CONC 31.6 g/dl (31.0-37.0); MEAN PLATELET VOLUME 8.4 fl (7.0-11.0); MONO # 0.4 (0.1-0.6); MONO % 10.5 % (1.0-6.0); RBC 3.14 10^6/uL (3.5-6.1); RED CELL DISTRIBUTION WIDTH 14.5 % (11.5-14.5); WHITE BLOOD COUNT 3.5 10^3/uL (4.5-11.0)
[2018-10-26 07:50] LABS: CALCIUM 8.8 mg/dL (8.4-10.5)
[2018-10-26] MEDS: NIFEdipine 60 mg ER Tab PO SCH (10:37)
[2018-10-26] MEDS: Nystatin 100,000 Units/gm Topical Pow(15 gm) TOP SCH ×2 (10:41→17:15)
--- NOTE | 2018-10-26 20:33 | HP ---
DATE OF EXAM: 10/26/2018 HISTORY OF PRESENT ILLNESS: This 63-year-old female was examined in the [facility] where she is being treated for Klebsiella pneumoniae urosepsis. 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 CURRENT MEDICATIONS Include p.r.n. Ambien, Cardura, clonidine, Ditropan, Femara, Fergon, Lipitor, Lopressor, IV meropenem, nitroglycerin p.r.n. accelerated hypertension, Procardia XL, Tylenol and p.r.n. Ultracet. ALLERGIES: THE PATIENT HAS NO KNOWN ALLERGIES TO MEDICATION. FAMILY HISTORY: Noncontributory. SOCIAL HISTORY: She is a nondrinker, nonsmoker, non IV drug misuser. REVIEW OF SYSTEMS Constitutional: The patient denied fever or chills. Head: No headache or seizures. Eyes: No change in visual acuity. Ears: No hearing loss. Throat: No swallowing difficulty. Neck: No stiffness. Cardiac: No chest pain. Pulmonary: No cough. No hemoptysis. Gastrointestinal: No hematemesis. No melena. Genitourinary: No dysuria. Skin: No rash. Vascular: No claudication. Psychological: No current anxiety. Neurological: No knowledge of stroke. PHYSICAL EXAMINATION VITAL SIGNS: Her temperature was 97.8, respirations 18, pulse 57 and blood pressure 136/82. HEAD: Normocephalic, atraumatic. EYES: No icterus. EARS: Clear. THROAT: Noninjected. NECK: Supple. HEART: Regular S1, S2. LUNGS: Clear. ABDOMEN: Obese, nontender. No palpable organomegaly. No rebound. No guarding. No tenderness. EXTREMITIES: No edema. SKIN: Without rash. NEUROLOGICAL: Intact. PSYCHOLOGICAL: Alert. VASCULAR: Legs warm to touch. LABORATORY DATA: White count 3500, hemoglobin 9.2, hematocrit 29.1, platelets 248,000. Sodium 140, potassium 4.3, chloride 113, bicarb 21, BUN 38, creatinine 2.7, random blood sugar 109 with a calcium of 8.8. IMPRESSION: A 63-year-old female with urinary tract sepsis secondary to Klebsiella pneumoniae, now on IV meropenem under the direction of Dr. 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 PLAN: The plan at present is to continue Ambien, Cardura, clonidine, Ditropan, Femara, Fergon, Lipitor, Lopressor, IV meropenem, p.r.n. nitroglycerin, Procardia XL, Tylenol and Ultracet. The patient is ordered to have physical and occupational therapy. She continues on incentive spirometry. She is ordered to have a heart-healthy renal diet. She remains on isolation and based on clinical progress, additional diagnostic workup and testing will be entertained. The patient will be scheduled for bilateral ureteral stent replacement when medically stable. Greater than 35 minutes were spent in the care management, review of labs, orders and x-rays and discussion of this patient with her at the bedside as well as nursing. All questions were answered. Luisa Pa MD
--- NOTE | 2018-10-26 23:33 | CP.PCM.CON ---
History of Present Illness - History of Present Illness History of Present Illness: Infectious Disease Follow Up: October 26, 2018 63 yo female with known history of metastatic uterine carcinoma. The [place] [facility] [place]vers of 102 F at [place]. Fevers up to 105 F in the past 24 hours. Came to ER on 10/20/2018 and sent home when UA and influenza testing was found to be negative. Mild leukocytosis now of 11.1. Afebrile today. Creatinine remains high at 2.8 but improving. ESBL+ Klebsiella in urine cultures. On Meropenem for treatment that required a few days to break the patient's fever. Patient overall feeling better. CT abd/pelvis didn't show any new findings. CT Head showing Mild atrophy and chronic microvascular ischemic disease with sub centimeter encephalomalacia at the left basal gnglia/coronal radiata likely representing chronic lacunar infarct. Creatinine slightly improving. PMHx: Uterine Carcinoma with metastatic disease, Obesity, hypertension, anemia, hyperlipidemia, GERDs, bilateral hydronephrosis with replaced bilateral urethral stents, chronic renal disease stage III, degenerative arthritis, and COPD PSHx: Bilateral urethral stents Allergies: NKDA Social Hx: No tobacco, no EtOH, or illicit drug use Active Medications Acetaminophen (Tylenol 325mg Tab) 650 mg PO Q6H PRN; Protocol PRN Reason: Fever >100.4 F Last Admin: 10/26/18 11:47 Dose: 650 mg Atorvastatin Calcium (Lipitor) 10 mg PO HS [facility]; Protocol Last Admin: 10/26/18 21:13 Dose: 10 mg Clonidine HCl (Catapres) 0.2 mg PO Q12 [facility]; Protocol Last Admin: 10/26/18 21:13 Dose: 0.2 mg Doxazosin Mesylate (Cardura) 4 mg PO HS [facility]; Protocol Last Admin: 10/26/18 21:12 Dose: 4 mg Ferrous Gluconate (Fergon) 324 mg PO DAILY [facility]; Protocol Last Admin: 10/26/18 10:37 Dose: 324 mg Meropenem/Sodium Chloride (Merrem Iv 500 Mg/Ns 50 Ml) 500 mg in 50 mls @ 100 mls/hr IVPB 0600,1800 [facility] Stop: 10/29/18 06:01 Last Admin: 10/26/18 17:15 Dose: 100 mls/hr Letrozole (Femara) 2.5 mg PO DAILY [facility]; Protocol Last Admin: 10/26/18 10:46 Dose: 2.5 mg Metoprolol Tartrate (Lopressor) 50 mg PO 0800,1800 [facility]; Protocol Last Admin: 10/26/18 17:14 Dose: 50 mg Nifedipine (Procardia Xl) 120 mg PO DAILY [facility]; Protocol Last Admin: 10/26/18 10:37 Dose: 120 mg Nitroglycerin (Nitro-Bid 2% Oint) 1 ea TOP Q4H PRN; Protocol PRN Reason: hypertension Nystatin (Nystop Topical Powder) 0 gm TOP BID [facility] Last Admin: 10/26/18 17:15 Dose: 1 applic Oxybutynin Chloride (Ditropan Tab) 5 mg PO BID [facility] Last Admin: 10/26/18 17:14 Dose: 5 mg Tramadol/Acetaminophen (Ultracet 37.5/325 Mg) 1 tab PO Q12H PRN PRN Reason: Pain, moderate (4-7) Zolpidem Tartrate (Ambien) 5 mg PO HS PRN; Protocol PRN Reason: Insomnia Family Hx: None given ROS: Patient stating fever. No headaches, dizziness, chest pain, abdominal pain, melena, hematuria, hematemesis, hematochezia, depression, anxiety Past Patient History - Infectious Disease Hx of Infectious Diseases: None - Past Social History Smoking Status: Never Smoked - CARDIAC Hx Hypertension: Yes - PULMONARY Hx Chronic Obstructive Pulmonary Disease (COPD): Yes - NEUROLOGICAL Hx Neurological Disorder: No - HEENT Hx HEENT Problems: Yes (uses reading glasses) - RENAL Hx Renal Failure: Yes (St III) - ENDOCRINE/METABOLIC Hx Endocrine Disorders: No - HEMATOLOGICAL/ONCOLOGICAL Hx Anemia: Yes - INTEGUMENTARY Hx Dermatological Problems: Yes - MUSCULOSKELETAL/RHEUMATOLOGICAL Hx Arthritis: Yes Hx Falls: Yes (past) - GASTROINTESTINAL Hx Gastrointestinal Disorders: (hx peptic ulcer,reflux, uterine ca mets to liver) - GENITOURINARY/GYNECOLOGICAL Hx Reproductive Disorders: Yes (hyst/uterine ca mets to liver) Hx Urinary Tract Infection: Yes - PSYCHIATRIC Hx Substance Use: No - SURGICAL HISTORY Hx Hysterectomy: Yes - ANESTHESIA Hx Anesthesia Reactions: No Hx Malignant Hyperthermia: No Meds Allergies/Adverse Reactions: Allergies Allergy/AdvReac Type Severity Reaction Status Date / Time No Known Allergies Allergy Verified 09/02/18 18:11 - Medications Medications: Current Medications Acetaminophen (Tylenol 325mg Tab) 650 mg PO Q6H PRN; Protocol PRN Reason: Fever >100.4 F Last Admin: 10/26/18 11:47 Dose: 650 mg Atorvastatin Calcium (Lipitor) 10 mg PO HS [facility]; Protocol Last Admin: 10/26/18 21:13 Dose: 10 mg Clonidine HCl (Catapres) 0.2 mg PO Q12 [facility]; Protocol Last Admin: 10/26/18 21:13 Dose: 0.2 mg Doxazosin Mesylate (Cardura) 4 mg PO HS [facility]; Protocol Last Admin: 10/26/18 21:12 Dose: 4 mg Ferrous Gluconate (Fergon) 324 mg PO DAILY [facility]; Protocol Last Admin: 10/26/18 10:37 Dose: 324 mg Meropenem/Sodium Chloride (Merrem Iv 500 Mg/Ns 50 Ml) 500 mg in 50 mls @ 100 mls/hr IVPB 0600,1800 [facility] Stop: 10/29/18 06:01 Last Admin: 10/26/18 17:15 Dose: 100 mls/hr Letrozole (Femara) 2.5 mg PO DAILY [facility]; Protocol Last Admin: 10/26/18 10:46 Dose: 2.5 mg Metoprolol Tartrate (Lopressor) 50 mg PO 0800,1800 [facility]; Protocol Last Admin: 10/26/18 17:14 Dose: 50 mg Nifedipine (Procardia Xl) 120 mg PO DAILY [facility]; Protocol Last Admin: 10/26/18 10:37 Dose: 120 mg Nitroglycerin (Nitro-Bid 2% Oint) 1 ea TOP Q4H PRN; Protocol PRN Reason: hypertension Nystatin (Nystop Topical Powder) 0 gm TOP BID [facility] Last Admin: 10/26/18 17:15 Dose: 1 applic Oxybutynin Chloride (Ditropan Tab) 5 mg PO BID [facility] Last Admin: 10/26/18 17:14 Dose: 5 mg Tramadol/Acetaminophen (Ultracet 37.5/325 Mg) 1 tab PO Q12H PRN PRN Reason: Pain, moderate (4-7) Zolpidem Tartrate (Ambien) 5 mg PO HS PRN; Protocol PRN Reason: Insomnia Physical Exam - Constitutional Appears: Non-toxic, No Acute Distress, Chronically Ill - Head Exam Head Exam: ATRAUMATIC, NORMOCEPHALIC - Eye Exam Eye Exam: EOMI, PERRL Pupil Exam: NORMAL ACCOMODATION, PERRL - ENT Exam ENT Exam: Mucous Membranes Moist, Normal External Ear Exam, TM's Normal B ilaterally - Neck Exam Neck exam: Positive for: Full Rom, Normal Inspection - Respiratory Exam Respiratory Exam: Clear to Auscultation Bilateral, NORMAL BREATHING PATTERN. absent: Rales, Rhonchi, Wheezes - Cardiovascular Exam Cardiovascular Exam: REGULAR RHYTHM, RRR, +S1, +S2 - GI/Abdominal Exam GI & Abdominal Exam: Normal Bowel Sounds, Soft. absent: Distended, Tenderness - Extremities Exam Extremities exam: Positive for: full ROM, normal inspection - Neurological Exam Neurological exam: Alert, CN II-XII Intact, Oriented x3 - Psychiatric Exam Psychiatric exam: Normal Affect, Normal Mood - Skin Skin Exam: Intact, Normal Color Results - Vital Signs Recent Vital Signs: Last Vital Signs Temp 97.2 F L 10/26/18 10:00 Pulse 60 10/26/18 21:13 Resp 14 10/26/18 10:00 BP 146/81 10/26/18 21:13 Pulse Ox 99 10/26/18 10:00 - Labs Result Diagrams: 10/26/18 07:15 10/26/18 07:15 Labs: Laboratory Results - last 24 hr 10/26/18 10/26/18 07:15 07:15 WBC 3.5 L RBC 3.14 L Hgb 9.2 L Hct 29.1 L MCV 92.7 MCH 29.3 MCHC 31.6 RDW 14.5 Plt Count 248 MPV 8.4 Neut % (Auto) 65.3 Lymph % (Auto) 19.9 L Terrell % (Auto) 10.5 H Eos % (Auto) 4.3 Baso % (Auto) 0.0 Lymph # (Auto) 0.7 L Terrell # (Auto) 0.4 Eos # (Auto) 0.2 Baso # (Auto) 0.00 Absolute Neuts (auto) 2.29 Sodium 140 Potassium 4.3 Chloride 113 H Carbon Dioxide 21 Anion Gap 11 BUN 38 H Creatinine 2.7 H Est GFR ( Amer) 21 Est GFR (Non-Af Amer) 18 Random Glucose 109 Calcium 8.8 Assessment & Plan - Assessment and Plan (Free Text) Assessment: 63 yo female well known to me presenting for fevers up to 104 F. History of frequent UTI and metastatic uterine cancer. Possible dehydration as part of fever cause? Creatinine has been better in the past. As high as 3.5 to 3.8 for this hospitalization. Mild leukocytosis. Urine cultures with gram negative nick growth. Prior history of ESBL+ Pseudomonas and E.coli. Start with Meropenem IV for now. R/O sepsis. R/O UTI given patient's history. One dose of Vancomycin given. May need a dose of aminoglycoside. Will give one dose of Gentamicin. Monitor creatinine. Supportive care. No complaints other than fevers at this time. Patient otherwise comfortable. Limited options given the patient's renal function. Continue meropenem. Creatinine improving to 2.7. Fevers downtrending. Afebrile today so far. Looking for at least 10 days total of Meropenem treatment (started 10/21/2018). Thank you for allowing me to participate in the care of the patient, we will follow with you.
[2018-10-27] MEDS: Meropenem 500 MG in NS 0.9% 50 ML IVPB SCH ×2 (05:27→17:01)
--- NOTE | 2018-10-27 08:17 | PCM.URO ---
Urology Progress Note - Objective Lab Studies: Reviewed (gu plans : cysto tuesday or tuesday if medically and id cleared) Vital Signs: Vital Signs - 24 hr 10/26/18 10/26/18 10/26/18 10:00 10:34 10:37 Temperature 97.2 F L Pulse Rate 68 Respiratory 14 Rate Blood Pressure 136/82 136/82 136/82 O2 Sat by Pulse 99 Oximetry 10/26/18 10/26/18 17:14 21:13 Temperature Pulse Rate 64 60 Respiratory Rate Blood Pressure 109/75 146/81 O2 Sat by Pulse Oximetry
[2018-10-27] MEDS: NIFEdipine 60 mg ER Tab PO SCH (10:55)
[2018-10-27] MEDS: Nystatin 100,000 Units/gm Topical Pow(15 gm) TOP SCH ×2 (10:55→17:02)
--- NOTE | 2018-10-27 12:44 | PN ---
DATE: 10/27/2018 SUBJECTIVE: This 63-year-old female was examined at her bedside in the presence of her , Joe, and her daughter Corinna. She is out of bed to chair. She is able to perform incentive spirometry adequately and has no fever or chills. She is cooperating with physical therapy. PHYSICAL EXAMINATION: VITAL SIGNS: Temperature 97.2, respirations 14, pulse 60 and blood pressure 146/81. HEAD: Normocephalic, atraumatic. EYES: No icterus. EARS: Clear. THROAT: Noninjected. NECK: Supple. HEART: S1, S2. LUNGS: Clear. ABDOMEN: Obese. EXTREMITIES: No edema. SKIN: Without rash. NEUROLOGIC: Intact. PSYCHOLOGIC: Alert. VASCULAR: Legs warm to touch. LABORATORY DATA: White count 3500, hemoglobin 9.2, hematocrit 29.1, platelets 248,000. Sodium 140, K 4.3, chloride 113, bicarb 21, BUN 38, creatinine 2.7, random blood sugar 109 and calcium 8.8. IMPRESSION: This is a 63-year-old female with Klebsiella pneumoniae, urinary tract infection, urosepsis and comorbidities of stage IV metastatic uterine cancer with bilateral chronic hydronephrosis treated with bilateral renal stents as well as chronic renal failure stage IV, chronic hypertension, anemia of chronic disease, iron-deficiency anemia, hyperlipidemia, degenerative arthritis. PLAN: The plan at present is to continue p.r.n. Ambien, Cardura, clonidine, Ditropan, Femara, Fergon, Lipitor, Lopressor, IV meropenem, Procardia, Tylenol and p.r.n. Ultracet. She continues on heart-healthy diet. She is ordered to have physical therapy daily. She is instructed on incentive spirometry and remains on isolation precautions. Ultimate plan will be for discharge to home when medically stable and the patient will need to have bilateral renal stents replaced by Dr. Weinberg when medically stable and cleared by Dr. Nilesh Lloyd from Infectious Disease. Greater than 35 minutes was spent in the care management, review of labs, orders, x-rays, discussion of this patient with her nurse, Lola Velazquez and family at bedside. group exercise manager and physical therapy. All questions were answered Luisa Pa MD [facility] # [id number] [facility]
--- NOTE | 2018-10-27 16:09 | CP.PCM.PN ---
Subjective - Date & Time of Evaluation Date of Evaluation: 10/27/18 Time of Evaluation: 12:15 - Subjective Subjective: Infectious Disease Follow Up: October 27, 2018 63 yo female with known history of metastatic uterine carcinoma. The patient was brought into [facility] [place] for fevers of 102 F at home. Fevers up to 105 F in the past 24 hours. Came to ER on 10/20/2018 and sent home when UA and influenza testing was found to be negative. Mild leukocytosis now of 11.1. Afebrile today. Creatinine remains high at 2.8 but improving. ESBL+ Klebsiella in urine cultures. On Meropenem for treatment that required a few days to break the patient's fever. Patient overall feeling better. CT abd/pelvis didn't show any new findings. CT Head showing Mild atrophy and chronic microvascular ischemic disease with sub centimeter encephalomalacia at the left basal ganglia/coronal radiata likely representing chronic lacunar infarct. Creatinine slightly improved to 2.7 now. Objective - Vital Signs/Intake and Output Vital Signs (last 24 hours): Temp Pulse Resp BP Pulse Ox 97.2 F L 60 14 159/83 H 99 10/26/18 10:00 10/26/18 21:13 10/26/18 10:00 10/27/18 10:55 10/26/18 10:00 - Medications Medications: Current Medications Acetaminophen (Tylenol 325mg Tab) 650 mg PO Q6H PRN; Protocol PRN Reason: Fever >100.4 F Last Admin: 10/27/18 10:52 Dose: 650 mg Atorvastatin Calcium (Lipitor) 10 mg PO HS [facility]I; Protocol Last Admin: 10/26/18 21:13 Dose: 10 mg Clonidine HCl (Catapres) 0.2 mg PO Q12 [facility]; Protocol Last Admin: 10/27/18 10:53 Dose: 0.2 mg Doxazosin Mesylate (Cardura) 4 mg PO HS [facility]; Protocol Last Admin: 10/26/18 21:12 Dose: 4 mg Ferrous Gluconate (Fergon) 324 mg PO DAILY [facility]; Protocol Last Admin: 10/27/18 10:54 Dose: 324 mg Meropenem/Sodium Chloride (Merrem Iv 500 Mg/Ns 50 Ml) 500 mg in 50 mls @ 100 mls/hr IVPB 0600,1800 [facility] Stop: 10/29/18 06:01 Last Admin: 10/27/18 05:27 Dose: 100 mls/hr Letrozole (Femara) 2.5 mg PO DAILY [facility]; Protocol Last Admin: 10/27/18 10:54 Dose: 2.5 mg Metoprolol Tartrate (Lopressor) 50 mg PO 0800,1800 [facility]; Protocol Last Admin: 10/27/18 08:51 Dose: 50 mg Nifedipine (Procardia Xl) 120 mg PO DAILY [facility]; Protocol Last Admin: 10/27/18 10:55 Dose: 120 mg Nitroglycerin (Nitro-Bid 2% Oint) 1 ea TOP Q4H PRN; Protocol PRN Reason: hypertension Nystatin (Nystop Topical Powder) 0 gm TOP BID [facility] Last Admin: 10/27/18 10:55 Dose: 1 applic Oxybutynin Chloride (Ditropan Tab) 5 mg PO BID [facility] Last Admin: 10/27/18 10:54 Dose: 5 mg Tramadol/Acetaminophen (Ultracet 37.5/325 Mg) 1 tab PO Q12H PRN PRN Reason: Pain, moderate (4-7) Zolpidem Tartrate (Ambien) 5 mg PO HS PRN; Protocol PRN Reason: Insomnia - Labs Labs: 10/26/18 07:15 10/26/18 07:15 - Constitutional Appears: Non-toxic, No Acute Distress, Chronically Ill - Head Exam Head Exam: ATRAUMATIC, NORMOCEPHALIC - Eye Exam Eye Exam: EOMI, PERRL Pupil Exam: NORMAL ACCOMODATION, PERRL - ENT Exam ENT Exam: Mucous Membranes Moist, Normal External Ear Exam, TM's Normal Bilaterally - Neck Exam Neck Exam: Full ROM, Normal Inspection - Respiratory Exam Respiratory Exam: Clear to Ausculation Bilateral, NORMAL BREATHING PATTERN. absent: Rales, Rhonchi, Wheezes - Cardiovascular Exam Cardiovascular Exam: REGULAR RHYTHM, RRR, +S1, +S2 - GI/Abdominal Exam GI & Abdominal Exam: Soft, Normal Bowel Sounds. absent: Distended, Tenderness - Extremities Exam Extremities Exam: Full ROM, Normal Inspection - Neurological Exam Neurological Exam: Alert, Awake, CN II-XII Intact, Oriented x3 - Psychiatric Exam Psychiatric exam: Normal Affect, Normal Mood - Skin Skin Exam: Intact, Normal Color Assessment and Plan - Assessment and Plan (Free Text) Assessment: 63 yo female well known to me presenting for fevers up to 104 F. History of frequent UTI and metastatic uterine cancer. Possible dehydration as part of fever cause? Creatinine has been better in the past. As high as 3.5 to 3.8 for this hospitalization. Mild leukocytosis. Urine cultures with gram negative nick growth. Prior history of ESBL+ Pseudomonas and E.coli. Start with Meropenem IV for now. R/O sepsis. R/O UTI given patient's history. One dose of Vancomycin given. May need a dose of aminoglycoside. Will give one dose of Gentamicin. Monitor creatinine. Supportive care. No complaints other than fevers at this time. Patient otherwise comfortable. Limited options given the patient's renal function. Continue meropenem. Creatinine improving to 2.7. Fevers downtrending. Afebrile today so far. Looking for at least 10 days total of Meropenem treatment (started 10/21/2018). Because of the rules in the [facility], the patient would need to finish the Meropenem course before the stents can be replaced (apparently, patient would need to be discharged from the [facility] to have stents done and could NOT be readmitted to the [facility]). Thank you for allowing me to participate in the care of the patient, we will follow with you.
[2018-10-28] MEDS: Meropenem 500 MG in NS 0.9% 50 ML IVPB SCH ×2 (05:07→17:31)
[2018-10-28] MEDS: Nystatin 100,000 Units/gm Topical Pow(15 gm) TOP SCH ×2 (09:56→17:36)
[2018-10-28] MEDS: NIFEdipine 60 mg ER Tab PO SCH (10:05)
[2018-10-28] MEDS: TraMADol/Apap 37.5/325 mg Tab PO PRN (10:14)
--- NOTE | 2018-10-28 18:23 | CP.PCM.PN ---
Subjective - Date & Time of Evaluation Date of Evaluation: 10/28/18 Time of Evaluation: 15:00 - Subjective Subjective: Infectious Disease Follow Up: October 28, 2018 63 yo female with known history of metastatic uterine carcinoma. The patient was brought into [facility] [place] fevers of 102 F at home. Fevers up to 105 F in the past 24 hours. Came to ER on 10/20/2018 and sent home when UA and influenza testing was found to be negative. Mild leukocytosis now of 11.1. Afebrile today. Creatinine remains high at 2.8 but improving. ESBL+ Klebsiella in urine cultures. On Meropenem for treatment that required a few days to break the patient's fever. Patient overall feeling better. CT abd/pelvis didn't show any new findings. CT Head showing Mild atrophy and chronic microvascular ischemic disease with sub centimeter encephalomalacia at the left basal ganglia/coronal radiata likely representing chronic lacunar infarct. Creatinine slightly improved to 2.7 now. Objective - Vital Signs/Intake and Output Vital Signs (last 24 hours): Temp Pulse Resp BP Pulse Ox 97.5 F L 99 H 18 124/71 99 10/28/18 16:00 10/28/18 17:32 10/28/18 16:00 10/28/18 17:32 10/28/18 16:00 - Medications Medications: Current Medications Acetaminophen (Tylenol 325mg Tab) 650 mg PO Q6H PRN; Protocol PRN Reason: Fever >100.4 F Last Admin: 10/28/18 17:35 Dose: 650 mg Atorvastatin Calcium (Lipitor) 10 mg PO HS [facility]; Protocol Last Admin: 10/27/18 21:11 Dose: 10 mg Clonidine HCl (Catapres) 0.2 mg PO Q12 [facility]; Protocol Last Admin: 10/28/18 10:05 Dose: 0.2 mg Doxazosin Mesylate (Cardura) 4 mg PO HS [facility]; Protocol Last Admin: 10/27/18 21:10 Dose: 4 mg Ferrous Gluconate (Fergon) 324 mg PO DAILY [facility]; Protocol Last Admin: 10/28/18 09:56 Dose: 324 mg Meropenem/Sodium Chloride (Merrem Iv 500 Mg/Ns 50 Ml) 500 mg in 50 mls @ 100 mls/hr IVPB 0600,1800 [facility] Stop: 10/29/18 06:01 Last Admin: 10/28/18 17:31 Dose: 100 mls/hr Letrozole (Femara) 2.5 mg PO DAILY [facility]; Protocol Last Admin: 10/28/18 09:56 Dose: 2.5 mg Metoprolol Tartrate (Lopressor) 50 mg PO 0800,1800 [facility]; Protocol Last Admin: 10/28/18 17:32 Dose: 50 mg Nifedipine (Procardia Xl) 120 mg PO DAILY [facility]; Protocol Last Admin: 10/28/18 10:05 Dose: 120 mg Nitroglycerin (Nitro-Bid 2% Oint) 1 ea TOP Q4H PRN; Protocol PRN Reason: hypertension Nystatin (Nystop Topical Powder) 0 gm TOP BID [facility] Last Admin: 10/28/18 17:36 Dose: 1 applic Oxybutynin Chloride (Ditropan Tab) 5 mg PO BID [facility] Last Admin: 10/28/18 17:32 Dose: 5 mg Tramadol/Acetaminophen (Ultracet 37.5/325 Mg) 1 tab PO Q12H PRN PRN Reason: Pain, moderate (4-7) Last Admin: 10/28/18 10:14 Dose: 1 tab Zolpidem Tartrate (Ambien) 5 mg PO HS PRN; Protocol PRN Reason: Insomnia - Labs Labs: 10/26/18 07:15 10/26/18 07:15 - Constitutional Appears: Non-toxic, No Acute Distress, Chronically Ill - Head Exam Head Exam: ATRAUMATIC, NORMOCEPHALIC - Eye Exam Eye Exam: EOMI, PERRL Pupil Exam: NORMAL ACCOMODATION, PERRL - ENT Exam ENT Exam: Mucous Membranes Moist, Normal External Ear Exam, TM's Normal Bilaterally - Neck Exam Neck Exam: Full ROM, Normal Inspection - Respiratory Exam Respiratory Exam: Clear to Ausculation Bilateral, NORMAL BREATHING PATTERN. absent: Rales, Rhonchi, Wheezes - Cardiovascular Exam Cardiovascular Exam: REGULAR RHYTHM, RRR, +S1, +S2 - GI/Abdominal Exam GI & Abdominal Exam: Soft, Normal Bowel Sounds. absent: Distended, Tenderness - Extremities Exam Extremities Exam: Full ROM, Normal Inspection - Neurological Exam Neurological Exam: Alert, Awake, CN II-XII Intact, Oriented x3 - Psychiatric Exam Psychiatric exam: Normal Affect, Normal Mood - Skin Skin Exam: Intact, Normal Color Assessment and Plan - Assessment and Plan (Free Text) Assessment: 63 yo female well known to me presenting for fevers up to 104 F. History of frequent UTI and metastatic uterine cancer. Possible dehydration as part of fever cause? Creatinine has been better in the past. As high as 3.5 to 3.8 for this hospitalization. Mild leukocytosis. Urine cultures with gram negative nick growth. Prior history of ESBL+ Pseudomonas and E.coli. Start with Meropenem IV for now. R/O sepsis. R/O UTI given patient's history. One dose of Vancomycin given. May need a dose of aminoglycoside. Will give one dose of Gentamicin. Monitor creatinine. Supportive care. No complaints other than fevers at this time. Patient otherwise comfortable. Limited options given the patient's renal function. Continue meropenem. Creatinine improving to 2.7. Fevers downtrending. Afebrile today so far. Looking for at least 10 days total of Meropenem treatment (started 10/21/2018). Because of the rules in the [facility], the patient would need to finish the Meropenem course before the stents can be replaced (apparently, patient would need to be discharged from the [facility] to have stents done and could NOT be readmitted to the [facility]). Thank you for allowing me to participate in the care of the patient, we will follow with you.
[2018-10-29] MEDS: Meropenem 500 MG in NS 0.9% 50 ML IVPB SCH (06:04)
[2018-10-29] MEDS: POLYETHYLENE GLYCOL 3350 17 GM/Dose PACKET PO SCH (09:31)
[2018-10-29] MEDS: Nystatin 100,000 Units/gm Topical Pow(15 gm) TOP SCH ×2 (09:31→17:25)
[2018-10-29] MEDS: NIFEdipine 60 mg ER Tab PO SCH (09:35)
[2018-10-29] MEDS: TraMADol/Apap 37.5/325 mg Tab PO PRN (10:37)
--- NOTE | 2018-10-29 11:50 | PN ---
DATE: 10/29/2018 SUBJECTIVE: This 63-year-old female was examined at her bedside and her case was reviewed in detail with her nurse, Lisa Hunter, registered nurse. The patient is complaining of obstipation and I have ordered MiraLax and p.r.n. Fleet's enema. She denied any fever, chills, chest pain or shortness of breath and has tolerated IV meropenem with a defervescence in her fever curve. PHYSICAL EXAMINATION: VITAL SIGNS: Temperature is 97.8, respirations 18, blood pressure 137/75 with a pulse of 74 and a pulse ox of 98% on room air. HEENT: Head: Normocephalic, atraumatic. Eyes: No icterus. Ears: Clear. Throat noninjected. NECK: Supple. HEART: S1, S2. LUNGS: Clear. ABDOMEN: Soft. No CVA tenderness. EXTREMITIES: No edema. SKIN: Without rash. NEUROLOGICAL: Intact. PSYCHOLOGICAL: Alert. VASCULAR: Legs warm to touch. LABORATORY DATA: White count 3500, hemoglobin 9.2, hematocrit 29.1, platelets 248,000. Sodium 140, K 4.3, chloride 113, bicarb 21, BUN 38, creatinine 2.7, estimated GFR 18 mL per minute with a calcium of 8.8. IMPRESSION: This is a 63-year-old female with Klebsiella pneumoniae urinary tract infection, urosepsis and comorbidities of metastatic uterine cancer stage IV, bilateral hydronephrosis with chronic renal ureteral stents bilaterally, chronic renal failure stage 4, chronic insomnia, hypertension, obesity, urinary incontinence, anemia of chronic disease, hyperlipidemia, degenerative arthritis and peptic ulcer disease with gastroesophageal reflux disease. PLAN: As discussed with nurse, Dale, she will continue on Ambien 5 mg p.o. h.s. p.r.n. insomnia, Cardura 4 mg p.o. h.s., clonidine 0.2 mg p.o. b.i.d., Ditropan 5 mg p.o. b.i.d., Femara 2.5 mg p.o. daily, Fergon 324 mg p.o. daily, Lipitor 10 mg p.o. h.s., Lopressor 50 mg p.o. b.i.d., meropenem 500 mg IV every 12 hours, nitroglycerin 1 inch to chest wall every 4 hours if systolic blood pressure greater than 160 or diastolic blood pressure greater than 100, Pepcid 20 mg p.o. h.s., Procardia XL 120 mg p.o. daily and Tylenol 650 p.o. every 6 hours p.r.n. pain or temperature greater than 101. The patient will be scheduled for physical and occupational therapy, incentive spirometry was reviewed. She continues on isolation precautions, a heart-healthy diet and ultimate plan will be for discharge to home when medically stable with bilateral ureteral stent change prior to discharge. Greater than 35 minutes was spent in the care management, review of labs, orders and x-rays and discussion of this patient with her nurse. All questions were answered. Luisa Pa MD
--- NOTE | 2018-10-29 17:46 | CP.PCM.PN ---
Subjective - Date & Time of Evaluation Date of Evaluation: 10/29/18 Time of Evaluation: 15:45 - Subjective Subjective: Infectious Disease Follow Up: October 29, 2018 63 yo female with known history of metastatic uterine carcinoma. The patient was brought into [facility] [place] for fevers of 102 F at home. Fevers up to 105 F in the past 24 hours. Came to ER on 10/20/2018 and sent home when UA and influenza testing was found to be negative. Mild leukocytosis now of 11.1. Afebrile today. Creatinine remains high at 2.8 but improving. ESBL+ Klebsiella in urine cultures. On Meropenem for treatment that required a few days to break the patient's fever. Patient overall feeling better. CT abd/pelvis didn't show any new findings. CT Head showing Mild atrophy and chronic microvascular ischemic disease with sub centimeter encephalomalacia at the left basal ganglia/coronal radiata likely representing chronic lacunar infarct. Creatinine slightly improved to 2.7 on last check. Patient with no new complaints. Objective - Vital Signs/Intake and Output Vital Signs (last 24 hours): Temp Pulse Resp BP Pulse Ox 97.8 F 100 H 18 132/72 98 10/29/18 03:10 10/29/18 17:24 10/29/18 03:10 10/29/18 17:24 10/29/18 03:10 - Medications Medications: Current Medications Acetaminophen (Tylenol 325mg Tab) 650 mg PO Q6H PRN; Protocol PRN Reason: Fever >100.4 F Last Admin: 10/28/18 17:35 Dose: 650 mg Atorvastatin Calcium (Lipitor) 10 mg PO HS JAMARI; Protocol Last Admin: 10/28/18 21:33 Dose: 10 mg Clonidine HCl (Catapres) 0.2 mg PO Q12 JAMARI; Protocol Last Admin: 10/29/18 09:35 Dose: 0.2 mg Doxazosin Mesylate (Cardura) 4 mg PO HS JAMARI; Protocol Last Admin: 10/28/18 21:29 Dose: 4 mg Famotidine (Pepcid) 20 mg PO HS JAMARI Stop: 10/30/18 22:01 Ferrous Gluconate (Fergon) 324 mg PO DAILY JAMARI; Protocol Last Admin: 10/29/18 09:31 Dose: 324 mg Meropenem/Sodium Chloride (Merrem Iv 500 Mg/Ns 50 Ml) 500 mg in 50 mls @ 100 mls/hr IVPB 0600,1800 [facility]; Protocol Stop: 10/29/18 18:29 Last Admin: 10/29/18 17:24 Dose: 100 mls/hr Letrozole (Femara) 2.5 mg PO DAILY [facility]; Protocol Last Admin: 10/29/18 09:30 Dose: 2.5 mg Metoprolol Tartrate (Lopressor) 50 mg PO 0800,1800 [facility]; Protocol Last Admin: 10/29/18 17:24 Dose: 50 mg Nifedipine (Procardia Xl) 120 mg PO DAILY [facility]; Protocol Last Admin: 10/29/18 09:35 Dose: 120 mg Nitroglycerin (Nitro-Bid 2% Oint) 1 ea TOP Q4H PRN; Protocol PRN Reason: hypertension Nystatin (Nystop Topical Powder) 0 gm TOP BID [facility] Last Admin: 10/29/18 17:25 Dose: 1 applic Oxybutynin Chloride (Ditropan Tab) 5 mg PO BID [facility] Last Admin: 10/29/18 17:23 Dose: 5 mg Polyethylene Glycol (Miralax) 17 gm PO DAILY [facility]; Protocol Last Admin: 10/29/18 09:31 Dose: 17 gm Tramadol/Acetaminophen (Ultracet 37.5/325 Mg) 1 tab PO Q12H PRN PRN Reason: Pain, moderate (4-7) Last Admin: 10/29/18 10:37 Dose: 1 tab Zolpidem Tartrate (Ambien) 5 mg PO HS PRN; Protocol PRN Reason: Insomnia - Labs Labs: 10/26/18 07:15 10/26/18 07:15 - Constitutional Appears: Non-toxic, No Acute Distress, Chronically Ill - Head Exam Head Exam: ATRAUMATIC, NORMOCEPHALIC - Eye Exam Eye Exam: EOMI, PERRL Pupil Exam: NORMAL ACCOMODATION, PERRL - ENT Exam ENT Exam: Mucous Membranes Moist, Normal External Ear Exam, TM's Normal Bilaterally - Neck Exam Neck Exam: Full ROM, Normal Inspection - Respiratory Exam Respiratory Exam: Clear to Ausculation Bilateral, NORMAL BREATHING PATTERN. absent: Rales, Rhonchi, Wheezes - Cardiovascular Exam Cardiovascular Exam: REGULAR RHYTHM, RRR, +S1, +S2 - GI/Abdominal Exam GI & Abdominal Exam: Soft, Normal Bowel Sounds. absent: Distended, Tenderness - Extremities Exam Extremities Exam: Full ROM, Normal Inspection - Neurological Exam Neurological Exam: Alert, Awake, CN II-XII Intact, Oriented x3 - Psychiatric Exam Psychiatric exam: Normal Affect, Normal Mood - Skin Skin Exam: Intact, Normal Color Assessment and Plan - Assessment and Plan (Free Text) Assessment: 63 yo female well known to me presenting for fevers up to 104 F. History of frequent UTI and metastatic uterine cancer. Possible dehydration as part of fever cause? Creatinine has been better in the past. As high as 3.5 to 3.8 for this hospitalization. Mild leukocytosis. Urine cultures with gram negative nick growth. Prior history of ESBL+ Pseudomonas and E.coli. Start with Meropenem IV for now. R/O sepsis. R/O UTI given patient's history. One dose of Vancomycin given. May need a dose of aminoglycoside. Will give one dose of Gentamicin. Monitor creatinine. Supportive care. No complaints other than fevers at this time. Patient otherwise comfortable. Limited options given the patient's renal function. Continue meropenem. Creatinine improving to 2.7. Fevers downtrending. Afebrile today so far. Looking for at least 10 days total of Meropenem treatment (started 10/21/2018). Because of the rules in the TRCU, the patient would need to finish the Meropenem course before the stents can be replaced (apparently, patient would need to be discharged from the TRCU to have stents done and could NOT be readmitted to the TRCU). Thank you for allowing me to participate in the care of the patient, we will follow with you.
[2018-10-29] MEDS ORDERED: MEROPENEM 500 MG in NS 500 MG/50 ML BAG IVPB SCH (18:00)
--- NOTE | 2018-10-30 01:59 | PN ---
DATE: 10/25/2018 UROLOGY PROGRESS NOTE See the previously dictated note, previously discharge notes, consult notes, etc. The patient is currently resting. Recovering from her infection. Infectious Disease is on the case, Dr. Pa as well as urology followup note. The patient's past medical and surgical, all listed on the chart, and medications. PHYSICAL EXAMINATION: GENERAL: A well-nourished female, currently resting comfortably, at the bedside, visiting her. DIAGNOSIS: Bilateral hydronephrosis. The patient with bilateral stents in place. PLAN: The plan will be to change cleared by Infectious Disease. And then further plans will follow. For now, we are going to follow along no major changes. Just to make a note, she also has voiding dysfunction, urinary incontinence, urgency, frequency, and irritative and obstructive complaints. We tried Flomax. We tried Ditropan. So far, no help. We will discuss other options. May be just changing the stents will be helpful. Yadiel Weinberg MD
--- NOTE | 2018-10-30 02:27 | PN ---
DATE: 10/27/2018 Please see previous consult note. The patient is currently in the TCU, recovering. Reviewed the chart note from Dr. Pa, who knows her from Dr. Lloyd. From urology standpoint, the patient has bilateral stents. She has voiding dysfunction, incontinence, and recurrent infection. See the plans listed below. PAST MEDICAL HISTORY: Otherwise, no changes. PAST SURGICAL HISTORY: Otherwise, no changes. PHYSICAL EXAMINATION: Otherwise, no changes. MEDICATIONS: Otherwise, no changes. DIAGNOSES: Recurrent infection and bilateral stents were in place. The urology plans are as follows. We will make arrangement to change the stents on 10/30/2018. Medically cleared Infectious Disease cleared. ADDENDUM: After discussing options with Infectious Disease, we will be available at anytime once they have cleared the patient. I am going to wait for Dr. Pa and Dr. Lloyd to contact me, and, as soon as they tell me to put on the schedule, we will make that plan. I explained these all to the patient in great detail. Yadiel Weinberg MD
[2018-10-30] MEDS ORDERED: Meropenem 500 MG in Sodium Chloride 0.9% 100 ML IVPB SCH (06:00)
[2018-10-30 07:45] LABS: CALCIUM 8.8 mg/dL (8.4-10.5)
--- NOTE | 2018-10-30 09:14 | PN ---
DATE: 10/28/2018 SUBJECTIVE: This 63-year-old female was examined at the [facility] in the presence of her , Joe. This case was reviewed with her nurse, Alicja Garcia, registered nurse. The patient is out of bed to chair. She is able to perform incentive spirometry. There were no reports of fever, chills, chest pain or shortness of breath. OBJECTIVE: VITAL SIGNS: Temperature is 97.9, respirations 18, pulse 53, blood pressure 132/79, pulse ox 98%. HEENT: Head normocephalic, atraumatic. Eyes, no icterus. Ears, clear. Throat, noninjected. NECK: Supple. HEART: S1 and S2. LUNGS: Clear. ABDOMEN: Obese, nontender. No rebound, no guarding, no tenderness. No CVA tenderness. EXTREMITIES: No edema. SKIN: Without rash. NEUROLOGICAL: Intact. PSYCHOLOGICAL: Alert. VASCULAR: Legs warm to touch. LABORATORY DATA: White count 3500, hemoglobin 9.2, hematocrit 29.1, platelets 248,000. Sodium 140, K 4.3, chloride 113, bicarb 21, BUN 38, creatinine 2.7, random blood sugar 109, calcium 8.8. IMPRESSION: A 63-year-old female with Klebsiella pneumoniae urinary tract infection, urosepsis and comorbidities of metastatic stage IV uterine cancer causing bilateral hydronephrosis with chronic ureteral stents, chronic renal failure stage IV, anemia of chronic disease, iron-deficiency anemia, insomnia, chronic hypertension, urinary incontinence, hyperlipidemia and degenerative arthritis. PLAN: Continue IV meropenem 500 mg IV every 12 hours, p.r.n. Tylenol, p.r.n. Ultracet, Procardia XL, nitroglycerin to chest wall for accelerated hypertension, oral Lopressor, Lipitor, Fergon, Femara, Ditropan, clonidine, Cardura and Ambien. The patient is scheduled for daily physical and occupational therapy. She remains on isolation precautions, a heart-healthy renal diet. Based on clinical progress, additional diagnostic workup and testing will be entertained. The patient will be scheduled for bilateral ureteral stent replacement prior to her discharge to home. Greater than 35 minutes was spent in the care management, review of labs, orders and discussion of this patient with her family at bedside and nursing. All questions were answered. Luisa Pa MD [facility] # [id number]
[2018-10-30] MEDS: POLYETHYLENE GLYCOL 3350 17 GM/Dose PACKET PO SCH (10:11)
[2018-10-30] MEDS: Nystatin 100,000 Units/gm Topical Pow(15 gm) TOP SCH ×2 (10:11→17:13)
[2018-10-30] MEDS: NIFEdipine 60 mg ER Tab PO SCH (10:12)
[2018-10-30] MEDS: TraMADol/Apap 37.5/325 mg Tab PO PRN (10:16)
--- NOTE | 2018-10-30 15:42 | CP.PCM.PN ---
Subjective - Date & Time of Evaluation Date of Evaluation: 10/30/18 Time of Evaluation: 14:00 - Subjective Subjective: Infectious Disease Follow Up: October 30, 2018 63 yo female with known history of metastatic uterine carcinoma. The patient was [place] [facility] [place] fevers of 102 F at home. Fevers up to 105 F in the past 24 hours. Came to ER on 10/20/2018 and sent home when UA and influenza testing was found to be negative. Mild leukocytosis now of 11.1. Afebrile today. Creatinine remains high at 2.8 but improving. ESBL+ Klebsiella in urine cultures. On Meropenem for treatment that required a few days to break the patient's fever. Patient overall feeling better. CT abd/pelvis didn't show any new findings. CT Head showing Mild atrophy and chronic microvascular ischemic disease with sub centimeter encephalomalacia at the left basal ganglia/coronal radiata likely representing chronic lacunar infarct. Creatinine slightly improved to 2.7 on last check. Patient with no new complaints. Objective - Vital Signs/Intake and Output Vital Signs (last 24 hours): Temp Pulse Resp BP Pulse Ox 97.6 F 92 H 16 172/96 H 100 10/30/18 10:00 10/30/18 10:00 10/30/18 10:00 10/30/18 10:12 10/30/18 10:00 - Medications Medications: Current Medications Acetaminophen (Tylenol 325mg Tab) 650 mg PO Q6H PRN; Protocol PRN Reason: Fever >100.4 F Last Admin: 10/29/18 21:31 Dose: 650 mg Atorvastatin Calcium (Lipitor) 10 mg PO HS JAMARI; Protocol Last Admin: 10/29/18 21:26 Dose: 10 mg Clonidine HCl (Catapres) 0.2 mg PO Q12 [facility]I; Protocol Last Admin: 10/30/18 10:08 Dose: 0.2 mg Doxazosin Mesylate (Cardura) 4 mg PO HS JAMARI; Protocol Last Admin: 10/29/18 21:24 Dose: Not Given Famotidine (Pepcid) 20 mg PO HS JAMARI Stop: 10/30/18 22:01 Last Admin: 10/29/18 21:27 Dose: 20 mg Ferrous Gluconate (Fergon) 324 mg PO DAILY [facility]; Protocol Last Admin: 10/30/18 10:11 Dose: 324 mg Meropenem/Sodium Chloride (Merrem Iv 500 Mg/Ns 50 Ml) 500 mg in 50 mls @ 100 mls/hr IVPB 0600,1800 [facility]; Protocol Letrozole (Femara) 2.5 mg PO DAILY [facility]; Protocol Last Admin: 10/30/18 10:09 Dose: 2.5 mg Metoprolol Tartrate (Lopressor) 50 mg PO 0800,1800 [facility]; Protocol Last Admin: 10/30/18 07:46 Dose: 50 mg Nifedipine (Procardia Xl) 120 mg PO DAILY [facility]; Protocol Last Admin: 10/30/18 10:12 Dose: 120 mg Nitroglycerin (Nitro-Bid 2% Oint) 1 ea TOP Q4H PRN; Protocol PRN Reason: hypertension Nystatin (Nystop Topical Powder) 0 gm TOP BID [facility] Last Admin: 10/30/18 10:11 Dose: 1 applic Oxybutynin Chloride (Ditropan Tab) 5 mg PO BID [facility] Last Admin: 10/30/18 10:09 Dose: 5 mg Polyethylene Glycol (Miralax) 17 gm PO DAILY [facility]; Protocol Last Admin: 10/30/18 10:11 Dose: 17 gm Tramadol/Acetaminophen (Ultracet 37.5/325 Mg) 1 tab PO Q12H PRN PRN Reason: Pain, moderate (4-7) Last Admin: 10/30/18 10:16 Dose: 1 tab Zolpidem Tartrate (Ambien) 5 mg PO HS PRN; Protocol PRN Reason: Insomnia - Labs Labs: 10/26/18 07:15 10/30/18 06:20 - Constitutional Appears: Non-toxic, No Acute Distress, Chronically Ill - Head Exam Head Exam: ATRAUMATIC, NORMOCEPHALIC - Eye Exam Eye Exam: EOMI, PERRL Pupil Exam: NORMAL ACCOMODATION, PERRL - ENT Exam ENT Exam: Mucous Membranes Moist, Normal External Ear Exam, TM's Normal Bi laterally - Neck Exam Neck Exam: Full ROM, Normal Inspection - Respiratory Exam Respiratory Exam: Clear to Ausculation Bilateral, NORMAL BREATHING PATTERN. absent: Rales, Rhonchi, Wheezes - Cardiovascular Exam Cardiovascular Exam: REGULAR RHYTHM, RRR, +S1, +S2 - GI/Abdominal Exam GI & Abdominal Exam: Soft, Normal Bowel Sounds. absent: Distended, Tenderness - Extremities Exam Extremities Exam: Full ROM, Normal Inspection - Neurological Exam Neurological Exam: Alert, Awake, CN II-XII Intact, Oriented x3 - Psychiatric Exam Psychiatric exam: Normal Affect, Normal Mood - Skin Skin Exam: Intact, Normal Color Assessment and Plan - Assessment and Plan (Free Text) Assessment: 63 yo female well known to me presenting for fevers up to 104 F. History of frequent UTI and metastatic uterine cancer. Possible dehydration as part of fever cause? Creatinine has been better in the past. As high as 3.5 to 3.8 for this hospitalization. Mild leukocytosis. Urine cultures with gram negative nick growth. Prior history of ESBL+ Pseudomonas and E.coli. Start with Meropenem IV for now. R/O sepsis. R/O UTI given patient's history. One dose of Vancomycin given. May need a dose of aminoglycoside. Will give one dose of Gentamicin. Monitor creatinine. Supportive care. No complaints other than fevers at this time. Patient otherwise comfortable. Limited options given the patient's renal function. Continue meropenem. Creatinine improving to 2.7. Fevers downtrending. Afebrile today so far. Looking for at least 10 days total of Meropenem treatment (started 10/21/2018). Because of the rules in the [facility], the patient would need to finish the Meropenem course before the stents can be replaced (apparently, patient would need to be discharged from the TRCU to have stents done and could NOT be readmitted to the TRCU). Thank you for allowing me to participate in the care of the patient, we will follow with you.
[2018-10-30] MEDS: MEROPENEM 500 MG in NS 500 MG/50 ML BAG IVPB SCH (17:08)
[2018-10-31] MEDS: MEROPENEM 500 MG in NS 500 MG/50 ML BAG IVPB SCH ×2 (05:42→17:12)
[2018-10-31 07:10] LABS: HEMOGLOBIN 9.6 g/dL (12.0-16.0); MEAN CELL VOLUME 93.9 fl (80.0-105.0); MEAN CORPUSCULAR HEMOGLOBIN 29.4 pg (25.0-35.0); MEAN CORPUSCULAR HGB CONC 31.3 g/dl (31.0-37.0); MEAN PLATELET VOLUME 8.2 fl (7.0-11.0); RBC 3.27 10^6/uL (3.5-6.1); RED CELL DISTRIBUTION WIDTH 14.5 % (11.5-14.5); WHITE BLOOD COUNT 5.6 10^3/uL (4.5-11.0)
--- NOTE | 2018-10-31 09:42 | PN ---
DATE: 10/31/2018 SUBJECTIVE: This 63-year-old female was examined at her bedside on the afternoon of 10/30/2018 and this was in the presence of her sister and case was reviewed in detail with nurse, Lisa Hunter, registered nurse. The patient was out of bed to chair. She was able to perform respiratory incentive spirometry, and denied any fever, chills, chest pain or shortness of breath. She is on IV meropenem under the direction of Dr. Nilesh Lloyd from Infectious Disease and is being scheduled for bilateral ureteral stent changing by Dr. Yadiel Weinberg later this week. PHYSICAL EXAMINATION: VITAL SIGNS: Her temperature is 97.6, respirations 16, pulse 92 and blood pressure 172/96 with a pulse ox of 100% room air. Physical exam is unchanged. LABORATORY DATA: Labs show white count 3500, hemoglobin 9.2, hematocrit 29.1, platelets 248,000. Sodium 143, K 4.9, chloride 114. Bicarb 19, BUN 48, creatinine 3. Estimated GFR 16 mL per minute with a glucose of 106 and a calcium of 8.8. IMPRESSION: This is a 63-year-old female with Klebsiella pneumoniae urinary tract infection, urosepsis, chronic renal failure stage IV, obesity, metastatic stage IV uterine cancer with bilateral hydronephrosis necessitating the need for bilateral ureteral stents and comorbidities of chronic insomnia, obesity, hypertension, urinary incontinence, anemia of chronic disease, iron-deficiency anemia, hypertension, hyperlipidemia, obstipation, and degenerative arthritis. PLAN: The plan, as discussed with the patient and her sister at bedside, will be to continue medication including p.r.n. Ambien, Cardura, clonidine, Ditropan, Femara, Fergon, Lipitor, Lopressor, IV meropenem, MiraLax, nitroglycerin ointment for accelerated hypertension, Procardia XL, Tylenol p.r.n. and Ultracet p.r.n.. She will be scheduled for bilateral ureteral stent replacement. She continues to be encouraged to perform incentive spirometry. She continues on heart-healthy renal diet, isolation precautions with physical and occupational therapy being received daily. Ultimate plan will be for discharge to home when medically stable. Greater than 35 minutes was spent in the care management, review of labs, orders, x-rays and discussion of orders and care for this patient with nursing, family, and the patient. All questions were answered. Luisa Pa MD
[2018-10-31] MEDS: Nystatin 100,000 Units/gm Topical Pow(15 gm) TOP SCH ×2 (10:00→17:13)
[2018-10-31] MEDS: NIFEdipine 60 mg ER Tab PO SCH (10:00)
[2018-10-31] MEDS: POLYETHYLENE GLYCOL 3350 17 GM/Dose PACKET PO SCH (10:03)
[2018-10-31] MEDS: TraMADol/Apap 37.5/325 mg Tab PO PRN (10:05)
[2018-10-31] MEDS: Ammonium Lactate 12% Cream (140 g) TOP SCH (11:45)
--- NOTE | 2018-10-31 12:52 | PN ---
DATE: 10/31/2018 SUBJECTIVE: This 63-year-old female was examined at her bedside on the morning of Wednesday, October 31, 2018. This case was reviewed in detail with her registered nurse. The patient is out of bed to chair. She had a low grade fever last night of 100. She denies any fever, chills, chest pain or shortness of breath. OBJECTIVE: VITAL SIGNS: On physical exam at present blood pressure was 118/62 with a pulse of 61. HEENT: Head: Normocephalic, atraumatic. Eyes: No icterus. Ears: Clear. Throat: Noninjected. NECK: Supple. HEART: S1 and S2. LUNGS: Clear. ABDOMEN: Soft. EXTREMITIES: No edema. SKIN: Without rash. NEUROLOGICAL: Intact. PSYCHOLOGICAL: Alert. VASCULAR: Legs warm to touch. LABORATORY DATA: White count 5600, hemoglobin 9.6, hematocrit 30.7, platelets 312,000. Sodium 143, K 4.9, chloride 114, bicarb 19, BUN 48, creatinine 3.0, random blood sugar 100, calcium 8.8. IMPRESSION: A 63-year-old female with metastatic stage IV uterine cancer, now with Klebsiella pneumoniae urinary tract infection, urosepsis, chronic renal failure stage IV, bilateral ureteral stents on a chronic basis for obstructive uropathy secondary to uterine cancer with obesity, insomnia, hypertension, urinary incontinence, anemia of chronic disease, iron-deficiency anemia, hyperlipidemia, chronic degenerative arthritis. PLAN: At present is to continue p.r.n. Ambien, Cardura, clonidine, Ditropan, Femara, Fergon, Lipitor, Lopressor, IV meropenem, MiraLax, nitroglycerin to chest wall for accelerated hypertension, Procardia, Tylenol and p.r.n. Ultracet. I will order a repeat urine culture and sensitivity. She continues on physical therapy. She is being scheduled for bilateral ureteral stent replacement this , and I will order Atarax for itch and Lac-Hydrin skin cream for dry skin syndrome. Greater than 35 minutes was spent in the care management, review of labs, orders, x-rays and discussion of this patient with her , Joe at the bedside as well as nurse, Deepthi. Luisa Pa MD [facility] # [id number] [facility]
--- NOTE | 2018-10-31 16:39 | CP.PCM.PN ---
Subjective - Date & Time of Evaluation Date of Evaluation: 10/31/18 Time of Evaluation: 15:00 - Subjective Subjective: Infectious Disease Follow Up: October 31, 2018 63 yo female with known history of metastatic uterine carcinoma. The patient was brought into [facility] [place] for fevers of 102 F at home. Fevers up to 105 F in the past 24 hours. Came to ER on 10/20/2018 and sent home when UA and influenza testing was found to be negative. Mild leukocytosis now of 11.1. Afebrile today. Creatinine remains high at 2.8 but improving. ESBL+ Klebsiella in urine cultures. On Meropenem for treatment that required a few days to break the patient's fever. Patient overall feeling better. CT abd/pelvis didn't show any new findings. CT Head showing Mild atrophy and chronic microvascular ischemic disease with sub centimeter encephalomalacia at the left basal ganglia/coronal radiata likely representing chronic lacunar infarct. Creatinine remains high at 3.0 on last check. Patient with no new complaints. Remains afebrile. Objective - Vital Signs/Intake and Output Vital Signs (last 24 hours): Temp Pulse Resp BP Pulse Ox 100 F H 61 16 118/62 100 10/30/18 18:24 10/31/18 10:00 10/30/18 10:00 10/31/18 10:00 10/30/18 10:00 Intake and Output: 10/31/18 10/31/18 06:59 18:59 Intake Total 420 Balance 420 - Medications Medications: Current Medications Acetaminophen (Tylenol 325mg Tab) 650 mg PO Q6H PRN; Protocol PRN Reason: Fever >100.4 F Last Admin: 10/30/18 18:24 Dose: 650 mg Atorvastatin Calcium (Lipitor) 10 mg PO HS JAMARI; Protocol Last Admin: 10/30/18 21:54 Dose: 10 mg Clonidine HCl (Catapres) 0.2 mg PO Q12 [facility]; Protocol Last Admin: 10/31/18 09:56 Dose: Not Given Doxazosin Mesylate (Cardura) 4 mg PO HS JAMARI; Protocol Last Admin: 10/30/18 21:50 Dose: 4 mg Ferrous Gluconate (Fergon) 324 mg PO DAILY J[facility]ARI; Protocol Last Admin: 10/31/18 09:59 Dose: 324 mg Hydroxyzine HCl (Atarax) 25 mg PO Q6H PRN PRN Reason: PURITIS Last Admin: 10/31/18 14:32 Dose: 25 mg Meropenem/Sodium Chloride (Merrem Iv 500 Mg/Ns 50 Ml) 500 mg in 50 mls @ 100 mls/hr IVPB 0600,1800 [facility]; Protocol Last Admin: 10/31/18 05:42 Dose: 100 mls/hr Lactic Acid (Lac-Hydrin 12% Cream (140 G)) 0 ea TOP DAILY JAMARI Letrozole (Femara) 2.5 mg PO DAILY J[facility]I; Protocol Last Admin: 10/31/18 09:57 Dose: 2.5 mg Metoprolol Tartrate (Lopressor) 50 mg PO 0800,1800 [facility]; Protocol Last Admin: 10/31/18 08:02 Dose: 50 mg Nifedipine (Procardia Xl) 120 mg PO DAILY [facility]; Protocol Last Admin: 10/31/18 10:00 Dose: 120 mg Nitroglycerin (Nitro-Bid 2% Oint) 1 ea TOP Q4H PRN; Protocol PRN Reason: hypertension Last Admin: 10/30/18 18:25 Dose: 1 ea Nystatin (Nystop Topical Powder) 0 gm TOP BID JAMARI Last Admin: 10/31/18 10:00 Dose: 1 applic Oxybutynin Chloride (Ditropan Tab) 5 mg PO BID [facility] Last Admin: 10/31/18 09:57 Dose: 5 mg Polyethylene Glycol (Miralax) 17 gm PO DAILY JAMARI; Protocol Last Admin: 10/31/18 10:03 Dose: 17 gm Tramadol/Acetaminophen (Ultracet 37.5/325 Mg) 1 tab PO Q12H PRN PRN Reason: Pain, moderate (4-7) Last Admin: 10/31/18 10:05 Dose: 1 tab Zolpidem Tartrate (Ambien) 5 mg PO HS PRN; Protocol PRN Reason: Insomnia - Labs Labs: 10/31/18 06:00 10/30/18 06:20 - Constitutional Appears: Non-toxic, No Acute Distress, Chronically Ill - Head Exam Head Exam: ATRAUMATIC, NORMOCEPHALIC - Eye Exam Eye Exam: EOMI, PERRL Pupil Exam: NORMAL ACCOMODATION, PERRL - ENT Exam ENT Exam: Mucous Membranes Moist, Normal External Ear Exam, TM's Normal Bilaterally - Neck Exam Neck Exam: Full ROM, Normal Inspection - Respiratory Exam Respiratory Exam: Clear to Ausculation Bilateral, NORMAL BREATHING PATTERN. absent: Rales, Rhonchi, Wheezes - Cardiovascular Exam Cardiovascular Exam: REGULAR RHYTHM, RRR, +S1, +S2 - GI/Abdominal Exam GI & Abdominal Exam: Soft, Normal Bowel Sounds. absent: Distended, Tenderness - Extremities Exam Extremities Exam: Full ROM, Normal Inspection - Neurological Exam Neurological Exam: Alert, Awake, CN II-XII Intact, Oriented x3 - Psychiatric Exam Psychiatric exam: Normal Affect, Normal Mood - Skin Skin Exam: Intact, Normal Color Assessment and Plan - Assessment and Plan (Free Text) Assessment: 63 yo female well known to me presenting for fevers up to 104 F. History of frequent UTI and metastatic uterine cancer. Possible dehydration as part of fever cause? Creatinine has been better in the past. As high as 3.5 to 3.8 for this hospitalization. Mild leukocytosis. Urine cultures with gram negative nick growth. Prior history of ESBL+ Pseudomonas and E.coli. Start with Meropenem IV for now. R/O sepsis. R/O UTI given patient's history. One dose of Vancomycin given. May need a dose of aminoglycoside. Will give one dose of Gentamicin. Monitor creatinine. Supportive care. No complaints other than fevers at this time. Patient otherwise comfortable. Limited options given the patient's renal function. Continue meropenem. Creatinine improving to 3.0. Fevers downtrending. Afebrile today so far. Looking for at least 10 days total of Meropenem treatment (started 10/21/2018). Because of the rules in the [facility], the patient would need to finish the Meropenem course before the stents can be replaced (apparently, patient would need to be discharged from the [facility]CU to have stents done and could NOT be readmitted to the TR). At this point, can consider performing the stent replacement from 11/01/2018 on. Thank you for allowing me to participate in the care of the patient, we will follow with you.
[2018-11-01] MEDS: MEROPENEM 500 MG in NS 500 MG/50 ML BAG IVPB SCH ×2 (05:50→17:29)
[2018-11-01 07:38] LABS: CALCIUM 8.9 mg/dL (8.4-10.5)
--- NOTE | 2018-11-01 08:48 | PCM.URO ---
Urology Progress Note - Objective Lab Studies: Reviewed (gu plans: cysto /stent tomorrow 11/[address] woods and dr zhang) Lab Results Last 24 Hours: Laboratory Results - last 24 hr 11/01/18 06:50 Sodium 140 Potassium 4.5 Chloride 109 H Carbon Dioxide 19 L Anion Gap 17 BUN 52 H Creatinine 3.6 H Est GFR ( Amer) 15 Est GFR (Non-Af Amer) 13 Random Glucose 118 H Calcium 8.9 Intake & Output: Intake & Output 10/31/18 11/01/18 11/01/18 18:59 06:59 18:59 Intake Total 420 240 Output Total 750 Balance 420 -510 Intake: Oral 420 240 Output: Urine 750 Urine, Voided 750 Other: # Voids Urine, Voided 3 # Bowel Movements 1 0 Vital Signs: Vital Signs - 24 hr 10/31/18 10/31/18 10/31/18 09:56 10:00 16:00 Temperature 98 F 98 F Pulse Rate 61 66 73 Respiratory 16 20 Rate Blood Pressure 118/62 118/62 159/78 H O2 Sat by Pulse 97 100 Oximetry 10/31/18 10/31/18 11/01/18 17:11 21:18 08:03 Temperature Pulse Rate 73 74 86 Respiratory Rate Blood Pressure 159/78 H 118/72 146/63 O2 Sat by Pulse Oximetry
[2018-11-01] MEDS: NIFEdipine 60 mg ER Tab PO SCH (09:29)
[2018-11-01] MEDS: Nystatin 100,000 Units/gm Topical Pow(15 gm) TOP SCH ×2 (09:30→17:23)
[2018-11-01] MEDS: Ammonium Lactate 12% Cream (140 g) TOP SCH (09:30)
[2018-11-01] MEDS: POLYETHYLENE GLYCOL 3350 17 GM/Dose PACKET PO SCH (09:30)
[2018-11-01] MEDS: TraMADol/Apap 37.5/325 mg Tab PO PRN ×2 (09:35→21:11)
--- NOTE | 2018-11-01 14:00 | PN ---
DATE: 11/01/2018 SUBJECTIVE: This 63-year-old female was examined at her bedside in the presence of her , Joe and nurse, Denise Pizano, registered nurse. The patient was also at the bedside with her physical therapist. She is alert, oriented and denying any fever, chills, chest pain, or shortness of breath. PHYSICAL EXAMINATION: VITAL SIGNS: Temperature is 98, respirations 20, pulse 89, and blood pressure 135/67. The remainder of her physical exam is unchanged. LABORATORY DATA: White count 5600, hemoglobin 9.6, hematocrit 30.7, Sodium 140, K 4.5, chloride 109, bicarb 19, BUN 52, creatinine 3.6, random blood sugar 118. Repeat urine culture is pending. IMPRESSION: A 63-year-old female with Klebsiella pneumoniae urinary tract infection and urosepsis and comorbidities of obesity, metastatic stage IV uterine cancer, bilateral hydronephrosis being treated with bilateral ureteral stents with chronic renal failure stage IV, chronic insomnia, hypertension, urinary incontinence, iron-deficiency anemia, anemia of chronic disease, hyperlipidemia, chronic renal failure stage IV, and degenerative arthritis. The patient will continue on Ambien, Atarax Cardura, clonidine, Ditropan, Femara, Fergon, Lac-Hydrin skin cream, Lipitor, Lopressor, IV meropenem, MiraLax, Nitro-Bid ointment, Procardia, Tylenol, and Ultracet. The patient will be scheduled for bilateral ureteral stent change tomorrow upon the completion of intravenous antibiotics and will continue to be followed as an outpatient by her oncologist, Dr. Kathy Umana, oncologist. All of the above was discussed with the patient, , and nursing. All questions were answered. Luisa Pa MD KEO
--- NOTE | 2018-11-01 20:03 | CP.PCM.PN ---
Subjective - Date & Time of Evaluation Date of Evaluation: 11/01/18 Time of Evaluation: 18:00 - Subjective Subjective: Infectious Disease Follow Up: November 01, 2018 63 yo female with known history of metastatic uterine carcinoma. The patient was brought into [facility] [place] for fevers of 102 F at home. Fevers up to 105 F in the past 24 hours. Came to ER on 10/20/2018 and sent home when UA and influenza testing was found to be negative. Mild leukocytosis now of 11.1. Afebrile today. Creatinine remains high at 2.8 but improving. ESBL+ Klebsiella in urine cultures. On Meropenem for treatment that required a few days to break the patient's fever. Patient overall feeling better. CT abd/pelvis didn't show any new findings. CT Head showing Mild atrophy and chronic microvascular ischemic disease with sub centimeter encephalomalacia at the left basal ganglia/coronal radiata likely representing chronic lacunar infarct. Creatinine remains high at 3.0 on last check. Patient with no new complaints. Remains afebrile. Cleared for stenting with urology tomorrow. Objective - Vital Signs/Intake and Output Vital Signs (last 24 hours): Temp Pulse Resp BP Pulse Ox 98.1 F 64 18 154/81 H 98 11/01/18 16:00 11/01/18 17:22 11/01/18 16:00 11/01/18 17:22 11/01/18 16:00 Intake and Output: 11/01/18 11/02/18 18:59 06:59 Intake Total 420 Balance 420 - Medications Medications: Current Medications Acetaminophen (Tylenol 325mg Tab) 650 mg PO Q6H PRN; Protocol PRN Reason: Fever >100.4 F Last Admin: 10/30/18 18:24 Dose: 650 mg Atorvastatin Calcium (Lipitor) 10 mg PO HS JAMARI; Protocol Last Admin: 10/31/18 21:19 Dose: 10 mg Clonidine HCl (Catapres) 0.2 mg PO Q12 [facility]; Protocol Last Admin: 11/01/18 09:28 Dose: 0.2 mg Doxazosin Mesylate (Cardura) 4 mg PO HS J[facility]ARI; Protocol Last Admin: 10/31/18 21:18 Dose: 4 mg Ferrous Gluconate (Fergon) 324 mg PO DAILY [facility]; Protocol Last Admin: 11/01/18 09:31 Dose: 324 mg Hydroxyzine HCl (Atarax) 25 mg PO Q6H PRN PRN Reason: PURITIS Last Admin: 11/01/18 06:38 Dose: 25 mg Meropenem/Sodium Chloride (Merrem Iv 500 Mg/Ns 50 Ml) 500 mg in 50 mls @ 100 mls/hr IVPB 0600,1800 [facility]; Protocol Last Admin: 11/01/18 17:29 Dose: 100 mls/hr Lactic Acid (Lac-Hydrin 12% Cream (140 G)) 0 ea TOP DAILY JAMARI Last Admin: 11/01/18 09:30 Dose: Not Given Letrozole (Femara) 2.5 mg PO DAILY [facility]; Protocol Last Admin: 11/01/18 09:28 Dose: 2.5 mg Metoprolol Tartrate (Lopressor) 50 mg PO 0800,1800 [facility]; Protocol Last Admin: 11/01/18 17:22 Dose: 50 mg Nifedipine (Procardia Xl) 120 mg PO DAILY [facility]I; Protocol Last Admin: 11/01/18 09:29 Dose: 120 mg Nitroglycerin (Nitro-Bid 2% Oint) 1 ea TOP Q4H PRN; Protocol PRN Reason: hypertension Last Admin: 10/30/18 18:25 Dose: 1 ea Nystatin (Nystop Topical Powder) 0 gm TOP BID [facility]I Last Admin: 11/01/18 17:23 Dose: 1 applic Oxybutynin Chloride (Ditropan Tab) 5 mg PO BID [facility]I Last Admin: 11/01/18 17:23 Dose: 5 mg Polyethylene Glycol (Miralax) 17 gm PO DAILY [facility]; Protocol Last Admin: 11/01/18 09:30 Dose: 17 gm Tramadol/Acetaminophen (Ultracet 37.5/325 Mg) 1 tab PO Q12H PRN PRN Reason: Pain, moderate (4-7) Last Admin: 11/01/18 09:35 Dose: 1 tab Zolpidem Tartrate (Ambien) 5 mg PO HS PRN; Protocol PRN Reason: Insomnia - Labs Labs: 10/31/18 06:00 11/01/18 06:50 - Constitutional Appears: Non-toxic, No Acute Distress, Chronically Ill - Head Exam Head Exam: ATRAUMATIC, NORMOCEPHALIC - Eye Exam Eye Exam: EOMI, PERRL Pupil Exam: NORMAL ACCOMODATION, PERRL - ENT Exam ENT Exam: Mucous Membranes Moist, Normal External Ear Exam, TM's Normal Bilaterally - Neck Exam Neck Exam: Full ROM, Normal Inspection - Respiratory Exam Respiratory Exam: Clear to Ausculation Bilateral, NORMAL BREATHING PATTERN. absent: Rales, Rhonchi, Wheezes - Cardiovascular Exam Cardiovascular Exam: REGULAR RHYTHM, RRR, +S1, +S2 - GI/Abdominal Exam GI & Abdominal Exam: Soft, Normal Bowel Sounds. absent: Distended, Tenderness - Extremities Exam Extremities Exam: Full ROM, Normal Inspection - Neurological Exam Neurological Exam: Alert, Awake, CN II-XII Intact, Oriented x3 - Psychiatric Exam Psychiatric exam: Normal Affect, Normal Mood - Skin Skin Exam: Intact, Normal Color Assessment and Plan - Assessment and Plan (Free Text) Assessment: 63 yo female well known to me presenting for fevers up to 104 F. History of frequent UTI and metastatic uterine cancer. Possible dehydration as part of fever cause? Creatinine has been better in the past. As high as 3.5 to 3.8 for this hospitalization. Mild leukocytosis. Urine cultures with gram negative nick growth. Prior history of ESBL+ Pseudomonas and E.coli. Start with Meropenem IV for now. R/O sepsis. R/O UTI given patient's history. One dose of Vancomycin given. May need a dose of aminoglycoside. Will give one dose of Gentamicin. Monitor creatinine. Supportive care. No complaints other than fevers at this time. Patient otherwise comfortable. Limited options given the patient's renal function. Continue meropenem. Creatinine improving to 3.0. Fevers downtrending. Afebrile today so far. Looking for at least 10 days total of Meropenem treatment (started 10/21/2018). Because of the rules in the [facility], the patient would need to finish the Meropenem course before the stents can be replaced (apparently, patient would need to be discharged from the TRCU to have stents done and could NOT be readmitted to the TR). At this point, can consider performing the stent replacement from 11/01/2018 on. Cleared from ID perspective to have stent replaced on 11/02/2018. Thank you for allowing me to participate in the care of the patient, we will follow with you.
[2018-11-02] MEDS: MEROPENEM 500 MG in NS 500 MG/50 ML BAG IVPB SCH ×2 (05:20→17:14)
[2018-11-02] MEDS: NIFEdipine 60 mg ER Tab PO SCH (11:00)
[2018-11-02] MEDS: POLYETHYLENE GLYCOL 3350 17 GM/Dose PACKET PO SCH (12:27)
[2018-11-02] MEDS: Nystatin 100,000 Units/gm Topical Pow(15 gm) TOP SCH ×2 (12:28→17:14)
[2018-11-02] MEDS: Ammonium Lactate 12% Cream (140 g) TOP SCH (12:31)
--- NOTE | 2018-11-02 12:36 | RAD ---
Date of service: 11/02/2018 HISTORY: stent placement COMPARISON: 10/03/2018 FINDINGS: BOWEL: Normal. No obstruction. No free air. BONES: Normal. OTHER FINDINGS: AP and oblique views were obtained showing multiple phleboliths in the pelvis. No definite stones seen along the ureteral stents. The previous study contained only one view IMPRESSION: No active disease.
--- NOTE | 2018-11-02 15:36 | US ---
Date of service: 11/02/2018 PROCEDURE: Ultrasound of the Bladder HISTORY: retention and stent placement and r/o mass COMPARISON: None available. TECHNIQUE: Sonographic evaluation of the bladder was performed. FINDINGS: Unremarkable without wall thickening or intraluminal debris. No calculus or gross mass lesion. No free fluid in pelvis. Ureteral jets are not seen. A stent catheter can be seen within the bladder on the left side Prevoid Volume: 276 cc. Post void residual: 68 cc. IMPRESSION: Solid mass or clot in the bladder measuring 3.18 x 1.76 x 3.51 cm.
--- NOTE | 2018-11-03 00:42 | CP.PCM.PN ---
Subjective - Date & Time of Evaluation Date of Evaluation: 11/02/18 Time of Evaluation: 23:30 - Subjective Subjective: Infectious Disease Follow Up: November 02, 2018 63 yo female with known history of metastatic uterine carcinoma. The patient was brought into [facility] [place] for fevers of 102 F at home. Fevers up to 105 F in the past 24 hours. Came to ER on 10/20/2018 and sent home when UA and influenza testing was found to be negative. Mild leukocytosis now of 11.1. Afebrile today. Creatinine remains high at 2.8 but improving. ESBL+ Klebsiella in urine cultures. On Meropenem for treatment that required a few days to break the patient's fever. Patient overall feeling better. CT abd/pelvis didn't show any new findings. CT Head showing Mild atrophy and chronic microvascular ischemic disease with sub centimeter encephalomalacia at the left basal ganglia/coronal radiata likely representing chronic lacunar infarct. Creatinine remains high at 3.0 on last check. Patient with no new complaints. Remains afebrile. Urine culture showing gram positive cocci > 100,000 CFU/ml. Spoke with Dr. Weinberg. Objective - Vital Signs/Intake and Output Vital Signs (last 24 hours): Temp Pulse Resp BP Pulse Ox 98.3 F 70 18 122/70 100 11/02/18 16:00 11/02/18 21:30 11/02/18 16:00 11/02/18 21:30 11/02/18 16:00 Intake and Output: 11/02/18 11/03/18 18:59 06:59 Intake Total 0 Balance 0 - Medications Medications: Current Medications Acetaminophen (Tylenol 325mg Tab) 650 mg PO Q6H PRN; Protocol PRN Reason: Fever >100.4 F Last Admin: 10/30/18 18:24 Dose: 650 mg Atorvastatin Calcium (Lipitor) 10 mg PO HS JAMARI; Protocol Last Admin: 11/02/18 21:30 Dose: 10 mg Clonidine HCl (Catapres) 0.2 mg PO Q12 JAMARI; Protocol Last Admin: 11/02/18 21:30 Dose: Not Given Doxazosin Mesylate (Cardura) 4 mg PO HS JAMARI; Protocol Last Admin: 11/02/18 21:29 Dose: 4 mg Ferrous Gluconate (Fergon) 324 mg PO DAILY J[facility]ARI; Protocol Last Admin: 11/02/18 11:00 Dose: 324 mg Hydroxyzine HCl (Atarax) 25 mg PO Q6H PRN PRN Reason: PURITIS Last Admin: 11/01/18 06:38 Dose: 25 mg Meropenem/Sodium Chloride (Merrem Iv 500 Mg/Ns 50 Ml) 500 mg in 50 mls @ 100 mls/hr IVPB 0600,1800 [facility]; Protocol Last Admin: 11/02/18 17:14 Dose: 100 mls/hr Lactic Acid (Lac-Hydrin 12% Cream (140 G)) 0 ea TOP DAILY JAMARI Last Admin: 11/02/18 12:31 Dose: 1 dose Letrozole (Femara) 2.5 mg PO DAILY [facility]I; Protocol Last Admin: 11/02/18 12:25 Dose: 2.5 mg Metoprolol Tartrate (Lopressor) 50 mg PO 0800,1800 [facility]; Protocol Last Admin: 11/02/18 17:13 Dose: 50 mg Nifedipine (Procardia Xl) 120 mg PO DAILY [facility]ARI; Protocol Last Admin: 11/02/18 11:00 Dose: 120 mg Nitroglycerin (Nitro-Bid 2% Oint) 1 ea TOP Q4H PRN; Protocol PRN Reason: hypertension Last Admin: 10/30/18 18:25 Dose: 1 ea Nystatin (Nystop Topical Powder) 0 gm TOP BID JAMARI Last Admin: 11/02/18 17:14 Dose: 1 applic Oxybutynin Chloride (Ditropan Tab) 5 mg PO BID JAMARI Last Admin: 11/02/18 17:13 Dose: 5 mg Polyethylene Glycol (Miralax) 17 gm PO DAILY [facility]I; Protocol Last Admin: 11/02/18 12:27 Dose: 17 gm Tramadol/Acetaminophen (Ultracet 37.5/325 Mg) 1 tab PO Q12H PRN PRN Reason: Pain, moderate (4-7) Last Admin: 11/01/18 21:11 Dose: 1 tab Zolpidem Tartrate (Ambien) 5 mg PO HS PRN; Protocol PRN Reason: Insomnia - Labs Labs: 10/31/18 06:00 11/01/18 06:50 - Constitutional Appears: Non-toxic, No Acute Distress, Chronically Ill - Head Exam Head Exam: ATRAUMATIC, NORMOCEPHALIC - Eye Exam Eye Exam: EOMI, PERRL Pupil Exam: NORMAL ACCOMODATION, PERRL - ENT Exam ENT Exam: Mucous Membranes Moist, Normal External Ear Exam, TM's Normal Bilaterally - Neck Exam Neck Exam: Full ROM, Normal Inspection - Respiratory Exam Respiratory Exam: Clear to Ausculation Bilateral, NORMAL BREATHING PATTERN. absent: Rales, Rhonchi, Wheezes - Cardiovascular Exam Cardiovascular Exam: REGULAR RHYTHM, RRR, +S1, +S2 - GI/Abdominal Exam GI & Abdominal Exam: Soft, Normal Bowel Sounds. absent: Distended, Tenderness - Extremities Exam Extremities Exam: Full ROM, Normal Inspection - Neurological Exam Neurological Exam: Alert, Awake, CN II-XII Intact, Oriented x3 - Psychiatric Exam Psychiatric exam: Normal Affect, Normal Mood - Skin Skin Exam: Intact, Normal Color Assessment and Plan - Assessment and Plan (Free Text) Assessment: 63 yo female well known to me presenting for fevers up to 104 F. History of frequent UTI and metastatic uterine cancer. Possible dehydration as part of fever cause? Creatinine has been better in the past. As high as 3.5 to 3.8 for this hospitalization. Mild leukocytosis. Urine cultures with gram negative nick growth. Prior history of ESBL+ Pseudomonas and E.coli. Start with Meropenem IV for now. R/O sepsis. R/O UTI given patient's history. One dose of Vancomycin given. May need a dose of aminoglycoside. Will give one dose of Gentamicin. Monitor creatinine. Supportive care. No complaints other than fevers at this time. Patient otherwise comfortable. Limited options given the patient's renal function. Continue meropenem. Creatinine improving to 3.0. Fevers downtrending. Afebrile today so far. Looking for at least 10 days total of Meropenem treatment (started 10/21/2018). Because of the rules in the [facility], the patient would need to finish the Meropenem course before the stents can be replaced (apparently, patient would need to be discharged from the TRCU to have stents done and could NOT be readmitted to the TR). At this point, can consider performing the stent replacement from 11/01/2018 on. Urine cultures showing gram positive cocci > 100,000 CFU/ml Thank you for allowing me to participate in the care of the patient, we will follow with you.
[2018-11-03] MEDS: MEROPENEM 500 MG in NS 500 MG/50 ML BAG IVPB SCH (06:31)
[2018-11-03 06:36] VITALS: RESP 20; TEMP 98; O2SAT 97
[2018-11-03] MEDS: POLYETHYLENE GLYCOL 3350 17 GM/Dose PACKET PO SCH (09:12)
[2018-11-03] MEDS: Ammonium Lactate 12% Cream (140 g) TOP SCH (09:12)
[2018-11-03] MEDS: NIFEdipine 60 mg ER Tab PO SCH (09:13)
[2018-11-03] MEDS: Nystatin 100,000 Units/gm Topical Pow(15 gm) TOP SCH (09:13)
[2018-11-03 09:18] VITALS: BP 111/69; PULSE 60
--- NOTE | 2018-11-05 17:39 | PN ---
DATE: 11/02/2018 SUBJECTIVE: This 63-year-old female was examined at her bedside on the morning of , 11/02/2018 in the presence of her nurse, Deepthi Encarnacion registered nurse and Joe. At the time of my interview, her urine culture was showing gram-positive cocci, identification and sensitivity to follow. This was reviewed with patient, , nursing and Dr. Nilesh Lloyd who all concurred that cystoscopy with bilateral ureteral stents should be withheld pending identification of the urine culture organism while continuing on IV antibiotics. PHYSICAL EXAMINATION: VITAL SIGNS: Temperature was 98.2, respirations 18, pulse 57 and blood pressure 136/48. Physical exam was unchanged. IMPRESSION: A 63-year-old female with urinary tract infection recently Klebsiella pneumoniae, now showing new urine culture positive for gram-positive cocci, sensitivity and identification to follow with comorbidities of chronic renal failure stage IV, chronic hypertension, obesity, metastatic uterine cancer stage IV causing bilateral hydronephrosis requiring chronic ureteral stents and anemia of chronic disease, iron-deficiency anemia, hyperlipidemia. PLAN: Plan will be to continue Cardura, clonidine, Ditropan, Femara, Fergon, Lipitor, Lopressor, Procardia XL, gentle IV fluids and IV meropenem. Based on clinical results, additional diagnostic workup and testing will be entertained. Luisa Pa MD MTDD
--- NOTE | 2018-11-05 18:36 | DS ---
DATE OF DISCHARGE: 11/03/2018. DISPOSITION: [facility] ER for admission to the medical unit for further treatment of Enterococcus faecalis urinary tract infection. FINAL DIAGNOSES: Urinary tract infection, status post urosepsis; chronic renal failure, stage 4; chronic hypertension; obesity; metastatic uterine cancer, stage IV; urinary incontinence; iron-deficiency anemia; anemia of chronic disease; hyperlipidemia; degenerative arthritis. DISCHARGE MEDICATIONS: Cardura, clonidine, Ditropan, Femara, Fergon, Lac-Hydrin cream, Lipitor, Lopressor, Procardia XL. SUMMARY: This is a 63-year-old female who was admitted to [facility] for IV antibiotic therapy for urinary tract infection with comorbidity of urosepsis, was found to have a new urinary tract infection growing gram-positive cocci, which was identified as Enterococcus faecalis. The patient was being scheduled for bilateral ureteral stent replacement this morning; however, given her new findings of urinary tract infection with Enterococcus, this will be withheld at present while she is being further evaluated for appropriate antibiotic therapy. The patient is being transferred to the [facility] ER and will be admitted for treatment of the above. Luisa Pa MD MTDD
== END 2018-11-03 11:55 | disposition short-term general hospital (02) | DRG 690 ==
LOC: TRCU 15:24
PROVIDERS: ADMIT Internal Medicine; ATTEND Internal Medicine
PROC: F07Z9FZ Gait Training/Functional Ambulation Treatment using Assistive, Adaptive, Supportive or Protective Equipment (ICD-10-PCS; principal; 2018-10-27)
PROC: F07Z8FZ Transfer Training Treatment using Assistive, Adaptive, Supportive or Protective Equipment (ICD-10-PCS; 2018-10-27)
PROC: F07L6YZ Therapeutic Exercise Treatment of Musculoskeletal System - Lower Back / Lower Extremity using Other Equipment (ICD-10-PCS; 2018-10-27)
PROC: F08Z1FZ Dressing Techniques Treatment using Assistive, Adaptive, Supportive or Protective Equipment (ICD-10-PCS; 2018-10-28)
PROC: F08Z0FZ Bathing/Showering Techniques Treatment using Assistive, Adaptive, Supportive or Protective Equipment (ICD-10-PCS; 2018-10-28)
DX: N39.0 Urinary tract infection, site not specified (principal); C78.7 Secondary malignant neoplasm of liver and intrahepatic bile duct; N18.4 Chronic kidney disease, stage 4 (severe); C55 Malignant neoplasm of uterus, part unspecified; I12.9 Hypertensive chronic kidney disease with stage 1 through stage 4 chronic kidney disease, or unspecified chronic kidney disease; B95.2 Enterococcus as the cause of diseases classified elsewhere; G93.89 Other specified disorders of brain; D50.9 Iron deficiency anemia, unspecified; D63.8 Anemia in other chronic diseases classified elsewhere; E78.5 Hyperlipidemia, unspecified; K27.9 Peptic ulcer, site unspecified, unspecified as acute or chronic, without hemorrhage or perforation; M19.90 Unspecified osteoarthritis, unspecified site; K21.9 Gastro-esophageal reflux disease without esophagitis; F51.04 Psychophysiologic insomnia; R32 Unspecified urinary incontinence; K59.00 Constipation, unspecified; N13.30 Unspecified hydronephrosis; Z96.0 Presence of urogenital implants; E66.9 Obesity, unspecified; Z68.36 Body mass index [BMI] 36.0-36.9, adult; Z86.73 Personal history of transient ischemic attack (TIA), and cerebral infarction without residual deficits

== ENCOUNTER 2018-11-03 11:54 | Inpatient (IN) | payer MEDICARE, BC ==
[2018-11-03 11:55] VITALS: BMI 36.4
[2018-11-03 14:13] LABS: BASO # 0.02 K/mm3 (0.0-2.0); BASO % 0.3 % (0.0-3.0); EOS # 0.2 (0.0-0.7); EOS % 3.4 % (1.5-5.0); HEMOGLOBIN 9.8 g/dL (12.0-16.0); LYMPH # 1.2 (1.2-3.4); LYMPH % 19.6 % (22.0-35.0); MEAN CELL VOLUME 95.2 fl (80.0-105.0); MEAN CORPUSCULAR HEMOGLOBIN 29.6 pg (25.0-35.0); MEAN CORPUSCULAR HGB CONC 31.1 g/dl (31.0-37.0); MEAN PLATELET VOLUME 8.4 fl (7.0-11.0); MONO # 0.7 (0.1-0.6); MONO % 11.6 % (1.0-6.0); RBC 3.31 10^6/uL (3.5-6.1); RED CELL DISTRIBUTION WIDTH 14.3 % (11.5-14.5); WHITE BLOOD COUNT 5.9 10^3/uL (4.5-11.0)
[2018-11-03 14:20] LABS: ALB/GLOB RATIO 0.8 (1.1-1.8); ALBUMIN 3.5 g/dL (3.0-4.8); CALCIUM 8.9 mg/dL (8.4-10.5)
[2018-11-03] MEDS ORDERED: Sodium Chloride 0.9% 1,000 ML IV SCH (14:30)
[2018-11-03] MEDS ORDERED: Vancomycin 1gm in NS 250ml 1 GM/250 ML BAG IVPB STA (14:31)
[2018-11-03] MEDS ORDERED: MEROPENEM 500 MG in NS 500 MG/50 ML BAG IVPB STA (14:33)
--- NOTE | 2018-11-03 14:39 | ED PDOC ---
Arrival/HPI - General Chief Complaint: Female Genitourinary Time Seen by Provider: 11/03/18 11:57 Historian: Patient, Partner - History of Present Illness Narrative History of Present Illness (Text): 11/03/18 14:43 63yr old female with hx of recurrent uti's, ureteral stents and Cancer presents today sent from TCU for another UTI despite being on meropenum. pt c/o fatigue. denies abdominal pain. no vomiting/diarrhea. no cp or sob. pt states she was scheduled to have ureteral stent placement but it was cancelled due to new infection. Patient states she has been dealing with recurrent urinary tract infections for the past year. Pt denies any other complaints. Past Medical History - Provider Review Nursing Documentation Reviewed: Yes - Travel History Have you recently traveled outside [place] w/in the past 3 mons?: No - Infectious Disease Hx of Infectious Diseases: None - Cardiac Hx Pacemaker: No - Pulmonary Hx Chronic Obstructive Pulmonary Disease (COPD): Yes - Neurological Hx Paralysis: No - HEENT Hx HEENT Disorder: Yes (uses reading glasses) - Renal Hx Renal Failure: Yes (St III) - Endocrine/Metabolic Hx Endocrine Disorders: No - Hematological/Oncological Hx Blood Transfusions: Yes (02/08/18) Hx Blood Transfusion Reaction: No - Integumentary Hx Dermatological Disorder: Yes - Musculoskeletal/Rheumatological Hx Musculoskeletal Disorders: Yes - Gastrointestinal Hx Gastrointestinal Disorders: (hx peptic ulcer,reflux, uterine ca mets to liver) - Genitourinary/Gynecological Hx Reproductive Disorders: Yes (hyst/uterine ca mets to liver) Hx Urinary Tract Infection: Yes - Psychiatric Hx Emotional Abuse: No Hx Physical Abuse: No Hx Substance Use: No - Surgical History Hx Hysterectomy: Yes - Anesthesia Hx Anesthesia Reactions: No Hx Malignant Hyperthermia: No - Suicidal Assessment Feels Threatened In Home Enviroment: No Family/Social History - Physician Review Nursing Documentation Reviewed: Yes Family/Social History: Unknown Family HX Smoking Status: Never Smoked Hx Alcohol Use: No Hx Substance Use: No Hx Substance Use Treatment: No Allergies/Home Meds Allergies/Adverse Reactions: Allergies No Known Allergies Allergy (Verified 09/02/18 18:11) Review of Systems - Review of Systems Constitutional: Fatigue. absent: Fevers Respiratory: absent: SOB, Cough Cardiovascular: absent: Chest Pain, Palpitations Gastrointestinal: absent: Abdominal Pain, Diarrhea, Vomiting Genitourinary Female: absent: Hematuria, Vaginal Bleeding Musculoskeletal: absent: Back Pain Neurological: absent: Headache, Dizziness Psychiatric: absent: Anxiety, Depression Physical Exam Vital Signs Reviewed: Yes Vital Signs Temp Pulse Resp BP Pulse Ox 11/03/18 12:18 98.0 F 62 18 116/58 L 100 Temperature: Afebrile Blood Pressure: Normal Pulse: Regular Respiratory Rate: Normal Appearance: Positive for: Well-Appearing, Non-Toxic, Comfortable Pain Distress: None Mental Status: Positive for: Alert and Oriented X 3 - Systems Exam Head: Present: Atraumatic Mouth: Present: Moist Mucous Membranes Respiratory/Chest: Present: Clear to Auscultation Cardiovascular: Present: Regular Rate and Rhythm Abdomen: No: Tenderness, Rebound, Guarding Upper Extremity: Present: Normal ROM Lower Extremity: Present: Normal ROM Neurological: Present: GCS=15, Speech Normal Skin: Present: Warm, Dry Psychiatric: Present: Alert, Oriented x 3 Medical Decision Making ED Course and Treatment: 11/03/18 14:[address] ZHANG; He advised Meropenem renal dosed and vancomycin 1G. cbc; wnl cmp; cr; 4.7 blood and urine cultures pending case discussed with dr. woods; she advised Renal US for worsening renal function. she advised consult dr. zhang and dr. castellanos. and given fluids. renal US: FINDINGS: RIGHT KIDNEY: Measures: 12.7 x 6.7 x 6.6 cm. Mildly echogenic right renal cortex noted. There is moderate right hydronephrosis. There is ureter stent seen in place. LEFT KIDNEY: Measures: 10.3 x 5.7 x 5 cm. Mildly echogenic left kidney is also noted. Moderate left hydronephrosis is also noted. There is ureter stent also seen in the collecting system of the left kidney. OTHER FINDINGS: None. IMPRESSION: Moderate bilateral hydronephrosis larger on the right. Ureteral stents are seen bilaterally. 11/03/18 14:[address] castellanos; discussed US results with him in depth. He will see patient. bladder scan 1hr after straight cath; 162ML all results and plan discussed with patient and family in depth. impression; UTI, bladder mass, LOYDA admit med/surg - Lab Interpretations Lab Results: Total Bilirubin 0.4 mg/dL (0.2-1.3) 11/03/18 14:00 AST 37 U/L (14-36) H D 11/03/18 14:00 ALT 22 U/L (7-56) 11/03/18 14:00 Alkaline Phosphatase 80 U/L (38-126) 11/03/18 14:00 Total Protein 8.1 g/dL (5.8-8.3) 11/03/18 14:00 Albumin 3.5 g/dL (3.0-4.8) 11/03/18 14:00 Globulin 4.5 gm/dL 11/03/18 14:00 Albumin/Globulin Ratio 0.8 (1.1-1.8) L 11/03/18 14:00 - RAD Interpretation Radiology Orders: 11/03/18 14:27 RENAL [US] Stat - Medication Orders Current Medication Orders: Sodium Chloride (Sodium Chloride 0.9%) 1,000 mls @ 100 mls/hr IV .Q10H JAMARI Vancomycin HCl (Vancomycin 1gm) 1 gm in 250 mls @ 167 mls/hr IVPB STAT STA; Protocol Stop: 11/03/18 16:00 Disposition/Present on Arrival - Present on Arrival Any Indicators Present on Arrival: No History of DVT/PE: No History of Uncontrolled Diabetes: No Urinary Catheter: No History of Decub. Ulcer: No History Surgical Site Infection Following: None - Disposition Have Diagnosis and Disposition been Completed?: Yes Diagnosis: UTI (urinary tract infection), Acute kidney injury superimposed on CKD, Fatigue, Bladder mass Disposition: HOSPITALIZED Disposition Time: 14:30 Patient Plan: Admission Patient Problems: Current Active Problems Problem Status Onset Acute kidney injury superimposed on CKD Acute Fatigue Acute UTI (urinary tract infection) Acute Condition: FAIR
--- NOTE | 2018-11-03 15:33 | US ---
Date of service: 11/03/2018 PROCEDURE: Ultrasound of the Kidneys HISTORY: worsening renal function COMPARISON: Comparison is made to the previous CT dated 10/23/2018 previous ultrasound of the kidneys dated 10/22/2018. TECHNIQUE: Sonogram of the kidneys. FINDINGS: RIGHT KIDNEY: Measures: 12.7 x 6.7 x 6.6 cm. Mildly echogenic right renal cortex noted. There is moderate right hydronephrosis. There is ureter stent seen in place. LEFT KIDNEY: Measures: 10.3 x 5.7 x 5 cm. Mildly echogenic left kidney is also noted. Moderate left hydronephrosis is also noted. There is ureter stent also seen in the collecting system of the left kidney. OTHER FINDINGS: None. IMPRESSION: Moderate bilateral hydronephrosis larger on the right. Ureteral stents are seen bilaterally.
[2018-11-03 15:43] LABS: PH,URINE 6.5 (4.7-8.0); URINE BILIRUBIN NEGATIVE (NEGATIVE); URINE BLOOD LARGE (NEGATIVE); URINE GLUCOSE (UA) NEGATIVE (NEGATIVE); URINE LEUKOCYTE ESTERASE LARGE Leu/uL (NEGATIVE); URINE PROTEIN 100 mg/dL (<30 mg/dL); URINE UROBILINOGEN 0.2 E.U./dL (<1 E.U./dL)
[2018-11-03 15:48] LABS: URINE APPEARANCE CLOUDY (CLEAR); URINE COLOR YELLOW (YELLOW)
[2018-11-03 15:51] LABS: URINE WBC TNTC /hpf (0-6)
[2018-11-03 15:52] LABS: URINE BACTERIA FEW /hpf
--- NOTE | 2018-11-03 17:14 | CP.PCM.CON ---
History of Present Illness - History of Present Illness History of Present Illness: Infectious Disease Consultation: November 03, 2018 63 yo female with known history of metastatic uterine carcinoma. The patient was brought into [facility] for fevers of 102 F at home. Fevers up to 105 F in the past 24 hours. Came to ER on 10/20/2018 and sent home when UA and influenza testing was found to be negative. Mild leukocytosis now of 11.1. Afebrile today. Creatinine remains high at 2.8 but improving. ESBL+ Klebsiella in urine cultures. On Meropenem for treatment that required a few days to break the patient's fever. She was placed in the TRCU to continue Meropenem. On 11/01/2018, patient spiked fever again and had urine cultures repeated. Urine appeared milky white on 11/01/2018. Enterococcus sensitive to Vancomycin noted in the urine. Transferred back to hospital for castellanos placement, antibiotic treatment for Klebsiella and Enterococcus, stent replacement prior to discharge. PMHx: Uterine Carcinoma with metastatic disease, Obesity, hypertension, anemia, hyp erlipidemia, GERDs, bilateral hydronephrosis with replaced bilateral urethral stents, chronic renal disease stage III, degenerative arthritis, and COPD PSHx: Bilateral urethral stents Allergies: NKDA Social Hx: No tobacco, no EtOH, or illicit drug use Active Medications Sodium Chloride (Sodium Chloride 0.9%) 1,000 mls @ 100 mls/hr IV .Q10H JAMARI Last Admin: 11/03/18 15:50 Dose: 100 mls/hr Family Hx: None given ROS: Patient stating fever. No headaches, dizziness, chest pain, abdominal pain, melena, hematuria, hematemesis, hematochezia, depression, anxiety Past Patient History - Infectious Disease Hx of Infectious Diseases: None - Past Social History Smoking Status: Never Smoked - CARDIAC Hx Pacemaker: No - PULMONARY Hx Chronic Obstructive Pulmonary Disease (COPD): Yes - NEUROLOGICAL Hx Paralysis: No - HEENT Hx HEENT Problems: Yes (uses reading glasses) - RENAL Hx Renal Failure: Yes (St III) - ENDOCRINE/METABOLIC Hx Endocrine Disorders: No - HEMATOLOGICAL/ONCOLOGICAL Hx Blood Transfusions: Yes (02/08/18) Hx Blood Transfusion Reaction: No - INTEGUMENTARY Hx Dermatological Problems: Yes - MUSCULOSKELETAL/RHEUMATOLOGICAL Hx Musculoskeletal Disorders: Yes - GASTROINTESTINAL Hx Gastrointestinal Disorders: (hx peptic ulcer,reflux, uterine ca mets to liver) - GENITOURINARY/GYNECOLOGICAL Hx Reproductive Disorders: Yes (hyst/uterine ca mets to liver) Hx Urinary Tract Infection: Yes - PSYCHIATRIC Hx Emotional Abuse: No Hx Physical Abuse: No Hx Substance Use: No - SURGICAL HISTORY Hx Hysterectomy: Yes - ANESTHESIA Hx Anesthesia Reactions: No Hx Malignant Hyperthermia: No Meds Allergies/Adverse Reactions: Allergies Allergy/AdvReac Type Severity Reaction Status Date / Time No Known Allergies Allergy Verified 09/02/18 18:11 - Medications Medications: Current Medications Sodium Chloride (Sodium Chloride 0.9%) 1,000 mls @ 100 mls/hr IV .Q10H JAMARI Last Admin: 11/03/18 15:50 Dose: 100 mls/hr Physical Exam - Constitutional Appears: Non-toxic, No Acute Distress, Chronically Ill - Head Exam Head Exam: ATRAUMATIC, NORMOCEPHALIC - Eye Exam Eye Exam: EOMI, PERRL Pupil Exam: NORMAL ACCOMODATION, PERRL - ENT Exam ENT Exam: Mucous Membranes Moist, Normal External Ear Exam, TM's Normal Bilaterally - Neck Exam Neck exam: Positive for: Full Rom, Normal Inspection - Respiratory Exam Respiratory Exam: Clear to Auscultation Bilateral, NORMAL BREATHING PATTERN. absent: Rales, Rhonchi, Wheezes - Cardiovascular Exam Cardiovascular Exam: REGULAR RHYTHM, RRR, +S1, +S2 - GI/Abdominal Exam GI & Abdominal Exam: Normal Bowel Sounds, Soft. absent: Distended, Tenderness - Extremities Exam Extremities exam: Positive for: full ROM, normal inspection - Neurological Exam Neurological exam: Alert, CN II-XII Intact, Oriented x3 - Psychiatric Exam Psychiatric exam: Normal Affect, Normal Mood - Skin Skin Exam: Intact, Normal Color Results - Vital Signs Recent Vital Signs: Last Vital Signs Temp 98.0 F 11/03/18 12:18 Pulse 62 11/03/18 12:18 Resp 18 11/03/18 12:18 BP 116/58 L 11/03/18 12:18 Pulse Ox 100 11/03/18 12:18 - Labs Result Diagrams: 11/03/18 14:00 11/03/18 14:00 Labs: Laboratory Results - last 24 hr 11/03/18 11/03/18 11/03/18 14:00 14:00 15:32 WBC 5.9 RBC 3.31 L Hgb 9.8 L Hct 31.5 L MCV 95.2 MCH 29.6 MCHC 31.1 RDW 14.3 Plt Count 321 MPV 8.4 Neut % (Auto) 65.1 Lymph % (Auto) 19.6 L [place] % (Auto) 11.6 H Eos % (Auto) 3.4 Baso % (Auto) 0.3 Lymph # (Auto) 1.2 [place] # (Auto) 0.7 H Eos # (Auto) 0.2 Baso # (Auto) 0.02 Absolute Neuts (auto) 3.82 Sodium 138 Potassium 4.9 Chloride 105 Carbon Dioxide 21 Anion Gap 17 BUN 61 H Creatinine 4.7 H Est GFR ( Amer) 11 Est GFR (Non-Af Amer) 9 Random Glucose 120 H Calcium 8.9 Total Bilirubin 0.4 AST 37 H D ALT 22 Alkaline Phosphatase 80 Total Protein 8.1 Albumin 3.5 Globulin 4.5 Albumin/Globulin Ratio 0.8 L Urine Color Yellow Urine Appearance Cloudy Urine pH 6.5 Ur Specific [place] 1.020 Urine Protein 100 H Urine Glucose (UA) Negative Urine Ketones Negative Urine Blood Large H Urine Nitrate Negative Urine Bilirubin Negative Urine Urobilinogen 0.2 Ur Leukocyte Esterase Large H Urine RBC 2 - 5 H Urine WBC Tntc H Ur Epithelial Cells 1 - 3 Urine Bacteria Few Assessment & Plan - Assessment and Plan (Free Text) Assessment: 63 yo female well known to me presenting for fevers up to 104 F. History of frequent UTI and metastatic uterine cancer. Possible dehydration as part of fever cause? Creatinine has been better in the past. As high as 3.5 to 3.8 for this hospitalization. Mild leukocytosis. Urine cultures with gram negative nick growth. Prior history of ESBL+ Pseudomonas and E.coli. Start with Meropenem IV for now. R/O sepsis. R/O UTI given patient's history. One dose of Vancomycin given. May need a dose of aminoglycoside. Will give one dose of Gentamicin. Monitor creatinine. Supportive care. No complaints other than fevers at this time. Patient otherwise comfortable. Limited options given the patient's renal function. Continue meropenem. Creatinine improving to 2.7. Fevers downtrending. Afebrile today so far. On 11/01/2018, the patient had milky white urine and new episodes of fevers. Urine cultures retaken. New cultures retaken are showing Enterococcus sensitive to Vancomycin. Will continue with Meropenem and give doses of Vancomycin. Dr. Weinberg planning for a Castellanos. Stent exchange at his discretion once Vancomycin started (one dose given today will see level for clearance of vancomycin and redose tomorrow). Thank you for allowing me to participate in the care of the patient, we will f duy with you.
[2018-11-03] MEDS ORDERED: Sodium Chloride 0.9% 250 ML IV STA (19:34)
[2018-11-04 07:42] LABS: CALCIUM 8.6 mg/dL (8.4-10.5)
[2018-11-04] MEDS: NIFEdipine 60 mg ER Tab PO SCH (10:06)
[2018-11-04] MEDS: Sodium Chloride 0.45% 1,000 ML IV SCH ×2 (10:09→17:49)
--- NOTE | 2018-11-04 14:26 | CP.PCM.PN ---
Subjective - Date & Time of Evaluation Date of Evaluation: 11/04/18 Time of Evaluation: 13:00 - Subjective Subjective: Infectious Disease Follow Up: November 04, 2018 63 yo female with known history of metastatic uterine carcinoma. The patient was brought into [facility] for fevers of 102 F at home. Fevers up to 105 F in the past 24 hours. Came to ER on 10/20/2018 and sent home when UA and influenza testing was found to be negative. Mild leukocytosis now of 11.1. Afebrile today. Creatinine remains high at 2.8 but improving. ESBL+ Klebsiella in urine cultures. On Meropenem for treatment that required a few days to break the patient's fever. She was placed in the TRCU to continue Meropenem. On 11/01/2018, patient spiked fever again and had urine cultures repeated. Urine appeared milky white on 11/01/2018. Enterococcus sensitive to Vancomycin noted in the urine. Transferred back to hospital for possible castellanos placement, antibiotic treatment for Klebsiella and Enterococcus, stent replacement prior to discharge. Creatinine has increased to 4.7 and slightly improved to 4.1 today. Renal ultrasound is showing bilateral hydronephrosis with right worse than left. Objective - Vital Signs/Intake and Output Vital Signs (last 24 hours): Temp Pulse Resp BP Pulse Ox 98.2 F 64 18 135/65 97 11/03/18 22:00 11/04/18 10:08 11/04/18 08:00 11/04/18 10:08 11/03/18 22:00 Intake and Output: 11/04/18 11/04/18 06:59 18:59 Intake Total 540 Output Total 825 Balance -285 - Medications Medications: Current Medications Acetaminophen (Tylenol 325mg Tab) 650 mg PO Q4H PRN PRN Reason: Pain, moderate (4-7) Last Admin: 11/04/18 11:21 Dose: 650 mg Acetaminophen (Tylenol 325mg Tab) 650 mg PO Q6H PRN PRN Reason: Fever >100.4 F Atorvastatin Calcium (Lipitor) 10 mg PO HS [facility] Last Admin: 11/03/18 22:12 Dose: 10 mg Clonidine HCl (Catapres) 0.2 mg PO Q12 [facility] Last Admin: 11/04/18 10:07 Dose: 0.2 mg Doxazosin Mesylate (Cardura) 4 mg PO [facility] Last Admin: 11/03/18 22:12 Dose: 4 mg Ferrous Gluconate (Fergon) 324 mg PO DAILY [facility] Last Admin: 11/04/18 10:07 Dose: 324 mg Sodium Chloride (Sodium Chloride 0.45%) 1,000 mls @ 100 mls/hr IV .Q10H [facility] Last Admin: 11/04/18 10:09 Dose: 100 mls/hr Letrozole (Femara) 2.5 mg PO DAILY [facility] Last Admin: 11/04/18 10:05 Dose: 2.5 mg Metoprolol Tartrate (Lopressor) 50 mg PO BID [facility] Last Admin: 11/04/18 10:08 Dose: 50 mg Nifedipine (Procardia Xl) 120 mg PO DAILY [facility] Last Admin: 11/04/18 10:06 Dose: 120 mg Oxybutynin Chloride (Ditropan Tab) 5 mg PO BID [facility] Last Admin: 11/04/18 10:07 Dose: 5 mg - Labs Labs: 11/03/18 14:00 11/04/18 06:30 - Constitutional Appears: Non-toxic, No Acute Distress, Chronically Ill - Head Exam Head Exam: ATRAUMATIC, NORMOCEPHALIC - Eye Exam Eye Exam: EOMI, PERRL Pupil Exam: NORMAL ACCOMODATION, PERRL - ENT Exam ENT Exam: Mucous Membranes Moist, Normal External Ear Exam, TM's Normal Bilaterally - Neck Exam Neck Exam: Full ROM, Normal Inspection - Respiratory Exam Respiratory Exam: Clear to Ausculation Bilateral, NORMAL BREATHING PATTERN. absent: Rales, Rhonchi, Wheezes - Cardiovascular Exam Cardiovascular Exam: REGULAR RHYTHM, RRR, +S1, +S2 - GI/Abdominal Exam GI & Abdominal Exam: Soft, Normal Bowel Sounds. absent: Distended, Tenderness - Extremities Exam Extremities Exam: Full ROM, Normal Inspection - Neurological Exam Neurological Exam: Alert, Awake, CN II-XII Intact, Oriented x3 - Psychiatric Exam Psychiatric exam: Normal Affect, Normal Mood - Skin Skin Exam: Intact, Normal Color Assessment and Plan - Assessment and Plan (Free Text) Assessment: 63 yo female well known to me presenting for fevers up to 104 F. History of frequent UTI and metastatic uterine cancer. Possible dehydration as part of fever cause? Creatinine has been better in the past. As high as 3.5 to 3.8 for this hospitalization. Mild leukocytosis. Urine cultures with gram negative nick growth. Prior history of ESBL+ Pseudomonas and E.coli. Start with Meropenem IV for now. R/O sepsis. R/O UTI given patient's history. One dose of Vancomycin given. May need a dose of aminoglycoside. Will give one dose of Gentamicin. Monitor creatinine. Supportive care. No complaints other than fevers at this time. Patient otherwise comfortable. Limited options given the patient's renal function. Continue meropenem. Creatinine improving to 2.7. Fevers downtrending. Afebrile today so far. On 11/01/2018, the patient had milky white urine and new episodes of fevers. Urine cultures retaken. New cultures retaken are showing Enterococcus sensitive to Vancomycin. Will continue with Meropenem and give doses of Vancomycin. Dr. Weinberg planning for a Castellanos. Stent exchange at his discretion once Vancomycin started (one dose given yesterday will see level for clearance of vancomycin and redose tomorrow especially with the creatinine values increasing). If the creatinine and vancom ycin levels remain high, will have to consider use of Zyvox. Thank you for allowing me to participate in the care of the patient, we will follow with you.
[2018-11-04] MEDS: Nystatin 100,000 Units/gm Topical Pow(15 gm) TOP SCH (17:53)
[2018-11-04] MEDS ORDERED: Ammonium Lactate 12% Cream (140 g) TOP PRN (21:14)
[2018-11-05] MEDS: Sodium Chloride 0.45% 1,000 ML IV SCH ×2 (04:00→17:38)
[2018-11-05 07:39] LABS: HEMOGLOBIN 9.1 g/dL (12.0-16.0); MEAN CELL VOLUME 93.9 fl (80.0-105.0); MEAN CORPUSCULAR HEMOGLOBIN 29.2 pg (25.0-35.0); MEAN CORPUSCULAR HGB CONC 31.1 g/dl (31.0-37.0); MEAN PLATELET VOLUME 8.6 fl (7.0-11.0); RBC 3.12 10^6/uL (3.5-6.1); WHITE BLOOD COUNT 4.9 10^3/uL (4.5-11.0)
[2018-11-05 07:55] LABS: CALCIUM 8.7 mg/dL (8.4-10.5)
[2018-11-05] MEDS: NIFEdipine 60 mg ER Tab PO SCH (10:58)
[2018-11-05] MEDS: Nystatin 100,000 Units/gm Topical Pow(15 gm) TOP SCH ×2 (10:59→17:44)
[2018-11-05 13:37] LABS: CALCIUM 8.5 mg/dL (8.4-10.5)
--- NOTE | 2018-11-05 15:57 | PN ---
DATE: 11/05/2018 SUBJECTIVE: This 63-year-old female was examined at her bedside and her case was discussed in detail with herself and nurse, Keily Rahman, registered nurse. The patient was out of bed to chair states she is feeling better with her indwelling St catheter, draining a clear urine. She denied any fever, chills, chest pain or shortness of breath and had a low grade fever of 99.3 earlier this morning. PHYSICAL EXAMINATION VITAL SIGNS: Respirations were 20, pulse 69, blood pressure 150/70 with a pulse ox of 97% room air. Physical exam was unchanged. LABORATORY DATA: White count 4900, hemoglobin 9.1, hematocrit 29.3 and platelets 294,000. Sodium 137, potassium 4.7, chloride 108, bicarb 18, BUN 58, creatinine 4.1 and random blood sugar 137 with a calcium of 8.5. Random vancomycin level was 7.3. Microbiology shows blood cultures with no growth at 24 hours and urine culture showing yeast. Renal ultrasound was reviewed. It shows moderate bilateral hydronephrosis, larger on the right with ureteral stents seen bilaterally. IMPRESSION: This is a 63-year-old female with previous urinary tract infection positive for Klebsiella now with recent urine culture showing Enterococcus faecalis for which the patient was given IV vancomycin x1 dose in the setting of [id number] renal failure and comorbidities of metastatic stage IV uterine cancer, chronic renal failure stage IV, bilateral hydronephrosis secondary to obstructive neuropathy with bilateral indwelling ureteral stents, questionable bladder mass versus clot on recent bladder ultrasound with questionable urinary retention and comorbidities of anemia of chronic disease, iron-deficiency anemia, hyperlipidemia, chronic hypertension, degenerative arthritis. PLAN: As discussed with the patient and nursing will be to continue p.r.n. Tylenol, 0.45 saline at 100 mL/hour, Procardia, Lopressor, Lipitor, Lac-Hydrin skin cream, Fergon, Femara, Ditropan, clonidine and Cardura. She will have additional antibiotic dosing by Dr. Nilesh Lloyd from Infectious Disease and is ordered to have a basic metabolic panel daily. She continues on a renal heart-healthy diet, remains on isolation precaution, will have a St maintained under the direction of Dr. Yadiel Weinberg from Urology and is ordered to have physical therapy for reconditioning and gait training. Once cleared by Dr. Nilesh Lloyd, she will have ureteral stents replaced and we will continue to monitor the progress of her azotemia. Greater than 35 minutes was spent in the care management, review of labs, orders, x-rays and discussion of this patient with herself at the bedside and nurse Quarters. All questions were answered Luisa Pa MD
--- NOTE | 2018-11-05 17:41 | CP.PCM.PN ---
Subjective - Date & Time of Evaluation Date of Evaluation: 11/05/18 Time of Evaluation: 16:00 - Subjective Subjective: Infectious Disease Follow Up: November 05, 2018 63 yo female with known history of metastatic uterine carcinoma. The [place] [facility] [place] 102 F at [place]. Fevers up to 105 F in the past 24 hours. Came to ER on 10/20/2018 and sent home when UA and influenza testing was found to be negative. Mild leukocytosis now of 11.1. Afebrile today. Creatinine remains high at 2.8 but improving. ESBL+ Klebsiella in urine cultures. On Meropenem for treatment that required a few days to break the patient's fever. She was placed in the TRCU to continue Meropenem. On 11/01/2018, patient spiked fever again and had urine cultures repeated. Urine appeared milky white on 11/01/2018. Enterococcus sensitive to Vancomycin noted in the urine. Transferred back to hospital for possible castellanos placement, antibiotic treatment for Klebsiella and Enterococcus, stent replacement prior to discharge. Creatinine at 4.1 today. Renal ultrasound is showing bilateral hydronephrosis with right worse than left. Objective - Vital Signs/Intake and Output Vital Signs (last 24 hours): Temp Pulse Resp BP Pulse Ox 98.6 F 55 L 20 116/75 96 11/05/18 15:53 11/05/18 15:53 11/05/18 15:53 11/05/18 15:53 11/05/18 15:53 Intake and Output: 11/05/18 11/05/18 06:59 18:59 Intake Total 1860 Output Total 1575 Balance 285 - Medications Medications: Current Medications Acetaminophen (Tylenol 325mg Tab) 650 mg PO Q4H PRN PRN Reason: Pain, moderate (4-7) Last Admin: 11/04/18 17:52 Dose: 650 mg Acetaminophen (Tylenol 325mg Tab) 650 mg PO Q6H PRN PRN Reason: Fever >100.4 F Atorvastatin Calcium (Lipitor) 10 mg PO HS [facility] Last Admin: 11/04/18 22:12 Dose: 10 mg Clonidine HCl (Catapres) 0.2 mg PO Q12 [facility] Last Admin: 11/05/18 10:58 Dose: 0.2 mg Doxazosin Mesylate (Cardura) 4 mg PO HS [facility] Last Admin: 11/04/18 22:53 Dose: 4 mg Ferrous Gluconate (Fergon) 324 mg PO DAILY [facility] Last Admin: 11/05/18 10:59 Dose: 324 mg Sodium Chloride (Sodium Chloride 0.45%) 1,000 mls @ 100 mls/hr IV .Q10H [facility] Last Admin: 11/05/18 04:00 Dose: 100 mls/hr Lactic Acid (Lac-Hydrin 12% Cream (140 G)) 0 ea TOP DAILY PRN PRN Reason: Rash Letrozole (Femara) 2.5 mg PO DAILY [facility] Last Admin: 11/05/18 12:02 Dose: 2.5 mg Metoprolol Tartrate (Lopressor) 50 mg PO BID [facility] Last Admin: 11/05/18 10:54 Dose: 50 mg Nifedipine (Procardia Xl) 120 mg PO DAILY [facility] Last Admin: 11/05/18 10:58 Dose: 120 mg Nystatin (Nystop Topical Powder) 0 gm TOP BID [facility] Last Admin: 11/05/18 10:59 Dose: 1 pad Oxybutynin Chloride (Ditropan Tab) 5 mg PO BID [facility] Last Admin: 11/05/18 10:58 Dose: 5 mg - Labs Labs: 11/05/18 07:00 11/05/18 13:15 - Constitutional Appears: Non-toxic, No Acute Distress, Chronically Ill - Head Exam Head Exam: ATRAUMATIC, NORMOCEPHALIC - Eye Exam Eye Exam: EOMI, PERRL Pupil Exam: NORMAL ACCOMODATION, PERRL - ENT Exam ENT Exam: Mucous Membranes Moist, Normal External Ear Exam, TM's Normal Bilaterally - Neck Exam Neck Exam: Full ROM, Normal Inspection - Respiratory Exam Respiratory Exam: Clear to Ausculation Bilateral, NORMAL BREATHING PATTERN. absent: Decreased Breath Sounds, Rhonchi, Wheezes - Cardiovascular Exam Cardiovascular Exam: REGULAR RHYTHM, RRR, +S1, +S2 - GI/Abdominal Exam GI & Abdominal Exam: Soft, Normal Bowel Sounds. absent: Distended, Tenderness - Extremities Exam Extremities Exam: Full ROM, Normal Inspection - Neurological Exam Neurological Exam: Alert, Awake, CN II-XII Intact, Oriented x3 - Psychiatric Exam Psychiatric exam: Normal Affect, Normal Mood - Skin Skin Exam: Intact, Normal Color Assessment and Plan - Assessment and Plan (Free Text) Assessment: 63 yo female well known to me presenting for fevers up to 104 F. Hi story of frequent UTI and metastatic uterine cancer. Possible dehydration as part of fever cause? Creatinine has been better in the past. As high as 3.5 to 3.8 for this hospitalization. Mild leukocytosis. Urine cultures with gram negative nick growth. Prior history of ESBL+ Pseudomonas and E.coli. Start with Meropenem IV for now. R/O sepsis. R/O UTI given patient's history. One dose of Vancomycin given. May need a dose of aminoglycoside. Will give one dose of Gentamicin. Monitor creatinine. Supportive care. No complaints other than fevers at this time. Patient otherwise comfortable. Limited options given the patient's renal function. Continue meropenem. Creatinine at 4.1. Fevers downtrending. Afebrile today so far. On 11/01/2018, the patient had milky white urine and new episodes of fevers. Urine cultures retaken. New cultures retaken are showing Enterococcus sensitive to Vancomycin. Will continue with Meropenem and give doses of Vancomycin. Dr. Weinberg planning for a Castellanos. Stent exchange at his discretion once Vancomycin started (one dose given yesterday will see level for clearance of vancomycin and redose tomorrow especially with the creatinine values increasing). If the creatinine and vancomycin levels remain high, will have to consider use of Zyvox. Giving Vancomycin 1 gm daily IV. Thank you for allowing me to participate in the care of the patient, we will follow with you.
--- NOTE | 2018-11-05 20:16 | HP ---
DATE OF EXAM: 11/04/2018 HISTORY OF PRESENT ILLNESS: This 63-year-old female was examined at her bedside on the medical [facility] of the [facility] on the morning of 11/04/2018, present for this interview was her , Joe and case was reviewed in detail with nurse Devan Rivera, registered nurse. This is a 63-year-old female admitted to [facility] with now identified Enterococcus fecalis urinary tract infection. PAST MEDICAL HISTORY: Significant for urinary tract infection, urosepsis, chronic renal failure stage IV to V and comorbidities of metastatic uterine cancer stage IV, obesity, hypertension, urinary incontinence, anemia of chronic disease, iron-deficiency anemia, hyperlipidemia, and degenerative arthritis. The patient is admitted now with a enterococcus urinary tract infection, which is precluding the desired procedure of bilateral ureteral stent replacement with new finding of [id number] renal failure in this 63-year-old female. ALLERGIES: THE PATIENT HAS NO KNOWN ALLERGIES TO MEDICATION. CHRONIC MEDICATIONS: Include Cardura, clonidine, Ditropan, Femara, Fergon, Lac-Hydrin skin cream, Lipitor, Lopressor, Procardia XL, and p.r.n. Tylenol. SOCIAL HISTORY: The patient is a nondrinker, nonsmoker, and non IV drug misuser. She is a retired homemaker. FAMILY HISTORY: Noncontributory. REVIEW OF SYSTEMS: CONSTITUTIONAL REVIEW: She denied fever or chills. HEAD: No headache or seizure. EYES: No change in visual acuity. EARS: No hearing loss. THROAT: No swallowing difficulty. NECK: No stiffness. CARDIAC REVIEW: Chronic hypertension. No chest pain. No palpitation. PULMONARY: No cough. No hemoptysis. GASTROINTESTINAL: No hematemesis. No melena. GENITOURINARY: As per HPI. VASCULAR: No claudication. PSYCHOLOGICAL: No anxiety. No depression. NEUROLOGICAL: No stroke. ENDOCRINOLOGICAL: She has hyperlipidemia. PHYSICAL EXAMINATION: GENERAL: At the time of my interview, the patient was lying in bed, alert, oriented, and in no acute distress. VITAL SIGNS: Temperature was 98.7, respirations 18, pulse 64, and blood pressure 135/65. HEENT: Head: Normocephalic and atraumatic. Eyes: No icterus. Ears: Clear. Throat: Noninjected. NECK: Supple. HEART: Regular S1 and S2. LUNGS: Clear. ABDOMEN: Obese. No rebound. No guarding. No tenderness. No CVA tenderness. EXTREMITIES: No edema. SKIN: Without rash. NEUROLOGICAL: Intact. PSYCHOLOGICAL: Alert. VASCULAR: Legs warm to touch. LABORATORY DATA: White count 5900, hemoglobin 9.8, hematocrit 31.5, and platelets 321,000. Sodium 138, K 4.9, chloride 111, bicarb 18, BUN 62, creatinine 4.1, previously BUN 61, creatinine 4.7, random blood sugar 112, and bilirubin 0.4. AST 37, ALT 22, and alk phos 80. Urinalysis showed few bacteria. Urine culture is showing Enterococcus faecalis sensitive to vancomycin. IMPRESSION AND PLAN: A 63-year-old female with dtjzy-[id number] renal failure stage IV, Enterococcus fecalis urinary tract infection with metastatic uterine cancer stage IV and chronic bilateral hydronephrosis, requiring bilateral ureteral stents and now with probable urinary retention contributing to acute on chronic renal failure with comorbidities of obesity, hypertension, history of urinary incontinence, iron-deficiency anemia, anemia of chronic disease, hyperlipidemia and degenerative arthritis. As discussed with the patient, nursing and , we will treat this patient with dosing of vancomycin as directed by Dr. Nilesh Lloyd. She did receive 1 g of vancomycin and will be scheduled for random vancomycin level. She will continue on renal heart-healthy diet, Cardura, clonidine, Ditropan, Femara, Fergon, Lac-Hydrin skin cream, Lipitor, Lopressor, Procardia, and Tylenol p.r.n. She is ordered to receive 0.45 saline at 100 mL/hour. She will have serial labs and electrolytes. Consultations with Dr. Yadiel Weinberg and Dr. Nilesh Lloyd are pending. Renal ultrasound was reviewed, it shows bilateral hydronephrosis, larger on the right with ureteral stents seen bilaterally. This was reviewed with Dr. Yadiel Weinberg. He states his plans are to replace ureteral stents when cleared by Dr. Nilesh Lloyd from Infectious Disease. All of the above was reviewed with herself and at bedside. Greater than 75 minutes was spent in the care management, review of labs, orders, x-rays and discussion of this patient with herself, , family, nursing and co-consultants from Infectious Disease and , all questions were answered. Luisa Pa MD [facility] # [id number] KEO
[2018-11-05] MEDS: Vancomycin 1gm in NS 250ml 1 GM/250 ML BAG IVPB SCH (20:32)
[2018-11-06] MEDS: Sodium Chloride 0.45% 1,000 ML IV SCH ×2 (02:30→20:00)
[2018-11-06] MEDS: NIFEdipine 60 mg ER Tab PO SCH (10:09)
[2018-11-06] MEDS: Vancomycin 1gm in NS 250ml 1 GM/250 ML BAG IVPB SCH (10:10)
[2018-11-06] MEDS: Nystatin 100,000 Units/gm Topical Pow(15 gm) TOP SCH ×2 (10:14→17:00)
[2018-11-06 13:14] LABS: CALCIUM 8.4 mg/dL (8.4-10.5)
--- NOTE | 2018-11-06 15:41 | PN ---
DATE: 11/06/2018 SUBJECTIVE: This 63-year-old female was examined at her bedside on the morning of 11/06/2018. Present for this interview was her Joe and this case was reviewed in detail with her nurse Leia, registered nurse. The patient is currently n.p.o. in anticipation of a cystoscopy later this afternoon for further evaluation of recently noted bladder mass versus clot and the changing of bilateral ureteral stents. The patient is status post a successful tap water enema yesterday that resulted in a good formed bowel movement. PHYSICAL EXAMINATION: VITAL SIGNS: At present, her temperature is 98.9, respirations 20, pulse 65 and blood pressure 117/63, with a pulse ox of 94% on room air. HEENT: Head: Normocephalic, atraumatic. Eyes: No icterus. Ears: Clear. Throat: Noninjected. NECK: Supple. HEART: S1, S2. LUNGS: Clear. ABDOMEN: Soft. EXTREMITIES: No edema. SKIN: Without rash. NEUROLOGICAL: Intact. PSYCHOLOGICAL: Alert. VASCULAR: Legs warm to touch. LABORATORY DATA: White count 4900, hemoglobin 9.1, hematocrit 29.3, platelets 294,000. Sodium 137, K 4.7, chloride 108, bicarb 18, BUN 58, creatinine 4.1, random blood sugar 137 with a calcium level of 8.4. Her random vancomycin level was 7.3. IMPRESSION: A 63-year-old female with [id number] renal failure secondary to chronic hydronephrosis secondary to obstructive uropathy secondary to metastatic stage IV uterine cancer that is being managed with oral Femara and hydronephrosis being managed with bilateral ureteral stents that are changed on a routine basis by Dr. Yadiel Weinberg from Urology, also with recurrent urinary tract infection, recent urosepsis, morbid obesity, chronic hypertension, history of urinary incontinence, now with hyperglycemia, dry skin syndrome, hyperlipidemia, chronic hypertension and anemia of chronic disease as well as iron-deficiency anemia. PLAN: The plan is to continue this patient on Cardura, clonidine, Ditropan, Femara, Fergon, insulin coverage, Lac-Hydrin, Lipitor, Lopressor, Procardia, gentle IV fluids, Tylenol and dosing of vancomycin while monitoring levels and serial creatinine. The patient remains n.p.o. in anticipation of cystoscopy. She is ordered to have a hemoglobin A1c and a basic metabolic panel for the a.m. Microbiology reports were reviewed and there is no evidence of any growth at 48 hours and urine is showing yeast which may be a contaminant. She also is remaining on contact isolation at present, has a St that will be determined necessary or not by Dr. Weinberg post cystoscopy and the patient is scheduled for physical and occupational therapy for reconditioning and gait training. Greater than 35 minutes was spent in the care management, review of labs, orders and x-rays and discussion of this patient with herself, her and nursing. All questions were answered. Luisa Pa MD
[2018-11-06] MEDS ORDERED: Lactated Ringer's 1,000 ML IV SCH (15:45)
[2018-11-06] MEDS ORDERED: cefTRIAXone (Rocephin) 1 gm Inj ONE (17:00)
[2018-11-06] MEDS ORDERED: Iohexol 240 (50 ml) ONE (17:00)
--- NOTE | 2018-11-06 17:14 | CP.PCM.PN ---
Subjective - Date & Time of Evaluation Date of Evaluation: 11/06/18 Time of Evaluation: 16:00 - Subjective Subjective: Infectious Disease Follow Up: November 06, 2018 63 yo female with known history of metastatic uterine carcinoma. The patient was brought into [facility] [place]vers of 102 F at home. Fevers up to 105 F in the past 24 hours. Came to ER on 10/20/2018 and sent home when UA and influenza testing was found to be negative. Mild leukocytosis now of 11.1. Afebrile today. Creatinine remains high at 2.8 but improving. ESBL+ Klebsiella in urine cultures. On Meropenem for treatment that required a few days to break the patient's fever. She was placed in the TRCU to continue Meropenem. On 11/01/2018, patient spiked fever again and had urine cultures repeated. Urine appeared milky white on 11/01/2018. Enterococcus sensitive to Vancomycin noted in the urine. Transferred back to hospital for possible castellanos placement, antibiotic treatment for Klebsiella and Enterococcus, stent replacement prior to discharge. Creatinine at 3.9 today. Renal ultrasound is showing bilateral hydronephrosis with right worse than left. For cystoscopy and stent exchange today at 4 PM. Objective - Vital Signs/Intake and Output Vital Signs (last 24 hours): Temp Pulse Resp BP Pulse Ox 98 F 53 L 20 142/62 97 11/06/18 14:00 11/06/18 14:00 11/06/18 14:00 11/06/18 14:00 11/06/18 14:00 Intake and Output: 11/06/18 11/06/18 06:59 18:59 Intake Total 620 Output Total 1000 1250 Balance -380 -1250 - Medications Medications: Current Medications Acetaminophen (Tylenol 325mg Tab) 650 mg PO Q4H PRN PRN Reason: Pain, moderate (4-7) Last Admin: 11/04/18 17:52 Dose: 650 mg Acetaminophen (Tylenol 325mg Tab) 650 mg PO Q6H PRN PRN Reason: Fever >100.4 F Atorvastatin Calcium (Lipitor) 10 mg PO HS [facility] Last Admin: 11/05/18 21:31 Dose: 10 mg Clonidine HCl (Catapres) 0.2 mg PO Q12 [facility] Last Admin: 11/06/18 10:09 Dose: 0.2 mg Doxazosin Mesylate (Cardura) 4 mg PO [facility] Last Admin: 11/05/18 21:09 Dose: 4 mg Ferrous Gluconate (Fergon) 324 mg PO DAILY [facility] Last Admin: 11/06/18 10:09 Dose: 324 mg Sodium Chloride (Sodium Chloride 0.45%) 1,000 mls @ 100 mls/hr IV .Q10H [facility] Last Admin: 11/06/18 02:30 Dose: 100 mls/hr Vancomycin HCl (Vancomycin 1gm) 1 gm in 250 mls @ 167 mls/hr IVPB DAILY [facility]; Protocol Last Admin: 11/06/18 10:10 Dose: 167 mls/hr Lactated Ringer's (Lactated Ringer's) 1,000 mls @ 75 mls/hr IV .[id number] [facility] Stop: 11/06/18 17:46 Insulin Human Regular (Humulin R Low) 0 units SC ACHS [facility]; Protocol Lactic Acid (Lac-Hydrin 12% Cream (140 G)) 0 ea TOP DAILY PRN PRN Reason: Rash Letrozole (Femara) 2.5 mg PO DAILY [facility] Last Admin: 11/06/18 10:35 Dose: 2.5 mg Metoprolol Tartrate (Lopressor) 50 mg PO BID [facility] Last Admin: 11/06/18 10:10 Dose: 50 mg Nifedipine (Procardia Xl) 120 mg PO DAILY [facility] Last Admin: 11/06/18 10:09 Dose: 120 mg Nystatin (Nystop Topical Powder) 0 gm TOP BID [facility] Last Admin: 11/06/18 10:14 Dose: 1 applic Ondansetron HCl (Zofran Inj) 4 mg IVP ONCE PRN PRN Reason: Nausea/Vomiting Oxybutynin Chloride (Ditropan Tab) 5 mg PO BID [facility] Last Admin: 11/06/18 10:09 Dose: 5 mg Polyethylene Glycol (Miralax) 17 gm PO DAILY [facility] - Labs Labs: 11/05/18 07:00 11/06/18 12:30 - Constitutional Appears: Non-toxic, No Acute Distress, Chronically Ill - Head Exam Head Exam: ATRAUMATIC, NORMOCEPHALIC - Eye Exam Eye Exam: EOMI, PERRL Pupil Exam: NORMAL ACCOMODATION, PERRL - ENT Exam ENT Exam: Mucous Membranes Moist, Normal External Ear Exam, TM's Normal Bilaterally - Neck Exam Neck Exam: Full ROM, Normal Inspection - Respiratory Exam Respiratory Exam: Clear to Ausculation Bilateral, NORMAL BREATHING PATTERN. absent: Rales, Rhonchi, Wheezes - Cardiovascular Exam Cardiovascular Exam: REGULAR RHYTHM, RRR, +S1, +S2 - GI/Abdominal Exam GI & Abdominal Exam: Soft, Normal Bowel Sounds. absent: Distended, Tenderness - Extremities Exam Extremities Exam: Full ROM, Normal Inspection - Neurological Exam Neurological Exam: Alert, Awake, CN II-XII Intact, Oriented x3 - Psychiatric Exam Psychiatric exam: Normal Affect, Normal Mood - Skin Skin Exam: Intact, Normal Color Assessment and Plan - Assessment and Plan (Free Text) Assessment: 63 yo female well known to me presenting for fevers up to 104 F. History of frequent UTI and metastatic uterine cancer. Possible dehydration as part of fever cause? Creatinine has been better in the past. As high as 3.5 to 3.8 for this hospitalization. Mild leukocytosis. Urine cultures with gram negative nick growth. Prior history of ESBL+ Pseudomonas and E.coli. Start with Meropenem IV for now. R/O sepsis. R/O UTI given patient's history. One dose of Vancomycin given. May need a dose of aminoglycoside. Will give one dose of Gentamicin. Monitor creatinine. Supportive care. No complaints other than fevers at this time. Patient otherwise comfortable. Limited options given the patient's renal function. Continue meropenem. Creatinine at 4.1. Fevers downtrending. Afebrile today so far. On 11/01/2018, the patient had milky white urine and new episodes of fevers. Urine cultures retaken. New cultures retaken are showing Enterococcus sensitive to Vancomycin. Will continue with Meropenem and give doses of Vancomycin. Dr. Weinberg planning for a Castellanos. Stent exchange at his discretion once Vancomycin started (one dose given yesterday will see level for clearance of vancomycin and redose tomorrow especially with the creatinine values increasing). If the creatinine and vancomycin levels remain high, will have to consider use of Zyvox. Giving Vancomycin 1 gm daily IV. For cystoscopy and stent exchange today. Noted yeast in last urine culture. Thank you for allowing me to participate in the care of the patient, we will follow with you.
[2018-11-06] MEDS ORDERED: Propofol 10 mg/ml Inj (20 ML) ONE (19:53)
[2018-11-06] MEDS ORDERED: Midazolam 2 MG/2 ML VIAL ONE (19:54)
[2018-11-06] MEDS: Insulin Reg-LOW-Coverage SC SCH (20:08)
--- NOTE | 2018-11-06 21:03 | PCM.URO ---
Urology Progress Note - Objective Lab Studies: Reviewed (full note dictated castellanos to sd pt with two new stents will reevaluate on 11/08) Lab Results Last 24 Hours: Laboratory Results - last 24 hr 11/05/18 11/06/18 11/06/18 20:58 12:30 12:30 Sodium 135 Potassium 4.6 Chloride 110 H Carbon Dioxide 18 L Anion Gap 12 BUN 52 H Creatinine 3.9 H Est GFR ( Amer) 14 Est GFR (Non-Af Amer) 12 POC Glucose (mg/dL) 211 H Random Glucose 109 Hemoglobin A1c 6.1 Calcium 8.4 Intake & Output: Intake & Output 11/06/18 11/06/18 11/07/18 06:59 18:59 06:59 Intake Total 620 0 Output Total 1000 1250 Balance -380 -1250 Intake: IV 0 Oral 620 Output: Urine 1000 1250 Urine, Voided 1000 1250 Other: # Bowel Movements 1 Vital Signs: Vital Signs - 24 hr 11/05/18 11/05/18 11/06/18 21:32 23:11 06:00 Temperature 98.6 F 98.9 F Pulse Rate 65 65 65 Respiratory 18 20 Rate Blood Pressure 153/67 H 153/67 H 117/63 O2 Sat by Pulse 96 94 L Oximetry 11/06/18 11/06/18 11/06/18 10:09 10:10 14:00 Temperature 98 F Pulse Rate 65 65 53 L Respiratory 20 Rate Blood Pressure 117/63 117/63 142/62 O2 Sat by Pulse 97 Oximetry 11/06/18 11/06/18 11/06/18 17:00 17:52 20:50 Temperature 98.2 F 98.4 F Pulse Rate 71 59 L 67 Respiratory 16 16 Rate Blood Pressure 138/68 132/56 L 114/60 O2 Sat by Pulse 99 98 Oximetry
--- NOTE | 2018-11-07 01:50 | CON ---
DATE: 11/06/2018 UROLOGY CONSULTATION REASON FOR CONSULTATION: Azotemia, renal failure, and hydronephrosis. HISTORY OF PRESENT ILLNESS: Very pleasant lady, she has advanced stage CORPORATE REPRESENTATIVE malignancy. From urology standpoint, she has bilateral stents and hydronephrosis and renal failure and voiding dysfunction and urinary retention and recurrent infections. See the previously dictated notes as many of them in the hospital. She was in the transitional care and we were planing to change her stents. We had to rearrange because of positive urine cultures, we were not able to change I had contact with Dr. Lloyd, the Infectious Disease doctor and also Dr. Pa. We are waiting for the patient to be cleared of her infection to prevent the possibility for sepsis from changing the stent. After discussing options though the patient is actually now brought over from transistional care to the emergency room for emergency admission. Urology has consulted for further recommendations. See the plan as listed below. PAST MEDICAL HISTORY AND SURGICAL HISTORY: All listed on the chart, no other changes. SOCIAL HISTORY: I had a chat actually speak with her daughter. No other changes were noted. is supportive at the bedside. Her family is with her. Otherwise, unremarkable no other social history of note. REVIEW OF SYSTEMS: Listed above. MEDICATIONS: See chart. ALLERGIES: SEE CHART. PHYSICAL EXAMINATION: GENERAL: Female in no apparent distress. VITAL SIGNS: Noted. ABDOMEN: St catheter is currently in place, draining well. I mention the bladder scan, the bladder ultrasound shows various residuals. Today, St catheter was inserted with 250 mL residual. The bladder ultrasound that was done yesterday shows less than 100 mL, so it has been variable. 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 DIAGNOSES: Voiding dysfunction/urinary retention, urinary incontinence, urgency ,frequency, stent discomfort, stent pain discomfort, hydronephrosis, azotemia, and renal failure. ASSESSMENT: In summary, we discussed the options. At this point, we are going to recommend stent as soon as she could be medically cleared from an Infectious Disease standpoint. Previously, the patient had stent. Last time I changed the stent, she became septic. I believe at that time she was in retention. So, we concerned very much here for causing further sepsis. I do want to mention that last time I changed the catheter, we also found to have a large residual. Difficult balance between keeping her with St versus just letting her be voiding dysfunction. We previously tried also using Flomax and using anticholinergic antimuscarinic nothing really help the patient. I think this is because it mostly a physical thing. I do want to mention also there is question about mass on CAT scan. I mentioned the possibility that mass could be fungus after the all the antibiotic, but it does not look like it is anything it just going to most likely be related to the stent and the stents are in place. PLAN: 1. Antibiotic as per Dr. Lloyd. 2. stent changes Dr. Lloyd and Dr. Pa give medical clearance and the family is okay and the patient is okay with it. Further plans will follow. We will follow along. Thank you for the Urology consult. Yadiel Weinberg MD
[2018-11-07] MEDS: Insulin Reg-LOW-Coverage SC SCH ×3 (04:56→09:53)
[2018-11-07] MEDS: Sodium Chloride 0.45% 1,000 ML IV SCH ×2 (06:19→17:30)
[2018-11-07 08:21] LABS: CALCIUM 8.4 mg/dL (8.4-10.5)
--- NOTE | 2018-11-07 08:21 | RAD ---
Date of service: 11/06/2018 PROCEDURE: Retrograde pyelogram HISTORY: R/O STONES INSERT STENTS COMPARISON: TECHNIQUE: 54 sec of fluoro time. Cumulative dose 23.03 mGy. 33 images submitted FINDINGS: The study shows placement of bilateral ureteral stents IMPRESSION: As above
--- NOTE | 2018-11-07 09:26 | OP ---
PROCEDURE DATE: 11/06/2018 See the consultation from 11/04/2018. PREOPERATIVE DIAGNOSES: Bilateral hydronephrosis, azotemia, renal failure, urinary retention, voiding dysfunction, recurrent urinary tract infection. POSTOPERATIVE DIAGNOSES: Bilateral hydronephrosis, azotemia, renal failure, urinary retention, voiding dysfunction, recurrent urinary tract infection. PROCEDURES: Exam under anesthesia, cystoscopy, removal of a right double J-stent, right retrograde pyelogram, insertion of right double J-stent, removal of left double J-stent, left retrograde pyelogram, insertion of left double J-stent, insertion of a St catheter via the urethra. COMPLICATIONS: There were no complications. FINDINGS: 1. The patient has a very hidden urethra. 2. The stents were in reasonably good location. 3. At the termination of the procedure, the patient has two new stents in place. 4. There is hydronephrosis. INDICATION: See the history and physical and consultation. A very pleasant lady with the above history. Her creatinine is now about 3.9. It is down from about 4.5, but it is still elevated. DESCRIPTION OF PROCEDURE: The patient was brought to the OR and placed on the table. Routine monitors were placed. Time-out was called to confirm the patient and positioning. Antibiotics were already on board. We introduced the cystoscope via urethra, removed the old St catheter under sterile technique. The urethra is very hidden and very difficult to find. When I identified the stent, we removed the old left double J-stent and left regrade pyelogram was performed. We put a wire up to the kidney, put an open-ended, put a new wire and put a new stent in place. We did the same thing on the right side. Overall, the patient tolerated that portion well. We inserted a St catheter via urethra. The patient tolerated this without complication. My plan is to leave the St catheter. Seeing now that she has new stents in, if the hydronephrosis resolves with BUN and creatinine, I would be . We will then make further recommendations. Regarding her St, for now it is definitely better to keep the St in, although it is a risk for infection. I think the hidden urethra makes me concern that she will land into more trouble but not. For further plans, we will have to discuss with Dr. Lloyd and Dr. Pa. I then had a discussion in the postop period, this is with the patient, we then had a discussion about options. Previously, the St catheter issue was that the bag would open spontaneously at home and cause more urinary leakage and trouble. We will need to make sure that we have adequate care, but for now I am going to recommend keeping the St catheter in and reassess in a couple of days in terms of BUN and creatinine. Yadiel Weinberg MD [facility] # [id number]
[2018-11-07] MEDS: Vancomycin 1gm in NS 250ml 1 GM/250 ML BAG IVPB SCH (09:37)
[2018-11-07] MEDS: POLYETHYLENE GLYCOL 3350 17 GM/Dose PACKET PO SCH (09:38)
[2018-11-07] MEDS: NIFEdipine 60 mg ER Tab PO SCH (09:38)
[2018-11-07] MEDS: Nystatin 100,000 Units/gm Topical Pow(15 gm) TOP SCH ×2 (10:56→17:31)
--- NOTE | 2018-11-07 12:37 | CP.PCM.PCO ---
Physician Communication Note - Physician Communication Note Physician Communication Note: D/W ID, c/w Vanco IV for now post stents change. Will re-eval in AM.
--- NOTE | 2018-11-07 16:37 | PN ---
DATE: 11/07/2018 SUBJECTIVE: This 63-year-old female was examined at her bedside in the presence of her , Joe and this case was reviewed in detail with her nurse, Ana M, registered nurse. The patient is status post cystoscopy under general anesthesia late yesterday afternoon under the direction of Dr. Yadiel Weinberg from Urology. At that time, she underwent bilateral ureteral stent replacement, was not found to have any kind of bladder mass and also had a St placed for urinary retention. The patient is lying in her bed today alert and oriented. Denying any fever and chills. PHYSICAL EXAMINATION: VITAL SIGNS: Had a temperature of 99, respirations 18, pulse 85 and blood pressure 151/75 and pulse ox 96% on room air. HEENT: Head normocephalic, atraumatic. Eyes: No icterus. Ears: Clear. Throat: Noninjected. NECK: Supple. HEART: S1, S2. LUNGS: Clear. ABDOMEN: Obese. EXTREMITIES: No edema. SKIN: Without rash. NEUROLOGIC: Intact. PSYCHOLOGIC: Alert. VASCULAR: Legs warm to touch. LABORATORY DATA: White count 4900, hemoglobin 9.1, hematocrit 29.3, platelets 294,000. Sodium 139, K 4.1, chloride 112, bicarb 18, BUN 53, creatinine 3.5, random blood sugar 123 with a calcium of 8.4. IMPRESSION: This is a 63-year-old female with newly noted Enterococcus faecalis urinary tract infection, previously Klebsiella pneumoniae with comorbidities of metastatic stage IV uterine cancer causing bilateral obstructive hydronephrosis that require chronic ureteral stents, in a patient with [id number] renal failure secondary to urinary retention and comorbidities of hypertension, urinary incontinence, anemia of chronic disease, iron-deficiency anemia, hyperlipidemia, degenerative arthritis. PLAN: The plan is to continue Cardura, clonidine, Ditropan, Femara, Fergon, Lac-Hydrin skin cream, Lipitor, Lopressor, MiraLax, Procardia XL, 0.45 saline at 100 mL/hour, IV vancomycin, and p.r.n. Zofran. The patient will be scheduled for repeat basic metabolic panel and CBC for the a.m. She will continue on MiraLax to prevent obstipation. She is ordered to have a renal diet, remains on contact precautions; and based on clinical progress, additional diagnostic workup and testing will be entertained. Greater than 30 minutes was spent in the care management, adjustment of orders and discussion of this patient with her and herself at bedside. All questions were answered. Luisa Pa MD
--- NOTE | 2018-11-07 18:19 | CP.PCM.PN ---
Subjective - Date & Time of Evaluation Date of Evaluation: 11/07/18 Time of Evaluation: 16:30 - Subjective Subjective: Infectious Disease Follow Up: November 07, 2018 63 yo female with known history of metastatic uterine carcinoma. The patient was brought into [facility] for fevers of 102 F at home. Fevers up to 105 F in the past 24 hours. Came to ER on 10/20/2018 and sent home when UA and influenza testing was found to be negative. Mild leukocytosis now of 11.1. Afebrile today. Creatinine remains high at 2.8 but improving. ESBL+ Klebsiella in urine cultures. On Meropenem for treatment that required a few days to break the patient's fever. She was placed in the TRCU to continue Meropenem. On 11/01/2018, patient spiked fever again and had urine cultures repeated. Urine appeared milky white on 11/01/2018. Enterococcus sensitive to Vancomycin noted in the urine. Transferred back to hospital for possible castellanos placement, antibiotic treatment for Klebsiella and Enterococcus, stent replacement prior to discharge. Creatinine at 3.5 today. Renal ultrasound is showing bilateral hydronephrosis with right worse than left. For cystoscopy and stent exchange yesterday. Creatinine slightly improved today. Objective - Vital Signs/Intake and Output Vital Signs (last 24 hours): Temp Pulse Resp BP Pulse Ox 98.7 F 61 18 122/75 99 11/07/18 14:00 11/07/18 14:00 11/07/18 14:00 11/07/18 14:00 11/07/18 14:00 Intake and Output: 11/07/18 11/07/18 06:59 18:59 Intake Total 500 380 Output Total 1200 900 Balance -700 -520 - Medications Medications: Current Medications Acetaminophen (Tylenol 325mg Tab) 650 mg PO Q4H PRN PRN Reason: Pain, moderate (4-7) Last Admin: 11/04/18 17:52 Dose: 650 mg Acetaminophen (Tylenol 325mg Tab) 650 mg PO Q6H PRN PRN Reason: Fever >100.4 F Last Admin: 11/07/18 05:42 Dose: 650 mg Atorvastatin Calcium (Lipitor) 10 mg PO HS JAMARI Last Admin: 11/06/18 22:09 Dose: 10 mg Clonidine HCl (Catapres) 0.2 mg PO Q12 JAMARI Last Admin: 11/07/18 09:38 Dose: 0.2 mg Doxazosin Mesylate (Cardura) 4 mg PO HS [facility] Last Admin: 11/06/18 22:09 Dose: 4 mg Ferrous Gluconate (Fergon) 324 mg PO DAILY [facility] Last Admin: 11/07/18 09:38 Dose: 324 mg Sodium Chloride (Sodium Chloride 0.45%) 1,000 mls @ 100 mls/hr IV .Q10H [facility] Last Admin: 11/07/18 17:30 Dose: 100 mls/hr Vancomycin HCl (Vancomycin 1gm) 1 gm in 250 mls @ 167 mls/hr IVPB DAILY [facility]; Protocol Last Admin: 11/07/18 09:37 Dose: 167 mls/hr Lactic Acid (Lac-Hydrin 12% Cream (140 G)) 0 ea TOP DAILY PRN PRN Reason: Rash Letrozole (Femara) 2.5 mg PO DAILY [facility] Last Admin: 11/07/18 10:56 Dose: 2.5 mg Metoprolol Tartrate (Lopressor) 50 mg PO BID [facility] Last Admin: 11/07/18 17:30 Dose: 50 mg Nifedipine (Procardia Xl) 120 mg PO DAILY [facility] Last Admin: 11/07/18 09:38 Dose: 120 mg Nystatin (Nystop Topical Powder) 0 gm TOP BID [facility] Last Admin: 11/07/18 17:31 Dose: 1 applic Ondansetron HCl (Zofran Inj) 4 mg IVP ONCE PRN PRN Reason: Nausea/Vomiting Oxybutynin Chloride (Ditropan Tab) 5 mg PO BID [facility] Last Admin: 11/07/18 17:30 Dose: 5 mg Polyethylene Glycol (Miralax) 17 gm PO DAILY [facility] Last Admin: 11/07/18 09:38 Dose: 17 gm - Labs Labs: 11/05/18 07:00 11/07/18 07:45 - Constitutional Appears: Non-toxic, No Acute Distress, Chronically Ill - Head Exam Head Exam: ATRAUMATIC, NORMOCEPHALIC - Eye Exam Eye Exam: EOMI, PERRL Pupil Exam: NORMAL ACCOMODATION, PERRL - ENT Exam ENT Exam: Mucous Membranes Moist, Normal External Ear Exam, TM's Normal Bilaterally - Neck Exam Neck Exam: Full ROM, Normal Inspection - Respiratory Exam Respiratory Exam: Clear to Ausculation Bilateral, NORMAL BREATHING PATTERN. absent: Rales, Rhonchi, Wheezes - Cardiovascular Exam Cardiovascular Exam: REGULAR RHYTHM, RRR, +S1, +S2 - GI/Abdominal Exam GI & Abdominal Exam: Soft, Normal Bowel Sounds. absent: Distended, Tenderness - Extremities Exam Extremities Exam: Full ROM, Normal Inspection - Neurological Exam Neurological Exam: Alert, Awake, CN II-XII Intact, Oriented x3 - Psychiatric Exam Psychiatric exam: Normal Affect, Normal Mood - Skin Skin Exam: Intact, Normal Color Assessment and Plan - Assessment and Plan (Free Text) Assessment: 63 yo female well known to me presenting for fevers up to 104 F. History of frequent UTI and metastatic uterine cancer. Possible dehydration as part of fever cause? Creatinine has been better in the past. As high as 3.5 to 3.8 for this hospitalization. Mild leukocytosis. Urine cultures with gram negative nick growth. Prior history of ESBL+ Pseudomonas and E.coli. Start with Meropenem IV for now. R/O sepsis. R/O UTI given patient's history. One dose of Vancomycin given. May need a dose of aminoglycoside. Will give one dose of Gentamicin. Monitor creatinine. Supportive care. No complaints other than fevers at this time. Patient otherwise comfortable. Limited options given the patient's renal function. Continue meropenem. Creatinine at 4.1. Fevers downtrending. Afebrile today so far. On 11/01/2018, the patient had milky white urine and new episodes of fevers. Urine cultures retaken. New cultures retaken are showing Enterococcus sensitive to Vancomycin. Will continue with Meropenem and give doses of Vancomycin. Dr. Weinberg planning for a Castellanos. Stent exchange at his discretion once Vancomycin started (one dose given yesterday will see level for clearance of vancomycin and redose tomorrow especially with the creatinine values increasing). If the creatinine and vancomycin levels remain high, will have to consider use of Zyvox. Giving Vancomycin 1 gm daily IV. For cystoscopy and stent exchange on 11/07/2018. Noted yeast in last urine culture. On IV Vancomycin alone. Recheck Urinalysis and urine cultures. Thank you for allowing me to participate in the care of the patient, we will follow with you.
--- NOTE | 2018-11-08 00:14 | PN ---
DATE: 11/06/2018 IMMEDIATE POSTOP NOTE See the history and physical, consultation note, operative note. The patient is in the recovery room, stable condition. Vital signs are within normal limits. She is status post new stent insertion to both left and right side, left and right hydronephrosis noted. Overall, the patient tolerated procedure without complication. PLAN: The plan is as follows: 1. Maintain St catheter. 2. We will discuss the use of Flomax. Then, the further plans will follow. 3. For now, we are going to maintain the St catheter. The patient has new stents. We will see what the new BUN and creatinines are. Antibiotics will be as per Dr. Lloyd. Yadiel Weinberg MD
[2018-11-08] MEDS: Sodium Chloride 0.45% 1,000 ML IV SCH ×3 (04:24→22:48)
[2018-11-08 04:43] LABS: PH,URINE 6.5 (4.7-8.0); URINE BILIRUBIN NEGATIVE (NEGATIVE); URINE BLOOD MODERATE (NEGATIVE); URINE GLUCOSE (UA) NEGATIVE (NEGATIVE); URINE LEUKOCYTE ESTERASE MODERATE Leu/uL (NEGATIVE); URINE PROTEIN TRACE mg/dL (<30 mg/dL); URINE UROBILINOGEN 0.2 E.U./dL (<1 E.U./dL)
[2018-11-08 04:48] LABS: URINE APPEARANCE SL CLOUDY (CLEAR); URINE COLOR YELLOW (YELLOW)
[2018-11-08 05:13] LABS: URINE BACTERIA SMALL /hpf; URINE EPITHELIAL CELLS 0 - 2 /hpf (0-5); URINE RBC 0 - 2 /hpf (0-2); URINE WBC TNTC /hpf (0-6)
[2018-11-08 07:25] LABS: HEMOGLOBIN 8.5 g/dL (12.0-16.0); MEAN CELL VOLUME 93.2 fl (80.0-105.0); MEAN CORPUSCULAR HEMOGLOBIN 28.9 pg (25.0-35.0); MEAN PLATELET VOLUME 8.3 fl (7.0-11.0); RBC 2.94 10^6/uL (3.5-6.1); RED CELL DISTRIBUTION WIDTH 13.9 % (11.5-14.5); WHITE BLOOD COUNT 4.2 10^3/uL (4.5-11.0)
[2018-11-08 08:03] LABS: CALCIUM 8.5 mg/dL (8.4-10.5)
[2018-11-08] MEDS: Vancomycin 1gm in NS 250ml 1 GM/250 ML BAG IVPB SCH ×2 (10:39→11:21)
[2018-11-08] MEDS: POLYETHYLENE GLYCOL 3350 17 GM/Dose PACKET PO SCH (10:39)
[2018-11-08] MEDS: NIFEdipine 60 mg ER Tab PO SCH (10:39)
[2018-11-08] MEDS: Nystatin 100,000 Units/gm Topical Pow(15 gm) TOP SCH ×2 (10:39→17:37)
--- NOTE | 2018-11-08 10:44 | CP.PCM.PCO ---
Additional Comments - Additional Comments Additional Comments: Pt seen and examined at bedside. Denies any discomfort. Urine output bee and cloudy. UA is positive, pending urine cx. Per ID, continue Vancomycin IV. Per Dr. Weinberg, will need to keep castellanos upon discharge & will need to arrange for vns to help manage with castellanos. Will continue to follow.
--- NOTE | 2018-11-08 14:25 | PN ---
DATE: 11/08/2018 SUBJECTIVE: This 63-year-old female remains hospitalized at the [facility] on the morning of 11/08/2018. She was out of bed to chair. Case was reviewed with her , Joe at the bedside and her nurse practitioner, also present for this interview. The patient declines any consideration of subacute rehab. According to the patient and her , she is able to walk independently and is desirous of discharge to home when medically cleared. At present she has a St catheter draining blood-tinge urine status post cystoscopy with bilateral ureteral stent replacement. She denies any post procedure fever or chills and was treated with a tap water enema for bowel movement 48 hours ago. PHYSICAL EXAMINATION: VITAL SIGNS: Temperature 97.8, respirations 18, pulse 76, blood pressure 139/74 with a pulse ox of 95% on room air. HEAD: Normocephalic, atraumatic. EYES: No icterus. EARS: Clear. THROAT: Noninjected. NECK: Supple. HEART: S1, S2. LUNGS: Clear. ABDOMEN: Obese. No rebound. No guarding. No tenderness. No CVA tenderness. EXTREMITIES: No edema. SKIN: Without rash. NEUROLOGIC: Intact. PSYCHOLOGIC: Alert. VASCULAR: Legs warm to touch. LABORATORY DATA: White count 4200, hemoglobin 8.5, hematocrit 27.4, platelets 225,000. Sodium 140, K 3.9, chloride 112, bicarb 19, BUN 47, creatinine 3.2, random blood sugar 110, calcium 8.5. Vanco trough was high at 20.4. Previous random ankle level 7.3. Blood cultures are showing no growth at 4 days. Urine culture dated 11/03/2018 shows yeast. IMPRESSION: This is a 63-year-old female with recurrent urinary tract infections, now with enterococcal urinary tract infection, being treated with daily IV vancomycin, dose reduced for chronic renal insufficiency with comorbidities of metastatic stage IV uterine cancer causing bilateral obstructive hydronephrosis requiring chronic ureteral stents that were recently changed and also during cystoscopy, the patient was noted to have no evidence of bladder mass, but evidence of urinary retention for which she has a chronic indwelling St at present. Comorbidities also include obesity, chronic hypertension, anemia of chronic disease, iron-deficiency anemia, hyperlipidemia, obstipation, degenerative arthritis and deconditioning. PLAN: The patient will continue on Cardura, clonidine, Ditropan, Femara, Fergon, Lac-Hydrin skin cream, Lipitor, Lopressor, MiraLax, Procardia-XL 0.45 saline at 100 mL/hour, p.r.n. Tylenol, IV vancomycin and p.r.n. Zofran. She is ordered to have a basic metabolic panel in the a.m. and a repeat urine culture has been sent and received by the microbiology lab. She will continue to have a renal heart-healthy diet. She remains on isolation precautions. She is encouraged to ambulate with physical therapy and assistance of her and as discussed in detail with both of them today. She refuses consideration for subacute rehab, but is desirous of discharge to home when medically cleared. As discussed with her nurse practitioner, I have asked her to reach out to Dr. Lloyd to determine duration of treatment of IV antibiotics and also to reach out to Dr. Weinberg from Urology to discuss the plan regarding her current indwelling St. Greater than 35 minutes were spent in the care management, review of labs, orders, x-rays and discussion of this patient with herself, nursing, and case management and co-consultants from Infectious Disease and Urology. All questions were answered Luisa Pa MD [facility]
--- NOTE | 2018-11-08 22:51 | CP.PCM.PN ---
Subjective - Date & Time of Evaluation Date of Evaluation: 11/08/18 Time of Evaluation: 22:00 - Subjective Subjective: Infectious Disease Follow Up: November 08, 2018 63 yo female with known history of metastatic uterine carcinoma. The patient was brought into [facility] for fevers of 102 F at home. Fevers up to 105 F in the past 24 hours. Came to ER on 10/20/2018 and sent home when UA and influenza testing was found to be negative. Mild leukocytosis now of 11.1. Afebrile today. Creatinine remains high at 2.8 but improving. ESBL+ Klebsiella in urine cultures. On Meropenem for treatment that required a few days to break the patient's fever. She was placed in the TRCU to continue Meropenem. On 11/01/2018, patient spiked fever again and had urine cultures repeated. Urine appeared milky white on 11/01/2018. Enterococcus sensitive to Vancomycin noted in the urine. Transferred back to hospital for possible castellanos placement, antibiotic treatment for Klebsiella and Enterococcus, stent replacement prior to discharge. Creatinine at 3.2 today. Renal ultrasound is showing bilateral hydronephrosis with right worse than left. For cystoscopy and stent exchange yesterday. Creatinine slightly improved today. Urine cultures pending. Urinalysis still showing signs of UTI. Objective - Vital Signs/Intake and Output Vital Signs (last 24 hours): Temp Pulse Resp BP Pulse Ox 97.7 F 70 19 139/79 100 11/08/18 22:00 11/08/18 22:00 11/08/18 22:00 11/08/18 22:00 11/08/18 22:00 Intake and Output: 11/08/18 11/09/18 18:59 06:59 Intake Total 260 360 Output Total 900 600 Balance -640 -240 - Medications Medications: Current Medications Acetaminophen (Tylenol 325mg Tab) 650 mg PO Q4H PRN PRN Reason: Pain, moderate (4-7) Last Admin: 11/08/18 21:32 Dose: 650 mg Acetaminophen (Tylenol 325mg Tab) 650 mg PO Q6H PRN PRN Reason: Fever >100.4 F Last Admin: 11/07/18 05:42 Dose: 650 mg Atorvastatin Calcium (Lipitor) 10 mg PO HS [facility] Last Admin: 11/08/18 21:31 Dose: 10 mg Clonidine HCl (Catapres) 0.2 mg PO Q12 [facility] Last Admin: 11/08/18 21:31 Dose: 0.2 mg Doxazosin Mesylate (Cardura) 4 mg PO HS [facility] Last Admin: 11/08/18 21:31 Dose: 4 mg Ferrous Gluconate (Fergon) 324 mg PO DAILY [facility] Last Admin: 11/08/18 10:39 Dose: 324 mg Sodium Chloride (Sodium Chloride 0.45%) 1,000 mls @ 100 mls/hr IV .Q10H [facility] Last Admin: 11/08/18 21:32 Dose: 100 mls/hr Vancomycin HCl (Vancomycin 1gm) 1 gm in 250 mls @ 167 mls/hr IVPB DAILY [facility]; Protocol Last Admin: 11/08/18 11:21 Dose: Not Given Lactic Acid (Lac-Hydrin 12% Cream (140 G)) 0 ea TOP DAILY PRN PRN Reason: Rash Letrozole (Femara) 2.5 mg PO DAILY [facility] Last Admin: 11/08/18 10:54 Dose: 2.5 mg Metoprolol Tartrate (Lopressor) 50 mg PO BID [facility] Last Admin: 11/08/18 17:37 Dose: Not Given Nifedipine (Procardia Xl) 120 mg PO DAILY [facility] Last Admin: 11/08/18 10:39 Dose: 120 mg Nystatin (Nystop Topical Powder) 0 gm TOP BID [facility] Last Admin: 11/08/18 17:37 Dose: 1 applic Ondansetron HCl (Zofran Inj) 4 mg IVP ONCE PRN PRN Reason: Nausea/Vomiting Oxybutynin Chloride (Ditropan Tab) 5 mg PO BID [facility] Last Admin: 11/08/18 17:37 Dose: 5 mg Polyethylene Glycol (Miralax) 17 gm PO DAILY [facility] Last Admin: 11/08/18 10:39 Dose: 17 gm - Labs Labs: 11/08/18 07:15 11/08/18 07:15 - Constitutional Appears: Non-toxic, No Acute Distress, Chronically Ill - Head Exam Head Exam: ATRAUMATIC, NORMOCEPHALIC - Eye Exam Eye Exam: EOMI, PERRL Pupil Exam: NORMAL ACCOMODATION, PERRL - ENT Exam ENT Exam: Mucous Membranes Moist, Normal External Ear Exam, TM's Normal Bilaterally - Neck Exam Neck Exam: Full ROM, Normal Inspection - Respiratory Exam Respiratory Exam: Clear to Ausculation Bilateral, NORMAL BREATHING PATTERN. absent: Rales, Rhonchi, Wheezes - Cardiovascular Exam Cardiovascular Exam: REGULAR RHYTHM, RRR, +S1, +S2 - GI/Abdominal Exam GI & Abdominal Exam: Soft, Normal Bowel Sounds. absent: Distended, Tenderness - Extremities Exam Extremities Exam: Full ROM, Normal Inspection - Neurological Exam Neurological Exam: Alert, Awake, CN II-XII Intact, Oriented x3 - Psychiatric Exam Psychiatric exam: Normal Affect, Normal Mood - Skin Skin Exam: Intact, Normal Color Assessment and Plan - Assessment and Plan (Free Text) Assessment: 63 yo female well known to me presenting for fevers up to 104 F. History of frequent UTI and metastatic uterine cancer. Possible dehydration as part of fever cause? Creatinine has been better in the past. As high as 3.5 to 3.8 for this hospitalization. Mild leukocytosis. Urine cultures with gram negative nick growth. Prior history of ESBL+ Pseudomonas and E.coli. Start with Meropenem IV for now. R/O sepsis. R/O UTI given patient's history. One dose of Vancomycin given. May need a dose of aminoglycoside. Will give one dose of Gentamicin. Monitor creatinine. Supportive care. No complaints other than fevers at this time. Patient otherwise comfortable. Limited options given the patient's renal function. Continue meropenem. Creatinine at 4.1. Fevers downtrending. Afebrile today so far. On 11/01/2018, the patient had milky white urine and new episodes of fevers. Urine cultures retaken. New cultures retaken are showing Enterococcus sensitive to Vancomycin. Will continue with Meropenem and give doses of Vancomycin. Dr. Weinberg planning for a Castellanos. Stent exchange at his discretion once Vancomycin started (one dose given yesterday will see level for clearance of vancomycin and redose tomorrow especially with the creatinine values increasing). If the creatinine and vancomycin levels remain high, will have to consider use of Zyvox. Giving Van comycin 1 gm daily IV. For cystoscopy and stent exchange on 11/07/2018. Noted yeast in last urine c ulture. On IV Vancomycin alone. Recheck Urinalysis and urine cultures. Urinalysis suggesting UTI still. Awaiting repeat urine culture. Thank you for allowing me to participate in the care of the patient, we will follow with you.
[2018-11-09] MEDS: Sodium Chloride 0.45% 1,000 ML IV SCH ×3 (07:48→21:58)
[2018-11-09 07:51] LABS: CALCIUM 8.6 mg/dL (8.4-10.5)
[2018-11-09 08:54] LABS: HEMOGLOBIN 8.4 g/dL (12.0-16.0); MEAN CELL VOLUME 93.4 fl (80.0-105.0); MEAN CORPUSCULAR HEMOGLOBIN 29.1 pg (25.0-35.0); MEAN CORPUSCULAR HGB CONC 31.1 g/dl (31.0-37.0); MEAN PLATELET VOLUME 8.6 fl (7.0-11.0); RBC 2.89 10^6/uL (3.5-6.1); RED CELL DISTRIBUTION WIDTH 13.9 % (11.5-14.5); WHITE BLOOD COUNT 3.6 10^3/uL (4.5-11.0)
[2018-11-09] MEDS: Vancomycin 1gm in NS 250ml 1 GM/250 ML BAG IVPB SCH ×2 (09:09→11:24)
[2018-11-09] MEDS: NIFEdipine 60 mg ER Tab PO SCH (09:38)
[2018-11-09] MEDS: Nystatin 100,000 Units/gm Topical Pow(15 gm) TOP SCH (09:39)
[2018-11-09] MEDS: POLYETHYLENE GLYCOL 3350 17 GM/Dose PACKET PO SCH (09:39)
[2018-11-09] MEDS ORDERED: Epoetin Alfa 40000 UNIT/ml Inj IV ONE (10:14)
[2018-11-09] MEDS ORDERED: Darbepoetin Alfa 40 mcg/ml Inj IVP ONE (10:19)
[2018-11-09] MEDS: Clotrimazole 1% Cream(30 gm) TOP SCH ×2 (11:23→17:41)
--- NOTE | 2018-11-09 11:30 | CP.PCM.PCO ---
Additional Comments - Additional Comments Additional Comments: Repeat urine culture is negative. Per ID, recommends total of 7 days of IV Vancomycin from the date stents were changed (Last dose of Vanco will be 11/12). Discussed plan w/ Dr. Pa. Will continue to follow.
--- NOTE | 2018-11-09 12:58 | PN ---
DATE: 11/09/2018 SUBJECTIVE: This 63-year-old female was examined at her bedside on the morning of , 11/09/2018. Present for this interview was her , Joe, and this case was reviewed in detail with nurse Lucas Chaudhary, nurse practitioner. The patient is out of bed to chair. She has a St catheter draining clear blood-tinged urine. Repeat urine culture has been received but not reported and the patient is on IV vancomycin for latest urine culture showing Enterococcus faecalis. I have reviewed this case with nurse Bonilla who has spoken with Dr. Weinberg, Urology. It is his desire for this patient to be discharged to home with indwelling St and [facility] will be contacted regarding St care and management. On questioning the patient today, she denies any fever, chills, chest pain or shortness of breath. PHYSICAL EXAMINATION: VITAL SIGNS: Temperature is 97.6, respirations 18, pulse 68 and blood pressure 130/68 with a pulse ox of 98% room air. HEENT: Head: Normocephalic, atraumatic. Eyes: No icterus. Ears: Clear. Throat: Noninjected. NECK: Supple. HEART: S1, S2. LUNGS: Clear. ABDOMEN: Obese, nontender. No palpable organomegaly. No rebound, no guarding. No tenderness. No CVA tenderness. EXTREMITIES: No edema. SKIN: Without rash. NEUROLOGICAL: Intact. PSYCHOLOGICAL: Alert. VASCULAR: Legs warm to touch. LABORATORY DATA: White count 3600, hemoglobin 8.4, hematocrit 27, MCV 93 with a platelet count of 255,000. Sodium 140, K 3.9, chloride 112, bicarb 19, BUN 46, creatinine 2.9. Estimated GFR 16 mL per minute. Calcium 8.6. Vanco trough was 20.4. IMPRESSION: A 63-year-old female with a recent urinary tract infection, urosepsis, acute on chronic renal insufficiency in the setting of stage IV metastatic uterine cancer with chronic bilateral hydronephrosis requiring chronic indwelling ureteral catheters and now with urinary retention requiring chronic St catheter with comorbidities of obesity, hypertension, urinary incontinence, anemia of chronic disease, iron-deficiency anemia, chronic renal failure stage 4, hyperlipidemia, obstipation, degenerative arthritis, deconditioning. PLAN: The plan today is to continue physical and occupational therapy for reconditioning and gait training. The patient has declined subacute rehab placement and is desirous when medically cleared for discharge to home. She will continue on Cardura, clonidine, Ditropan, Femara, Fergon, Lac-Hydrin skin cream, Lipitor, Lopressor, clotrimazole 1% topical skin cream to fungal rash, MiraLax, Procardia XL, 0.45 saline at 100 mL per hour, Tylenol p.r.n., IV vancomycin and p.r.n. Zofran. The patient is scheduled to have St catheter training, physical therapy for reconditioning and gait training, incentive spirometry, renal diet, isolation precautions and based on clinical progress, additional diagnostic workup and testing will be entertained. I have asked nurse Jet to reach out to Dr. Nilesh Lloyd to determine course and duration of therapy of IV antibiotics and then, we will begin the process of disposition planning for discharge to home. Greater than 35 minutes was spent in the care, adjustment of orders, review of labs, orders and decision made for this patient today and discussion with her at bedside. All questions were answered. Luisa Pa MD [facility]
--- NOTE | 2018-11-09 18:25 | CP.PCM.PN ---
Subjective - Date & Time of Evaluation Date of Evaluation: 11/09/18 Time of Evaluation: 17:30 - Subjective Subjective: Infectious Disease Follow Up: November 09, 2018 63 yo female with known history of metastatic uterine carcinoma. The patient was brought into [facility] for fevers of 102 F at home. Fevers up to 105 F in the past 24 hours. Came to ER on 10/20/2018 and sent home when UA and influenza testing was found to be negative. Mild leukocytosis now of 11.1. Afebrile today. Creatinine remains high at 2.8 but improving. ESBL+ Klebsiella in urine cultures. On Meropenem for treatment that required a few days to break the patient's fever. She was placed in the TRCU to continue Meropenem. On 11/01/2018, patient spiked fever again and had urine cultures repeated. Urine appeared milky white on 11/01/2018. Enterococcus sensitive to Vancomycin noted in the urine. Transferred back to hospital for possible castellanos placement, antibiotic treatment for Klebsiella and Enterococcus, stent replacement prior to discharge. Creatinine at 2.9 today. Renal ultrasound is showing bilateral hydronephrosis with right worse than left. Had cystoscopy and stent exchange. Creatinine slightly improved today. Urine cultures pending. Urinalysis still showing signs of UTI. Repeat urine cultures negative. Objective - Vital Signs/Intake and Output Vital Signs (last 24 hours): Temp Pulse Resp BP Pulse Ox 57 F L 97 H 20 129/76 97 11/09/18 15:28 11/09/18 15:28 11/09/18 15:28 11/09/18 15:28 11/09/18 15:28 Intake and Output: 11/09/18 11/09/18 06:59 18:59 Intake Total 540 Output Total 2400 500 Balance -1860 -500 - Medications Medications: Current Medications Acetaminophen (Tylenol 325mg Tab) 650 mg PO Q4H PRN PRN Reason: Pain, moderate (4-7) Last Admin: 11/09/18 17:40 Dose: 650 mg Acetaminophen (Tylenol 325mg Tab) 650 mg PO Q6H PRN PRN Reason: Fever >100.4 F Last Admin: 11/07/18 05:42 Dose: 650 mg Atorvastatin Calcium (Lipitor) 10 mg PO HS [facility] Last Admin: 11/08/18 21:31 Dose: 10 mg Clonidine HCl (Catapres) 0.2 mg PO Q12 [facility] Last Admin: 11/09/18 09:39 Dose: 0.2 mg Clotrimazole (Lotrimin 1%) 0 gm TOP BID [facility] Last Admin: 11/09/18 17:41 Dose: 1 applic Doxazosin Mesylate (Cardura) 4 mg PO HS [facility] Last Admin: 11/08/18 21:31 Dose: 4 mg Ferrous Gluconate (Fergon) 324 mg PO DAILY [facility] Last Admin: 11/09/18 09:39 Dose: 324 mg Sodium Chloride (Sodium Chloride 0.45%) 1,000 mls @ 100 mls/hr IV .Q10H [facility] Last Admin: 11/09/18 07:48 Dose: 100 mls/hr Vancomycin HCl (Vancomycin 1gm) 1 gm in 250 mls @ 167 mls/hr IVPB DAILY [facility]; Protocol Last Admin: 11/09/18 11:24 Dose: 167 mls/hr Lactic Acid (Lac-Hydrin 12% Cream (140 G)) 0 ea TOP DAILY PRN PRN Reason: Rash Letrozole (Femara) 2.5 mg PO DAILY [facility] Last Admin: 11/09/18 09:36 Dose: 2.5 mg Metoprolol Tartrate (Lopressor) 50 mg PO BID [facility] Last Admin: 11/09/18 17:41 Dose: 50 mg Nifedipine (Procardia Xl) 120 mg PO DAILY [facility] Last Admin: 11/09/18 09:38 Dose: 120 mg Ondansetron HCl (Zofran Inj) 4 mg IVP ONCE PRN PRN Reason: Nausea/Vomiting Oxybutynin Chloride (Ditropan Tab) 5 mg PO BID [facility] Last Admin: 11/09/18 17:40 Dose: 5 mg Polyethylene Glycol (Miralax) 17 gm PO DAILY [facility] Last Admin: 11/09/18 09:39 Dose: 17 gm - Labs Labs: 11/09/18 07:00 11/09/18 07:00 - Constitutional Appears: Non-toxic, No Acute Distress, Chronically Ill - Head Exam Head Exam: ATRAUMATIC, NORMOCEPHALIC - Eye Exam Eye Exam: EOMI, PERRL Pupil Exam: NORMAL ACCOMODATION, PERRL - ENT Exam ENT Exam: Mucous Membranes Moist, Normal External Ear Exam, TM's Normal Bilaterally - Neck Exam Neck Exam: Full ROM, Normal Inspection - Respiratory Exam Respiratory Exam: Clear to Ausculation Bilateral, NORMAL BREATHING PATTERN. a bsent: Rales, Rhonchi, Wheezes - Cardiovascular Exam Cardiovascular Exam: REGULAR RHYTHM, RRR, +S1, +S2 - GI/Abdominal Exam GI & Abdominal Exam: Soft, Normal Bowel Sounds. absent: Distended, Tenderness - Extremities Exam Extremities Exam: Full ROM, Normal Inspection - Neurological Exam Neurological Exam: Alert, Awake, CN II-XII Intact, Oriented x3 - Psychiatric Exam Psychiatric exam: Normal Affect, Normal Mood - Skin Skin Exam: Intact, Normal Color Assessment and Plan - Assessment and Plan (Free Text) Assessment: 63 yo female well known to me presenting for fevers up to 104 F. His tory of frequent UTI and metastatic uterine cancer. Possible dehydration as part of fever cause? Creatinine has been better in the past. As high as 3.5 to 3.8 for this hospitalization. Mild leukocytosis. Urine cultures with gram negative nick growth. Prior history of ESBL+ Pseudomonas and E.coli. Start with Meropenem IV for now. R/O sepsis. R/O UTI given patient's history. One dose of Vancomycin given. May need a dose of aminoglycoside. Will give one dose of Gentamicin. Monitor creatinine. Supportive care. No complaints other than fevers at this time. Patient otherwise comfortable. Limited options given the patient's renal function. Completed meropenem. Creatinine at 2.9. Fevers resolved. Afebrile. On 11/01/2018, the patient had milky white urine and new episodes of fevers. Urine cultures retaken. New cultures retaken are showing Enterococcus sensitive to Vancomycin. Will continue with Meropenem and give doses of Vancomycin. Dr. Weinberg planning for a Castellanos. Stent exchange at his discretion once Vancomycin started (one dose given yesterday will see level for clearance of vancomycin and redose tomorrow especially with the creatinine values increasing). If the creatinine and vancomycin levels remain high, will have to consider use of Zyvox. Giving Vancomycin 1 gm daily IV. For cystoscopy and stent exchange on 11/07/2018. Noted yeast in last urine cultu re. On IV Vancomycin alone. Recheck Urinalysis and urine cultures. Urinalysis suggesting UTI still. Repeat urine culture is negative from 11/08/2018. Thank you for allowing me to participate in the care of the patient, we will follow with you.
[2018-11-10] MEDS: Sodium Chloride 0.45% 1,000 ML IV SCH ×2 (05:58→17:20)
[2018-11-10 06:54] LABS: HEMOGLOBIN 8.4 g/dL (12.0-16.0); MEAN CELL VOLUME 92.8 fl (80.0-105.0); MEAN CORPUSCULAR HGB CONC 31.2 g/dl (31.0-37.0); MEAN PLATELET VOLUME 8.3 fl (7.0-11.0); RBC 2.9 10^6/uL (3.5-6.1); RED CELL DISTRIBUTION WIDTH 13.8 % (11.5-14.5); WHITE BLOOD COUNT 4.5 10^3/uL (4.5-11.0)
[2018-11-10 07:13] LABS: CALCIUM 8.9 mg/dL (8.4-10.5)
[2018-11-10] MEDS: Clotrimazole 1% Cream(30 gm) TOP SCH ×2 (09:15→17:20)
[2018-11-10] MEDS: NIFEdipine 60 mg ER Tab PO SCH (09:18)
[2018-11-10] MEDS: Vancomycin 1gm in NS 250ml 1 GM/250 ML BAG IVPB SCH (09:20)
[2018-11-10] MEDS: POLYETHYLENE GLYCOL 3350 17 GM/Dose PACKET PO SCH (09:21)
--- NOTE | 2018-11-10 12:20 | PN ---
DATE: 11/10/2018 SUBJECTIVE: This 63-year-old female was examined at her bedside on the morning of 11/10/2018. Present for this interview was her , Joe. The patient was out of bed to chair. We had a lengthy discussion regarding the management of her chronic indwelling St including the adjustment of leg and drainage bags to be used for future duration. The patient denied any fever, chills, chest pain or shortness of breath and as discussed with Dr. Lloyd from Infectious Disease will continue on IV vancomycin for Enterococcal faecalis urinary tract infection for the next 3 days. PHYSICAL EXAMINATION: VITAL SIGNS: Temperature was 97.3, respirations 19, pulse 50 and blood pressure 123/56 with a pulse ox of 99% room air. HEENT: Head: Normocephalic, atraumatic. Eyes: No icterus. Ears: Clear. Throat: Noninjected. NECK: Supple. HEART: S1, S2. LUNGS: Clear. ABDOMEN: Soft. EXTREMITIES: No edema. SKIN: Without rash. NEUROLOGICAL: Intact. PSYCHOLOGICAL: Alert. VASCULAR: Legs warm to touch. LABORATORY DATA: White count 4500, hemoglobin 8.4, hematocrit 26.9, platelets 271,000. Sodium 140, K 4.2, chloride 112, bicarb 21, BUN 43, creatinine 2.8, random blood sugar of 102. Hemoglobin A1c 6.1. IMPRESSION: A 63-year-old female with Enterococcal urinary tract infection, previously Klebsiella pneumoniae urinary tract infection and urosepsis with comorbidities of metastatic uterine cancer stage IV and bilateral obstructive hydronephrosis and chronic renal failure stage 4 with anemia of chronic disease, iron-deficiency anemia, dry skin syndrome, chronic hypertension, hyperlipidemia, obstipation, degenerative arthritis and urine retention. PLAN: At present as discussed with the patient, nursing and will be to continue Cardura, clonidine, Ditropan, Femara, Fergon, Lac-Hydrin skin cream, Lipitor, Lopressor, Lotrimin to her fungal perineal rash daily, MiraLax, Procardia, 0.45 saline, Tylenol, IV vancomycin and Zofran. The patient will be trained on the changing of urinary drainage bags. She will have home visiting nurse association regarding the management of her St catheter under the direction of Dr. Yadiel Weinberg from Urology. She continues on a heart-healthy renal diet. She remains on contact isolation precautions, is receiving bedside physical therapy with ultimate plan for discharge to home when medically stable. Greater than 35 minutes was spent in the care management, review of labs, orders, x-rays, adjustment of medication and discussion of her care with her nurse and case management as well as her . All questions were answered. Luisa Pa MD MTDD
--- NOTE | 2018-11-10 14:29 | CP.PCM.PN ---
Subjective - Date & Time of Evaluation Date of Evaluation: 11/10/18 Time of Evaluation: 13:30 - Subjective Subjective: Infectious Disease Follow Up: November 10, 2018 63 yo female with known history of metastatic uterine carcinoma. The patient was brought into [facility] [place] [place] for fevers of 102 F at home. Fevers up to 105 F in the past 24 hours. Came to ER on 10/20/2018 and sent home when UA and influenza testing was found to be negative. Mild leukocytosis now of 11.1. Afebrile today. Creatinine remains high at 2.8 but improving. ESBL+ Klebsiella in urine cultures. On Meropenem for treatment that required a few days to break the patient's fever. She was placed in the TRCU to continue Meropenem. On 11/01/2018, patient spiked fever again and had urine cultures repeated. Urine appeared milky white on 11/01/2018. Enterococcus sensitive to Vancomycin noted in the urine. Transferred back to hospital for possible castellanos placement, antibiotic treatment for Klebsiella and Enterococcus, stent replacement prior to discharge. Creatinine at 2.8 today. Renal ultrasound is showing bilateral hydronephrosis with right worse than left. Had cystoscopy and stent exchange. Creatinine slightly improved today. Urine cultures pending. Urinalysis still showing signs of UTI. Repeat urine cultures negative. Patient is comfortable. Objective - Vital Signs/Intake and Output Vital Signs (last 24 hours): Temp Pulse Resp BP Pulse Ox 97.3 F L 50 L 19 123/56 L 99 11/10/18 06:00 11/10/18 09:19 11/10/18 06:00 11/10/18 09:19 11/10/18 06:00 Intake and Output: 11/10/18 11/10/18 06:59 18:59 Intake Total 1080 Output Total 1300 Balance -220 - Medications Medications: Current Medications Acetaminophen (Tylenol 325mg Tab) 650 mg PO Q4H PRN PRN Reason: Pain, moderate (4-7) Last Admin: 11/10/18 06:02 Dose: 650 mg Acetaminophen (Tylenol 325mg Tab) 650 mg PO Q6H PRN PRN Reason: Fever >100.4 F Last Admin: 11/07/18 05:42 Dose: 650 mg Atorvastatin Calcium (Lipitor) 10 mg PO HS JAMARI Last Admin: 11/09/18 21:29 Dose: 10 mg Clonidine HCl (Catapres) 0.2 mg PO Q12 [facility] Last Admin: 11/10/18 09:19 Dose: 0.2 mg Clotrimazole (Lotrimin 1%) 0 gm TOP BID [facility] Last Admin: 11/10/18 09:15 Dose: 1 applic Doxazosin Mesylate (Cardura) 4 mg PO HS [facility] Last Admin: 11/09/18 21:29 Dose: 4 mg Ferrous Gluconate (Fergon) 324 mg PO DAILY [facility] Last Admin: 11/10/18 09:18 Dose: 324 mg Sodium Chloride (Sodium Chloride 0.45%) 1,000 mls @ 100 mls/hr IV .Q10H [facility] Last Admin: 11/10/18 05:58 Dose: 100 mls/hr Vancomycin HCl (Vancomycin 1gm) 1 gm in 250 mls @ 167 mls/hr IVPB DAILY [facility]; Protocol Last Admin: 11/10/18 09:20 Dose: 167 mls/hr Lactic Acid (Lac-Hydrin 12% Cream (140 G)) 0 ea TOP DAILY PRN PRN Reason: Rash Letrozole (Femara) 2.5 mg PO DAILY [facility] Last Admin: 11/10/18 09:20 Dose: 2.5 mg Metoprolol Tartrate (Lopressor) 50 mg PO BID [facility] Last Admin: 11/10/18 09:14 Dose: Not Given Nifedipine (Procardia Xl) 120 mg PO DAILY [facility] Last Admin: 11/10/18 09:18 Dose: 120 mg Ondansetron HCl (Zofran Inj) 4 mg IVP ONCE PRN PRN Reason: Nausea/Vomiting Oxybutynin Chloride (Ditropan Tab) 5 mg PO BID [facility] Last Admin: 11/10/18 09:19 Dose: 5 mg Polyethylene Glycol (Miralax) 17 gm PO DAILY [facility] Last Admin: 11/10/18 09:21 Dose: 17 gm - Labs Labs: 11/10/18 06:35 11/10/18 06:35 - Constitutional Appears: Non-toxic, No Acute Distress, Chronically Ill - Head Exam Head Exam: ATRAUMATIC, NORMOCEPHALIC - Eye Exam Eye Exam: EOMI, PERRL Pupil Exam: NORMAL ACCOMODATION, PERRL - ENT Exam ENT Exam: Mucous Membranes Moist, Normal External Ear Exam, TM's Normal Bilaterally - Neck Exam Neck Exam: Full ROM, Normal Inspection - Respiratory Exam Respiratory Exam: Clear to Ausculation Bilateral, NORMAL BREATHING PATTERN. absent: Rales, Rhonchi, Wheezes - Cardiovascular Exam Cardiovascular Exam: REGULAR RHYTHM, RRR, +S1, +S2 - GI/Abdominal Exam GI & Abdominal Exam: Soft, Normal Bowel Sounds. absent: Distended, Tenderness - Extremities Exam Extremities Exam: Full ROM, Normal Inspection - Neurological Exam Neurological Exam: Alert, Awake, CN II-XII Intact, Oriented x3 - Psychiatric Exam Psychiatric exam: Normal Affect, Normal Mood - Skin Skin Exam: Intact, Normal Color Assessment and Plan - Assessment and Plan (Free Text) Assessment: 63 yo female well known to me presenting for fevers up to 104 F. History of frequent UTI and metastatic uterine cancer. Possible dehydration as part of fever cause? Creatinine has been better in the past. As high as 3.5 to 3.8 for this hospitalization. Mild leukocytosis. Urine cultures with gram negative nick growth. Prior history of ESBL+ Pseudomonas and E.coli. Start with Meropenem IV for now. R/O sepsis. R/O UTI given patient's history. One dose of Vancomycin given. May need a dose of aminoglycoside. Will give one dose of Gentamicin. Monitor creatinine. Supportive care. Patient otherwise comfortable. Limited options given the patient's renal function. Completed meropenem. Creatinine at 2.9. Fevers resolved. Afebrile. On 11/01/2018, the patient had milky white urine and new episodes of fevers. Urine cultures retaken. New cultures retaken are showing Enterococcus sensitive to Vancomycin. Will continue with Meropenem and give doses of Vancomycin. Dr. Weinberg planning for a Castellanos. Stent exchange at his discretion once Vancomycin started (one dose given yesterday will see level for clearance of vancomycin and redose tomorrow especially with the creatinine values increasing). If the creatinine and vanc omycin levels remain high, will have to consider use of Zyvox. Giving Vancomycin 1 gm daily IV. For cystoscopy and stent exchange on 11/07/2018. Noted yeast in last urine culture. On IV Vancomycin alone. Recheck Urinalysis and urine cultures. Urinalysis suggesting UTI still. Repeat urine culture is negative from 11/08/2018. Currently patient is comfortable. No new complaints. Thank you for allowing me to participate in the care of the patient, we will follow with you.
[2018-11-10 21:55] VITALS: RESP 18
--- NOTE | 2018-11-11 06:49 | PCM.URO ---
Urology Progress Note - Objective Lab Studies: Reviewed (creatinine is 2.8 no gu changes full note to be dictated) Lab Results Last 24 Hours: Laboratory Results - last 24 hr 11/10/18 11/10/18 11/10/18 06:35 06:35 06:35 WBC 4.5 D RBC 2.90 L Hgb 8.4 L Hct 26.9 L MCV 92.8 MCH 29.0 MCHC 31.2 RDW 13.8 Plt Count 271 MPV 8.3 Sodium 140 Potassium 4.2 Chloride 112 H Carbon Dioxide 21 Anion Gap 11 BUN 43 H Creatinine 2.8 H Est GFR ( Amer) 21 Est GFR (Non-Af Amer) 17 Random Glucose 102 Calcium 8.9 Vancomycin Trough 24.2 H* Intake & Output: Intake & Output 11/10/18 11/10/18 11/11/18 06:59 18:59 06:59 Intake Total 1080 540 Output Total 1300 1400 1050 Balance -220 -1400 -510 Intake: Oral 1080 540 Output: Urine 1300 1400 1050 Urethral (St) 1300 1400 250 Urine, Voided 800 Other: # Bowel Movements 0 0 Vital Signs: Vital Signs - 24 hr 11/10/18 11/10/18 11/10/18 09:14 09:18 09:19 Temperature Pulse Rate 50 L 50 L 50 L Respiratory Rate Blood Pressure 123/56 L 123/56 L 123/56 L O2 Sat by Pulse Oximetry 11/10/18 11/10/18 11/10/18 14:00 21:25 21:54 Temperature 97.2 F L 97.7 F Pulse Rate 62 59 L 59 L Respiratory 20 18 Rate Blood Pressure 135/72 128/76 128/76 O2 Sat by Pulse 95 99 Oximetry
[2018-11-11 08:24] VITALS: O2SAT 97
[2018-11-11] MEDS: NIFEdipine 60 mg ER Tab PO SCH (10:14)
[2018-11-11] MEDS: POLYETHYLENE GLYCOL 3350 17 GM/Dose PACKET PO SCH (10:15)
[2018-11-11] MEDS: Vancomycin 1gm in NS 250ml 1 GM/250 ML BAG IVPB SCH (10:16)
[2018-11-11] MEDS: Sodium Chloride 0.45% 1,000 ML IV SCH (10:17)
[2018-11-11] MEDS: Clotrimazole 1% Cream(30 gm) TOP SCH ×2 (10:17→18:03)
--- NOTE | 2018-11-11 16:54 | CP.PCM.PN ---
Subjective - Date & Time of Evaluation Date of Evaluation: 11/11/18 Time of Evaluation: 15:30 - Subjective Subjective: Infectious Disease Follow Up: November 11, 2018 63 yo female with known history of metastatic uterine carcinoma. The patient was brought into [facility] [place] for fevers of 102 F at home. Fevers up to 105 F in the past 24 hours. Came to ER on 10/20/2018 and sent home when UA and influenza testing was found to be negative. Mild leukocytosis now of 11.1. Afebrile today. Creatinine remains high at 2.8 but improving. ESBL+ Klebsiella in urine cultures. On Meropenem for treatment that required a few days to break the patient's fever. She was placed in the TRCU to continue Meropenem. On 11/01/2018, patient spiked fever again and had urine cultures repeated. Urine appeared milky white on 11/01/2018. Enterococcus sensitive to Vancomycin noted in the urine. Transferred back to hospital for possible castellanos placement, antibiotic treatment for Klebsiella and Enterococcus, stent replacement prior to discharge. Creatinine at 2.8 on last check. Renal ultrasound is showing bilateral hydronephrosis with right worse than left. Had cystoscopy and stent exchange. Creatinine slightly improved today. Urine cultures pending. Urinalysis still showing signs of UTI. Repeat urine cultures negative. Patient is comfortable. Patient has no new complaints. Objective - Vital Signs/Intake and Output Vital Signs (last 24 hours): Temp Pulse Resp BP Pulse Ox 97.6 F 59 L 18 139/76 97 11/11/18 06:00 11/11/18 10:02 11/11/18 06:00 11/11/18 10:02 11/11/18 06:00 Intake and Output: 11/11/18 11/11/18 06:59 18:59 Intake Total 540 Output Total 1050 Balance -510 - Medications Medications: Current Medications Acetaminophen (Tylenol 325mg Tab) 650 mg PO Q4H PRN PRN Reason: Pain, moderate (4-7) Last Admin: 11/11/18 10:28 Dose: 650 mg Acetaminophen (Tylenol 325mg Tab) 650 mg PO Q6H PRN PRN Reason: Fever >100.4 F Last Admin: 11/07/18 05:42 Dose: 650 mg Atorvastatin Calcium (Lipitor) 10 mg PO HS JAMARI Last Admin: 11/10/18 21:26 Dose: 10 mg Clonidine HCl (Catapres) 0.2 mg PO Q12 [facility] Last Admin: 11/11/18 10:15 Dose: 0.2 mg Clotrimazole (Lotrimin 1%) 0 gm TOP BID [facility] Last Admin: 11/11/18 10:17 Dose: 1 applic Doxazosin Mesylate (Cardura) 4 mg PO HS [facility] Last Admin: 11/10/18 21:25 Dose: 4 mg Ferrous Gluconate (Fergon) 324 mg PO DAILY [facility] Last Admin: 11/11/18 10:14 Dose: 324 mg Sodium Chloride (Sodium Chloride 0.45%) 1,000 mls @ 100 mls/hr IV .Q10H [facility] Last Admin: 11/11/18 10:17 Dose: 100 mls/hr Vancomycin HCl (Vancomycin 1gm) 1 gm in 250 mls @ 167 mls/hr IVPB DAILY [facility]; Protocol Last Admin: 11/11/18 10:16 Dose: 167 mls/hr Lactic Acid (Lac-Hydrin 12% Cream (140 G)) 0 ea TOP DAILY PRN PRN Reason: Rash Letrozole (Femara) 2.5 mg PO DAILY [facility] Last Admin: 11/11/18 10:13 Dose: 2.5 mg Metoprolol Tartrate (Lopressor) 50 mg PO BID [facility] Last Admin: 11/11/18 10:02 Dose: Not Given Nifedipine (Procardia Xl) 120 mg PO DAILY [facility] Last Admin: 11/11/18 10:14 Dose: 120 mg Ondansetron HCl (Zofran Inj) 4 mg IVP ONCE PRN PRN Reason: Nausea/Vomiting Oxybutynin Chloride (Ditropan Tab) 5 mg PO BID [facility] Last Admin: 11/11/18 10:13 Dose: 5 mg Polyethylene Glycol (Miralax) 17 gm PO DAILY [facility] Last Admin: 11/11/18 10:15 Dose: 17 gm - Labs Labs: 11/10/18 06:35 11/10/18 06:35 - Constitutional Appears: Non-toxic, No Acute Distress, Chronically Ill - Head Exam Head Exam: ATRAUMATIC, NORMOCEPHALIC - Eye Exam Eye Exam: EOMI, PERRL Pupil Exam: NORMAL ACCOMODATION, PERRL - ENT Exam ENT Exam: Mucous Membranes Moist, Normal External Ear Exam, TM's Normal Bilaterally - Neck Exam Neck Exam: Full ROM, Normal Inspection - Respiratory Exam Respiratory Exam: Clear to Ausculation Bilateral, NORMAL BREATHING PATTERN. absent: Rales, Rhonchi, Wheezes - Cardiovascular Exam Cardiovascular Exam: REGULAR RHYTHM, RRR, +S1, +S2 - GI/Abdominal Exam GI & Abdominal Exam: Soft, Normal Bowel Sounds. absent: Distended, Tenderness - Extremities Exam Extremities Exam: Full ROM, Normal Inspection - Neurological Exam Neurological Exam: Alert, Awake, CN II-XII Intact, Oriented x3 - Psychiatric Exam Psychiatric exam: Normal Affect, Normal Mood - Skin Skin Exam: Intact, Normal Color Assessment and Plan - Assessment and Plan (Free Text) Assessment: 63 yo female well known to me presenting for fevers up to 104 F. History of frequent UTI and metastatic uterine cancer. Possible dehydration as part of fever cause? Creatinine has been better in the past. As high as 3.5 to 3.8 for this hospitalization. Mild leukocytosis. Urine cultures with gram neg ative nick growth. Prior history of ESBL+ Pseudomonas and E.coli. Start with Meropenem IV for now. R/O sepsis. R/O UTI given patient's history. One dose of Vancomycin given. May need a dose of aminoglycoside. Will give one dose of Gentamicin. Monitor creatinine. Supportive care. Patient otherwise comfortable. Limited options given the patient's renal function. Completed meropenem. Creatinine at 2.9. Fevers resolved. Afebrile. On 11/01/2018, the patient had milky white urine and new episodes of fevers. Urine cultures retaken. New cultures retaken are showing Enterococcus sensitive to Vancomycin. Will continue with Meropenem and give doses of Vancomycin. Dr. Weinberg planning for a Castellanos. Stent exchange at his discretion once Vancomycin started (one dose given yesterday will see level for clearance of vancomycin and redose tomorrow especially with the creatinine values increasing). If the creatinine and vancomycin levels remain high, will have to consider use of Zyvox. Giving Vancomycin 1 gm daily IV. For cystoscopy and stent exchange on 11/07/2018. Noted yeast in last urine culture. On IV Vancomycin alone. Recheck Urinalysis and urine cultures. Urinalysis suggesting UTI still. Repeat urine culture is negative from 11/08/2018. Complete 7 days of IV Vancomycin which will be done 11/12/2018. Currently patient is comfortable. No new complaints. Thank you for allowing me to participate in the care of the patient, we will follow with you.
[2018-11-12 07:54] VITALS: TEMP 98.3
[2018-11-12] MEDS: Vancomycin 1gm in NS 250ml 1 GM/250 ML BAG IVPB SCH (09:29)
[2018-11-12] MEDS: NIFEdipine 60 mg ER Tab PO SCH (09:31)
[2018-11-12] MEDS: POLYETHYLENE GLYCOL 3350 17 GM/Dose PACKET PO SCH (09:31)
[2018-11-12] MEDS: Clotrimazole 1% Cream(30 gm) TOP SCH (09:34)
[2018-11-12 09:42] VITALS: BP 168/77; PULSE 66
--- NOTE | 2018-11-12 15:31 | CP.PCM.PN ---
Subjective - Date & Time of Evaluation Date of Evaluation: 11/12/18 Time of Evaluation: 14:00 - Subjective Subjective: Infectious Disease Follow Up: November 12, 2018 63 yo female with known history of metastatic uterine carcinoma. [place] [facility] [place]vers [place] 102 F at home. Fevers up to 105 F in the past 24 hours. Came to ER on 10/20/2018 and sent home when UA and influenza testing was found to be negative. Mild leukocytosis now of 11.1. Afebrile today. Creatinine remains high at 2.8 but improving. ESBL+ Klebsiella in urine cultures. On Meropenem for treatment that required a few days to break the patient's fever. She was placed in the TRCU to continue Meropenem. On 11/01/2018, patient spiked fever again and had urine cultures repeated. Urine appeared milky white on 11/01/2018. Enterococcus sensitive to Vancomycin noted in the urine. Transferred back to hospital for possible castellanos placement, antibiotic treatment for Klebsiella and Enterococcus, stent replacement prior to discharge. Creatinine at 2.8 on last check. Renal ultrasound is showing bilateral hydronephrosis with right worse than left. Had cystoscopy and stent exchange. Creatinine slightly improved today. Urine cultures pending. Urinalysis still showing signs of UTI. Repeat urine cultures negative. Patient is comfortable. Patient has no new complaints. Completing antibiotics today. Objective - Vital Signs/Intake and Output Vital Signs (last 24 hours): Temp Pulse Resp BP Pulse Ox 98.3 F 66 18 168/77 H 97 11/12/18 06:00 11/12/18 09:32 11/12/18 06:00 11/12/18 09:32 11/12/18 06:00 Intake and Output: 11/12/18 11/12/18 06:59 18:59 Intake Total 2600 1270 Output Total 950 1750 Balance 1650 -480 - Labs Labs: 11/10/18 06:35 11/10/18 06:35 - Constitutional Appears: Non-toxic, No Acute Distress, Chronically Ill - Head Exam Head Exam: ATRAUMATIC, NORMOCEPHALIC - Eye Exam Eye Exam: EOMI, PERRL Pupil Exam: NORMAL ACCOMODATION, PERRL - ENT Exam ENT Exam: Mucous Membranes Moist, Normal External Ear Exam, TM's Normal Bilaterally - Neck Exam Neck Exam: Full ROM, Normal Inspection - Respiratory Exam Respiratory Exam: Clear to Ausculation Bilateral, NORMAL BREATHING PATTERN. absent: Rhonchi, Wheezes, Respiratory Distress - Cardiovascular Exam Cardiovascular Exam: REGULAR RHYTHM, RRR, +S1, +S2 - GI/Abdominal Exam GI & Abdominal Exam: Soft, Normal Bowel Sounds. absent: Distended, Tenderness - Extremities Exam Extremities Exam: Full ROM, Normal Inspection - Neurological Exam Neurological Exam: Alert, Awake, CN II-XII Intact, Oriented x3 - Psychiatric Exam Psychiatric exam: Normal Affect, Normal Mood - Skin Skin Exam: Intact, Normal Color Assessment and Plan - Assessment and Plan (Free Text) Assessment: 63 yo female well known to me presenting for fevers up to 104 F. History of frequent UTI and metastatic uterine cancer. Possible dehydration as part of fever cause? Creatinine has been better in the past. As high as 3.5 to 3.8 for this hospitalization. Mild leukocytosis. Urine cultures with gram negative nick growth. Prior history of ESBL+ Pseudomonas and E.coli. Start with Meropenem IV for now. R/O sepsis. R/O UTI given patient's history. One dose of Vancomycin given. May need a dose of aminoglycoside. Will give one dose of Gentamicin. Monitor creatinine. Supportive care. Patient otherwise comfortable. Limited options given the patient's renal function. Completed meropenem. Creatinine at 2.9. Fevers resolved. Afebrile. On 11/01/2018, the patient had milky white urine and new episodes of fevers. Urine cultures retaken. New cultures retaken are showing Enterococcus sensitive to Vancomycin. Will continue with Meropenem and give doses of Vancomycin. Dr. Weinberg planning for a Castellanos. Stent exchange at his discretion once Vancomycin started (one dose given yesterday will see level for clearance of vancomycin and redose tomorrow especially with the creatinine values increasing). If the creatinine and vancomycin levels remain high, will have to consider use of Zyvox. Giving Vancomycin 1 gm daily IV. For cystoscopy and stent exchange on 11/07/2018. Noted yeast in last urine culture. On IV Vancomycin alone. Recheck Urinalysis and urine cultures. Ur inalysis suggesting UTI still. Repeat urine culture is negative from 11/08/2018. Complete 7 days of IV Vancomycin which will be done 11/12/2018. Currently patient is comfortable. No new complaints. Can follow up as outpatient Thank you for allowing me to participate in the care of the patient, we will follow with you.
--- NOTE | 2018-11-13 02:50 | DS ---
DATE OF DISCHARGE; 11/12/2018. FINAL DIAGNOSES: 1. Enterococcus fecalis urinary tract infection, resolved. 2. Urinary retention, improved. 3. Urinary incontinence, improved. 4. Chronic hypertension. 5. Obesity. 6. Metastatic stage IV uterine cancer. 7. Chronic bilateral hydronephrosis. 8. Chronic renal failure, stage IV. 9. Anemia of chronic disease. 10. Iron deficiency anemia. 11. Dry skin syndrome. 12. Hyperlipidemia. 13. Obstipation. 14. Degenerative arthritis. 15. Deconditioning. DISPOSITION: Home with family providing 24-hour supervision. Patient will be discharged with a chronic indwelling St catheter and patient is instructed to follow up with Dr. Yadiel Weinberg in the a.m. regarding duration of St catheter and when he wants it either removed or replaced. Patient also follows with her oncologist, Dr. Kathy Oquendo regarding treatment of her stage IV metastatic uterine cancer. Patient will be seen in my office Tuesday11/20/2018 for medical followup. DISCHARGE DIET: 2 gram sodium, heart-healthy; renal, 60-gram protein diet. DISCHARGE MEDICATIONS: Cardura 4 mg p.o. at bed time, clonidine 0.2 mg p.o. b.i.d., Ditropan 5 mg p.o. b.i.d., Femara 2.5 mg p.o. daily, Fergon 324 mg p.o. daily, Lipitor 10 mg p.o. at bedtime, Lopressor 50 mg b.i.d., MiraLax 17 gram p.o. daily, Procardia XL 120 mg p.o. daily. SUMMARY: This 63-year-old female was admitted to [facility] with Enterococcus fecalis urinary tract infection and need for bilateral ureteral stent replacement, which treats her chronic renal failure stage 4 in the setting of chronic obstructive bilateral hydronephrosis secondary to metastatic uterine cancer, stage IV. Patient was treated with IV vancomycin and at the time of discharge was afebrile, but it was decided by Dr. Silvestre Weinberg from Urology she would be discharged to home with her St catheter, which he will monitor as an outpatient. On the date of discharge, she was noted to be with a temperature of 98.3, respirations 18, pulse 85, blood pressure 144/64 and a pulse ox of 97%. Both patient and have been instructed on the proper use and care of her St catheter including a large and leg bag drainage systems. Her discharge white count is 4500, hemoglobin 8.4, hematocrit 26.9 and platelets 271,000. Sodium 140, potassium 4.2, chloride 112, bicarb 21, BUN 43, creatinine 2.8 and random blood sugar 102 with and estimated GFR of 17 mL/min, calcium 8.9, hemoglobin A1c is 6.1. Most recent urine culture shows no growth. Blood culture showed no growth. Patient is discharged to home with instructions as listed above. Greater than 35 minutes was spent in the discharge management including review of labs, medication and discussion of her necessary followup with nurse Josep Floyd, Registered Nurse. All questions were answered. , Joe was present for the interview. Luisa Pa MD [email or web address]
--- NOTE | 2018-11-13 09:25 | PN ---
DATE: 11/11/2018 SUBJECTIVE: This 63-year-old female was examined at her bedside on the morning of Sunday, November 11, 2018. Present for this interview was her , Joe as well as her medical nurse, Laurie Chaves, registered nurse. The patient was lying in bed. She denied any fever, chills, chest pain or shortness of breath. OBJECTIVE: Vital signs: Temperature was 97.6, respirations 18, pulse 59 and blood pressure 139/76 with a pulse ox of 97% on room air. HEENT: Head, normocephalic, atraumatic. Eyes: No icterus. Ears: Clear. Throat: Noninjected. NECK: Supple. Heart: S1, S2. LUNGS: Clear. ABDOMEN: Obese. EXTREMITIES: No edema. SKIN: Without rash. NEUROLOGICAL: Intact. PSYCHOLOGICAL: Alert. VASCULAR: Legs warm to touch. LABORATORY DATA: White count 4500, hemoglobin 8.4, hematocrit 26.9, platelets 271,000. Sodium 140, K 4.2, chloride 112, bicarb 21, BUN 43, creatinine 2.8, random blood sugar 102, calcium 8.9. IMPRESSION: A 63-year-old female status post urosepsis and recurrent urinary tract infections in the setting of chronic bilateral ureteral stents for chronic bilateral hydronephrosis secondary to metastatic stage IV uterine cancer with comorbidities of obesity, hypertension, urine retention, urine incontinence, iron-deficiency anemia, anemia of chronic disease, dry skin syndrome, hyperlipidemia, hypertension, anemia of chronic illness, degenerative arthritis. PLAN: The patient's most recent urine culture is now clear and the patient will complete IV vancomycin for a recent Enterococcus faecalis urinary tract infection while also be receiving 0.45 saline at 100 mL/hour, Procardia XL 120 mg p.o. daily MiraLax 17 g p.o. daily, Lotrimin cream to perineal area daily, Lopressor 50 mg b.i.d., Lipitor 10 mg p.o. at bedtime, Lac-Hydrin 12% cream to her dry skin, Fergon 324 mg p.o. daily, Femara 2.5 mg p.o. daily, Ditropan 5 mg b.i.d., clonidine 0.2 mg p.o. every 12 hours and Cardura 4 mg p.o. at bedtime. The patient did receive Aranesp injection x1. She will complete vancomycin 1 g IV daily in the morning. She is then going to be readied for discharge to home with close outpatient follow up in my office and with Dr. Yadiel Weinberg from Urology. As discussed with nurse, Anastacio, both the patient and , Joe will be trained on the use of a urinary drainage bag and how to change her evening bag to a leg bag to encourage her getting out of the house on a daily basis. All of this was reviewed in the presence of the patient, and nursing. All questions were answered. Luisa Pa MD
== END 2018-11-12 15:21 | disposition home or self-care (01) | DRG 660 ==
LOC: ED 11:54 → ERH 14:26 → 5RNO 17:49
PROVIDERS: ADMIT Internal Medicine; ATTEND Internal Medicine
PROC: 0T9B70Z Drainage of Bladder with Drainage Device, Via Natural or Artificial Opening (ICD-10-PCS; 2018-11-05)
PROC: 0TP98DZ Removal of Intraluminal Device from Ureter, Via Natural or Artificial Opening Endoscopic (ICD-10-PCS; 2018-11-06)
PROC: BT141ZZ Fluoroscopy of Kidneys, Ureters and Bladder using Low Osmolar Contrast (ICD-10-PCS; 2018-11-06)
PROC: 0T788DZ Dilation of Bilateral Ureters with Intraluminal Device, Via Natural or Artificial Opening Endoscopic (ICD-10-PCS; principal; 2018-11-06 16:00)
DX: I12.0 Hypertensive chronic kidney disease with stage 5 chronic kidney disease or end stage renal disease (principal); N17.9 Acute kidney failure, unspecified; N18.5 Chronic kidney disease, stage 5; N13.6 Pyonephrosis; C78.7 Secondary malignant neoplasm of liver and intrahepatic bile duct; B95.2 Enterococcus as the cause of diseases classified elsewhere; J44.9 Chronic obstructive pulmonary disease, unspecified; E86.0 Dehydration; D63.8 Anemia in other chronic diseases classified elsewhere; R32 Unspecified urinary incontinence; M19.90 Unspecified osteoarthritis, unspecified site; D50.9 Iron deficiency anemia, unspecified; L98.8 Other specified disorders of the skin and subcutaneous tissue; E78.5 Hyperlipidemia, unspecified; K59.00 Constipation, unspecified; E66.9 Obesity, unspecified; Z68.36 Body mass index [BMI] 36.0-36.9, adult; Z87.440 Personal history of urinary (tract) infections; Z85.42 Personal history of malignant neoplasm of other parts of uterus; Z87.11 Personal history of peptic ulcer disease

== ENCOUNTER 2019-01-02 09:23 | Outpatient (CLI) | payer MEDICARE, BC | END 2019-01-02 09:24 | disposition home or self-care (01) | LOC: PAT 09:23 ==